=== PATIENT | female | born 1935 | race Caucasian/White ===

== ENCOUNTER 2017-07-21 10:04 | Inpatient (IN) | payer MEDICARE, OTHER, SELFPAY ==
[2017-07-06 14:56] VITALS: BP 143/67; PULSE 63; RESP 18; TEMP 36.9; O2SAT 98; BMI 30.2
--- NOTE | 2017-07-06 15:05 | EKG12_ITS ---
Test Reason : Blood Pressure : / mmHG Vent. Rate : 069 BPM Atrial Rate : 060 BPM P-R Int : 000 ms QRS Dur : 118 ms QT Int : 462 ms P-R-T Axes : 000 -38 096 degrees QTc Int : 495 ms AV sequential or dual chamber electronic pacemaker Confirmed by ISABEL MCQUEEN, GAEL ([id number]), book editor TERRI MENA ([id number]) on 07/08/2017 2:34:09 PM Referred By: Sukh Parr Confirmed By:GAEL HALL MD
[2017-07-06 16:31] LABS: Hematocrit 42.5 % (37-47); Hemoglobin 14.1 g/dl (12.0-15.0); Mean Corp Hgb Conc 33.2 g/gl (32-36); Mean Corpuscular Volume 99.5 fL (81-99); Mean Platelet Vol. 11.4 fl (6.2-12.0); Platelet Count 167 K/mm3 (150-450); RBC Distribution Width SD 43.1 fl (35.1-43.9); Red Blood Count 4.27 M/mm3 (4.2-5.4); White Blood Count 6.9 K/mm3 (4.4-11.0)
[2017-07-06 16:40] LABS: Scan Indicated on CBC? Y/N NO
[2017-07-06 17:05] LABS: Partial Thromboplast Time 30.1 Seconds (24.1-36.2); Prothrombin Time (Protime)PT. 13.1 SECONDS (11.7-14.9)
[2017-07-06 17:15] LABS: AST(SGOT) 28 U/L (15-37); Alanine Aminotransfer ALT/SGPT 20 U/L (13-56); Albumin, Serum 4.3 g/dL (3.2-5.0); Alkaline Phosphatase 81 U/L (45-117); Anion Gap 9 (5-15); BUN 18 mg/dL (7-18); BUN/Creat Ratio 19.2 RATIO (10-20); Bilirubin, Direct 0.06 mg/dL (0.00-0.30); Calcium,Total 9.4 mg/dL (8.5-10.1); Chloride 102 mmol/L (98-107); Creatinine, Serum 0.94 mg/dL (0.55-1.02); EST Glomerular Filtration Rate 61 mL/min (>60); Est Glom Filt Rate - Afr Amer 74 mL/min (>60); Estimated Creatinine Clearance 37.75 ml/min; Globulin 3.3 g/dL (2.2-4.2); Glucose 101 mg/dL (74-106); Potassium 4.6 mmol/L (3.5-5.1); Protein, Total 7.6 g/dL (6.4-8.2); Sodium Level 139 mmol/L (136-145)
--- NOTE | 2017-07-06 21:24 | PCM.HP.BLA ---
History and Physical DATE OF SERVICE: 07/21/2017 SCHEDULED PROCEDURE: Direct anterior left total hip arthroplasty HISTORY OF PRESENT ILLNESS: This is a 82-year-old female who is been having ongoing pain in the left hip since 2015. Pain can reach as high as an 8-9 out of 10. Pain is been aching. Pain is increased with going up and down stairs, walking any amount of distance and with cold weather. Pain is in the left hip and groin. Patient does report start up pain. Patient has difficult time with activities of daily living including bathing and showering as well as doing housework. Patient denies previous surgery on the left hip. She does use a walker for ambulatory assistance. Patient has the modifier sleeping and sleeps in a recliner due to her pain. After failing conservative measures and discussing all treatment options with Dr. Parr, the patient would like to proceed with a left total hip arthroplasty. Patient currently denies any chest pain, shortness of breath, fevers chills, or recent infections. Patient has obtained surgical clearance from her primary care physician Dr. Austin and cardiac clearance from Dr. Bella. Patient does have medical history pertinent for hypertension, history of previous blood clot and pulmonary embolism, dementia, anemia, previous heart bypass surgery and pacemaker placement, history of atrial fibrillation, ischemic cardiomyopathy. REVIEW OF SYSTEMS: ROS: Const: PT DENIES APPETITE AND WEIGHT CHANGES AT THIS TIME, AND denies anorexia, anxiety and fever,hard of hearing, and vision problems. ENMT: Reports hearing difficulty of the left ear. CV: Reports chest pain, irregular heartbeat, pacemaker and phlebitis, but denies heart murmur and peripheral vascular disease. Resp: Reports pneumonia, sleep apnea and SOB, but denies asthma, cough, tuberculosis and wheezing. GI: Reports heartburn, but denies constipation, diarrhea, nausea, bloody stools and vomiting, and difficulty swallowing. : Genital:. (F Genital Sx) Urinary: denies incontinence. Musculo: Reports trouble walking, but denies leg swelling and weakness and limp. Skin: Denies Raynaud's, history of shingles and tattoo. Neuro: Denies ambulatory dysfunction, dizziness and tremor. Psych: Reports insomnia and stress, but denies anxiety, depression and mental illness. Wilmer/Lymph: Reports anemia, bleeding/bruising tendency and past transfusion. Reviewed, no changes. PAST MEDICAL HISTORY: Advance Care Plan: Other Directive, P.O.A Effective Date: 12/10/2015 PMH: Medical Problems: Arthritis, Congestive Heart Failure (CHF), Coronary Artery Disease (CAD), High Blood Pressure Pacemaker - PACEMAKER WITH DIFIBULATOR Ulcers, History Of Phlebitis, Anemia, Dementiona Stroke - SEPTEMBER 30, 2010 Neuropathy Accidents: Fracture - (09/07/2013) BILAT FEMUR Surgical Hx: Knee Replacement - (2002) LT KNEE [facility] Appendectomy, Gallbladder, Hysterectomy, Tonsillectomy, Cyst Removal Of The Right Breast RT TKR - (10/05/2007) DR MONTESINOS AT [facility] Carpal Tunnel Release RT - (09/14/2008) DR MONTESINOS AT [facility] Pacemaker Replacement - (05/2012) Babak Lens Transplants, Carpal Tunnel Release LT Knee Replacement LT - (09/07/2013) W/FEMUR JUNI Knee Replacement RT - (09/07/2013) W/FEMUR JUNI Open Heart SX - (10/26/2015) @[facility] Anesthesia Complications: None Assistive Devices: Glasses, Hearing Aid, Dentures Reviewed, no changes. SOCIAL HISTORY: SH: Marital: .Occupation: Disabled.Work Status: Disabled.Hand Dominance: Right-handed. Personal Habits: Smoking: Patient is a former smoker.Cigarette Use: Never.Alcohol: Denies use.Drug Use: Denies Use.Enjoy Exercising: Never Exercises. Reviewed, no changes. VITALS: Ht: 59 Wt: 163lb Wt k.937 BMI: 32.9 BP: 134/74 Pulse: 72 Resp: 16 T: 98.1 T: 531.7C ALLERGIES: Tolectin - hives Percocet - vomiting Phenobarbitol - vomiting Tape Nitroglycerin - Patch Lodine - vomitting Donepezil Venlafaxine MEDICATIONS: Quinapril HCL 40mg 1 tab PO qpm, Carvedilol 25 mg 1 PO bid, Aspir-Low 81 mg 1 po qd, Tylenol Extra Strength 500 mg 2 PO prn, Gabapentin 100 mg 1 cap PO at noon and 2 caps PO qhs, Melatonin Maximum Strength 5 mg prn, Coenzyme Q-10 200 mg 1 cap PO daily, Magnesium Oxide 400 mg 1 tab PO qhs, Amlodipine Besylate 10 mg 1 tab PO daily, Furosemide 40 mg 1 tab PO daily, Tramadol HCL 50 mg 1-2 by mouth every 6 hours as needed pain, Atorvastatin Calcium 40 mg 1 by mouth every day, Nitrostat 0.4 mg prn chest pain, Esomeprazole Magnesium 40 mg 1 cap PO daily, Vitamin D3 62239 Unit 1 by mouth every day PRE-OP EXAM: General appearance:NORMAL Other: Eyes: Conjunctivae and lids: NORMAL Pupils: ERR Ears, Nose, Mouth, and Throat: NORMAL Other: Inspection of lips, teeth and gums: NORMAL Other: Neck: Examination of neck: no masses noted. Respiratory: Assessment of respiratory effort: NORMAL Other: Ausculation of lungs: clear to ausculation no wheeses, ronchi or rales. Cardiovascular: Ausculation of heart: regular rate and rhythem, positive systolic mummur, no gallops or rubs. Exam of carotid arteries: NORMAL Other: Gastrointestinal: Exam of abdomen: soft, nontender, nondistended bowel sounds present. Lymphatic: Palpation of nodes in neck: NORMAL Other: Palpation of nodes in Axillae: NORMAL Other: Neurological: see below Psychiatric: Orientation to time, place and person: NORMAL Other: Mood and affect: NORMAL Other: PHYSICAL EXAMINATION: Patient has antalgic gait and uses a walker. Patient has limited internal and external rotation due to pain. She has a 20? flexion hip contracture. Sensations intact light touch. IMAGING STUDIES: X-rays of the left hip were obtained at [facility] [place] on June 15, 2017 which reveals joint space narrowing, subchondral sclerosis, and osteophyte formation consistent with severe hypertrophic osteoarthritis. IMPRESSION: 1. Severe left hip osteoarthritis 2. Hypertension 3. Coronary artery disease 4. Ischemic cardiomyopathy 5. History of heart bypass and pacemaker placement 6. Dementia 7. Anemia 8. History of ulcers 9. Hypercholesterolemia 10. History of stroke 2010 11. Neuropathy 12. History of atrial fibrillation PLAN: Dr. Parr did discuss and review with the patient all treatment options including surgical versus nonsurgical. Patient wishes to proceed with above-stated procedure. Potential risks, benefits, and complications of this procedure were discussed in detail including but not limited to , infection, nerve and blood vessel damage, persistent pain, numbness, tingling, paresthesias, blood clot, pulmonary embolism, and requirement for further surgery. The patient expressed full understanding has no further questions for the doctor. Patient does agree to proceed with the above-stated procedure and has signed the surgery consent form. Surgical clearance has been obtained from primary care physician and support dba. ___ I have re-examined the patient. There are no clinical changes since date of exam. ___ See progress notes for changes. ___ Dictated on admission Date: Time: Signature:
--- NOTE | 2017-07-06 21:34 | HP.PCM_ITS ---
History and Physical DATE OF SERVICE: 07/21/2017 SCHEDULED PROCEDURE: Direct anterior left total hip arthroplasty HISTORY OF PRESENT ILLNESS: This is a 82-year-old female who is been having ongoing pain in the left hip since 2015. Pain can reach as high as an 8-9 out of 10. Pain is been aching. Pain is increased with going up and down stairs, walking any amount of distance and with cold weather. Pain is in the left hip and groin. Patient does report start up pain. Patient has difficult time with activities of daily living including bathing and showering as well as doing housework. Patient denies previous surgery on the left hip. She does use a walker for ambulatory assistance. Patient has the modifier sleeping and sleeps in a recliner due to her pain. After failing conservative measures and discussing all treatment options with Dr. Parr, the patient would like to proceed with a left total hip arthroplasty. Patient currently denies any chest pain, shortness of breath , fevers chills, or recent infections. Patient has obtained surgical clearance from her primary care physician Dr. Austin and cardiac clearance from Dr. Bella. Patient does have medical history pertinent for hypertension, history of previous blood clot and pulmonary embolism, dementia, anemia, previous heart bypass surgery and pacemaker placement, history of atrial fibrillation, ischemic cardiomyopathy. REVIEW OF SYSTEMS: ROS: Const: PT DENIES APPETITE AND WEIGHT CHANGES AT THIS TIME, AND denies anorexia, anxiety and fever,hard of hearing, and vision problems. ENMT: Reports hearing difficulty of the left ear. CV: Reports chest pain, irregular heartbeat, pacemaker and phlebitis, but denies heart murmur and peripheral vascular disease. Resp: Reports pneumonia, sleep apnea and SOB, but denies asthma, cough, tuberculosis and wheezing. GI: Reports heartburn, but denies constipation, diarrhea, nausea, bloody stools and vomiting, and difficulty swallowing. : Genital:. (F Genital Sx) Urinary: denies incontinence. Musculo: Reports trouble walking, but denies leg swelling and weakness and limp. Skin: Denies Raynaud's, history of shingles and tattoo. Neuro: Denies ambulatory dysfunction, dizziness and tremor. Psych: Reports insomnia and stress, but denies anxiety, depression and mental illness. Wilmer/Lymph: Reports anemia, bleeding/bruising tendency and past transfusion. Reviewed, no changes. PAST MEDICAL HISTORY: Advance Care Plan: Other Directive, P.O.A Effective Date: 12/10/2015 PMH: Medical Problems: Arthritis, Congestive Heart Failure (CHF), Coronary Artery Disease (CAD), High Blood Pressure Pacemaker - PACEMAKER WITH DIFIBULATOR Ulcers, History Of Phlebitis, Anemia, Dementiona Stroke - SEPTEMBER 30, 2010 Neuropathy Accidents: Fracture - (09/07/2013) BILAT FEMUR Surgical Hx: Knee Replacement - (2002) LT KNEE [facility] Appendectomy, Gallbladder, Hysterectomy, Tonsillectomy, Cyst Removal Of The Right Breast RT TKR - (10/05/2007) DR MONTESINOS AT [facility] Carpal Tunnel Release RT - (09/14/2008) DR MONTESINOS AT [facility] Pacemaker Replacement - (05/2012) Babak Lens Transplants, Carpal Tunnel Release LT Knee Replacement LT - (09/07/2013) W/FEMUR JUNI Knee Replacement RT - (09/07/2013) W/FEMUR JUNI Open Heart SX - (10/26/2015) @[facility] Anesthesia Complications: None Assistive Devices: Glasses, Hearing Aid, Dentures Reviewed, no changes. SOCIAL HISTORY: SH: Marital: .Occupation: Disabled.Work Status: Disabled.Hand Dominance: Right-handed. Personal Habits: Smoking: Patient is a former smoker.Cigarette Use: Never.Alcohol: Denies use.Drug Use: Denies Use.Enjoy Exercising: Never Exercises. Reviewed, no changes. VITALS: Ht: 59 Wt: 163lb Wt k.937 BMI: 32.9 BP: 134/74 Pulse: 72 Resp: 16 T: 98.1 T: 531.7C ALLERGIES: Tolectin - hives Percocet - vomiting Phenobarbitol - vomiting Tape Nitroglycerin - Patch Lodine - vomitting Donepezil Venlafaxine MEDICATIONS: Quinapril HCL 40mg 1 tab PO qpm, Carvedilol 25 mg 1 PO bid, Aspir-Low 81 mg 1 po qd, Tylenol Extra Strength 500 mg 2 PO prn, Gabapentin 100 mg 1 cap PO at noon and 2 caps PO qhs, Melatonin Maximum Strength 5 mg prn, Coenzyme Q-10 200 mg 1 cap PO daily, Magnesium Oxide 400 mg 1 tab PO qhs, Amlodipine Besylate 10 mg 1 tab PO daily, Furosemide 40 mg 1 tab PO daily, Tramadol HCL 50 mg 1-2 by mouth every 6 hours as needed pain, Atorvastatin Calcium 40 mg 1 by mouth every day, Nitrostat 0.4 mg prn chest pain, Esomeprazole Magnesium 40 mg 1 cap PO daily, Vitamin D3 86427 Unit 1 by mouth every day PRE-OP EXAM: General appearance:NORMAL Other: Eyes: Conjunctivae and lids: NORMAL Pupils: ERR Ears, Nose, Mouth, and Throat: NORMAL Other: Inspection of lips, teeth and gums: NORMAL Other: Neck: Examination of neck: no masses noted. Respiratory: Assessment of respiratory effort: NORMAL Other: Ausculation of lungs: clear to ausculation no wheeses, ronchi or rales. Cardiovascular: Ausculation of heart: regular rate and rhythem, positive systolic mummur, no gallops or rubs. Exam of carotid arteries: NORMAL Other: Gastrointestinal: Exam of abdomen: soft, nontender, nondistended bowel sounds present. Lymphatic: Palpation of nodes in neck: NORMAL Other: Palpation of nodes in Axillae: NORMAL Other: Neurological: see below Psychiatric: Orientation to time, place and person: NORMAL Other: Mood and affect: NORMAL Other: PHYSICAL EXAMINATION: Patient has antalgic gait and uses a walker. Patient has limited internal and external rotation due to pain. She has a 20? flexion hip contracture. Sensations intact light touch. IMAGING STUDIES: X-rays of the left hip were obtained at [facility] [place] on June 15, 2017 which reveals joint space narrowing, subchondral sclerosis, and osteophyte formation consistent with severe hypertrophic osteoarthritis. IMPRESSION: 1. Severe left hip osteoarthritis 2. Hypertension 3. Coronary artery disease 4. Ischemic cardiomyopathy 5. History of heart bypass and pacemaker placement 6. Dementia 7. Anemia 8. History of ulcers 9. Hypercholesterolemia 10. History of stroke 2010 11. Neuropathy 12. History of atrial fibrillation PLAN: Dr. Parr did discuss and review with the patient all treatment options including surgical versus nonsurgical. Patient wishes to proceed with above- stated procedure. Potential risks, benefits, and complications of this procedure were discussed in detail including but not limited to , infection , nerve and blood vessel damage, persistent pain, numbness, tingling, paresthesias, blood clot, pulmonary embolism, and requirement for further surgery. The patient expressed full understanding has no further questions for the doctor. Patient does agree to proceed with the above-stated procedure and has signed the surgery consent form. 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 ___ I have re-examined the patient. There are no clinical changes since date of exam. ___ See progress notes for changes. ___ Dictated on admission Date: Time: Signature:
--- NOTE | 2017-07-16 15:40 | CASEMGMT ---
RN CM called and spoke with patient regarding discharge needs after upcoming surgery. Patient states that he has a walker, cane, shower chair, BSC and denies need for further DME. Patient states she lives alone and Dr. Parr was recommending patient go to a SNF. Patient stated that she has been to [facility] previously and would like to go there again if needed. CATHERINE MEDINA will update SW regarding discharge plans. CATHERINE MEDINA will follow up with patient after surgery and will assist with discharge needs.
[2017-07-21] VITALS (16 sets, daily range): BP systolic 88–147; BP diastolic 36–85; PULSE 65–85; RESP 14–18; TEMP 36.4–37.4; O2SAT 94–100; BMI 30.2; BMI 32.1
--- NOTE | 2017-07-21 | HIP_PTH ---
PATIENT: KITTY MORELOS LOC: [id number] U#:[id number] AGE/SX: 82/F ROOM: [facility] RE07/21/[address]: Dr. Orestes Welch MD : [id number] BED: 1 DIS: 07/24/2017 SPEC #: [id number] RECD: 07/21/17 15:41 STATUS: DANYELLE REJosemanuel #: [id number] JOHN: 07/21/17 00:[address]: Sukh Parr DEPT: SURGICAL PATHOLOGY RECD BY: Nahun Parr ENTERED: 07/21/17 15:42 SP TYPE: TOTAL HIP OTHR DR: MD Dr. Bijan Bronson MD Tissues: Hip, NOS Procedures: Decalcification bone/plaque Surgery Specimen Level IV HEADER OPERATION: Total hip anterior approach PRE-OP DIAGNOSIS: Severe left hip osteoarthritis TISSUE SUBMITTED: Femoral head bone and tissue, left MICROSCOPIC DIAGNOSIS Bone and soft tissue of left hip, total hip resection: Severe degenerative joint disease. AM:miranda 07/24/17 MICROSCOPIC DESCRIPTION Slides are reviewed. GROSS DESCRIPTION Received is one container designated left femoral head, bone and tissue. The specimen consists of a ochoa femoral head with portion of femoral neck. The femoral head measures 4.5 x 5 x 4 cm and the portion of femoral neck measures 2 cm in length. The articular surface displays prominent osteophyte formation, eburnation and bone erosion. The soft tissue entirely consists of bone reamings and measures in aggregate 7 x 7 x 2 cm. Dental Service Chief sections are submitted in two cassettes after decalcification as follows: 1 ? bone reamings, 2 ? femoral head. / SJ:miranda 07/21/17 TC:5 CPT: 03474, 66818
[2017-07-21] MEDS: Acetaminophen 500 MG Tablet 1000 MG PO ×2 (10:53→23:25)
--- NOTE | 2017-07-21 13:10 | RAD_ITS ---
STUDY: X-RAY - PELVIS AND LEFT HIP REASON FOR EXAM: Female, 82 years old. Intraoperative assessment TECHNIQUE: One view of the pelvis and hip was obtained. COMPARISON: July 02, 2013 FINDINGS: The bowel gas pattern is unremarkable. The soft tissues are unremarkable. A limited view of the pelvis shows marked degenerative changes in the left hip joint. Hardware is present in the right hip joint. Fluoroscopy time 6.7 seconds. Cumulative dose 0.56 mGy. RAD/Hip 1 view with Pelvis IMPRESSION: A limited view of the pelvis was submitted from intraoperative evaluation during hip replacement. Electronically Signed: Zenobia Song MD at 15:54 EDT Tel Direct: [phone], Service support ,
[2017-07-21] MEDS: Cefazolin 2 GM in 0.9% Normal Saline 100 ML IV (13:20)
--- NOTE | 2017-07-21 14:58 | PCM.OPRPT ---
Report of Operation Date of Procedure: 07/21/17 Pre-Operative Diagnosis: Left hip primary osteoarthritis Post-Operative Diagnosis: Left hip primary osteoarthritis Surgery/Procedure Performed:: Left total hip replacement Description of Surgical Findings:: Stable hips. On radiographs of the pelvis lesser trochanters were at same level signifying hip anatomy was restored. Medial malleoli did show residual leg length deficit likely due to patient's previous distal femoral replacements bilaterally. director outpatient services: Akbar Williamson Type of Anesthesia:: General Anesthesiologist: Bijan Reed Special Medications: 2 g Ancef, 1 g TXA at incision, 1 g TXA closure, 10 mg Decadron, joint cocktail (5 mg Duramorph, 30 mL of 0.5% Ropivicaine, 1000 units of epinephrine, 30 mg of Toradol), 1.25 g vancomycin preoperatively for positive MRSA swab Specimen's removed: Bony cuts Estimated Blood Loss (mL): 50 Fluids Replaced: 1800 mL crystalloid Description of Procedure: Components used: 1. Gini fit more stem size 4B 2. [place] trident acetabular shell size 52 mm 3. [place] X3 polyethylene alpha code E 4. Gini Biolox delta 36mm, 0mm femoral head Brief history operative indications: 82 yo f who failed conservative measures for their hip osteoarthritis. X-rays were consistent with osteoarthritis including joint space narrowing, osteophyte formation and subchondral cysts. Total hip replacement was discussed with the patient with risks and benefits including but not limited to blood loss, DVTs, PEs, neurovascular damage, dislocation, general risks of anesthesia including loss of life. Patient demonstrated an understanding medical clearance is obtained the patient was consented for surgery. Patient had a history of bilateral distal femoral placement. Based on her cemented femoral stems needed to find a short stem that would accommodate her available anatomy. Elected to use my standard acetabular cup and liner with a Gini fit more stem. I did discuss the patient preoperatively off label use and the reasons why we would use this including her anatomy and long cemented femoral stems from her total knees. Patient demonstrated understanding and was comfortable moving forward. Procedure: On the date of procedure the patient's L hip was marked in the preoperative area. Patient was then taken back to the operating room where anesthesia assumed control of the C-spine and airway and administered anesthetic. Patient was transferred to the operating table and placed in the supine position. The hips were placed at the break of the bed and a sacral bump was placed. The L lower extremity was then prepped out in a sterile fashion using chlorhexidine while the surgeon scrubbed. The PA was vital in the positioning of the patient. Upon reentering the room the L lower extremity was draped in the standard orthopedic fashion and the incision was marked. A timeout was called and everyone agreed upon the side, the site, the procedure be performed, antibody given, and patient's identity. At this time incision was made through skin, subcutaneous tissue, and fat down to fascia. The fascia was then incised and the TFL was retracted laterally. A retractor was placed on the lateral border of the femoral neck. Attention was directed to the inferior portion of the approach and all crossing vessels were identified and appropriately coagulated. A retractor was then placed on the medial portion of the femoral neck. The anterior capsule was then cleared of all soft tissue and then H shaped capsulotomy was made. The retractors were then placed inside the capsule. The femoral neck was identified and a cleanup cut was made. At this time a power corkscrew was used to remove the femoral head. Attention was then turned toward the acetabulum where the soft tissues were appropriately retracted and the acetabulum was sequentially reamed to 51 mm. A 52 mm cup was then selected and impacted into place. Acetabular liner was impacted into place and locking mechanism was verified. The position of the acetabular cup was then verified under live fluoroscopy. Attention was then turned to the femur. Soft tissue releases on the medial and lateral femoral neck were appropriately done, the leg was externally rotated and lateralized. A Ashley retractor was placed medially and proximally to the greater trochanter this allowed appropriate visualization and exposure of the femoral canal. Rongeour was then used to remove excess lateral bone. A canal finder and entry broach were used to open the proximal canal. Once we verified we were down the femoral canal we subsequently broached up to a size 4B femur. The appropriate neck was placed in the previously selected head was trialed with a 0 mm neck. Traction was pulled and the hip was reduced with internal rotation. Once it was appropriately reduced and stability was checked. There was minimal shuck, equal leg lengths and appropriate stability with hyperextension and external rotation as well as with 90? flexion and internal rotation. Fluoroscopy was then also used to verify the position of the components and leg lengths using the contralateral side for comparison. The trial components were then dislocated the proximal femur was again exposed and the components were removed from the wound. The final components were verified and opened. The wound was copiously irrigated out with normal saline. The acetabulum was checked for any residual debris. The final components were placed and impacted. Traction and internal rotation were again used to reduce the hip. After adequate reduction the hip remained stable with appropriate leg lengths pelvic radiograph. The final components were once again checked with live fluoroscopy and were found to be satisfactory. The wound was then copiously irrigated with normal saline once more, and hemostasis was obtained. Closure was then done using #1 Vicryl runner to close the fascia. A 2-0 vicryl interuppted sutures were used to close the subcutaneous skin. A 3-0 Monocryl and Steri-Strips were used for final skin closure. A Silverlon dressing was placed. Patient was awakened by anesthesia and transferred to the [facility]. Patient was then transferred to the PACU for recovery. Postoperative plan: Patient will get 24 hours postop antibiotics. Patient will get in-house physical therapy and will be weight-bear as tolerated. Patient will follow up in office in 2 weeks for a wound check and x-rays. During the course of the procedure the physician cook's assistant played a vital role. His intimate knowledge of my steps in the procedure aided in safe and expedient completion of the procedure. The PA played a vital rolls in positioning particularly in obtaining the appropriate positioning of the sacral bump. The PA was also vital in the retraction of soft tissues during the exposure and especially the femoral work as this is a vital part of the procedure to prevent complications and fractures. The PA was also vital and protecting soft tissues during times of bony cuts and reaming. He also played a vital role in closure with my direct supervision. The PA was also important during reduction and dislocation of the joint and trials intraoperatively. Grafts/Implants Used: Aldo acetabular component, Gini femoral component - Complications none - Admit VTE Documentation VTE Present on Admission: No VTE Mechan Device Prophylaxis: SCD's, Thigh High PENNY Hose VTE Pharm Prophylaxis ordered?: Yes
--- NOTE | 2017-07-21 15:40 | RAD_ITS ---
STUDY: X-RAY - PELVIS AND LEFT HIP REASON FOR EXAM: Female, 82 years old. Postop. TECHNIQUE: Radiological exam, hip, unilateral, with pelvis when performed; 2 or 3 views. COMPARISON: Left hip, July 02, 2013. FINDINGS: There is a non-specific bowel gas pattern. Rectum is distended with air. Normal visualized soft tissue structures. There is generalized osteopenia Normal bilateral iliac wings, sacroiliac joints and visualized sacrum. Normal bilateral superior and inferior pubic rami. Normal pubic symphysis. Normal bilateral ischial tuberosities. There is a left total hip arthroplasty. The prosthetic components are intact and articulate normally with each other. There is no fracture or loosening from the underlying bone. An incidental finding is presence of metallic shadows within the lower femoral medullary cavity suggesting knee replacements. These were not noted on the previous study. RAD/Hip Min 2 Views (Portable) IMPRESSION: Status post left colon hip arthroplasty. Electronically Signed: Santiago Guthrie DO at 16:22 EDT Tel [phone], Service support ,
--- NOTE | 2017-07-21 16:27 | PCM.CONS.GEN ---
Problem List (1) Ischemic cardiomyopathy Status: Chronic (2) Paroxysmal atrial fibrillation Status: Chronic (3) Biventricular ICD (implantable cardioverter-defibrillator) in place Status: Chronic (4) Hyperthyroidism Status: Chronic (5) Atherosclerotic heart disease of [place] coronary artery without angina pectoris Status: Chronic Qualifiers: [place] vs. transplanted heart: [place] heart Qualified Code(s): I25.10 - Atherosclerotic heart disease of [place] coronary artery without angina pectoris Comment: CABG x1 RANDLE-LAD x/Aortic Valve Replacement (6) Nonrheumatic aortic valve stenosis Status: Chronic (7) HTN (hypertension) Status: Chronic (8) Hyperlipidemia Status: Chronic Qualifiers: Hyperlipidemia type: pure hypercholesterolemia Qualified Code(s): E78.00 - Pure hypercholesterolemia, unspecified; E78.00 - Pure hypercholesterolemia, unspecified; E78.00 - Pure hypercholesterolemia, unspecified; E78.0 - Pure hypercholesterolemia (9) Paroxysmal ventricular tachycardia Status: Chronic (10) 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 History of Present Illness: The patient is a 82 year old F with complicated past medical history underwent elective left total hip replacement today for left hip osteoarthritis and I am seeing this patient in medical consultation for postoperative management. At this time, patient in the PACU and she was sleepy. She was easily arousable. She is alert and oriented. She complained of left hip pain which is around 9 out of 10 in severity. She denied chest pain or shortness of breath. Denied abdominal pain, nausea vomiting. She denies fever or chills. She denies cough or sputum production. She had a history of aortic valve replacement with bioprosthetic valve for aortic stenosis. She has history of chronic CHF/ischemic cardiomyopathy status post biventricular ICD and seems to be in euvolemic status at this time. She has history of paroxysmal A. fib status post pacemaker last pacer check was back in April, that showed one episode of nonsustained V. tach. Last 2D echocardiogram was from July, and showed ejection fraction of 55%. At this time, her vital signs are stable, afebrile and pulse ox is 94% on room air. Preoperative routine blood work that was done on July 06, 2017 was unremarkable. At this time, she is on IV cefazolin for perioperative prophylaxis. Past Medical History Past Medical History (Chronic Problems): Chronic Problems (Last Updated 06/23/17 @ 17:11 by BETTIE Batista) Ischemic cardiomyopathy (Chronic) Paroxysmal atrial fibrillation (Chronic) 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) Hyperthyroidism (Chronic) Hypokalemia (Chronic) Atherosclerotic heart disease of [place] coronary artery without angina pectoris (Chronic) CABG x1 RANDLE-LAD x/Aortic Valve Replacement Left bundle-branch block (Chronic) Nonrheumatic aortic valve stenosis (Chronic) HTN (hypertension) (Chronic) Other chest pain (Chronic) Presence of aortocoronary bypass graft (Chronic) Dyspnea on exertion (Chronic) Fatigue (Chronic) Chronic pulmonary heart disease (Chronic) CVA (cerebral infarction) (Chronic) Hyperlipidemia (Chronic) Paroxysmal ventricular tachycardia (Chronic) HTN (hypertension) (Chronic) Hypothyroidism associated with surgical procedure (Chronic) had a subtotal thyroidectomy for goiter Hemorrhoids (Chronic) Restless leg syndrome (Chronic) TIA (transient ischemic attack) (Chronic) multiple Allergies adhesive Allergy (Verified 07/06/17 14:37) Unknown donepezil [Donepezil] Allergy (Verified 07/06/17 14:37) Unknown nitroglycerin Allergy (Verified 07/06/17 14:37) Unknown oxycodone HCl [From Percocet] Allergy (Verified 07/06/17 14:37) Unknown phenobarbital Allergy (Verified 07/06/17 14:37) Unknown tolmetin sodium [From Tolectin] Allergy (Verified 07/06/17 14:37) Unknown venlafaxine Allergy (Verified 07/06/17 14:37) Unknown nitropatch Allergy (Uncoded 07/06/17 14:37) unknown Home Medications: Ambulatory Orders Medication Instructions Recorded Aspirin [Aspirin, Baby] 81 mg PO DAILY@0800 04/09/13 Quinapril HCl [Accupril] 40 mg PO DAILY 07/01/13 Magnesium Oxide [Mag-Ox 400] 400 mg PO DAILY 09/17/15 Nitroglycerin [Nitrostat] 0.4 mg SUBLINGUAL Q5M PRN 09/20/15 acetaminophen 500 mg tablet 1,000 mg PO BID tab 05/05/17 coenzyme Q10 200 mg capsule 200 mg PO DAILY 05/05/17 gabapentin 100 mg capsule 200 mg PO BID 05/05/17 tramadol 50 mg tablet 1 - 2 tablet PO Q6H PRN tab 05/05/17 esomeprazole magnesium 40 mg 40 mg PO DAILY cap 05/07/17 capsule,delayed release melatonin 3 mg tablet 3 mg PO HS PRN 05/07/17 amlodipine 5 mg tablet 5 mg PO DAILY 06/23/17 atorvastatin 40 mg tablet 20 mg PO QHS tab 06/23/17 furosemide 40 mg tablet 40 mg PO DAILY 06/23/17 Carvedilol [Coreg (Beta Gene)] 25 mg PO BID 07/06/17 Cholecalciferol (Vitamin D3) 1,000 unit PO DAILY 07/06/17 [Vitamin D3] Surgical History: appendectomy, cholecystectomy, coronary bypass surgery, hysterectomy - She still has ovaries and fallopian tubes. The hysterectomy was done for dysfunctional uterine bleeding., pacemaker implantation, total hip arthroplasty, - - Bioprosthetic aortic valve replacement with CABG in October 2015 Psychiatric History: No pertinent psych hx CARAM[employer] History: dysfunctional uterine bld Smoking Status: Never smoker Alcohol: None Drugs: None - *Family History Maternal History Items: No pertinent history Paternal History Items: No pertinent history Review of Systems Constitutional: Denies: Anorexia, Chills, Fever, Weakness Eyes: Denies: Blurred vision, Double vision, Drainage, Redness HEENT: Denies: Difficulty Hearing, Ear Pain, Eye Pain, Nasal Congestion, Sore Throat Cardiovascular: Denies: Chest Pain, Chest Tightness, Edema, Heaviness, Palpitations, Syncope Respiratory: Denies: Cough, Pleuritic Pain, Shortness of Breath, Sputum production, Wheezing Gastrointestinal: Denies: Abdominal Pain, Constipation, Diarrhea, Nausea, Vomiting Genitourinary: Denies: Dysuria, Frequency, Hematuria Musculoskeletal: Reports: Joint Pain. Denies: Arm Pain, Back Pain, Foot Pain Skin: Denies: Dryness, Rash Neurological: Denies: Balance problems, Double vision, Change in Speech, Slurred speech, Headaches, Incoordination, Numbness Psychiatric: Denies: Anxiety, Depression Endocrine: Denies: Change in Body Habitus, Polydipsia - Physical Exam General: Alert, Oriented x3, Cooperative, No apparent distress HEENT: Atraumatic, PERRLA, EOMI Oral: Moist Mucosa, No Gingival or Mucosal Lesions/ Ulcerations Neck: Supple, No JVD, Negative Carotid Bruits, Trachea Midline, Thyroid Normal Size and Texture Lungs: Clear to auscultation, No rhonchi, No wheeze, No rales, Diminished Cardiovascular: Regular rate, Regular Rhythm, Normal S1, Normal S2, No murmurs, PMI Normal, Irregular Rate Abdomen: Bowel Sounds Present, Soft, Non Tender, Non-Distended, No Hepato-splenomegaly Extremities: No clubbing, No cyanosis, No edema Skin: No rashes, No breakdown Lymphatic: No Cervical, Supraclavicular, or Inguinal Adenopathy Neurological: Cranial nerves II-XII grossly intact, Neuro grossly intact Psych/Mental Status: Normal Affect, Appropriate Vital Signs Temp Pulse Resp BP Pulse Ox 97.6 F L 68 14 134/72 H 94 07/21/17 15:28 07/21/17 15:28 07/21/17 15:28 07/21/17 15:28 07/21/17 15:28 Oxygen Delivery Method Room Air Weight: 165 lb 5.547 oz Body Mass Index (BMI) 30.2 Finger Stick Blood Glucose 156 Clinical Impression(s) from Imaging Studies Hip/Pelvis X-Ray 07/21/17 13:10 IMPRESSION: A limited view of the pelvis was submitted from intraoperative evaluation during hip replacement. Electronically Signed: Zenobia Song MD at 15:54 EDT Tel Direct: [phone], Service support , Hip X-Ray 07/21/17 15:40 IMPRESSION: Status post left colon hip arthroplasty. Electronically Signed: Santiago Guthrie DO at 16:22 EDT Tel [phone], Service support , Assessment/Plan This is an 82 years old female patient underwent elective left total hip replacement today for left hip osteoarthritis and I am seeing this patient in consultation for postoperative medical management in context of history of multiple complicated medical problems. #1 status post left hip replacement: This was done for left hip osteoarthritis, postoperative day 0. At this time, her vital signs are stable. She is on IV morphine and OxyIR as needed for pain. She is receiving IV cefazolin for perioperative prophylaxis. Preoperative routine blood work reviewed and was unremarkable. Orthopedic surgery is managing. CBC and BMP for tomorrow ordered. #2 hypertension: Blood pressure stable, continue Norvasc and Coreg as well as lisinopril. #3 ischemic cardiomegaly/chronic systolic CHF: Status post biventricular ICD. At this time, she seemed to be in euvolemic status, critical stable. Most recent 2D echocardiogram was from July, with ejection fraction of 55%. Plan: Continue Coreg, lisinopril, aspirin and statins, continue Lasix, avoid large amounts of IV fluids. #4 paroxysmal A. fib, status post pacemaker. Rate stable, blood pressure stable. Continue Coreg for rate control. She is not on anticoagulation. #5 CAD status post CABG: Stable, no acute issues. Patient denied any chest pain. Continue aspirin, statins, beta blockers and ESTUARDO inhibitors. #6 history of stroke/TIA: No complaints, stable. Continue aspirin and statins. #7 status post aortic valve replacement with bioprosthetic valve: Clinically stable, no acute issues. #8 hyperlipidemia: Continue statins. #9 DVT prophylaxis: SCDs for now, plan to start her on Xarelto tomorrow. This note was generated with [employer] dictation software. It may contain incorrect words, spelling, and punctuation that were not noted in checking the note before signing. Code Visit Inpatient E&M: 32494 Init Hosp L2
--- NOTE | 2017-07-21 16:32 | CON.PCM_ITS ---
Problem List (1) Ischemic cardiomyopathy Status: Chronic (2) Paroxysmal atrial fibrillation Status: Chronic (3) Biventricular ICD (implantable cardioverter-defibrillator) in place Status: Chronic (4) Hyperthyroidism Status: Chronic (5) Atherosclerotic heart disease of [place] coronary artery without angina pectoris Status: Chronic Qualifiers: [place] vs. transplanted heart: [place] heart Qualified Code(s): I25.10 - Atherosclerotic heart disease of [place] coronary artery without angina pectoris Comment: CABG x1 RANDLE-LAD x/Aortic Valve Replacement (6) Nonrheumatic aortic valve stenosis Status: Chronic (7) HTN (hypertension) Status: Chronic (8) Hyperlipidemia Status: Chronic Qualifiers: Hyperlipidemia type: pure hypercholesterolemia Qualified Code(s): E78.00 - Pure hypercholesterolemia, unspecified; E78.00 - Pure hypercholesterolemia, unspecified; E78.00 - Pure hypercholesterolemia, unspecified; E78.0 - Pure hypercholesterolemia (9) Paroxysmal ventricular tachycardia Status: Chronic (10) 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 History of Present Illness: The patient is a 82 year old F with complicated past medical history underwent elective left total hip replacement today for left hip osteoarthritis and I am seeing this patient in medical consultation for postoperative management. At this time, patient in the PACU and she was sleepy. She was easily arousable. She is alert and oriented. She complained of left hip pain which is around 9 out of 10 in severity. She denied chest pain or shortness of breath. Denied abdominal pain, nausea vomiting. She denies fever or chills. She denies cough or sputum production. She had a history of aortic valve replacement with bioprosthetic valve for aortic stenosis. She has history of chronic CHF/ ischemic cardiomyopathy status post biventricular ICD and seems to be in euvolemic status at this time. She has history of paroxysmal A. fib status post pacemaker last pacer check was back in April, that showed one episode of nonsustained V. tach. Last 2D echocardiogram was from July, and showed ejection fraction of 55%. At this time, her vital signs are stable, afebrile and pulse ox is 94% on room air. Preoperative routine blood work that was done on July 06, 2017 was unremarkable. At this time, she is on IV cefazolin for perioperative prophylaxis. Past Medical History Past Medical History (Chronic Problems): Chronic Problems (Last Updated 06/23/17 @ 17:11 by BETTIE Batista) Ischemic cardiomyopathy (Chronic) Paroxysmal atrial fibrillation (Chronic) 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) Hyperthyroidism (Chronic) Hypokalemia (Chronic) Atherosclerotic heart disease of [place] coronary artery without angina pectoris (Chronic) CABG x1 RANDLE-LAD x/Aortic Valve Replacement Left bundle-branch block (Chronic) Nonrheumatic aortic valve stenosis (Chronic) HTN (hypertension) (Chronic) Other chest pain (Chronic) Presence of aortocoronary bypass graft (Chronic) Dyspnea on exertion (Chronic) Fatigue (Chronic) Chronic pulmonary heart disease (Chronic) CVA (cerebral infarction) (Chronic) Hyperlipidemia (Chronic) Paroxysmal ventricular tachycardia (Chronic) HTN (hypertension) (Chronic) Hypothyroidism associated with surgical procedure (Chronic) had a subtotal thyroidectomy for goiter Hemorrhoids (Chronic) Restless leg syndrome (Chronic) TIA (transient ischemic attack) (Chronic) multiple Allergies adhesive Allergy (Verified 07/06/17 14:37) Unknown donepezil [Donepezil] Allergy (Verified 07/06/17 14:37) Unknown nitroglycerin Allergy (Verified 07/06/17 14:37) Unknown oxycodone HCl [From Percocet] Allergy (Verified 07/06/17 14:37) Unknown phenobarbital Allergy (Verified 07/06/17 14:37) Unknown tolmetin sodium [From Tolectin] Allergy (Verified 07/06/17 14:37) Unknown venlafaxine Allergy (Verified 07/06/17 14:37) Unknown nitropatch Allergy (Uncoded 07/06/17 14:37) unknown Home Medications: Ambulatory Orders Medication Instructions Recorded Aspirin [Aspirin, Baby] 81 mg PO DAILY@0800 04/09/13 Quinapril HCl [Accupril] 40 mg PO DAILY 07/01/13 Magnesium Oxide [Mag-Ox 400] 400 mg PO DAILY 09/17/15 Nitroglycerin [Nitrostat] 0.4 mg SUBLINGUAL Q5M PRN 09/20/15 acetaminophen 500 mg tablet 1,000 mg PO BID tab 05/05/17 coenzyme Q10 200 mg capsule 200 mg PO DAILY 05/05/17 gabapentin 100 mg capsule 200 mg PO BID 05/05/17 tramadol 50 mg tablet 1 - 2 tablet PO Q6H PRN tab 05/05/17 esomeprazole magnesium 40 mg 40 mg PO DAILY cap 05/07/17 capsule,delayed release melatonin 3 mg tablet 3 mg PO HS PRN 05/07/17 amlodipine 5 mg tablet 5 mg PO DAILY 06/23/17 atorvastatin 40 mg tablet 20 mg PO QHS tab 06/23/17 furosemide 40 mg tablet 40 mg PO DAILY 06/23/17 Carvedilol [Coreg (Beta Gene)] 25 mg PO BID 07/06/17 Cholecalciferol (Vitamin D3) 1,000 unit PO DAILY 07/06/17 [Vitamin D3] Surgical History: appendectomy, cholecystectomy, coronary bypass surgery, hysterectomy - She still has ovaries and fallopian tubes. 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 bld Smoking Status: Never smoker Alcohol: None Drugs: None - *Family History Maternal History Items: No pertinent history Paternal History Items: No pertinent history Review of Systems Constitutional: Denies: Anorexia, Chills, Fever, Weakness Eyes: Denies: Blurred vision, Double vision, Drainage, Redness HEENT: Denies: Difficulty Hearing, Ear Pain, Eye Pain, Nasal Congestion, Sore Throat Cardiovascular: Denies: Chest Pain, Chest Tightness, Edema, Heaviness, Palpitations, Syncope Respiratory: Denies: Cough, Pleuritic Pain, Shortness of Breath, Sputum production, Wheezing Gastrointestinal: Denies: Abdominal Pain, Constipation, Diarrhea, Nausea, Vomiting Genitourinary: Denies: Dysuria, Frequency, Hematuria Musculoskeletal: Reports: Joint Pain. Denies: Arm Pain, Back Pain, Foot Pain Skin: Denies: Dryness, Rash Neurological: Denies: Balance problems, Double vision, Change in Speech, Slurred speech, Headaches, Incoordination, Numbness Psychiatric: Denies: Anxiety, Depression Endocrine: Denies: Change in Body Habitus, Polydipsia - Physical Exam General: Alert, Oriented x3, Cooperative, No apparent distress HEENT: Atraumatic, PERRLA, EOMI Oral: Moist Mucosa, No Gingival or Mucosal Lesions/ Ulcerations Neck: Supple, No JVD, Negative Carotid Bruits, Trachea Midline, Thyroid Normal Size and Texture Lungs: Clear to auscultation, No rhonchi, No wheeze, No rales, Diminished Cardiovascular: Regular rate, Regular Rhythm, Normal S1, Normal S2, No murmurs, PMI Normal, Irregular Rate Abdomen: Bowel Sounds Present, Soft, Non Tender, Non-Distended, No Hepato- splenomegaly Extremities: No clubbing, No cyanosis, No edema Skin: No rashes, No breakdown Lymphatic: No Cervical, Supraclavicular, or Inguinal Adenopathy Neurological: Cranial nerves II-XII grossly intact, Neuro grossly intact Psych/Mental Status: Normal Affect, Appropriate Vital Signs Temp Pulse Resp BP Pulse Ox 97.6 F L 68 14 134/72 H 94 07/21/17 15:28 07/21/17 15:28 07/21/17 15:28 07/21/17 15:28 07/21/17 15:28 Oxygen Delivery Method Room Air Weight: 165 lb 5.547 oz Body Mass Index (BMI) 30.2 Finger Stick Blood Glucose 156 Clinical Impression(s) from Imaging Studies Hip/Pelvis X-Ray 07/21/17 13:10 IMPRESSION: A limited view of the pelvis was submitted from intraoperative evaluation during hip replacement. Electronically Signed: Zenobia Song MD at 15:54 EDT Tel Direct: [phone], Service support , Hip X-Ray 07/21/17 15:40 IMPRESSION: Status post left colon hip arthroplasty. Electronically Signed: Santiago Guthrie DO at 16:22 EDT Tel [phone], Service support , Assessment/Plan This is an 82 years old female patient underwent elective left total hip replacement today for left hip osteoarthritis and I am seeing this patient in consultation for postoperative medical management in context of history of multiple complicated medical problems. #1 status post left hip replacement: This was done for left hip osteoarthritis, postoperative day 0. At this time, her vital signs are stable. She is on IV morphine and OxyIR as needed for pain. She is receiving IV cefazolin for perioperative prophylaxis. Preoperative routine blood work reviewed and was unremarkable. Orthopedic surgery is managing. CBC and BMP for tomorrow ordered. #2 hypertension: Blood pressure stable, continue Norvasc and Coreg as well as lisinopril. #3 ischemic cardiomegaly/chronic systolic CHF: Status post biventricular ICD. At this time, she seemed to be in euvolemic status, critical stable. Most recent 2D echocardiogram was from July, with ejection fraction of 55%. Plan: Continue Coreg, lisinopril, aspirin and statins, continue Lasix, avoid large amounts of IV fluids. #4 paroxysmal A. fib, status post pacemaker. Rate stable, blood pressure stable. Continue Coreg for rate control. She is not on anticoagulation. #5 CAD status post CABG: Stable, no acute issues. Patient denied any chest pain. Continue aspirin, statins, beta blockers and ESTUARDO inhibitors. #6 history of stroke/TIA: No complaints, stable. Continue aspirin and statins. #7 status post aortic valve replacement with bioprosthetic valve: Clinically stable, no acute issues. #8 hyperlipidemia: Continue statins. #9 DVT prophylaxis: SCDs for now, plan to start her on Xarelto tomorrow. This note was generated with [employer] dictation software. It may contain incorrect words, spelling, and punctuation that were not noted in checking the note before signing. Code Visit Inpatient E&M: 42673 Init Hosp L2
--- NOTE | 2017-07-21 16:37 | CASEMGMT ---
Social Work Received referral from RN ADAM that prior to surgery pt requesting SNF placement for rehab at [facility]. Phone call to Zulema at [place] and they do have beds available. SW will followup with pt and fax referral tomorrow after pt receives therapy. FREDA Pantoja
[2017-07-21] MEDS: Lactated Ringers 1,000 ML 125 ML IV (16:45)
[2017-07-21] MEDS: Lactated Ringers 1,000 ML 75 ML IV (18:27)
[2017-07-21] MEDS: Cefazolin 1 GM/50 ML BAG IV (23:23)
[2017-07-21] MEDS: Gabapentin 100 MG Capsule 200 MG PO (23:24)
[2017-07-21] MEDS: Carvedilol 25 MG Tablet PO (23:24)
[2017-07-21] MEDS: Atorvastatin Calcium 20 MG Tablet PO (23:24)
[2017-07-21] MEDS: Senna/Docusate Sodium 1 Tablet 2 TABLET PO (23:25)
[2017-07-22 02:59] VITALS: BP 111/51; PULSE 85; RESP 22; TEMP 37.2; O2SAT 98
[2017-07-22 06:05] LABS: Hematocrit 28.7 % (37-47); Hemoglobin 9.5 g/dl (12.0-15.0); Mean Corp Hgb Conc 33.1 g/gl (32-36); Mean Corpuscular Hgb 33.3 pg (27.0-32.0); Mean Corpuscular Volume 100.7 fL (81-99); Mean Platelet Vol. 11.4 fl (6.2-12.0); Platelet Count 96 K/mm3 (150-450); RBC Distribution Width CV 12.1 % (11.6-14.6); RBC Distribution Width SD 43.5 fl (35.1-43.9); Red Blood Count 2.85 M/mm3 (4.2-5.4); White Blood Count 5.8 K/mm3 (4.4-11.0)
[2017-07-22 06:11] LABS: Scan Indicated on CBC? Y/N NO
[2017-07-22 06:18] LABS: Anion Gap 8 (5-15); BUN 12 mg/dL (7-18); BUN/Creat Ratio 19.9 RATIO (10-20); Chloride 108 mmol/L (98-107); EST Glomerular Filtration Rate 102 mL/min (>60); Est Glom Filt Rate - Afr Amer 123 mL/min (>60); Estimated Creatinine Clearance 35.49 ml/min; Glucose 96 mg/dL (74-106); Potassium 3.1 mmol/L (3.5-5.1); Sodium Level 142 mmol/L (136-145)
[2017-07-22] MEDS: Rivaroxaban 10 MG Tablet PO (06:20)
[2017-07-22] MEDS: Cefazolin 1 GM/50 ML BAG IV (06:20)
[2017-07-22] MEDS: Acetaminophen 500 MG Tablet 1000 MG PO ×3 (06:20→21:16)
--- NOTE | 2017-07-22 07:05 | PN.ORTHO_ITS ---
Subjective: The patient was sitting in bed upon examination. Patient denies any chest pain , shortness of breath, nausea or vomiting, or calf pain. Pain is controlled on medications. No adverse overnight events. Patient does state she plans on going to custodial facility upon discharge at [facility]. - Physical Exam General: Alert, Oriented x3, Cooperative, No apparent distress Vital Signs Temp Pulse Resp BP Pulse Ox 99.0 F 85 22 H 111/51 L 98 07/22/17 02:59 07/22/17 02:59 07/22/17 02:59 07/22/17 02:59 07/22/17 02:59 Oxygen Flow Rate (L/min) 2 Oxygen Delivery Method Nasal Cannula Weight: 79.6 kg Body Mass Index (BMI) 32.1 Finger Stick Blood Glucose 156 Intake and Output for Last 24 Hours 07/20/17 07/21/17 07/22/17 23:59 23:59 23:59 Intake Total 2892 / 2892 689 / 689 Balance 2892 / 2892 689 / 689 Laboratory Tests Past 24 Hrs 07/22/17 07/22/17 05:12 05:12 WBC 5.8 RBC 2.85 L Hgb 9.5 L Hct 28.7 L MCV 100.7 H MCH 33.3 H MCHC 33.1 RDW 12.1 RDW Differential 43.5 Plt Count 96 L MPV 11.4 Sodium 142 Potassium 3.1 L Chloride 108 H Carbon Dioxide 26.0 Anion Gap 8 BUN 12 Creatinine 0.60 Estim Creat Clear Calc 35.49 Est GFR (MDRD) Af Amer 123 Est GFR (MDRD) Non-Af 102 BUN/Creatinine Ratio 19.9 Glucose 96 Calcium 8.0 L Assessment/Plan 1. S/P left total hip arthroplasty POD #1 2. Continue Pain Medications: Tylenol and OxyIR 3. DVT Prophylaxis: Xarelto 4. PT/OT: Weightbearing as tolerated 5. H & H: 9.5/28.7, asymptomatic 6. Encouraged Incentive Spirometry 7. Continue postoperative medical management per medicine 8. Disposition: Plan will be for discharge to custodial facility when medically stable. Case management on board helping with placement.
[2017-07-22] MEDS: 0.9% NaCl Peripheral Flush Adult/Peds IV (08:20)
[2017-07-22 09:00] VITALS: BP 101/50; PULSE 76; RESP 18; TEMP 37.5; O2SAT 95
[2017-07-22] MEDS: oxyCODONE 5 MG Tablet PO ×2 (09:06→14:16)
[2017-07-22] MEDS: Famotidine 20 MG Tablet PO (09:07)
[2017-07-22] MEDS: Pantoprazole Sodium 40 MG Tablet PO (09:07)
[2017-07-22] MEDS: Magnesium Oxide 400 MG Tablet PO (09:07)
[2017-07-22] MEDS: Aspirin 81 MG TAB.CHEW PO (09:07)
[2017-07-22] MEDS: Senna/Docusate Sodium 1 Tablet 2 TABLET PO ×2 (09:07→21:16)
--- NOTE | 2017-07-22 09:39 | PCM.PN.HOSP ---
Subjective: Patient is an 82-year-old lady who underwent elective left total hip replacement on 07/21/2017 on account of severe osteoarthritis involving the left hip. The hospitalist service was consulted to manage patient medical comorbidities including hypertension 07/22/2017: Patient seen blood pressure relatively low has scheduled antihypertensive medications subsequently held Objective: GENERAL: cooperative HEENT: Clear conjunctiva, NECK; supple, normal thyroid, CHEST: Diminished to auscultation bilaterally, HEART: Regular S1 S2, no audible murmurs ABDOMEN: soft, non-tender, normoactive bowel sounds, RECTAL: deferred EXTREMITIES: No edema, no clubbing, no cyanosis. 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 SKIN: No Rash Vitals/I&O's: Vital Signs Temp Pulse Resp BP Pulse Ox 99.0 F 85 22 H 111/51 L 98 07/22/17 02:59 07/22/17 02:59 07/22/17 02:59 07/22/17 02:59 07/22/17 02:59 Oxygen Flow Rate (L/min) 2 Oxygen Delivery Method Nasal Cannula Weight: 79.6 kg Body Mass Index (BMI) 32.1 Finger Stick Blood Glucose 156 Intake and Output for Last 24 Hours 07/20/17 07/21/17 07/22/17 23:59 23:59 23:59 Intake Total 2892 / 2892 689 / 689 Balance 2892 / 2892 689 / 689 Laboratory Results 07/22/17 05:12: WBC 5.8, RBC 2.85 L, Hgb 9.5 L, Hct 28.7 L, MCV 100.7 H, MCH 33.3 H, MCHC 33.1, RDW 12.1, RDW Differential 43.5, Plt Count 96 L, MPV 11.4 07/22/17 05:12: Sodium 142, Potassium 3.1 L, Chloride 108 H, Carbon Dioxide 26.0, Anion Gap 8, BUN 12, Creatinine 0.60, Estim Creat Clear Calc 35.49, Est GFR (MDRD) Af Amer 123, Est GFR (MDRD) Non-Af 102, BUN/Creatinine Ratio 19.9, Glucose 96, Calcium 8.0 L Current Medications Acetaminophen (Tylenol) 1,000 mg PO Q8 [facility] Last Admin: 07/22/17 06:20 Dose: 1,000 mg Amlodipine Besylate (Norvasc) 5 mg PO DAILY [facility] Last Admin: 07/22/17 09:23 Dose: Not Given Aspirin (Aspirin, Baby) 81 mg PO DAILY@0800 [facility] Last Admin: 07/22/17 09:07 Dose: 81 mg Atorvastatin Calcium (Lipitor) 20 mg PO QHS [facility] Last Admin: 07/21/17 23:24 Dose: 20 mg Carvedilol (Coreg) 25 mg PO BID [facility] Last Admin: 07/22/17 09:02 Dose: Not Given Cholecalciferol (Vitamin D) 1,000 unit PO DAILY [facility] Last Admin: 07/22/17 09:07 Dose: 1,000 unit Famotidine (Pepcid) 20 mg PO DAILY [facility] Last Admin: 07/22/17 09:07 Dose: 20 mg Furosemide (Lasix) 40 mg PO DAILY [facility] Last Admin: 07/22/17 09:22 Dose: Not Given Gabapentin (Neurontin) 200 mg PO QHS [facility] Last Admin: 07/21/17 23:24 Dose: 200 mg Gabapentin (Neurontin) 100 mg PO LUNCH [facility] Ketorolac Tromethamine (Toradol) 15 mg IV Q6H PRN PRN PRN Reason: MILD-MOD PAIN (1-5/10) Lisinopril (Zestril) 40 mg PO DAILY [facility] Last Admin: 07/22/17 09:23 Dose: Not Given Magnesium Oxide (Mag-Ox 400) 400 mg PO DAILY [facility] Last Admin: 07/22/17 09:07 Dose: 400 mg Melatonin (Melatonin) 3 mg PO QHS PRN PRN Reason: SLEEP Morphine Sulfate (Morphine) 2 - 4 mg IV Q2H PRN PRN PRN Reason: SEVERE PAIN (6-10/10) Morphine Sulfate (Morphine) 2 - 4 mg IV Q2H PRN PRN PRN Reason: SEVERE PAIN (6-10/10) Nitroglycerin (Nitrostat) 0.4 mg SUBLINGUAL Q5M PRN PRN Reason: Chest Pain Nutritional Formula (Lactose Free) (Ensure Enlive) 120 ml PO TIDCM [facility] Last Admin: 07/22/17 09:15 Dose: 120 ml Ondansetron HCl (Zofran) 4 mg IV Q8H PRN PRN PRN Reason: NAUSEA Oxycodone HCl (Oxyir) 5 - 10 mg PO Q4H PRN PRN PRN Reason: MOD-SEVERE PAIN (4-10/10) Last Admin: 07/22/17 09:06 Dose: 10 mg Pantoprazole Sodium (Protonix) 40 mg PO DAILY [facility] Last Admin: 07/22/17 09:07 Dose: 40 mg Promethazine HCl (Phenergan (Ll)) 12.5 mg IM Q6H PRN PRN; Protocol PRN Reason: NAUSEA/VOMITING Rivaroxaban (Xarelto) 10 mg PO DAILY@0600 [facility] Last Admin: 07/22/17 06:20 Dose: 10 mg Senna/Docusate Sodium (Senokot-S, Dilia-Colace) 2 tablet PO BID [facility] Last Admin: 07/22/17 09:07 Dose: 2 tablet Sodium Chloride () 5 - 30 ml IV UD PRN PRN Reason: SALINE FLUSH Last Admin: 07/22/17 08:20 Dose: 10 ml Assessment/Plan Patient is an 82-year-old lady who underwent elective left total hip replacement on 07/21/2017 on account of severe osteoarthritis involving the left hip. The hospitalist service was consulted to manage patient medical comorbidities including hypertension 1. Status post elective left total hip replacement on 07/21/2017 on account of severe osteoarthritis involving the left hip. The hospitalist service was consulted to manage patient medical comorbidities including hypertension and postoperative orders regarding pain management DVT prophylaxis and PT OT addressed by primary service 2. Hypertension patient blood pressure medications on hold on the morning of 07/22/2017 as a result of patient being relatively hypotensive 3. CAD with previous CABG 4. Ischemic cardiomyopathy status post biventricular ICD echo obtained in July 2016 demonstrated EF of 55%. Patient is on optimal medical treatment 5. Paroxysmal A. fib rate controlled 6. Conduction system disorder status post pacemaker placement 7. Status post aortic valve replacement with bioprosthetic valve 8. Dyslipidemia-patient is on statin therapy, continued at home dose 9. Secondary to acute blood loss anemia following surgery monitoring H&H with plans to transfuse if hemoglobin falls below 7 or patient becomes symptomatic 10. DVT Prophylaxis p.o. Xarelto Code Visit Inpatient E&M: [id number] [place] [id number]
--- NOTE | 2017-07-22 09:44 | PN_ITS ---
Subjective: Patient is an 82-year-old lady who underwent elective left total hip replacement on 07/21/2017 on account of severe osteoarthritis involving the left hip. The hospitalist service was consulted to manage patient medical comorbidities including hypertension 07/22/2017: Patient seen blood pressure relatively low has scheduled antihypertensive medications subsequently held Objective: GENERAL: cooperative HEENT: Clear conjunctiva, NECK; supple, normal thyroid, CHEST: Diminished to auscultation bilaterally, HEART: Regular S1 S2, no audible murmurs ABDOMEN: soft, non-tender, normoactive bowel sounds, RECTAL: deferred EXTREMITIES: No edema, no clubbing, no cyanosis. CARE MANAGER: Awake, no lateralizing signs. SKIN: No Rash Vitals/I&O's: Vital Signs Temp Pulse Resp BP Pulse Ox 99.0 F 85 22 H 111/51 L 98 07/22/17 02:59 07/22/17 02:59 07/22/17 02:59 07/22/17 02:59 07/22/17 02:59 Oxygen Flow Rate (L/min) 2 Oxygen Delivery Method Nasal Cannula Weight: 79.6 kg Body Mass Index (BMI) 32.1 Finger Stick Blood Glucose 156 Intake and Output for Last 24 Hours 07/20/17 07/21/17 07/22/17 23:59 23:59 23:59 Intake Total 2892 / 2892 689 / 689 Balance 2892 / 2892 689 / 689 Laboratory Results 07/22/17 05:12: WBC 5.8, RBC 2.85 L, Hgb 9.5 L, Hct 28.7 L, MCV 100.7 H, MCH 33.3 H, MCHC 33.1, RDW 12.1, RDW Differential 43.5, Plt Count 96 L, MPV 11.4 07/22/17 05:12: Sodium 142, Potassium 3.1 L, Chloride 108 H, Carbon Dioxide 26.0 , Anion Gap 8, BUN 12, Creatinine 0.60, Estim Creat Clear Calc 35.49, Est GFR ( MDRD) Af Amer 123, Est GFR (MDRD) Non-Af 102, BUN/Creatinine Ratio 19.9, Glucose 96, Calcium 8.0 L Current Medications Acetaminophen (Tylenol) 1,000 mg PO Q8 [facility] Last Admin: 07/22/17 06:20 Dose: 1,000 mg Amlodipine Besylate (Norvasc) 5 mg PO DAILY [facility] Last Admin: 07/22/17 09:23 Dose: Not Given Aspirin (Aspirin, Baby) 81 mg PO DAILY@0800 [facility] Last Admin: 07/22/17 09:07 Dose: 81 mg Atorvastatin Calcium (Lipitor) 20 mg PO QHS [facility] Last Admin: 07/21/17 23:24 Dose: 20 mg Carvedilol (Coreg) 25 mg PO BID [facility] Last Admin: 07/22/17 09:02 Dose: Not Given Cholecalciferol (Vitamin D) 1,000 unit PO DAILY [facility] Last Admin: 07/22/17 09:07 Dose: 1,000 unit Famotidine (Pepcid) 20 mg PO DAILY [facility] Last Admin: 07/22/17 09:07 Dose: 20 mg Furosemide (Lasix) 40 mg PO DAILY [facility] Last Admin: 07/22/17 09:22 Dose: Not Given Gabapentin (Neurontin) 200 mg PO QHS [facility] Last Admin: 07/21/17 23:24 Dose: 200 mg Gabapentin (Neurontin) 100 mg PO LUNCH [facility] Ketorolac Tromethamine (Toradol) 15 mg IV Q6H PRN PRN PRN Reason: MILD-MOD PAIN (1-5/10) Lisinopril (Zestril) 40 mg PO DAILY [facility] Last Admin: 07/22/17 09:23 Dose: Not Given Magnesium Oxide (Mag-Ox 400) 400 mg PO DAILY [facility] Last Admin: 07/22/17 09:07 Dose: 400 mg Melatonin (Melatonin) 3 mg PO QHS PRN PRN Reason: SLEEP Morphine Sulfate (Morphine) 2 - 4 mg IV Q2H PRN PRN PRN Reason: SEVERE PAIN (6-10/10) Morphine Sulfate (Morphine) 2 - 4 mg IV Q2H PRN PRN PRN Reason: SEVERE PAIN (6-10/10) Nitroglycerin (Nitrostat) 0.4 mg SUBLINGUAL Q5M PRN PRN Reason: Chest Pain Nutritional Formula (Lactose Free) (Ensure Enlive) 120 ml PO TIDCM [facility] Last Admin: 07/22/17 09:15 Dose: 120 ml Ondansetron HCl (Zofran) 4 mg IV Q8H PRN PRN PRN Reason: NAUSEA Oxycodone HCl (Oxyir) 5 - 10 mg PO Q4H PRN PRN PRN Reason: MOD-SEVERE PAIN (4-10/10) Last Admin: 07/22/17 09:06 Dose: 10 mg Pantoprazole Sodium (Protonix) 40 mg PO DAILY [facility] Last Admin: 07/22/17 09:07 Dose: 40 mg Promethazine HCl (Phenergan (Ll)) 12.5 mg IM Q6H PRN PRN; Protocol PRN Reason: NAUSEA/VOMITING Rivaroxaban (Xarelto) 10 mg PO DAILY@0600 [facility] Last Admin: 07/22/17 06:20 Dose: 10 mg Senna/Docusate Sodium (Senokot-S, Dilia-Colace) 2 tablet PO BID [facility] Last Admin: 07/22/17 09:07 Dose: 2 tablet Sodium Chloride () 5 - 30 ml IV UD PRN PRN Reason: SALINE FLUSH Last Admin: 07/22/17 08:20 Dose: 10 ml Assessment/Plan Patient is an 82-year-old lady who underwent elective left total hip replacement on 07/21/2017 on account of severe osteoarthritis involving the left hip. The hospitalist service was consulted to manage patient medical comorbidities including hypertension 1. Status post elective left total hip replacement on 07/21/2017 on account of severe osteoarthritis involving the left hip. The hospitalist service was consulted to manage patient medical comorbidities including hypertension and postoperative orders regarding pain management DVT prophylaxis and PT OT addressed by primary service 2. Hypertension patient blood pressure medications on hold on the morning of as a result of patient being relatively hypotensive 3. CAD with previous CABG 4. Ischemic cardiomyopathy status post biventricular ICD echo obtained in July 2016 demonstrated EF of 55%. Patient is on optimal medical treatment 5. Paroxysmal A. fib rate controlled 6. Conduction system disorder status post pacemaker placement 7. Status post aortic valve replacement with bioprosthetic valve 8. Dyslipidemia-patient is on statin therapy, continued at home dose 9. Secondary to acute blood loss anemia following surgery monitoring H&H with plans to transfuse if hemoglobin falls below 7 or patient becomes symptomatic 10. DVT Prophylaxis p.o. Xarelto Code Visit Inpatient E&M: [id number] [place] [id number]
--- NOTE | 2017-07-22 11:05 | CASEMGMT ---
Social Work Met with pt in room and introduced role of SW. Pt lives [place] and has been independent with ADLs and IADLs. Pt does not drive but does have three local daughters who are supportive and assist with transportation as needed. Pt has a walker, cane, shower chair and 3 in 1 commode. SW verified demographics and pcp. Pt also sees Dr. Bella and uses [facility]. Pt states she does have a living will and a health care POA which names her daughters Noemy and Teresa but documents are not on file. Pt does not feel she can return home upon d/c and would benefit from rehab at a SNF. Pt would prefer [facility] as she has been there twice before. Pt states she has also had home health services in the past but does not recall which agency was used. Referral faxed to Zulema at [facility]. Will await determination. FREDA Pantoja
[2017-07-22] MEDS: Gabapentin 100 MG Capsule PO (11:48)
[2017-07-22 14:15] VITALS: BP 110/70; PULSE 77; RESP 16; TEMP 37.6; O2SAT 97
--- NOTE | 2017-07-22 14:32 | CASEMGMT ---
Social Work Return call from Zulema at [facility] and they are able to accept pt on Thursday. SW met with pt and informed that she can go to [facility] upon d/c. Offered to call dgt and inform of d/c plan. Pt denied stating she will inform her dgt later today. SW informed pt that HCPOA and LW are not in EMR and requested pt ask family to bring documents into [facility] for scanning. Pt agreeable. Plan: [facility], Thursday FREDA Pantoja
--- NOTE | 2017-07-22 16:05 | CHAPLAIN ---
Type of Pastoral Visit _x__ Initial Visit ___ Follow-up Visit ___ On-call Visit ___ General Patient Visit ___ Spiritual Assessment ___ Family Conference ___ Bereavement ___ Rapid Response ___ Code Blue ___ Other (describe below) Pastoral Care Referral From _x__ Patient ___ Family ___ Nurse ___ Physician ___ Commercial Energy Rater ___ Photolithographic Stripper ___ Other (describe below) Sacrament/Intervention _x__ Active listening ___ Anointing ___ Amish ___ Bereavement ___ Communion ___ Yaneth exploration ___ ___ Life review _x__ Prayer ___ Reconciliation ___ Sacrament of Sick ___ Supportive presence ___ Wedding ___ Other (describe below) Pastoral Comments
[2017-07-22 20:15] VITALS: BP 113/78; PULSE 79; RESP 16; TEMP 37.6; O2SAT 95
[2017-07-22] MEDS: Gabapentin 100 MG Capsule 200 MG PO (21:16)
[2017-07-22] MEDS: Carvedilol 25 MG Tablet PO (21:16)
[2017-07-22] MEDS: Atorvastatin Calcium 20 MG Tablet PO (21:16)
[2017-07-23 02:45] VITALS: BP 123/42; PULSE 80; RESP 16; TEMP 37.4; O2SAT 94
[2017-07-23] MEDS: Acetaminophen 500 MG Tablet 1000 MG PO ×3 (05:27→20:40)
[2017-07-23] MEDS: Rivaroxaban 10 MG Tablet PO (05:27)
[2017-07-23 06:38] LABS: Hematocrit 28.7 % (37-47); Hemoglobin 9.5 g/dl (12.0-15.0); Mean Corp Hgb Conc 33.1 g/gl (32-36); Mean Corpuscular Hgb 33.3 pg (27.0-32.0); Mean Corpuscular Volume 100.7 fL (81-99); Mean Platelet Vol. 11.7 fl (6.2-12.0); Platelet Count 90 K/mm3 (150-450); RBC Distribution Width SD 43.1 fl (35.1-43.9); Red Blood Count 2.85 M/mm3 (4.2-5.4); White Blood Count 6.8 K/mm3 (4.4-11.0)
[2017-07-23 06:42] LABS: Scan Indicated on CBC? Y/N NO
[2017-07-23 09:19] VITALS: BP 117/65; PULSE 80; RESP 20; TEMP 36.8; O2SAT 94
[2017-07-23] MEDS: Aspirin 81 MG TAB.CHEW PO (09:21)
[2017-07-23] MEDS: Carvedilol 25 MG Tablet PO ×2 (09:22→20:40)
[2017-07-23] MEDS: Furosemide 40 MG Tablet PO (09:22)
[2017-07-23] MEDS: Magnesium Oxide 400 MG Tablet PO (09:22)
[2017-07-23] MEDS: Senna/Docusate Sodium 1 Tablet 2 TABLET PO ×2 (09:23→20:39)
[2017-07-23] MEDS: amLODIPine 5 MG Tablet PO (09:23)
[2017-07-23] MEDS: Pantoprazole Sodium 40 MG Tablet PO (09:23)
[2017-07-23] MEDS: Famotidine 20 MG Tablet PO (09:23)
[2017-07-23] MEDS: Gabapentin 100 MG Capsule PO (09:24)
[2017-07-23 09:35] VITALS: PULSE 84
--- NOTE | 2017-07-23 10:53 | PN_ITS ---
Subjective: Seen has tolerated physical therapy well. Pain is under control. Patient denies any shortness of breath no chest pain no nausea no vomiting. Had a relatively uneventful night. Objective: GENERAL: cooperative HEENT: Clear conjunctiva, NECK; supple, normal thyroid, CHEST: Diminished to auscultation bilaterally, HEART: Regular S1 S2, no audible murmurs ABDOMEN: soft, non-tender, normoactive bowel sounds, RECTAL: deferred EXTREMITIES: No edema, no clubbing, no cyanosis. DIGITAL DESIGN ENGINEER: Awake, no lateralizing signs. SKIN: No Rash Vitals/I&O's: Vital Signs Temp Pulse Resp BP Pulse Ox 98.2 F 84 20 H 117/65 94 07/23/17 09:19 07/23/17 09:35 07/23/17 09:19 07/23/17 09:19 07/23/17 09:19 Oxygen Flow Rate (L/min) 2 Oxygen Delivery Method Room Air Weight: 79.6 kg Body Mass Index (BMI) 32.1 Finger Stick Blood Glucose 156 Intake and Output for Last 24 Hours 07/21/17 07/22/17 07/23/17 23:59 23:59 23:59 Intake Total 2892 / 2892 1189 / 1189 400 / 400 Output Total 50 / 50 Balance 2892 / 2892 1139 / 1139 400 / 400 Laboratory Results 07/23/17 06:24: WBC 6.8, RBC 2.85 L, Hgb 9.5 L, Hct 28.7 L, MCV 100.7 H, MCH 33.3 H, MCHC 33.1, RDW 12.0, RDW Differential 43.1, Plt Count 90 L, MPV 11.7 Current Medications Acetaminophen (Tylenol) 1,000 mg PO Q8 [facility] Last Admin: 07/23/17 05:27 Dose: 1,000 mg Amlodipine Besylate (Norvasc) 5 mg PO DAILY [facility] Last Admin: 07/23/17 09:23 Dose: 5 mg Aspirin (Aspirin, Baby) 81 mg PO DAILY@0800 [facility] Last Admin: 07/23/17 09:21 Dose: 81 mg Atorvastatin Calcium (Lipitor) 20 mg PO QHS [facility] Last Admin: 07/22/17 21:16 Dose: 20 mg Carvedilol (Coreg) 25 mg PO BID [facility] Last Admin: 07/23/17 09:22 Dose: 25 mg Cholecalciferol (Vitamin D) 1,000 unit PO DAILY [facility] Last Admin: 07/23/17 09:23 Dose: 1,000 unit Famotidine (Pepcid) 20 mg PO DAILY [facility] Last Admin: 07/23/17 09:23 Dose: 20 mg Furosemide (Lasix) 40 mg PO DAILY [facility] Last Admin: 07/23/17 09:22 Dose: 40 mg Gabapentin (Neurontin) 200 mg PO QHS [facility] Last Admin: 07/22/17 21:16 Dose: 200 mg Gabapentin (Neurontin) 100 mg PO LUNCH [facility] Last Admin: 07/23/17 09:24 Dose: 100 mg Ketorolac Tromethamine (Toradol) 15 mg IV Q6H PRN PRN PRN Reason: MILD-MOD PAIN (1-5/10) Lisinopril (Zestril) 40 mg PO DAILY [facility] Last Admin: 07/23/17 09:24 Dose: Not Given Magnesium Oxide (Mag-Ox 400) 400 mg PO DAILY [facility] Last Admin: 07/23/17 09:22 Dose: 400 mg Melatonin (Melatonin) 3 mg PO QHS PRN PRN Reason: SLEEP Morphine Sulfate (Morphine) 2 - 4 mg IV Q2H PRN PRN PRN Reason: SEVERE PAIN (6-10/10) Morphine Sulfate (Morphine) 2 - 4 mg IV Q2H PRN PRN PRN Reason: SEVERE PAIN (6-10/10) Nitroglycerin (Nitrostat) 0.4 mg SUBLINGUAL Q5M PRN PRN Reason: Chest Pain Nutritional Formula (Lactose Free) (Ensure Enlive) 120 ml PO TIDCM [facility] Last Admin: 07/23/17 09:21 Dose: Not Given Ondansetron HCl (Zofran) 4 mg IV Q8H PRN PRN PRN Reason: NAUSEA Oxycodone HCl (Oxyir) 5 - 10 mg PO Q4H PRN PRN PRN Reason: MOD-SEVERE PAIN (4-10/10) Last Admin: 07/22/17 14:16 Dose: 10 mg Pantoprazole Sodium (Protonix) 40 mg PO DAILY [facility] Last Admin: 07/23/17 09:23 Dose: 40 mg Promethazine HCl (Phenergan (Ll)) 12.5 mg IM Q6H PRN PRN; Protocol PRN Reason: NAUSEA/VOMITING Rivaroxaban (Xarelto) 10 mg PO DAILY@0600 [facility] Last Admin: 07/23/17 05:27 Dose: 10 mg Senna/Docusate Sodium (Senokot-S, Dilia-Colace) 2 tablet PO BID [facility] Last Admin: 07/23/17 09:23 Dose: 2 tablet Sodium Chloride () 5 - 30 ml IV UD PRN PRN Reason: SALINE FLUSH Last Admin: 07/22/17 08:20 Dose: 10 ml Assessment/Plan Patient is an 82-year-old lady who underwent elective left total hip replacement on 07/21/2017 on account of severe osteoarthritis involving the left hip. The hospitalist service was consulted to manage patient medical comorbidities including hypertension 1. Status post elective left total hip replacement on 07/21/2017 on account of severe osteoarthritis involving the left hip. The hospitalist service was consulted to manage patient medical comorbidities including hypertension and postoperative orders regarding pain management DVT prophylaxis and PT OT addressed by primary service 2. Hypertension patient blood pressure medications on hold on the morning of as a result of patient being relatively hypotensive 3. CAD with previous CABG 4. Ischemic cardiomyopathy status post biventricular ICD echo obtained in July 2016 demonstrated EF of 55%. Patient is on optimal medical treatment 5. Paroxysmal A. fib rate controlled 6. Conduction system disorder status post pacemaker placement 7. Status post aortic valve replacement with bioprosthetic valve 8. Dyslipidemia-patient is on statin therapy, continued at home dose 9. Anemia secondary to acute blood loss anemia following surgery monitoring H& H with plans to transfuse if hemoglobin falls below 7 or patient becomes symptomatic 10. DVT Prophylaxis p.o. Xarelto Code Visit Inpatient E&M: 44207 Subs Hosp L2
--- NOTE | 2017-07-23 12:57 | PN.ORTHO_ITS ---
Subjective: The patient was sitting in bedside chair upon examination. Patient denies any chest pain, shortness of breath, dizziness, lightheadedness, nausea or vomiting , or calf pain. Pain is controlled on medications. No adverse overnight events. Overall patient is doing well. The plan is for patient to go to [facility] tomorrow. Objective: Vital signs stable and afebrile. Patient is able to plantarflex and dorsiflex actively. Sensation is intact to light touch to saphenous, sural, superficial and deep peroneal, and tibial distribution. Dressing is clean dry and intact. Negative Homans bilaterally, negative signs and symptoms of DVT. - Physical Exam General: Alert, Oriented x3, Cooperative, No apparent distress Vital Signs Temp Pulse Resp BP Pulse Ox 98.2 F 84 20 H 117/65 94 07/23/17 09:19 07/23/17 09:35 07/23/17 09:19 07/23/17 09:19 07/23/17 09:19 Oxygen Flow Rate (L/min) 2 Oxygen Delivery Method Room Air Weight: 79.6 kg Body Mass Index (BMI) 32.1 Finger Stick Blood Glucose 156 Intake and Output for Last 24 Hours 07/21/17//18 07/23/17 23:59 23:59 23:59 Intake Total 2892 / 2892 1189 / 1189 400 / 400 Output Total 50 / 50 Balance 2892 / 2892 1139 / 1139 400 / 400 Laboratory Tests Past 24 Hrs 07/23/17 06:24 WBC 6.8 RBC 2.85 L Hgb 9.5 L Hct 28.7 L MCV 100.7 H MCH 33.3 H MCHC 33.1 RDW 12.0 RDW Differential 43.1 Plt Count 90 L MPV 11.7 Assessment/Plan 1. S/P left total hip arthroplasty POD #2 2. Continue Pain Medications: Tylenol and OxyIR 3. DVT Prophylaxis: Xarelto 4. PT/OT: Weightbearing as tolerated 5. H & H: 8.5/28.7, asymptomatic 6. Encouraged Incentive Spirometry 7. Continue postoperative medical management per medicine 8. Disposition: Plan will be for discharge to senior care facility when medically stable. Case management on board helping with placement. Patient per insurance is able to go to [facility] tomorrow.
--- NOTE | 2017-07-23 12:58 | PCM.DC.THR ---
Discharge Diet: No Restrictions Discharge Activity: May Not Drive - while taking narcotic pain medications. May shower in (days): 1 - Okay to shower, turned dressing away from water Ice area for (Minutes): 20 Weight Bearing Status: Weight bearing as tolerated Additional Activity Instructions:: Wear elastic stockings for 2 weeks. DO NOT use alcohol with narcotic pain medication. DO NOT make important decisions while taking narcotic medication. If you have problems with taking your medication (rash, itching, nausea, etc.) call the office at once. Call your doctor if your incision/area has: Increased Pain/ Swelling, Increased Redness, Foul Smelling Discharge Call your doctor if you observe: Fever of 101 or Higher Remove Dressing in (days):: 2 - Okay to remove dressing on July 26, 2017 Additional Instructions: Follow [facility] postop instructions Patient has tolerated oxycodone in the hospital even though she lists allergy with Percocet. Allergies/Adverse Reactions: Allergies adhesive Allergy (Verified 07/06/17 14:37) Unknown donepezil [Donepezil] Allergy (Verified 07/06/17 14:37) Unknown nitroglycerin Allergy (Verified 07/06/17 14:37) Unknown oxycodone HCl [From Percocet] Allergy (Verified 07/06/17 14:37) Unknown phenobarbital Allergy (Verified 07/06/17 14:37) Unknown tolmetin sodium [From Tolectin] Allergy (Verified 07/06/17 14:37) Unknown venlafaxine Allergy (Verified 07/06/17 14:37) Unknown nitropatch Allergy (Uncoded 07/06/17 14:37) unknown Medications to take at Discharge Aspirin [Aspirin, Baby] 81 mg PO DAILY@0800 04/09/13 Quinapril HCl [Accupril] 40 mg PO DAILY 07/01/13 Magnesium Oxide [Mag-Ox 400] 400 mg PO DAILY 09/17/15 Nitroglycerin [Nitrostat] 0.4 mg SUBLINGUAL Q5M PRN 09/20/15 coenzyme Q10 200 mg capsule 200 mg PO DAILY 05/05/17 gabapentin 100 mg capsule 200 mg PO BID 05/05/17 esomeprazole magnesium 40 mg capsule,delayed release 40 mg PO DAILY cap 05/07/17 melatonin 3 mg tablet 3 mg PO HS PRN 05/07/17 amlodipine 5 mg tablet 5 mg PO DAILY 06/23/17 atorvastatin 40 mg tablet 20 mg PO QHS tab 06/23/17 furosemide 40 mg tablet 40 mg PO DAILY 06/23/17 Carvedilol [Coreg (Beta Gene)] 25 mg PO BID 07/06/17 Cholecalciferol (Vitamin D3) [Vitamin D3] 1,000 unit PO DAILY 07/06/17 Acetaminophen [Tylenol] 1,000 mg PO Q8 14 Days #90 tab 07/24/17 Oxycodone [Oxyir] 5 - 10 mg PO Q4H PRN PRN 7 Days #80 tab 07/24/17 Rivaroxaban [Xarelto] 10 mg PO DAILY@0600 #10 tab 07/24/17 Senna/Docusate Sodium [Senokot-S] 2 tab PO BID #20 tab 07/24/17 The following prescriptions were given: Oxycodone [Oxyir] 5 - 10 mg PO Q4H PRN PRN 7 Days #80 tab PRN Reason: Mod-Severe Pain (-02/17) Acetaminophen [Tylenol] 1,000 mg PO Q8 14 Days #90 tab Rivaroxaban [Xarelto] 10 mg PO DAILY@0600 #10 tab Senna/Docusate Sodium [Senokot-S] 2 tab PO BID #20 tab Primary Care Physician: Bijan Austin MD [Primary Care Provider] - Please Follow Up With: Akbar Williamson PA-C When: 08/03/17 @ 1:30 pm
[2017-07-23] MEDS: oxyCODONE 5 MG Tablet PO (13:48)
[2017-07-23 15:20] VITALS: BP 124/61; PULSE 86; RESP 18; TEMP 36.7; O2SAT 96
[2017-07-23] MEDS: Gabapentin 100 MG Capsule 200 MG PO (20:39)
[2017-07-23] MEDS: Atorvastatin Calcium 20 MG Tablet PO (20:40)
[2017-07-23 20:42] VITALS: BP 134/53; PULSE 77; RESP 18; TEMP 36.8; O2SAT 95
[2017-07-24 03:00] VITALS: BP 117/57; PULSE 73; RESP 16; TEMP 36.7; O2SAT 96
[2017-07-24] MEDS: Acetaminophen 500 MG Tablet 1000 MG PO (06:18)
[2017-07-24] MEDS: Rivaroxaban 10 MG Tablet PO (06:18)
--- NOTE | 2017-07-24 06:45 | PCM.PN.ORT ---
Subjective: Patient doing well, stable medically. Plan is for [facility]/TCU at the hospital here. Patient is done well with her therapy and progressed nicely. Hip pain is well controlled. No chest pain or shortness of breath. No calf pain reported. Objective: Postoperative left hip x-ray shows well-placed total hip replacement on the left. - Physical Exam General: Alert, Oriented x3, Cooperative Extremities: - - Left lower extremity: Dressing is clean dry and intact, ecchymosis around incision site sensations intact to light touch saphenous, sural, superficial peroneal, deep peroneal, and tibial distributions Motors intact EHL, DF, PF calves are soft and supple Vital Signs Temp Pulse Resp BP Pulse Ox 98.1 F 73 16 117/57 L 96 07/24/17 03:00 07/24/17 03:00 07/24/17 03:00 07/24/17 03:00 07/24/17 03:00 Oxygen Flow Rate (L/min) 2 Oxygen Delivery Method Room Air Weight: 175 lb 7.807 oz Body Mass Index (BMI) 32.1 Finger Stick Blood Glucose 156 Intake and Output for Last 24 Hours 07/22/17 07/23/17 07/24/17 23:59 23:59 23:59 Intake Total 1189 / 1189 400 / 400 Output Total 50 / 50 Balance 1139 / 1139 400 / 400 Assessment/Plan Postop day 3 left direct anterior total hip replacement 1. DVT prophylaxis: Xarelto for 2 weeks, followed by aspirin 2. Pain control: Left hip pain under control continue current regimen 3. Physical therapy: Weight-bear as tolerated activity as tolerated 4. Disposition: Discharge to transitional care unit here at the hospital today. [facility] Office:
--- NOTE | 2017-07-24 06:49 | PN.ORTHO_ITS ---
Subjective: Patient doing well, stable medically. Plan is for discharge to care home facility today/TCU at the hospital here. Patient is done well with her therapy and progressed nicely. Hip pain is well controlled. No chest pain or shortness of breath. No calf pain reported. Objective: Postoperative left hip x-ray shows well-placed total hip replacement on the left. - Physical Exam General: Alert, Oriented x3, Cooperative Extremities: - - Left lower extremity: Dressing is clean dry and intact, ecchymosis around incision site sensations intact to light touch saphenous, sural, superficial peroneal, deep peroneal, and tibial distributions Motors intact EHL, DF, PF calves are soft and supple Vital Signs Temp Pulse Resp BP Pulse Ox 98.1 F 73 16 117/57 L 96 07/24/17 03:00 07/24/17 03:00 07/24/17 03:00 07/24/17 03:00 07/24/17 03:00 Oxygen Flow Rate (L/min) 2 Oxygen Delivery Method Room Air Weight: 175 lb 7.807 oz Body Mass Index (BMI) 32.1 Finger Stick Blood Glucose 156 Intake and Output for Last 24 Hours 07/22/17 07/23/17 07/24/17 23:59 23:59 23:59 Intake Total 1189 / 1189 400 / 400 Output Total 50 / 50 Balance 1139 / 1139 400 / 400 Assessment/Plan Postop day 3 left direct anterior total hip replacement 1. DVT prophylaxis: Xarelto for 2 weeks, followed by aspirin 2. Pain control: Left hip pain under control continue current regimen 3. Physical therapy: Weight-bear as tolerated activity as tolerated 4. Disposition: Discharge to transitional care unit here at the hospital today. [facility] Office:
[2017-07-24 07:46] VITALS: BP 93/67; PULSE 67; RESP 18; TEMP 37.3; O2SAT 99
[2017-07-24 08:45] LABS: Hematocrit 28.9 % (37-47); Hemoglobin 9.5 g/dl (12.0-15.0); Mean Corp Hgb Conc 32.9 g/gl (32-36); Mean Corpuscular Hgb 33.1 pg (27.0-32.0); Mean Corpuscular Volume 100.7 fL (81-99); Mean Platelet Vol. 12.3 fl (6.2-12.0); Platelet Count 88 K/mm3 (150-450); RBC Distribution Width CV 11.9 % (11.6-14.6); RBC Distribution Width SD 42.6 fl (35.1-43.9); Red Blood Count 2.87 M/mm3 (4.2-5.4); White Blood Count 6.7 K/mm3 (4.4-11.0)
[2017-07-24 08:46] LABS: Scan Indicated on CBC? Y/N NO
[2017-07-24] MEDS: Carvedilol 25 MG Tablet PO (09:16)
[2017-07-24] MEDS: Lisinopril 40 MG Tablet PO (09:16)
[2017-07-24] MEDS: Furosemide 40 MG Tablet PO (09:16)
[2017-07-24] MEDS: Famotidine 20 MG Tablet PO (09:16)
[2017-07-24] MEDS: amLODIPine 5 MG Tablet PO (09:16)
[2017-07-24] MEDS: Pantoprazole Sodium 40 MG Tablet PO (09:16)
[2017-07-24] MEDS: Senna/Docusate Sodium 1 Tablet 2 TABLET PO (09:17)
[2017-07-24] MEDS: Magnesium Oxide 400 MG Tablet PO (09:17)
[2017-07-24 09:18] VITALS: BP 125/93; PULSE 75; RESP 20; TEMP 36.8; O2SAT 100
[2017-07-24] MEDS: Aspirin 81 MG TAB.CHEW PO (09:18)
--- NOTE | 2017-07-24 09:37 | PCM.PN.HOSP ---
Subjective: Patient seen plan is for patient to be transferred to [facility] for skilled therapy Objective: GENERAL: cooperative HEENT: Clear conjunctiva, NECK; supple, normal thyroid, CHEST: Diminished to auscultation bilaterally, HEART: Regular S1 S2, no audible murmurs ABDOMEN: soft, non-tender, normoactive bowel sounds, RECTAL: deferred EXTREMITIES: No edema, no clubbing, no cyanosis. WANIGAN CLERK: Awake, no lateralizing signs. SKIN: No Rash Vitals/I&O's: Vital Signs Temp Pulse Resp BP Pulse Ox 98.3 F 75 20 H 125/93 H 100 07/24/17 09:18 07/24/17 09:18 07/24/17 09:18 07/24/17 09:18 07/24/17 09:18 Oxygen Flow Rate (L/min) 2 Oxygen Delivery Method Room Air Weight: 79.6 kg Body Mass Index (BMI) 32.1 Finger Stick Blood Glucose 156 Intake and Output for Last 24 Hours 07/22/17 07/23/17 07/24/17 23:59 23:59 23:59 Intake Total 1189 / 1189 400 / 400 Output Total 50 / 50 Balance 1139 / 1139 400 / 400 Laboratory Results 07/24/17 08:10: WBC 6.7, RBC 2.87 L, Hgb 9.5 L, Hct 28.9 L, MCV 100.7 H, MCH 33.1 H, MCHC 32.9, RDW 11.9, RDW Differential 42.6, Plt Count 88 L, MPV 12.3 H Current Medications Acetaminophen (Tylenol) 1,000 mg PO Q8 [facility] Last Admin: 07/24/17 06:18 Dose: 1,000 mg Amlodipine Besylate (Norvasc) 5 mg PO DAILY [facility] Last Admin: 07/24/17 09:16 Dose: 5 mg Aspirin (Aspirin, Baby) 81 mg PO DAILY@0800 [facility] Last Admin: 07/24/17 09:18 Dose: 81 mg Atorvastatin Calcium (Lipitor) 20 mg PO QHS [facility] Last Admin: 07/23/17 20:40 Dose: 20 mg Carvedilol (Coreg) 25 mg PO BID [facility] Last Admin: 07/24/17 09:16 Dose: 25 mg Cholecalciferol (Vitamin D) 1,000 unit PO DAILY [facility] Last Admin: 07/24/17 09:17 Dose: 1,000 unit Famotidine (Pepcid) 20 mg PO DAILY [facility] Last Admin: 07/24/17 09:16 Dose: 20 mg Furosemide (Lasix) 40 mg PO DAILY [facility] Last Admin: 07/24/17 09:16 Dose: 40 mg Gabapentin (Neurontin) 200 mg PO QHS [facility] Last Admin: 07/23/17 20:39 Dose: 200 mg Gabapentin (Neurontin) 100 mg PO LUNCH [facility] Last Admin: 07/23/17 09:24 Dose: 100 mg Ketorolac Tromethamine (Toradol) 15 mg IV Q6H PRN PRN PRN Reason: MILD-MOD PAIN (1-5/10) Lisinopril (Zestril) 40 mg PO DAILY [facility] Last Admin: 07/24/17 09:16 Dose: 40 mg Magnesium Oxide (Mag-Ox 400) 400 mg PO DAILY [facility] Last Admin: 07/24/17 09:17 Dose: 400 mg Melatonin (Melatonin) 3 mg PO QHS PRN PRN Reason: SLEEP Morphine Sulfate (Morphine) 2 - 4 mg IV Q2H PRN PRN PRN Reason: SEVERE PAIN (6-10/10) Morphine Sulfate (Morphine) 2 - 4 mg IV Q2H PRN PRN PRN Reason: SEVERE PAIN (6-10/10) Nitroglycerin (Nitrostat) 0.4 mg SUBLINGUAL Q5M PRN PRN Reason: Chest Pain Nutritional Formula (Lactose Free) (Ensure Enlive) 120 ml PO TIDCM [facility] Last Admin: 07/24/17 09:17 Dose: 120 ml Ondansetron HCl (Zofran) 4 mg IV Q8H PRN PRN PRN Reason: NAUSEA Oxycodone HCl (Oxyir) 5 - 10 mg PO Q4H PRN PRN PRN Reason: MOD-SEVERE PAIN (4-10/10) Last Admin: 07/23/17 13:48 Dose: 5 mg Pantoprazole Sodium (Protonix) 40 mg PO DAILY [facility] Last Admin: 07/24/17 09:16 Dose: 40 mg Promethazine HCl (Phenergan (Ll)) 12.5 mg IM Q6H PRN PRN; Protocol PRN Reason: NAUSEA/VOMITING Rivaroxaban (Xarelto) 10 mg PO DAILY@0600 [facility] Last Admin: 07/24/17 06:18 Dose: 10 mg Senna/Docusate Sodium (Senokot-S, Dilia-Colace) 2 tablet PO BID [facility] Last Admin: 07/24/17 09:17 Dose: 2 tablet Sodium Chloride () 5 - 30 ml IV UD PRN PRN Reason: SALINE FLUSH Last Admin: 07/22/17 08:20 Dose: 10 ml Assessment/Plan Patient is an 82-year-old lady who underwent elective left total hip replacement on 07/21/2017 on account of severe osteoarthritis involving the left hip. The hospitalist service was consulted to manage patient medical comorbidities including hypertension 1. Status post elective left total hip replacement on 07/21/2017 on account of severe osteoarthritis involving the left hip. The hospitalist service was consulted to manage patient medical comorbidities including hypertension and postoperative orders regarding pain management DVT prophylaxis and PT OT addressed by primary service 2. Hypertension patient blood pressure medications on hold on the morning of 07/22/2017 as a result of patient being relatively hypotensive 3. CAD with previous CABG 4. Ischemic cardiomyopathy status post biventricular ICD echo obtained in July 2016 demonstrated EF of 55%. Patient is on optimal medical treatment 5. Paroxysmal A. fib rate controlled 6. Conduction system disorder status post pacemaker placement 7. Status post aortic valve replacement with bioprosthetic valve 8. Dyslipidemia-patient is on statin therapy, continued at home dose 9. Anemia secondary to acute blood loss anemia following surgery monitoring H&H with plans to transfuse if hemoglobin falls below 7 or patient becomes symptomatic 10. DVT Prophylaxis p.o. Xarelto Code Visit Inpatient E&M: 79264 Init Hosp L3
--- NOTE | 2017-07-24 09:40 | PN_ITS ---
Subjective: Patient seen plan is for patient to be transferred to [facility] for skilled therapy Objective: GENERAL: cooperative HEENT: Clear conjunctiva, NECK; supple, normal thyroid, CHEST: Diminished to auscultation bilaterally, HEART: Regular S1 S2, no audible murmurs ABDOMEN: soft, non-tender, normoactive bowel sounds, RECTAL: deferred EXTREMITIES: No edema, no clubbing, no cyanosis. PEDIATRIC NURSE PRACTITIONER: Awake, no lateralizing signs. SKIN: No Rash Vitals/I&O's: Vital Signs Temp Pulse Resp BP Pulse Ox 98.3 F 75 20 H 125/93 H 100 07/24/17 09:18 07/24/17 09:18 07/24/17 09:18 07/24/17 09:18 07/24/17 09:18 Oxygen Flow Rate (L/min) 2 Oxygen Delivery Method Room Air Weight: 79.6 kg Body Mass Index (BMI) 32.1 Finger Stick Blood Glucose 156 Intake and Output for Last 24 Hours 07/22/17 07/23/17 07/24/17 23:59 23:59 23:59 Intake Total 1189 / 1189 400 / 400 Output Total 50 / 50 Balance 1139 / 1139 400 / 400 Laboratory Results 07/24/17 08:10: WBC 6.7, RBC 2.87 L, Hgb 9.5 L, Hct 28.9 L, MCV 100.7 H, MCH 33.1 H, MCHC 32.9, RDW 11.9, RDW Differential 42.6, Plt Count 88 L, MPV 12.3 H Current Medications Acetaminophen (Tylenol) 1,000 mg PO Q8 [facility] Last Admin: 07/24/17 06:18 Dose: 1,000 mg Amlodipine Besylate (Norvasc) 5 mg PO DAILY [facility] Last Admin: 07/24/17 09:16 Dose: 5 mg Aspirin (Aspirin, Baby) 81 mg PO DAILY@0800 [facility] Last Admin: 07/24/17 09:18 Dose: 81 mg Atorvastatin Calcium (Lipitor) 20 mg PO QHS [facility] Last Admin: 07/23/17 20:40 Dose: 20 mg Carvedilol (Coreg) 25 mg PO BID [facility] Last Admin: 07/24/17 09:16 Dose: 25 mg Cholecalciferol (Vitamin D) 1,000 unit PO DAILY [facility] Last Admin: 07/24/17 09:17 Dose: 1,000 unit Famotidine (Pepcid) 20 mg PO DAILY [facility] Last Admin: 07/24/17 09:16 Dose: 20 mg Furosemide (Lasix) 40 mg PO DAILY [facility] Last Admin: 07/24/17 09:16 Dose: 40 mg Gabapentin (Neurontin) 200 mg PO QHS [facility] Last Admin: 07/23/17 20:39 Dose: 200 mg Gabapentin (Neurontin) 100 mg PO LUNCH [facility] Last Admin: 07/23/17 09:24 Dose: 100 mg Ketorolac Tromethamine (Toradol) 15 mg IV Q6H PRN PRN PRN Reason: MILD-MOD PAIN (1-5/10) Lisinopril (Zestril) 40 mg PO DAILY [facility] Last Admin: 07/24/17 09:16 Dose: 40 mg Magnesium Oxide (Mag-Ox 400) 400 mg PO DAILY [facility] Last Admin: 07/24/17 09:17 Dose: 400 mg Melatonin (Melatonin) 3 mg PO QHS PRN PRN Reason: SLEEP Morphine Sulfate (Morphine) 2 - 4 mg IV Q2H PRN PRN PRN Reason: SEVERE PAIN (6-10/10) Morphine Sulfate (Morphine) 2 - 4 mg IV Q2H PRN PRN PRN Reason: SEVERE PAIN (6-10/10) Nitroglycerin (Nitrostat) 0.4 mg SUBLINGUAL Q5M PRN PRN Reason: Chest Pain Nutritional Formula (Lactose Free) (Ensure Enlive) 120 ml PO TIDCM [facility] Last Admin: 07/24/17 09:17 Dose: 120 ml Ondansetron HCl (Zofran) 4 mg IV Q8H PRN PRN PRN Reason: NAUSEA Oxycodone HCl (Oxyir) 5 - 10 mg PO Q4H PRN PRN PRN Reason: MOD-SEVERE PAIN (4-10/10) Last Admin: 07/23/17 13:48 Dose: 5 mg Pantoprazole Sodium (Protonix) 40 mg PO DAILY [facility] Last Admin: 07/24/17 09:16 Dose: 40 mg Promethazine HCl (Phenergan (Ll)) 12.5 mg IM Q6H PRN PRN; Protocol PRN Reason: NAUSEA/VOMITING Rivaroxaban (Xarelto) 10 mg PO DAILY@0600 [facility] Last Admin: 07/24/17 06:18 Dose: 10 mg Senna/Docusate Sodium (Senokot-S, Dilia-Colace) 2 tablet PO BID [facility] Last Admin: 07/24/17 09:17 Dose: 2 tablet Sodium Chloride () 5 - 30 ml IV UD PRN PRN Reason: SALINE FLUSH Last Admin: 07/22/17 08:20 Dose: 10 ml Assessment/Plan Patient is an 82-year-old lady who underwent elective left total hip replacement on 07/21/2017 on account of severe osteoarthritis involving the left hip. The hospitalist service was consulted to manage patient medical comorbidities including hypertension 1. Status post elective left total hip replacement on 07/21/2017 on account of severe osteoarthritis involving the left hip. The hospitalist service was consulted to manage patient medical comorbidities including hypertension and postoperative orders regarding pain management DVT prophylaxis and PT OT addressed by primary service 2. Hypertension patient blood pressure medications on hold on the morning of as a result of patient being relatively hypotensive 3. CAD with previous CABG 4. Ischemic cardiomyopathy status post biventricular ICD echo obtained in July 2016 demonstrated EF of 55%. Patient is on optimal medical treatment 5. Paroxysmal A. fib rate controlled 6. Conduction system disorder status post pacemaker placement 7. Status post aortic valve replacement with bioprosthetic valve 8. Dyslipidemia-patient is on statin therapy, continued at home dose 9. Anemia secondary to acute blood loss anemia following surgery monitoring H& H with plans to transfuse if hemoglobin falls below 7 or patient becomes symptomatic 10. DVT Prophylaxis p.o. Xarelto Code Visit Inpatient E&M: 21127 Init Hosp L3
--- NOTE | 2017-07-24 09:41 | CASEMGMT ---
Patient is ready for d/c to [facility]. Faxed orders to [facility]. Faxed schedule II med to [facility]. SW completed [facility]valescent [facility] . [facility] crew patient at 11am via [employer]. SW spoke with patient and let her know she is ready for d/c today and she will be picked up at 11am. She is aware of the cost for the ambulette. She said she would notify her family. SW also notified Susannah at [facility] and patient's RN. Plan: d/c to [facility] under skilled level of care on a convalescent stay. [facility] transported via [email or web address]. Indy BOTELLO MSW
[2017-07-24 11:24] VITALS: BP 113/43; PULSE 79; RESP 18; O2SAT 100
--- NOTE | 2017-07-27 07:59 | PCM.DC.SUM ---
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) Hyperthyroidism (Chronic) Hypokalemia (Chronic) Atherosclerotic heart disease of [place] coronary artery without angina pectoris (Chronic) CABG x1 RANDLE-LAD x/Aortic Valve Replacement Left bundle-branch block (Chronic) Nonrheumatic aortic valve stenosis (Chronic) HTN (hypertension) (Chronic) Other chest pain (Chronic) Presence of aortocoronary bypass graft (Chronic) Dyspnea on exertion (Chronic) Fatigue (Chronic) Chronic pulmonary heart disease (Chronic) CVA (cerebral infarction) (Chronic) Hyperlipidemia (Chronic) Paroxysmal ventricular tachycardia (Chronic) HTN (hypertension) (Chronic) Hypothyroidism associated with surgical procedure (Chronic) had a subtotal thyroidectomy for goiter Hemorrhoids (Chronic) Restless leg syndrome (Chronic) TIA (transient ischemic attack) (Chronic) multiple Hospital Course and Treatment Summary of Care Provided: Patient is a 82-year-old female who has had ongoing left hip osteoarthritis. After failing conservative measures, the patient opted to proceed with a left total hip arthroplasty. The patient underwent the above-stated procedure on July 21, 2017. Patient did receive perioperative antibiotics. Intraoperatively was uneventful. For details please see dictated operative note. The patient was placed in thigh-high teds, bilateral SCDs, remained stable in recovery. Patient was admitted to the 3rd floor at [facility]. The patient's pain was managed with the use of IV and p.o. pain medications. Medicine was consulted due to patient's comorbidities for medical management. Patient participated in physical therapy. Patient was discharged on postoperative day #3 to [facility] long term facility. Patient was given medications stated below. Patient will follow up with [facility] per postop instructions for reassessment. Discharge Diet: No Restrictions Discharge Activity: May Not Drive - while taking narcotic pain medications. May shower in (days): 1 - Okay to shower, turned dressing away from water Ice area for (Minutes): 20 Weight Bearing Status: Weight bearing as tolerated Additional Activity Instructions:: Wear elastic stockings for 2 weeks. DO NOT use alcohol with narcotic pain medication. DO NOT make important decisions while taking narcotic medication. If you have problems with taking your medication (rash, itching, nausea, etc.) call the office at once. Call your doctor if your incision/area has: Increased Pain/ Swelling, Increased Redness, Foul Smelling Discharge Call your doctor if you observe: Fever of 101 or Higher Remove Dressing in (days):: 2 - Okay to remove dressing on July 26, 2017 Home Medications: Medications to take at Discharge Aspirin [Aspirin, Baby] 81 mg PO DAILY@0800 04/09/13 Quinapril HCl [Accupril] 40 mg PO DAILY 07/01/13 Magnesium Oxide [Mag-Ox 400] 400 mg PO DAILY 09/17/15 Nitroglycerin [Nitrostat] 0.4 mg SUBLINGUAL Q5M PRN 09/20/15 coenzyme Q10 200 mg capsule 200 mg PO DAILY 05/05/17 gabapentin 100 mg capsule 200 mg PO BID 05/05/17 esomeprazole magnesium 40 mg capsule,delayed release 40 mg PO DAILY cap 05/07/17 melatonin 3 mg tablet 3 mg PO HS PRN 05/07/17 amlodipine 5 mg tablet 5 mg PO DAILY 06/23/17 atorvastatin 40 mg tablet 20 mg PO QHS tab 06/23/17 furosemide 40 mg tablet 40 mg PO DAILY 06/23/17 Carvedilol [Coreg (Beta Gene)] 25 mg PO BID 07/06/17 Cholecalciferol (Vitamin D3) [Vitamin D3] 1,000 unit PO DAILY 07/06/17 Acetaminophen [Tylenol] 1,000 mg PO Q8 14 Days #90 tab 07/24/17 Oxycodone [Oxyir] 5 - 10 mg PO Q4H PRN PRN 7 Days #80 tab 07/24/17 Rivaroxaban [Xarelto] 10 mg PO DAILY@0600 #10 tab 07/24/17 Senna/Docusate Sodium [Senokot-S] 2 tab PO BID #20 tab 07/24/17 Following Prescrptions Were Given to Patient: Oxycodone [Oxyir] 5 - 10 mg PO Q4H PRN PRN 7 Days #80 tab PRN Reason: Mod-Severe Pain (4-10/10) Acetaminophen [Tylenol] 1,000 mg PO Q8 14 Days #90 tab Rivaroxaban [Xarelto] 10 mg PO DAILY@0600 #10 tab Senna/Docusate Sodium [Senokot-S] 2 tab PO BID #20 tab Primary Care Physician: Bijan Austin MD [Primary Care Provider] - Please Follow Up With: Akbar Williamson PA-C When: 08/03/17 @ 1:30 pm Additional Instructions: Follow [facility] postop instructions Patient has tolerated oxycodone in the hospital even though she lists allergy with Percocet. Medical Necessity - Tobacco Use Smoking Status: Never smoker Meaningful Use Info Meaningful Use Diagnoses (Choose all that apply): None applicable
--- NOTE | 2017-07-27 08:02 | DS.PCM_ITS ---
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) Hyperthyroidism (Chronic) Hypokalemia (Chronic) Atherosclerotic heart disease of [place] coronary artery without angina pectoris (Chronic) CABG x1 RANDLE-LAD x/Aortic Valve Replacement Left bundle-branch block (Chronic) Nonrheumatic aortic valve stenosis (Chronic) HTN (hypertension) (Chronic) Other chest pain (Chronic) Presence of aortocoronary bypass graft (Chronic) Dyspnea on exertion (Chronic) Fatigue (Chronic) Chronic pulmonary heart disease (Chronic) CVA (cerebral infarction) (Chronic) Hyperlipidemia (Chronic) Paroxysmal ventricular tachycardia (Chronic) HTN (hypertension) (Chronic) Hypothyroidism associated with surgical procedure (Chronic) had a subtotal thyroidectomy for goiter Hemorrhoids (Chronic) Restless leg syndrome (Chronic) TIA (transient ischemic attack) (Chronic) multiple Hospital Course and Treatment Summary of Care Provided: Patient is a 82-year-old female who has had ongoing left hip osteoarthritis. After failing conservative measures, the patient opted to proceed with a left total hip arthroplasty. The patient underwent the above-stated procedure on July 21, 2017. Patient did receive perioperative antibiotics. Intraoperatively was uneventful. For details please see dictated operative note. The patient was placed in thigh-high teds, bilateral SCDs, remained stable in recovery. Patient was admitted to the 3rd floor at [facility]. The patient's pain was managed with the use of IV and p.o. pain medications. Medicine was consulted due to patient's comorbidities for medical management. Patient participated in physical therapy. Patient was discharged on postoperative day #3 to [facility] detention facility. Patient was given medications stated below. Patient will follow up with [facility] per postop instructions for reassessment. Discharge Diet: No Restrictions Discharge Activity: May Not Drive - while taking narcotic pain medications. May shower in (days): 1 - Okay to shower, turned dressing away from water Ice area for (Minutes): 20 Weight Bearing Status: Weight bearing as tolerated Additional Activity Instructions:: Wear elastic stockings for 2 weeks. DO NOT use alcohol with narcotic pain medication. DO NOT make important decisions while taking narcotic medication. If you have problems with taking your medication (rash, itching, nausea, etc.) call the office at once. Call your doctor if your incision/area has: Increased Pain/ Swelling, Increased Redness, Foul Smelling Discharge Call your doctor if you observe: Fever of 101 or Higher Remove Dressing in (days):: 2 - Okay to remove dressing on July 26, 2017 Home Medications: Medications to take at Discharge Aspirin [Aspirin, Baby] 81 mg PO DAILY@0800 04/09/13 Quinapril HCl [Accupril] 40 mg PO DAILY 07/01/13 Magnesium Oxide [Mag-Ox 400] 400 mg PO DAILY 09/17/15 Nitroglycerin [Nitrostat] 0.4 mg SUBLINGUAL Q5M PRN 09/20/15 coenzyme Q10 200 mg capsule 200 mg PO DAILY 05/05/17 gabapentin 100 mg capsule 200 mg PO BID 05/05/17 esomeprazole magnesium 40 mg capsule,delayed release 40 mg PO DAILY cap melatonin 3 mg tablet 3 mg PO HS PRN 05/07/17 amlodipine 5 mg tablet 5 mg PO DAILY 06/23/17 atorvastatin 40 mg tablet 20 mg PO QHS tab 06/23/17 furosemide 40 mg tablet 40 mg PO DAILY 06/23/17 Carvedilol [Coreg (Beta Gene)] 25 mg PO BID 07/06/17 Cholecalciferol (Vitamin D3) [Vitamin D3] 1,000 unit PO DAILY 07/06/17 Acetaminophen [Tylenol] 1,000 mg PO Q8 14 Days #90 tab 07/24/17 Oxycodone [Oxyir] 5 - 10 mg PO Q4H PRN PRN 7 Days #80 tab 07/24/17 Rivaroxaban [Xarelto] 10 mg PO DAILY@0600 #10 tab 07/24/17 Senna/Docusate Sodium [Senokot-S] 2 tab PO BID #20 tab 07/24/17 Following Prescrptions Were Given to Patient: Oxycodone [Oxyir] 5 - 10 mg PO Q4H PRN PRN 7 Days #80 tab PRN Reason: Mod-Severe Pain (4-10/10) Acetaminophen [Tylenol] 1,000 mg PO Q8 14 Days #90 tab Rivaroxaban [Xarelto] 10 mg PO DAILY@0600 #10 tab Senna/Docusate Sodium [Senokot-S] 2 tab PO BID #20 tab Primary Care Physician: Bijan Austin MD [Primary Care Provider] - Please Follow Up With: Akbar Williamson PA-C When: 08/03/17 @ 1:30 pm Additional Instructions: Follow [facility] postop instructions Patient has tolerated oxycodone in the hospital even though she lists allergy with Percocet. Medical Necessity - Tobacco Use Smoking Status: Never smoker Meaningful Use Info Meaningful Use Diagnoses (Choose all that apply): None applicable
== END 2017-07-24 11:23 | disposition skilled nursing facility (03) | DRG 470 ==
LOC: ACINP 10:09 → MS3 11:46
PROVIDERS: Admitting Provider Specialist; Family Provider Family Medicine; PCP Family Medicine; Visit Provider Internal Medicine
PROC: 0SRB04A Replacement of Left Hip Joint with Ceramic on Polyethylene Synthetic Substitute, Uncemented, Open Approach (ICD-10-PCS; CPT 27284; principal; 2017-07-21 12:20)
DX: M16.12 Unilateral primary osteoarthritis, left hip (principal); I50.22 Chronic systolic (congestive) heart failure; I11.0 Hypertensive heart disease with heart failure; I48.0 Paroxysmal atrial fibrillation; D62 Acute posthemorrhagic anemia; E78.5 Hyperlipidemia, unspecified; G25.81 Restless legs syndrome; E89.0 Postprocedural hypothyroidism; I25.5 Ischemic cardiomyopathy; Z95.1 Presence of aortocoronary bypass graft; Z95.3 Presence of xenogenic heart valve; Z95.810 Presence of automatic (implantable) cardiac defibrillator; Z86.73 Personal history of transient ischemic attack (TIA), and cerebral infarction without residual deficits
CPT/HCPCS: 36415; 73501; 73502; 76000; 80048; 80076; 85027; 85610; 85730; 87077; 87081; 88305; 88311; 97110; 97116; 97162; 97166; 97530; 97535; 97802; 99251; J3010; J7050; J7120; A4216; G0463; J2405

== ENCOUNTER 2017-09-16 12:23 | Inpatient (IN) | payer MEDICARE, OTHER, SELFPAY ==
[2017-09-16] VITALS (9 sets, daily range): BP systolic 120–153; BP diastolic 49–93; PULSE 59–65; RESP 16–18; TEMP 36.4–37.3; O2SAT 91–99; BMI 30.7
[2017-09-16 13:15] LABS: Absolute Lymphocyte Count 1.14 X10^3/ul (0.83-4.51); Absolute Neutrophil Count 5.4 X10^3/uL (2.0-7.7); Basophil# 0.02 X10^3/uL; Basophil% 0.3 % (0-1); Eosinophil# 0.21 X10^3/uL; Eosinophils% 2.8 % (0-5); Hematocrit 37.6 % (37-47); Hemoglobin 11.9 g/dl (12.0-15.0); Lymphocyte # 1.14 X10^3/ul (4.0); Lymphocyte % 15.2 % (19-41); Mean Corp Hgb Conc 31.6 g/gl (32-36); Mean Corpuscular Hgb 31.3 pg (27.0-32.0); Mean Corpuscular Volume 98.9 fL (81-99); Mean Platelet Vol. 10.5 fl (6.2-12.0); Monocyte# 0.66 X10^3/uL; Monocyte% 8.8 % (0-10); Neutrophil # 5.44 X10^3/uL (2.7-7.7); Neutrophil % 72.8 % (47-70); Platelet Count 166 K/mm3 (150-450); RBC Distribution Width CV 13.5 % (11.6-14.6); RBC Distribution Width SD 47.7 fl (35.1-43.9); White Blood Count 7.5 K/mm3 (4.4-11.0)
[2017-09-16 13:16] LABS: POSITIVE COUNT NO; POSITIVE DIFFERENTIAL NO; POSITIVE MORPHOLOGY NO
[2017-09-16 13:27] LABS: Erythrocyte Sedimentation Rate 26 mm/hr (0-30)
[2017-09-16 13:50] LABS: Anion Gap 7 (5-15); BUN 14 mg/dL (7-18); BUN/Creat Ratio 16.2 RATIO (10-20); Calcium,Total 9.1 mg/dL (8.5-10.1); Chloride 106 mmol/L (98-107); Creatinine, Serum 0.86 mg/dL (0.55-1.02); EST Glomerular Filtration Rate 67 mL/min (>60); Est Glom Filt Rate - Afr Amer 81 mL/min (>60); Estimated Creatinine Clearance 41.26 ml/min; Glucose 88 mg/dL (74-106); Sodium Level 140 mmol/L (136-145)
--- NOTE | 2017-09-16 13:57 | EKG12_ITS ---
Test Reason : PREOP Blood Pressure : / mmHG Vent. Rate : 060 BPM Atrial Rate : 060 BPM P-R Int : 136 ms QRS Dur : 114 ms QT Int : 464 ms P-R-T Axes : 000 -58 115 degrees QTc Int : 464 ms AV sequential or dual chamber electronic pacemaker When compared with ECG of 06-JUL-2017 15:11, Vent. rate has decreased BY 9 BPM Confirmed by ISABEL MCQUEEN, GAEL ([id number]), sewer pipe cleaner TERRI MENA ([id number]) on 09/18/2017 2:20:31 PM Referred By: HONEY Confirmed By:GAEL HALL MD
[2017-09-16] MEDS: Celecoxib 200 MG Capsule 400 MG PO (14:43)
[2017-09-16] MEDS: Acetaminophen 500 MG Tablet 1000 MG PO ×2 (14:43→23:41)
[2017-09-16] MEDS: oxyCODONE HCl Cr 10 MG Tablet PO (15:02)
--- NOTE | 2017-09-16 17:51 | RAD_ITS ---
STUDY: X-RAY - PELVIS AND LEFT HIP REASON FOR EXAM: Female, 82 years old. Post operative exam TECHNIQUE: Radiological exam, hip, unilateral, with pelvis when performed; 2 or 3 views. COMPARISON: 09/20/2017 FINDINGS: The patient is status post left hip arthroplasty. The hardware is intact and alignment is satisfactory. There is no acute fracture or dislocation. There are moderate degenerative changes in the right hip. RAD/Hip Min 2 Views (Portable) IMPRESSION: Status post left hip arthroplasty with intact hardware in satisfactory alignment. Electronically Signed: Sukh Arceo, at 21:34 EDT Tel , Service support ,
[2017-09-16] MEDS: Cefazolin 2 GM in 0.9% Normal Saline 100 ML IV (19:07)
--- NOTE | 2017-09-16 19:35 | OP.PCM_ITS ---
Report of Operation Date of Procedure: 09/16/17 Pre-Operative Diagnosis: Draining wound left total hip Post-Operative Diagnosis: Draining wound left total hip, superficial infection Surgery/Procedure Performed:: Irrigation debridement left total hip replacement with acetabular liner and femoral head revision Description of Surgical Findings:: Stable hip with equal leg lengths. Superficial wound was explored there was noted to be an area of suspicious fluid just underneath the skin. Fascia was intact nothing could be appreciated tracking deep to the fascia. No suspicious fluid or tissue was noted in the deep wound or hip joint. auto damage appraiser: Akbar Williamson Type of Anesthesia:: General Anesthesiologist: Choco De La Paz Special Medications: 2 g Ancef, 15 mg/kg of vancomycin after cultures were obtained. 1 g of vancomycin was placed in the wound at completion of case prior to closure. Specimen's removed: 3 separate specimens were removed from the deep wound, 1 specimen was sent to microbiology from the superficial wound Estimated Blood Loss (mL): 150 Fluids Replaced: 1000 ml crystalloid Description of Procedure: Patient is 8 weeks status post left total hip replacement. She had a good follow-up at 6 weeks postop. She states that yesterday she started to see redness around her incision proximally and today it started to drain. There are 2 areas. My PA evaluate her in the office and based on her physical examination and acuity from surgery we elected to bring her back to surgery for irrigation debridement of the wound including the deep joint. Risks and benefits of the procedure were discussed with the patient including but not limited to blood loss, DVTs, PEs, neurovascular damage, infection and general risk of anesthesia. Patient demonstrated understanding wishes to proceed. Procedure: On the date of the procedure patient's left hip was marked in the preoperative area. Patient was taken back to the operating room where there transferred to the table in supine position. Anesthesia assumed control the C- spine airway and remained controlled throughout the remainder the procedure. Anesthesia administered anesthetic and all bony prominences identified well- padded. At this time patient was placed in the break of the bed with a bump underneath her sacrum. Previous incision was marked out in the left lower extremity was prepped in a sterile fashion. Surgeons then scrubbed and upon reentering room the left leg was draped in a standard orthopedic fashion. Incision was taken down to the previous incision approximately the sinus tracts were excised removing skin and the sinus tract. Distracted superficial area which was explored and debrided. After this was debrided we dissected the rest the way down to the fascia. The fascia was intact and there was nothing apparently tracking deep. At this time we felt we likely had a superficial infection prior to incising the fascia the superficial wound was adequately debrided and irrigated out with 1-1/2 L of normal saline. This was under low-pressure lavage. After the superficial wound was appropriately cleared out gloves were changed and instruments were obtained. At this time the fascia was incised and the ATFL was retracted laterally. We then made our capsulotomy did a complete synovectomy. Synovium around the joint was sent. At this time the hip could be dislocated and the head was dissociated from the trunnion. Previous had was a 36+0. Removing this we then exposed the acetabulum. Excessive tissue and synovium were debrided from around the edge of the acetabulum and liner was identified. Wire was then removed using an osteotome. Once this was removed to specimens from behind the acetabular liner from the membrane were sent for culture. Wound was then copiously out normal saline using 1.5 L of normal saline under low-pressure lavage. We then irrigated with a regular pulse lavage for another liter. At this time the wound appeared clean. No point during the deep dissection and wound did we note suspicious tissue. At this time It was opened Trident alpha code E. This was impacted into place into the acetabulum. The femoral trunnion was again exposed and the femoral head with the appropriate liner was impacted into place and trunnion was tested. All implants appeared stable. At this time the hip was again reduced and remained stable with equal leg lengths. Wound was then once again copiously irrigated out with normal saline. 1 g of vancomycin powder was placed throughout the deep wound. Fascia was closed using #1 Vicryl skin was closed using 2-0 Vicryl and final skin closure was done with 3-0 nylon. Sterile dressing was placed and patient was awakened by anesthesia and transferred to the PACU for recovery in stable condition. Postoperative plan for this patient infectious disease has been consulted. I placed the patient on vancomycin and Ancef until tomorrow we will follow cultures. Definitive antibiotic plan will be discussed with infectious disease ending culture results. During the course of the procedure the physician facility assistant played a vital role. His intimate knowledge of my steps in the procedure aided in safe and expedient completion of the procedure. The PA played a vital rolls in positioning particularly in obtaining the appropriate positioning of the sacral bump. The PA was also vital in the retraction of soft tissues during the exposure and especially the femoral work as this is a vital part of the procedure to prevent complications and fractures. The PA was also vital and protecting soft tissues during times of bony cuts and reaming. He also played a vital role in closure with my direct supervision. The PA was also important during reduction and dislocation of the joint and trials intraoperatively. Grafts/Implants Used: Gini Biolox head and 12/14 taper with sleeve, trident liner E - Complications none - Admit VTE Documentation VTE Present on Admission: No VTE Mechan Device Prophylaxis: SCD's, Thigh High PENNY Hose VTE Pharm Prophylaxis ordered?: Yes
[2017-09-16] MEDS: Ketorolac 15 MG/ML Vial IV (21:23)
[2017-09-16] MEDS: Scopolamine 1mg/72hr Patch 1 PATCH TD (23:39)
[2017-09-16] MEDS: Senna/Docusate Sodium 1 Tablet 2 TABLET PO (23:40)
--- NOTE | 2017-09-17 00:35 | PCM.CONS.GEN ---
Problem List (1) Ischemic cardiomyopathy Status: Chronic (2) Paroxysmal atrial fibrillation Status: Chronic (3) Biventricular ICD (implantable cardioverter-defibrillator) in place Status: Chronic (4) Hyperthyroidism Status: Chronic (5) Atherosclerotic heart disease of [place] coronary artery without angina pectoris Status: Chronic Qualifiers: [place] vs. transplanted heart: [place] heart Qualified Code(s): I25.10 - Atherosclerotic heart disease of [place] coronary artery without angina pectoris Comment: CABG x1 RANDLE-LAD x/Aortic Valve Replacement (6) Left bundle-branch block Status: Chronic (7) Nonrheumatic aortic valve stenosis Status: Chronic (8) Presence of aortocoronary bypass graft Status: Chronic (9) CVA (cerebral infarction) Status: Chronic Qualifiers: Cerebral infarction mechanism: unspecified mechanism Qualified Code(s): I63.9 - Cerebral infarction, unspecified (10) Hyperlipidemia Status: Chronic Qualifiers: Hyperlipidemia type: pure hypercholesterolemia Qualified Code(s): E78.00 - Pure hypercholesterolemia, unspecified; E78.00 - Pure hypercholesterolemia, unspecified; E78.00 - Pure hypercholesterolemia, unspecified; E78.0 - Pure hypercholesterolemia (11) Paroxysmal ventricular tachycardia Status: Chronic (12) HTN (hypertension) Status: Chronic Qualifiers: Hypertension type: essential hypertension Qualified Code(s): I10 - Essential (primary) hypertension; I10 - Essential (primary) hypertension; I10 - Essential (primary) hypertension (13) Restless leg syndrome Status: Chronic (14) TIA (transient ischemic attack) Status: Chronic Qualifiers: Transient cerebral ischemia type: unspecified Qualified Code(s): G45.9 - Transient cerebral ischemic attack, unspecified Comment: multiple (15) History of aortic valve replacement with bioprosthetic valve Status: Chronic Reason for Consult Date of Consultation: 09/17/17 Reason for Consultation: Medical consultation History of Present Illness: The patient is a 82 y/o F w/ PMHx: CAD s/p CABG, Valvular Heart Disease s/p AVR, Chronic Systolic CHF/Ischemic Cardiomyopathy s/p AICD, HTN, HLD, Hyperthyroidism s/p subtotal thyroidectomy for goiter, Hx CVA/TIA, Dementia Unclear Type without behavioral disturbance history, PAF recent 07/21/17 L THR who now re-presents to the [facility] on 09/16/17 secondary to prior L THR w/ erythema and incisional drainage for planned irrigation debridement left total hip replacement with acetabular liner and femoral head revision per Dr. Parr. Operative wound Cx were obtained and pending following OR. Patient denies any acute complaints and notes that pain is controlled post-operatively. Past Medical History Past Medical History (Chronic Problems): Chronic Problems (Last Updated 06/23/17 @ 17:11 by Too Cote ANIMAL CARE PROVIDER-C) Ischemic cardiomyopathy (Chronic) Paroxysmal atrial fibrillation (Chronic) 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) Hyperthyroidism (Chronic) Hypokalemia (Chronic) Atherosclerotic heart disease of [place] coronary artery without angina pectoris (Chronic) CABG x1 RANDLE-LAD x/Aortic Valve Replacement Left bundle-branch block (Chronic) Nonrheumatic aortic valve stenosis (Chronic) HTN (hypertension) (Chronic) Other chest pain (Chronic) Presence of aortocoronary bypass graft (Chronic) Dyspnea on exertion (Chronic) Fatigue (Chronic) Chronic pulmonary heart disease (Chronic) CVA (cerebral infarction) (Chronic) Hyperlipidemia (Chronic) Paroxysmal ventricular tachycardia (Chronic) HTN (hypertension) (Chronic) Hypothyroidism associated with surgical procedure (Chronic) had a subtotal thyroidectomy for goiter Hemorrhoids (Chronic) Restless leg syndrome (Chronic) TIA (transient ischemic attack) (Chronic) multiple History of aortic valve replacement with bioprosthetic valve (Chronic) Allergies adhesive Allergy (Verified 07/06/17 14:37) Unknown donepezil [Donepezil] Allergy (Verified 07/06/17 14:37) Unknown nitroglycerin Allergy (Verified 07/06/17 14:37) Unknown oxycodone HCl [From Percocet] Allergy (Verified 07/06/17 14:37) Unknown phenobarbital Allergy (Verified 07/06/17 14:37) Unknown tolmetin sodium [From Tolectin] Allergy (Verified 07/06/17 14:37) Unknown venlafaxine Allergy (Verified 07/06/17 14:37) Unknown nitropatch Allergy (Uncoded 07/06/17 14:37) unknown Home Medications: Ambulatory Orders Medication Instructions Recorded Aspirin [Aspirin, Baby] 81 mg PO DAILY@0800 04/09/13 Quinapril HCl [Accupril] 40 mg PO DAILY 07/01/13 Magnesium Oxide [Mag-Ox 400] 400 mg PO DAILY 09/17/15 Nitroglycerin [Nitrostat] 0.4 mg SUBLINGUAL Q5M PRN 09/20/15 coenzyme Q10 200 mg capsule 200 mg PO DAILY 05/05/17 gabapentin 100 mg capsule 200 mg PO BID 05/05/17 esomeprazole magnesium 40 mg 40 mg PO DAILY cap 05/07/17 capsule,delayed release melatonin 3 mg tablet 3 mg PO HS PRN 05/07/17 amlodipine 5 mg tablet 5 mg PO DAILY 06/23/17 atorvastatin 40 mg tablet 20 mg PO QHS tab 06/23/17 furosemide 40 mg tablet 40 mg PO DAILY 06/23/17 Carvedilol [Coreg (Beta Gene)] 25 mg PO BID 07/06/17 Cholecalciferol (Vitamin D3) 1,000 unit PO DAILY 07/06/17 [Vitamin D3] Oxycodone [Oxyir] 5 - 10 mg PO Q4H PRN PRN 7 Days 07/24/17 #80 tab Rivaroxaban [Xarelto] 10 mg PO DAILY@0600 #10 tab 07/24/17 Senna/Docusate Sodium [Senokot-S] 2 tab PO BID #20 tab 07/24/17 Acetaminophen [Tylenol] 1,000 mg PO Q8 09/16/17 traMADol [Ultram (G)] 50 mg PO Q6H PRN PRN 09/16/17 Surgical History: appendectomy, cholecystectomy, coronary bypass surgery, hysterectomy - She still has ovaries and fallopian tubes. 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 Denies: Chills, Fever, Weight Change HEENT: Denies: Head Aches, Sinus Congestion, Sinus Drainage Cardiovascular: Denies: Chest Pain, Palpitations Respiratory: Denies: Cough, Shortness of breath at rest, Sputum production Gastrointestinal: Denies: Abdominal Pain, Nausea, Vomiting Genitourinary: Denies: Dysuria Musculoskeletal: Reports: Joint stiffness, Joint swelling, Joint Tenderness. Denies: Joint Pain Skin: Reports: Skin Changes. Denies: Rash, Wounds Neurological: Denies: Numbness, Tingling, Focal weakness Psychiatric: Denies: Anxiety, Depression, Homicidal Ideations, Suicidal Ideations Hematologic/ Lymphatic: Denies: Easy Bruising, Easy Bleeding Subjective: Seated upright in the bed, NAD, notes no current pain. Objective: Physical Examination: General: awake, alert, oriented to self, place, recent events, and cooperative, seated upright in bed in no apparent distress. Skin: normal color, turgor, no icterus, cyanosis except L hip dressing in place, no marked drainage. HEENT: AT/NC, EOMI, PERRLA, MMM, no carotid bruits or JVD noted. Lungs: CTA bilaterally, moderate effort, mild decrease BL bases, no rales, ronchi or wheezing. Heart: Regular rate and rhythm; no gallop, rub audible. Abdomen: soft, obese, NTTP, ND, normal BS, no HSM. Extremities: no cyanosis, clubbing, s/p I+D L hip s/p prior L THR. Neurological: patient awake, alert, oriented as noted; cognitive function baseline intact, dementia baseline; pupils equally reactive to light and accomodation; cranial nerves II-XII grossly normal, moving all 4 extremities but limited LLE given recent intervention, strength accordingly moderately to severely globally decreased. Psychiatric: affect appears normal, no acute evidence of depressive or anxiety feelings. - Physical Exam Vital Signs Temp Pulse Resp BP Pulse Ox 98.3 F 59 L 16 125/93 H 99 09/16/17 22:26 09/16/17 22:26 09/16/17 22:26 09/16/17 22:26 09/16/17 22:26 Oxygen Flow Rate (L/min) 1.5 Oxygen Delivery Method Nasal Cannula Weight: 167 lb 15.876 oz Body Mass Index (BMI) 30.7 Finger Stick Blood Glucose 156 Intake and Output for Last 24 Hours 09/15/17 09/16/17 09/17/17 23:59 23:59 23:59 Intake Total 2028 Balance 2028 Laboratory Tests Past 24 Hrs 09/16/17 09/16/17 09/16/17 13:00 13:00 13:00 WBC 7.5 RBC 3.80 L Hgb 11.9 L Hct 37.6 MCV 98.9 MCH 31.3 MCHC 31.6 L RDW 13.5 RDW Differential 47.7 H Plt Count 166 MPV 10.5 Immature Gran % (Auto) 0.100 Neut % (Auto) 72.8 H Lymph % (Auto) 15.2 L [place] % (Auto) 8.8 Eos % (Auto) 2.8 Baso % (Auto) 0.3 Absolute Neuts (auto) 5.4 Absolute Lymphs (auto) 1.14 Total Counted Not Reportable ESR 26 Sodium 140 Potassium 4.0 Chloride 106 Carbon Dioxide 27.0 Anion Gap 7 BUN 14 Creatinine 0.86 Estim Creat Clear Calc 41.26 Est GFR (MDRD) Af Amer 81 Est GFR (MDRD) Non-Af 67 BUN/Creatinine Ratio 16.2 Glucose 88 Calcium 9.1 C-React Prot Ext Range 13.70 H Assessment/Plan The patient is a 82 y/o F w/ PMHx: CAD s/p CABG, Valvular Heart Disease s/p AVR, Chronic Systolic CHF/Ischemic Cardiomyopathy s/p AICD, HTN, HLD, Hyperthyroidism s/p subtotal thyroidectomy for goiter, Hx CVA/TIA, Dementia Unclear Type without behavioral disturbance history, PAF recent 07/21/17 L THR who now re-presents to the [facility] on 09/16/17 secondary to prior L THR w/ erythema and incisional drainage for planned irrigation debridement left total hip replacement with acetabular liner and femoral head revision per Dr. Parr. (1) Infected Incision L THR: Noted fluid beneath incision, wound cx obtained in OR, pending. Admitted to [facility] per Dr. Parr, maintained on IV vanc and ancef pending ID evaluation, pain regimen, bowel regimen, therapies and DVT Prophylaxis per Orthopedic surgery discretion. CRP 13.70, ESR 26. CBC without marked WBC elevation. (2) CAD: s/p CABG, maintain on asa, statin, BB. (3) Valvular Heart Disease: s/p AVR, bioprosthetic. (4) Chronic Systolic CHF/Ischemic Cardiomyopathy: s/p AICD/pacemaker, maintain on asa, statin, BB, lasix, ACEI. (5) Hypertension: Continue home regimen including Norvasc, Lasix, Coreg, quinapril, PRN hydralazine. (6) Hyperlipidemia: Continue home statin regimen. (7) Hyperthyroidism: s/p subtotal thyroidectomy for goiter. (8) Hx CVA/TIA: Maintain on asa, statin, BP regimen. (9) Dementia Unclear Type without behavioral disturbance history: Pleasant, frequent orientation, fall precautions. (10) PAF: s/p pacemaker, maintain on coreg, not anticoagulated. (11) DVT Prophylaxis: SCDs, ASA 325 mg BID per Orthopedic surgery; however, was on xarelto prophylaxis prior (only 10 mg daily). Code Visit Office Visits / Consults: [id number] IP Consult L5
--- NOTE | 2017-09-17 00:50 | CON.PCM_ITS ---
Problem List (1) Ischemic cardiomyopathy Status: Chronic (2) Paroxysmal atrial fibrillation Status: Chronic (3) Biventricular ICD (implantable cardioverter-defibrillator) in place Status: Chronic (4) Hyperthyroidism Status: Chronic (5) Atherosclerotic heart disease of [place] coronary artery without angina pectoris Status: Chronic Qualifiers: [place] vs. transplanted heart: [place] heart Qualified Code(s): I25.10 - Atherosclerotic heart disease of [place] coronary artery without angina pectoris Comment: CABG x1 RANDLE-LAD x/Aortic Valve Replacement (6) Left bundle-branch block Status: Chronic (7) Nonrheumatic aortic valve stenosis Status: Chronic (8) Presence of aortocoronary bypass graft Status: Chronic (9) CVA (cerebral infarction) Status: Chronic Qualifiers: Cerebral infarction mechanism: unspecified mechanism Qualified Code(s): I63.9 - Cerebral infarction, unspecified (10) Hyperlipidemia Status: Chronic Qualifiers: Hyperlipidemia type: pure hypercholesterolemia Qualified Code(s): E78.00 - Pure hypercholesterolemia, unspecified; E78.00 - Pure hypercholesterolemia, unspecified; E78.00 - Pure hypercholesterolemia, unspecified; E78.0 - Pure hypercholesterolemia (11) Paroxysmal ventricular tachycardia Status: Chronic (12) HTN (hypertension) Status: Chronic Qualifiers: Hypertension type: essential hypertension Qualified Code(s): I10 - Essential (primary) hypertension; I10 - Essential (primary) hypertension; I10 - Essential (primary) hypertension (13) Restless leg syndrome Status: Chronic (14) TIA (transient ischemic attack) Status: Chronic Qualifiers: Transient cerebral ischemia type: unspecified Qualified Code(s): G45.9 - Transient cerebral ischemic attack, unspecified Comment: multiple (15) History of aortic valve replacement with bioprosthetic valve Status: Chronic Reason for Consult Date of Consultation: 09/17/17 Reason for Consultation: Medical consultation History of Present Illness: The patient is a 82 y/o F w/ PMHx: CAD s/p CABG, Valvular Heart Disease s/p AVR , Chronic Systolic CHF/Ischemic Cardiomyopathy s/p AICD, HTN, HLD, Hyperthyroidism s/p subtotal thyroidectomy for goiter, Hx CVA/TIA, Dementia Unclear Type without behavioral disturbance history, PAF recent 07/21/17 L THR who now re-presents to the [facility] on 09/16/17 secondary to prior L THR w/ erythema and incisional drainage for planned irrigation debridement left total hip replacement with acetabular liner and femoral head revision per Dr. Parr. Operative wound Cx were obtained and pending following OR. Patient denies any acute complaints and notes that pain is controlled post-operatively. Past Medical History Past Medical History (Chronic Problems): Chronic Problems (Last Updated 06/23/17 @ 17:11 by Too Cote 3RD PRESSMAN-C) Ischemic cardiomyopathy (Chronic) Paroxysmal atrial fibrillation (Chronic) 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) Hyperthyroidism (Chronic) Hypokalemia (Chronic) Atherosclerotic heart disease of [place] coronary artery without angina pectoris (Chronic) CABG x1 RANDLE-LAD x/Aortic Valve Replacement Left bundle-branch block (Chronic) Nonrheumatic aortic valve stenosis (Chronic) HTN (hypertension) (Chronic) Other chest pain (Chronic) Presence of aortocoronary bypass graft (Chronic) Dyspnea on exertion (Chronic) Fatigue (Chronic) Chronic pulmonary heart disease (Chronic) CVA (cerebral infarction) (Chronic) Hyperlipidemia (Chronic) Paroxysmal ventricular tachycardia (Chronic) HTN (hypertension) (Chronic) Hypothyroidism associated with surgical procedure (Chronic) had a subtotal thyroidectomy for goiter Hemorrhoids (Chronic) Restless leg syndrome (Chronic) TIA (transient ischemic attack) (Chronic) multiple History of aortic valve replacement with bioprosthetic valve (Chronic) Allergies adhesive Allergy (Verified 07/06/17 14:37) Unknown donepezil [Donepezil] Allergy (Verified 07/06/17 14:37) Unknown nitroglycerin Allergy (Verified 07/06/17 14:37) Unknown oxycodone HCl [From Percocet] Allergy (Verified 07/06/17 14:37) Unknown phenobarbital Allergy (Verified 07/06/17 14:37) Unknown tolmetin sodium [From Tolectin] Allergy (Verified 07/06/17 14:37) Unknown venlafaxine Allergy (Verified 07/06/17 14:37) Unknown nitropatch Allergy (Uncoded 07/06/17 14:37) unknown Home Medications: Ambulatory Orders Medication Instructions Recorded Aspirin [Aspirin, Baby] 81 mg PO DAILY@0800 04/09/13 Quinapril HCl [Accupril] 40 mg PO DAILY 07/01/13 Magnesium Oxide [Mag-Ox 400] 400 mg PO DAILY 09/17/15 Nitroglycerin [Nitrostat] 0.4 mg SUBLINGUAL Q5M PRN 09/20/15 coenzyme Q10 200 mg capsule 200 mg PO DAILY 05/05/17 gabapentin 100 mg capsule 200 mg PO BID 05/05/17 esomeprazole magnesium 40 mg 40 mg PO DAILY cap 05/07/17 capsule,delayed release melatonin 3 mg tablet 3 mg PO HS PRN 05/07/17 amlodipine 5 mg tablet 5 mg PO DAILY 06/23/17 atorvastatin 40 mg tablet 20 mg PO QHS tab 06/23/17 furosemide 40 mg tablet 40 mg PO DAILY 06/23/17 Carvedilol [Coreg (Beta Gene)] 25 mg PO BID 07/06/17 Cholecalciferol (Vitamin D3) 1,000 unit PO DAILY 07/06/17 [Vitamin D3] Oxycodone [Oxyir] 5 - 10 mg PO Q4H PRN PRN 7 Days 07/24/17 #80 tab Rivaroxaban [Xarelto] 10 mg PO DAILY@0600 #10 tab 07/24/17 Senna/Docusate Sodium [Senokot-S] 2 tab PO BID #20 tab 07/24/17 Acetaminophen [Tylenol] 1,000 mg PO Q8 09/16/17 traMADol [Ultram (G)] 50 mg PO Q6H PRN PRN 09/16/17 Surgical History: appendectomy, cholecystectomy, coronary bypass surgery, hysterectomy - She still has ovaries and fallopian tubes. 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 Denies: Chills, Fever, Weight Change HEENT: Denies: Head Aches, Sinus Congestion, Sinus Drainage Cardiovascular: Denies: Chest Pain, Palpitations Respiratory: Denies: Cough, Shortness of breath at rest, Sputum production Gastrointestinal: Denies: Abdominal Pain, Nausea, Vomiting Genitourinary: Denies: Dysuria Musculoskeletal: Reports: Joint stiffness, Joint swelling, Joint Tenderness. Denies: Joint Pain Skin: Reports: Skin Changes. Denies: Rash, Wounds Neurological: Denies: Numbness, Tingling, Focal weakness Psychiatric: Denies: Anxiety, Depression, Homicidal Ideations, Suicidal Ideations Hematologic/ Lymphatic: Denies: Easy Bruising, Easy Bleeding Subjective: Seated upright in the bed, NAD, notes no current pain. Objective: Physical Examination: General: awake, alert, oriented to self, place, recent events, and cooperative, seated upright in bed in no apparent distress. Skin: normal color, turgor, no icterus, cyanosis except L hip dressing in place , no marked drainage. HEENT: AT/NC, EOMI, PERRLA, MMM, no carotid bruits or JVD noted. Lungs: CTA bilaterally, moderate effort, mild decrease BL bases, no rales, ronchi or wheezing. Heart: Regular rate and rhythm; no gallop, rub audible. Abdomen: soft, obese, NTTP, ND, normal BS, no HSM. Extremities: no cyanosis, clubbing, s/p I+D L hip s/p prior L THR. Neurological: patient awake, alert, oriented as noted; cognitive function baseline intact, dementia baseline; pupils equally reactive to light and accomodation; cranial nerves II-XII grossly normal, moving all 4 extremities but limited LLE given recent intervention, strength accordingly moderately to severely globally decreased. Psychiatric: affect appears normal, no acute evidence of depressive or anxiety feelings. - Physical Exam Vital Signs Temp Pulse Resp BP Pulse Ox 98.3 F 59 L 16 125/93 H 99 09/16/17 22:26 09/16/17 22:26 09/16/17 22:26 09/16/17 22:26 09/16/17 22:26 Oxygen Flow Rate (L/min) 1.5 Oxygen Delivery Method Nasal Cannula Weight: 167 lb 15.876 oz Body Mass Index (BMI) 30.7 Finger Stick Blood Glucose 156 Intake and Output for Last 24 Hours 09/15/17 09/16/17 09/17/17 23:59 23:59 23:59 Intake Total 2028 Balance 2028 Laboratory Tests Past 24 Hrs 09/16/17 09/16/17 09/16/17 13:00 13:00 13:00 WBC 7.5 RBC 3.80 L Hgb 11.9 L Hct 37.6 MCV 98.9 MCH 31.3 MCHC 31.6 L RDW 13.5 RDW Differential 47.7 H Plt Count 166 MPV 10.5 Immature Gran % (Auto) 0.100 Neut % (Auto) 72.8 H Lymph % (Auto) 15.2 L [place] % (Auto) 8.8 Eos % (Auto) 2.8 Baso % (Auto) 0.3 Absolute Neuts (auto) 5.4 Absolute Lymphs (auto) 1.14 Total Counted Not Reportable ESR 26 Sodium 140 Potassium 4.0 Chloride 106 Carbon Dioxide 27.0 Anion Gap 7 BUN 14 Creatinine 0.86 Estim Creat Clear Calc 41.26 Est GFR (MDRD) Af Amer 81 Est GFR (MDRD) Non-Af 67 BUN/Creatinine Ratio 16.2 Glucose 88 Calcium 9.1 C-React Prot Ext Range 13.70 H Assessment/Plan The patient is a 82 y/o F w/ PMHx: CAD s/p CABG, Valvular Heart Disease s/p AVR , Chronic Systolic CHF/Ischemic Cardiomyopathy s/p AICD, HTN, HLD, Hyperthyroidism s/p subtotal thyroidectomy for goiter, Hx CVA/TIA, Dementia Unclear Type without behavioral disturbance history, PAF recent 07/21/17 L THR who now re-presents to the [facility] on 09/16/17 secondary to prior L THR w/ erythema and incisional drainage for planned irrigation debridement left total hip replacement with acetabular liner and femoral head revision per Dr. Parr. (1) Infected Incision L THR: Noted fluid beneath incision, wound cx obtained in OR, pending. Admitted to [facility] per Dr. Parr, maintained on IV vanc and ancef pending ID evaluation, pain regimen, bowel regimen, therapies and DVT Prophylaxis per Orthopedic surgery discretion. CRP 13.70, ESR 26. CBC without marked WBC elevation. (2) CAD: s/p CABG, maintain on asa, statin, BB. (3) Valvular Heart Disease: s/p AVR, bioprosthetic. (4) Chronic Systolic CHF/Ischemic Cardiomyopathy: s/p AICD/pacemaker, maintain on asa, statin, BB, lasix, ACEI. (5) Hypertension: Continue home regimen including Norvasc, Lasix, Coreg, quinapril, PRN hydralazine. (6) Hyperlipidemia: Continue home statin regimen. (7) Hyperthyroidism: s/p subtotal thyroidectomy for goiter. (8) Hx CVA/TIA: Maintain on asa, statin, BP regimen. (9) Dementia Unclear Type without behavioral disturbance history: Pleasant, frequent orientation, fall precautions. (10) PAF: s/p pacemaker, maintain on coreg, not anticoagulated. (11) DVT Prophylaxis: SCDs, ASA 325 mg BID per Orthopedic surgery; however, was on xarelto prophylaxis prior (only 10 mg daily). Code Visit Office Visits / Consults: [phone] IP Consult L5
[2017-09-17 01:01] VITALS: BMI 30.7
[2017-09-17 01:05] VITALS: BP 104/70; PULSE 61; RESP 16; TEMP 36.9; O2SAT 96
[2017-09-17 02:47] VITALS: BP 142/88; PULSE 60; RESP 16; TEMP 36.8; O2SAT 95
[2017-09-17 02:49] VITALS: BMI 30.7
[2017-09-17] MEDS: Cefazolin 1 GM/50 ML BAG IV ×3 (03:04→19:59)
[2017-09-17] MEDS: Lactated Ringers 1,000 ML 125 ML IV ×2 (03:08→14:18)
[2017-09-17 05:00] VITALS: O2SAT 97
--- NOTE | 2017-09-17 05:38 | PCM.RX.CS ---
Consult Pharmacy has been consulted to manage selected antiobiotic: Vancomycin Type of Consult: New start Suspected Infection: Skin/Soft tissue Labs: Sodium 140 mmol/L (136-145) 09/16/17 13:00 Potassium 4.0 mmol/L (3.5-5.1) 09/16/17 13:00 Chloride 106 mmol/L (98-107) 09/16/17 13:00 Carbon Dioxide 27.0 mmol/L (21.0-32.0) 09/16/17 13:00 Anion Gap 7 (5-15) 09/16/17 13:00 BUN 14 mg/dL (7-18) 09/16/17 13:00 Creatinine 0.86 mg/dL (0.55-1.02) 09/16/17 13:00 Est GFR (MDRD) Af Amer 81 mL/min (>60) 09/16/17 13:00 Est GFR (MDRD) Non-Af 67 mL/min (>60) 09/16/17 13:00 BUN/Creatinine Ratio 16.2 RATIO (10-20) 09/16/17 13:00 Glucose 88 mg/dL (74-106) 09/16/17 13:00 Goal Trough: 15-20 mcg/mL Pharmacy Plan for Drug Dosing: Pharmacy Service will continue to monitor and adjust dosing as required. Medications Vancomycin HCl 750 mg/ Sodium (Chloride) 265 mls @ 265 mls/hr IV Q12H WENDY Discontinued Medications Vancomycin HCl 1,250 mg/ (Dextrose) 275 mls @ 250 mls/hr IV RX TO DOSE ONE Stop: 09/16/17 20:20 Last Admin: 09/16/17 19:49 Dose: 250 mls/hr Follow-Up Labs: Trough Vancomycin Labs to be done on [date and time ordered]: 09/18 @0800
[2017-09-17] MEDS: Acetaminophen 500 MG Tablet 1000 MG PO ×3 (05:47→21:21)
[2017-09-17 06:10] LABS: Hematocrit 30.1 % (37-47); Hemoglobin 9.4 g/dl (12.0-15.0); Mean Corp Hgb Conc 31.2 g/gl (32-36); Mean Corpuscular Hgb 31.2 pg (27.0-32.0); Mean Platelet Vol. 10.8 fl (6.2-12.0); Platelet Count 122 K/mm3 (150-450); RBC Distribution Width SD 46.3 fl (35.1-43.9); Red Blood Count 3.01 M/mm3 (4.2-5.4); White Blood Count 6.6 K/mm3 (4.4-11.0)
[2017-09-17 06:11] LABS: Scan Indicated on CBC? Y/N NO
[2017-09-17 06:32] LABS: Anion Gap 6 (5-15); BUN 15 mg/dL (7-18); BUN/Creat Ratio 18.6 RATIO (10-20); Calcium,Total 8.3 mg/dL (8.5-10.1); Chloride 107 mmol/L (98-107); Creatinine, Serum 0.81 mg/dL (0.55-1.02); EST Glomerular Filtration Rate 73 mL/min (>60); Est Glom Filt Rate - Afr Amer 88 mL/min (>60); Estimated Creatinine Clearance 43.81 ml/min; Glucose 94 mg/dL (74-106); Sodium Level 141 mmol/L (136-145)
[2017-09-17] MEDS: Aspirin 325 MG Tablet PO ×2 (08:03→16:44)
--- NOTE | 2017-09-17 08:51 | PCM.PROGNOTE ---
Patient Problems: Active and Suspected Problems (Last Updated 06/23/17 @ 16:16 by Susannah Brooks) Surgical site infection (Acute) Subjective: Hospitalist follow-up Day #2 vancomycin and Ancef Patient is an 82-year-old female with a past medical history of coronary artery disease (status post CABG), valvular heart disease (status post aVR), chronic systolic congestive heart failure/ischemic cardiomyopathy, history of AICD, hypertension, hyperlipidemia, hyperthyroidism (status post subtotal thyroidectomy for goiter), history of CVA/TIAs, dementia with behavioral disturbance, atrial fibrillation, left total hip replacement on 07/21/2017, presented to [facility] on 09/16/2017 for erythema and drainage from the proximal end of the incision. ESR was 26 and the CRP was 13.7. The white blood cell count was 7.5 with 73% neutrophils. She was admitted to the hospital by Dr. Parr. The hospitalist service was consulted for multiple medical comorbidities/management. I discussed the case with the orthopedic PA who tells me that the wound tracked into the subcutaneous tissue and there was a suspicious fluid collection but, the fascia was intact with no evidence of tracking into the deep fascia or into the hip joint. It was irrigated. Multiple cultures were taken and results are pending. T-max 99.2 at admission and currently afebrile. Vital signs are stable. She is 95% saturated on a 1.5 L nasal cannula. Lab today shows a white blood cell count of 6.6 with hemoglobin of 9.4, down from 11.9 at admission and platelet count of 122,000. Electrolytes, BUN and creatinine are within normal limits. - Physical Exam General: Alert, Cooperative, No apparent distress, Well developed, Well nourished HEENT: Atraumatic, PERRLA, EOMI Oral: Moist Mucosa, No Gingival or Mucosal Lesions/ Ulcerations Neck: Supple, No JVD Lungs: Clear to auscultation, No rhonchi, No wheeze, No rales Cardiovascular: Regular rate, Regular Rhythm, Normal S1, Normal S2, No rub noted, No Gallop Abdomen: Bowel Sounds Present, Soft, Non Tender, Non-Distended Extremities: No clubbing, No cyanosis, Edema - of the left upper thigh Skin: - - she has intertrigo beneath the dressing in the left groin Musculoskeletal: Arthritic Changes Neurological: Cranial nerves II-XII grossly intact, Neuro grossly intact Psych/Mental Status: Normal Affect, Appropriate Vital Signs Temp Pulse Resp BP Pulse Ox 98.2 F 60 16 142/88 H 97 09/17/17 02:47 09/17/17 02:47 09/17/17 02:47 09/17/17 02:47 09/17/17 05:00 Oxygen Flow Rate (L/min) 2 Oxygen Delivery Method Nasal Cannula Weight: 167 lb 15.876 oz Body Mass Index (BMI) 30.7 Finger Stick Blood Glucose 156 Intake and Output for Last 24 Hours 09/15/17 09/16/17 09/17/17 23:59 23:59 23:59 Intake Total 2028 956 / 956 Output Total 200 / 200 Balance 2028 756 / 756 Laboratory Tests Past 24 Hrs 09/16/17 09/16/17 09/16/17 13:00 13:00 13:00 WBC 7.5 RBC 3.80 L Hgb 11.9 L Hct 37.6 MCV 98.9 MCH 31.3 MCHC 31.6 L RDW 13.5 RDW Differential 47.7 H Plt Count 166 MPV 10.5 Immature Gran % (Auto) 0.100 Neut % (Auto) 72.8 H Lymph % (Auto) 15.2 L [place] % (Auto) 8.8 Eos % (Auto) 2.8 Baso % (Auto) 0.3 Absolute Neuts (auto) 5.4 Absolute Lymphs (auto) 1.14 Total Counted Not Reportable ESR 26 Sodium 140 Potassium 4.0 Chloride 106 Carbon Dioxide 27.0 Anion Gap 7 BUN 14 Creatinine 0.86 Estim Creat Clear Calc 41.26 Est GFR (MDRD) Af Amer 81 Est GFR (MDRD) Non-Af 67 BUN/Creatinine Ratio 16.2 Glucose 88 Calcium 9.1 C-React Prot Ext Range 13.70 H 09/17/17 09/17/17 05:45 05:45 WBC 6.6 RBC 3.01 L Hgb 9.4 L Hct 30.1 L MCV 100.0 H MCH 31.2 MCHC 31.2 L RDW 13.0 RDW Differential 46.3 H Plt Count 122 L MPV 10.8 Immature Gran % (Auto) Neut % (Auto) Lymph % (Auto) [place] % (Auto) Eos % (Auto) Baso % (Auto) Absolute Neuts (auto) Absolute Lymphs (auto) Total Counted ESR Sodium 141 Potassium 4.0 Chloride 107 Carbon Dioxide 28.0 Anion Gap 6 BUN 15 Creatinine 0.81 Estim Creat Clear Calc 43.81 Est GFR (MDRD) Af Amer 88 Est GFR (MDRD) Non-Af 73 BUN/Creatinine Ratio 18.6 Glucose 94 Calcium 8.3 L C-React Prot Ext Range Medical Necessity - Tobacco Use Smoking Status: Never smoker Tobacco Use: Non-smoker Assessment/Plan Active and Suspected Problems (Last Updated 06/23/17 @ 16:16 by Susannah Brooks) Surgical site infection (Acute) Vancomycin and Ancef day #1 Impressions 1. superficial left groin after recent L total hip - S/P irrigation with new acetabular liner and femoral head revision 2. CAD 3. hx of CABG 4. - S/P bioprosthetic AVR 5. Ischemic cardiomyopathy with chronic systolic congestive heart failure 6. History of AICD/pacemaker 7. Hypertension 8. Hyperlipidemia 9. Hyperthyroidism history-status post subtotal thyroidectomy. TSH and T4 were normal in April 2017. Continue Ancef and vancomycin Appreciate Dr. Mcpherson's input Await the results of cultures done at the time of surgery Start fluconazole for intertrigo, 100 mg daily ?3 days....... this may have led to the superficial breakdown of skin and subsequent superficial fluid collection/infection Continue her regular medications Check lab in the a.m. Code Visit Procedures: [id number] Prolonged Physician INPT
--- NOTE | 2017-09-17 09:01 | PN_ITS ---
Patient Problems: Active and Suspected Problems (Last Updated 06/23/17 @ 16:16 by Susannah Brooks) Surgical site infection (Acute) Subjective: Hospitalist follow-up Day #2 vancomycin and Ancef Patient is an 82-year-old female with a past medical history of coronary artery disease (status post CABG), valvular heart disease (status post aVR), chronic systolic congestive heart failure/ischemic cardiomyopathy, history of AICD, hypertension, hyperlipidemia, hyperthyroidism (status post subtotal thyroidectomy for goiter), history of CVA/TIAs, dementia with behavioral disturbance, atrial fibrillation, left total hip replacement on 07/21/2017, presented to [facility] on 09/16/2017 for erythema and drainage from the proximal end of the incision. ESR was 26 and the CRP was 13.7. The white blood cell count was 7.5 with 73% neutrophils. She was admitted to the hospital by Dr. Parr. The hospitalist service was consulted for multiple medical comorbidities/management. I discussed the case with the orthopedic PA who tells me that the wound tracked into the subcutaneous tissue and there was a suspicious fluid collection but, the fascia was intact with no evidence of tracking into the deep fascia or into the hip joint. It was irrigated. Multiple cultures were taken and results are pending. T-max 99.2 at admission and currently afebrile. Vital signs are stable. She is 95% saturated on a 1.5 L nasal cannula. Lab today shows a white blood cell count of 6.6 with hemoglobin of 9.4, down from 11.9 at admission and platelet count of 122,000. Electrolytes, BUN and creatinine are within normal limits. - Physical Exam General: Alert, Cooperative, No apparent distress, Well developed, Well nourished HEENT: Atraumatic, PERRLA, EOMI Oral: Moist Mucosa, No Gingival or Mucosal Lesions/ Ulcerations Neck: Supple, No JVD Lungs: Clear to auscultation, No rhonchi, No wheeze, No rales Cardiovascular: Regular rate, Regular Rhythm, Normal S1, Normal S2, No rub noted , No Gallop Abdomen: Bowel Sounds Present, Soft, Non Tender, Non-Distended Extremities: No clubbing, No cyanosis, Edema - of the left upper thigh Skin: - - she has intertrigo beneath the dressing in the left groin Musculoskeletal: Arthritic Changes Neurological: Cranial nerves II-XII grossly intact, Neuro grossly intact Psych/Mental Status: Normal Affect, Appropriate Vital Signs Temp Pulse Resp BP Pulse Ox 98.2 F 60 16 142/88 H 97 09/17/17 02:47 09/17/17 02:47 09/17/17 02:47 09/17/17 02:47 09/17/17 05:00 Oxygen Flow Rate (L/min) 2 Oxygen Delivery Method Nasal Cannula Weight: 167 lb 15.876 oz Body Mass Index (BMI) 30.7 Finger Stick Blood Glucose 156 Intake and Output for Last 24 Hours 09/15/17 09/16/17 09/17/17 23:59 23:59 23:59 Intake Total 2028 956 / 956 Output Total 200 / 200 Balance 2028 756 / 756 Laboratory Tests Past 24 Hrs 09/16/17 09/16/17 09/16/17 13:00 13:00 13:00 WBC 7.5 RBC 3.80 L Hgb 11.9 L Hct 37.6 MCV 98.9 MCH 31.3 MCHC 31.6 L RDW 13.5 RDW Differential 47.7 H Plt Count 166 MPV 10.5 Immature Gran % (Auto) 0.100 Neut % (Auto) 72.8 H Lymph % (Auto) 15.2 L [place] % (Auto) 8.8 Eos % (Auto) 2.8 Baso % (Auto) 0.3 Absolute Neuts (auto) 5.4 Absolute Lymphs (auto) 1.14 Total Counted Not Reportable ESR 26 Sodium 140 Potassium 4.0 Chloride 106 Carbon Dioxide 27.0 Anion Gap 7 BUN 14 Creatinine 0.86 Estim Creat Clear Calc 41.26 Est GFR (MDRD) Af Amer 81 Est GFR (MDRD) Non-Af 67 BUN/Creatinine Ratio 16.2 Glucose 88 Calcium 9.1 C-React Prot Ext Range 13.70 H 09/17/17 09/17/17 05:45 05:45 WBC 6.6 RBC 3.01 L Hgb 9.4 L Hct 30.1 L MCV 100.0 H MCH 31.2 MCHC 31.2 L RDW 13.0 RDW Differential 46.3 H Plt Count 122 L MPV 10.8 Immature Gran % (Auto) Neut % (Auto) Lymph % (Auto) [place] % (Auto) Eos % (Auto) Baso % (Auto) Absolute Neuts (auto) Absolute Lymphs (auto) Total Counted ESR Sodium 141 Potassium 4.0 Chloride 107 Carbon Dioxide 28.0 Anion Gap 6 BUN 15 Creatinine 0.81 Estim Creat Clear Calc 43.81 Est GFR (MDRD) Af Amer 88 Est GFR (MDRD) Non-Af 73 BUN/Creatinine Ratio 18.6 Glucose 94 Calcium 8.3 L C-React Prot Ext Range Medical Necessity - Tobacco Use Smoking Status: Never smoker Tobacco Use: Non-smoker Assessment/Plan Active and Suspected Problems (Last Updated 06/23/17 @ 16:16 by Susannah Brooks) Surgical site infection (Acute) Vancomycin and Ancef day #1 Impressions 1. superficial left groin after recent L total hip - S/P irrigation with new acetabular liner and femoral head revision 2. CAD 3. hx of CABG 4. - S/P bioprosthetic AVR 5. Ischemic cardiomyopathy with chronic systolic congestive heart failure 6. History of AICD/pacemaker 7. Hypertension 8. Hyperlipidemia 9. Hyperthyroidism history-status post subtotal thyroidectomy. TSH and T4 were normal in April 2017. Continue Ancef and vancomycin Appreciate Dr. Mcpherson's input Await the results of cultures done at the time of surgery Start fluconazole for intertrigo, 100 mg daily ?3 days....... this may have led to the superficial breakdown of skin and subsequent superficial fluid collection /infection Continue her regular medications Check lab in the a.m. Code Visit Procedures: [id number] Prolonged Physician INPT
--- NOTE | 2017-09-17 09:07 | PN.ORTHO_ITS ---
Subjective: The patient was sitting in bed upon examination. Patient denies any chest pain , shortness of breath, dizziness, lightheadedness, nausea or vomiting, or calf pain. Pain is controlled on medications. No adverse overnight events. Overall patient is doing well today. She does not complain of significant pain in the left hip. Cultures were obtained intraoperatively and are currently pending. Consult for infectious disease was placed for management of antibiotics. Objective: Vital signs stable and afebrile. Patient is able to plantarflex and dorsiflex actively. Sensation is intact to light touch to saphenous, sural, superficial and deep peroneal, and tibial distribution. Dressing is clean dry and intact. Negative Homans bilaterally, negative signs and symptoms of DVT. - Physical Exam General: Alert, Oriented x3, Cooperative, No apparent distress Vital Signs Temp Pulse Resp BP Pulse Ox 98.2 F 60 16 142/88 H 97 09/17/17 02:47 09/17/17 02:47 09/17/17 02:47 09/17/17 02:47 09/17/17 05:00 Oxygen Flow Rate (L/min) 2 Oxygen Delivery Method Nasal Cannula Weight: 76.2 kg Body Mass Index (BMI) 30.7 Finger Stick Blood Glucose 156 Intake and Output for Last 24 Hours 09/15/17 09/16/17 09/17/17 23:59 23:59 23:59 Intake Total 2028 956 / 956 Output Total 200 / 200 Balance 2028 756 / 756 Laboratory Tests Past 24 Hrs 09/16/17 09/16/17 09/16/17 13:00 13:00 13:00 WBC 7.5 RBC 3.80 L Hgb 11.9 L Hct 37.6 MCV 98.9 MCH 31.3 MCHC 31.6 L RDW 13.5 RDW Differential 47.7 H Plt Count 166 MPV 10.5 Immature Gran % (Auto) 0.100 Neut % (Auto) 72.8 H Lymph % (Auto) 15.2 L [place] % (Auto) 8.8 Eos % (Auto) 2.8 Baso % (Auto) 0.3 Absolute Neuts (auto) 5.4 Absolute Lymphs (auto) 1.14 Total Counted Not Reportable ESR 26 Sodium 140 Potassium 4.0 Chloride 106 Carbon Dioxide 27.0 Anion Gap 7 BUN 14 Creatinine 0.86 Estim Creat Clear Calc 41.26 Est GFR (MDRD) Af Amer 81 Est GFR (MDRD) Non-Af 67 BUN/Creatinine Ratio 16.2 Glucose 88 Calcium 9.1 C-React Prot Ext Range 13.70 H 09/17/17 09/17/17 05:45 05:45 WBC 6.6 RBC 3.01 L Hgb 9.4 L Hct 30.1 L MCV 100.0 H MCH 31.2 MCHC 31.2 L RDW 13.0 RDW Differential 46.3 H Plt Count 122 L MPV 10.8 Immature Gran % (Auto) Neut % (Auto) Lymph % (Auto) [place] % (Auto) Eos % (Auto) Baso % (Auto) Absolute Neuts (auto) Absolute Lymphs (auto) Total Counted ESR Sodium 141 Potassium 4.0 Chloride 107 Carbon Dioxide 28.0 Anion Gap 6 BUN 15 Creatinine 0.81 Estim Creat Clear Calc 43.81 Est GFR (MDRD) Af Amer 88 Est GFR (MDRD) Non-Af 73 BUN/Creatinine Ratio 18.6 Glucose 94 Calcium 8.3 L C-React Prot Ext Range Medical Necessity - Tobacco Use Smoking Status: Never smoker Tobacco Use: Non-smoker Assessment/Plan 1. S/P irrigation debridement left total hip replacement with acetabular liner and femoral head revision POD #1 2. Continue Pain Medications: Tylenol and tramadol 3. DVT Prophylaxis: Aspirin 325 mg twice daily 4. PT/OT: Weightbearing as tolerated 5. H & H: 9.4/30.1, asymptomatic 6. Encouraged Incentive Spirometry 7. Consult for infectious disease: Definitive antibiotic plan will be determined following cultures, appreciate infectious disease input 8. Continue postoperative medical management per medicine: She with significant medical history consisting of hypertension, coronary artery disease , ischemic cardiomyopathy, history of heart bypass and pacemaker, dementia, anemia, history of stroke, history of atrial fibrillation, and neuropathy. 9. Disposition: Plan will be to follow cultures and get definitive antibiotic regimen with input of infectious disease.
--- NOTE | 2017-09-17 10:28 | PCM.HP.ID ---
Problem List (1) Surgical site infection Status: Acute Reason for Consult: skin infection Consulted by: Dr. Parr History of Present Illness: The patient is a 82 year old F with L hip replacement 07/21/17. Had no pain post-op and incision healed well until developed a blood blister over the site a few days ago. No known trauma. It popped and she had some redness and swelling. No fever or chills. No recent abx prior to admission. Taken to OR by Dr. Parr 09/16, and only superficial involvement seen. Cxs sent, abx started, and poly exchange done. This AM feeling ok, no n/v/d. Full ROS performed and neg except as noted above. - Medical History Past Medical History (Chronic Problems): Chronic Problems (Last Updated 06/23/17 @ 17:11 by Too Cote [employer]GER-C) Ischemic cardiomyopathy (Chronic) Paroxysmal atrial fibrillation (Chronic) 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) Hyperthyroidism (Chronic) Hypokalemia (Chronic) Atherosclerotic heart disease of [place] coronary artery without angina pectoris (Chronic) CABG x1 RANDLE-LAD x/Aortic Valve Replacement Left bundle-branch block (Chronic) Nonrheumatic aortic valve stenosis (Chronic) HTN (hypertension) (Chronic) Other chest pain (Chronic) Presence of aortocoronary bypass graft (Chronic) Dyspnea on exertion (Chronic) Fatigue (Chronic) Chronic pulmonary heart disease (Chronic) CVA (cerebral infarction) (Chronic) Hyperlipidemia (Chronic) Paroxysmal ventricular tachycardia (Chronic) HTN (hypertension) (Chronic) Hypothyroidism associated with surgical procedure (Chronic) had a subtotal thyroidectomy for goiter Hemorrhoids (Chronic) Restless leg syndrome (Chronic) TIA (transient ischemic attack) (Chronic) multiple History of aortic valve replacement with bioprosthetic valve (Chronic) Allergies/Adverse Reactions: Allergies adhesive Allergy (Verified 07/06/17 14:37) Unknown donepezil [Donepezil] Allergy (Verified 07/06/17 14:37) Unknown nitroglycerin Allergy (Verified 07/06/17 14:37) Unknown oxycodone HCl [From Percocet] Allergy (Verified 07/06/17 14:37) Unknown phenobarbital Allergy (Verified 07/06/17 14:37) Unknown tolmetin sodium [From Tolectin] Allergy (Verified 07/06/17 14:37) Unknown venlafaxine Allergy (Verified 07/06/17 14:37) Unknown nitropatch Allergy (Uncoded 07/06/17 14:37) unknown Home Medications: Ambulatory Orders Medication Instructions Recorded Aspirin [Aspirin, Baby] 81 mg PO DAILY@0800 04/09/13 Quinapril HCl [Accupril] 40 mg PO DAILY 07/01/13 Magnesium Oxide [Mag-Ox 400] 400 mg PO DAILY 09/17/15 Nitroglycerin [Nitrostat] 0.4 mg SUBLINGUAL Q5M PRN 09/20/15 coenzyme Q10 200 mg capsule 200 mg PO DAILY 05/05/17 gabapentin 100 mg capsule 200 mg PO BID 05/05/17 esomeprazole magnesium 40 mg 40 mg PO DAILY cap 05/07/17 capsule,delayed release melatonin 3 mg tablet 3 mg PO HS PRN 05/07/17 amlodipine 5 mg tablet 5 mg PO DAILY 06/23/17 atorvastatin 40 mg tablet 20 mg PO QHS tab 06/23/17 furosemide 40 mg tablet 40 mg PO DAILY 06/23/17 Carvedilol [Coreg (Beta Gene)] 25 mg PO BID 07/06/17 Cholecalciferol (Vitamin D3) 1,000 unit PO DAILY 07/06/17 [Vitamin D3] Oxycodone [Oxyir] 5 - 10 mg PO Q4H PRN PRN 7 Days 07/24/17 #80 tab Rivaroxaban [Xarelto] 10 mg PO DAILY@0600 #10 tab 07/24/17 Senna/Docusate Sodium [Senokot-S] 2 tab PO BID #20 tab 07/24/17 Acetaminophen [Tylenol] 1,000 mg PO Q8 09/16/17 traMADol [Ultram (G)] 50 mg PO Q6H PRN PRN 09/16/17 - Social History SMOKING STATUS:: Former smoker Vital Signs Temp Pulse Resp BP Pulse Ox 98.2 F 60 16 142/88 H 97 09/17/17 02:47 09/17/17 02:47 09/17/17 02:47 09/17/17 02:47 09/17/17 05:00 Oxygen Flow Rate (L/min) 2 Oxygen Delivery Method Nasal Cannula Weight: 76.2 kg Body Mass Index (BMI) 30.7 Finger Stick Blood Glucose 156 Laboratory Tests Past 24 Hrs 09/16/17 09/16/17 09/16/17 13:00 13:00 13:00 WBC 7.5 RBC 3.80 L Hgb 11.9 L Hct 37.6 MCV 98.9 MCH 31.3 MCHC 31.6 L RDW 13.5 RDW Differential 47.7 H Plt Count 166 MPV 10.5 Immature Gran % (Auto) 0.100 Neut % (Auto) 72.8 H Lymph % (Auto) 15.2 L [place] % (Auto) 8.8 Eos % (Auto) 2.8 Baso % (Auto) 0.3 Absolute Neuts (auto) 5.4 Absolute Lymphs (auto) 1.14 Total Counted Not Reportable ESR 26 Sodium 140 Potassium 4.0 Chloride 106 Carbon Dioxide 27.0 Anion Gap 7 BUN 14 Creatinine 0.86 Estim Creat Clear Calc 41.26 Est GFR (MDRD) Af Amer 81 Est GFR (MDRD) Non-Af 67 BUN/Creatinine Ratio 16.2 Glucose 88 Calcium 9.1 C-React Prot Ext Range 13.70 H 09/17/17 09/17/17 05:45 05:45 WBC 6.6 RBC 3.01 L Hgb 9.4 L Hct 30.1 L MCV 100.0 H MCH 31.2 MCHC 31.2 L RDW 13.0 RDW Differential 46.3 H Plt Count 122 L MPV 10.8 Immature Gran % (Auto) Neut % (Auto) Lymph % (Auto) [place] % (Auto) Eos % (Auto) Baso % (Auto) Absolute Neuts (auto) Absolute Lymphs (auto) Total Counted ESR Sodium 141 Potassium 4.0 Chloride 107 Carbon Dioxide 28.0 Anion Gap 6 BUN 15 Creatinine 0.81 Estim Creat Clear Calc 43.81 Est GFR (MDRD) Af Amer 88 Est GFR (MDRD) Non-Af 73 BUN/Creatinine Ratio 18.6 Glucose 94 Calcium 8.3 L C-React Prot Ext Range - Other Studies Radiology: [] reviewed Other Studies: [] Route of nutrition/ use of supplements: [] Nutritional Intake: [] IV Site: [] Yang Catheter: [] - Physical Exam General: Alert, Oriented x3, Cooperative HEENT: Atraumatic, PERRLA, EOMI Neck: Supple, No Nodes Lungs: Clear to auscultation, Normal air movement Cardiovascular: Regular rate, Regular Rhythm Abdomen: Soft, Non Tender, Non-Distended Skin: Incision - L hip bandaged IV Site: Peripheral, without redness Neurological: Cranial nerves II-XII grossly intact - Assessment/Plan Antibiotics: [] Assessment/Plan: [] Superficial surgical site infection s/p L total hip replacement 07/21/17 - now s/p debridement 09/[address] Parr. No deeper involvement seen, cxs pending. Cont vanc, cefazolin. Plan will be for short course of po abx at discharge as long as cxs are ok. Thank you, will follow, d/w Dr. Parr.
--- NOTE | 2017-09-17 10:33 | CON.PCM_ITS ---
Problem List (1) Surgical site infection Status: Acute Reason for Consult: skin infection Consulted by: Dr. Parr History of Present Illness: The patient is a 82 year old F with L hip replacement 07/21/17. Had no pain post -op and incision healed well until developed a blood blister over the site a few days ago. No known trauma. It popped and she had some redness and swelling. No fever or chills. No recent abx prior to admission. Taken to OR by Dr. Parr 09/16, and only superficial involvement seen. Cxs sent, abx started , and poly exchange done. This AM feeling ok, no n/v/d. Full ROS performed and neg except as noted above. 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) CABG x1 RANDLE-LAD x/Aortic Valve Replacement Left bundle-branch block (Chronic) Nonrheumatic aortic valve stenosis (Chronic) HTN (hypertension) (Chronic) Other chest pain (Chronic) Presence of aortocoronary bypass graft (Chronic) Dyspnea on exertion (Chronic) Fatigue (Chronic) Chronic pulmonary heart disease (Chronic) CVA (cerebral infarction) (Chronic) Hyperlipidemia (Chronic) Paroxysmal ventricular tachycardia (Chronic) HTN (hypertension) (Chronic) Hypothyroidism associated with surgical procedure (Chronic) had a subtotal thyroidectomy for goiter Hemorrhoids (Chronic) Restless leg syndrome (Chronic) TIA (transient ischemic attack) (Chronic) multiple History of aortic valve replacement with bioprosthetic valve (Chronic) Allergies/Adverse Reactions: Allergies adhesive Allergy (Verified 07/06/17 14:37) Unknown donepezil [Donepezil] Allergy (Verified 07/06/17 14:37) Unknown nitroglycerin Allergy (Verified 07/06/17 14:37) Unknown oxycodone HCl [From Percocet] Allergy (Verified 07/06/17 14:37) Unknown phenobarbital Allergy (Verified 07/06/17 14:37) Unknown tolmetin sodium [From Tolectin] Allergy (Verified 07/06/17 14:37) Unknown venlafaxine Allergy (Verified 07/06/17 14:37) Unknown nitropatch Allergy (Uncoded 07/06/17 14:37) unknown Home Medications: Ambulatory Orders Medication Instructions Recorded Aspirin [Aspirin, Baby] 81 mg PO DAILY@0800 04/09/13 Quinapril HCl [Accupril] 40 mg PO DAILY 07/01/13 Magnesium Oxide [Mag-Ox 400] 400 mg PO DAILY 09/17/15 Nitroglycerin [Nitrostat] 0.4 mg SUBLINGUAL Q5M PRN 09/20/15 coenzyme Q10 200 mg capsule 200 mg PO DAILY 05/05/17 gabapentin 100 mg capsule 200 mg PO BID 05/05/17 esomeprazole magnesium 40 mg 40 mg PO DAILY cap 05/07/17 capsule,delayed release melatonin 3 mg tablet 3 mg PO HS PRN 05/07/17 amlodipine 5 mg tablet 5 mg PO DAILY 06/23/17 atorvastatin 40 mg tablet 20 mg PO QHS tab 06/23/17 furosemide 40 mg tablet 40 mg PO DAILY 06/23/17 Carvedilol [Coreg (Beta Gene)] 25 mg PO BID 07/06/17 Cholecalciferol (Vitamin D3) 1,000 unit PO DAILY 07/06/17 [Vitamin D3] Oxycodone [Oxyir] 5 - 10 mg PO Q4H PRN PRN 7 Days 07/24/17 #80 tab Rivaroxaban [Xarelto] 10 mg PO DAILY@0600 #10 tab 07/24/17 Senna/Docusate Sodium [Senokot-S] 2 tab PO BID #20 tab 07/24/17 Acetaminophen [Tylenol] 1,000 mg PO Q8 09/16/17 traMADol [Ultram (G)] 50 mg PO Q6H PRN PRN 09/16/17 - Social History SMOKING STATUS:: Former smoker Vital Signs Temp Pulse Resp BP Pulse Ox 98.2 F 60 16 142/88 H 97 09/17/17 02:47 09/17/17 02:47 09/17/17 02:47 09/17/17 02:47 09/17/17 05:00 Oxygen Flow Rate (L/min) 2 Oxygen Delivery Method Nasal Cannula Weight: 76.2 kg Body Mass Index (BMI) 30.7 Finger Stick Blood Glucose 156 Laboratory Tests Past 24 Hrs 09/16/17 09/16/17 09/16/17 13:00 13:00 13:00 WBC 7.5 RBC 3.80 L Hgb 11.9 L Hct 37.6 MCV 98.9 MCH 31.3 MCHC 31.6 L RDW 13.5 RDW Differential 47.7 H Plt Count 166 MPV 10.5 Immature Gran % (Auto) 0.100 Neut % (Auto) 72.8 H Lymph % (Auto) 15.2 L Mcintosh % (Auto) 8.8 Eos % (Auto) 2.8 Baso % (Auto) 0.3 Absolute Neuts (auto) 5.4 Absolute Lymphs (auto) 1.14 Total Counted Not Reportable ESR 26 Sodium 140 Potassium 4.0 Chloride 106 Carbon Dioxide 27.0 Anion Gap 7 BUN 14 Creatinine 0.86 Estim Creat Clear Calc 41.26 Est GFR (MDRD) Af Amer 81 Est GFR (MDRD) Non-Af 67 BUN/Creatinine Ratio 16.2 Glucose 88 Calcium 9.1 C-React Prot Ext Range 13.70 H 09/17/17 09/17/17 05:45 05:45 WBC 6.6 RBC 3.01 L Hgb 9.4 L Hct 30.1 L MCV 100.0 H MCH 31.2 MCHC 31.2 L RDW 13.0 RDW Differential 46.3 H Plt Count 122 L MPV 10.8 Immature Gran % (Auto) Neut % (Auto) Lymph % (Auto) Mcintosh % (Auto) Eos % (Auto) Baso % (Auto) Absolute Neuts (auto) Absolute Lymphs (auto) Total Counted ESR Sodium 141 Potassium 4.0 Chloride 107 Carbon Dioxide 28.0 Anion Gap 6 BUN 15 Creatinine 0.81 Estim Creat Clear Calc 43.81 Est GFR (MDRD) Af Amer 88 Est GFR (MDRD) Non-Af 73 BUN/Creatinine Ratio 18.6 Glucose 94 Calcium 8.3 L C-React Prot Ext Range - Other Studies Radiology: [] reviewed Other Studies: [] Route of nutrition/ use of supplements: [] Nutritional Intake: [] IV Site: [] Yang Catheter: [] - Physical Exam General: Alert, Oriented x3, Cooperative HEENT: Atraumatic, PERRLA, EOMI Neck: Supple, No Nodes Lungs: Clear to auscultation, Normal air movement Cardiovascular: Regular rate, Regular Rhythm Abdomen: Soft, Non Tender, Non-Distended Skin: Incision - L hip bandaged IV Site: Peripheral, without redness Neurological: Cranial nerves II-XII grossly intact - Assessment/Plan Antibiotics: [] Assessment/Plan: [] Superficial surgical site infection s/p L total hip replacement 07/21/17 - now s/ p debridement 09/[address] Parr. No deeper involvement seen, cxs pending. Cont vanc, cefazolin. Plan will be for short course of po abx at discharge as long as cxs are ok. Thank you, will follow, d/w Dr. Parr.
[2017-09-17 10:44] VITALS: BP 132/55; PULSE 60; RESP 16; TEMP 36.9; O2SAT 97
[2017-09-17] MEDS: Famotidine 20 MG Tablet PO ×2 (10:52→21:22)
[2017-09-17] MEDS: Senna/Docusate Sodium 1 Tablet 2 TABLET PO ×2 (10:52→21:22)
[2017-09-17] MEDS: Furosemide 40 MG Tablet PO (10:54)
[2017-09-17] MEDS: Carvedilol 25 MG Tablet PO ×2 (10:54→21:22)
[2017-09-17] MEDS: Magnesium Oxide 400 MG Tablet PO (10:54)
[2017-09-17] MEDS: amLODIPine 5 MG Tablet PO (10:55)
[2017-09-17] MEDS: Gabapentin 100 MG Capsule PO (10:55)
[2017-09-17] MEDS: Lisinopril 40 MG Tablet PO (10:59)
[2017-09-17] MEDS: Fluconazole 100 MG Tablet PO (14:16)
--- NOTE | 2017-09-17 14:23 | NURSING ---
wound photo: left hip
[2017-09-17 16:40] VITALS: BP 118/48; PULSE 59; RESP 16; TEMP 36.9; O2SAT 98
[2017-09-17] MEDS: traMADol 50 MG Tablet PO (16:44)
--- NOTE | 2017-09-17 17:20 | CHAPLAIN ---
Type of Pastoral Visit _x__ Initial Visit ___ Follow-up Visit ___ On-call Visit ___ General Patient Visit ___ Spiritual Assessment ___ Family Conference ___ Bereavement ___ Rapid Response ___ Code Blue ___ Other (describe below) Pastoral Care Referral From _x__ Patient ___ Family ___ Nurse ___ Physician ___ Drying Machine Receiver ___ Barrel Repairer ___ Other (describe below) Sacrament/Intervention _x__ Active listening ___ Anointing ___ Moravian ___ Bereavement ___ Communion _x__ Yaneth exploration ___ _x__ Life review _x__ Prayer ___ Reconciliation ___ Sacrament of Sick _x__ Supportive presence ___ Wedding ___ Other (describe below) Pastoral Comments
--- NOTE | 2017-09-17 17:30 | CASEMGMT ---
Social Work Note SW in to see pt to complete initial assessment and to determine discharge needs. SW introduced self and role at [facility]. Akbar CONWAY informed this worker that pt went to [facility] in the past and that pt will most likely need placement at discharge. SW informed Ray that pt will need to be here till Thursday to meet the three midnight stay requirement. Ray states understanding. SW informed pt that the doctor's are thinking she may need placement at discharge. Pt was receptive to this and is agreeable to placement. Pt states that she would like to go back to [facility]. SW informed pt that this worker will make the referral and that pt will require three midnight stays for her Medicare to pay for placement. Pt states understanding. Pt denied additional needs or concerns at this time. TRACIE faxed referral to Zulema at [facility]. Zulema called this worker and can accept pt. TRACIE informed Zulema that pt will be able to discharge Thursday as her three midnight stays will be completed. Zulema states understanding. TRACIE will continue to provide updated clinicals to Zulema at [facility] when available. TRACIE will continue to follow to assist with discharge planning. Plan: Discharge to [facility] Thursday Nissa Lara SHORTHAND TEACHER, CONTACT CENTER SPECIALIST
[2017-09-17 20:00] VITALS: BP 142/61; PULSE 66; RESP 16; TEMP 37.2; O2SAT 100
[2017-09-17] MEDS: Atorvastatin Calcium 20 MG Tablet PO (21:22)
[2017-09-17] MEDS: Gabapentin 100 MG Capsule 200 MG PO (21:22)
[2017-09-18 02:00] VITALS: BP 119/53; PULSE 63; RESP 18; TEMP 37; O2SAT 95
[2017-09-18] MEDS: Cefazolin 1 GM/50 ML BAG IV ×3 (03:48→18:22)
[2017-09-18] MEDS: Acetaminophen 500 MG Tablet 1000 MG PO ×3 (06:33→21:28)
--- NOTE | 2017-09-18 07:15 | PCM.PN.ORT ---
Patient Problems: Active and Suspected Problems (Last Updated 06/23/17 @ 16:16 by Susannah Brooks) Surgical site infection (Acute) Subjective: Patient resting in bed upon examination. Patient denies any chest pain, shortness of breath, dizziness, lightheadedness, or N/V. No adverse events over night. Patient did have wound vac placed yesterday due to drainage. Plan is for discharge tomorrow to [facility]. Objective: Vital signs stable and afebrile. Patient is able to plantarflex and dorsiflex actively. Sensation is intact to light touch to saphenous, sural, superficial and deep peroneal, and tibial distribution. Wound VAC in place, minimal output in canister Negative Homans bilaterally, negative signs and symptoms of DVT. - Physical Exam Vital Signs Temp Pulse Resp BP Pulse Ox 98.6 F 63 18 119/53 L 95 09/18/17 02:00 09/18/17 02:00 09/18/17 02:00 09/18/17 02:00 09/18/17 02:00 Oxygen Flow Rate (L/min) 2 Oxygen Delivery Method Room Air Weight: 76.2 kg Body Mass Index (BMI) 30.7 Finger Stick Blood Glucose 156 Intake and Output for Last 24 Hours 09/16/17 09/17/17 09/18/17 23:59 23:59 23:59 Intake Total 2028 3680 / 3680 1076 / 1076 Output Total 700 / 700 700 / 700 Balance 2028 2980 / 2980 376 / 376 Microbiology Past 72 Hours 09/16/17 13:45 Nasal Screen MRSA/MSSA (BETTY) - Final Swab (Method) 09/16/17 20:01 Gram Stain - Final Tissue - Other 09/16/17 20:01 Gram Stain - Final Tissue - Other 09/16/17 20:01 Gram Stain - Final Tissue - Other 09/16/17 20:01 Gram Stain - Final Tissue - Other Medical Necessity - Tobacco Use Smoking Status: Never smoker Tobacco Use: Non-smoker Assessment/Plan Active and Suspected Problems (Last Updated 06/23/17 @ 16:16 by Susannah Brooks) Surgical site infection (Acute) 1. S/P irrigation debridement left total hip replacement with acetabular liner and femoral head revision POD #2 2. Continue Pain Medications: Tylenol and tramadol 3. DVT Prophylaxis: Aspirin 325 mg twice daily 4. PT/OT: Weightbearing as tolerated 5. H & H: Labs not drawn this morning, yesterday 9.4/30.1, currently asymptomatic 6. Encouraged Incentive Spirometry 7. Consult for infectious disease: Definitive antibiotic plan will be determined following cultures, appreciate infectious disease input. Patient currently on vancomycin and cefazolin. Plan will be for p.o. antibiotic upon discharge depending upon cultures. 8. Continue postoperative medical management per medicine: She with significant medical history consisting of hypertension, coronary artery disease, ischemic cardiomyopathy, history of heart bypass and pacemaker, dementia, anemia, history of stroke, history of atrial fibrillation, and neuropathy. 9. Disposition: Plan will be for discharge to snf facility tomorrow. We will continue with wound VAC with changes on Thursday/Thursday/Thursday.
--- NOTE | 2017-09-18 07:19 | PN.ORTHO_ITS ---
Patient Problems: Active and Suspected Problems (Last Updated 06/23/17 @ 16:16 by Susannah Brooks) Surgical site infection (Acute) Subjective: Patient resting in bed upon examination. Patient denies any chest pain, shortness of breath, dizziness, lightheadedness, or N/V. No adverse events over night. Patient did have wound vac placed yesterday due to drainage. Plan is for discharge tomorrow to [facility]. Objective: Vital signs stable and afebrile. Patient is able to plantarflex and dorsiflex actively. Sensation is intact to light touch to saphenous, sural, superficial and deep peroneal, and tibial distribution. Wound VAC in place, minimal output in canister Negative Homans bilaterally, negative signs and symptoms of DVT. - Physical Exam Vital Signs Temp Pulse Resp BP Pulse Ox 98.6 F 63 18 119/53 L 95 09/18/17 02:00 09/18/17 02:00 09/18/17 02:00 09/18/17 02:00 09/18/17 02:00 Oxygen Flow Rate (L/min) 2 Oxygen Delivery Method Room Air Weight: 76.2 kg Body Mass Index (BMI) 30.7 Finger Stick Blood Glucose 156 Intake and Output for Last 24 Hours 09/16/17 09/17/17 09/18/17 23:59 23:59 23:59 Intake Total 2028 3680 / 3680 1076 / 1076 Output Total 700 / 700 700 / 700 Balance 2028 2980 / 2980 376 / 376 Microbiology Past 72 Hours 09/16/17 13:45 Nasal Screen MRSA/MSSA (BETTY) - Final Swab (Method) 09/16/17 20:01 Gram Stain - Final Tissue - Other 09/16/17 20:01 Gram Stain - Final Tissue - Other 09/16/17 20:01 Gram Stain - Final Tissue - Other 09/16/17 20:01 Gram Stain - Final Tissue - Other Medical Necessity - Tobacco Use Smoking Status: Never smoker Tobacco Use: Non-smoker Assessment/Plan Active and Suspected Problems (Last Updated 06/23/17 @ 16:16 by Susannah Brooks) Surgical site infection (Acute) 1. S/P irrigation debridement left total hip replacement with acetabular liner and femoral head revision POD #2 2. Continue Pain Medications: Tylenol and tramadol 3. DVT Prophylaxis: Aspirin 325 mg twice daily 4. PT/OT: Weightbearing as tolerated 5. H & H: Labs not drawn this morning, yesterday 9.4/30.1, currently asymptomatic 6. Encouraged Incentive Spirometry 7. Consult for infectious disease: Definitive antibiotic plan will be determined following cultures, appreciate infectious disease input. Patient currently on vancomycin and cefazolin. Plan will be for p.o. antibiotic upon discharge depending upon cultures. 8. Continue postoperative medical management per medicine: She with significant medical history consisting of hypertension, coronary artery disease , ischemic cardiomyopathy, history of heart bypass and pacemaker, dementia, anemia, history of stroke, history of atrial fibrillation, and neuropathy. 9. Disposition: Plan will be for discharge to shelter facility tomorrow. We will continue with wound VAC with changes on Thursday/Thursday/ Thursday.
[2017-09-18 07:26] LABS: Hematocrit 29.7 % (37-47); Hemoglobin 9.5 g/dl (12.0-15.0); Mean Platelet Vol. 10.7 fl (6.2-12.0); Platelet Count 98 K/mm3 (150-450); RBC Distribution Width CV 13.1 % (11.6-14.6); Red Blood Count 2.97 M/mm3 (4.2-5.4); White Blood Count 4.8 K/mm3 (4.4-11.0)
[2017-09-18 07:28] LABS: Scan Indicated on CBC? Y/N NO
[2017-09-18 08:13] LABS: Vancomycin, Trough Level 16.7 ug/mL (5.0-15.0)
--- NOTE | 2017-09-18 08:22 | PHA.PHARE_ITS ---
Consult Pharmacy has been consulted to manage selected antiobiotic: Vancomycin Type of Consult: Follow-up Suspected Infection: Other Prior Doses of Antibiotics Received/Current Regimen: Medications Vancomycin HCl 750 mg/ Sodium (Chloride) 265 mls @ 265 mls/hr IV Q12H WENDY Last Admin: 09/17/17 20:25 Dose: 265 mls/hr Labs: Sodium 141 mmol/L (136-145) 09/17/17 05:45 Potassium 4.0 mmol/L (3.5-5.1) 09/17/17 05:45 Chloride 107 mmol/L (98-107) 09/17/17 05:45 Carbon Dioxide 28.0 mmol/L (21.0-32.0) 09/17/17 05:45 Anion Gap 6 (5-15) 09/17/17 05:45 BUN 15 mg/dL (7-18) 09/17/17 05:45 Creatinine 0.81 mg/dL (0.55-1.02) 09/17/17 05:45 Est GFR (MDRD) Af Amer 88 mL/min (>60) 09/17/17 05:45 Est GFR (MDRD) Non-Af 73 mL/min (>60) 09/17/17 05:45 BUN/Creatinine Ratio 18.6 RATIO (10-20) 09/17/17 05:45 Glucose 94 mg/dL (74-106) 09/17/17 05:45 Vancomycin Trough 16.7 ug/mL (5.0-15.0) H 09/18/17 07:10 Microbiology: Microbiology 09/16/17 13:45 Swab (Method) Nasal Screen MRSA/MSSA (BETTY) - Final 09/16/17 20:01 Tissue - Other Gram Stain - Final 09/16/17 20:01 Tissue - Other Gram Stain - Final 09/16/17 20:01 Tissue - Other Gram Stain - Final 09/16/17 20:01 Tissue - Other Gram Stain - Final Weight used for dosin kg Estimated Creatinine Clearance: 43 mL/min Goal Trough: 15-20 mcg/mL Pharmacy Plan for Drug Dosing: Vancomycin trough within goal range. Continue as ordered. Considering patient's age, recommend to re-check if still active in 48 hours when closer to steady- state. Pharmacy Service will continue to monitor and adjust dosing as required. Follow-Up Labs: Trough Vancomycin - 09/20/17 @ 0800
--- NOTE | 2017-09-18 09:23 | NURSING ---
wound VAC dressing in place to the left hip incision. there is a small amount of serosanguineous drainage noted in the canister. Pt denies needs at this time.
[2017-09-18] MEDS: traMADol 50 MG Tablet PO (09:25)
[2017-09-18] MEDS: Fluconazole 100 MG Tablet PO (09:26)
[2017-09-18] MEDS: Carvedilol 25 MG Tablet PO ×2 (09:26→21:28)
[2017-09-18] MEDS: Aspirin 325 MG Tablet PO ×2 (09:26→18:21)
[2017-09-18] MEDS: Furosemide 40 MG Tablet PO (09:26)
[2017-09-18] MEDS: Famotidine 20 MG Tablet PO ×2 (09:27→21:30)
[2017-09-18] MEDS: Senna/Docusate Sodium 1 Tablet 2 TABLET PO ×2 (09:27→21:28)
[2017-09-18] MEDS: Magnesium Oxide 400 MG Tablet PO (09:27)
[2017-09-18] MEDS: amLODIPine 5 MG Tablet PO (09:27)
[2017-09-18] MEDS: Lisinopril 40 MG Tablet PO (09:28)
[2017-09-18 09:51] VITALS: BP 155/41; PULSE 65; RESP 16; TEMP 36.9; O2SAT 95
--- NOTE | 2017-09-18 11:28 | CASEMGMT ---
Addendum entered by Nissa Lara 09/18/17 12:38: [facility]escent 7000 completed in [facility] Original Note: Social Work Note SW updated pt that [facility] can accept and that pt can discharge tomorrow to [facility] if medically cleared. Pt states understanding. SW asked pt if she would like this worker to call family for her to update them. Pt states that her daughter Teresa will be coming in today and that she will update her. SW informed pt that transportation can be set up for her tomorrow and the hospital can updated Teresa with transportation time tomorrow. Pt states understanding. Pt denied additional needs or concerns at this time. Green sheet on chart. Plan: Discharge to [facility] tomorrow Nissa Lara CHILD CARE PROVIDER, SHINGLE TRIMMER
[2017-09-18] MEDS: Gabapentin 100 MG Capsule PO (12:03)
--- NOTE | 2017-09-18 12:21 | PN_ITS ---
Patient Problems: Active and Suspected Problems (Last Updated 06/23/17 @ 16:16 by Susannah Brooks) Surgical site infection (Acute) Subjective: Patient is an 82-year-old female with a past medical history of coronary artery disease (status post CABG), valvular heart disease (status post aVR), chronic systolic congestive heart failure/ischemic cardiomyopathy, history of AICD, hypertension, hyperlipidemia, hyperthyroidism (status post subtotal thyroidectomy for goiter), history of CVA/TIAs, dementia with behavioral disturbance, atrial fibrillation, left total hip replacement on 07/21/2017, presented to [facility] on 09/16/2017 for erythema and drainage from the proximal end of the incision. ESR was 26 and the CRP was 13.7. The white blood cell count was 7.5 with 73% neutrophils. She was admitted to the hospital by Dr. Parr. The hospitalist service was consulted for multiple medical comorbidities/management. She went to surgery irrigation of the anus track and also the joint. The infection was superficial and did not track into the fascia or deep spaces. It did not track into the joint. She had an acetabular liner and femoral head revision. She has been seen by Dr. Mcpherson and is currently on Ancef and vancomycin. Nasal screen negative for MRSA/MSSA. All cultures taken at the time of surgery currently have no growth. There were no white blood cells and no organisms on any of the gram stains. Is been afebrile since admission. She was started on fluconazole for intertrigo of the left groin on 09/17/2017. Could not be applied due to the presence of the dressing. Vital signs are stable and she is 95-100% saturated on room air. She has no complaints today She did well with PT today per the therapist. denies pain at the present time. No nausea Objective: - Physical Exam General: Alert, Cooperative, No apparent distress, Well developed, Well nourished HEENT: Atraumatic, PERRLA, EOMI Oral: Moist Mucosa, No Gingival or Mucosal Lesions/ Ulcerations Neck: Supple, No JVD Lungs: Clear to auscultation, No rhonchi, No wheeze, No rales Cardiovascular: Regular rate, Regular Rhythm, Normal S1, Normal S2, No rub noted , No Gallop Abdomen: Bowel Sounds Present, Soft, Non Tender, Non-Distended Extremities: No clubbing, No cyanosis, Edema - of the left upper thigh Skin: - - she has intertrigo beneath the dressing in the left groin Musculoskeletal: Arthritic Changes Neurological: Cranial nerves II-XII grossly intact, Neuro grossly intact Psych/Mental Status: Normal Affect, Appropriate - Physical Exam Vital Signs Temp Pulse Resp BP Pulse Ox 98.5 F 65 16 155/41 H 95 09/18/17 09:51 09/18/17 09:51 09/18/17 09:51 09/18/17 09:51 09/18/17 09:51 Oxygen Flow Rate (L/min) 2 Oxygen Delivery Method Room Air Weight: 167 lb 15.876 oz Body Mass Index (BMI) 30.7 Finger Stick Blood Glucose 156 Intake and Output for Last 24 Hours 09/16/17 09/17/17 09/18/17 23:59 23:59 23:59 Intake Total 2028 3680 / 3680 1306 / 1306 Output Total 700 / 700 1250 / 1250 Balance 2028 2980 / 2980 56 / 56 Microbiology Past 72 Hours 09/16/17 20:01 Gram Stain - Final Tissue - Other Wound Culture - Preliminary No growth-Final to follow 09/16/17 20:01 Gram Stain - Final Tissue - Other Wound Culture - Preliminary No growth-Final to follow 09/16/17 20:01 Gram Stain - Final Tissue - Other Wound Culture - Preliminary No growth-Final to follow 09/16/17 20:01 Gram Stain - Final Tissue - Other Wound Culture - Preliminary No growth-Final to follow 09/16/17 13:45 Nasal Screen MRSA/MSSA (BETTY) - Final Swab (Method) Laboratory Tests Past 24 Hrs 09/18/17 09/18/17 07:10 07:10 WBC 4.8 RBC 2.97 L Hgb 9.5 L Hct 29.7 L MCV 100.0 H MCH 32.0 MCHC 32.0 RDW 13.1 RDW Differential 47.0 H Plt Count 98 L MPV 10.7 Vancomycin Trough 16.7 H Medical Necessity - Tobacco Use Smoking Status: Never smoker Tobacco Use: Non-smoker Assessment/Plan Active and Suspected Problems (Last Updated 06/23/17 @ 16:16 by Susannah Brooks) Surgical site infection (Acute) Vancomycin and Ancef day #1 Impressions 1. superficial left groin after recent L total hip - S/P irrigation with new acetabular liner and femoral head revision 2. CAD 3. hx of CABG 4. - S/P bioprosthetic AVR 5. Ischemic cardiomyopathy with chronic systolic congestive heart failure 6. History of AICD/pacemaker 7. Hypertension 8. Hyperlipidemia 9. Hyperthyroidism history-status post subtotal thyroidectomy. TSH and T4 were normal in April 2017. Continue Ancef and vancomycin Discussed with Dr. Mcpherson. Patient will be chewable for discharge to [facility] tomorrow. She will need to go on 2 weeks of doxycycline and Keflex. finall wound Culture report is still pending. Code Visit Inpatient E&M: 71985 Subs Hosp L2
[2017-09-18] MEDS: Glucerna Shake 120 ML LIQUID PO (13:36)
[2017-09-18 14:00] VITALS: BP 111/56; PULSE 59; RESP 16; TEMP 36.9; O2SAT 100
--- NOTE | 2017-09-18 14:19 | CASEMGMT ---
Social Work Note TRACIE placed a call to pt's daughter Teresa to update her that pt is expected to discharge tomorrow to [facility]. SW informed Teresa that transportation will be set up for pt tomorrow and someone will let her know the time of transportation. Teresa states understanding and thanked this worker for calling. Plan: [facility] tomorrow Nissa Lara FERRY PILOT, RAND MAKER
--- NOTE | 2017-09-18 15:29 | PN.ID_ITS ---
Patient Problems: Active and Suspected Problems (Last Updated 06/23/17 @ 16:16 by Susannah Brooks) Surgical site infection (Acute) Subjective: Feeling well, no fever, no n/v/d. - Physical Exam General: Alert, Cooperative Lungs: Clear to auscultation, Normal air movement Cardiovascular: Regular rate, Regular Rhythm Abdomen: Soft, Non Tender, Non-Distended Skin: Ulcer/ Wound - L hip wound vac in place with no surrounding redness Vital Signs Temp Pulse Resp BP Pulse Ox 98.5 F 65 16 155/41 H 95 09/18/17 09:51 09/18/17 09:51 09/18/17 09:51 09/18/17 09:51 09/18/17 09:51 Oxygen Flow Rate (L/min) 2 Oxygen Delivery Method Room Air Weight: 76.2 kg Body Mass Index (BMI) 30.7 Finger Stick Blood Glucose 156 Intake and Output for Last 24 Hours 09/16/17 09/17/17 09/18/17 23:59 23:59 23:59 Intake Total 2028 3680 / 3680 1306 / 1306 Output Total 700 / 700 1250 / 1250 Balance 2028 2980 / 2980 56 / 56 Microbiology Past 72 Hours 09/16/17 20:01 Gram Stain - Final Tissue - Other Wound Culture - Preliminary No growth-Final to follow 09/16/17 20:01 Gram Stain - Final Tissue - Other Wound Culture - Preliminary No growth-Final to follow 09/16/17 20:01 Gram Stain - Final Tissue - Other Wound Culture - Preliminary No growth-Final to follow 09/16/17 20:01 Gram Stain - Final Tissue - Other Wound Culture - Preliminary No growth-Final to follow 09/16/17 13:45 Nasal Screen MRSA/MSSA (BETTY) - Final Swab (Method) Laboratory Tests Past 24 Hrs 09/18/17 09/18/17 07:10 07:10 WBC 4.8 RBC 2.97 L Hgb 9.5 L Hct 29.7 L MCV 100.0 H MCH 32.0 MCHC 32.0 RDW 13.1 RDW Differential 47.0 H Plt Count 98 L MPV 10.7 Vancomycin Trough 16.7 H Medical Necessity - Tobacco Use Smoking Status: Never smoker Tobacco Use: Non-smoker Route of nutrition/ use of supplements: [] Nutritional Intake: [] IV Site: [] Yang Catheter: [] - Assessment/Plan Antibiotics: [] Assessment/Plan: [] Superficial surgical site infection s/p L total hip replacement 07/21/17 - now s/ p debridement 09/[address] Parr. No deeper involvement seen, cxs neg so far. Cont vanc, cefazolin. Plan will be for 10 days of doxy 100mg bid and keflex 500mg tid at discharge. will follow, d/w hospitalist
[2017-09-18 19:57] VITALS: BP 95/72; PULSE 61; RESP 18; TEMP 37.1; O2SAT 100
[2017-09-18] MEDS: Atorvastatin Calcium 20 MG Tablet PO (21:28)
[2017-09-18] MEDS: Gabapentin 100 MG Capsule 200 MG PO (21:29)
[2017-09-19 02:13] VITALS: BP 123/41; PULSE 59; RESP 18; TEMP 36.7; O2SAT 97
[2017-09-19] MEDS: Cefazolin 1 GM/50 ML BAG IV ×2 (02:18→11:29)
[2017-09-19] MEDS: Acetaminophen 500 MG Tablet 1000 MG PO ×2 (06:01→13:11)
[2017-09-19 07:19] LABS: Hematocrit 29.3 % (37-47); Hemoglobin 9.2 g/dl (12.0-15.0); Mean Corp Hgb Conc 31.4 g/gl (32-36); Mean Corpuscular Volume 98.7 fL (81-99); Platelet Count 111 K/mm3 (150-450); RBC Distribution Width CV 13.6 % (11.6-14.6); RBC Distribution Width SD 49.2 fl (35.1-43.9); Red Blood Count 2.97 M/mm3 (4.2-5.4); White Blood Count 4.4 K/mm3 (4.4-11.0)
[2017-09-19 07:34] LABS: Scan Indicated on CBC? Y/N NO
--- NOTE | 2017-09-19 07:36 | PCM.PN.ORT ---
Patient Problems: Active and Suspected Problems (Last Updated 06/23/17 @ 16:16 by Susannah Brooks) Surgical site infection (Acute) Subjective: The patient was resting in bed upon examination. Patient denies any chest pain, shortness of breath, dizziness, lightheadedness, nausea or vomiting, or calf pain. Pain is controlled on medications. No adverse overnight events. Plan is for discharge to correction facility today. Patient will be going to [facility]. Wound VAC has been placed and the surrounding skin has continued to improve since surgery. No new drainage. Objective: Vital signs stable and afebrile. Patient is able to plantarflex and dorsiflex actively. Sensation is intact to light touch to saphenous, sural, superficial and deep peroneal, and tibial distribution. Wound VAC in place, minimal output in canister, this is been stable since yesterday. No new drainage in tubing. Surrounding skin continues to improve with resolving erythema that was present prior to surgery. Negative Homans bilaterally, negative signs and symptoms of DVT. - Physical Exam General: Alert, Oriented x3, Cooperative, No apparent distress Vital Signs Temp Pulse Resp BP Pulse Ox 98.0 F 59 L 18 123/41 H 97 09/19/17 02:13 09/19/17 02:13 09/19/17 02:13 09/19/17 02:13 09/19/17 02:13 Oxygen Flow Rate (L/min) 2 Oxygen Delivery Method Room Air Weight: 76.2 kg Body Mass Index (BMI) 30.7 Finger Stick Blood Glucose 156 Intake and Output for Last 24 Hours 09/17/17 09/18/17 09/19/17 23:59 23:59 23:59 Intake Total 3680 / 3680 1306 / 1306 128 / 128 Output Total 700 / 700 1250 / 1250 Balance 2980 / 2980 56 / 56 128 / 128 Microbiology Past 72 Hours 09/16/17 20:01 Gram Stain - Final Tissue - Other Wound Culture - Preliminary No growth-Final to follow 09/16/17 20:01 Gram Stain - Final Tissue - Other Wound Culture - Preliminary No growth-Final to follow 09/16/17 20:01 Gram Stain - Final Tissue - Other Wound Culture - Preliminary No growth-Final to follow 09/16/17 20:01 Gram Stain - Final Tissue - Other Wound Culture - Preliminary No growth-Final to follow 09/16/17 13:45 Nasal Screen MRSA/MSSA (BETTY) - Final Swab (Method) Laboratory Tests Past 24 Hrs 09/18/17 09/19/17 07:10 07:00 WBC 4.4 RBC 2.97 L Hgb 9.2 L Hct 29.3 L MCV 98.7 MCH 31.0 MCHC 31.4 L RDW 13.6 RDW Differential 49.2 H Plt Count 111 L MPV 11.0 Vancomycin Trough 16.7 H Medical Necessity - Tobacco Use Smoking Status: Never smoker Tobacco Use: Non-smoker Assessment/Plan Active and Suspected Problems (Last Updated 06/23/17 @ 16:16 by Susannah Brooks) Surgical site infection (Acute) 1. S/P irrigation debridement left total hip replacement with acetabular liner and femoral head revision POD #3 2. Continue Pain Medications: Tylenol and tramadol 3. DVT Prophylaxis: Aspirin 325 mg twice daily 4. PT/OT: Weightbearing as tolerated 5. H & H: Currently 9.2/29.3, asymptomatic 6. Encouraged Incentive Spirometry 7. Consult for infectious disease: Continue vancomycin and cefazolin while in hospital. Infectious disease recommends oral antibiotic consisting of doxycycline 100 mg twice daily and Keflex 500 mg 3 times daily at discharge for 10 days. 8. Continue postoperative medical management per medicine: She is with significant medical history consisting of hypertension, coronary artery disease, ischemic cardiomyopathy, history of heart bypass and pacemaker, dementia, anemia, history of stroke, history of atrial fibrillation, and neuropathy. 9. Disposition: Plan is for discharge today to correction facility. We will continue with wound VAC with changes on Thursday/Thursday/Thursday and will be okay to discontinue wound VAC if incision is dry and no drainage between dressing changes. Patient will follow-up for 2 week postoperative visit. Prescriptions are attached to chart.
--- NOTE | 2017-09-19 07:41 | PN.ORTHO_ITS ---
Patient Problems: Active and Suspected Problems (Last Updated 06/23/17 @ 16:16 by Susannah Brooks) Surgical site infection (Acute) Subjective: The patient was resting in bed upon examination. Patient denies any chest pain , shortness of breath, dizziness, lightheadedness, nausea or vomiting, or calf pain. Pain is controlled on medications. No adverse overnight events. Plan is for [facility] to jail facility [facility]. Patient will be going to [facility]. Wound VAC has been placed and the surrounding skin has continued to improve since surgery. No new drainage. Objective: Vital signs stable and afebrile. Patient is able to plantarflex and dorsiflex actively. Sensation is intact to light touch to saphenous, sural, superficial and deep peroneal, and tibial distribution. Wound VAC in place, minimal output in canister, this is been stable since yesterday. No new drainage in tubing. Surrounding skin continues to improve with resolving erythema that was present prior to surgery. Negative Homans bilaterally, negative signs and symptoms of DVT. - Physical Exam General: Alert, Oriented x3, Cooperative, No apparent distress Vital Signs Temp Pulse Resp BP Pulse Ox 98.0 F 59 L 18 123/41 H 97 09/19/17 02:13 09/19/17 02:13 09/19/17 02:13 09/19/17 02:13 09/19/17 02:13 Oxygen Flow Rate (L/min) 2 Oxygen Delivery Method Room Air Weight: 76.2 kg Body Mass Index (BMI) 30.7 Finger Stick Blood Glucose 156 Intake and Output for Last 24 Hours 09/17/17 09/18/17 09/19/17 23:59 23:59 23:59 Intake Total 3680 / 3680 1306 / 1306 128 / 128 Output Total 700 / 700 1250 / 1250 Balance 2980 / 2980 56 / 56 128 / 128 Microbiology Past 72 Hours 09/16/17 20:01 Gram Stain - Final Tissue - Other Wound Culture - Preliminary No growth-Final to follow 09/16/17 20:01 Gram Stain - Final Tissue - Other Wound Culture - Preliminary No growth-Final to follow 09/16/17 20:01 Gram Stain - Final Tissue - Other Wound Culture - Preliminary No growth-Final to follow 09/16/17 20:01 Gram Stain - Final Tissue - Other Wound Culture - Preliminary No growth-Final to follow 09/16/17 13:45 Nasal Screen MRSA/MSSA (BETTY) - Final Swab (Method) Laboratory Tests Past 24 Hrs 09/18/17 09/19/17 07:10 07:00 WBC 4.4 RBC 2.97 L Hgb 9.2 L Hct 29.3 L MCV 98.7 MCH 31.0 MCHC 31.4 L RDW 13.6 RDW Differential 49.2 H Plt Count 111 L MPV 11.0 Vancomycin Trough 16.7 H Medical Necessity - Tobacco Use Smoking Status: Never smoker Tobacco Use: Non-smoker Assessment/Plan Active and Suspected Problems (Last Updated 06/23/17 @ 16:16 by Susannah Brooks) Surgical site infection (Acute) 1. S/P irrigation debridement left total hip replacement with acetabular liner and femoral head revision POD #3 2. Continue Pain Medications: Tylenol and tramadol 3. DVT Prophylaxis: Aspirin 325 mg twice daily 4. PT/OT: Weightbearing as tolerated 5. H & H: Currently 9.2/29.3, asymptomatic 6. Encouraged Incentive Spirometry 7. Consult for infectious disease: Continue vancomycin and cefazolin while in hospital. Infectious disease recommends oral antibiotic consisting of doxycycline 100 mg twice daily and Keflex 500 mg 3 times daily at discharge for 10 days. 8. Continue postoperative medical management per medicine: She is with significant medical history consisting of hypertension, coronary artery disease , ischemic cardiomyopathy, history of heart bypass and pacemaker, dementia, anemia, history of stroke, history of atrial fibrillation, and neuropathy. 9. Disposition: Plan is for [facility] to [facility] facility. We will continue with wound VAC with changes on Thursday/Thursday/Thursday and will be okay to discontinue wound VAC if incision is dry and no drainage between dressing changes. Patient will follow-up for 2 week postoperative visit. Prescriptions are attached to chart.
--- NOTE | 2017-09-19 08:12 | PCM.DC.THR ---
Discharge Diet: No Restrictions Discharge Activity: May Not Drive - while taking narcotic pain medications. Ice area for (Minutes): 20 - Every 1-2 hours while awake Weight Bearing Status: Weight bearing as tolerated Elevate: Operative Extremity Additional Activity Instructions:: Wear elastic stockings for 2 weeks. DO NOT use alcohol with narcotic pain medication. DO NOT make important decisions while taking narcotic medication. If you have problems with taking your medication (rash, itching, nausea, etc.) call the office at once. Call your doctor if your incision/area has: Increased Pain/ Swelling, Increased Redness, Foul Smelling Discharge Call your doctor if you observe: Fever of 101 or Higher Additional Instructions: Wound VAC: Change dressing on Thursday/Thursday/Thursday. Okay to discontinue wound VAC if incision is dry and no drainage between dressing changes next week. Follow [facility] postop instructions Allergies/Adverse Reactions: Allergies adhesive Allergy (Verified 07/06/17 14:37) Unknown donepezil [Donepezil] Allergy (Verified 07/06/17 14:37) Unknown nitroglycerin Allergy (Verified 07/06/17 14:37) Unknown oxycodone HCl [From Percocet] Allergy (Verified 07/06/17 14:37) Unknown phenobarbital Allergy (Verified 07/06/17 14:37) Unknown tolmetin sodium [From Tolectin] Allergy (Verified 07/06/17 14:37) Unknown venlafaxine Allergy (Verified 07/06/17 14:37) Unknown nitropatch Allergy (Uncoded 07/06/17 14:37) unknown Medications to take at Discharge Quinapril HCl [Accupril] 40 mg PO DAILY 07/01/13 Magnesium Oxide [Mag-Ox 400] 400 mg PO DAILY 09/17/15 Nitroglycerin [Nitrostat] 0.4 mg SUBLINGUAL Q5M PRN 09/20/15 coenzyme Q10 200 mg capsule 200 mg PO DAILY 05/05/17 gabapentin 100 mg capsule 200 mg PO BID 05/05/17 esomeprazole magnesium 40 mg capsule,delayed release 40 mg PO DAILY cap 05/07/17 melatonin 3 mg tablet 3 mg PO HS PRN 05/07/17 amlodipine 5 mg tablet 5 mg PO DAILY 06/23/17 atorvastatin 40 mg tablet 20 mg PO QHS tab 06/23/17 furosemide 40 mg tablet 40 mg PO DAILY 06/23/17 Carvedilol [Coreg (Beta Gene)] 25 mg PO BID 07/06/17 Cholecalciferol (Vitamin D3) [Vitamin D3] 1,000 unit PO DAILY 07/06/17 Acetaminophen [Tylenol] 1,000 mg PO Q8 14 Days tablet 09/19/17 Aspirin 325 mg PO BIDCM 30 Days tablet 09/19/17 Cephalexin [Keflex] 500 mg PO TID #30 cap 09/19/17 Doxycycline Monohydrate 100 mg PO BID #20 tab 09/19/17 Famotidine [Pepcid] 20 mg PO BID #30 tab 09/19/17 Fluconazole [Diflucan] 100 mg PO DAILY #7 tab 09/19/17 Lisinopril [Zestril] 40 mg PO DAILY tablet 09/19/17 Senna/Docusate Sodium [Senokot-S] 2 tab PO BID #20 tab 09/19/17 traMADol [Ultram] 50 - 100 mg PO Q6H PRN PRN 7 Days #56 tab 09/19/17 The following prescriptions were given: traMADol [Ultram] 50 - 100 mg PO Q6H PRN PRN 7 Days #56 tab PRN Reason: Pain Fluconazole [Diflucan] 100 mg PO DAILY #7 tab Doxycycline Monohydrate 100 mg PO BID #20 tab Famotidine [Pepcid] 20 mg PO BID #30 tab Senna/Docusate Sodium [Senokot-S] 2 tab PO BID #20 tab Cephalexin [Keflex] 500 mg PO TID #30 cap Primary Care Physician: Bijan Austin MD [Primary Care Provider] - Please Follow Up With: Akbar Williamson PA-C When: 09/30/17 @ 10:30 am
--- NOTE | 2017-09-19 08:15 | PCM.DC.SUM ---
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) Hyperthyroidism (Chronic) Hypokalemia (Chronic) Atherosclerotic heart disease of [place] coronary artery without angina pectoris (Chronic) CABG x1 RANDLE-LAD x/Aortic Valve Replacement Left bundle-branch block (Chronic) Nonrheumatic aortic valve stenosis (Chronic) HTN (hypertension) (Chronic) Other chest pain (Chronic) Presence of aortocoronary bypass graft (Chronic) Dyspnea on exertion (Chronic) Fatigue (Chronic) Chronic pulmonary heart disease (Chronic) CVA (cerebral infarction) (Chronic) Hyperlipidemia (Chronic) Paroxysmal ventricular tachycardia (Chronic) HTN (hypertension) (Chronic) Hypothyroidism associated with surgical procedure (Chronic) had a subtotal thyroidectomy for goiter Hemorrhoids (Chronic) Restless leg syndrome (Chronic) TIA (transient ischemic attack) (Chronic) multiple History of aortic valve replacement with bioprosthetic valve (Chronic) Hospital Course and Treatment Consultations 09/17/17 13:27 Consult: Onc/Wound/pin drafter operator Routine Comment: Wound Vac Right Hip: continuous setting 75 mmHg Reason for Consult:: Drainage at incision post-operatively Comments:: Dressing changes Thu/Thu/Thu Summary of Care Provided: Patient is a 82-year-old female who presented to [facility] with redness and drainage from previous incision. Patient underwent a previous left total hip replacement on July 21, [address] Parr. Patient was doing well postoperatively until September 14, 2017 when her incision became red followed by drainage and opening and incision. After discussion the patient opted to proceed with an irrigation debridement left total hip replacement with acetabular liner and femoral head revision. The patient underwent the above-stated procedure on September 16, 2017. Patient did receive intraoperative antibiotics. Intraoperatively was uneventful. For details please see dictated operative note. The patient was placed in thigh-high teds, bilateral SCDs, remained stable in recovery. Patient was admitted to the 3rd floor at [facility]. The patient's pain was managed with the use of IV and p.o. pain medications. Patient participated in physical therapy. Wound VAC needed to be placed on postoperative day #1 due to draining incision. Patient has done well with the wound VAC with no further drainage and erythema improving. Medicine was consulted for postoperative medical management due to comorbidities. Infectious disease was consulted for management of antibiotics. Patient was discharged on postoperative day #3 to long term facility: [facility]. Patient was given medications stated below. Patient will continue with the wound VAC with dressing changes on Thursday/Thursday/Thursday. Okay to discontinue the wound VAC when the incision is dry with no drainage in between dressing changes at the nursing facility. Patient will follow up with [facility] per postop instructions for reassessment. Discharge Diet: No Restrictions Discharge Activity: May Not Drive - while taking narcotic pain medications. Ice area for (Minutes): 20 - Every 1-2 hours while awake Weight Bearing Status: Weight bearing as tolerated Keep extremity elevated above heart level: Operative Extremity Additional Activity Instructions:: Wear elastic stockings for 2 weeks. DO NOT use alcohol with narcotic pain medication. DO NOT make important decisions while taking narcotic medication. If you have problems with taking your medication (rash, itching, nausea, etc.) call the office at once. Call your doctor if your incision/area has: Increased Pain/ Swelling, Increased Redness, Foul Smelling Discharge Call your doctor if you observe: Fever of 101 or Higher Home Medications: Medications to take at Discharge Quinapril HCl [Accupril] 40 mg PO DAILY 07/01/13 Magnesium Oxide [Mag-Ox 400] 400 mg PO DAILY 09/17/15 Nitroglycerin [Nitrostat] 0.4 mg SUBLINGUAL Q5M PRN 09/20/15 coenzyme Q10 200 mg capsule 200 mg PO DAILY 05/05/17 gabapentin 100 mg capsule 200 mg PO BID 05/05/17 esomeprazole magnesium 40 mg capsule,delayed release 40 mg PO DAILY cap 05/07/17 melatonin 3 mg tablet 3 mg PO HS PRN 05/07/17 amlodipine 5 mg tablet 5 mg PO DAILY 06/23/17 atorvastatin 40 mg tablet 20 mg PO QHS tab 06/23/17 furosemide 40 mg tablet 40 mg PO DAILY 06/23/17 Carvedilol [Coreg (Beta Gene)] 25 mg PO BID 07/06/17 Cholecalciferol (Vitamin D3) [Vitamin D3] 1,000 unit PO DAILY 07/06/17 Acetaminophen [Tylenol] 1,000 mg PO Q8 14 Days tablet 09/19/17 Aspirin 325 mg PO BIDCM 30 Days tablet 09/19/17 Cephalexin [Keflex] 500 mg PO TID #30 cap 09/19/17 Doxycycline Monohydrate 100 mg PO BID #20 tab 09/19/17 Famotidine [Pepcid] 20 mg PO BID #30 tab 09/19/17 Fluconazole [Diflucan] 100 mg PO DAILY #7 tab 09/19/17 Lisinopril [Zestril] 40 mg PO DAILY tablet 09/19/17 Senna/Docusate Sodium [Senokot-S] 2 tab PO BID #20 tab 09/19/17 traMADol [Ultram] 50 - 100 mg PO Q6H PRN PRN 7 Days #56 tab 09/19/17 Following Prescrptions Were Given to Patient: traMADol [Ultram] 50 - 100 mg PO Q6H PRN PRN 7 Days #56 tab PRN Reason: Pain Fluconazole [Diflucan] 100 mg PO DAILY #7 tab Doxycycline Monohydrate 100 mg PO BID #20 tab Famotidine [Pepcid] 20 mg PO BID #30 tab Senna/Docusate Sodium [Senokot-S] 2 tab PO BID #20 tab Cephalexin [Keflex] 500 mg PO TID #30 cap Primary Care Physician: Bijan Austin MD [Primary Care Provider] - Please Follow Up With: Akbar Williamson PA-C When: 09/30/17 @ 10:30 am Additional Instructions: Wound VAC: Change dressing on Thursday/Thursday/Thursday. Okay to discontinue wound VAC if incision is dry and no drainage between dressing changes next week. Follow [facility] postop instructions Medical Necessity - Tobacco Use Smoking Status: Never smoker Tobacco Use: Non-smoker Meaningful Use Info Meaningful Use Diagnoses (Choose all that apply): None applicable
[2017-09-19 08:19] VITALS: BP 110/82; PULSE 74; RESP 18; TEMP 36.8; O2SAT 98
--- NOTE | 2017-09-19 08:23 | DS.PCM_ITS ---
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) Hyperthyroidism (Chronic) Hypokalemia (Chronic) Atherosclerotic heart disease of [place] coronary artery without angina pectoris (Chronic) CABG x1 RANDLE-LAD x/Aortic Valve Replacement Left bundle-branch block (Chronic) Nonrheumatic aortic valve stenosis (Chronic) HTN (hypertension) (Chronic) Other chest pain (Chronic) Presence of aortocoronary bypass graft (Chronic) Dyspnea on exertion (Chronic) Fatigue (Chronic) Chronic pulmonary heart disease (Chronic) CVA (cerebral infarction) (Chronic) Hyperlipidemia (Chronic) Paroxysmal ventricular tachycardia (Chronic) HTN (hypertension) (Chronic) Hypothyroidism associated with surgical procedure (Chronic) had a subtotal thyroidectomy for goiter Hemorrhoids (Chronic) Restless leg syndrome (Chronic) TIA (transient ischemic attack) (Chronic) multiple History of aortic valve replacement with bioprosthetic valve (Chronic) Hospital Course and Treatment Consultations 09/17/17 13:27 Consult: Onc/Wound/print production associate Routine Comment: Wound Vac Right Hip: continuous setting 75 mmHg Reason for Consult:: Drainage at incision post-operatively Comments:: Dressing changes Thu/Thu/Thu Summary of Care Provided: Patient is a 82-year-old female who presented to [facility] office with redness and drainage from previous incision. Patient underwent a previous left total hip replacement on July 21, [address] Parr. Patient was doing well postoperatively until September 14, 2017 when her incision became red followed by drainage and opening and incision. After discussion the patient opted to proceed with an irrigation debridement left total hip replacement with acetabular liner and femoral head revision. The patient underwent the above- stated procedure on September 16, 2017. Patient did receive intraoperative antibiotics. Intraoperatively was uneventful. For details please see dictated operative note. The patient was placed in thigh-high teds, bilateral SCDs, remained stable in recovery. Patient was admitted to the 3rd floor at [facility]. The patient's pain was managed with the use of IV and p.o. pain medications. Patient participated in physical therapy. Wound VAC needed to be placed on postoperative day #1 due to draining incision. Patient has done well with the wound VAC with no further drainage and erythema improving. Medicine was consulted for postoperative medical management due to comorbidities. Infectious disease was consulted for management of antibiotics. Patient was discharged on postoperative day #3 to custodial facility: [facility]. Patient was given medications stated below. Patient will continue with the wound VAC with dressing changes on Thursday/Thursday/Thursday. Okay to discontinue the wound VAC when the incision is dry with no drainage in between dressing changes at the nursing facility. Patient will follow up with [facility] per postop instructions for reassessment. Discharge Diet: No Restrictions Discharge Activity: May Not Drive - while taking narcotic pain medications. Ice area for (Minutes): 20 - Every 1-2 hours while awake Weight Bearing Status: Weight bearing as tolerated Keep extremity elevated above heart level: Operative Extremity Additional Activity Instructions:: Wear elastic stockings for 2 weeks. DO NOT use alcohol with narcotic pain medication. DO NOT make important decisions while taking narcotic medication. If you have problems with taking your medication (rash, itching, nausea, etc.) call the office at once. Call your doctor if your incision/area has: Increased Pain/ Swelling, Increased Redness, Foul Smelling Discharge Call your doctor if you observe: Fever of 101 or Higher Home Medications: Medications to take at Discharge Quinapril HCl [Accupril] 40 mg PO DAILY 07/01/13 Magnesium Oxide [Mag-Ox 400] 400 mg PO DAILY 09/17/15 Nitroglycerin [Nitrostat] 0.4 mg SUBLINGUAL Q5M PRN 09/20/15 coenzyme Q10 200 mg capsule 200 mg PO DAILY 05/05/17 gabapentin 100 mg capsule 200 mg PO BID 05/05/17 esomeprazole magnesium 40 mg capsule,delayed release 40 mg PO DAILY cap melatonin 3 mg tablet 3 mg PO HS PRN 05/07/17 amlodipine 5 mg tablet 5 mg PO DAILY 06/23/17 atorvastatin 40 mg tablet 20 mg PO QHS tab 06/23/17 furosemide 40 mg tablet 40 mg PO DAILY 06/23/17 Carvedilol [Coreg (Beta Gene)] 25 mg PO BID 07/06/17 Cholecalciferol (Vitamin D3) [Vitamin D3] 1,000 unit PO DAILY 07/06/17 Acetaminophen [Tylenol] 1,000 mg PO Q8 14 Days tablet 09/19/17 Aspirin 325 mg PO BIDCM 30 Days tablet 09/19/17 Cephalexin [Keflex] 500 mg PO TID #30 cap 09/19/17 Doxycycline Monohydrate 100 mg PO BID #20 tab 09/19/17 Famotidine [Pepcid] 20 mg PO BID #30 tab 09/19/17 Fluconazole [Diflucan] 100 mg PO DAILY #7 tab 09/19/17 Lisinopril [Zestril] 40 mg PO DAILY tablet 09/19/17 Senna/Docusate Sodium [Senokot-S] 2 tab PO BID #20 tab 09/19/17 traMADol [Ultram] 50 - 100 mg PO Q6H PRN PRN 7 Days #56 tab 09/19/17 Following Prescrptions Were Given to Patient: traMADol [Ultram] 50 - 100 mg PO Q6H PRN PRN 7 Days #56 tab PRN Reason: Pain Fluconazole [Diflucan] 100 mg PO DAILY #7 tab Doxycycline Monohydrate 100 mg PO BID #20 tab Famotidine [Pepcid] 20 mg PO BID #30 tab Senna/Docusate Sodium [Senokot-S] 2 tab PO BID #20 tab Cephalexin [Keflex] 500 mg PO TID #30 cap Primary Care Physician: Bijan Austin MD [Primary Care Provider] - Please Follow Up With: Akbar Williamson PA-C When: 09/30/17 @ 10:30 am Additional Instructions: Wound VAC: Change dressing on Thursday/Thursday/Thursday. Okay to discontinue wound VAC if incision is dry and no drainage between dressing changes next week. Follow [facility] postop instructions Medical Necessity - Tobacco Use Smoking Status: Never smoker Tobacco Use: Non-smoker Meaningful Use Info Meaningful Use Diagnoses (Choose all that apply): None applicable
[2017-09-19] MEDS: Magnesium Oxide 400 MG Tablet PO (08:25)
[2017-09-19] MEDS: Carvedilol 25 MG Tablet PO (08:25)
[2017-09-19] MEDS: Lisinopril 40 MG Tablet PO (08:25)
[2017-09-19] MEDS: Aspirin 325 MG Tablet PO (08:25)
[2017-09-19] MEDS: Fluconazole 100 MG Tablet PO (08:25)
[2017-09-19] MEDS: Senna/Docusate Sodium 1 Tablet 2 TABLET PO (08:25)
[2017-09-19] MEDS: amLODIPine 5 MG Tablet PO (08:26)
[2017-09-19] MEDS: Famotidine 20 MG Tablet PO (08:26)
[2017-09-19] MEDS: Furosemide 40 MG Tablet PO (08:26)
--- NOTE | 2017-09-19 08:59 | PCM.PROGNOTE ---
Patient Problems: Active and Suspected Problems (Last Updated 06/23/17 @ 16:16 by Susannah Brooks) Surgical site infection (Acute) Subjective: Chief complaint: Follow-up after consultation for postoperative medical management. Patient seen and examined. No acute events overnight. She denies any complaints patient has been ambulating and she has no left hip pain. Denied chest pain or shortness of breath. Her vital signs are stable. - Physical Exam General: Alert, Oriented x3, Cooperative, No apparent distress HEENT: Atraumatic, PERRLA, EOMI Oral: Moist Mucosa, No Gingival or Mucosal Lesions/ Ulcerations Neck: Supple, No JVD, Negative Carotid Bruits, Trachea Midline, Thyroid Normal Size and Texture Lungs: Clear to auscultation, No rhonchi, No wheeze, No rales, Diminished Cardiovascular: Regular rate, Regular Rhythm, Normal S1, Normal S2, PMI Normal Abdomen: Bowel Sounds Present, Soft, Non Tender, Non-Distended, No Hepato-splenomegaly Extremities: No clubbing, No cyanosis, No edema Skin: No rashes, No breakdown Lymphatic: No Cervical, Supraclavicular, or Inguinal Adenopathy Neurological: Cranial nerves II-XII grossly intact, Neuro grossly intact Psych/Mental Status: Normal Affect, Appropriate, Alert and oriented to time, place, person, mood and affect Vital Signs Temp Pulse Resp BP Pulse Ox 98.3 F 74 18 110/82 H 98 09/19/17 08:19 09/19/17 08:19 09/19/17 08:19 09/19/17 08:19 09/19/17 08:19 Oxygen Flow Rate (L/min) 2 Oxygen Delivery Method Room Air Weight: 167 lb 15.876 oz Body Mass Index (BMI) 30.7 Finger Stick Blood Glucose 156 Intake and Output for Last 24 Hours 09/17/17 09/18/17 09/19/17 23:59 23:59 23:59 Intake Total 3680 / 3680 1306 / 1306 128 / 128 Output Total 700 / 700 1250 / 1250 Balance 2980 / 2980 56 / 56 128 / 128 Microbiology Past 72 Hours 09/16/17 20:01 Gram Stain - Final Tissue - Other Wound Culture - Preliminary No growth-Final to follow 09/16/17 20:01 Gram Stain - Final Tissue - Other Wound Culture - Preliminary No growth-Final to follow 09/16/17 20:01 Gram Stain - Final Tissue - Other Wound Culture - Preliminary No growth-Final to follow 09/16/17 20:01 Gram Stain - Final Tissue - Other Wound Culture - Preliminary No growth-Final to follow 09/16/17 13:45 Nasal Screen MRSA/MSSA (BETTY) - Final Swab (Method) Laboratory Tests Past 24 Hrs 09/19/17 07:00 WBC 4.4 RBC 2.97 L Hgb 9.2 L Hct 29.3 L MCV 98.7 MCH 31.0 MCHC 31.4 L RDW 13.6 RDW Differential 49.2 H Plt Count 111 L MPV 11.0 Medical Necessity - Tobacco Use Smoking Status: Never smoker Tobacco Use: Non-smoker Assessment/Plan Active and Suspected Problems (Last Updated 06/23/17 @ 16:16 by Susannah Brooks) Surgical site infection (Acute) This is an 82 years old female patient admitted for superficial surgical site infection of the left hip after she underwent 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 #1 superficial surgical site infection of the left hip: Status post irrigation debridement of the left total hip replacement with acetabular liner and femoral head revision, postoperative day 3. Her vital signs are stable. Left hip pain is well controlled, has been ambulating without any pain. Routine blood work reviewed, remarkable for chronic anemia with stable hemoglobin. Orthopedic surgery is managing. From medical standpoint, patient can be discharged to long term facility on the same medication that she has been taking before without any changes. #2 CAD status post CABG: Stable, continue aspirin, statins, Coreg and lisinopril. #3 status post aortic valve replacement with bioprosthetic valve: Stable, no acute issues. #4 chronic systolic CHF/ischemic cardiomyopathy: Compensated, stable. Continue Coreg, lisinopril, aspirin and statins. #5 hypertension: Blood pressure stable, continue Coreg and lisinopril. #6 hyperlipidemia: Continue statins. #7 history of paroxysmal A. fib: She is in sinus rhythm, heart rate stable. Continue Coreg. #8 chronic anemia: Hemoglobin and hematocrit are stable, no indication for transfusion. #9 DVT prophylaxis: She is on full dose of aspirin twice daily. This note was generated with [employer] software. It may contain incorrect words, spelling, and punctuation that were not noted in checking the note before signing. Code Visit Inpatient E&M: 05316 Subs Hosp L2
--- NOTE | 2017-09-19 09:08 | PN_ITS ---
Patient Problems: Active and Suspected Problems (Last Updated 06/23/17 @ 16:16 by Susannah Brooks) Surgical site infection (Acute) Subjective: Chief complaint: Follow-up after consultation for postoperative medical management. Patient seen and examined. No acute events overnight. She denies any complaints patient has been ambulating and she has no left hip pain. Denied chest pain or shortness of breath. Her vital signs are stable. - Physical Exam General: Alert, Oriented x3, Cooperative, No apparent distress HEENT: Atraumatic, PERRLA, EOMI Oral: Moist Mucosa, No Gingival or Mucosal Lesions/ Ulcerations Neck: Supple, No JVD, Negative Carotid Bruits, Trachea Midline, Thyroid Normal Size and Texture Lungs: Clear to auscultation, No rhonchi, No wheeze, No rales, Diminished Cardiovascular: Regular rate, Regular Rhythm, Normal S1, Normal S2, PMI Normal Abdomen: Bowel Sounds Present, Soft, Non Tender, Non-Distended, No Hepato- splenomegaly Extremities: No clubbing, No cyanosis, No edema Skin: No rashes, No breakdown Lymphatic: No Cervical, Supraclavicular, or Inguinal Adenopathy Neurological: Cranial nerves II-XII grossly intact, Neuro grossly intact Psych/Mental Status: Normal Affect, Appropriate, Alert and oriented to time, place, person, mood and affect Vital Signs Temp Pulse Resp BP Pulse Ox 98.3 F 74 18 110/82 H 98 09/19/17 08:19 09/19/17 08:19 09/19/17 08:19 09/19/17 08:19 09/19/17 08:19 Oxygen Flow Rate (L/min) 2 Oxygen Delivery Method Room Air Weight: 167 lb 15.876 oz Body Mass Index (BMI) 30.7 Finger Stick Blood Glucose 156 Intake and Output for Last 24 Hours 09/17/17 09/18/17 09/19/17 23:59 23:59 23:59 Intake Total 3680 / 3680 1306 / 1306 128 / 128 Output Total 700 / 700 1250 / 1250 Balance 2980 / 2980 56 / 56 128 / 128 Microbiology Past 72 Hours 09/16/17 20:01 Gram Stain - Final Tissue - Other Wound Culture - Preliminary No growth-Final to follow 09/16/17 20:01 Gram Stain - Final Tissue - Other Wound Culture - Preliminary No growth-Final to follow 09/16/17 20:01 Gram Stain - Final Tissue - Other Wound Culture - Preliminary No growth-Final to follow 09/16/17 20:01 Gram Stain - Final Tissue - Other Wound Culture - Preliminary No growth-Final to follow 09/16/17 13:45 Nasal Screen MRSA/MSSA (BETTY) - Final Swab (Method) Laboratory Tests Past 24 Hrs 09/19/17 07:00 WBC 4.4 RBC 2.97 L Hgb 9.2 L Hct 29.3 L MCV 98.7 MCH 31.0 MCHC 31.4 L RDW 13.6 RDW Differential 49.2 H Plt Count 111 L MPV 11.0 Medical Necessity - Tobacco Use Smoking Status: Never smoker Tobacco Use: Non-smoker Assessment/Plan Active and Suspected Problems (Last Updated 06/23/17 @ 16:16 by Susannah Brooks) Surgical site infection (Acute) This is an 82 years old female patient admitted for superficial surgical site infection of the left hip after she underwent 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 #1 superficial surgical site infection of the left hip: Status post irrigation debridement of the left total hip replacement with acetabular liner and femoral head revision, postoperative day 3. Her vital signs are stable. Left hip pain is well controlled, has been ambulating without any pain. Routine blood work reviewed, remarkable for chronic anemia with stable hemoglobin. Orthopedic surgery is managing. From medical standpoint, patient can be discharged to shelter facility on the same medication that she has been taking before without any changes. #2 CAD status post CABG: Stable, continue aspirin, statins, Coreg and lisinopril. #3 status post aortic valve replacement with bioprosthetic valve: Stable, no acute issues. #4 chronic systolic CHF/ischemic cardiomyopathy: Compensated, stable. Continue Coreg, lisinopril, aspirin and statins. #5 hypertension: Blood pressure stable, continue Coreg and lisinopril. #6 hyperlipidemia: Continue statins. #7 history of paroxysmal A. fib: She is in sinus rhythm, heart rate stable. Continue Coreg. #8 chronic anemia: Hemoglobin and hematocrit are stable, no indication for transfusion. #9 DVT prophylaxis: She is on full dose of aspirin twice daily. This note was generated with [employer] software. It may contain incorrect words, spelling, and punctuation that were not noted in checking the note before signing. Code Visit Inpatient E&M: 90246 Subs Hosp L2
[2017-09-19] MEDS: Gabapentin 100 MG Capsule PO (11:29)
[2017-09-19 13:12] VITALS: BP 111/77; PULSE 66; RESP 18; TEMP 36.8; O2SAT 99
--- NOTE | 2017-09-19 13:27 | NURSING ---
Report given to Kayla at [facility] at this time.
== END 2017-09-19 14:00 | disposition skilled nursing facility (03) | DRG 857 ==
LOC: ACINP 12:28 → MS3 17:30
PROVIDERS: Admitting Provider Specialist; Family Provider Family Medicine; PCP Family Medicine; Visit Provider Hospitalist
PROC: 0SRS0JA Replacement of Left Hip Joint, Femoral Surface with Synthetic Substitute, Uncemented, Open Approach (ICD-10-PCS; principal; 2017-09-16 16:35)
DX: T81.4XXA Infection following a procedure, initial encounter (principal); I50.22 Chronic systolic (congestive) heart failure; I25.5 Ischemic cardiomyopathy; I48.0 Paroxysmal atrial fibrillation; I25.10 Atherosclerotic heart disease of native coronary artery without angina pectoris; Z95.1 Presence of aortocoronary bypass graft; G25.81 Restless legs syndrome; Z95.3 Presence of xenogenic heart valve; Z86.73 Personal history of transient ischemic attack (TIA), and cerebral infarction without residual deficits; E89.0 Postprocedural hypothyroidism; I11.0 Hypertensive heart disease with heart failure; E78.5 Hyperlipidemia, unspecified; I27.9 Pulmonary heart disease, unspecified; Z95.810 Presence of automatic (implantable) cardiac defibrillator; Z96.642 Presence of left artificial hip joint
CPT/HCPCS: 36415; 73502; 80048; 80202; 85025; 85027; 85652; 86140; 87015; 87070; 87075; 87076; 87081; 87102; 87116; 87205; 87206; 93005; 97110; 97116; 97162; 97165; 97530; 97535; 99251; C1776; J7050; J7120; A4216; G0463

== ENCOUNTER 2017-09-30 21:41 | Inpatient (IN) | payer MEDICARE, OTHER, SELFPAY ==
[2017-09-30] VITALS (8 sets, daily range): BP systolic 158–197; BP diastolic 54–88; PULSE 74–150; RESP 12–42; TEMP 38.5; O2SAT 91–98; BMI 32.3
--- NOTE | 2017-09-30 22:03 | EKG12_ITS ---
Test Reason : SHORTNESS OF BREATH Blood Pressure : / mmHG Vent. Rate : 087 BPM Atrial Rate : 087 BPM P-R Int : 000 ms QRS Dur : 126 ms QT Int : 416 ms P-R-T Axes : 077 -60 115 degrees QTc Int : 500 ms Ventricular-paced rhythm Biventricular pacemaker detected Abnormal ECG Confirmed by MAGGY MCQUEEN, JEN ([id number]), assignment editor TERRI MENA ([id number]) on 10/02/2017 10:57:11 AM Referred By: JOCELYNN Confirmed By:JEN WINTER MD
--- NOTE | 2017-09-30 22:05 | RAD_ITS ---
STUDY: X-RAY CHEST REASON FOR EXAM: Female, 82 years old. Short of breath TECHNIQUE: AP portable COMPARISON: May 16 2016 FINDINGS: There are multiple bilateral nodules or nodular-type infiltrates more severe on the right. There appears to be a tiny left pleural effusion. Noted on the left with electrodes in satisfactory position. Heart is enlarged.. Normal mediastinum and kathy. Normal visualized pulmonary arteries. Tortuous aortic arch and descending thoracic aorta. Postop changes status post median sternotomy and CABG. Dorsal spine demonstrates spondylosis Normal visualized ribs, clavicles, and shoulders. There is no demonstrated abnormality of the visualized soft tissue structures of the upper abdomen. RAD/Chest 1 View (Portable) IMPRESSION: Multiple bilateral perihilar nodules or nodular-type infiltrates more severe on the right. This probably represents pulmonary edema however cannot exclude inflammatory disease or neoplasm. Clinical correlation recommended Electronically Signed: Zac Chandler MD at 22:48 EDT , Service support ,
[2017-09-30] MEDS: Ipratropium/Albuterol Sulfate 3 ML AMPUL.NEB INHALATION (22:43)
[2017-09-30 23:06] LABS: Absolute Lymphocyte Count 0.59 X10^3/ul (0.83-4.51); Absolute Neutrophil Count 12.5 X10^3/uL (2.0-7.7); Basophil# 0.04 X10^3/uL; Basophil% 0.3 % (0-1); Eosinophil# 0.07 X10^3/uL; Eosinophils% 0.5 % (0-5); Hematocrit 29.7 % (37-47); Hemoglobin 9.4 g/dl (12.0-15.0); Lymphocyte # 0.59 X10^3/ul (4.0); Lymphocyte % 4.2 % (19-41); Mean Corp Hgb Conc 31.6 g/gl (32-36); Mean Corpuscular Hgb 30.6 pg (27.0-32.0); Mean Corpuscular Volume 96.7 fL (81-99); Mean Platelet Vol. 10.4 fl (6.2-12.0); Monocyte# 0.87 X10^3/uL; Monocyte% 6.2 % (0-10); Neutrophil # 12.45 X10^3/uL (2.7-7.7); Neutrophil % 88.6 % (47-70); Platelet Count 286 K/mm3 (150-450); RBC Distribution Width CV 13.5 % (11.6-14.6); RBC Distribution Width SD 45.9 fl (35.1-43.9); Red Blood Count 3.07 M/mm3 (4.2-5.4); White Blood Count 14.1 K/mm3 (4.4-11.0)
[2017-09-30 23:10] LABS: Differential Indicated SCAN CRITERIA MET; POSITIVE COUNT NO; POSITIVE DIFFERENTIAL YES; POSITIVE MORPHOLOGY NO
[2017-09-30] MEDS: MethylPREDNISolone 125 MG/2 ML Vial IV (23:11)
[2017-09-30] MEDS: 0.9% Normal Saline 1,000 ML 150 ML IV (23:11)
[2017-09-30] MEDS: Acetaminophen 500 MG Tablet 1000 MG PO (23:11)
[2017-09-30 23:15] LABS: Anion Gap 7 (5-15); BUN 10 mg/dL (7-18); BUN/Creat Ratio 17.7 RATIO (10-20); Calcium,Total 8.7 mg/dL (8.5-10.1); Chloride 105 mmol/L (98-107); Creatinine, Serum 0.56 mg/dL (0.55-1.02); EST Glomerular Filtration Rate 109 mL/min (>60); Est Glom Filt Rate - Afr Amer 132 mL/min (>60); Estimated Creatinine Clearance 37.12 ml/min; Glucose 155 mg/dL (74-106); Potassium 2.8 mmol/L (3.5-5.1); Sodium Level 140 mmol/L (136-145)
[2017-09-30 23:16] LABS: Allen Test POS; Base Excess 1 mmol/L (-2 to +2); Bicarbonate 24.1 mmol/L (22-26); Blood Gas Specimen Type ART; EPAP 5; FI02 70; IPAP 10; PO2 113 mmHG (75-100); RR 12; SITE R Radial; SO2 99 % (95-99); Time Given 2302; Total Carbon Dioxide 25 mmol/L; pCO2 31.8 mmHg (35-45); pH 7.49 (7.35-7.45)
[2017-09-30 23:28] LABS: Anisocytosis RARE; Lactic Acid 1.2 mmol/L (0.4-2.0); Macrocytosis RARE; Platelet Estimate ADEQUATE (ADEQ)
--- NOTE | 2017-09-30 23:45 | ED.DCSUM_ITS ---
- ER Visit Summary Date of Service: 09/30/17 Chief Complaint: Shortness of breath History of Present Illness: The patient is a [address] Bijan Austin, Dr. Bella, and Dr. Parr. She reports that she has shortness of breath began 5 days ago. It is severe. States that she has a cough that is nonproductive. She has had a fever to 103? and chills. She also reports she has had diarrhea twice a day for the past 2 weeks. She denies any blood in her stools. Patient reports that she had a left total hip replacement in July and that it got infected. She had a revision of this 2 weeks ago. Physical Examination: Vitals: 1.3, 197/88, 89, 36, 91% on a nonrebreather. She is hypoxic. General: Well-nourished and well-developed. Head: Normocephalic atraumatic. Neck: Supple, no lymphadenopathy. No JVD. Nontender. Cardiovascular: Regular rate and rhythm. 2 out of 6 systolic murmur. Respiratory: Moderate respiratory distress. She is wheezing and has decreased air movement. There are diffuse rhonchi on the right.. Abdominal: Soft, nontender, nondistended, normal bowel sounds. No guarding, rebound, or peritoneal signs. Back: Nontender. Extremities: Nontender, 1+ pitting edema over lower extremities bilaterally. Incision over the left greater trochanter is clean, dry, and intact. There is no surrounding erythema, induration, or drainage. Skin: Normal color, no rash. Neurologic: Alert and oriented ?3. Cranial nerves II through XII are intact. Normal strength and sensation. Psych: Normal affect. Test Results: EKG is ventricular paced at 87. Chest x-ray shows the white lung to have infiltrates in the right upper, middle, and lower lobes. CBC is marked for white count of 14.1 with 89 segmented neutrophils and 4 lymphocytes. H&H 9.4 and 29.7. Chem-7 with potassium 2.8 glucose 155. Lactic acid is 1.2. ABG shows a pH 7.488 with a PCO2 of 31.8 and PO2 of 113. Emergency Department Course and Treatment: Patient was given albuterol Atrovent aerosols. She was placed on BiPAP and looks much improved. She is given Zosyn and vancomycin IV. She was given Solu-Medrol IV. She was given Tylenol and K- Dur p.o. Treatment Plan: Patient was discussed with Dr. Carnes and with Dr. Mcfadden. She will be admitted to the ICU for further evaluation and treatment. I did discuss with her the possibility of intubation. At this time she would like to be full code. Disposition: Admitted in improved, but critical condition. Impression: 1. Respiratory failure on BiPAP. 2. Pneumonia, healthcare acquired. 3. 14 day status post left hip revision and irrigation. 4. Critical care time 30 minutes. This note was generated with [employer] dictation software. It may contain incorrect words, spelling, and punctuation that were not noted in review of the chart prior to signing ED Disposition - Plan for ED Patient: Chief Complaint: Shortness of Breath Referrals: Bijan Austin MD [Primary Care Provider] -
--- NOTE | 2017-09-30 23:55 | PCM.HP.STD ---
Problem List (1) Surgical site infection Status: Resolved (2) Ischemic cardiomyopathy Status: Chronic (3) Paroxysmal atrial fibrillation Status: Chronic (4) Biventricular ICD (implantable cardioverter-defibrillator) in place Status: Chronic (5) Hyperthyroidism Status: Chronic (6) Hypokalemia Status: Chronic (7) Atherosclerotic heart disease of [place] coronary artery without angina pectoris Status: Chronic Qualifiers: [place] vs. transplanted heart: [place] heart Qualified Code(s): I25.10 - Atherosclerotic heart disease of [place] coronary artery without angina pectoris Comment: CABG x1 RANDLE-LAD x/Aortic Valve Replacement (8) Left bundle-branch block Status: Chronic (9) Nonrheumatic aortic valve stenosis Status: Chronic (10) HTN (hypertension) Status: Chronic Qualifiers: Hypertension type: essential hypertension Qualified Code(s): I10 - Essential (primary) hypertension (11) Other chest pain Status: Chronic (12) Presence of aortocoronary bypass graft Status: Chronic (13) Dyspnea on exertion Status: Chronic (14) Fatigue Status: Chronic (15) Chronic pulmonary heart disease Status: Chronic (16) CVA (cerebral infarction) Status: Chronic Qualifiers: Cerebral infarction mechanism: unspecified mechanism Qualified Code(s): I63.9 - Cerebral infarction, unspecified (17) Hyperlipidemia Status: Chronic Qualifiers: Hyperlipidemia type: pure hypercholesterolemia Qualified Code(s): E78.00 - Pure hypercholesterolemia, unspecified; E78.00 - Pure hypercholesterolemia, unspecified; E78.00 - Pure hypercholesterolemia, unspecified; E78.0 - Pure hypercholesterolemia (18) Paroxysmal ventricular tachycardia Status: Chronic (19) HTN (hypertension) Status: Chronic Qualifiers: Hypertension type: essential hypertension Qualified Code(s): I10 - Essential (primary) hypertension (20) Neck swelling Status: Acute Comment: left supraclavicular fossa and left neck (21) 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 Comment: had a subtotal thyroidectomy for goiter (22) Hemorrhoids Status: Chronic (23) Restless leg syndrome Status: Chronic (24) TIA (transient ischemic attack) Status: Chronic Qualifiers: Transient cerebral ischemia type: unspecified Qualified Code(s): G45.9 - Transient cerebral ischemic attack, unspecified Comment: multiple (25) History of aortic valve replacement with bioprosthetic valve Status: Chronic (26) multilobar HCAP Status: Acute (27) Acute respiratory failure with hypoxia Status: Acute History of Present Illness Date of Admission: 09/30/17 Chief Complaint: Shortness of breath since Thursday The patient is a 82 year old F with multiple comorbidities as listed above including chronic systolic heart failure with ischemic cardiomyopathy, coronary artery status post CABG, status post aortic bioprosthetic valve replacement and recurrent left hip surgery with recent surgical site infection was sent to ER from [facility] where she was discharged 09/19/2017 for management left total hip superficial wound infection with irrigation and debridement of left total hip replacement with acetabular liner and femoral head revision on 09/16/2017 For progressive worsening of shortness of breath since Thursday. Patient is also coughing with brownish sputum. Patient was noted to have fever and chills. Chest x-ray done in correction on 09/28 shows left lower lobe infiltrate and right perihilar infiltrate with a small left pleural effusion. The patient was started on antibiotic in a correction; name of antibiotic unclear. I as per the EMS vital, temperature 103.4?F, respiratory rate 40/min, pulse ox 88% on 5 L of oxygen and was put on nonrebreather mask. End-tidal CO2 on capnography 33. Patient was put on BiPAP in ED and chest x-ray shows multilobar multifocal nodular infiltrate. Patient has leukocytosis with left shift and severe hypokalemia. ABG shows 7.49/30 1/113 on BiPAP 10/5 at 70% FiO2, RR 12/min [] Past Medical History Past Medical History (Chronic Problems): Chronic Problems (Last Updated 06/23/17 @ 17:11 by Too Cote FIELD CONTROL INSPECTOR-C) Ischemic cardiomyopathy (Chronic) Paroxysmal atrial fibrillation (Chronic) 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) Hyperthyroidism (Chronic) Hypokalemia (Chronic) Atherosclerotic heart disease of [place] coronary artery without angina pectoris (Chronic) CABG x1 RANDLE-LAD x/Aortic Valve Replacement Left bundle-branch block (Chronic) Nonrheumatic aortic valve stenosis (Chronic) HTN (hypertension) (Chronic) Other chest pain (Chronic) Presence of aortocoronary bypass graft (Chronic) Dyspnea on exertion (Chronic) Fatigue (Chronic) Chronic pulmonary heart disease (Chronic) CVA (cerebral infarction) (Chronic) Hyperlipidemia (Chronic) Paroxysmal ventricular tachycardia (Chronic) HTN (hypertension) (Chronic) Hypothyroidism associated with surgical procedure (Chronic) had a subtotal thyroidectomy for goiter Hemorrhoids (Chronic) Restless leg syndrome (Chronic) TIA (transient ischemic attack) (Chronic) multiple History of aortic valve replacement with bioprosthetic valve (Chronic) Allergies adhesive Allergy (Verified 09/30/17 21:57) Unknown etodolac Allergy (Verified 09/30/17 21:57) Unknown magnesium Allergy (Verified 09/30/17 21:57) Unknown melatonin Allergy (Verified 09/30/17 21:57) Unknown nitroglycerin Allergy (Verified 09/30/17 21:57) Unknown oxycodone HCl [From Percocet] Allergy (Verified 09/30/17 21:57) Unknown phenobarbital Allergy (Verified 09/30/17 21:57) Unknown tolmetin sodium [From Tolectin] Allergy (Verified 09/30/17 21:57) Unknown venlafaxine Allergy (Verified 09/30/17 21:57) Unknown coenzyme Q10 Allergy (Uncoded 09/30/17 21:57) Unknown nitropatch Allergy (Uncoded 09/30/17 21:57) unknown Home Medications: Ambulatory Orders Medication Instructions Recorded Magnesium Oxide [Mag-Ox 400] 400 mg PO DAILY 09/17/15 Nitroglycerin [Nitrostat] 0.4 mg SUBLINGUAL Q5M PRN 09/20/15 coenzyme Q10 200 mg capsule 200 mg PO DAILY 05/05/17 gabapentin 100 mg capsule 200 mg PO BID 05/05/17 melatonin 3 mg tablet 3 mg PO HS PRN 05/07/17 amlodipine 5 mg tablet 5 mg PO DAILY 06/23/17 atorvastatin 40 mg tablet 20 mg PO QHS tab 06/23/17 furosemide 40 mg tablet 40 mg PO DAILY 06/23/17 Carvedilol [Coreg (Beta Gene)] 25 mg PO BID 07/06/17 Cholecalciferol (Vitamin D3) 1,000 unit PO DAILY 07/06/17 [Vitamin D3] Acetaminophen [Tylenol] 1,000 mg PO Q8 14 Days tablet 09/19/17 Aspirin 325 mg PO BIDCM 30 Days tablet 09/19/17 Lisinopril [Zestril] 40 mg PO DAILY tablet 09/19/17 Senna/Docusate Sodium [Senokot-S] 2 tab PO BID #20 tab 09/19/17 traMADol [Ultram] 50 - 100 mg PO Q6H PRN PRN 7 Days 09/19/17 #56 tab Albuterol Aerosols [Ventolin 2.5 mg INHALATION Q4H PRN PRN 09/30/17 Aerosols] Antifungal 1 % TOPICAL BID 09/30/17 Ceftriaxone [Rocephin] 2 gm IV Q24 09/30/17 Diphenhydramine HCl [Diphenhist] 25 mg PO Q4H PRN PRN 09/30/17 Famotidine [Pepcid] 20 mg PO BID 09/30/17 Metronidazole [Flagyl] 500 mg PO Q8 09/30/17 Omeprazole [Prilosec] 20 mg PO DAILY 09/30/17 Potassium Chloride [K-Dur] 20 meq PO DAILY 09/30/17 Surgical History: appendectomy, cholecystectomy, coronary bypass surgery, hysterectomy - She still has ovaries and fallopian tubes. The hysterectomy was done for dysfunctional uterine bleeding., pacemaker implantation, total hip arthroplasty, - - Bioprosthetic aortic valve replacement with CABG in October 2015 Psychiatric History: No pertinent psych hx [employer] History: dysfunctional uterine bld Smoking Status: Never smoker - *Family History Maternal History Items: Heart Disease, Hypertension Paternal History Items: High Cholesterol, Heart Disease Review of Systems Constitutional: Reports: Anorexia, Chills, Fever, Weakness HEENT: Reports: Difficulty Hearing Cardiovascular: Denies: Chest Pain, Palpitations Respiratory: Reports: Cough, Shortness of Breath, Shortness of breath at rest, Shortness of breath upon exertion, Sputum production. Denies: Hemoptysis Gastrointestinal: Denies: Abdominal Pain, Nausea, Vomiting Genitourinary: Denies: Dysuria Musculoskeletal: Reports: Joint Pain, Joint stiffness. Denies: Joint Tenderness Skin: Denies: Rash, Wounds Neurological: Denies: Numbness, Tingling, Focal weakness Psychiatric: Denies: Anxiety, Depression, Homicidal Ideations, Suicidal Ideations Hematologic/ Lymphatic: Denies: Easy Bruising, Easy Bleeding Unable to obtain accurate/complete ROS d/t: Because patient is short of breath and on BiPAP VTE Information - Inpt Only VTE Present on Admission: No VTE Mechan Device Prophylaxis: SCD's VTE Pharm Prophylaxis ordered?: Yes Patient Problems: Active and Suspected Problems (Last Updated 06/23/17 @ 17:11 by Too H Roof, FIELD CONTROL INSPECTOR-C) multilobar HCAP (Acute) Acute respiratory failure with hypoxia (Acute) - Physical Exam General: Oriented x3, Cooperative, Lethargic HEENT: Atraumatic, PERRLA, EOMI, Normocephalic Oral: - - On BiPAP Neck: Supple, No JVD, Negative Carotid Bruits Lungs: Diminished, Rales, Short of Breath Cardiovascular: Regular rate, Regular Rhythm, Normal S1, Normal S2, No murmurs Abdomen: Bowel Sounds Present, Soft, Non Tender, Non-Distended Extremities: Capillary Refill Less than 3 Seconds, Edema Skin: Ulcer/ Wound - Surgical suture present over left hip of previous surgery Musculoskeletal: Arthritic Changes, Muscle Wasting Neurological: Cranial nerves II-XII grossly intact Psych/Mental Status: Normal Affect, Appropriate Vital Signs Temp Pulse Resp BP Pulse Ox 101.3 F H 81 33 H 177/68 H 96 09/30/17 21:42 09/30/17 23:20 09/30/17 23:20 09/30/17 23:09 09/30/17 23:20 Oxygen Flow Rate (L/min) 5 Oxygen Delivery Method Bi-pap Weight: 182 lb 12.211 oz Body Mass Index (BMI) 32.3 Finger Stick Blood Glucose 156 Laboratory Tests Past 24 Hrs 09/30/17 09/30/17 09/30/17 22:40 22:40 22:40 WBC 14.1 H RBC 3.07 L Hgb 9.4 L Hct 29.7 L MCV 96.7 MCH 30.6 MCHC 31.6 L RDW 13.5 RDW Differential 45.9 H Plt Count 286 MPV 10.4 Immature Gran % (Auto) 0.200 Neut % (Auto) 88.6 H Lymph % (Auto) 4.2 L Titus % (Auto) 6.2 Eos % (Auto) 0.5 Baso % (Auto) 0.3 Absolute Neuts (auto) 12.5 H Absolute Lymphs (auto) 0.59 L Total Counted Not Reportable Differential Comment SEE COMMENT Platelet Estimate ADEQUATE Anisocytosis RARE Macrocytosis RARE Specimen Type Sample Site pH Bicarbonate Actual POC Total CO2 Base Excess O2 Saturation O2 % ABG pCO2 ABG pO2 David Test Respiration Rate O2 Delivery Device EPAP IPAP Blood Gas Notified Whom Blood Gas Notified Time Sodium 140 Potassium 2.8 L Chloride 105 Carbon Dioxide 28.0 Anion Gap 7 BUN 10 Creatinine 0.56 Estim Creat Clear Calc 37.12 Est GFR (MDRD) Af Amer 132 Est GFR (MDRD) Non-Af 109 BUN/Creatinine Ratio 17.7 Glucose 155 H Lactic Acid 1.2 Calcium 8.7 09/30/17 23:08 WBC RBC Hgb Hct MCV MCH MCHC RDW RDW Differential Plt Count MPV Immature Gran % (Auto) Neut % (Auto) Lymph % (Auto) Titus % (Auto) Eos % (Auto) Baso % (Auto) Absolute Neuts (auto) Absolute Lymphs (auto) Total Counted Differential Comment Platelet Estimate Anisocytosis Macrocytosis Specimen Type ART Sample Site R Radial pH 7.49 H Bicarbonate Actual 24.1 POC Total CO2 25 Base Excess 1 O2 Saturation 99 O2 % 70 ABG pCO2 31.8 L ABG pO2 113 H David Test POS Respiration Rate 12 O2 Delivery Device Bi / C PAP EPAP 5 IPAP 10 Blood Gas Notified Whom ED MD Blood Gas Notified Time 2302 Sodium Potassium Chloride Carbon Dioxide Anion Gap BUN Creatinine Estim Creat Clear Calc Est GFR (MDRD) Af Amer Est GFR (MDRD) Non-Af BUN/Creatinine Ratio Glucose Lactic Acid Calcium Assessment/Plan Active and Suspected Problems (Last Updated 06/23/17 @ 17:11 by Too Cote, FIELD CONTROL INSPECTOR-C) multilobar HCAP (Acute) Acute respiratory failure with hypoxia (Acute) The patient is a 82 year old F with multiple comorbidities as listed above including chronic systolic heart failure with ischemic cardiomyopathy, coronary artery status post CABG, status post aortic bioprosthetic valve replacement and recurrent left hip surgery with recent surgical site infection was sent to ER from [facility] where she was discharged 09/19/2017 for management left total hip superficial wound infection with irrigation and debridement of left total hip replacement with acetabular liner and femoral head revision on 09/16/2017 For progressive worsening of shortness of breath since Thursday. Patient is also coughing with brownish sputum. Patient was noted to have fever and chills. Chest x-ray done in correction on 09/28 shows left lower lobe infiltrate and right perihilar infiltrate with a small left pleural effusion. The patient was started on antibiotic in a correction; name of antibiotic unclear. I as per the EMS vital, temperature 103.4?F, respiratory rate 40/min, pulse ox 88% on 5 L of oxygen and was put on nonrebreather mask. End-tidal CO2 on capnography 33. Patient was put on BiPAP in ED and chest x-ray shows multilobar multifocal nodular infiltrate. Patient has leukocytosis with left shift and severe hypokalemia. ABG shows 7.49/31/113 on BiPAP 10/5 at 70% FiO2, RR 12/min 1. Acute hypoxic respiratory failure with respiratory alkalosis: Patient is being admitted in ICU on BiPAP. Intensive cardiopulmonary monitoring. Discussed with the patient's daughter and she agreed for intubation if needed. Monitor intake and output. 2. Multilobar, multifocal nodular healthcare acid pneumonia: Patient does not have history of smoking, COPD or interstitial lung disease. Chest x-ray shows multiple bilateral perihilar nodular infiltrates worse on the right side. [employer] consult. Started on broad-spectrum IV antibiotic vancomycin and Zosyn. Speech/swallow evaluation. MRSA nasal screen. Pneumonia workup with urinary antigens, blood cultures ?2 and UA ordered. 3. Cardiac conditions: Coronary artery disease status post CABG, bioprosthetic aortic valve replacement, chronic systolic heart failure with ischemic cardiomyopathy, hypertension, paroxysmal A. fib: Currently, denies chest pain. Twelve-lead EKG showed ventricular paced rhythm at 87 bpm. 4 left total hip surgical wound recent infection status post irrigation and debridement of left total hip replacement with acetabular liner and femoral head revision on 09/16/2017: Patient was supposed to see Dr. Parr tomorrow for sutures removal. Consult Dr. Parr. 5. Other chronic medical comorbidities include anemia of chronic disease, hypertension, dyslipidemia, diffuse degenerative joint disease with recurrent surgery on the left hip: Home medication reconciliation done. Laboratory Results 09/30/17 22:40: WBC 14.1 H, RBC 3.07 L, Hgb 9.4 L, Hct 29.7 L, MCV 96.7, MCH 30.6, MCHC 31.6 L, RDW 13.5, RDW Differential 45.9 H, Plt Count 286, MPV 10.4, Immature Gran % (Auto) 0.200, Neut % (Auto) 88.6 H, Lymph % (Auto) 4.2 L, Titus % (Auto) 6.2, Eos % (Auto) 0.5, Baso % (Auto) 0.3, Absolute Neuts (auto) 12.5 H, Absolute Lymphs (auto) 0.59 L, Total Counted Not Reportable, Differential Comment SEE COMMENT, Platelet Estimate ADEQUATE, Anisocytosis RARE, Macrocytosis RARE 09/30/17 22:40: Sodium 140, Potassium 2.8 L, Chloride 105, Carbon Dioxide 28.0, Anion Gap 7, BUN 10, Creatinine 0.56, Estim Creat Clear Calc 37.12, Est GFR (MDRD) Af Amer 132, Est GFR (MDRD) Non-Af 109, BUN/Creatinine Ratio 17.7, Glucose 155 H, Calcium 8.7 09/30/17 22:40: Lactic Acid 1.2 09/30/17 23:08: Specimen Type ART, Sample Site R Radial, pH 7.49 H, Bicarbonate Actual 24.1, POC Total CO2 25, Base Excess 1, O2 Saturation 99, O2 % 70, ABG pCO2 31.8 L, ABG pO2 113 H, David Test POS, Respiration Rate 12, O2 Delivery Device Bi / C PAP, EPAP 5, IPAP 10, Blood Gas Notified Whom ED MD, Blood Gas Notified Time 2302 Clinical Impression(s) from Imaging Studies Chest X-Ray 09/30/17 22:05 IMPRESSION: Multiple bilateral perihilar nodules or nodular-type infiltrates more severe on the right. This probably represents pulmonary edema however cannot exclude inflammatory disease or neoplasm. Clinical correlation recommended El= Code Visit Inpatient E&M: 47365 Init Hosp L3
[2017-10-01] VITALS (43 sets, daily range): BP systolic 108–158; BP diastolic 35–100; PULSE 60–770; RESP 12–40; TEMP 36.3–38.7; O2SAT 90–100; BMI 30.7
[2017-10-01] MEDS: Ipratropium/Albuterol Sulfate 3 ML AMPUL.NEB INHALATION ×2 (01:20→06:42)
[2017-10-01] MEDS: 0.9% Normal Saline 1,000 ML 100 ML IV (01:48)
[2017-10-01] MEDS: 0.9% NaCl IVPB Med Flush (250 mL) 15 ML IV (02:14)
--- NOTE | 2017-10-01 02:15 | PCM.RX.CS ---
Consult Pharmacy has been consulted to manage selected antiobiotic: Vancomycin Type of Consult: New start Suspected Infection: Pneumonia Prior Doses of Antibiotics Received/Current Regimen: Medications Piperacillin Sod/Tazobactam Sod (Zosyn) 3.375 gm in 50 mls @ 12.5 mls/hr IV Q8 [facility] Labs: Sodium 140 mmol/L (136-145) 09/30/17 22:40 Potassium 2.8 mmol/L (3.5-5.1) L 09/30/17 22:40 Chloride 105 mmol/L (98-107) 09/30/17 22:40 Carbon Dioxide 28.0 mmol/L (21.0-32.0) 09/30/17 22:40 Anion Gap 7 (5-15) 09/30/17 22:40 BUN 10 mg/dL (7-18) 09/30/17 22:40 Creatinine 0.56 mg/dL (0.55-1.02) 09/30/17 22:40 Est GFR (MDRD) Af Amer 132 mL/min (>60) 09/30/17 22:40 Est GFR (MDRD) Non-Af 109 mL/min (>60) 09/30/17 22:40 BUN/Creatinine Ratio 17.7 RATIO (10-20) 09/30/17 22:40 Glucose 155 mg/dL (74-106) H 09/30/17 22:40 Weight used for dosin.6 kg Estimated Creatinine Clearance: 37.12 Goal Trough: 15-20 mcg/mL Pharmacy Plan for Drug Dosing: Pharmacy Service will continue to monitor and adjust dosing as required. Medications Vancomycin HCl (Vancomycin) 1,000 mg in 200 mls @ 200 mls/hr IV Q24H [facility] Follow-Up Labs: Trough Vancomycin Labs to be done on [date and time ordered]: 10/02 @ 2300
--- NOTE | 2017-10-01 02:18 | PHA.PHARE_ITS ---
Consult Pharmacy has been consulted to manage selected antiobiotic: Vancomycin Type of Consult: New start Suspected Infection: Pneumonia Prior Doses of Antibiotics Received/Current Regimen: Medications Piperacillin Sod/Tazobactam Sod (Zosyn) 3.375 gm in 50 mls @ 12.5 mls/hr IV Q8 [facility] Labs: Sodium 140 mmol/L (136-145) 09/30/17 22:40 Potassium 2.8 mmol/L (3.5-5.1) L 09/30/17 22:40 Chloride 105 mmol/L (98-107) 09/30/17 22:40 Carbon Dioxide 28.0 mmol/L (21.0-32.0) 09/30/17 22:40 Anion Gap 7 (5-15) 09/30/17 22:40 BUN 10 mg/dL (7-18) 09/30/17 22:40 Creatinine 0.56 mg/dL (0.55-1.02) 09/30/17 22:40 Est GFR (MDRD) Af Amer 132 mL/min (>60) 09/30/17 22:40 Est GFR (MDRD) Non-Af 109 mL/min (>60) 09/30/17 22:40 BUN/Creatinine Ratio 17.7 RATIO (10-20) 09/30/17 22:40 Glucose 155 mg/dL (74-106) H 09/30/17 22:40 Weight used for dosin.6 kg Estimated Creatinine Clearance: 37.12 Goal Trough: 15-20 mcg/mL Pharmacy Plan for Drug Dosing: Pharmacy Service will continue to monitor and adjust dosing as required. Medications Vancomycin HCl (Vancomycin) 1,000 mg in 200 mls @ 200 mls/hr IV Q24H [facility] Follow-Up Labs: Trough Vancomycin Labs to be done on [date and time ordered]: 10/02 @ 2300
[2017-10-01] MEDS: Enoxaparin 40 MG/0.4 ML Syringe SC (03:15)
[2017-10-01] MEDS: Acetaminophen 325 MG Tablet 650 MG PO (03:15)
[2017-10-01 03:36] LABS: M R Staph aureus DNA By PCR Negative (Negative); Probe Check PASS; Specimen Processing Control PASS
[2017-10-01] MEDS: Piperacil/Tazobactam 3.375 GM/50 ML ML IV ×3 (05:27→21:18)
[2017-10-01] MEDS: 0.9% NaCl Peripheral Flush Adult/Peds IV ×3 (05:30→21:17)
[2017-10-01 05:44] LABS: Hematocrit 27.3 % (37-47); Hemoglobin 8.7 g/dl (12.0-15.0); Mean Corp Hgb Conc 31.9 g/gl (32-36); Mean Corpuscular Hgb 30.9 pg (27.0-32.0); Mean Corpuscular Volume 96.8 fL (81-99); Mean Platelet Vol. 10.6 fl (6.2-12.0); Platelet Count 215 K/mm3 (150-450); RBC Distribution Width CV 13.5 % (11.6-14.6); RBC Distribution Width SD 45.2 fl (35.1-43.9); Red Blood Count 2.82 M/mm3 (4.2-5.4)
[2017-10-01 05:45] LABS: Scan Indicated on CBC? Y/N NO
[2017-10-01 06:02] LABS: Anion Gap 9 (5-15); BUN 12 mg/dL (7-18); BUN/Creat Ratio 23.4 RATIO (10-20); Calcium,Total 8.4 mg/dL (8.5-10.1); Chloride 108 mmol/L (98-107); Creatinine, Serum 0.51 mg/dL (0.55-1.02); EST Glomerular Filtration Rate 123 mL/min (>60); Est Glom Filt Rate - Afr Amer 148 mL/min (>60); Estimated Creatinine Clearance 37.12 ml/min; Glucose 172 mg/dL (74-106); Potassium 3.9 mmol/L (3.5-5.1); Sodium Level 142 mmol/L (136-145)
--- NOTE | 2017-10-01 07:00 | PCM.CON.CC ---
Reason for Consult Date of Consultation: 10/01/17 Reason for Consultation: Acute respiratory failure History of Present Illness: The patient is an 82-year-old female, with a history as outlined below, who presented to the emergency department on September 30 with complaints of dyspnea, cough and fever. The patient was just recently admitted to the hospital September 16- with a surgical site infection at the site of her previous left total hip replacement, which occurred on July 21, [address] Parr. On September 16, the patient underwent irrigation/debridement of the left total hip replacement with acetabular liner and femoral head revision. The patient was evaluated by infectious diseases, who recommended a 10 day course of doxycycline and Keflex at discharge. The patient reports the presence of chills since her initial surgery. She denies utilizing supplemental oxygen at her baseline. Prior surface echocardiogram dated July 2016 revealed normal LV size and function with an ejection fraction of 55%. There is evidence of a mildly dilated RV with normal systolic function. Pulmonary artery systolic pressure was estimated to be 48 mmHg. The patient does have a history of coronary artery disease for which she is status post bypass surgery in October 2015, aortic valve disease with aortic valve replacement and is status post biventricular ICD implantation. The patient follows with Dr. Bella on an outpatient basis. On presentation to the emergency department, the patient was noted to be febrile with a temperature of 101.3?F. She was hypertensive with a documented blood pressure of 197/88. She was noted to be tachypneic and hypoxic, initially requiring a nonrebreather. Laboratory evaluation revealed elevated white blood cell count of 14,000. Chemistry profile was notable for a potassium of 2.8. Serum lactate was within normal limits at 1.2. MRSA screen was negative. Plain film chest x-ray revealed nodular airspace opacities most pronounced throughout the right hemithorax. Due to the patient's respiratory status, she did require the eventual initiation of BiPAP therapy. She was started on broad-spectrum antibiotics and subsequently transferred to the medical intensive care unit for ongoing management. Past Medical History Past Medical History (Chronic Problems): Chronic Problems (Last Updated 06/23/17 @ 17:11 by Too Cote NP-C) Ischemic cardiomyopathy (Chronic) Paroxysmal atrial fibrillation (Chronic) 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) Hyperthyroidism (Chronic) Hypokalemia (Chronic) Atherosclerotic heart disease of [place] coronary artery without angina pectoris (Chronic) CABG x1 RANDLE-LAD x/Aortic Valve Replacement Left bundle-branch block (Chronic) Nonrheumatic aortic valve stenosis (Chronic) HTN (hypertension) (Chronic) Other chest pain (Chronic) Presence of aortocoronary bypass graft (Chronic) Dyspnea on exertion (Chronic) Fatigue (Chronic) Chronic pulmonary heart disease (Chronic) CVA (cerebral infarction) (Chronic) Hyperlipidemia (Chronic) Paroxysmal ventricular tachycardia (Chronic) HTN (hypertension) (Chronic) Hypothyroidism associated with surgical procedure (Chronic) had a subtotal thyroidectomy for goiter Hemorrhoids (Chronic) Restless leg syndrome (Chronic) TIA (transient ischemic attack) (Chronic) multiple History of aortic valve replacement with bioprosthetic valve (Chronic) Allergies adhesive Allergy (Verified 09/30/17 21:57) Unknown etodolac Allergy (Verified 09/30/17 21:57) Unknown magnesium Allergy (Verified 09/30/17 21:57) Unknown melatonin Allergy (Verified 09/30/17 21:57) Unknown nitroglycerin Allergy (Verified 09/30/17 21:57) Unknown oxycodone HCl [From Percocet] Allergy (Verified 09/30/17 21:57) Unknown phenobarbital Allergy (Verified 09/30/17 21:57) Unknown tolmetin sodium [From Tolectin] Allergy (Verified 09/30/17 21:57) Unknown venlafaxine Allergy (Verified 09/30/17 21:57) Unknown coenzyme Q10 Allergy (Uncoded 09/30/17 21:57) Unknown nitropatch Allergy (Uncoded 09/30/17 21:57) unknown Home Medications: Ambulatory Orders Medication Instructions Recorded Magnesium Oxide [Mag-Ox 400] 400 mg PO DAILY 09/17/15 Nitroglycerin [Nitrostat] 0.4 mg SUBLINGUAL Q5M PRN 09/20/15 coenzyme Q10 200 mg capsule 200 mg PO DAILY 05/05/17 gabapentin 100 mg capsule 200 mg PO BID 05/05/17 melatonin 3 mg tablet 3 mg PO HS PRN 05/07/17 amlodipine 5 mg tablet 5 mg PO DAILY 06/23/17 atorvastatin 40 mg tablet 20 mg PO QHS tab 06/23/17 furosemide 40 mg tablet 40 mg PO DAILY 06/23/17 Carvedilol [Coreg (Beta Gene)] 25 mg PO BID 07/06/17 Cholecalciferol (Vitamin D3) 1,000 unit PO DAILY 07/06/17 [Vitamin D3] Acetaminophen [Tylenol] 1,000 mg PO Q8 14 Days tablet 09/19/17 Aspirin 325 mg PO BIDCM 30 Days tablet 09/19/17 Lisinopril [Zestril] 40 mg PO DAILY tablet 09/19/17 Senna/Docusate Sodium [Senokot-S] 2 tab PO BID #20 tab 09/19/17 traMADol [Ultram] 50 - 100 mg PO Q6H PRN PRN 7 Days 09/19/17 #56 tab Albuterol Aerosols [Ventolin 2.5 mg INHALATION Q4H PRN PRN 09/30/17 Aerosols] Antifungal 1 % TOPICAL BID 09/30/17 Ceftriaxone [Rocephin] 2 gm IV Q24 09/30/17 Diphenhydramine HCl [Diphenhist] 25 mg PO Q4H PRN PRN 09/30/17 Famotidine [Pepcid] 20 mg PO BID 09/30/17 Metronidazole [Flagyl] 500 mg PO Q8 09/30/17 Omeprazole [Prilosec] 20 mg PO DAILY 09/30/17 Potassium Chloride [K-Dur] 20 meq PO DAILY 09/30/17 Surgical History: appendectomy, cholecystectomy, coronary bypass surgery, hysterectomy - She still has ovaries and fallopian tubes. 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 Denies: Sputum production Gastrointestinal: Denies: Abdominal Pain, Nausea, Vomiting Genitourinary: Denies: Dysuria Musculoskeletal: Denies: Joint Pain, Joint Tenderness Skin: Denies: Rash, Wounds Neurological: Denies: Numbness, Tingling, Focal weakness Psychiatric: Denies: Anxiety, Depression, Homicidal Ideations, Suicidal Ideations Hematologic/ Lymphatic: Denies: Easy Bruising, Easy Bleeding Patient Problems: Active and Suspected Problems (Last Updated 06/23/17 @ 17:11 by BETTIE Batista) multilobar HCAP (Acute) Acute respiratory failure with hypoxia (Acute) Objective: The patient's most recent lab work, culture data and imaging studies have all been personally reviewed. Blood cultures are currently pending. Sputum culture, urine culture along with strep and urine Legionella antigens have all been ordered and are currently pending collection. - Physical Exam General: Alert, Cooperative, No apparent distress, - - Hard of hearing HEENT: Atraumatic, PERRLA, Normocephalic Oral: No Gingival or Mucosal Lesions/ Ulcerations Neck: Supple, No Nodes, Trachea Midline Lungs: Diminished, - - Rales present, right greater than left Cardiovascular: Regular rate, Regular Rhythm, Normal S1, Normal S2, Murmur, No rub noted, No Gallop Abdomen: Bowel Sounds Present, Soft, Non Tender Extremities: No clubbing, No cyanosis, Edema Skin: - - Previous surgical site intact Musculoskeletal: No Muscle Wasting Lymphatic: No Cervical, Supraclavicular, or Inguinal Adenopathy Neurological: Neuro grossly intact Psych/Mental Status: Normal Affect, Appropriate Vital Signs Temp Pulse Resp BP Pulse Ox 98.2 F 77 24 H 127/55 H 97 10/01/17 06:00 10/01/17 06:39 10/01/17 06:39 10/01/17 06:00 10/01/17 06:39 Oxygen Flow Rate (L/min) 3 Oxygen Delivery Method Bi-pap Weight: 173 lb 4.533 oz Body Mass Index (BMI) 30.7 Intake and Output for Last 24 Hours 09/29/17 09/30/17 10/01/17 23:59 23:59 23:59 Intake Total 1445 / 1445 Output Total 0 / 0 Balance 1445 / 1445 Laboratory Tests Past 24 Hrs 10/01/17 10/01/17 10/01/17 01:20 05:25 05:25 WBC 9.0 RBC 2.82 L Hgb 8.7 L Hct 27.3 L MCV 96.8 MCH 30.9 MCHC 31.9 L RDW 13.5 RDW Differential 45.2 H Plt Count 215 MPV 10.6 Sodium 142 Potassium 3.9 Chloride 108 H Carbon Dioxide 25.0 Anion Gap 9 BUN 12 Creatinine 0.51 L Estim Creat Clear Calc 37.12 Est GFR (MDRD) Af Amer 148 Est GFR (MDRD) Non-Af 123 BUN/Creatinine Ratio 23.4 H Glucose 172 H Calcium 8.4 L MRSA (PCR) Negative Clinical Impression(s) from Imaging Studies Chest X-Ray 09/30/17 22:05 IMPRESSION: Multiple bilateral perihilar nodules or nodular-type infiltrates more severe on the right. This probably represents pulmonary edema however cannot exclude inflammatory disease or neoplasm. Clinical correlation recommended Electronically Signed: Zac Chandler MD at 22:48 EDT , Service support , Assessment/Plan Active and Suspected Problems (Last Updated 06/23/17 @ 17:11 by Too Cote, POWER STATION OPERATOR-C) multilobar HCAP (Acute) Acute respiratory failure with hypoxia (Acute) RECOMMENDATIONS: 1. Obtain and send sputum for culture. Check strep and urine Legionella antigens. 2. Continue broad-spectrum antibiotics, pending finalized infectious workup. 3. Check BNP and troponin levels. 4. Wean patient from BiPAP. Continue supplemental oxygen to maintain saturations at or above 90%. 5. Continue home cardiac medications 6. Discontinue aerosols 7. Okay to advance diet 8. Encourage incentive spirometer use and mobilize patient as tolerated. IMPRESSIONS: 1. Acute hypoxemic respiratory failure, likely secondary to healthcare associated pneumonia The patient presented with dyspnea and required the initiation of BiPAP support. She has responded favorably from a clinical perspective to the use of BiPAP and broad-spectrum antibiotics in treatment for multifocal pneumonia. Given the patient's recent hospitalizations and residence at a [facility] facility, she will be maintained on broad-spectrum antibiotics in treatment for HCAP. Will check sputum culture along with strep and urine Legionella antigens. We will additionally check respiratory viral panel. The patient will be weaned from continuous BiPAP support and transition to supplemental oxygen via nasal cannula. Oxygen saturation should be maintained at or above 90%. Encourage incentive spirometer use and mobilize patient as tolerated. 2. 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 This appears to have resolved at this time. 3. Personal history of coronary artery disease status post CABG/aortic valve disease status post replacement/ICD in situ Continue home cardiac medications per outpatient regimen. 4. Advanced age/neuropathy/hypertension/hyperlipidemia/GERD Complicates care, management, recovery and prognosis. The patient is a documented DNR [facility] on file. Recommend physical therapy evaluation today. This note was generated with [employer] dictation software. It may contain incorrect words, spelling, and punctuation that were not noted in checking the note before signing. Code Visit Inpatient E&M: 39165 Init Hosp L3
--- NOTE | 2017-10-01 07:10 | RAD_ITS ---
STUDY: X-RAY CHEST REASON FOR EXAM: Female, 82 years old. Shortness of breath. Acute renal failure. TECHNIQUE: Single AP portable view of the chest. COMPARISON: Comparison is made with prior study dated September 30, 2017 at 10:12 PM. FINDINGS: EKG markings are seen. Since prior study, there has been progressive airspace disease in the right hemithorax. Increasing airspace disease in the left upper lobe and left lung base. Blunting of both costophrenic angles. Sternal cerclage wires and vascular clips are present from a prior sternotomy and coronary artery bypass graft procedure (CABG). A left-sided ICD is seen. Normal mediastinum and kathy. Normal visualized pulmonary arteries. Normal visualized aortic arch and descending thoracic aorta. Normal visualized thoracic spine. Normal visualized ribs, clavicles, and shoulders. There is no demonstrated abnormality of the visualized soft tissue structures of the upper abdomen. RAD/Chest 1 View (Portable) IMPRESSION: Progressive bilateral airspace disease worse in the right hemithorax. Electronically Signed: Reggie Castillo MD at 9:37 EDT Tel [phone], Service support ,
--- NOTE | 2017-10-01 07:11 | CON.PCM_ITS ---
Reason for Consult Date of Consultation: 10/01/17 Reason for Consultation: Acute respiratory failure History of Present Illness: The patient is an 82-year-old female, with a history as outlined below, who presented to the emergency department on September 30 with complaints of dyspnea, cough and fever. The patient was just recently admitted to the hospital September 16- with a surgical site infection at the site of her previous left total hip replacement, which occurred on July 21, [address] Parr. On September 16, the patient underwent irrigation/debridement of the left total hip replacement with acetabular liner and femoral head revision. The patient was evaluated by infectious diseases, who recommended a 10 day course of doxycycline and Keflex at discharge. The patient reports the presence of chills since her initial surgery. She denies utilizing supplemental oxygen at her baseline. Prior surface echocardiogram dated July 2016 revealed normal LV size and function with an ejection fraction of 55%. There is evidence of a mildly dilated RV with normal systolic function. Pulmonary artery systolic pressure was estimated to be 48 mmHg. The patient does have a history of coronary artery disease for which she is status post bypass surgery in October 2015, aortic valve disease with aortic valve replacement and is status post biventricular ICD implantation. The patient follows with Dr. Bella on an outpatient basis. On presentation to the emergency department, the patient was noted to be febrile with a temperature of 101.3?F. She was hypertensive with a documented blood pressure of 197/88. She was noted to be tachypneic and hypoxic, initially requiring a nonrebreather. Laboratory evaluation revealed elevated white blood cell count of 14,000. Chemistry profile was notable for a potassium of 2.8. Serum lactate was within normal limits at 1.2. MRSA screen was negative. Plain film chest x-ray revealed nodular airspace opacities most pronounced throughout the right hemithorax. Due to the patient's respiratory status, she did require the eventual initiation of BiPAP therapy. She was started on broad-spectrum antibiotics and subsequently transferred to the medical intensive care unit for ongoing management. Past Medical History Past Medical History (Chronic Problems): Chronic Problems (Last Updated 06/23/17 @ 17:11 by Too Cote NP-C) Ischemic cardiomyopathy (Chronic) Paroxysmal atrial fibrillation (Chronic) 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) Hyperthyroidism (Chronic) Hypokalemia (Chronic) Atherosclerotic heart disease of [place] coronary artery without angina pectoris (Chronic) CABG x1 RANDLE-LAD x/Aortic Valve Replacement Left bundle-branch block (Chronic) Nonrheumatic aortic valve stenosis (Chronic) HTN (hypertension) (Chronic) Other chest pain (Chronic) Presence of aortocoronary bypass graft (Chronic) Dyspnea on exertion (Chronic) Fatigue (Chronic) Chronic pulmonary heart disease (Chronic) CVA (cerebral infarction) (Chronic) Hyperlipidemia (Chronic) Paroxysmal ventricular tachycardia (Chronic) HTN (hypertension) (Chronic) Hypothyroidism associated with surgical procedure (Chronic) had a subtotal thyroidectomy for goiter Hemorrhoids (Chronic) Restless leg syndrome (Chronic) TIA (transient ischemic attack) (Chronic) multiple History of aortic valve replacement with bioprosthetic valve (Chronic) Allergies adhesive Allergy (Verified 09/30/17 21:57) Unknown etodolac Allergy (Verified 09/30/17 21:57) Unknown magnesium Allergy (Verified 09/30/17 21:57) Unknown melatonin Allergy (Verified 09/30/17 21:57) Unknown nitroglycerin Allergy (Verified 09/30/17 21:57) Unknown oxycodone HCl [From Percocet] Allergy (Verified 09/30/17 21:57) Unknown phenobarbital Allergy (Verified 09/30/17 21:57) Unknown tolmetin sodium [From Tolectin] Allergy (Verified 09/30/17 21:57) Unknown venlafaxine Allergy (Verified 09/30/17 21:57) Unknown coenzyme Q10 Allergy (Uncoded 09/30/17 21:57) Unknown nitropatch Allergy (Uncoded 09/30/17 21:57) unknown Home Medications: Ambulatory Orders Medication Instructions Recorded Magnesium Oxide [Mag-Ox 400] 400 mg PO DAILY 09/17/15 Nitroglycerin [Nitrostat] 0.4 mg SUBLINGUAL Q5M PRN 09/20/15 coenzyme Q10 200 mg capsule 200 mg PO DAILY 05/05/17 gabapentin 100 mg capsule 200 mg PO BID 05/05/17 melatonin 3 mg tablet 3 mg PO HS PRN 05/07/17 amlodipine 5 mg tablet 5 mg PO DAILY 06/23/17 atorvastatin 40 mg tablet 20 mg PO QHS tab 06/23/17 furosemide 40 mg tablet 40 mg PO DAILY 06/23/17 Carvedilol [Coreg (Beta Gene)] 25 mg PO BID 07/06/17 Cholecalciferol (Vitamin D3) 1,000 unit PO DAILY 07/06/17 [Vitamin D3] Acetaminophen [Tylenol] 1,000 mg PO Q8 14 Days tablet 09/19/17 Aspirin 325 mg PO BIDCM 30 Days tablet 09/19/17 Lisinopril [Zestril] 40 mg PO DAILY tablet 09/19/17 Senna/Docusate Sodium [Senokot-S] 2 tab PO BID #20 tab 09/19/17 traMADol [Ultram] 50 - 100 mg PO Q6H PRN PRN 7 Days 09/19/17 #56 tab Albuterol Aerosols [Ventolin 2.5 mg INHALATION Q4H PRN PRN 09/30/17 Aerosols] Antifungal 1 % TOPICAL BID 09/30/17 Ceftriaxone [Rocephin] 2 gm IV Q24 09/30/17 Diphenhydramine HCl [Diphenhist] 25 mg PO Q4H PRN PRN 09/30/17 Famotidine [Pepcid] 20 mg PO BID 09/30/17 Metronidazole [Flagyl] 500 mg PO Q8 09/30/17 Omeprazole [Prilosec] 20 mg PO DAILY 09/30/17 Potassium Chloride [K-Dur] 20 meq PO DAILY 09/30/17 Surgical History: appendectomy, cholecystectomy, coronary bypass surgery, hysterectomy - She still has ovaries and fallopian tubes. 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 Denies: Sputum production Gastrointestinal: Denies: Abdominal Pain, Nausea, Vomiting Genitourinary: Denies: Dysuria Musculoskeletal: Denies: Joint Pain, Joint Tenderness Skin: Denies: Rash, Wounds Neurological: Denies: Numbness, Tingling, Focal weakness Psychiatric: Denies: Anxiety, Depression, Homicidal Ideations, Suicidal Ideations Hematologic/ Lymphatic: Denies: Easy Bruising, Easy Bleeding Patient Problems: Active and Suspected Problems (Last Updated 06/23/17 @ 17:11 by DAJUAN Batista) multilobar HCAP (Acute) Acute respiratory failure with hypoxia (Acute) Objective: The patient's most recent lab work, culture data and imaging studies have all been personally reviewed. Blood cultures are currently pending. Sputum culture , urine culture along with strep and urine Legionella antigens have all been ordered and are currently pending collection. - Physical Exam General: Alert, Cooperative, No apparent distress, - - Hard of hearing HEENT: Atraumatic, PERRLA, Normocephalic Oral: No Gingival or Mucosal Lesions/ Ulcerations Neck: Supple, No Nodes, Trachea Midline Lungs: Diminished, - - Rales present, right greater than left Cardiovascular: Regular rate, Regular Rhythm, Normal S1, Normal S2, Murmur, No rub noted, No Gallop Abdomen: Bowel Sounds Present, Soft, Non Tender Extremities: No clubbing, No cyanosis, Edema Skin: - - Previous surgical site intact Musculoskeletal: No Muscle Wasting Lymphatic: No Cervical, Supraclavicular, or Inguinal Adenopathy Neurological: Neuro grossly intact Psych/Mental Status: Normal Affect, Appropriate Vital Signs Temp Pulse Resp BP Pulse Ox 98.2 F 77 24 H 127/55 H 97 10/01/17 06:00 10/01/17 06:39 10/01/17 06:39 10/01/17 06:00 10/01/17 06:39 Oxygen Flow Rate (L/min) 3 Oxygen Delivery Method Bi-pap Weight: 173 lb 4.533 oz Body Mass Index (BMI) 30.7 Intake and Output for Last 24 Hours 09/29/17 09/30/17 10/01/17 23:59 23:59 23:59 Intake Total 1445 / 1445 Output Total 0 / 0 Balance 1445 / 1445 Laboratory Tests Past 24 Hrs 10/01/17 10/01/17 10/01/17 01:20 05:25 05:25 WBC 9.0 RBC 2.82 L Hgb 8.7 L Hct 27.3 L MCV 96.8 MCH 30.9 MCHC 31.9 L RDW 13.5 RDW Differential 45.2 H Plt Count 215 MPV 10.6 Sodium 142 Potassium 3.9 Chloride 108 H Carbon Dioxide 25.0 Anion Gap 9 BUN 12 Creatinine 0.51 L Estim Creat Clear Calc 37.12 Est GFR (MDRD) Af Amer 148 Est GFR (MDRD) Non-Af 123 BUN/Creatinine Ratio 23.4 H Glucose 172 H Calcium 8.4 L MRSA (PCR) Negative Clinical Impression(s) from Imaging Studies Chest X-Ray 09/30/17 22:05 IMPRESSION: Multiple bilateral perihilar nodules or nodular-type infiltrates more severe on the right. This probably represents pulmonary edema however cannot exclude inflammatory disease or neoplasm. Clinical correlation recommended Electronically Signed: Zac Chandler MD at 22:48 EDT , Service support , Assessment/Plan Active and Suspected Problems (Last Updated 06/23/17 @ 17:11 by Too Cote, FUNDRAISING OFFICER- C) multilobar HCAP (Acute) Acute respiratory failure with hypoxia (Acute) RECOMMENDATIONS: 1. Obtain and send sputum for culture. Check strep and urine Legionella antigens. 2. Continue broad-spectrum antibiotics, pending finalized infectious workup. 3. Check BNP and troponin levels. 4. Wean patient from BiPAP. Continue supplemental oxygen to maintain saturations at or above 90%. 5. Continue home cardiac medications 6. Discontinue aerosols 7. Okay to advance diet 8. Encourage incentive spirometer use and mobilize patient as tolerated. IMPRESSIONS: 1. Acute hypoxemic respiratory failure, likely secondary to healthcare associated pneumonia The patient presented with dyspnea and required the initiation of BiPAP support. She has responded favorably from a clinical perspective to the use of BiPAP and broad-spectrum antibiotics in treatment for multifocal pneumonia. Given the patient's recent hospitalizations and residence at a [facility] facility, she will be maintained on broad-spectrum antibiotics in treatment for HCAP. Will check sputum culture along with strep and urine Legionella antigens. We will additionally check respiratory viral panel. The patient will be weaned from continuous BiPAP support and transition to supplemental oxygen via nasal cannula. Oxygen saturation should be maintained at or above 90 %. Encourage incentive spirometer use and mobilize patient as tolerated. 2. 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 This appears to have resolved at this time. 3. Personal history of coronary artery disease status post CABG/aortic valve disease status post replacement/ICD in situ Continue home cardiac medications per outpatient regimen. 4. Advanced age/neuropathy/hypertension/hyperlipidemia/GERD Complicates care, management, recovery and prognosis. The patient is a documented DNR [facility] on file. Recommend physical therapy evaluation today. This note was generated with [employer] dictation software. It may contain incorrect words, spelling, and punctuation that were not noted in checking the note before signing. Code Visit Inpatient E&M: 24421 Init Hosp L3
[2017-10-01 07:29] LABS: Color, Urine Yellow (Yellow); Glucose, Dipstick Normal (Normal); Ketone-Dipstick 15 mg/dl (Negative); Leukocyte Esterase-Dipstick 25 /ul (Negative); Nitrite-Dipstick Negative (Negative); Occult Blood-Urine 10 /ul (Negative); Protein-Dipstick 100 mg/dl (Negative); Urine Bilirubin Dipstick Negative (Negative); Urine Clarity Sl. Cloudy (Clear); Urine Urobilinogen Normal (Normal)
--- NOTE | 2017-10-01 08:38 | CASEMGMT ---
CATHERINE CM Readmission Note: 09/16/17-09/19/17- Tx for I/D LTHR w/acetabular liner and femoral head revision on 09/16/17. IV antibiotics, wound vac, dc'd to [facility] on 09/19/17. 09/30/17- Readmit for HCAP. CXR shows mult yeny perhilar nodular infiltrates R>L. Bipap initally, now on NC. IV antibiotics. Surgical incision w/sutures intact, min serous drainage. PT/OT ordered. DC PLAN: anticipate return to [facility] on discharge. Wandy PONCE RN ACM
[2017-10-01] MEDS: Lisinopril 40 MG Tablet PO (09:28)
[2017-10-01] MEDS: Carvedilol 25 MG Tablet PO ×2 (09:28→21:17)
[2017-10-01] MEDS: Famotidine 20 MG Tablet PO ×2 (09:28→21:17)
[2017-10-01] MEDS: Magnesium Oxide 400 MG Tablet PO (09:29)
[2017-10-01] MEDS: Furosemide 40 MG Tablet PO (09:29)
[2017-10-01] MEDS: CHLORHEXIDINE GLUC 2% CLOTH 1 EACH TOWELETTE TOPICAL (09:29)
[2017-10-01] MEDS: amLODIPine 5 MG Tablet PO (09:29)
[2017-10-01] MEDS: guaiFENesin 1,200 MG Tablet 1200 MG PO ×2 (09:30→21:17)
--- NOTE | 2017-10-01 09:36 | CASEMGMT ---
RN CM Note/Interdisciplinary rounds: intro role of CM to patient's 3 daughters. Pt is from [facility], they are unsure if pt plans to return there or may wish to go to another facility. Daughters will be speaking with pt today. CM will continue to follow and assist with dc planning. Wandy CRAFTN RN ACM
[2017-10-01 10:06] LABS: BNP,B-Type NATRIURETIC PEPTIDE 404.4 pg/mL (0-100)
--- NOTE | 2017-10-01 12:38 | CASEMGMT ---
As per CM, pt and family may want to go to a different facility at discharge rather than [facility]. SW met w/pt, daughters Noemy(who is POA) and Teresa. Pt and family explained that they are concerned about the care at [facility], explained they were told by physician pt had a touch of pneumonia; when pt got here they were told the pneumonia is worse than that. They also spoke about pt's wound vac coming off during therapy at [facility], they bandaged the wound and continued therapy. SW asked pt about making a facility change. Pt states that she is going to let her daughters make the decision in regard to returning to [facility], as they have her best interests in mind, and she can't really make medical decisions right now. Daughters are thinking about other options, asked about TCU, we also spoke about other facilities in [place]. They state pt has used 24 of her skilled days so far at [facility]. SW explained will call TCU and bring them a list of facilities in [place]. SW called TCU, message left for [facility]. SW brought the daughters a list of SNF's in [place], let them know SW left a message for TCU. SW let daughters know we can talk tomorrow about other options, and SW can make referral wherever they would like. SW also encouraged the daughters to go visit the facilities. Daughters state understanding. SW will follow up tomorrow w/family and make referral to a different facility if this is what they choose to do. SHARLENE Perez, INSTRUCTOR WARPER
--- NOTE | 2017-10-01 19:10 | PN_ITS ---
Patient Problems: Active and Suspected Problems (Last Updated 06/23/17 @ 17:11 by Too Cote NP- C) multilobar HCAP (Acute) Acute respiratory failure with hypoxia (Acute) Subjective: Patient was seen and examined today in the ICU, she is currently on nasal cannula O2 eating supper. Patient was admitted yesterday for bilateral healthcare acquired pneumonia with sepsis as well as acute hypoxic respiratory failure. She was also noted to be hypokalemic and anemic. She has many medical comorbidities which include severe aortic stenosis, coronary artery disease, cerebral vascular disease, hypertension, paroxysmal ventricular tachycardia, history of ischemic cardiomyopathy with normal ejection fraction on last echocardiogram 09/2017, paroxysmal atrial fibrillation, and recent Bacteroides fragilis infection of the left hip. Currently patient is receiving Zosyn for antibiotic coverage. - Physical Exam General: Alert, Oriented x3, Cooperative, No apparent distress, Well developed HEENT: Atraumatic, PERRLA, Normocephalic Oral: Moist Mucosa Neck: Supple, No JVD, Trachea Midline, Thyroid Normal Size and Texture Lungs: No rhonchi, Diminished, Rales - Inspiratory rales over both lung tol[place]ino Cardiovascular: Regular rate - Paced rhythm, PMI Normal, No rub noted, No Gallop Abdomen: Bowel Sounds Present, Soft, Non Tender, Non-Distended, No hernias noted Extremities: No clubbing, No cyanosis, No edema, Capillary Refill Less than 3 Seconds Skin: No rashes, No breakdown Neurological: Cranial nerves II-XII grossly intact, Neuro grossly intact, Sensory exam intact to light touch and pain Psych/Mental Status: Normal Affect, Appropriate Vital Signs Temp Pulse Resp BP Pulse Ox 98.7 F 72 34 H 135/75 H 90 10/01/17 16:00 10/01/17 18:00 10/01/17 18:00 10/01/17 18:00 10/01/17 18:00 Oxygen Flow Rate (L/min) 5 Oxygen Delivery Method Nasal Cannula Weight: 78.6 kg Body Mass Index (BMI) 30.7 Intake and Output for Last 24 Hours 09/29/17 09/30/17 10/01/17 23:59 23:59 23:59 Intake Total 1936 / 1936 Output Total 400 / 400 Balance 1536 / 1536 Microbiology Past 72 Hours 10/01/17 07:59 Respiratory Panel (PCR) - Final Mucosa - Nasopharyngeal 10/01/17 08:40 C. difficile DNA Amplification - Final Stool 10/01/17 07:00 Streptococcus pneumoniae Antigen (M - Final Urine Catheter - Yang Laboratory Tests Past 24 Hrs 10/01/17 10/01/17 10/01/17 01:20 05:25 05:25 WBC 9.0 RBC 2.82 L Hgb 8.7 L Hct 27.3 L MCV 96.8 MCH 30.9 MCHC 31.9 L RDW 13.5 RDW Differential 45.2 H Plt Count 215 MPV 10.6 Sodium 142 Potassium 3.9 Chloride 108 H Carbon Dioxide 25.0 Anion Gap 9 BUN 12 Creatinine 0.51 L Estim Creat Clear Calc 37.12 Est GFR (MDRD) Af Amer 148 Est GFR (MDRD) Non-Af 123 BUN/Creatinine Ratio 23.4 H Glucose 172 H Calcium 8.4 L Troponin I B-Natriuretic Peptide Urine Color Urine Clarity Urine pH Ur Specific [place] Urine Protein Urine Glucose (UA) Urine Ketones Urine Occult Blood Urine Nitrite Urine Bilirubin Urine Urobilinogen Ur Leukocyte Esterase MRSA (PCR) Negative 10/01/17 10/01/17 10/01/17 05:25 05:25 07:00 WBC RBC Hgb Hct MCV MCH MCHC RDW RDW Differential Plt Count MPV Sodium Potassium Chloride Carbon Dioxide Anion Gap BUN Creatinine Estim Creat Clear Calc Est GFR (MDRD) Af Amer Est GFR (MDRD) Non-Af BUN/Creatinine Ratio Glucose Calcium Troponin I 0.216 H B-Natriuretic Peptide 404.4 H Urine Color Yellow Urine Clarity Sl. Cloudy Urine pH 5.0 Ur Specific [place] 1.020 Urine Protein 100 H Urine Glucose (UA) Normal Urine Ketones 15 H Urine Occult Blood 10 H Urine Nitrite Negative Urine Bilirubin Negative Urine Urobilinogen Normal Ur Leukocyte Esterase 25 H MRSA (PCR) Medical Necessity - Tobacco Use Smoking Status: Never smoker Assessment/Plan Active and Suspected Problems (Last Updated 06/23/17 @ 17:11 by Too Cote NP- C) multilobar HCAP (Acute) Acute respiratory failure with hypoxia (Acute) #1 acute sepsis secondary to acute bilateral healthcare acquired pneumonia- suspect gram-negative bacterial-patient will continue on Zosyn day #2 per pulmonary medicine, labs will be monitored #2 acute hypoxic respiratory failure secondary to #1-pulmonary medicine is participating in her care #3 bilateral healthcare acquired pneumonia-suspect gram-negative bacterial, continue Zosyn day #2 #4 Severe aortic stenosis #5 hypokalemia-resolved at this time #6 hypertension #7 coronary artery disease #8 anemia of chronic disease #9 hyperlipidemia #10 history of ischemic cardiomyopathy-EF now normal as of September 2017 #11 generalized debility secondary to multiple medical problems-PT and OT are seeing patient Code Visit Inpatient E&M: 52389 Subs Hosp L2
[2017-10-01] MEDS: Atorvastatin Calcium 20 MG Tablet PO (21:17)
[2017-10-01 21:38] LABS: Anion Gap 7 (5-15); BUN 18 mg/dL (7-18); BUN/Creat Ratio 29.5 RATIO (10-20); Calcium,Total 8.8 mg/dL (8.5-10.1); Chloride 109 mmol/L (98-107); Creatinine, Serum 0.61 mg/dL (0.55-1.02); EST Glomerular Filtration Rate 100 mL/min (>60); Est Glom Filt Rate - Afr Amer 121 mL/min (>60); Estimated Creatinine Clearance 37.12 ml/min; Glucose 187 mg/dL (74-106); Magnesium 1.9 mg/dL (1.6-2.6); Potassium 3.7 mmol/L (3.5-5.1); Sodium Level 142 mmol/L (136-145)
[2017-10-02] VITALS (28 sets, daily range): BP systolic 137–157; BP diastolic 47–89; PULSE 63–152; RESP 12–48; TEMP 36.9–38.1; O2SAT 83–95
--- NOTE | 2017-10-02 03:10 | RAD_ITS ---
STUDY: X-RAY CHEST REASON FOR EXAM: Female, 82 years old. Shortness of breath. TECHNIQUE: Single AP portable view of the chest. COMPARISON: 10/01/2017. FINDINGS: There again is a dual-chamber left pacemaker in stable position. Size of bilateral infiltrates markedly worse on the right side are again seen unchanged since the prior examination. There is a lucency in the left upper chest likely representing aerated lung however the exam is of suboptimal quality and there are artifacts. Pneumothorax is doubtful but difficult to exclude. There may be small bilateral pleural effusions. Sternal cerclage wires and vascular clips are present from a prior sternotomy and coronary artery bypass graft procedure (CABG). The cardiac silhouette is mildly enlarged. Normal mediastinum and kathy. Normal visualized pulmonary arteries. 3 The bony structures are unchanged. There appears to be large hiatal hernia. RAD/Chest 1 View (Portable) IMPRESSION: No significant change since previous examination. Extensive bilateral infiltrates markedly worse on the right side. Lucency in the left upper chest as described above. Follow-up examination is recommended. Electronically Signed: Art Joseph MD at 3:48 EDT Tel , Service support ,
[2017-10-02 04:24] LABS: Absolute Lymphocyte Count 0.44 X10^3/ul (0.83-4.51); Absolute Neutrophil Count 11.1 X10^3/uL (2.0-7.7); Basophil# 0.01 X10^3/uL; Basophil% 0.1 % (0-1); Hematocrit 28.2 % (37-47); Hemoglobin 9.1 g/dl (12.0-15.0); Lymphocyte # 0.44 X10^3/ul (4.0); Lymphocyte % 3.7 % (19-41); Mean Corp Hgb Conc 32.3 g/gl (32-36); Mean Corpuscular Hgb 31.1 pg (27.0-32.0); Mean Corpuscular Volume 96.2 fL (81-99); Mean Platelet Vol. 10.7 fl (6.2-12.0); Monocyte# 0.42 X10^3/uL; Monocyte% 3.5 % (0-10); Neutrophil # 11.05 X10^3/uL (2.7-7.7); Neutrophil % 92.5 % (47-70); Platelet Count 240 K/mm3 (150-450); RBC Distribution Width CV 13.7 % (11.6-14.6); RBC Distribution Width SD 45.2 fl (35.1-43.9); Red Blood Count 2.93 M/mm3 (4.2-5.4); White Blood Count 11.9 K/mm3 (4.4-11.0)
[2017-10-02 04:26] LABS: Differential Indicated SCAN CRITERIA MET; POSITIVE COUNT NO; POSITIVE DIFFERENTIAL YES; POSITIVE MORPHOLOGY NO
[2017-10-02 04:29] LABS: Anion Gap 7 (5-15); BUN 19 mg/dL (7-18); BUN/Creat Ratio 36.2 RATIO (10-20); Calcium,Total 8.8 mg/dL (8.5-10.1); Chloride 110 mmol/L (98-107); Creatinine, Serum 0.52 mg/dL (0.55-1.02); EST Glomerular Filtration Rate 119 mL/min (>60); Est Glom Filt Rate - Afr Amer 144 mL/min (>60); Estimated Creatinine Clearance 37.12 ml/min; Glucose 169 mg/dL (74-106); Potassium 3.8 mmol/L (3.5-5.1); Sodium Level 144 mmol/L (136-145)
[2017-10-02] MEDS: Piperacil/Tazobactam 3.375 GM/50 ML ML IV ×3 (05:29→21:58)
--- NOTE | 2017-10-02 06:46 | PCM.PN.INT ---
Subjective: The patient was seen and examined at the bedside this morning. Events from the last 24 hours have been reviewed. The patient currently has a low-grade fever, but remains hemodynamically stable. She has a 5 L/min supplemental oxygen requirement. The patient is currently overall net +1.6 L for the admission. Objective: The patient's most recent lab work, culture data and imaging studies have all been personally reviewed. C. difficile was negative. Respiratory viral panel was negative. Strep and urine Legionella antigens were both negative. Blood and urine cultures are pending. Surface echocardiogram dated July 2016 revealed normal LV size and function with an ejection fraction of 55%. Pulmonary artery systolic pressure was estimated to be 48 mmHg. General: Alert, Cooperative, No apparent distress HEENT: Atraumatic, PERRLA, Normocephalic Oral: No Gingival or Mucosal Lesions/ Ulcerations Neck: Supple, No Nodes, Trachea Midline Lungs: No rhonchi, No wheeze, Diminished, Rales Cardiovascular: Regular rate, Regular Rhythm, Normal S1, Normal S2, No murmurs Abdomen: Bowel Sounds Present, Soft, Non Tender Extremities: No clubbing, No cyanosis, Edema Skin: - - No significant change from previous. Musculoskeletal: No Muscle Wasting Lymphatic: No Cervical, Supraclavicular, or Inguinal Adenopathy Neurological: Neuro grossly intact Psych/Mental Status: Normal Affect, Appropriate Vital Signs Temp Pulse Resp BP Pulse Ox 99.2 F H 66 30 H 149/60 H 93 10/02/17 06:00 10/02/17 06:00 10/02/17 06:00 10/02/17 06:00 10/02/17 06:00 Oxygen Flow Rate (L/min) 6 Oxygen Delivery Method Nasal Cannula Weight: 175 lb 7.807 oz Body Mass Index (BMI) 30.7 Intake and Output for Last 24 Hours 09/30/17 10/01/17 10/02/17 23:59 23:59 23:59 Intake Total 1936 / 1936 388.7 / 388.7 Output Total 400 / 400 250 / 250 Balance 1536 / 1536 138.7 / 138.7 Labs (Last 48 Hours) 10/01/17 10/01/17 10/01/17 01:20 05:25 05:25 WBC 9.0 RBC 2.82 L Hgb 8.7 L Hct 27.3 L MCV 96.8 MCH 30.9 MCHC 31.9 L RDW 13.5 RDW Differential 45.2 H Plt Count 215 MPV 10.6 Immature Gran % (Auto) Neut % (Auto) Lymph % (Auto) [place] % (Auto) Eos % (Auto) Baso % (Auto) Absolute Neuts (auto) Absolute Lymphs (auto) Total Counted Sodium 142 Potassium 3.9 Chloride 108 H Carbon Dioxide 25.0 Anion Gap 9 BUN 12 Creatinine 0.51 L Estim Creat Clear Calc 37.12 Est GFR (MDRD) Af Amer 148 Est GFR (MDRD) Non-Af 123 BUN/Creatinine Ratio 23.4 H Glucose 172 H Calcium 8.4 L Magnesium Troponin I B-Natriuretic Peptide Urine Color Urine Clarity Urine pH Ur Specific [place] Urine Protein Urine Glucose (UA) Urine Ketones Urine Occult Blood Urine Nitrite Urine Bilirubin Urine Urobilinogen Ur Leukocyte Esterase MRSA (PCR) Negative 10/01/17 10/01/17 10/01/17 05:25 05:25 07:00 WBC RBC Hgb Hct MCV MCH MCHC RDW RDW Differential Plt Count MPV Immature Gran % (Auto) Neut % (Auto) Lymph % (Auto) [place] % (Auto) Eos % (Auto) Baso % (Auto) Absolute Neuts (auto) Absolute Lymphs (auto) Total Counted Sodium Potassium Chloride Carbon Dioxide Anion Gap BUN Creatinine Estim Creat Clear Calc Est GFR (MDRD) Af Amer Est GFR (MDRD) Non-Af BUN/Creatinine Ratio Glucose Calcium Magnesium Troponin I 0.216 H B-Natriuretic Peptide 404.4 H Urine Color Yellow Urine Clarity Sl. Cloudy Urine pH 5.0 Ur Specific [place] 1.020 Urine Protein 100 H Urine Glucose (UA) Normal Urine Ketones 15 H Urine Occult Blood 10 H Urine Nitrite Negative Urine Bilirubin Negative Urine Urobilinogen Normal Ur Leukocyte Esterase 25 H MRSA (PCR) 10/01/17 10/02/17 10/02/17 21:15 04:10 04:10 WBC 11.9 H RBC 2.93 L Hgb 9.1 L Hct 28.2 L MCV 96.2 MCH 31.1 MCHC 32.3 RDW 13.7 RDW Differential 45.2 H Plt Count 240 MPV 10.7 Immature Gran % (Auto) 0.200 Neut % (Auto) 92.5 H Lymph % (Auto) 3.7 L [place] % (Auto) 3.5 Eos % (Auto) 0.0 Baso % (Auto) 0.1 Absolute Neuts (auto) 11.1 H Absolute Lymphs (auto) 0.44 L Total Counted Not Reportable Sodium 142 144 Potassium 3.7 3.8 Chloride 109 H 110 H Carbon Dioxide 26.0 27.0 Anion Gap 7 7 BUN 18 19 H Creatinine 0.61 0.52 L Estim Creat Clear Calc 37.12 37.12 Est GFR (MDRD) Af Amer 121 144 Est GFR (MDRD) Non-Af 100 119 BUN/Creatinine Ratio 29.5 H 36.2 H Glucose 187 H 169 H Calcium 8.8 8.8 Magnesium 1.9 Troponin I B-Natriuretic Peptide Urine Color Urine Clarity Urine pH Ur Specific [place] Urine Protein Urine Glucose (UA) Urine Ketones Urine Occult Blood Urine Nitrite Urine Bilirubin Urine Urobilinogen Ur Leukocyte Esterase MRSA (PCR) Microbiology 10/01/17 07:59 Mucosa - Nasopharyngeal Respiratory Panel (PCR) - Final 10/01/17 08:40 Stool C. difficile DNA Amplification - Final 10/01/17 07:00 Urine Catheter - Yang Streptococcus pneumoniae Antigen (M - Final Clinical Impression(s) from Imaging Studies Chest X-Ray 09/30/17 22:05 IMPRESSION: Multiple bilateral perihilar nodules or nodular-type infiltrates more severe on the right. This probably represents pulmonary edema however cannot exclude inflammatory disease or neoplasm. Clinical correlation recommended Electronically Signed: Zac Chandler MD at 22:48 EDT , Service support , Chest X-Ray 10/01/17 07:10 IMPRESSION: Progressive bilateral airspace disease worse in the right hemithorax. Electronically Signed: Reggie Castillo MD at 9:37 EDT Tel [phone], Service support , Chest X-Ray 10/02/17 03:10 IMPRESSION: No significant change since previous examination. Extensive bilateral infiltrates markedly worse on the right side. Lucency in the left upper chest as described above. Follow-up examination is recommended. Electronically Signed: Art Joseph MD at 3:48 EDT Tel , Service support , Medical Necessity - Tobacco Use Smoking Status: Never smoker Assessment/Plan Active and Suspected Problems (Last Updated 06/23/17 @ 17:11 by Too Cote BLEACH BOILER PULLER-C) multilobar HCAP (Acute) Acute respiratory failure with hypoxia (Acute) RECOMMENDATIONS: 1. Continue broad-spectrum antibiotics, pending finalized infectious workup. 2. Administer IV Lasix 40 mg twice daily 3. Recheck troponin level 4. Wean patient from BiPAP. Continue supplemental oxygen to maintain saturations at or above 90%. 5. Continue home cardiac medications 6. Encourage incentive spirometer use and mobilize patient as tolerated. IMPRESSIONS: 1. Acute hypoxemic respiratory failure, likely secondary to healthcare associated pneumonia The patient presented with dyspnea and required the initiation of BiPAP support. She has responded favorably from a clinical perspective to the use of BiPAP and broad-spectrum antibiotics in treatment for multifocal pneumonia. Given the patient's recent hospitalizations and residence at a senior care facility, she will be maintained on broad-spectrum antibiotics in treatment for HCAP. The patient will be weaned from continuous BiPAP support and transition to supplemental oxygen via nasal cannula. Oxygen saturation should be maintained at or above 90%. Encourage incentive spirometer use and mobilize patient as tolerated. The patient's p.o. Lasix regimen will be transitioned to IV Lasix 40 mg twice daily, with plans to reevaluate fluid status on a daily basis. 2. 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 This appears to have resolved at this time. 3. Personal history of coronary artery disease status post CABG/aortic valve disease status post replacement/ICD in situ Continue home cardiac medications per outpatient regimen. 4. Advanced age/neuropathy/hypertension/hyperlipidemia/GERD Complicates care, management, recovery and prognosis. The patient is a documented DNR CCA on file. Physical therapy to continue to work with patient. This note was generated with Dat[employer] software. It may contain incorrect words, spelling, and punctuation that were not noted in checking the note before signing. Code Visit Inpatient E&M: 14562 [facility] Hosp L3
--- NOTE | 2017-10-02 06:50 | PN_ITS ---
Subjective: The patient was seen and examined at the bedside this morning. Events from the last 24 hours have been reviewed. The patient currently has a low-grade fever, but remains hemodynamically stable. She has a 5 L/min supplemental oxygen requirement. The patient is currently overall net +1.6 L for the admission. Objective: The patient's most recent lab work, culture data and imaging studies have all been personally reviewed. C. difficile was negative. Respiratory viral panel was negative. Strep and urine Legionella antigens were both negative. Blood and urine cultures are pending. Surface echocardiogram dated July 2016 revealed normal LV size and function with an ejection fraction of 55%. Pulmonary artery systolic pressure was estimated to be 48 mmHg. General: Alert, Cooperative, No apparent distress HEENT: Atraumatic, PERRLA, Normocephalic Oral: No Gingival or Mucosal Lesions/ Ulcerations Neck: Supple, No Nodes, Trachea Midline Lungs: No rhonchi, No wheeze, Diminished, Rales Cardiovascular: Regular rate, Regular Rhythm, Normal S1, Normal S2, No murmurs Abdomen: Bowel Sounds Present, Soft, Non Tender Extremities: No clubbing, No cyanosis, Edema Skin: - - No significant change from previous. Musculoskeletal: No Muscle Wasting Lymphatic: No Cervical, Supraclavicular, or Inguinal Adenopathy Neurological: Neuro grossly intact Psych/Mental Status: Normal Affect, Appropriate Vital Signs Temp Pulse Resp BP Pulse Ox 99.2 F H 66 30 H 149/60 H 93 10/02/17 06:00 10/02/17 06:00 10/02/17 06:00 10/02/17 06:00 10/02/17 06:00 Oxygen Flow Rate (L/min) 6 Oxygen Delivery Method Nasal Cannula Weight: 175 lb 7.807 oz Body Mass Index (BMI) 30.7 Intake and Output for Last 24 Hours 09/30/17 10/01/17 10/02/17 23:59 23:59 23:59 Intake Total 1936 / 1936 388.7 / 388.7 Output Total 400 / 400 250 / 250 Balance 1536 / 1536 138.7 / 138.7 Labs (Last 48 Hours) 10/01/17 10/01/17 10/01/17 01:20 05:25 05:25 WBC 9.0 RBC 2.82 L Hgb 8.7 L Hct 27.3 L MCV 96.8 MCH 30.9 MCHC 31.9 L RDW 13.5 RDW Differential 45.2 H Plt Count 215 MPV 10.6 Immature Gran % (Auto) Neut % (Auto) Lymph % (Auto) [place] % (Auto) Eos % (Auto) Baso % (Auto) Absolute Neuts (auto) Absolute Lymphs (auto) Total Counted Sodium 142 Potassium 3.9 Chloride 108 H Carbon Dioxide 25.0 Anion Gap 9 BUN 12 Creatinine 0.51 L Estim Creat Clear Calc 37.12 Est GFR (MDRD) Af Amer 148 Est GFR (MDRD) Non-Af 123 BUN/Creatinine Ratio 23.4 H Glucose 172 H Calcium 8.4 L Magnesium Troponin I B-Natriuretic Peptide Urine Color Urine Clarity Urine pH Ur Specific [place] Urine Protein Urine Glucose (UA) Urine Ketones Urine Occult Blood Urine Nitrite Urine Bilirubin Urine Urobilinogen Ur Leukocyte Esterase MRSA (PCR) Negative 10/01/17 10/01/17 10/01/17 05:25 05:25 07:00 WBC RBC Hgb Hct MCV MCH MCHC RDW RDW Differential Plt Count MPV Immature Gran % (Auto) Neut % (Auto) Lymph % (Auto) [place] % (Auto) Eos % (Auto) Baso % (Auto) Absolute Neuts (auto) Absolute Lymphs (auto) Total Counted Sodium Potassium Chloride Carbon Dioxide Anion Gap BUN Creatinine Estim Creat Clear Calc Est GFR (MDRD) Af Amer Est GFR (MDRD) Non-Af BUN/Creatinine Ratio Glucose Calcium Magnesium Troponin I 0.216 H B-Natriuretic Peptide 404.4 H Urine Color Yellow Urine Clarity Sl. Cloudy Urine pH 5.0 Ur Specific [place] 1.020 Urine Protein 100 H Urine Glucose (UA) Normal Urine Ketones 15 H Urine Occult Blood 10 H Urine Nitrite Negative Urine Bilirubin Negative Urine Urobilinogen Normal Ur Leukocyte Esterase 25 H MRSA (PCR) 10/01/17 10/02/17 10/02/17 21:15 04:10 04:10 WBC 11.9 H RBC 2.93 L Hgb 9.1 L Hct 28.2 L MCV 96.2 MCH 31.1 MCHC 32.3 RDW 13.7 RDW Differential 45.2 H Plt Count 240 MPV 10.7 Immature Gran % (Auto) 0.200 Neut % (Auto) 92.5 H Lymph % (Auto) 3.7 L [place] % (Auto) 3.5 Eos % (Auto) 0.0 Baso % (Auto) 0.1 Absolute Neuts (auto) 11.1 H Absolute Lymphs (auto) 0.44 L Total Counted Not Reportable Sodium 142 144 Potassium 3.7 3.8 Chloride 109 H 110 H Carbon Dioxide 26.0 27.0 Anion Gap 7 7 BUN 18 19 H Creatinine 0.61 0.52 L Estim Creat Clear Calc 37.12 37.12 Est GFR (MDRD) Af Amer 121 144 Est GFR (MDRD) Non-Af 100 119 BUN/Creatinine Ratio 29.5 H 36.2 H Glucose 187 H 169 H Calcium 8.8 8.8 Magnesium 1.9 Troponin I B-Natriuretic Peptide Urine Color Urine Clarity Urine pH Ur Specific [place] Urine Protein Urine Glucose (UA) Urine Ketones Urine Occult Blood Urine Nitrite Urine Bilirubin Urine Urobilinogen Ur Leukocyte Esterase MRSA (PCR) Microbiology 10/01/17 07:59 Mucosa - Nasopharyngeal Respiratory Panel (PCR) - Final 10/01/17 08:40 Stool C. difficile DNA Amplification - Final 10/01/17 07:00 Urine Catheter - Yang Streptococcus pneumoniae Antigen (M - Final Clinical Impression(s) from Imaging Studies Chest X-Ray 09/30/17 22:05 IMPRESSION: Multiple bilateral perihilar nodules or nodular-type infiltrates more severe on the right. This probably represents pulmonary edema however cannot exclude inflammatory disease or neoplasm. Clinical correlation recommended Electronically Signed: Zac Chandler MD at 22:48 EDT , Service support , Chest X-Ray 10/01/17 07:10 IMPRESSION: Progressive bilateral airspace disease worse in the right hemithorax. Electronically Signed: Reggie Castillo MD at 9:37 EDT Tel [phone], Service support , Chest X-Ray 10/02/17 03:10 IMPRESSION: No significant change since previous examination. Extensive bilateral infiltrates markedly worse on the right side. Lucency in the left upper chest as described above. Follow-up examination is recommended. Electronically Signed: Art Joseph MD at 3:48 EDT Tel , Service support , Medical Necessity - Tobacco Use Smoking Status: Never smoker Assessment/Plan Active and Suspected Problems (Last Updated 06/23/17 @ 17:11 by Too Cote MAPLE SUGAR MAKER- C) multilobar HCAP (Acute) Acute respiratory failure with hypoxia (Acute) RECOMMENDATIONS: 1. Continue broad-spectrum antibiotics, pending finalized infectious workup. 2. Administer IV Lasix 40 mg twice daily 3. Recheck troponin level 4. Wean patient from BiPAP. Continue supplemental oxygen to maintain saturations at or above 90%. 5. Continue home cardiac medications 6. Encourage incentive spirometer use and mobilize patient as tolerated. IMPRESSIONS: 1. Acute hypoxemic respiratory failure, likely secondary to healthcare associated pneumonia The patient presented with dyspnea and required the initiation of BiPAP support. She has responded favorably from a clinical perspective to the use of BiPAP and broad-spectrum antibiotics in treatment for multifocal pneumonia. Given the patient's recent hospitalizations and residence at a residential facility, she will be maintained on broad-spectrum antibiotics in treatment for HCAP. The patient will be weaned from continuous BiPAP support and transition to supplemental oxygen via nasal cannula. Oxygen saturation should be maintained at or above 90%. Encourage incentive spirometer use and mobilize patient as tolerated. The patient's p.o. Lasix regimen will be transitioned to IV Lasix 40 mg twice daily, with plans to reevaluate fluid status on a daily basis. 2. 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 This appears to have resolved at this time. 3. Personal history of coronary artery disease status post CABG/aortic valve disease status post replacement/ICD in situ Continue home cardiac medications per outpatient regimen. 4. Advanced age/neuropathy/hypertension/hyperlipidemia/GERD Complicates care, management, recovery and prognosis. The patient is a documented DNR CCA on file. Physical therapy to continue to work with patient. This note was generated with Postachioation software. It may contain incorrect words, spelling, and punctuation that were not noted in checking the note before signing. Code Visit Inpatient E&M: 69235 [facility] Hosp L3
[2017-10-02] MEDS: Furosemide 40 MG/4 ML Vial IV ×2 (07:49→17:07)
[2017-10-02] MEDS: 0.9% NaCl Peripheral Flush Adult/Peds IV ×4 (07:50→22:02)
[2017-10-02] MEDS: Aspirin 325 MG Tablet PO (07:50)
--- NOTE | 2017-10-02 07:50 | PCM.PN.ORT ---
Patient Problems: Active and Suspected Problems (Last Updated 06/23/17 @ 17:11 by Too Cote PAINT MIXER HAND-C) multilobar HCAP (Acute) Acute respiratory failure with hypoxia (Acute) Subjective: The patient was sitting in bed upon examination. Patient is currently in the ICU due to pneumonia. Patient started having problems over the weekend. She was admitted. Patient previously underwent an irrigation and debridement left hip with acetabular liner and femoral head revision. This was performed on September 16, 2017. Patient states she has no pain in the hip and is doing very well with regards to her hip. Objective: Temperature = 99.2?F, respirations 29, currently on 6 L of nasal oxygen. Patient is able to plantarflex and dorsiflex actively. Sensation is intact to light touch to saphenous, sural, superficial and deep peroneal, and tibial distribution. Incision is healing well without erythema, active drainage, wound dehiscence, or signs of infection. Sutures are in place. Sutures were removed today and Mepilex silver dressing was placed. Negative Homans bilaterally, negative signs and symptoms of DVT. - Physical Exam General: Alert, Oriented x3, Cooperative, No apparent distress Vital Signs Temp Pulse Resp BP Pulse Ox 99.2 F H 75 29 H 148/64 H 90 10/02/17 06:00 10/02/17 07:00 10/02/17 07:00 10/02/17 07:00 10/02/17 07:00 Oxygen Flow Rate (L/min) 6 Oxygen Delivery Method Nasal Cannula Weight: 79.6 kg Body Mass Index (BMI) 30.7 Intake and Output for Last 24 Hours 09/30/17 10/01/17 10/02/17 23:59 23:59 23:59 Intake Total 1936 / 1936 388.7 / 388.7 Output Total 400 / 400 250 / 250 Balance 1536 / 1536 138.7 / 138.7 Microbiology Past 72 Hours 10/01/17 07:59 Respiratory Panel (PCR) - Final Mucosa - Nasopharyngeal 10/01/17 08:40 C. difficile DNA Amplification - Final Stool 10/01/17 07:00 Streptococcus pneumoniae Antigen (M - Final Urine Catheter - Yang Laboratory Tests Past 24 Hrs 10/01/17 10/01/17 10/01/17 05:25 05:25 21:15 WBC RBC Hgb Hct MCV MCH MCHC RDW RDW Differential Plt Count MPV Immature Gran % (Auto) Neut % (Auto) Lymph % (Auto) [place] % (Auto) Eos % (Auto) Baso % (Auto) Absolute Neuts (auto) Absolute Lymphs (auto) Total Counted Sodium 142 Potassium 3.7 Chloride 109 H Carbon Dioxide 26.0 Anion Gap 7 BUN 18 Creatinine 0.61 Estim Creat Clear Calc 37.12 Est GFR (MDRD) Af Amer 121 Est GFR (MDRD) Non-Af 100 BUN/Creatinine Ratio 29.5 H Glucose 187 H Calcium 8.8 Magnesium 1.9 Troponin I 0.216 H B-Natriuretic Peptide 404.4 H 10/02/17 10/02/17 04:10 04:10 WBC 11.9 H RBC 2.93 L Hgb 9.1 L Hct 28.2 L MCV 96.2 MCH 31.1 MCHC 32.3 RDW 13.7 RDW Differential 45.2 H Plt Count 240 MPV 10.7 Immature Gran % (Auto) 0.200 Neut % (Auto) 92.5 H Lymph % (Auto) 3.7 L [place] % (Auto) 3.5 Eos % (Auto) 0.0 Baso % (Auto) 0.1 Absolute Neuts (auto) 11.1 H Absolute Lymphs (auto) 0.44 L Total Counted Not Reportable Sodium 144 Potassium 3.8 Chloride 110 H Carbon Dioxide 27.0 Anion Gap 7 BUN 19 H Creatinine 0.52 L Estim Creat Clear Calc 37.12 Est GFR (MDRD) Af Amer 144 Est GFR (MDRD) Non-Af 119 BUN/Creatinine Ratio 36.2 H Glucose 169 H Calcium 8.8 Magnesium Troponin I B-Natriuretic Peptide Medical Necessity - Tobacco Use Smoking Status: Never smoker Assessment/Plan Active and Suspected Problems (Last Updated 06/23/17 @ 17:11 by Too Cote NP-C) multilobar HCAP (Acute) Acute respiratory failure with hypoxia (Acute) 1. S/P irrigation debridement left total hip replacement with acetabular liner and femoral head revision on September 16, 2017, currently 2 weeks postoperatively. Patient was admitted to the hospital due to pneumonia and is currently in the intensive care unit being treated with antibiotics. 2. Continue Pain Medications: Tylenol 3. DVT Prophylaxis: Patient currently on aspirin 325 mg twice daily for DVT prophylaxis. We will switch her to 81 mg aspirin twice daily for an additional 2 weeks then patient may go back to her normal 81 mg aspirin daily. 4. PT/OT: Weightbearing as tolerated 5. H & H: 9.1/28.2 6. Encouraged Incentive Spirometry 7. Continue medical management per medicine and hard rock miner: Currently being treated for pneumonia 8. Incision is healing well without signs of infection. Today the sutures were removed and a Mepilex silver dressing was placed over the incision. Continue to monitor this area for any erythema or drainage. 9. Disposition: Plan will be to switch to 81 mg aspirin twice daily for an additional 2 weeks. We will keep the Mepilex silver dressing over the incision while in the hospital. Once patient is discharged from the hospital she will need scheduled follow-up with orthopedics. If there are any complications or concerns please contact Dr. Sukh Parr.
--- NOTE | 2017-10-02 07:51 | NURSING ---
Dangelo from [facility] here to remove sutures from left hip. mepilex silver dressing applied
--- NOTE | 2017-10-02 09:41 | CASEMGMT ---
Addendum entered by Crystal Casas 10/02/17 10:55: SW spoke w/daughters Teresa and Noemy in room, they would like pt to go to TCU, and pt is in agreement. SW confirmed they will have a bed available for pt. 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 SW did explain to pt and daughters also that the length of stay in TCU is usually 30 days or less, so if pt needed to be in a facility longer than this, the SW in TCU will work w/pt and family on placement from TCU. Pt and daughters state understanding. Daughters then asked what to do about [facility]. SW explained will call [facility] and let them know pt is not returning. Daughters plan to bean picker machine operator pt's belongings, and they say they will talk to [facility] when they go to bean picker machine operator the belongings about what happened while pt was there. SW called W, let Zulema know pt will not be returning, daughters will be there to bean picker machine operator pt's belongings and will follow up w/[facility] in regard to why. Green sheet placed on chart in anticipation of discharge on the weekend. SHARLENE Perez, PORT STEWARD Original Note: Addendum entered by Crystal Casas 10/02/17 09:55: SW spoke w/Keely in TCU, they can take pt. SW called daughter Noemy who is POA, message left to call this SW back to let SW know what they would like to do when pt is discharged. SW will continue to follow. SHARLENE Perez, PORT STEWARD Original Note: SW spoke w/pt this morning, she states she does not know if her daughters have made a decision in regard to where pt should go at discharge. She states her daughters will be in this morning, SW explained will check in with them when they come in. SW called Keely in TCU, message left inquiring if TCU will be a possibility for pt. SW will continue to follow. SHARLENE Perez, PORT STEWARD
[2017-10-02] MEDS: Carvedilol 25 MG Tablet PO ×2 (10:58→21:42)
[2017-10-02] MEDS: Famotidine 20 MG Tablet PO ×2 (10:58→21:42)
[2017-10-02] MEDS: amLODIPine 5 MG Tablet PO (10:58)
[2017-10-02] MEDS: Magnesium Oxide 400 MG Tablet PO (10:58)
[2017-10-02] MEDS: Lisinopril 40 MG Tablet PO (10:58)
[2017-10-02] MEDS: guaiFENesin 1,200 MG Tablet 1200 MG PO ×2 (10:59→21:42)
[2017-10-02] MEDS: 0.9% NaCl IVPB Med Flush (250 mL) 15 ML IV (13:53)
--- NOTE | 2017-10-02 16:05 | PCM.PROGNOTE ---
Patient Problems: Active and Suspected Problems (Last Updated 06/23/17 @ 17:11 by Too Cote MACHINE OPERATOR PICKER-C) multilobar HCAP (Acute) Acute respiratory failure with hypoxia (Acute) Subjective: Patient was seen and examined today, pulmonary medicine feels she is stable for transfer to the floor. Patient is currently on nasal cannula O2 - Physical Exam General: Alert, Oriented x3, Cooperative, No apparent distress, Well developed, Well nourished HEENT: Atraumatic, PERRLA, EOMI, Normocephalic Oral: Moist Mucosa Neck: Supple, No JVD, No Nuchal Rigidity, Trachea Midline, Thyroid Normal Size and Texture Lungs: Normal air movement, Rales - Inspiratory rales are noted over the patient's lower lung tolentino bilaterally Cardiovascular: PMI Normal, Irregular Rate - Patient has PACs and paced rhythm, Murmur - 2/6 systolic murmur is noted at the apex, No rub noted Abdomen: Bowel Sounds Present, Soft, Non Tender, Non-Distended, No hernias noted Extremities: No clubbing, No cyanosis, Capillary Refill Less than 3 Seconds Skin: No rashes, No breakdown Neurological: Cranial nerves II-XII grossly intact, Neuro grossly intact, Sensory exam intact to light touch and pain Psych/Mental Status: Normal Affect, Appropriate, Alert and oriented to time, place, person, mood and affect Vital Signs Temp Pulse Resp BP Pulse Ox 99.1 F 94 18 142/50 H 93 10/02/17 13:00 10/02/17 15:00 10/02/17 13:00 10/02/17 13:00 10/02/17 13:00 Oxygen Flow Rate (L/min) 5 Oxygen Delivery Method Nasal Cannula Weight: 79.6 kg Body Mass Index (BMI) 30.7 Intake and Output for Last 24 Hours 09/30/17 10/01/17 10/02/17 23:59 23:59 23:59 Intake Total 1936 / 1936 573.7 / 573.7 Output Total 400 / 400 1150 / 1150 Balance 1536 / 1536 -576.3 / -576.3 Microbiology Past 72 Hours 10/02/17 07:40 Gram Stain - Final Sputum, Expectorated/Coughed 10/01/17 07:00 Urine Culture - Preliminary Urine Catheter - Yang Culture exhibits no growth. 10/01/17 07:59 Respiratory Panel (PCR) - Final Mucosa - Nasopharyngeal 10/01/17 08:40 C. difficile DNA Amplification - Final Stool 10/01/17 07:00 Streptococcus pneumoniae Antigen (M - Final Urine Catheter - Yang Laboratory Tests Past 24 Hrs 10/01/17 10/02/17 10/02/17 21:15 04:10 04:10 WBC 11.9 H RBC 2.93 L Hgb 9.1 L Hct 28.2 L MCV 96.2 MCH 31.1 MCHC 32.3 RDW 13.7 RDW Differential 45.2 H Plt Count 240 MPV 10.7 Immature Gran % (Auto) 0.200 Neut % (Auto) 92.5 H Lymph % (Auto) 3.7 L [place] % (Auto) 3.5 Eos % (Auto) 0.0 Baso % (Auto) 0.1 Absolute Neuts (auto) 11.1 H Absolute Lymphs (auto) 0.44 L Total Counted Not Reportable Sodium 142 144 Potassium 3.7 3.8 Chloride 109 H 110 H Carbon Dioxide 26.0 27.0 Anion Gap 7 7 BUN 18 19 H Creatinine 0.61 0.52 L Estim Creat Clear Calc 37.12 37.12 Est GFR (MDRD) Af Amer 121 144 Est GFR (MDRD) Non-Af 100 119 BUN/Creatinine Ratio 29.5 H 36.2 H Glucose 187 H 169 H Calcium 8.8 8.8 Magnesium 1.9 Troponin I 10/02/17 04:10 WBC RBC Hgb Hct MCV MCH MCHC RDW RDW Differential Plt Count MPV Immature Gran % (Auto) Neut % (Auto) Lymph % (Auto) [place] % (Auto) Eos % (Auto) Baso % (Auto) Absolute Neuts (auto) Absolute Lymphs (auto) Total Counted Sodium Potassium Chloride Carbon Dioxide Anion Gap BUN Creatinine Estim Creat Clear Calc Est GFR (MDRD) Af Amer Est GFR (MDRD) Non-Af BUN/Creatinine Ratio Glucose Calcium Magnesium Troponin I 0.073 H Medical Necessity - Tobacco Use Smoking Status: Never smoker Assessment/Plan Active and Suspected Problems (Last Updated 06/23/17 @ 17:11 by Too Cote, MACHINE OPERATOR PICKER-C) multilobar HCAP (Acute) Acute respiratory failure with hypoxia (Acute) #1 acute sepsis secondary to acute bilateral healthcare acquired pneumonia-suspect gram-negative bacterial-patient will continue on Zosyn day #3 per pulmonary medicine, labs will be monitored #2 acute hypoxic respiratory failure secondary to #1-pulmonary medicine is participating in her care #3 bilateral healthcare acquired pneumonia-suspect gram-negative bacterial, continue Zosyn day #3 #4 Severe aortic stenosis #5 hypokalemia-resolved at this time #6 hypertension #7 coronary artery disease #8 anemia of chronic disease #9 hyperlipidemia #10 history of ischemic cardiomyopathy-EF now normal as of September 2017 #11 generalized debility secondary to multiple medical problems-PT and OT are seeing patient #12 elevation of troponin-I do not believe this is significant #13 elevation of blood sugars-patient's diet will be changed on 1800-calorie ADA diet, patient does not have a history of diabetes Code Visit Inpatient E&M: 83935 Subs Hosp L2
--- NOTE | 2017-10-02 16:10 | PN_ITS ---
Patient Problems: Active and Suspected Problems (Last Updated 06/23/17 @ 17:11 by Too Cote DIGITAL COMPOSER- C) multilobar HCAP (Acute) Acute respiratory failure with hypoxia (Acute) Subjective: Patient was seen and examined today, pulmonary medicine feels she is stable for transfer to the floor. Patient is currently on nasal cannula O2 - Physical Exam General: Alert, Oriented x3, Cooperative, No apparent distress, Well developed, Well nourished HEENT: Atraumatic, PERRLA, EOMI, Normocephalic Oral: Moist Mucosa Neck: Supple, No JVD, No Nuchal Rigidity, Trachea Midline, Thyroid Normal Size and Texture Lungs: Normal air movement, Rales - Inspiratory rales are noted over the patient 's lower lung tolentino bilaterally Cardiovascular: PMI Normal, Irregular Rate - Patient has PACs and paced rhythm, Murmur - 2/6 systolic murmur is noted at the apex, No rub noted Abdomen: Bowel Sounds Present, Soft, Non Tender, Non-Distended, No hernias noted Extremities: No clubbing, No cyanosis, Capillary Refill Less than 3 Seconds Skin: No rashes, No breakdown Neurological: Cranial nerves II-XII grossly intact, Neuro grossly intact, Sensory exam intact to light touch and pain Psych/Mental Status: Normal Affect, Appropriate, Alert and oriented to time, place, person, mood and affect Vital Signs Temp Pulse Resp BP Pulse Ox 99.1 F 94 18 142/50 H 93 10/02/17 13:00 10/02/17 15:00 10/02/17 13:00 10/02/17 13:00 10/02/17 13:00 Oxygen Flow Rate (L/min) 5 Oxygen Delivery Method Nasal Cannula Weight: 79.6 kg Body Mass Index (BMI) 30.7 Intake and Output for Last 24 Hours 09/30/17 10/01/17 10/02/17 23:59 23:59 23:59 Intake Total 1936 / 1936 573.7 / 573.7 Output Total 400 / 400 1150 / 1150 Balance 1536 / 1536 -576.3 / -576.3 Microbiology Past 72 Hours 10/02/17 07:40 Gram Stain - Final Sputum, Expectorated/Coughed 10/01/17 07:00 Urine Culture - Preliminary Urine Catheter - Yang Culture exhibits no growth. 10/01/17 07:59 Respiratory Panel (PCR) - Final Mucosa - Nasopharyngeal 10/01/17 08:40 C. difficile DNA Amplification - Final Stool 10/01/17 07:00 Streptococcus pneumoniae Antigen (M - Final Urine Catheter - Yang Laboratory Tests Past 24 Hrs 10/01/17 10/02/17 10/02/17 21:15 04:10 04:10 WBC 11.9 H RBC 2.93 L Hgb 9.1 L Hct 28.2 L MCV 96.2 MCH 31.1 MCHC 32.3 RDW 13.7 RDW Differential 45.2 H Plt Count 240 MPV 10.7 Immature Gran % (Auto) 0.200 Neut % (Auto) 92.5 H Lymph % (Auto) 3.7 L [place] % (Auto) 3.5 Eos % (Auto) 0.0 Baso % (Auto) 0.1 Absolute Neuts (auto) 11.1 H Absolute Lymphs (auto) 0.44 L Total Counted Not Reportable Sodium 142 144 Potassium 3.7 3.8 Chloride 109 H 110 H Carbon Dioxide 26.0 27.0 Anion Gap 7 7 BUN 18 19 H Creatinine 0.61 0.52 L Estim Creat Clear Calc 37.12 37.12 Est GFR (MDRD) Af Amer 121 144 Est GFR (MDRD) Non-Af 100 119 BUN/Creatinine Ratio 29.5 H 36.2 H Glucose 187 H 169 H Calcium 8.8 8.8 Magnesium 1.9 Troponin I 10/02/17 04:10 WBC RBC Hgb Hct MCV MCH MCHC RDW RDW Differential Plt Count MPV Immature Gran % (Auto) Neut % (Auto) Lymph % (Auto) [place] % (Auto) Eos % (Auto) Baso % (Auto) Absolute Neuts (auto) Absolute Lymphs (auto) Total Counted Sodium Potassium Chloride Carbon Dioxide Anion Gap BUN Creatinine Estim Creat Clear Calc Est GFR (MDRD) Af Amer Est GFR (MDRD) Non-Af BUN/Creatinine Ratio Glucose Calcium Magnesium Troponin I 0.073 H Medical Necessity - Tobacco Use Smoking Status: Never smoker Assessment/Plan Active and Suspected Problems (Last Updated 06/23/17 @ 17:11 by Too Cote, DIGITAL COMPOSER- C) multilobar HCAP (Acute) Acute respiratory failure with hypoxia (Acute) #1 acute sepsis secondary to acute bilateral healthcare acquired pneumonia- suspect gram-negative bacterial-patient will continue on Zosyn day #3 per pulmonary medicine, labs will be monitored #2 acute hypoxic respiratory failure secondary to #1-pulmonary medicine is participating in her care #3 bilateral healthcare acquired pneumonia-suspect gram-negative bacterial, continue Zosyn day #3 #4 Severe aortic stenosis #5 hypokalemia-resolved at this time #6 hypertension #7 coronary artery disease #8 anemia of chronic disease #9 hyperlipidemia #10 history of ischemic cardiomyopathy-EF now normal as of September 2017 #11 generalized debility secondary to multiple medical problems-PT and OT are seeing patient #12 elevation of troponin-I do not believe this is significant #13 elevation of blood sugars-patient's diet will be changed on 1800-calorie ADA diet, patient does not have a history of diabetes Code Visit Inpatient E&M: 14654 Subs Hosp L2
[2017-10-02] MEDS: Aspirin E.C. 81 MG Tablet PO (17:08)
[2017-10-02] MEDS: Albuterol 2.5 MG/3 ML VIAL.NEB. INHALATION (20:26)
[2017-10-02] MEDS: Atorvastatin Calcium 20 MG Tablet PO (21:42)
[2017-10-02] MEDS: Senna/Docusate Sodium 1 Tablet 2 TABLET PO (21:43)
[2017-10-02] MEDS: Acetaminophen 325 MG Tablet 650 MG PO (21:46)
[2017-10-03] VITALS (41 sets, daily range): BP systolic 106–156; BP diastolic 52–94; PULSE 78–149; RESP 12–90; TEMP 37–39; O2SAT 90–100
[2017-10-03 00:56] LABS: Allen Test POS; Base Excess 9 mmol/L (-2 to +2); Bicarbonate 30.5 mmol/L (22-26); Blood Gas Specimen Type ART; EPAP 8; FI02 55; IPAP 12; PO2 95 mmHG (75-100); RR 12; SITE R Radial; SO2 99 % (95-99); Time Given 35; Total Carbon Dioxide 31 mmol/L; pCO2 31.2 mmHg (35-45)
[2017-10-03] MEDS: Ondansetron 4 MG/2 ML Vial IV (01:08)
[2017-10-03] MEDS: 0.9% NaCl Peripheral Flush Adult/Peds IV ×3 (01:11→05:22)
[2017-10-03] MEDS: Piperacil/Tazobactam 3.375 GM/50 ML ML IV ×3 (05:20→21:48)
--- NOTE | 2017-10-03 08:11 | PCM.PROGNOTE ---
Patient Problems: Active and Suspected Problems (Last Updated 06/23/17 @ 17:11 by Too Cote NP-C) multilobar HCAP (Acute) Acute respiratory failure with hypoxia (Acute) Subjective: The patient was seen and examined at the bedside this morning. Events from the last 24 hours have been reviewed. The patient is currently afebrile, hemodynamically stable and maintaining appropriate oxygen saturations on 5-6 L/min via nasal cannula. The patient appears to have been started on a Cardizem drip overnight after her heart rates went into the 140s and 150s. Her respiratory status decompensated as a consequence of this. Objective: The patient's most recent lab work, culture data and imaging studies have all been personally reviewed. C. difficile was negative. Respiratory viral panel was negative. Strep and urine Legionella antigens were both negative. Blood and urine cultures are pending. Surface echocardiogram dated July 2016 revealed normal LV size and function with an ejection fraction of 55%. Pulmonary artery systolic pressure was estimated to be 48 mmHg. - Physical Exam General: Alert, Cooperative HEENT: Atraumatic, PERRLA, Normocephalic Oral: No Gingival or Mucosal Lesions/ Ulcerations Neck: Supple, No Nodes, Trachea Midline Lungs: No rhonchi, No wheeze, Diminished, Rales, Tachypneic Cardiovascular: Regular rate, Regular Rhythm, Normal S1, Normal S2, No murmurs Abdomen: Bowel Sounds Present, Soft, Non Tender Extremities: No clubbing, No cyanosis, Edema Skin: - - No significant change from previous. Musculoskeletal: No Muscle Wasting Lymphatic: No Cervical, Supraclavicular, or Inguinal Adenopathy Neurological: Neuro grossly intact Psych/Mental Status: Normal Affect, Appropriate Vital Signs Temp Pulse Resp BP Pulse Ox 99.4 F H 85 24 H 131/62 H 94 10/03/17 07:00 10/03/17 07:00 10/03/17 07:00 10/03/17 07:00 10/03/17 07:00 Oxygen Flow Rate (L/min) 6 Oxygen Delivery Method Nasal Cannula Weight: 168 lb 3.403 oz Body Mass Index (BMI) 30.7 Intake and Output for Last 24 Hours 10/01/17 10/02/17 10/03/17 23:59 23:59 23:59 Intake Total 1935 / 1935 982.5 / 982.5 90.4 / 90.4 Output Total 400 / 400 3800 / 3800 175 / 175 Balance 1536 / 1536 -2817.5 / -2817.5 -84.6 / -84.6 Microbiology Past 72 Hours 10/02/17 07:40 Gram Stain - Final Sputum, Expectorated/Coughed 10/01/17 07:00 Urine Culture - Preliminary Urine Catheter - Yang Culture exhibits no growth. 10/01/17 07:59 Respiratory Panel (PCR) - Final Mucosa - Nasopharyngeal 10/01/17 08:40 C. difficile DNA Amplification - Final Stool 10/01/17 07:00 Streptococcus pneumoniae Antigen (M - Final Urine Catheter - Yang Laboratory Tests Past 24 Hrs 10/02/17 10/03/17 04:10 00:49 Specimen Type ART Sample Site R Radial pH 7.60 H* Bicarbonate Actual 30.5 H POC Total CO2 31 Base Excess 9 H O2 Saturation 99 O2 % 55 ABG pCO2 31.2 L ABG pO2 95 David Test POS Respiration Rate 12 O2 Delivery Device Bi / C PAP EPAP 8 IPAP 12 Blood Gas Notified Whom HOSP Blood Gas Notified Time 35 Troponin I 0.073 H Clinical Impression(s) from Imaging Studies Chest X-Ray 09/30/17 22:05 IMPRESSION: Multiple bilateral perihilar nodules or nodular-type infiltrates more severe on the right. This probably represents pulmonary edema however cannot exclude inflammatory disease or neoplasm. Clinical correlation recommended Electronically Signed: Zac Chandler MD at 22:48 EDT , Service support , Chest X-Ray 10/01/17 07:10 IMPRESSION: Progressive bilateral airspace disease worse in the right hemithorax. Electronically Signed: Reggie Castillo MD at 9:37 EDT Tel [phone], Service support , Chest X-Ray 10/02/17 03:10 IMPRESSION: No significant change since previous examination. Extensive bilateral infiltrates markedly worse on the right side. Lucency in the left upper chest as described above. Follow-up examination is recommended. Electronically Signed: Art Joseph MD at 3:48 EDT Tel , Service support , Medical Necessity - Tobacco Use Smoking Status: Never smoker Assessment/Plan Active and Suspected Problems (Last Updated 06/23/17 @ 17:11 by Too Cote INDOOR LANDSCAPER/GARDENER-C) multilobar HCAP (Acute) Acute respiratory failure with hypoxia (Acute) RECOMMENDATIONS: 1. Continue broad-spectrum antibiotics, pending finalized infectious workup. 2. Recheck chemistry profile today, prior to administration of Lasix 3. Utilize BiPAP therapy if needed 4. Continue supplemental oxygen to maintain saturations at or above 90%. 5. Continue home cardiac medications 6. Encourage incentive spirometer use and mobilize patient as tolerated. 7. Obtain repeat plain film chest x-ray. IMPRESSIONS: 1. Acute hypoxemic respiratory failure, likely secondary to healthcare associated pneumonia The patient presented with dyspnea and required the initiation of BiPAP support. She has responded favorably from a clinical perspective to the use of BiPAP and broad-spectrum antibiotics in treatment for multifocal pneumonia. Given the patient's recent hospitalizations and residence at a senior care facility, she will be maintained on broad-spectrum antibiotics in treatment for HCAP. Oxygen saturation should be maintained at or above 90%. Encourage incentive spirometer use and mobilize patient as tolerated. Holding on any additional diuresis, until the patient's BMP has been checked. We will also obtain repeat plain film chest x-ray this morning. 2. 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 This appears to have resolved at this time. 3. Personal history of coronary artery disease status post CABG/aortic valve disease status post replacement/ICD in situ Continue home cardiac medications per outpatient regimen. 4. Advanced age/neuropathy/hypertension/hyperlipidemia/GERD Complicates care, management, recovery and prognosis. The patient is a documented DNR CCA on file. Physical therapy to continue to work with patient. This note was generated with [employer] dictation software. It may contain incorrect words, spelling, and punctuation that were not noted in checking the note before signing. Code Visit Inpatient E&M: 52630 Subs Hosp L2
--- NOTE | 2017-10-03 08:14 | RAD_ITS ---
STUDY: X-RAY CHEST REASON FOR EXAM: Female, 82 years old. Shortness of breath. TECHNIQUE: Single AP portable view of the chest. COMPARISON: 10/02/2017. FINDINGS: The left pacemaker is in stable position. Again are extensive bilateral infiltrates worse on the right side with sparing of the left lung apex essentially unchanged since the prior examination. There may be small right pleural effusion. Sternal cerclage wires and vascular clips are present from a prior sternotomy and coronary artery bypass graft procedure (CABG). Normal mediastinum and kathy. Normal visualized pulmonary arteries. There is atherosclerotic calcification of the aortic arch with tortuosity. The thoracic spine is obscured. Normal visualized ribs, clavicles, and shoulders. There is no demonstrated abnormality of the visualized soft tissue structures of the upper abdomen. RAD/Chest 1 View (Portable) IMPRESSION: Bilateral infiltrates essentially unchanged since prior examination. Electronically Signed: Art Joseph MD at 9:23 EDT Tel , Service support ,
--- NOTE | 2017-10-03 08:21 | PN_ITS ---
Patient Problems: Active and Suspected Problems (Last Updated 06/23/17 @ 17:11 by Too Cote NP- C) multilobar HCAP (Acute) Acute respiratory failure with hypoxia (Acute) Subjective: The patient was seen and examined at the bedside this morning. Events from the last 24 hours have been reviewed. The patient is currently afebrile, hemodynamically stable and maintaining appropriate oxygen saturations on 5-6 L/ min via nasal cannula. The patient appears to have been started on a Cardizem drip overnight after her heart rates went into the 140s and 150s. Her respiratory status decompensated as a consequence of this. Objective: The patient's most recent lab work, culture data and imaging studies have all been personally reviewed. C. difficile was negative. Respiratory viral panel was negative. Strep and urine Legionella antigens were both negative. Blood and urine cultures are pending. Surface echocardiogram dated July 2016 revealed normal LV size and function with an ejection fraction of 55%. Pulmonary artery systolic pressure was estimated to be 48 mmHg. - Physical Exam General: Alert, Cooperative HEENT: Atraumatic, PERRLA, Normocephalic Oral: No Gingival or Mucosal Lesions/ Ulcerations Neck: Supple, No Nodes, Trachea Midline Lungs: No rhonchi, No wheeze, Diminished, Rales, Tachypneic Cardiovascular: Regular rate, Regular Rhythm, Normal S1, Normal S2, No murmurs Abdomen: Bowel Sounds Present, Soft, Non Tender Extremities: No clubbing, No cyanosis, Edema Skin: - - No significant change from previous. Musculoskeletal: No Muscle Wasting Lymphatic: No Cervical, Supraclavicular, or Inguinal Adenopathy Neurological: Neuro grossly intact Psych/Mental Status: Normal Affect, Appropriate Vital Signs Temp Pulse Resp BP Pulse Ox 99.4 F H 85 24 H 131/62 H 94 10/03/17 07:00 10/03/17 07:00 10/03/17 07:00 10/03/17 07:00 10/03/17 07:00 Oxygen Flow Rate (L/min) 6 Oxygen Delivery Method Nasal Cannula Weight: 168 lb 3.403 oz Body Mass Index (BMI) 30.7 Intake and Output for Last 24 Hours 10/01/17 10/02/17 10/03/17 23:59 23:59 23:59 Intake Total 1935 / 1935 982.5 / 982.5 90.4 / 90.4 Output Total 400 / 400 3800 / 3800 175 / 175 Balance 1536 / 1536 -2817.5 / -2817.5 -84.6 / -84.6 Microbiology Past 72 Hours 10/02/17 07:40 Gram Stain - Final Sputum, Expectorated/Coughed 10/01/17 07:00 Urine Culture - Preliminary Urine Catheter - Yang Culture exhibits no growth. 10/01/17 07:59 Respiratory Panel (PCR) - Final Mucosa - Nasopharyngeal 10/01/17 08:40 C. difficile DNA Amplification - Final Stool 10/01/17 07:00 Streptococcus pneumoniae Antigen (M - Final Urine Catheter - Yang Laboratory Tests Past 24 Hrs 10/02/17 10/03/17 04:10 00:49 Specimen Type ART Sample Site R Radial pH 7.60 H* Bicarbonate Actual 30.5 H POC Total CO2 31 Base Excess 9 H O2 Saturation 99 O2 % 55 ABG pCO2 31.2 L ABG pO2 95 David Test POS Respiration Rate 12 O2 Delivery Device Bi / C PAP EPAP 8 IPAP 12 Blood Gas Notified Whom HOSP Blood Gas Notified Time 35 Troponin I 0.073 H Clinical Impression(s) from Imaging Studies Chest X-Ray 09/30/17 22:05 IMPRESSION: Multiple bilateral perihilar nodules or nodular-type infiltrates more severe on the right. This probably represents pulmonary edema however cannot exclude inflammatory disease or neoplasm. Clinical correlation recommended Electronically Signed: Zac Chandler MD at 22:48 EDT , Service support , Chest X-Ray 10/01/17 07:10 IMPRESSION: Progressive bilateral airspace disease worse in the right hemithorax. Electronically Signed: Reggie Castillo MD at 9:37 EDT Tel [phone], Service support , Chest X-Ray 10/02/17 03:10 IMPRESSION: No significant change since previous examination. Extensive bilateral infiltrates markedly worse on the right side. Lucency in the left upper chest as described above. Follow-up examination is recommended. Electronically Signed: Art Joseph MD at 3:48 EDT Tel , Service support , Medical Necessity - Tobacco Use Smoking Status: Never smoker Assessment/Plan Active and Suspected Problems (Last Updated 06/23/17 @ 17:11 by Too Cote AUTOMOBILE SALES CONSULTANT- C) multilobar HCAP (Acute) Acute respiratory failure with hypoxia (Acute) RECOMMENDATIONS: 1. Continue broad-spectrum antibiotics, pending finalized infectious workup. 2. Recheck chemistry profile today, prior to administration of Lasix 3. Utilize BiPAP therapy if needed 4. Continue supplemental oxygen to maintain saturations at or above 90%. 5. Continue home cardiac medications 6. Encourage incentive spirometer use and mobilize patient as tolerated. 7. Obtain repeat plain film chest x-ray. IMPRESSIONS: 1. Acute hypoxemic respiratory failure, likely secondary to healthcare associated pneumonia The patient presented with dyspnea and required the initiation of BiPAP support. She has responded favorably from a clinical perspective to the use of BiPAP and broad-spectrum antibiotics in treatment for multifocal pneumonia. Given the patient's recent hospitalizations and residence at a shelter facility, she will be maintained on broad-spectrum antibiotics in treatment for HCAP. Oxygen saturation should be maintained at or above 90%. Encourage incentive spirometer use and mobilize patient as tolerated. Holding on any additional diuresis, until the patient's BMP has been checked. We will also obtain repeat plain film chest x-ray this morning. 2. 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 This appears to have resolved at this time. 3. Personal history of coronary artery disease status post CABG/aortic valve disease status post replacement/ICD in situ Continue home cardiac medications per outpatient regimen. 4. Advanced age/neuropathy/hypertension/hyperlipidemia/GERD Complicates care, management, recovery and prognosis. The patient is a documented DNR CCA on file. Physical therapy to continue to work with patient. This note was generated with [employer] dictation software. It may contain incorrect words, spelling, and punctuation that were not noted in checking the note before signing. Code Visit Inpatient E&M: 32851 Subs Hosp L2
[2017-10-03] MEDS: Menthol/Lanolin/Calamine/Znox 113 GM Tube 1 APPLIC TOPICAL ×2 (09:04→21:47)
[2017-10-03] MEDS: Aspirin E.C. 81 MG Tablet PO (09:04)
[2017-10-03] MEDS: Carvedilol 25 MG Tablet PO (09:05)
[2017-10-03] MEDS: amLODIPine 5 MG Tablet PO (09:06)
[2017-10-03] MEDS: Magnesium Oxide 400 MG Tablet PO (09:06)
[2017-10-03] MEDS: guaiFENesin 1,200 MG Tablet 1200 MG PO (09:06)
[2017-10-03] MEDS: Famotidine 20 MG Tablet PO (09:06)
[2017-10-03] MEDS: Lisinopril 40 MG Tablet PO (09:07)
[2017-10-03 09:14] LABS: Anion Gap 8 (5-15); BUN 19 mg/dL (7-18); BUN/Creat Ratio 29.7 RATIO (10-20); Calcium,Total 8.7 mg/dL (8.5-10.1); Chloride 104 mmol/L (98-107); Creatinine, Serum 0.64 mg/dL (0.55-1.02); EST Glomerular Filtration Rate 95 mL/min (>60); Est Glom Filt Rate - Afr Amer 115 mL/min (>60); Estimated Creatinine Clearance 37.12 ml/min; Glucose 132 mg/dL (74-106); Magnesium 2.3 mg/dL (1.6-2.6); Potassium 3.3 mmol/L (3.5-5.1); Sodium Level 143 mmol/L (136-145)
--- NOTE | 2017-10-03 11:51 | PCM.PN.HOSP ---
Patient Problems: Active and Suspected Problems (Last Updated 06/23/17 @ 17:11 by Too Cote NP-C) multilobar HCAP (Acute) Acute respiratory failure with hypoxia (Acute) CHF (congestive heart failure) (Acute) Subjective: Seen and examined today. Was on 6 L of oxygen at time of review. She had no complaints. She has a cough which she states is dry. He says shortness of breath is getting much better. She denies any fever or chills, any chest pain, any abdominal pain, any diarrhea vomiting. Review of systems otherwise negative. Vitals/I&O's: Vital Signs Temp Pulse Resp BP Pulse Ox 99.5 F H 81 42 H 134/81 H 93 10/03/17 11:00 10/03/17 11:00 10/03/17 11:00 10/03/17 11:00 10/03/17 11:00 Oxygen Flow Rate (L/min) 15 Oxygen Delivery Method Non-Rebreather Weight: 168 lb 3.403 oz Body Mass Index (BMI) 30.7 Intake and Output for Last 24 Hours 10/01/17 10/02/17 10/03/17 23:59 23:59 23:59 Intake Total 1936 / 1936 982.5 / 982.5 90.4 / 90.4 Output Total 400 / 400 3800 / 3800 175 / 175 Balance 1536 / 1536 -2817.5 / -2817.5 -84.6 / -84.6 General: Alert, Oriented x3, Cooperative, No apparent distress HEENT: Atraumatic, PERRLA, EOMI, Normocephalic Oral: Moist Mucosa Neck: Supple, No JVD, Negative Carotid Bruits Lungs: - - Has significant wheezing in all lung tolentino with coarse crackles heard in left lower lung field. Cardiovascular: Regular rate, Regular Rhythm, Normal S1, Normal S2, No murmurs Abdomen: Bowel Sounds Present, Soft, Non Tender, Non-Distended, No Hepato-splenomegaly Extremities: No edema, Capillary Refill Less than 3 Seconds Skin: No rashes, No breakdown Musculoskeletal: No Tenderness to Palpation of Joints or Extremities Lymphatic: No Cervical, Supraclavicular, or Inguinal Adenopathy Neurological: Cranial nerves II-XII grossly intact Psych/Mental Status: Normal Affect, Alert and oriented to time, place, person, mood and affect Microbiology Past 72 Hours 10/02/17 07:40 Sputum, Expectorated/Coughed Gram Stain - Final 10/02/17 07:40 Sputum, Expectorated/Coughed Respiratory Culture - Preliminary Coag Negative Staph 10/01/17 00:06 Blood Culture (Wb) #2 - Left Hand Blood Culture - Preliminary No growth in 48 hours. 10/01/17 07:00 Urine Catheter - Yang Urine Culture - Final Culture exhibits no growth. 10/01/17 07:59 Mucosa - Nasopharyngeal Respiratory Panel (PCR) - Final 10/01/17 08:40 Stool C. difficile DNA Amplification - Final 10/01/17 07:00 Urine Catheter - Yang Streptococcus pneumoniae Antigen (M - Final Laboratory Results 10/03/17 00:49: Specimen Type ART, Sample Site R Radial, pH 7.60 H*, Bicarbonate Actual 30.5 H, POC Total CO2 31, Base Excess 9 H, O2 Saturation 99, O2 % 55, ABG pCO2 31.2 L, ABG pO2 95, David Test POS, Respiration Rate 12, O2 Delivery Device Bi / C PAP, EPAP 8, IPAP 12, Blood Gas Notified Whom HOSP , Blood Gas Notified Time 35 10/03/17 08:38: Sodium 143, Potassium 3.3 L, Chloride 104, Carbon Dioxide 31.0, Anion Gap 8, BUN 19 H, Creatinine 0.64, Estim Creat Clear Calc 37.12, Est GFR (MDRD) Af Amer 115, Est GFR (MDRD) Non-Af 95, BUN/Creatinine Ratio 29.7 H, Glucose 132 H, Calcium 8.7, Magnesium 2.3 Current Medications Acetaminophen (Tylenol) 650 mg PO Q4H PRN PRN PRN Reason: FEVER Last Admin: 10/02/17 21:46 Dose: 650 mg Albuterol Sulfate (Ventolin Aerosols) 2.5 mg INHALATION Q2H PRN PRN PRN Reason: SHORTNESS OF BREATH Last Admin: 10/02/17 20:26 Dose: 2.5 mg Amlodipine Besylate (Norvasc) 5 mg PO DAILY [facility] Last Admin: 10/03/17 09:06 Dose: 5 mg Aspirin (Ecotrin) 81 mg PO BIDCM [facility] Last Admin: 10/03/17 09:04 Dose: 81 mg Atorvastatin Calcium (Lipitor) 20 mg PO QHS [facility] Last Admin: 10/02/17 21:42 Dose: 20 mg Calamine/Phenol (Calmoseptine Ointment) 1 applic TOPICAL BID [facility] PRN Reason: Protocol Last Admin: 10/03/17 09:04 Dose: 1 applicatio Carvedilol (Coreg) 25 mg PO BID [facility] Last Admin: 10/03/17 09:05 Dose: 25 mg Chlorhexidine Gluconate () 1 each TOPICAL DAILY [facility] Last Admin: 10/03/17 09:05 Dose: Not Given Famotidine (Pepcid) 20 mg PO BID [facility] Last Admin: 10/03/17 09:06 Dose: 20 mg Guaifenesin (Mucinex) 1,200 mg PO BID [facility] Last Admin: 10/03/17 09:06 Dose: 1,200 mg Piperacillin Sod/Tazobactam Sod (Zosyn) 3.375 gm in 50 mls @ 12.5 mls/hr IV Q8 [facility] Last Admin: 10/03/17 05:20 Dose: 12.5 mls/hr Sodium Chloride () 250 mls @ 15 mls/hr IV .[id number] PRN PRN Reason: SALINE FLUSH Last Admin: 10/02/17 13:53 Dose: 15 mls/hr Diltiazem HCl 125 mg/ Dextrose 125 mls @ 5 mls/hr CONT INF .Q25H [facility] PRN Reason: 5 MG/HR Last Admin: 10/03/17 09:09 Dose: 5 mls/hr Labetalol HCl (Trandate) 10 mg IV Q4H PRN PRN PRN Reason: HR > 120 Last Admin: 10/02/17 23:06 Dose: 10 mg Lisinopril (Zestril) 40 mg PO DAILY [facility] Last Admin: 10/03/17 09:07 Dose: 40 mg Magnesium Oxide (Mag-Ox 400) 400 mg PO DAILY [facility] Last Admin: 10/03/17 09:06 Dose: 400 mg Nitroglycerin (Nitrostat) 0.4 mg SUBLINGUAL Q5M PRN PRN Reason: Chest Pain Nutritional Formula (Lactose Free) (Ensure Enlive) 120 ml PO 4X/DAY [facility] Last Admin: 10/03/17 09:06 Dose: Not Given Ondansetron HCl (Zofran) 4 mg IV Q8H PRN PRN PRN Reason: NAUSEA Last Admin: 10/03/17 01:08 Dose: 4 mg Senna/Docusate Sodium (Senokot-S, Dilia-Colace) 2 tablet PO BID [facility] Last Admin: 10/03/17 09:01 Dose: Not Given Sodium Chloride () 5 - 30 ml IV UD PRN PRN Reason: SALINE FLUSH Last Admin: 10/03/17 05:22 Dose: 5 ml Tramadol HCl (Ultram) 50 mg PO Q6H PRN PRN PRN Reason: PAIN Medical Necessity - Tobacco Use Smoking Status: Never smoker Assessment/Plan Active and Suspected Problems (Last Updated 06/23/17 @ 17:11 by Too Cote NP-C) multilobar HCAP (Acute) Acute respiratory failure with hypoxia (Acute) CHF (congestive heart failure) (Acute) 1. Health associated pneumonia resolving. Feels better. on 6 liters of oxygen by nasal cannula. Had low-grade fevers overnight begin at 100.6 Fahrenheit. Temperature at time of review today was around 99.2 Fahrenheit. Patient has remained tachypneic with respiratory rate around 27. She is saturating around 80s on 6 L of oxygen via nasal cannula. Patient put on rebreather mask. White cell count has trended up to around 11.9 today. On IV Zosyn. Today is day 4. We will continue. 2. Acute hypoxic hypercapnic respiratory failure due to pneumonia Remains tachypneic. Was on 6 L of oxygen via nasal cannula at time of review today with saturation down in the 80s. Saturation increased to the 90s-1 switch to nonrebreather facemask. Patient is however still breathing in the 30s. ABGs: pH of 7.6, with PCO2 of 31.2. This indicated respiratory alkalosis. Bicarb was also around 30.5, so this is actually indicative of a mixed picture with concomitant metabolic alkalosis as well. This may have been due to patient being on BiPAP, which could have caused the respiratory alkalosis; contraction alkalosis and post hypercapnic alkalosis could have caused the metabolic alkalosis. X-ray today showed bilateral infiltrates unchanged since prior examination repeat ABGs today shwoed pH of 7.53, pO2-51, pCO2-36.6, pulmonology on board. on breathing treatments. 3. Afib with RVR: was put on cardizem drip overnight. Currently rate controlled. Cardiology on board. Will await rec's . Echo 2017- EF of 55%. CHADVASC score is at least 5. Patient not being anticoagulated. To start anticoagulation today; started on lovenox 80mg q12 sq. 4. CHF will get 2D echo in light of acute Afib with RVR. received a dose of lasix 40mg once overnight. will continue with IV lasix 40mg daily CXR today showed ilateral pleural effusions. 5. history of paroxysmal vtach s/p ICD placement. has remained stable. on coreg. 6. Severe aortic stenosis s/p bioprosthetic aortic valve replacement. Stable 7. Hypokalemia: K is 3.4 today. Will replace and monitor. Mg is WNL. 8. Hypertension: on amlodipine nad coreg as well as lisinopril 9. 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 on aspirin. 10. DVT prophylaxis: PCDs; patient has not been on heparin since admission. Will start anticoagulation. 11. GI prophylaxis: famotidine Code Visit Inpatient E&M: 18897 [facility] Hosp L3
--- NOTE | 2017-10-03 12:05 | PN_ITS ---
Patient Problems: Active and Suspected Problems (Last Updated 06/23/17 @ 17:11 by Too Cote NP- C) multilobar HCAP (Acute) Acute respiratory failure with hypoxia (Acute) CHF (congestive heart failure) (Acute) Subjective: Seen and examined today. Was on 6 L of oxygen at time of review. She had no complaints. She has a cough which she states is dry. He says shortness of breath is getting much better. She denies any fever or chills, any chest pain, any abdominal pain, any diarrhea vomiting. Review of systems otherwise negative. Vitals/I&O's: Vital Signs Temp Pulse Resp BP Pulse Ox 99.5 F H 81 42 H 134/81 H 93 10/03/17 11:00 10/03/17 11:00 10/03/17 11:00 10/03/17 11:00 10/03/17 11:00 Oxygen Flow Rate (L/min) 15 Oxygen Delivery Method Non-Rebreather Weight: 168 lb 3.403 oz Body Mass Index (BMI) 30.7 Intake and Output for Last 24 Hours 10/01/17 10/02/17 10/03/17 23:59 23:59 23:59 Intake Total 1936 / 1936 982.5 / 982.5 90.4 / 90.4 Output Total 400 / 400 3800 / 3800 175 / 175 Balance 1536 / 1536 -2817.5 / -2817.5 -84.6 / -84.6 General: Alert, Oriented x3, Cooperative, No apparent distress HEENT: Atraumatic, PERRLA, EOMI, Normocephalic Oral: Moist Mucosa Neck: Supple, No JVD, Negative Carotid Bruits Lungs: - - Has significant wheezing in all lung to[place] with coarse crackles heard in left lower lung field. Cardiovascular: Regular rate, Regular Rhythm, Normal S1, Normal S2, No murmurs Abdomen: Bowel Sounds Present, Soft, Non Tender, Non-Distended, No Hepato- splenomegaly Extremities: No edema, Capillary Refill Less than 3 Seconds Skin: No rashes, No breakdown Musculoskeletal: No Tenderness to Palpation of Joints or Extremities Lymphatic: No Cervical, Supraclavicular, or Inguinal Adenopathy Neurological: Cranial nerves II-XII grossly intact Psych/Mental Status: Normal Affect, Alert and oriented to time, place, person, mood and affect Microbiology Past 72 Hours 10/02/17 07:40 Sputum, Expectorated/Coughed Gram Stain - Final 10/02/17 07:40 Sputum, Expectorated/Coughed Respiratory Culture - Preliminary Coag Negative Staph 10/01/17 00:06 Blood Culture (Wb) #2 - Left Hand Blood Culture - Preliminary No growth in 48 hours. 10/01/17 07:00 Urine Catheter - Yang Urine Culture - Final Culture exhibits no growth. 10/01/17 07:59 Mucosa - Nasopharyngeal Respiratory Panel (PCR) - Final 10/01/17 08:40 Stool C. difficile DNA Amplification - Final 10/01/17 07:00 Urine Catheter - Yang Streptococcus pneumoniae Antigen (M - Final Laboratory Results 10/03/17 00:49: Specimen Type ART, Sample Site R Radial, pH 7.60 H*, Bicarbonate Actual 30.5 H, POC Total CO2 31, Base Excess 9 H, O2 Saturation 99, O2 % 55, ABG pCO2 31.2 L, ABG pO2 95, David Test POS, Respiration Rate 12, O2 Delivery Device Bi / C PAP, EPAP 8, IPAP 12, Blood Gas Notified Whom HOSP , Blood Gas Notified Time 35 10/03/17 08:38: Sodium 143, Potassium 3.3 L, Chloride 104, Carbon Dioxide 31.0, Anion Gap 8, BUN 19 H, Creatinine 0.64, Estim Creat Clear Calc 37.12, Est GFR ( MDRD) Af Amer 115, Est GFR (MDRD) Non-Af 95, BUN/Creatinine Ratio 29.7 H, Glucose 132 H, Calcium 8.7, Magnesium 2.3 Current Medications Acetaminophen (Tylenol) 650 mg PO Q4H PRN PRN PRN Reason: FEVER Last Admin: 10/02/17 21:46 Dose: 650 mg Albuterol Sulfate (Ventolin Aerosols) 2.5 mg INHALATION Q2H PRN PRN PRN Reason: SHORTNESS OF BREATH Last Admin: 10/02/17 20:26 Dose: 2.5 mg Amlodipine Besylate (Norvasc) 5 mg PO DAILY [facility] Last Admin: 10/03/17 09:06 Dose: 5 mg Aspirin (Ecotrin) 81 mg PO BIDCM [facility] Last Admin: 10/03/17 09:04 Dose: 81 mg Atorvastatin Calcium (Lipitor) 20 mg PO QHS [facility] Last Admin: 10/02/17 21:42 Dose: 20 mg Calamine/Phenol (Calmoseptine Ointment) 1 applic TOPICAL BID [facility] PRN Reason: Protocol Last Admin: 10/03/17 09:04 Dose: 1 applicatio Carvedilol (Coreg) 25 mg PO BID [facility] Last Admin: 10/03/17 09:05 Dose: 25 mg Chlorhexidine Gluconate () 1 each TOPICAL DAILY [facility] Last Admin: 10/03/17 09:05 Dose: Not Given Famotidine (Pepcid) 20 mg PO BID [facility] Last Admin: 10/03/17 09:06 Dose: 20 mg Guaifenesin (Mucinex) 1,200 mg PO BID [facility] Last Admin: 10/03/17 09:06 Dose: 1,200 mg Piperacillin Sod/Tazobactam Sod (Zosyn) 3.375 gm in 50 mls @ 12.5 mls/hr IV Q8 [facility] Last Admin: 10/03/17 05:20 Dose: 12.5 mls/hr Sodium Chloride () 250 mls @ 15 mls/hr IV .[id number] PRN PRN Reason: SALINE FLUSH Last Admin: 10/02/17 13:53 Dose: 15 mls/hr Diltiazem HCl 125 mg/ Dextrose 125 mls @ 5 mls/hr CONT INF .Q25H [facility] PRN Reason: 5 MG/HR Last Admin: 10/03/17 09:09 Dose: 5 mls/hr Labetalol HCl (Trandate) 10 mg IV Q4H PRN PRN PRN Reason: HR > 120 Last Admin: 10/02/17 23:06 Dose: 10 mg Lisinopril (Zestril) 40 mg PO DAILY [facility] Last Admin: 10/03/17 09:07 Dose: 40 mg Magnesium Oxide (Mag-Ox 400) 400 mg PO DAILY [facility] Last Admin: 10/03/17 09:06 Dose: 400 mg Nitroglycerin (Nitrostat) 0.4 mg SUBLINGUAL Q5M PRN PRN Reason: Chest Pain Nutritional Formula (Lactose Free) (Ensure Enlive) 120 ml PO 4X/DAY [facility] Last Admin: 10/03/17 09:06 Dose: Not Given Ondansetron HCl (Zofran) 4 mg IV Q8H PRN PRN PRN Reason: NAUSEA Last Admin: 10/03/17 01:08 Dose: 4 mg Senna/Docusate Sodium (Senokot-S, Dilia-Colace) 2 tablet PO BID [facility] Last Admin: 10/03/17 09:01 Dose: Not Given Sodium Chloride () 5 - 30 ml IV UD PRN PRN Reason: SALINE FLUSH Last Admin: 10/03/17 05:22 Dose: 5 ml Tramadol HCl (Ultram) 50 mg PO Q6H PRN PRN PRN Reason: PAIN Medical Necessity - Tobacco Use Smoking Status: Never smoker Assessment/Plan Active and Suspected Problems (Last Updated 06/23/17 @ 17:11 by Too Cote NP- C) multilobar HCAP (Acute) Acute respiratory failure with hypoxia (Acute) CHF (congestive heart failure) (Acute) 1. Health associated pneumonia * resolving. Feels better. * on 6 liters of oxygen by nasal cannula. * Had low-grade fevers overnight begin at 100.6 Fahrenheit. Temperature at time of review today was around 99.2 Fahrenheit. * Patient has remained tachypneic with respiratory rate around 27. She is saturating around 80s on 6 L of oxygen via nasal cannula. Patient put on rebreather mask. * White cell count has trended up to around 11.9 today. * On IV Zosyn. Today is day 4. We will continue. * 2. Acute hypoxic hypercapnic respiratory failure due to pneumonia * Remains tachypneic. Was on 6 L of oxygen via nasal cannula at time of review today with saturation down in the 80s. Saturation increased to the 90s-1 switch to nonrebreather facemask. Patient is however still breathing in the 30s. * ABGs: pH of 7.6, with PCO2 of 31.2. This indicated respiratory alkalosis. Bicarb was also around 30.5, so this is actually indicative of a mixed picture with concomitant metabolic alkalosis as well. This may have been due to patient being on BiPAP, which could have caused the respiratory alkalosis; contraction alkalosis and post hypercapnic alkalosis could have caused the metabolic alkalosis. * X-ray today showed bilateral infiltrates unchanged since prior examination * repeat ABGs today shwoed pH of 7.53, pO2-51, pCO2-36.6, * pulmonology on board. * on breathing treatments. * 3. Afib with RVR: * was put on cardizem drip overnight. Currently rate controlled. * Cardiology on board. Will await rec's . Echo 2017- EF of 55%. CHADVASC score is at least 5. Patient not being anticoagulated. To start anticoagulation today ; started on lovenox 80mg q12 sq. 4. CHF * will get 2D echo in light of acute Afib with RVR. * received a dose of lasix 40mg once overnight. will continue with IV lasix 40mg daily * CXR today showed ilateral pleural effusions. 5. history of paroxysmal vtach * s/p ICD placement. has remained stable. * on coreg. 6. Severe aortic stenosis s/p bioprosthetic aortic valve replacement. Stable 7. Hypokalemia: K is 3.4 today. Will replace and monitor. Mg is WNL. 8. Hypertension: on amlodipine nad coreg as well as lisinopril 9. 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 on aspirin. 10. DVT prophylaxis: PCDs; patient has not been on heparin since admission. Will start anticoagulation. 11. GI prophylaxis: famotidine Code Visit Inpatient E&M: [id number] [facility] Hosp L3
[2017-10-03 12:36] LABS: Allen Test POS; Base Excess 7 mmol/L (-2 to +2); Bicarbonate 30.2 mmol/L (22-26); Blood Gas Specimen Type ART; EPAP 5; FI02 40; IPAP 10; PO2 51 mmHG (75-100); RR 12; SITE L Radial; SO2 89 % (95-99); Time Given 1229; Total Carbon Dioxide 31 mmol/L; pCO2 36.6 mmHg (35-45); pH 7.53 (7.35-7.45)
--- NOTE | 2017-10-03 13:51 | NURSING ---
report called to Nahun ALEXANDER in ICU
--- NOTE | 2017-10-03 14:31 | PCM.CONS.C ---
Problem List (1) Paroxysmal atrial fibrillation Status: Chronic (2) Paroxysmal ventricular tachycardia Status: Chronic (3) CHF (congestive heart failure) Status: Acute Qualifiers: Heart failure type: unspecified Heart failure chronicity: acute on chronic Qualified Code(s): I50.9 - Heart failure, unspecified (4) Cardiomyopathy Status: Chronic Qualifiers: Cardiomyopathy type: unspecified Qualified Code(s): I42.9 - Cardiomyopathy, unspecified (5) Atherosclerotic heart disease of [place] coronary artery without angina pectoris Status: Chronic Qualifiers: [place] vs. transplanted heart: [place] heart Qualified Code(s): I25.10 - Atherosclerotic heart disease of [place] coronary artery without angina pectoris Comment: CABG x1 RANDLE-LAD x/Aortic Valve Replacement (6) History of aortic valve replacement with bioprosthetic valve Status: Chronic (7) Biventricular ICD (implantable cardioverter-defibrillator) in place Status: Chronic (8) HTN (hypertension) Status: Chronic Qualifiers: Hypertension type: essential hypertension Qualified Code(s): I10 - Essential (primary) hypertension (9) Hyperlipidemia Status: Chronic Qualifiers: Hyperlipidemia type: pure hypercholesterolemia Qualified Code(s): E78.00 - Pure hypercholesterolemia, unspecified; E78.00 - Pure hypercholesterolemia, unspecified; E78.00 - Pure hypercholesterolemia, unspecified; E78.0 - Pure hypercholesterolemia (10) multilobar HCAP Status: Acute Reason for Consult Date of Consultation: 10/03/17 History of Present Illness: The patient is a 82 year old white female who is referred for evaluation of atrial fibrillation superimposed upon a history of paroxysmal ventricular tachycardia, on chronic CHF, non-CAD related cardiomyopathy, CAD status post CABG with RANDLE to the LAD, status post aortic valve replacement-bioprosthetic (21 mm Magna Ease pericardial valve), ICD, hypertension, hyperlipidemia, superimposed upon underlying pneumonia. The patient states that she has had progressive shortness of breath and dyspnea. She did not necessarily complain of ongoing chest discomfort nor has she had any overt observations palpitations or rapid rates. She does not believe her defibrillator discharge. She does not recall any near-syncope or syncope. She was brought to the hospital for further evaluation. She has been diagnosed with concerns of an underlying pneumonia. She has initiated medical management. However, she was subsequently noted to develop atrial fibrillation. She was evaluated by internal medicine and placed on IV diltiazem. She had laboratory studies performed. She did have a troponin I level that was considered indeterminate. Her ECG suggested a ventricular paced rhythm with underlying atrial fibrillation. A chest x-ray was performed. She appeared to have bilateral infiltrates and increased pulmonary vascularity with the right being greater than the left. [] Past Medical History Allergies/Adverse Reactions: Allergies adhesive Allergy (Verified 09/30/17 21:57) Unknown etodolac Allergy (Verified 09/30/17 21:57) Unknown magnesium Allergy (Verified 09/30/17 21:57) Unknown melatonin Allergy (Verified 09/30/17 21:57) Unknown nitroglycerin Allergy (Verified 09/30/17 21:57) Unknown oxycodone HCl [From Percocet] Allergy (Verified 09/30/17 21:57) Unknown phenobarbital Allergy (Verified 09/30/17 21:57) Unknown tolmetin sodium [From Tolectin] Allergy (Verified 09/30/17 21:57) Unknown venlafaxine Allergy (Verified 09/30/17 21:57) Unknown coenzyme Q10 Allergy (Uncoded 09/30/17 21:57) Unknown nitropatch Allergy (Uncoded 09/30/17 21:57) unknown Home Medications: Ambulatory Orders Medication Instructions Recorded Magnesium Oxide [Mag-Ox 400] 400 mg PO DAILY 09/17/15 Nitroglycerin [Nitrostat] 0.4 mg SUBLINGUAL Q5M PRN 09/20/15 coenzyme Q10 200 mg capsule 200 mg PO DAILY 05/05/17 gabapentin 100 mg capsule 200 mg PO BID 05/05/17 melatonin 3 mg tablet 3 mg PO HS PRN 05/07/17 amlodipine 5 mg tablet 5 mg PO DAILY 06/23/17 atorvastatin 40 mg tablet 20 mg PO QHS tab 06/23/17 furosemide 40 mg tablet 40 mg PO DAILY 06/23/17 Carvedilol [Coreg (Beta Gene)] 25 mg PO BID 07/06/17 Cholecalciferol (Vitamin D3) 1,000 unit PO DAILY 07/06/17 [Vitamin D3] Acetaminophen [Tylenol] 1,000 mg PO Q8 14 Days tablet 09/19/17 Aspirin 325 mg PO BIDCM 30 Days tablet 09/19/17 Lisinopril [Zestril] 40 mg PO DAILY tablet 09/19/17 Senna/Docusate Sodium [Senokot-S] 2 tab PO BID #20 tab 09/19/17 traMADol [Ultram] 50 - 100 mg PO Q6H PRN PRN 7 Days 09/19/17 #56 tab Albuterol Aerosols [Ventolin 2.5 mg INHALATION Q4H PRN PRN 09/30/17 Aerosols] Antifungal 1 % TOPICAL BID 09/30/17 Ceftriaxone [Rocephin] 2 gm IV Q24 09/30/17 Diphenhydramine HCl [Diphenhist] 25 mg PO Q4H PRN PRN 09/30/17 Famotidine [Pepcid] 20 mg PO BID 09/30/17 Metronidazole [Flagyl] 500 mg PO Q8 09/30/17 Omeprazole [Prilosec] 20 mg PO DAILY 09/30/17 Potassium Chloride [K-Dur] 20 meq PO DAILY 09/30/17 Past Medical History (Chronic Problems): Chronic Problems (Last Updated 06/23/17 @ 17:11 by Too Cote NP-C) Cardiomyopathy (Chronic) Ischemic cardiomyopathy (Chronic) Paroxysmal atrial fibrillation (Chronic) 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) Hyperthyroidism (Chronic) Hypokalemia (Chronic) Atherosclerotic heart disease of [place] coronary artery without angina pectoris (Chronic) CABG x1 RANDLE-LAD x/Aortic Valve Replacement Left bundle-branch block (Chronic) Nonrheumatic aortic valve stenosis (Chronic) HTN (hypertension) (Chronic) Other chest pain (Chronic) Presence of aortocoronary bypass graft (Chronic) Dyspnea on exertion (Chronic) Fatigue (Chronic) Chronic pulmonary heart disease (Chronic) CVA (cerebral infarction) (Chronic) Hyperlipidemia (Chronic) Paroxysmal ventricular tachycardia (Chronic) HTN (hypertension) (Chronic) Hypothyroidism associated with surgical procedure (Chronic) had a subtotal thyroidectomy for goiter Hemorrhoids (Chronic) Restless leg syndrome (Chronic) TIA (transient ischemic attack) (Chronic) multiple History of aortic valve replacement with bioprosthetic valve (Chronic) Surgical History: appendectomy, cholecystectomy, coronary bypass surgery, hysterectomy - She still has ovaries and fallopian tubes. 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 History: dysfunctional uterine bld - *Family History Maternal Family History: Family History (Last Reviewed 06/23/17 @ 15:49 by Susannah Brooks) Father Myocardial infarction, Onset Age: 45 Hypertension Heart disease Mother Myocardial infarction, Onset Age: 64 CAD (coronary artery disease) Hypertension Brother Myocardial infarction, Onset Age: 59 Heart disease CAD (coronary artery disease) CVA (cerebral vascular accident) Hypertension Sister CAD (coronary artery disease) Hypertension Daughter Diabetes HLD (hyperlipidemia) Son Hypertension HLD (hyperlipidemia) CAD (coronary artery disease) History Items: Heart Disease, Hypertension Paternal Family History: Family History (Last Reviewed 06/23/17 @ 15:49 by Susannah Brooks) Father Myocardial infarction, Onset Age: 45 Hypertension Heart disease Mother Myocardial infarction, Onset Age: 64 CAD (coronary artery disease) Hypertension Brother Myocardial infarction, Onset Age: 59 Heart disease CAD (coronary artery disease) CVA (cerebral vascular accident) Hypertension Sister CAD (coronary artery disease) Hypertension Daughter Diabetes HLD (hyperlipidemia) Son Hypertension HLD (hyperlipidemia) CAD (coronary artery disease) History Items: High Cholesterol, Heart Disease Smoking Status: Never smoker Alcohol: None Drugs: None Review of Systems - Review of Systems General: Denies: Fever, Night Sweats, Fatigue Cardiovascular: Reports: Shortness of Breath, Shortness of Breath at Rest. Denies: Chest Discomfort, Orthopnea, PND, Peripheral Edema, Palpitations, Lightheadedness, Dizziness, Near Syncope, Syncope Respiratory: Reports: Shortness of Breath. Denies: Cough, Sputum Production, Hemoptysis Gastrointestinal: Denies: Hematemesis, Hematochezia, Melena Genitourinary: Denies: Dysuria, Hematuria Skin: Denies: Rash Subjectve: This is an 82-year-old white female who appears to be resting reasonably comfortably at this time with her oxygen mask in place. Objective: Vital Signs Temp Pulse Resp BP Pulse Ox 99.5 F H 122 H 36 H 144/78 H 98 10/03/17 11:00 10/03/17 13:46 10/03/17 13:46 10/03/17 13:00 10/03/17 13:46 Oxygen Flow Rate (L/min) 15 Oxygen Delivery Method Bi-pap Weight: 168 lb 3.403 oz Body Mass Index (BMI) 30.7 Intake and Output for Last 24 Hours 10/01/17 10/02/17 10/03/17 23:59 23:59 23:59 Intake Total 1936 / 1936 982.5 / 982.5 361.4 / 361.4 Output Total 400 / 400 3800 / 3800 325 / 325 Balance 1536 / 1536 -2817.5 / -2817.5 36.4 / 36.4 General: Awake, Alert, Oriented x 3, Cooperative HEENT: Atraumatic, Normocephalic, PERRL, EOMI, Sclera Non Icteric Oral: Moist Mucosa Neck: Supple, Good ROM, Positive JVD Lungs: Rhonchi Cardiovascular: Irregular Rhythm, Normal S1, Normal S2 Murmur Murmur: Grade 2/6, Mid Systolic, LLSB, LVOT, Sternal Notch Abdomen: Bowel Sounds Present, Soft, Non Tender Extremities: No edema 10/03/17 00:49: pH 7.60 H*, Bicarbonate Actual 30.5 H, POC Total CO2 31, Base Excess 9 H, O2 Saturation 99, ABG pCO2 31.2 L, ABG pO2 95, David Test POS 10/03/17 08:38: Sodium 143, Potassium 3.3 L, Chloride 104, Carbon Dioxide 31.0, Anion Gap 8, BUN 19 H, Creatinine 0.64, Est GFR (MDRD) Af Amer 115, Est GFR (MDRD) Non-Af 95, BUN/Creatinine Ratio 29.7 H, Glucose 132 H, Calcium 8.7, Magnesium 2.3 10/03/17 12:31: pH 7.53 H, Bicarbonate Actual 30.2 H, POC Total CO2 31, Base Excess 7 H, O2 Saturation 89 L, ABG pCO2 36.6, ABG pO2 51 L, David Test POS Rhythm: Underlying rhythm compatible with atrial fibrillation with electronic ventricular paced rhythm EKG: As noted above ECHO: 08/04/2016: Left ventricle: LVEF 55%; moderate left atrial enlargement; mild MR; mild TR; bioprosthetic aortic valve; ICD/pacemaker leads in the right atrium and right ventricle with the right ventricle appearing mildly dilated Cardiac Cath: 09/24/2015: Left main normal; LAD with mild disease; LCx with no high-grade disease; intermediate ramus with no high-grade disease; RCA with no high-grade disease; aortic valve considered severely stenotic with an aortic valve area of 0.36 cm? CT Surgery: 10/26/2015: [facility]; [place], [place]; CABG with RANDLE to the LAD; aortic valve replacement with a 21 mm Magna Ease pericardial valve CXR: As noted above Assessment/Plan 1. Atrial fibrillation The patient appears to have developed atrial fibrillation. This may be secondary to her underlying pulmonary disease process superimposed upon her underlying chronic cardiovascular disease process. At the present time she is on rate control therapy. This includes her oral beta-gene therapy and IV diltiazem therapy. She may need additional agents in attempt to bring her rate and rhythm under better control such as IV amiodarone. She should be considered for anticoagulant therapy with Lovenox or IV heparin and depending upon her clinical course consideration for long-term oral anticoagulant therapy if the risk benefit ratio is in her favor. Dending upon her clinical course she may need eventual attempt at regaining sinus rhythm with synchronized biphasic DC cardioversion. 2. Paroxysmal ventricular tachycardia She reportedly has a history of paroxysmal ventricular tachycardia. She will continue to be monitored. She will continue medical management with her beta-gene therapy. Additional antiarrhythmic therapy can be used as deemed appropriate. She does have an ICD in place. 3. CHF She does appear to have signs and symptoms compatible with underlying CHF. This may be brought out by her underlying pulmonary disease process superimposed upon her cardiovascular disease process. She will need to continue medical management. This will include diuretic therapy with electrolyte supplementation. 4. Cardiomyopathy The does have an underlying cardiomyopathy. There are concerns whether this is CAD related, valvular related, or another form of a cardiomyopathy. At the present time she will continue medical management. This will include agents such as nitrates as needed, beta-blockers, diuretics, afterload reducing agents, etc. All LV size wall motion systolic function can be reassessed with a transthoracic echocardiogram as needed. 5. CAD status post RANDLE to the LAD At the time of her surgery she received a RANDLE to the LAD. She does have an indeterminate troponin. It is unclear as or whether this is a primary acute coronary syndrome event versus more likely being related to a type II event from supply demand mismatch secondary to her underlying acute pulmonary disease process superimposed upon her chronic cardiovascular disease process. At the moment would be reasonable to continue her medical management. She can be reassessed as deemed appropriate. 6. Status post aortic valve replacement-bioprosthetic The patient is status post the aforementioned surgery. She will continue to have her aortic valve monitored by history, exam, and echocardiogram. She will continue AHA antibiotic prophylaxis. 7. ICD The patient does have an underlying ICD in place. It is a biventricular device. It is a [employer]-D model # N164 serial #[id number] implanted on 05/20/2012. 8. Hypertension The patient will continue have her blood pressures monitored. She will be reassessed as needed. 9. Hyperlipidemia The patient will continue lipid-lowering therapy as deemed appropriate. 10. Pneumonia The patient will continue evaluation care per internal medicine and pulmonology. Comment: The above was discussed and reviewed with the [facility] hospitalist staff. This note was generated with [employer] dictation software. It may contain incorrect words, spelling, and punctuation that were not noted in checking the note before signing.
--- NOTE | 2017-10-03 14:41 | CON.PCM_ITS ---
Problem List (1) Paroxysmal atrial fibrillation Status: Chronic (2) Paroxysmal ventricular tachycardia Status: Chronic (3) CHF (congestive heart failure) Status: Acute Qualifiers: Heart failure type: unspecified Heart failure chronicity: acute on chronic Qualified Code(s): I50.9 - Heart failure, unspecified (4) Cardiomyopathy Status: Chronic Qualifiers: Cardiomyopathy type: unspecified Qualified Code(s): I42.9 - Cardiomyopathy , unspecified (5) Atherosclerotic heart disease of [place] coronary artery without angina pectoris Status: Chronic Qualifiers: [place] vs. transplanted heart: [place] heart Qualified Code(s): I25.10 - Atherosclerotic heart disease of [place] coronary artery without angina pectoris Comment: CABG x1 RANDLE-LAD x/Aortic Valve Replacement (6) History of aortic valve replacement with bioprosthetic valve Status: Chronic (7) Biventricular ICD (implantable cardioverter-defibrillator) in place Status: Chronic (8) HTN (hypertension) Status: Chronic Qualifiers: Hypertension type: essential hypertension Qualified Code(s): I10 - Essential (primary) hypertension (9) Hyperlipidemia Status: Chronic Qualifiers: Hyperlipidemia type: pure hypercholesterolemia Qualified Code(s): E78.00 - Pure hypercholesterolemia, unspecified; E78.00 - Pure hypercholesterolemia, unspecified; E78.00 - Pure hypercholesterolemia, unspecified; E78.0 - Pure hypercholesterolemia (10) multilobar HCAP Status: Acute Reason for Consult Date of Consultation: 10/03/17 History of Present Illness: The patient is a 82 year old white female who is referred for evaluation of atrial fibrillation superimposed upon a history of paroxysmal ventricular tachycardia, on chronic CHF, non-CAD related cardiomyopathy, CAD status post CABG with RANDLE to the LAD, status post aortic valve replacement-bioprosthetic ( 21 mm Magna Ease pericardial valve), ICD, hypertension, hyperlipidemia, superimposed upon underlying pneumonia. The patient states that she has had progressive shortness of breath and dyspnea. She did not necessarily complain of ongoing chest discomfort nor has she had any overt observations palpitations or rapid rates. She does not believe her defibrillator discharge. She does not recall any near-syncope or syncope. She was brought to the hospital for further evaluation. She has been diagnosed with concerns of an underlying pneumonia. She has initiated medical management. However, she was subsequently noted to develop atrial fibrillation. She was evaluated by internal medicine and placed on IV diltiazem. She had laboratory studies performed. She did have a troponin I level that was considered indeterminate. Her ECG suggested a ventricular paced rhythm with underlying atrial fibrillation. A chest x-ray was performed. She appeared to have bilateral infiltrates and increased pulmonary vascularity with the right being greater than the left. [] Past Medical History Allergies/Adverse Reactions: Allergies adhesive Allergy (Verified 09/30/17 21:57) Unknown etodolac Allergy (Verified 09/30/17 21:57) Unknown magnesium Allergy (Verified 09/30/17 21:57) Unknown melatonin Allergy (Verified 09/30/17 21:57) Unknown nitroglycerin Allergy (Verified 09/30/17 21:57) Unknown oxycodone HCl [From Percocet] Allergy (Verified 09/30/17 21:57) Unknown phenobarbital Allergy (Verified 09/30/17 21:57) Unknown tolmetin sodium [From Tolectin] Allergy (Verified 09/30/17 21:57) Unknown venlafaxine Allergy (Verified 09/30/17 21:57) Unknown coenzyme Q10 Allergy (Uncoded 09/30/17 21:57) Unknown nitropatch Allergy (Uncoded 09/30/17 21:57) unknown Home Medications: Ambulatory Orders Medication Instructions Recorded Magnesium Oxide [Mag-Ox 400] 400 mg PO DAILY 09/17/15 Nitroglycerin [Nitrostat] 0.4 mg SUBLINGUAL Q5M PRN 09/20/15 coenzyme Q10 200 mg capsule 200 mg PO DAILY 05/05/17 gabapentin 100 mg capsule 200 mg PO BID 05/05/17 melatonin 3 mg tablet 3 mg PO HS PRN 05/07/17 amlodipine 5 mg tablet 5 mg PO DAILY 06/23/17 atorvastatin 40 mg tablet 20 mg PO QHS tab 06/23/17 furosemide 40 mg tablet 40 mg PO DAILY 06/23/17 Carvedilol [Coreg (Beta Gene)] 25 mg PO BID 07/06/17 Cholecalciferol (Vitamin D3) 1,000 unit PO DAILY 07/06/17 [Vitamin D3] Acetaminophen [Tylenol] 1,000 mg PO Q8 14 Days tablet 09/19/17 Aspirin 325 mg PO BIDCM 30 Days tablet 09/19/17 Lisinopril [Zestril] 40 mg PO DAILY tablet 09/19/17 Senna/Docusate Sodium [Senokot-S] 2 tab PO BID #20 tab 09/19/17 traMADol [Ultram] 50 - 100 mg PO Q6H PRN PRN 7 Days 09/19/17 #56 tab Albuterol Aerosols [Ventolin 2.5 mg INHALATION Q4H PRN PRN 09/30/17 Aerosols] Antifungal 1 % TOPICAL BID 09/30/17 Ceftriaxone [Rocephin] 2 gm IV Q24 09/30/17 Diphenhydramine HCl [Diphenhist] 25 mg PO Q4H PRN PRN 09/30/17 Famotidine [Pepcid] 20 mg PO BID 09/30/17 Metronidazole [Flagyl] 500 mg PO Q8 09/30/17 Omeprazole [Prilosec] 20 mg PO DAILY 09/30/17 Potassium Chloride [K-Dur] 20 meq PO DAILY 09/30/17 Past Medical History (Chronic Problems): Chronic Problems (Last Updated 06/23/17 @ 17:11 by oTo Cote NP-C) Cardiomyopathy (Chronic) Ischemic cardiomyopathy (Chronic) Paroxysmal atrial fibrillation (Chronic) 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) Hyperthyroidism (Chronic) Hypokalemia (Chronic) Atherosclerotic heart disease of [place] coronary artery without angina pectoris (Chronic) CABG x1 RANDLE-LAD x/Aortic Valve Replacement Left bundle-branch block (Chronic) Nonrheumatic aortic valve stenosis (Chronic) HTN (hypertension) (Chronic) Other chest pain (Chronic) Presence of aortocoronary bypass graft (Chronic) Dyspnea on exertion (Chronic) Fatigue (Chronic) Chronic pulmonary heart disease (Chronic) CVA (cerebral infarction) (Chronic) Hyperlipidemia (Chronic) Paroxysmal ventricular tachycardia (Chronic) HTN (hypertension) (Chronic) Hypothyroidism associated with surgical procedure (Chronic) had a subtotal thyroidectomy for goiter Hemorrhoids (Chronic) Restless leg syndrome (Chronic) TIA (transient ischemic attack) (Chronic) multiple History of aortic valve replacement with bioprosthetic valve (Chronic) Surgical History: appendectomy, cholecystectomy, coronary bypass surgery, hysterectomy - She still has ovaries and fallopian tubes. The hysterectomy was done for dysfunctional uterine bleeding., pacemaker implantation, total hip arthroplasty, - - Bioprosthetic aortic valve replacement with CABG in October 2015 Psychiatric History: No pertinent psych hx [employer] History: dysfunctional uterine bld - *Family History Maternal Family History: Family History (Last Reviewed 06/23/17 @ 15:49 by Susannah Brooks) Father Myocardial infarction, Onset Age: 45 Hypertension Heart disease Mother Myocardial infarction, Onset Age: 64 CAD (coronary artery disease) Hypertension Brother Myocardial infarction, Onset Age: 59 Heart disease CAD (coronary artery disease) CVA (cerebral vascular accident) Hypertension Sister CAD (coronary artery disease) Hypertension Daughter Diabetes HLD (hyperlipidemia) Son Hypertension HLD (hyperlipidemia) CAD (coronary artery disease) History Items: Heart Disease, Hypertension Paternal Family History: Family History (Last Reviewed 06/23/17 @ 15:49 by Susannah Brooks) Father Myocardial infarction, Onset Age: 45 Hypertension Heart disease Mother Myocardial infarction, Onset Age: 64 CAD (coronary artery disease) Hypertension Brother Myocardial infarction, Onset Age: 59 Heart disease CAD (coronary artery disease) CVA (cerebral vascular accident) Hypertension Sister CAD (coronary artery disease) Hypertension Daughter Diabetes HLD (hyperlipidemia) Son Hypertension HLD (hyperlipidemia) CAD (coronary artery disease) History Items: High Cholesterol, Heart Disease Smoking Status: Never smoker Alcohol: None Drugs: None Review of Systems - Review of Systems General: Denies: Fever, Night Sweats, Fatigue Cardiovascular: Reports: Shortness of Breath, Shortness of Breath at Rest. Denies: Chest Discomfort, Orthopnea, PND, Peripheral Edema, Palpitations, Lightheadedness, Dizziness, Near Syncope, Syncope Respiratory: Reports: Shortness of Breath. Denies: Cough, Sputum Production, Hemoptysis Gastrointestinal: Denies: Hematemesis, Hematochezia, Melena Genitourinary: Denies: Dysuria, Hematuria Skin: Denies: Rash Subjectve: This is an 82-year-old white female who appears to be resting reasonably comfortably at this time with her oxygen mask in place. Objective: Vital Signs Temp Pulse Resp BP Pulse Ox 99.5 F H 122 H 36 H 144/78 H 98 10/03/17 11:00 10/03/17 13:46 10/03/17 13:46 10/03/17 13:00 10/03/17 13:46 Oxygen Flow Rate (L/min) 15 Oxygen Delivery Method Bi-pap Weight: 168 lb 3.403 oz Body Mass Index (BMI) 30.7 Intake and Output for Last 24 Hours 10/01/17 10/02/17 10/03/17 23:59 23:59 23:59 Intake Total 1936 / 1936 982.5 / 982.5 361.4 / 361.4 Output Total 400 / 400 3800 / 3800 325 / 325 Balance 1536 / 1536 -2817.5 / -2817.5 36.4 / 36.4 General: Awake, Alert, Oriented x 3, Cooperative HEENT: Atraumatic, Normocephalic, PERRL, EOMI, Sclera Non Icteric Oral: Moist Mucosa Neck: Supple, Good ROM, Positive JVD Lungs: Rhonchi Cardiovascular: Irregular Rhythm, Normal S1, Normal S2 Murmur Murmur: Grade 2/6, Mid Systolic, LLSB, LVOT, Sternal Notch Abdomen: Bowel Sounds Present, Soft, Non Tender Extremities: No edema 10/03/17 00:49: pH 7.60 H*, Bicarbonate Actual 30.5 H, POC Total CO2 31, Base Excess 9 H, O2 Saturation 99, ABG pCO2 31.2 L, ABG pO2 95, David Test POS 10/03/17 08:38: Sodium 143, Potassium 3.3 L, Chloride 104, Carbon Dioxide 31.0, Anion Gap 8, BUN 19 H, Creatinine 0.64, Est GFR (MDRD) Af Amer 115, Est GFR ( MDRD) Non-Af 95, BUN/Creatinine Ratio 29.7 H, Glucose 132 H, Calcium 8.7, Magnesium 2.3 10/03/17 12:31: pH 7.53 H, Bicarbonate Actual 30.2 H, POC Total CO2 31, Base Excess 7 H, O2 Saturation 89 L, ABG pCO2 36.6, ABG pO2 51 L, David Test POS Rhythm: Underlying rhythm compatible with atrial fibrillation with electronic ventricular paced rhythm EKG: As noted above ECHO: 08/04/2016: Left ventricle: LVEF 55%; moderate left atrial enlargement; mild MR; mild TR; bioprosthetic aortic valve; ICD/pacemaker leads in the right atrium and right ventricle with the right ventricle appearing mildly dilated Cardiac Cath: 09/24/2015: Left main normal; LAD with mild disease; LCx with no high-grade disease; intermediate ramus with no high-grade disease; RCA with no high-grade disease; aortic valve considered severely stenotic with an aortic valve area of 0.36 cm? CT Surgery: 10/26/2015: [facility]; [place], [place]; CABG with RANDLE to the LAD; aortic valve replacement with a 21 mm Magna Ease pericardial valve CXR: As noted above Assessment/Plan 1. Atrial fibrillation The patient appears to have developed atrial fibrillation. This may be secondary to her underlying pulmonary disease process superimposed upon her underlying chronic cardiovascular disease process. At the present time she is on rate control therapy. This includes her oral beta -gene therapy and IV diltiazem therapy. She may need additional agents in attempt to bring her rate and rhythm under better control such as IV amiodarone. She should be considered for anticoagulant therapy with Lovenox or IV heparin and depending upon her clinical course consideration for long-term oral anticoagulant therapy if the risk benefit ratio is in her favor. Dending upon her clinical course she may need eventual attempt at regaining sinus rhythm with synchronized biphasic DC cardioversion. 2. Paroxysmal ventricular tachycardia She reportedly has a history of paroxysmal ventricular tachycardia. She will continue to be monitored. She will continue medical management with her beta- gene therapy. Additional antiarrhythmic therapy can be used as deemed appropriate. She does have an ICD in place. 3. CHF She does appear to have signs and symptoms compatible with underlying CHF. This may be brought out by her underlying pulmonary disease process superimposed upon her cardiovascular disease process. She will need to continue medical management. This will include diuretic therapy with electrolyte supplementation. 4. Cardiomyopathy The does have an underlying cardiomyopathy. There are concerns whether this is CAD related, valvular related, or another form of a cardiomyopathy. At the present time she will continue medical management. This will include agents such as nitrates as needed, beta-blockers, diuretics, afterload reducing agents, etc. All LV size wall motion systolic function can be reassessed with a transthoracic echocardiogram as needed. 5. CAD status post RANDLE to the LAD At the time of her surgery she received a RANDLE to the LAD. She does have an indeterminate troponin. It is unclear as or whether this is a primary acute coronary syndrome event versus more likely being related to a type II event from supply demand mismatch secondary to her underlying acute pulmonary disease process superimposed upon her chronic cardiovascular disease process. At the moment would be reasonable to continue her medical management. She can be reassessed as deemed appropriate. 6. Status post aortic valve replacement-bioprosthetic The patient is status post the aforementioned surgery. She will continue to have her aortic valve monitored by history, exam, and echocardiogram. She will continue AHA antibiotic prophylaxis. 7. ICD The patient does have an underlying ICD in place. It is a biventricular device. It is a [employer] GOV[employer]MENT [employer]ATIONS MANAGER-D model # N164 serial #[id number] implanted on 05/20/2012. 8. Hypertension The patient will continue have her blood pressures monitored. She will be reassessed as needed. 9. Hyperlipidemia The patient will continue lipid-lowering therapy as deemed appropriate. 10. Pneumonia The patient will continue evaluation care per internal medicine and pulmonology. Comment: The above was discussed and reviewed with the [facility] hospitalist staff. This note was generated with 3[employer] dictation software. It may contain incorrect words, spelling, and punctuation that were not noted in checking the note before signing.
[2017-10-03] MEDS: Acetaminophen 650 MG Suppository RECTAL ×2 (15:35→23:41)
[2017-10-03] MEDS: Furosemide 40 MG/4 ML Vial IV (16:14)
[2017-10-03 16:43] LABS: Absolute Lymphocyte Count 0.81 X10^3/ul (0.83-4.51); Absolute Neutrophil Count 11.4 X10^3/uL (2.0-7.7); Basophil# 0.01 X10^3/uL; Basophil% 0.1 % (0-1); Eosinophil# 0.13 X10^3/uL; Hematocrit 31.3 % (37-47); Hemoglobin 9.9 g/dl (12.0-15.0); Lymphocyte # 0.81 X10^3/ul (4.0); Lymphocyte % 6.2 % (19-41); Mean Corp Hgb Conc 31.6 g/gl (32-36); Mean Corpuscular Hgb 29.7 pg (27.0-32.0); Mean Platelet Vol. 10.4 fl (6.2-12.0); Monocyte# 0.64 X10^3/uL; Monocyte% 4.9 % (0-10); Neutrophil # 11.42 X10^3/uL (2.7-7.7); Neutrophil % 87.6 % (47-70); Platelet Count 301 K/mm3 (150-450); RBC Distribution Width CV 14.4 % (11.6-14.6); RBC Distribution Width SD 49.6 fl (35.1-43.9); Red Blood Count 3.33 M/mm3 (4.2-5.4)
[2017-10-03 16:44] LABS: POSITIVE COUNT NO; POSITIVE DIFFERENTIAL NO; POSITIVE MORPHOLOGY NO
[2017-10-03 17:07] LABS: Magnesium 2.3 mg/dL (1.6-2.6)
[2017-10-03] MEDS: Enoxaparin 80 MG/0.8 ML Syringe SC (17:47)
--- NOTE | 2017-10-03 19:31 | NURSING ---
CODE STATUS: Pt agreed to intubation up to 2 weeks if necessary. Pt refused a trach. Conversation witnessed by Cindy Sim
[2017-10-04] VITALS (36 sets, daily range): BP systolic 95–149; BP diastolic 54–97; PULSE 34–102; RESP 12–32; TEMP 36.5–38.4; O2SAT 88–99
[2017-10-04] MEDS: Enoxaparin 80 MG/0.8 ML Syringe SC ×2 (05:11→18:13)
[2017-10-04] MEDS: Piperacil/Tazobactam 3.375 GM/50 ML ML IV ×3 (05:12→21:17)
[2017-10-04] MEDS: CHLORHEXIDINE GLUC 2% CLOTH 1 EACH TOWELETTE TOPICAL (05:29)
[2017-10-04 05:40] LABS: Anion Gap 8 (5-15); BUN 19 mg/dL (7-18); BUN/Creat Ratio 30.5 RATIO (10-20); Calcium,Total 8.8 mg/dL (8.5-10.1); Chloride 103 mmol/L (98-107); Creatinine, Serum 0.62 mg/dL (0.55-1.02); EST Glomerular Filtration Rate 98 mL/min (>60); Est Glom Filt Rate - Afr Amer 118 mL/min (>60); Estimated Creatinine Clearance 37.12 ml/min; Glucose 125 mg/dL (74-106); Potassium 3.4 mmol/L (3.5-5.1); Sodium Level 143 mmol/L (136-145)
[2017-10-04] MEDS: 0.9% NaCl IVPB Med Flush (250 mL) 15 ML IV (06:37)
--- NOTE | 2017-10-04 06:39 | PCM.PN.INT ---
Subjective: The patient was seen and examined at the bedside this morning. Events from the last 24 hours have been reviewed. The patient is currently afebrile, hemodynamically stable and maintaining appropriate oxygen saturations on BiPAP with an FiO2 requirement of 40%. As noted previously, the patient developed A. fib with RVR 2 nights ago and subsequently went on to develop worsening respiratory distress yesterday morning. She was placed on a Cardizem drip for rate control. Cardiology was consulted. The patient was then transferred back to the intensive care unit for the initiation of BiPAP therapy. No overnight issues were identified. Repeat plain film chest x-ray obtained yesterday revealed continued evidence of bilateral airspace disease, largely unchanged from previous. Potassium is low this morning at 3.4. The patient has been continued on IV Lasix 40 mg twice daily. She is currently overall net -1.8 L for the admission. She reports improvement in her shortness of breath since being restarted on BiPAP. Objective: The patient's most recent lab work, culture data and imaging studies have all been personally reviewed. C. difficile was negative. Respiratory viral panel was negative. Strep and urine Legionella antigens were both negative. Blood and urine cultures are pending. Surface echocardiogram dated July 2016 revealed normal LV size and function with an ejection fraction of 55%. Pulmonary artery systolic pressure was estimated to be 48 mmHg. General: Alert, Cooperative, No apparent distress, - - Currently tolerating BiPAP without issue HEENT: Atraumatic, PERRLA, Normocephalic Oral: Dry Mucosa Neck: Supple, No Nodes, Trachea Midline Lungs: Diminished, Rales, Rhonchi Cardiovascular: Normal S1, Normal S2, Irregular Rate, Murmur, No rub noted, No Gallop Abdomen: Bowel Sounds Present, Soft, Non Tender, Non-Distended Extremities: No clubbing, No cyanosis, No edema Skin: - - No significant change from previous. Musculoskeletal: No Muscle Wasting Lymphatic: No Cervical, Supraclavicular, or Inguinal Adenopathy Neurological: Neuro grossly intact Psych/Mental Status: Normal Affect, Appropriate Vital Signs Temp Pulse Resp BP Pulse Ox 97.8 F 97 22 H 119/71 94 10/04/17 06:00 10/04/17 06:00 10/04/17 06:00 10/04/17 06:00 05/27/18 06:00 Oxygen Flow Rate (L/min) 15 Oxygen Delivery Method Bi-pap Weight: 163 lb 9.328 oz Body Mass Index (BMI) 30.7 Intake and Output for Last 24 Hours 10/02/17 10/03/17 10/04/17 23:59 23:59 23:59 Intake Total 982.5 / 982.5 1133.4 / 1133.4 162 / 162 Output Total 3800 / 3800 1625 / 1625 200 / 200 Balance -2817.5 / -2817.5 -491.6 / -491.6 -38 / -38 Labs (Last 48 Hours) 10/02/17 10/03/17 10/03/17 04:10 00:49 08:38 WBC RBC Hgb Hct MCV MCH MCHC RDW RDW Differential Plt Count MPV Immature Gran % (Auto) Neut % (Auto) Lymph % (Auto) Taylor % (Auto) Eos % (Auto) Baso % (Auto) Absolute Neuts (auto) Absolute Lymphs (auto) Total Counted Specimen Type ART Sample Site R Radial pH 7.60 H* Bicarbonate Actual 30.5 H POC Total CO2 31 Base Excess 9 H O2 Saturation 99 O2 % 55 ABG pCO2 31.2 L ABG pO2 95 David Test POS Respiration Rate 12 O2 Delivery Device Bi / C PAP EPAP 8 IPAP 12 Blood Gas Notified Whom HOSP Blood Gas Notified Time 35 Sodium 143 Potassium 3.3 L Chloride 104 Carbon Dioxide 31.0 Anion Gap 8 BUN 19 H Creatinine 0.64 Estim Creat Clear Calc 37.12 Est GFR (MDRD) Af Amer 115 Est GFR (MDRD) Non-Af 95 BUN/Creatinine Ratio 29.7 H Glucose 132 H Calcium 8.7 Magnesium 2.3 Troponin I 0.073 H 10/03/17 10/03/17 10/03/17 12:31 16:35 16:35 WBC 13.0 H RBC 3.33 L Hgb 9.9 L Hct 31.3 L MCV 94.0 MCH 29.7 MCHC 31.6 L RDW 14.4 RDW Differential 49.6 H Plt Count 301 MPV 10.4 Immature Gran % (Auto) 0.200 Neut % (Auto) 87.6 H Lymph % (Auto) 6.2 L Taylor % (Auto) 4.9 Eos % (Auto) 1.0 Baso % (Auto) 0.1 Absolute Neuts (auto) 11.4 H Absolute Lymphs (auto) 0.81 L Total Counted Not Reportable Specimen Type ART Sample Site L Radial pH 7.53 H Bicarbonate Actual 30.2 H POC Total CO2 31 Base Excess 7 H O2 Saturation 89 L O2 % 40 ABG pCO2 36.6 ABG pO2 51 L David Test POS Respiration Rate 12 O2 Delivery Device Bi / C PAP EPAP 5 IPAP 10 Blood Gas Notified Whom [facility] Blood Gas Notified Time 1229 Sodium Potassium Chloride Carbon Dioxide Anion Gap BUN Creatinine Estim Creat Clear Calc Est GFR (MDRD) Af Amer Est GFR (MDRD) Non-Af BUN/Creatinine Ratio Glucose Calcium Magnesium 2.3 Troponin I 10/04/17 05:10 WBC RBC Hgb Hct MCV MCH MCHC RDW RDW Differential Plt Count MPV Immature Gran % (Auto) Neut % (Auto) Lymph % (Auto) Taylor % (Auto) Eos % (Auto) Baso % (Auto) Absolute Neuts (auto) Absolute Lymphs (auto) Total Counted Specimen Type Sample Site pH Bicarbonate Actual POC Total CO2 Base Excess O2 Saturation O2 % ABG pCO2 ABG pO2 David Test Respiration Rate O2 Delivery Device EPAP IPAP Blood Gas Notified Whom Blood Gas Notified Time Sodium 143 Potassium 3.4 L Chloride 103 Carbon Dioxide 32.0 Anion Gap 8 BUN 19 H Creatinine 0.62 Estim Creat Clear Calc 37.12 Est GFR (MDRD) Af Amer 118 Est GFR (MDRD) Non-Af 98 BUN/Creatinine Ratio 30.5 H Glucose 125 H Calcium 8.8 Magnesium Troponin I Microbiology 10/02/17 07:40 Sputum, Expectorated/Coughed Gram Stain - Final 10/02/17 07:40 Sputum, Expectorated/Coughed Respiratory Culture - Preliminary Coag Negative Staph 10/01/17 00:06 Blood Culture (Wb) #2 - Left Hand Blood Culture - Preliminary No growth in 48 hours. 10/01/17 07:00 Urine Catheter - Yang Urine Culture - Final Culture exhibits no growth. Clinical Impression(s) from Imaging Studies Chest X-Ray 09/30/17 22:05 IMPRESSION: Multiple bilateral perihilar nodules or nodular-type infiltrates more severe on the right. This probably represents pulmonary edema however cannot exclude inflammatory disease or neoplasm. Clinical correlation recommended Electronically Signed: Zac Chandler MD at 22:48 EDT , Service support , Chest X-Ray 10/01/17 07:10 IMPRESSION: Progressive bilateral airspace disease worse in the right hemithorax. Electronically Signed: Reggie Castillo MD at 9:37 EDT Tel [phone], Service support , Chest X-Ray 10/02/17 03:10 IMPRESSION: No significant change since previous examination. Extensive bilateral infiltrates markedly worse on the right side. Lucency in the left upper chest as described above. Follow-up examination is recommended. Electronically Signed: Art Joseph MD at 3:48 EDT Tel , Service support , Chest X-Ray 10/03/17 08:14 IMPRESSION: Bilateral infiltrates essentially unchanged since prior examination. Electronically Signed: Art Joseph MD at 9:23 EDT Tel , Service support , Medical Necessity - Tobacco Use Smoking Status: Never smoker Assessment/Plan Active and Suspected Problems (Last Updated 06/23/17 @ 17:11 by Too Cote, RIB CHOPPER-C) multilobar HCAP (Acute) Acute respiratory failure with hypoxia (Acute) CHF (congestive heart failure) (Acute) RECOMMENDATIONS: 1. Continue antibiotics. 2. Continue intermittent BiPAP and wean as tolerated. Goal to maintain oxygen saturations at or above 90%. 3. Continue gentle diuresis with IV Lasix. 4. Rate/rhythm control per cardiology recommendations 5. Potassium repletion ordered 6. Encourage incentive spirometer use and mobilize patient as tolerated. IMPRESSIONS: 1. Acute hypoxemic respiratory failure, likely secondary to healthcare associated pneumonia The patient presented with dyspnea and required the initiation of BiPAP support. She has responded favorably from a clinical perspective to the use of BiPAP and broad-spectrum antibiotics in treatment for multifocal pneumonia. Given the patient's recent hospitalizations and [facility], she will be maintained on broad-spectrum antibiotics in treatment for HCAP. The patient's recent respiratory decompensation was likely the consequence of her atrial fibrillation with RVR. She is currently under adequate rate control with use of Cardizem. She responded again favorably to the use of BiPAP. She will be weaned as tolerated. Oxygen saturation should be maintained at or above 90%. Encourage incentive spirometer use and mobilize patient as tolerated. Continue gentle diuresis with IV Lasix as ordered. 2. Atrial fibrillation with RVR/Personal history of coronary artery disease status post CABG/aortic valve disease status post replacement/ICD in situ Continue rate/rhythm control therapy per cardiology recommendations. 3. Hypokalemia Electrolyte repletion is underway. Recheck levels in the morning. 4. 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 This appears to have resolved at this time. 5. Advanced age/neuropathy/hypertension/hyperlipidemia/GERD Complicates care, management, recovery and prognosis. The patient is a documented DNR CCA on file. Physical therapy to continue to work with patient. This note was generated with [employer] dictation software. It may contain incorrect words, spelling, and punctuation that were not noted in checking the note before signing. Code Visit Inpatient E&M: 02004 [facility] L3
--- NOTE | 2017-10-04 06:43 | PN_ITS ---
Subjective: The patient was seen and examined at the bedside this morning. Events from the last 24 hours have been reviewed. The patient is currently afebrile, hemodynamically stable and maintaining appropriate oxygen saturations on BiPAP with an FiO2 requirement of 40%. As noted previously, the patient developed A. fib with RVR 2 nights ago and subsequently went on to develop worsening respiratory distress yesterday morning. She was placed on a Cardizem drip for rate control. Cardiology was consulted. The patient was then transferred back to the intensive care unit for the initiation of BiPAP therapy. No overnight issues were identified. Repeat plain film chest x-ray obtained yesterday revealed continued evidence of bilateral airspace disease, largely unchanged from previous. Potassium is low this morning at 3.4. The patient has been continued on IV Lasix 40 mg twice daily. She is currently overall net -1.8 L for the admission. She reports improvement in her shortness of breath since being restarted on BiPAP. Objective: The patient's most recent lab work, culture data and imaging studies have all been personally reviewed. C. difficile was negative. Respiratory viral panel was negative. Strep and urine Legionella antigens were both negative. Blood and urine cultures are pending. Surface echocardiogram dated July 2016 revealed normal LV size and function with an ejection fraction of 55%. Pulmonary artery systolic pressure was estimated to be 48 mmHg. General: Alert, Cooperative, No apparent distress, - - Currently tolerating BiPAP without issue HEENT: Atraumatic, PERRLA, Normocephalic Oral: Dry Mucosa Neck: Supple, No Nodes, Trachea Midline Lungs: Diminished, Rales, Rhonchi Cardiovascular: Normal S1, Normal S2, Irregular Rate, Murmur, No rub noted, No Gallop Abdomen: Bowel Sounds Present, Soft, Non Tender, Non-Distended Extremities: No clubbing, No cyanosis, No edema Skin: - - No significant change from previous. Musculoskeletal: No Muscle Wasting Lymphatic: No Cervical, Supraclavicular, or Inguinal Adenopathy Neurological: Neuro grossly intact Psych/Mental Status: Normal Affect, Appropriate Vital Signs Temp Pulse Resp BP Pulse Ox 97.8 F 97 22 H 119/71 94 10/04/17 06:00 10/04/17 06:00 10/04/17 06:00 10/04/17 06:00 05/27/18 06:00 Oxygen Flow Rate (L/min) 15 Oxygen Delivery Method Bi-pap Weight: 163 lb 9.328 oz Body Mass Index (BMI) 30.7 Intake and Output for Last 24 Hours 10/02/17 10/03/17 10/04/17 23:59 23:59 23:59 Intake Total 982.5 / 982.5 1133.4 / 1133.4 162 / 162 Output Total 3800 / 3800 1625 / 1625 200 / 200 Balance -2817.5 / -2817.5 -491.6 / -491.6 -38 / -38 Labs (Last 48 Hours) 10/02/17 10/03/17 10/03/17 04:10 00:49 08:38 WBC RBC Hgb Hct MCV MCH MCHC RDW RDW Differential Plt Count MPV Immature Gran % (Auto) Neut % (Auto) Lymph % (Auto) [place] % (Auto) Eos % (Auto) Baso % (Auto) Absolute Neuts (auto) Absolute Lymphs (auto) Total Counted Specimen Type ART Sample Site R Radial pH 7.60 H* Bicarbonate Actual 30.5 H POC Total CO2 31 Base Excess 9 H O2 Saturation 99 O2 % 55 ABG pCO2 31.2 L ABG pO2 95 David Test POS Respiration Rate 12 O2 Delivery Device Bi / C PAP EPAP 8 IPAP 12 Blood Gas Notified Whom HOSP Blood Gas Notified Time 35 Sodium 143 Potassium 3.3 L Chloride 104 Carbon Dioxide 31.0 Anion Gap 8 BUN 19 H Creatinine 0.64 Estim Creat Clear Calc 37.12 Est GFR (MDRD) Af Amer 115 Est GFR (MDRD) Non-Af 95 BUN/Creatinine Ratio 29.7 H Glucose 132 H Calcium 8.7 Magnesium 2.3 Troponin I 0.073 H 10/03/17 10/03/17 10/03/17 12:31 16:35 16:35 WBC 13.0 H RBC 3.33 L Hgb 9.9 L Hct 31.3 L MCV 94.0 MCH 29.7 MCHC 31.6 L RDW 14.4 RDW Differential 49.6 H Plt Count 301 MPV 10.4 Immature Gran % (Auto) 0.200 Neut % (Auto) 87.6 H Lymph % (Auto) 6.2 L [place] % (Auto) 4.9 Eos % (Auto) 1.0 Baso % (Auto) 0.1 Absolute Neuts (auto) 11.4 H Absolute Lymphs (auto) 0.81 L Total Counted Not Reportable Specimen Type ART Sample Site L Radial pH 7.53 H Bicarbonate Actual 30.2 H POC Total CO2 31 Base Excess 7 H O2 Saturation 89 L O2 % 40 ABG pCO2 36.6 ABG pO2 51 L David Test POS Respiration Rate 12 O2 Delivery Device Bi / C PAP EPAP 5 IPAP 10 Blood Gas Notified Whom [facility] Blood Gas Notified Time 1229 Sodium Potassium Chloride Carbon Dioxide Anion Gap BUN Creatinine Estim Creat Clear Calc Est GFR (MDRD) Af Amer Est GFR (MDRD) Non-Af BUN/Creatinine Ratio Glucose Calcium Magnesium 2.3 Troponin I 10/04/17 05:10 WBC RBC Hgb Hct MCV MCH MCHC RDW RDW Differential Plt Count MPV Immature Gran % (Auto) Neut % (Auto) Lymph % (Auto) [place] % (Auto) Eos % (Auto) Baso % (Auto) Absolute Neuts (auto) Absolute Lymphs (auto) Total Counted Specimen Type Sample Site pH Bicarbonate Actual POC Total CO2 Base Excess O2 Saturation O2 % ABG pCO2 ABG pO2 David Test Respiration Rate O2 Delivery Device EPAP IPAP Blood Gas Notified Whom Blood Gas Notified Time Sodium 143 Potassium 3.4 L Chloride 103 Carbon Dioxide 32.0 Anion Gap 8 BUN 19 H Creatinine 0.62 Estim Creat Clear Calc 37.12 Est GFR (MDRD) Af Amer 118 Est GFR (MDRD) Non-Af 98 BUN/Creatinine Ratio 30.5 H Glucose 125 H Calcium 8.8 Magnesium Troponin I Microbiology 10/02/17 07:40 Sputum, Expectorated/Coughed Gram Stain - Final 10/02/17 07:40 Sputum, Expectorated/Coughed Respiratory Culture - Preliminary Coag Negative Staph 10/01/17 00:06 Blood Culture (Wb) #2 - Left Hand Blood Culture - Preliminary No growth in 48 hours. 10/01/17 07:00 Urine Catheter - Yang Urine Culture - Final Culture exhibits no growth. Clinical Impression(s) from Imaging Studies Chest X-Ray 09/30/17 22:05 IMPRESSION: Multiple bilateral perihilar nodules or nodular-type infiltrates more severe on the right. This probably represents pulmonary edema however cannot exclude inflammatory disease or neoplasm. Clinical correlation recommended Electronically Signed: Zac Chandler MD at 22:48 EDT , Service support , Chest X-Ray 10/01/17 07:10 IMPRESSION: Progressive bilateral airspace disease worse in the right hemithorax. Electronically Signed: Reggie Castillo MD at 9:37 EDT Tel [phone], Service support , Chest X-Ray 10/02/17 03:10 IMPRESSION: No significant change since previous examination. Extensive bilateral infiltrates markedly worse on the right side. Lucency in the left upper chest as described above. Follow-up examination is recommended. Electronically Signed: Art Joseph MD at 3:48 EDT Tel , Service support , Chest X-Ray 10/03/17 08:14 IMPRESSION: Bilateral infiltrates essentially unchanged since prior examination. Electronically Signed: Art Joseph MD at 9:23 EDT Tel , Service support , Medical Necessity - Tobacco Use Smoking Status: Never smoker Assessment/Plan Active and Suspected Problems (Last Updated 06/23/17 @ 17:11 by oTo Cote, ACCOUNT MANAGER EDUCATION- C) multilobar HCAP (Acute) Acute respiratory failure with hypoxia (Acute) CHF (congestive heart failure) (Acute) RECOMMENDATIONS: 1. Continue antibiotics. 2. Continue intermittent BiPAP and wean as tolerated. Goal to maintain oxygen saturations at or above 90%. 3. Continue gentle diuresis with IV Lasix. 4. Rate/rhythm control per cardiology recommendations 5. Potassium repletion ordered 6. Encourage incentive spirometer use and mobilize patient as tolerated. IMPRESSIONS: 1. Acute hypoxemic respiratory failure, likely secondary to healthcare associated pneumonia The patient presented with dyspnea and required the initiation of BiPAP support. She has responded favorably from a clinical perspective to the use of BiPAP and broad-spectrum antibiotics in treatment for multifocal pneumonia. Given the patient's recent hospitalizations and residence at a care home facility, she will be maintained on broad-spectrum antibiotics in treatment for HCAP. The patient's recent respiratory decompensation was likely the consequence of her atrial fibrillation with RVR. She is currently under adequate rate control with use of Cardizem. She responded again favorably to the use of BiPAP. She will be weaned as tolerated. Oxygen saturation should be maintained at or above 90%. Encourage incentive spirometer use and mobilize patient as tolerated. Continue gentle diuresis with IV Lasix as ordered. 2. Atrial fibrillation with RVR/Personal history of coronary artery disease status post CABG/aortic valve disease status post replacement/ICD in situ Continue rate/rhythm control therapy per cardiology recommendations. 3. Hypokalemia Electrolyte repletion is underway. Recheck levels in the morning. 4. 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 This appears to have resolved at this time. 5. Advanced age/neuropathy/hypertension/hyperlipidemia/GERD Complicates care, management, recovery and prognosis. The patient is a documented DNR CCA on file. Physical therapy to continue to work with patient. This note was generated with [employer] dictation software. It may contain incorrect words, spelling, and punctuation that were not noted in checking the note before signing. Code Visit Inpatient E&M: 27077 [facility] Hosp L3
[2017-10-04] MEDS: Aspirin E.C. 81 MG Tablet PO (07:39)
[2017-10-04] MEDS: Furosemide 40 MG/4 ML Vial IV ×2 (07:40→18:33)
[2017-10-04] MEDS: amLODIPine 5 MG Tablet PO (07:43)
[2017-10-04] MEDS: Famotidine 20 MG Tablet PO ×2 (07:43→21:17)
[2017-10-04] MEDS: Lisinopril 40 MG Tablet PO (07:44)
[2017-10-04] MEDS: Magnesium Oxide 400 MG Tablet PO (07:44)
[2017-10-04] MEDS: guaiFENesin 1,200 MG Tablet 1200 MG PO ×2 (07:45→21:17)
[2017-10-04] MEDS: Carvedilol 25 MG Tablet PO ×2 (07:45→21:16)
[2017-10-04] MEDS: Menthol/Lanolin/Calamine/Znox 113 GM Tube 1 APPLIC TOPICAL ×2 (07:54→21:17)
--- NOTE | 2017-10-04 08:58 | PCM.PN.HOSP ---
Patient Problems: Active and Suspected Problems (Last Updated 06/23/17 @ 17:11 by Too Cote NP-C) multilobar HCAP (Acute) Acute respiratory failure with hypoxia (Acute) CHF (congestive heart failure) (Acute) Subjective: Patient is an 82 year-old female with an extensive past medical history including history of paroxysmal A. fib, hypothyroidism, ischemic cardiomyopathy status post ICD in place, hypertension, history of aortic valve replacement with bioprosthetic valve due to aortic stenosis. She was admitted on 09/30/2017 with a complaint of cough and fever. She had associated chills. Chest x-ray showed nodular airspace opacities most pronounced in the right hemithorax. She has been managed for acute respiratory failure likely due to pneumonia. She was initially started on vancomycin and Zosyn, vancomycin was weaned off of the MRSA screen was negative. She was transferred out of the ICU after she was weaned down to 3 L of oxygen after being on BiPAP for a while. Seen and examined this morning. She was transferred back to ICU yesterday after she became more hypoxic and tachypneic. Repeat ABGs done yesterday showed no significant change from previously and only showed persistent respiratory alkalosis. Patient was put back on BiPAP and transferred to ICU for closer monitoring. FiO2 was weaned down was in ICU and she is down to 40%. She is currently on Ventimask and is saturating around 92%. She admitted to cough and chills as well as fever overnight. She says she is not short of breath that she was prior to coming back up to ICU. Review of systems otherwise negative. She remains on Cardizem drip. Vitals/I&O's: Vital Signs Temp Pulse Resp BP Pulse Ox 97.8 F 88 20 H 106/74 91 10/04/17 06:00 10/04/17 08:00 10/04/17 08:00 10/04/17 08:00 10/04/17 08:00 Oxygen Flow Rate (L/min) 8 Oxygen Delivery Method Venturi Mask Weight: 163 lb 9.328 oz Body Mass Index (BMI) 30.7 Intake and Output for Last 24 Hours 10/02/17 10/03/17 10/04/17 23:59 23:59 23:59 Intake Total 982.5 / 982.5 1133.4 / 1133.4 162 / 162 Output Total 3800 / 3800 1625 / 1625 200 / 200 Balance -2817.5 / -2817.5 -491.6 / -491.6 -38 / -38 General: Alert, Oriented x3, Cooperative, No apparent distress HEENT: Atraumatic, PERRLA, EOMI, Normocephalic Oral: Moist Mucosa Neck: Supple, No JVD, Negative Carotid Bruits Lungs: - - Still has some coarse crackles bibasally. Has adequate breathsounds bilaterally. Cardiovascular: Regular rate, Normal S1, Normal S2, No murmurs, Irregular Rate Abdomen: Bowel Sounds Present, Soft, Non Tender, Non-Distended, No Hepato-splenomegaly Extremities: No clubbing, No cyanosis, No edema, Capillary Refill Less than 3 Seconds Skin: No rashes, No breakdown Musculoskeletal: No Tenderness to Palpation of Joints or Extremities Lymphatic: No Cervical, Supraclavicular, or Inguinal Adenopathy Neurological: Neuro grossly intact Psych/Mental Status: Normal Affect, Appropriate, Alert and oriented to time, place, person, mood and affect Microbiology Past 72 Hours 10/02/17 07:40 Sputum, Expectorated/Coughed Gram Stain - Final 10/02/17 07:40 Sputum, Expectorated/Coughed Respiratory Culture - Final Coag Negative Staph 10/01/17 00:06 Blood Culture (Wb) #2 - Left Hand Blood Culture - Preliminary No growth in 48 hours. 10/01/17 07:00 Urine Catheter - Yang Urine Culture - Final Culture exhibits no growth. 10/01/17 07:59 Mucosa - Nasopharyngeal Respiratory Panel (PCR) - Final 10/01/17 08:40 Stool C. difficile DNA Amplification - Final 10/01/17 07:00 Urine Catheter - Yang Streptococcus pneumoniae Antigen (M - Final Laboratory Results 10/03/17 08:38: Sodium 143, Potassium 3.3 L, Chloride 104, Carbon Dioxide 31.0, Anion Gap 8, BUN 19 H, Creatinine 0.64, Estim Creat Clear Calc 37.12, Est GFR (MDRD) Af Amer 115, Est GFR (MDRD) Non-Af 95, BUN/Creatinine Ratio 29.7 H, Glucose 132 H, Calcium 8.7, Magnesium 2.3 10/03/17 12:31: Specimen Type ART, Sample Site L Radial, pH 7.53 H, Bicarbonate Actual 30.2 H, POC Total CO2 31, Base Excess 7 H, O2 Saturation 89 L, O2 % 40, ABG pCO2 36.6, ABG pO2 51 L, David Test POS, Respiration Rate 12, O2 Delivery Device Bi / C PAP, EPAP 5, IPAP 10, Blood Gas Notified Whom ZHAO MCQUEEN, Blood Gas Notified Time 1229 10/03/17 16:35: WBC 13.0 H, RBC 3.33 L, Hgb 9.9 L, Hct 31.3 L, MCV 94.0, MCH 29.7, MCHC 31.6 L, RDW 14.4, RDW Differential 49.6 H, Plt Count 301, MPV 10.4, Immature Gran % (Auto) 0.200, Neut % (Auto) 87.6 H, Lymph % (Auto) 6.2 L, [place] % (Auto) 4.9, Eos % (Auto) 1.0, Baso % (Auto) 0.1, Absolute Neuts (auto) 11.4 H, Absolute Lymphs (auto) 0.81 L, Total Counted Not Reportable 10/03/17 16:35: Magnesium 2.3 10/04/17 05:10: Sodium 143, Potassium 3.4 L, Chloride 103, Carbon Dioxide 32.0, Anion Gap 8, BUN 19 H, Creatinine 0.62, Estim Creat Clear Calc 37.12, Est GFR (MDRD) Af Amer 118, Est GFR (MDRD) Non-Af 98, BUN/Creatinine Ratio 30.5 H, Glucose 125 H, Calcium 8.8 Current Medications Acetaminophen (Tylenol) 650 mg PO Q4H PRN PRN PRN Reason: FEVER Last Admin: 10/02/17 21:46 Dose: 650 mg Acetaminophen (Tylenol) 650 mg RECTAL Q6H PRN PRN PRN Reason: temp>101 / Pain Last Admin: 10/03/17 23:41 Dose: 650 mg Albuterol Sulfate (Ventolin Aerosols) 2.5 mg INHALATION Q2H PRN PRN PRN Reason: SHORTNESS OF BREATH Last Admin: 10/02/17 20:26 Dose: 2.5 mg Amlodipine Besylate (Norvasc) 5 mg PO DAILY WENDY Last Admin: 10/04/17 07:43 Dose: 5 mg Aspirin (Ecotrin) 81 mg PO DAILY [facility] Last Admin: 10/04/17 08:23 Dose: Not Given Atorvastatin Calcium (Lipitor) 20 mg PO QHS [facility] Last Admin: 10/03/17 21:02 Dose: Not Given Calamine/Phenol (Calmoseptine Ointment) 1 applic TOPICAL BID [facility] PRN Reason: Protocol Last Admin: 10/04/17 07:54 Dose: 1 applicatio Carvedilol (Coreg) 25 mg PO BID [facility] Last Admin: 10/04/17 07:45 Dose: 25 mg Chlorhexidine Gluconate () 1 each TOPICAL DAILY [facility] Last Admin: 10/04/17 05:29 Dose: 1 each Enoxaparin Sodium (Lovenox) 80 mg 1 mg/kg (80 mg) SC Q12@0600,1800 [facility] Last Admin: 10/04/17 05:11 Dose: 80 mg Famotidine (Pepcid) 20 mg PO BID [facility] Last Admin: 10/04/17 07:43 Dose: 20 mg Furosemide (Lasix) 40 mg IV BID@1000,1800 [facility] Last Admin: 10/04/17 07:40 Dose: 40 mg Guaifenesin (Mucinex) 1,200 mg PO BID [facility] Last Admin: 10/04/17 07:45 Dose: 1,200 mg Piperacillin Sod/Tazobactam Sod (Zosyn) 3.375 gm in 50 mls @ 12.5 mls/hr IV Q8 [facility] Last Admin: 10/04/17 05:12 Dose: 12.5 mls/hr Sodium Chloride () 250 mls @ 15 mls/hr IV .[id number] PRN PRN Reason: SALINE FLUSH Last Admin: 10/04/17 06:37 Dose: 15 mls/hr Diltiazem HCl 125 mg/ Dextrose 125 mls @ 5 mls/hr CONT INF .Q25H [facility] PRN Reason: 5 MG/HR Last Admin: 10/04/17 08:28 Dose: 5 mls/hr Potassium Chloride (Kcl 10meq/100ml) 10 meq in 100 mls @ 100 mls/hr IV BOLUS Q1H [facility] Stop: 10/04/17 10:29 Last Admin: 10/04/17 08:48 Dose: 100 mls/hr Labetalol HCl (Trandate) 10 mg IV Q4H PRN PRN PRN Reason: HR > 120 Last Admin: 10/02/17 23:06 Dose: 10 mg Lisinopril (Zestril) 40 mg PO DAILY [facility] Last Admin: 10/04/17 07:44 Dose: 40 mg Magnesium Oxide (Mag-Ox 400) 400 mg PO DAILY [facility] Last Admin: 10/04/17 07:44 Dose: 400 mg Nitroglycerin (Nitrostat) 0.4 mg SUBLINGUAL Q5M PRN PRN Reason: Chest Pain Nutritional Formula (Lactose Free) (Ensure Enlive) 120 ml PO 4X/DAY [facility] Last Admin: 10/03/17 21:01 Dose: Not Given Ondansetron HCl (Zofran) 4 mg IV Q8H PRN PRN PRN Reason: NAUSEA Last Admin: 10/03/17 01:08 Dose: 4 mg Senna/Docusate Sodium (Senokot-S, Dilia-Colace) 2 tablet PO BID [facility] Last Admin: 10/04/17 07:43 Dose: Not Given Sodium Chloride () 5 - 30 ml IV UD PRN PRN Reason: SALINE FLUSH Last Admin: 10/03/17 05:22 Dose: 5 ml Tramadol HCl (Ultram) 50 mg PO Q6H PRN PRN PRN Reason: PAIN Medical Necessity - Tobacco Use Smoking Status: Never smoker Assessment/Plan Active and Suspected Problems (Last Updated 06/23/17 @ 17:11 by Too Cote BUSINESS SEGMENT MANAGER-C) multilobar HCAP (Acute) Acute respiratory failure with hypoxia (Acute) CHF (congestive heart failure) (Acute) 82-year-old female with extensive past history admitted with a complaint of shortness of breath, cough and fever. Sputum grew coagulase negative staph but MRSA screen was negative. Patient be managed for healthcare associated pneumonia and acute respiratory failure due to pneumonia. She developed A. fib with RVR and was started on Cardizem drip. She has been on IV Zosyn. 1. Health associated pneumonia resolving. Still on IV zosyn-day 5 white cell count was ~ 13 yesterday; pending today. still remains tachycardic. Transferred to ICU overnight because of worsening hypoxia blood cultures showed no grown. Urine for strep antigen is negative. Sputum cultured coagulase negative staphy. discussed with pulmonary; to maintain on IV zosyn for now. 2. Acute hypoxic hypercapnic respiratory failure due to pneumonia and possible flash pulmonary edema from Afib Patient became even more tachypneic and hypoxic yesterday and was transferred back to ICU after being put on BiPAP Initially on 80% oxygen with BiPAP. FiO2 now down to 40%. Patient seen this morning and she was on Ventimask with 50% oxygen. ABGs done yesterday showed respiratory alkalosis with hypoxia. On breathing treatments with albuterol and Atrovent. Pulmoon board. Discussed with pulmonary; to maintain patient in ICU for now. It is likely the patient going into A. fib with RVR to apparent worsening hypoxia. Xray yesterday showed bilateral pulmonary infiltrates which were unchanged from previous. Hopefully with control of A. fib with RVR, hypoxia will improve. 3. Afib with RVR: Remains on Cardizem drip. Rate is much better controlled. Patient is however mildly hypotensive with systolic in the 80s. On Lovenox subcut 80 mg every 12hrs for anticoagulation. Discuss with cardiology about switching to oral anticoagulation as patient is rate controlled was put on cardizem drip overnight. Currently rate controlled. 4. CHF will get 2D echo in light of acute Afib with RVR. on IV lasix 40mg bid in negative balance by ~ 491mls over last 24 hours. 5. history of paroxysmal vtach s/p ICD placement. has remained stable. on coreg. 6. Severe aortic stenosis s/p bioprosthetic aortic valve replacement. Stable 7. Hypokalemia: K is 3.4 today. Will replace and monitor. Mg is WNL. 8. Hypertension: on amlodipine, coreg and lisinopril 9. 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 on aspirin. 10. DVT prophylaxis: lovenox for therapeutic anticoagulation for Afib 11. GI prophylaxis: famotidine This note was generated with [employer] dictation software. It may contain incorrect words, spelling, and punctuation that were not noted in checking the note before signing. Code Visit Inpatient E&M: 11376 [facility] Hosp L3
--- NOTE | 2017-10-04 09:11 | PN_ITS ---
Patient Problems: Active and Suspected Problems (Last Updated 06/23/17 @ 17:11 by Too Cote NP- C) multilobar HCAP (Acute) Acute respiratory failure with hypoxia (Acute) CHF (congestive heart failure) (Acute) Subjective: Patient is an 82 year-old female with an extensive past medical history including history of paroxysmal A. fib, hypothyroidism, ischemic cardiomyopathy status post ICD in place, hypertension, history of aortic valve replacement with bioprosthetic valve due to aortic stenosis. She was admitted on 09/30/2017 with a complaint of cough and fever. She had associated chills. Chest x-ray showed nodular airspace opacities most pronounced in the right hemithorax. She has been managed for acute respiratory failure likely due to pneumonia. She was initially started on vancomycin and Zosyn, vancomycin was weaned off of the MRSA screen was negative. She was transferred out of the ICU after she was weaned down to 3 L of oxygen after being on BiPAP for a while. Seen and examined this morning. She was transferred back to ICU yesterday after she became more hypoxic and tachypneic. Repeat ABGs done yesterday showed no significant change from previously and only showed persistent respiratory alkalosis. Patient was put back on BiPAP and transferred to ICU for closer monitoring. FiO2 was weaned down was in ICU and she is down to 40%. She is currently on Ventimask and is saturating around 92%. She admitted to cough and chills as well as fever overnight. She says she is not short of breath that she was prior to coming back up to ICU. Review of systems otherwise negative. She remains on Cardizem drip. Vitals/I&O's: Vital Signs Temp Pulse Resp BP Pulse Ox 97.8 F 88 20 H 106/74 91 10/04/17 06:00 10/04/17 08:00 10/04/17 08:00 10/04/17 08:00 10/04/17 08:00 Oxygen Flow Rate (L/min) 8 Oxygen Delivery Method Venturi Mask Weight: 163 lb 9.328 oz Body Mass Index (BMI) 30.7 Intake and Output for Last 24 Hours 10/02/17 10/03/17 10/04/17 23:59 23:59 23:59 Intake Total 982.5 / 982.5 1133.4 / 1133.4 162 / 162 Output Total 3800 / 3800 1625 / 1625 200 / 200 Balance -2817.5 / -2817.5 -491.6 / -491.6 -38 / -38 General: Alert, Oriented x3, Cooperative, No apparent distress HEENT: Atraumatic, PERRLA, EOMI, Normocephalic Oral: Moist Mucosa Neck: Supple, No JVD, Negative Carotid Bruits Lungs: - - Still has some coarse crackles bibasally. Has adequate breathsounds bilaterally. Cardiovascular: Regular rate, Normal S1, Normal S2, No murmurs, Irregular Rate Abdomen: Bowel Sounds Present, Soft, Non Tender, Non-Distended, No Hepato- splenomegaly Extremities: No clubbing, No cyanosis, No edema, Capillary Refill Less than 3 Seconds Skin: No rashes, No breakdown Musculoskeletal: No Tenderness to Palpation of Joints or Extremities Lymphatic: No Cervical, Supraclavicular, or Inguinal Adenopathy Neurological: Neuro grossly intact Psych/Mental Status: Normal Affect, Appropriate, Alert and oriented to time, place, person, mood and affect Microbiology Past 72 Hours 10/02/17 07:40 Sputum, Expectorated/Coughed Gram Stain - Final 10/02/17 07:40 Sputum, Expectorated/Coughed Respiratory Culture - Final Coag Negative Staph 10/01/17 00:06 Blood Culture (Wb) #2 - Left Hand Blood Culture - Preliminary No growth in 48 hours. 10/01/17 07:00 Urine Catheter - Yang Urine Culture - Final Culture exhibits no growth. 10/01/17 07:59 Mucosa - Nasopharyngeal Respiratory Panel (PCR) - Final 10/01/17 08:40 Stool C. difficile DNA Amplification - Final 10/01/17 07:00 Urine Catheter - Yang Streptococcus pneumoniae Antigen (M - Final Laboratory Results 10/03/17 08:38: Sodium 143, Potassium 3.3 L, Chloride 104, Carbon Dioxide 31.0, Anion Gap 8, BUN 19 H, Creatinine 0.64, Estim Creat Clear Calc 37.12, Est GFR ( MDRD) Af Amer 115, Est GFR (MDRD) Non-Af 95, BUN/Creatinine Ratio 29.7 H, Glucose 132 H, Calcium 8.7, Magnesium 2.3 10/03/17 12:31: Specimen Type ART, Sample Site L Radial, pH 7.53 H, Bicarbonate Actual 30.2 H, POC Total CO2 31, Base Excess 7 H, O2 Saturation 89 L, O2 % 40, ABG pCO2 36.6, ABG pO2 51 L, David Test POS, Respiration Rate 12, O2 Delivery Device Bi / C PAP, EPAP 5, IPAP 10, Blood Gas Notified Whom ZHAO MCQUEEN, Blood Gas Notified Time 1229 10/03/17 16:35: WBC 13.0 H, RBC 3.33 L, Hgb 9.9 L, Hct 31.3 L, MCV 94.0, MCH 29.7, MCHC 31.6 L, RDW 14.4, RDW Differential 49.6 H, Plt Count 301, MPV 10.4, Immature Gran % (Auto) 0.200, Neut % (Auto) 87.6 H, Lymph % (Auto) 6.2 L, [place] % (Auto) 4.9, Eos % (Auto) 1.0, Baso % (Auto) 0.1, Absolute Neuts (auto) 11.4 H , Absolute Lymphs (auto) 0.81 L, Total Counted Not Reportable 10/03/17 16:35: Magnesium 2.3 10/04/17 05:10: Sodium 143, Potassium 3.4 L, Chloride 103, Carbon Dioxide 32.0, Anion Gap 8, BUN 19 H, Creatinine 0.62, Estim Creat Clear Calc 37.12, Est GFR ( MDRD) Af Amer 118, Est GFR (MDRD) Non-Af 98, BUN/Creatinine Ratio 30.5 H, Glucose 125 H, Calcium 8.8 Current Medications Acetaminophen (Tylenol) 650 mg PO Q4H PRN PRN PRN Reason: FEVER Last Admin: 10/02/17 21:46 Dose: 650 mg Acetaminophen (Tylenol) 650 mg RECTAL Q6H PRN PRN PRN Reason: temp>101 / Pain Last Admin: 10/03/17 23:41 Dose: 650 mg Albuterol Sulfate (Ventolin Aerosols) 2.5 mg INHALATION Q2H PRN PRN PRN Reason: SHORTNESS OF BREATH Last Admin: 10/02/17 20:26 Dose: 2.5 mg Amlodipine Besylate (Norvasc) 5 mg PO DAILY [facility] Last Admin: 10/04/17 07:43 Dose: 5 mg Aspirin (Ecotrin) 81 mg PO DAILY [facility] Last Admin: 10/04/17 08:23 Dose: Not Given Atorvastatin Calcium (Lipitor) 20 mg PO QHS [facility] Last Admin: 10/03/17 21:02 Dose: Not Given Calamine/Phenol (Calmoseptine Ointment) 1 applic TOPICAL BID [facility] PRN Reason: Protocol Last Admin: 10/04/17 07:54 Dose: 1 applicatio Carvedilol (Coreg) 25 mg PO BID [facility] Last Admin: 10/04/17 07:45 Dose: 25 mg Chlorhexidine Gluconate () 1 each TOPICAL DAILY [facility] Last Admin: 10/04/17 05:29 Dose: 1 each Enoxaparin Sodium (Lovenox) 80 mg 1 mg/kg (80 mg) SC Q12@0600,1800 [facility] Last Admin: 10/04/17 05:11 Dose: 80 mg Famotidine (Pepcid) 20 mg PO BID [facility] Last Admin: 10/04/17 07:43 Dose: 20 mg Furosemide (Lasix) 40 mg IV BID@1000,1800 [facility] Last Admin: 10/04/17 07:40 Dose: 40 mg Guaifenesin (Mucinex) 1,200 mg PO BID [facility] Last Admin: 10/04/17 07:45 Dose: 1,200 mg Piperacillin Sod/Tazobactam Sod (Zosyn) 3.375 gm in 50 mls @ 12.5 mls/hr IV Q8 [facility] Last Admin: 10/04/17 05:12 Dose: 12.5 mls/hr Sodium Chloride () 250 mls @ 15 mls/hr IV .[id number] PRN PRN Reason: SALINE FLUSH Last Admin: 10/04/17 06:37 Dose: 15 mls/hr Diltiazem HCl 125 mg/ Dextrose 125 mls @ 5 mls/hr CONT INF .Q25H [facility] PRN Reason: 5 MG/HR Last Admin: 10/04/17 08:28 Dose: 5 mls/hr Potassium Chloride (Kcl 10meq/100ml) 10 meq in 100 mls @ 100 mls/hr IV BOLUS Q1H [facility] Stop: 10/04/17 10:29 Last Admin: 10/04/17 08:48 Dose: 100 mls/hr Labetalol HCl (Trandate) 10 mg IV Q4H PRN PRN PRN Reason: HR > 120 Last Admin: 10/02/17 23:06 Dose: 10 mg Lisinopril (Zestril) 40 mg PO DAILY [facility] Last Admin: 10/04/17 07:44 Dose: 40 mg Magnesium Oxide (Mag-Ox 400) 400 mg PO DAILY [facility] Last Admin: 10/04/17 07:44 Dose: 400 mg Nitroglycerin (Nitrostat) 0.4 mg SUBLINGUAL Q5M PRN PRN Reason: Chest Pain Nutritional Formula (Lactose Free) (Ensure Enlive) 120 ml PO 4X/DAY [facility] Last Admin: 10/03/17 21:01 Dose: Not Given Ondansetron HCl (Zofran) 4 mg IV Q8H PRN PRN PRN Reason: NAUSEA Last Admin: 10/03/17 01:08 Dose: 4 mg Senna/Docusate Sodium (Senokot-S, Dilia-Colace) 2 tablet PO BID [facility] Last Admin: 10/04/17 07:43 Dose: Not Given Sodium Chloride () 5 - 30 ml IV UD PRN PRN Reason: SALINE FLUSH Last Admin: 10/03/17 05:22 Dose: 5 ml Tramadol HCl (Ultram) 50 mg PO Q6H PRN PRN PRN Reason: PAIN Medical Necessity - Tobacco Use Smoking Status: Never smoker Assessment/Plan Active and Suspected Problems (Last Updated 06/23/17 @ 17:11 by Too Cote CENTER MEDICAL DIRECTOR- C) multilobar HCAP (Acute) Acute respiratory failure with hypoxia (Acute) CHF (congestive heart failure) (Acute) 82-year-old female with extensive past history admitted with a complaint of shortness of breath, cough and fever. Sputum grew coagulase negative staph but MRSA screen was negative. Patient be managed for healthcare associated pneumonia and acute respiratory failure due to pneumonia. She developed A. fib with RVR and was started on Cardizem drip. She has been on IV Zosyn. 1. Health associated pneumonia * resolving. Still on IV zosyn-day 5 * white cell count was ~ 13 yesterday; pending today. * still remains tachycardic. Transferred to ICU overnight because of worsening hypoxia * blood cultures showed no grown. Urine for strep antigen is negative. * Sputum cultured coagulase negative staphy. * discussed with pulmonary; to maintain on IV zosyn for now. * * 2. Acute hypoxic hypercapnic respiratory failure due to pneumonia and possible flash pulmonary edema from Afib * Patient became even more tachypneic and hypoxic yesterday and was transferred back to ICU after being put on BiPAP * Initially on 80% oxygen with BiPAP. FiO2 now down to 40%. Patient seen this morning and she was on Ventimask with 50% oxygen. * ABGs done yesterday showed respiratory alkalosis with hypoxia. * On breathing treatments with albuterol and Atrovent. * Pulmoon board. Discussed with pulmonary; to maintain patient in ICU for now. It is likely the patient going into A. fib with RVR to apparent worsening hypoxia. * Xray yesterday showed bilateral pulmonary infiltrates which were unchanged from previous. * Hopefully with control of A. fib with RVR, hypoxia will improve. * * 3. Afib with RVR: * Remains on Cardizem drip. Rate is much better controlled. Patient is however mildly hypotensive with systolic in the 80s. * On Lovenox subcut 80 mg every 12hrs for anticoagulation. * Discuss with cardiology about switching to oral anticoagulation as patient is rate controlled * was put on cardizem drip overnight. Currently rate controlled. * 4. CHF * will get 2D echo in light of acute Afib with RVR. * on IV lasix 40mg bid * in negative balance by ~ 491mls over last 24 hours. * 5. history of paroxysmal vtach * s/p ICD placement. has remained stable. * on coreg. 6. Severe aortic stenosis s/p bioprosthetic aortic valve replacement. Stable 7. Hypokalemia: K is 3.4 today. Will replace and monitor. Mg is WNL. 8. Hypertension: on amlodipine, coreg and lisinopril 9. 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 on aspirin. 10. DVT prophylaxis: lovenox for therapeutic anticoagulation for Afib 11. GI prophylaxis: famotidine This note was generated with [employer] dictation software. It may contain incorrect words, spelling, and punctuation that were not noted in checking the note before signing. Code Visit Inpatient E&M: 53811 [facility] Hosp L3
--- NOTE | 2017-10-04 10:22 | CM.UR ---
Participated in interdisciplinary rounds this am. Family present at bedside. Patient was weaned from bipap to 50% kade-mask. Family are pleased with her improvement. respite worker already met with patient and family. Patient is currently at [facility] but may want to go to different facility at discharge. BRITTANY Coe already gave list of facilities in area. Case management will continue to follow for discharge planning. Eden Prabhakar RN, CCM.
[2017-10-04 10:36] LABS: Basophil# 0.01 X10^3/uL; Basophil% 0.1 % (0-1); Eosinophil# 0.68 X10^3/uL; Eosinophils% 4.8 % (0-5); Hematocrit 30.4 % (37-47); Hemoglobin 9.6 g/dl (12.0-15.0); Lymphocyte % 6.3 % (19-41); Mean Corp Hgb Conc 31.6 g/gl (32-36); Mean Corpuscular Hgb 29.9 pg (27.0-32.0); Mean Corpuscular Volume 94.7 fL (81-99); Mean Platelet Vol. 10.5 fl (6.2-12.0); Monocyte% 4.2 % (0-10); Neutrophil # 11.97 X10^3/uL (2.7-7.7); Neutrophil % 84.4 % (47-70); POSITIVE COUNT NO; POSITIVE DIFFERENTIAL NO; POSITIVE MORPHOLOGY NO; Platelet Count 312 K/mm3 (150-450); RBC Distribution Width CV 14.2 % (11.6-14.6); RBC Distribution Width SD 49.4 fl (35.1-43.9); Red Blood Count 3.21 M/mm3 (4.2-5.4); White Blood Count 14.2 K/mm3 (4.4-11.0)
--- NOTE | 2017-10-04 11:37 | PCM.PN.CARD ---
Subjectve: The patient is in the ICU secondary to her respiratory issues. She is currently on BiPAP with brakes. She denies any obvious chest discomfort at this time or sensation of palpitations. Objective: Vital Signs Temp Pulse Resp BP Pulse Ox 100.0 F H 71 28 H 99/75 92 10/04/17 11:00 10/04/17 11:09 10/04/17 11:09 10/04/17 11:00 10/04/17 11:09 Oxygen Flow Rate (L/min) 8 Oxygen Delivery Method Bi-pap Weight: 163 lb 9.328 oz Body Mass Index (BMI) 30.7 Intake and Output for Last 24 Hours 10/02/17 10/03/17 10/04/17 23:59 23:59 23:59 Intake Total 982.5 / 982.5 1133.4 / 1133.4 162 / 162 Output Total 3800 / 3800 1625 / 1625 200 / 200 Balance -2817.5 / -2817.5 -491.6 / -491.6 -38 / -38 General: Awake, Cooperative, Ill Appearing Lungs: Rhonchi Cardiovascular: Regular Rhythm, Normal S1, Normal S2 Murmur Murmur: Grade 2/6, Mid Systolic, LLSB, LVOT, Sternal Notch Abdomen: Bowel Sounds Present, Soft, Non Tender Extremities: No edema 10/03/17 12:31: pH 7.53 H, Bicarbonate Actual 30.2 H, POC Total CO2 31, Base Excess 7 H, O2 Saturation 89 L, ABG pCO2 36.6, ABG pO2 51 L, David Test POS 10/03/17 16:35: WBC 13.0 H, RBC 3.33 L, Hgb 9.9 L, Hct 31.3 L, MCV 94.0, MCH 29.7, MCHC 31.6 L, RDW 14.4, RDW Differential 49.6 H, Plt Count 301, MPV 10.4, Immature Gran % (Auto) 0.200, Neut % (Auto) 87.6 H, Lymph % (Auto) 6.2 L, [place] % (Auto) 4.9, Eos % (Auto) 1.0, Baso % (Auto) 0.1, Absolute Neuts (auto) 11.4 H, Total Counted Not Reportable 10/03/17 16:35: Magnesium 2.3 10/04/17 05:10: Sodium 143, Potassium 3.4 L, Chloride 103, Carbon Dioxide 32.0, Anion Gap 8, BUN 19 H, Creatinine 0.62, Est GFR (MDRD) Af Amer 118, Est GFR (MDRD) Non-Af 98, BUN/Creatinine Ratio 30.5 H, Glucose 125 H, Calcium 8.8 10/04/17 10:30: WBC 14.2 H, RBC 3.21 L, Hgb 9.6 L, Hct 30.4 L, MCV 94.7, MCH 29.9, MCHC 31.6 L, RDW 14.2, RDW Differential 49.4 H, Plt Count 312, MPV 10.5, Immature Gran % (Auto) 0.200, Neut % (Auto) 84.4 H, Lymph % (Auto) 6.3 L, [place] % (Auto) 4.2, Eos % (Auto) 4.8, Baso % (Auto) 0.1, Absolute Neuts (auto) 12.0 H, Total Counted Not Reportable Rhythm: An electronic ventricular paced rhythm appearing regular at this time Medical Necessity - Tobacco Use Smoking Status: Never smoker Assessment/Plan 1. Atrial fibrillation The patient appears to have developed atrial fibrillation. This may be secondary to her underlying pulmonary disease process superimposed upon her underlying chronic cardiovascular disease process. At the present time she is on rate control therapy. This includes her oral beta-hal therapy and IV diltiazem therapy. She may need additional agents in attempt to bring her rate and rhythm under better control such as IV amiodarone. He has been placed on anticoagulant therapy with Lovenox. Consideration want to be given as to whether she is a candidate for long-term systemic oral anticoagulant therapy. As an time it appears she has had improvement in her underlying ventricular rate and has had episodes of a regular electronic ventricular paced rhythm. An attempt will be made to wean her IV diltiazem down and off. 2. Paroxysmal ventricular tachycardia She reportedly has a history of paroxysmal ventricular tachycardia. She will continue to be monitored. She will continue medical management with her beta-hal therapy. Additional antiarrhythmic therapy can be used as deemed appropriate. She does have an ICD in place. 3. CHF She does appear to have signs and symptoms compatible with underlying CHF. This may be brought out by her underlying pulmonary disease process superimposed upon her cardiovascular disease process. She will need to continue medical management. This will include diuretic therapy with electrolyte supplementation. 4. Cardiomyopathy The does have an underlying cardiomyopathy. There are concerns whether this is CAD related, valvular related, or another form of a cardiomyopathy. At the present time she will continue medical management. This will include agents such as nitrates as needed, beta-blockers, diuretics, afterload reducing agents, etc. 5. CAD status post RANDLE to the LAD At the time of her surgery she received a RANDLE to the LAD. She does have an indeterminate troponin. It is unclear as or whether this is a primary acute coronary syndrome event versus more likely being related to a type II event from supply demand mismatch secondary to her underlying acute pulmonary disease process superimposed upon her chronic cardiovascular disease process. At the moment would be reasonable to continue her medical management. She can be reassessed as deemed appropriate. 6. Status post aortic valve replacement-bioprosthetic The patient is status post the aforementioned surgery. She will continue to have her aortic valve monitored by history, exam, and echocardiogram. She will continue AHA antibiotic prophylaxis. 7. ICD The patient does have an underlying ICD in place. It is a biventricular device. It is a [employer] Incepta RUNNER OUT-D model # N164 serial #[id number] implanted on 05/20/2012. 8. Hypertension The patient will continue have her blood pressures monitored. She will be reassessed as needed. 9. Hyperlipidemia The patient will continue lipid-lowering therapy as deemed appropriate. 10. Pneumonia The patient will continue evaluation care per internal medicine and pulmonology. Comment: The above was discussed and reviewed with patient. This note was generated with [employer] dictation software. It may contain incorrect words, spelling, and punctuation that were not noted in checking the note before signing.
--- NOTE | 2017-10-04 11:40 | PN.CARD_ITS ---
Subjectve: The patient is in the ICU secondary to her respiratory issues. She is currently on BiPAP with brakes. She denies any obvious chest discomfort at this time or sensation of palpitations. Objective: Vital Signs Temp Pulse Resp BP Pulse Ox 100.0 F H 71 28 H 99/75 92 10/04/17 11:00 10/04/17 11:09 10/04/17 11:09 10/04/17 11:00 10/04/17 11:09 Oxygen Flow Rate (L/min) 8 Oxygen Delivery Method Bi-pap Weight: 163 lb 9.328 oz Body Mass Index (BMI) 30.7 Intake and Output for Last 24 Hours 10/02/17 10/03/17 10/04/17 23:59 23:59 23:59 Intake Total 982.5 / 982.5 1133.4 / 1133.4 162 / 162 Output Total 3800 / 3800 1625 / 1625 200 / 200 Balance -2817.5 / -2817.5 -491.6 / -491.6 -38 / -38 General: Awake, Cooperative, Ill Appearing Lungs: Rhonchi Cardiovascular: Regular Rhythm, Normal S1, Normal S2 Murmur Murmur: Grade 2/6, Mid Systolic, LLSB, LVOT, Sternal Notch Abdomen: Bowel Sounds Present, Soft, Non Tender Extremities: No edema 10/03/17 12:31: pH 7.53 H, Bicarbonate Actual 30.2 H, POC Total CO2 31, Base Excess 7 H, O2 Saturation 89 L, ABG pCO2 36.6, ABG pO2 51 L, David Test POS 10/03/17 16:35: WBC 13.0 H, RBC 3.33 L, Hgb 9.9 L, Hct 31.3 L, MCV 94.0, MCH 29.7, MCHC 31.6 L, RDW 14.4, RDW Differential 49.6 H, Plt Count 301, MPV 10.4, Immature Gran % (Auto) 0.200, Neut % (Auto) 87.6 H, Lymph % (Auto) 6.2 L, [place] % (Auto) 4.9, Eos % (Auto) 1.0, Baso % (Auto) 0.1, Absolute Neuts (auto) 11.4 H , Total Counted Not Reportable 10/03/17 16:35: Magnesium 2.3 10/04/17 05:10: Sodium 143, Potassium 3.4 L, Chloride 103, Carbon Dioxide 32.0, Anion Gap 8, BUN 19 H, Creatinine 0.62, Est GFR (MDRD) Af Amer 118, Est GFR ( MDRD) Non-Af 98, BUN/Creatinine Ratio 30.5 H, Glucose 125 H, Calcium 8.8 10/04/17 10:30: WBC 14.2 H, RBC 3.21 L, Hgb 9.6 L, Hct 30.4 L, MCV 94.7, MCH 29.9, MCHC 31.6 L, RDW 14.2, RDW Differential 49.4 H, Plt Count 312, MPV 10.5, Immature Gran % (Auto) 0.200, Neut % (Auto) 84.4 H, Lymph % (Auto) 6.3 L, [place] % (Auto) 4.2, Eos % (Auto) 4.8, Baso % (Auto) 0.1, Absolute Neuts (auto) 12.0 H , Total Counted Not Reportable Rhythm: An electronic ventricular paced rhythm appearing regular at this time Medical Necessity - Tobacco Use Smoking Status: Never smoker Assessment/Plan 1. Atrial fibrillation The patient appears to have developed atrial fibrillation. This may be secondary to her underlying pulmonary disease process superimposed upon her underlying chronic cardiovascular disease process. At the present time she is on rate control therapy. This includes her oral beta -hal therapy and IV diltiazem therapy. She may need additional agents in attempt to bring her rate and rhythm under better control such as IV amiodarone. He has been placed on anticoagulant therapy with Lovenox. Consideration want to be given as to whether she is a candidate for long-term systemic oral anticoagulant therapy. As an time it appears she has had improvement in her underlying ventricular rate and has had episodes of a regular electronic ventricular paced rhythm. An attempt will be made to wean her IV diltiazem down and off. 2. Paroxysmal ventricular tachycardia She reportedly has a history of paroxysmal ventricular tachycardia. She will continue to be monitored. She will continue medical management with her beta- hal therapy. Additional antiarrhythmic therapy can be used as deemed appropriate. She does have an ICD in place. 3. CHF She does appear to have signs and symptoms compatible with underlying CHF. This may be brought out by her underlying pulmonary disease process superimposed upon her cardiovascular disease process. She will need to continue medical management. This will include diuretic therapy with electrolyte supplementation. 4. Cardiomyopathy The does have an underlying cardiomyopathy. There are concerns whether this is CAD related, valvular related, or another form of a cardiomyopathy. At the present time she will continue medical management. This will include agents such as nitrates as needed, beta-blockers, diuretics, afterload reducing agents, etc. 5. CAD status post RANDLE to the LAD At the time of her surgery she received a RANDLE to the LAD. She does have an indeterminate troponin. It is unclear as or whether this is a primary acute coronary syndrome event versus more likely being related to a type II event from supply demand mismatch secondary to her underlying acute pulmonary disease process superimposed upon her chronic cardiovascular disease process. At the moment would be reasonable to continue her medical management. She can be reassessed as deemed appropriate. 6. Status post aortic valve replacement-bioprosthetic The patient is status post the aforementioned surgery. She will continue to have her aortic valve monitored by history, exam, and echocardiogram. She will continue AHA antibiotic prophylaxis. 7. ICD The patient does have an underlying ICD in place. It is a biventricular device. It is a [employer] Incepta CLINICAL PHARMACY MANAGER-D model # N164 serial #[id number] implanted on 05/20/2012. 8. Hypertension The patient will continue have her blood pressures monitored. She will be reassessed as needed. 9. Hyperlipidemia The patient will continue lipid-lowering therapy as deemed appropriate. 10. Pneumonia The patient will continue evaluation care per internal medicine and pulmonology. Comment: The above was discussed and reviewed with patient. This note was generated with [employer] dictation software. It may contain incorrect words, spelling, and punctuation that were not noted in checking the note before signing.
[2017-10-04] MEDS: Acetaminophen 650 MG Suppository RECTAL (19:46)
[2017-10-04] MEDS: 0.9% NaCl Peripheral Flush Adult/Peds IV ×2 (20:05→21:17)
[2017-10-04] MEDS: Atorvastatin Calcium 20 MG Tablet PO (21:16)
--- NOTE | 2017-10-04 21:33 | NURSING ---
Pt. placed on 50% venti mask to give night time meds. Pt. tolerating well. Sats maintaining mid 90's. Pt. denies SOB. Will leave on venti mask for a break as long as pt. can tolerate.
--- NOTE | 2017-10-04 22:54 | NURSING ---
Pt. states that she is tired and wanting to go to sleep and requesting to be placed back on bipap.
[2017-10-05] VITALS (28 sets, daily range): BP systolic 101–150; BP diastolic 47–99; PULSE 73–105; RESP 12–32; TEMP 37.1–38.3; O2SAT 90–100
[2017-10-05] MEDS: CHLORHEXIDINE GLUC 2% CLOTH 1 EACH TOWELETTE TOPICAL (05:13)
[2017-10-05] MEDS: Piperacil/Tazobactam 3.375 GM/50 ML ML IV ×3 (05:13→21:39)
[2017-10-05] MEDS: Enoxaparin 80 MG/0.8 ML Syringe SC ×2 (05:13→17:36)
[2017-10-05 05:33] LABS: Absolute Lymphocyte Count 0.99 X10^3/ul (0.83-4.51); Absolute Neutrophil Count 10.2 X10^3/uL (2.0-7.7); Basophil# 0.01 X10^3/uL; Basophil% 0.1 % (0-1); Eosinophil# 0.73 X10^3/uL; Eosinophils% 5.7 % (0-5); Hematocrit 31.8 % (37-47); Lymphocyte # 0.99 X10^3/ul (4.0); Lymphocyte % 7.7 % (19-41); Mean Corp Hgb Conc 31.4 g/gl (32-36); Mean Corpuscular Hgb 30.2 pg (27.0-32.0); Mean Corpuscular Volume 96.1 fL (81-99); Mean Platelet Vol. 10.5 fl (6.2-12.0); Monocyte# 0.94 X10^3/uL; Monocyte% 7.3 % (0-10); POSITIVE COUNT NO; POSITIVE DIFFERENTIAL NO; POSITIVE MORPHOLOGY NO; Platelet Count 285 K/mm3 (150-450); RBC Distribution Width SD 47.2 fl (35.1-43.9); Red Blood Count 3.31 M/mm3 (4.2-5.4); White Blood Count 12.9 K/mm3 (4.4-11.0)
[2017-10-05 06:02] LABS: Anion Gap 9 (5-15); BUN 20 mg/dL (7-18); BUN/Creat Ratio 35.2 RATIO (10-20); Calcium,Total 8.9 mg/dL (8.5-10.1); Chloride 102 mmol/L (98-107); Creatinine, Serum 0.57 mg/dL (0.55-1.02); EST Glomerular Filtration Rate 109 mL/min (>60); Est Glom Filt Rate - Afr Amer 132 mL/min (>60); Estimated Creatinine Clearance 37.12 ml/min; Glucose 105 mg/dL (74-106); Potassium 3.3 mmol/L (3.5-5.1); Sodium Level 142 mmol/L (136-145)
--- NOTE | 2017-10-05 06:37 | PCM.PN.INT ---
Subjective: Patient did okay overnight. Patient was on BiPAP therapy for all but 1-1/2 hours overnight. Patient was taken off of Cardizem overnight. Patient continues to spike fever and staff noted mucoid diarrhea, so his C. difficile has been sent. Patient is denying any abdominal pain and no chest pain has been reported. Objective: Chest x-ray shows no specific changes. General: Alert, Oriented x3, Cooperative, No apparent distress HEENT: Atraumatic, PERRLA, EOMI, Normocephalic, - - Slight scleral injection without icterus Oral: Moist Mucosa, No Gingival or Mucosal Lesions/ Ulcerations Neck: Supple, No JVD, No Nodes, Trachea Midline Lungs: No rhonchi, No rales, Diminished, Wheezes, - - Symmetric expansion. No dullness to percussion. Cardiovascular: Normal S1, Normal S2, No murmurs, Irregular Rate, No rub noted, No Gallop Abdomen: Bowel Sounds Present, Soft, Non Tender, Non-Distended Extremities: No clubbing, No cyanosis, No edema, Capillary Refill Less than 3 Seconds Skin: No rashes, No breakdown Musculoskeletal: No Tenderness to Palpation of Joints or Extremities Lymphatic: No Cervical, Supraclavicular, or Inguinal Adenopathy Neurological: Cranial nerves II-XII grossly intact, Neuro grossly intact, Motor Exam 5/5 strength throughout Psych/Mental Status: Normal Affect, Appropriate Vital Signs Temp Pulse Resp BP Pulse Ox 37.1 C 84 27 H 142/74 H 99 10/05/17 06:00 10/05/17 06:00 10/05/17 06:00 10/05/17 06:00 10/05/17 06:00 Oxygen Flow Rate (L/min) 8 Oxygen Delivery Method Bi-pap Weight: 72.9 kg Body Mass Index (BMI) 30.7 Intake and Output for Last 24 Hours 10/03/17 10/04/17 10/05/17 23:59 23:59 23:59 Intake Total 1133.4 / 1133.4 1064 / 1064 66 / 66 Output Total 1625 / 1625 1525 / 1525 125 / 125 Balance -491.6 / -491.6 -461 / -461 -59 / -59 Labs (Last 48 Hours) 10/03/17 10/03/17 10/03/17 08:38 12:31 16:35 WBC 13.0 H RBC 3.33 L Hgb 9.9 L Hct 31.3 L MCV 94.0 MCH 29.7 MCHC 31.6 L RDW 14.4 RDW Differential 49.6 H Plt Count 301 MPV 10.4 Immature Gran % (Auto) 0.200 Neut % (Auto) 87.6 H Lymph % (Auto) 6.2 L [place] % (Auto) 4.9 Eos % (Auto) 1.0 Baso % (Auto) 0.1 Absolute Neuts (auto) 11.4 H Absolute Lymphs (auto) 0.81 L Total Counted Not Reportable Specimen Type ART Sample Site L Radial pH 7.53 H Bicarbonate Actual 30.2 H POC Total CO2 31 Base Excess 7 H O2 Saturation 89 L O2 % 40 ABG pCO2 36.6 ABG pO2 51 L David Test POS Respiration Rate 12 O2 Delivery Device Bi / C PAP EPAP 5 IPAP 10 Blood Gas Notified Whom HOSP Blood Gas Notified Time 1229 Sodium 143 Potassium 3.3 L Chloride 104 Carbon Dioxide 31.0 Anion Gap 8 BUN 19 H Creatinine 0.64 Estim Creat Clear Calc 37.12 Est GFR (MDRD) Af Amer 115 Est GFR (MDRD) Non-Af 95 BUN/Creatinine Ratio 29.7 H Glucose 132 H Calcium 8.7 Magnesium 2.3 10/03/17 10/04/17 10/04/17 16:35 05:10 10:30 WBC 14.2 H RBC 3.21 L Hgb 9.6 L Hct 30.4 L MCV 94.7 MCH 29.9 MCHC 31.6 L RDW 14.2 RDW Differential 49.4 H Plt Count 312 MPV 10.5 Immature Gran % (Auto) 0.200 Neut % (Auto) 84.4 H Lymph % (Auto) 6.3 L [place] % (Auto) 4.2 Eos % (Auto) 4.8 Baso % (Auto) 0.1 Absolute Neuts (auto) 12.0 H Absolute Lymphs (auto) 0.90 Total Counted Not Reportable Specimen Type Sample Site pH Bicarbonate Actual POC Total CO2 Base Excess O2 Saturation O2 % ABG pCO2 ABG pO2 David Test Respiration Rate O2 Delivery Device EPAP IPAP Blood Gas Notified Whom Blood Gas Notified Time Sodium 143 Potassium 3.4 L Chloride 103 Carbon Dioxide 32.0 Anion Gap 8 BUN 19 H Creatinine 0.62 Estim Creat Clear Calc 37.12 Est GFR (MDRD) Af Amer 118 Est GFR (MDRD) Non-Af 98 BUN/Creatinine Ratio 30.5 H Glucose 125 H Calcium 8.8 Magnesium 2.3 10/05/17 10/05/17 05:10 05:10 WBC 12.9 H RBC 3.31 L Hgb 10.0 L Hct 31.8 L MCV 96.1 MCH 30.2 MCHC 31.4 L RDW 14.0 RDW Differential 47.2 H Plt Count 285 MPV 10.5 Immature Gran % (Auto) 0.200 Neut % (Auto) 79.0 H Lymph % (Auto) 7.7 L [place] % (Auto) 7.3 Eos % (Auto) 5.7 H Baso % (Auto) 0.1 Absolute Neuts (auto) 10.2 H Absolute Lymphs (auto) 0.99 Total Counted Not Reportable Specimen Type Sample Site pH Bicarbonate Actual POC Total CO2 Base Excess O2 Saturation O2 % ABG pCO2 ABG pO2 David Test Respiration Rate O2 Delivery Device EPAP IPAP Blood Gas Notified Whom Blood Gas Notified Time Sodium 142 Potassium 3.3 L Chloride 102 Carbon Dioxide 31.0 Anion Gap 9 BUN 20 H Creatinine 0.57 Estim Creat Clear Calc 37.12 Est GFR (MDRD) Af Amer 132 Est GFR (MDRD) Non-Af 109 BUN/Creatinine Ratio 35.2 H Glucose 105 Calcium 8.9 Magnesium Microbiology 10/02/17 07:40 Sputum, Expectorated/Coughed Gram Stain - Final 10/02/17 07:40 Sputum, Expectorated/Coughed Respiratory Culture - Final Coag Negative Staph 10/01/17 00:06 Blood Culture (Wb) #2 - Left Hand Blood Culture - Preliminary No growth in 48 hours. 10/01/17 07:00 Urine Catheter - Yang Urine Culture - Final Culture exhibits no growth. Medical Necessity - Tobacco Use Smoking Status: Never smoker Assessment/Plan Active and Suspected Problems (Last Updated 06/23/17 @ 17:11 by Too Cote, MANAGER MOBILE-C) multilobar HCAP (Acute) Acute respiratory failure with hypoxia (Acute) CHF (congestive heart failure) (Acute) RECOMMENDATIONS: 1. Continue antibiotics. 2. Continue intermittent BiPAP, with breaks as tolerated. Goal to maintain oxygen saturations at or above 90%. 3. Continue gentle diuresis with IV Lasix. 4. Rate/rhythm control per cardiology recommendations 5. Potassium repletion ordered 6. Encourage incentive spirometer use and mobilize patient as tolerated. IMPRESSIONS: 1. Acute hypoxemic respiratory failure, likely secondary to healthcare associated pneumonia Overall, patient appears to be improving compared to previous. Patient continues to have high fevers and BiPAP requirement, but otherwise heart rate is much better controlled compared to previous. Patient is having some diarrhea, but has been on antibiotics. C. difficile is currently pending. Will attempt BiPAP breaks through the day today. 2. Atrial fibrillation with RVR/Personal history of coronary artery disease status post CABG/aortic valve disease status post replacement/ICD in situ Continue rate/rhythm control therapy per cardiology recommendations. Patient is not anticoagulated at this time. She did receive Lasix IV twice yesterday, but overall fluid balance is neutral. 3. Hypokalemia Electrolyte repletion is underway. Recheck levels in the morning. 4. 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 This appears to have resolved at this time. 5. Advanced age/neuropathy/hypertension/hyperlipidemia/GERD Complicates care, management, recovery and prognosis. The patient is a documented DNR CCA on file. Physical therapy to continue to work with patient. This note was generated with [employer] dictation software. It may contain incorrect words, spelling, and punctuation that were not noted in checking the note before signing. Code Visit Inpatient E&M: 63066 [facility] L3
--- NOTE | 2017-10-05 07:14 | CPS ---
Pt on 8L high flow nasal cannula
[2017-10-05] MEDS: Aspirin E.C. 81 MG Tablet PO (10:03)
[2017-10-05] MEDS: Carvedilol 25 MG Tablet PO ×2 (10:03→21:39)
[2017-10-05] MEDS: Furosemide 40 MG/4 ML Vial IV ×2 (10:04→17:36)
[2017-10-05] MEDS: amLODIPine 5 MG Tablet PO (10:04)
[2017-10-05] MEDS: guaiFENesin 1,200 MG Tablet 1200 MG PO ×2 (10:04→21:39)
[2017-10-05] MEDS: Magnesium Oxide 400 MG Tablet PO (10:04)
[2017-10-05] MEDS: Famotidine 20 MG Tablet PO ×2 (10:05→21:39)
[2017-10-05] MEDS: Lisinopril 40 MG Tablet PO (10:05)
--- NOTE | 2017-10-05 10:27 | PCM.PN.HOSP ---
Patient Problems: Active and Suspected Problems (Last Updated 06/23/17 @ 17:11 by Too Cote SUPERVISORY CIVIL ENGINEER-C) multilobar HCAP (Acute) Acute respiratory failure with hypoxia (Acute) CHF (congestive heart failure) (Acute) Subjective: Breathing better. Transition from BiPAP over to high flow oxygen. Vitals/I&O's: Vital Signs Temp Pulse Resp BP Pulse Ox 37.4 C H 87 30 H 141/73 H 96 10/05/17 08:00 10/05/17 08:00 10/05/17 08:00 10/05/17 08:00 10/05/17 08:00 Oxygen Flow Rate (L/min) 10 Oxygen Delivery Method Nasal Cannula Weight: 72.9 kg Body Mass Index (BMI) 30.7 Intake and Output for Last 24 Hours 10/03/17 10/04/17 10/05/17 23:59 23:59 23:59 Intake Total 1133.4 / 1133.4 1064 / 1064 66 / 66 Output Total 1625 / 1625 1525 / 1525 125 / 125 Balance -491.6 / -491.6 -461 / -461 -59 / -59 General: Alert, Cooperative, No apparent distress, - - No respiratory distress. No conversational dyspnea. HEENT: Atraumatic, Normocephalic Neck: No JVD, No Nodes, Thyroid Normal Size and Texture Lungs: Diminished, - - Bilateral fine crackles Cardiovascular: Regular rate, Regular Rhythm, Normal S1, Normal S2 Abdomen: Bowel Sounds Present, Soft, Non Tender, Non-Distended, No Hepato-splenomegaly Extremities: No edema, No Calf Tenderness Skin: No rashes, No breakdown Musculoskeletal: No Tenderness to Palpation of Joints or Extremities, No Muscle Wasting Neurological: Neuro grossly intact, Sensory exam intact to light touch and pain Psych/Mental Status: Normal Affect, Appropriate Microbiology Past 72 Hours 10/05/17 05:30 Stool C. difficile DNA Amplification - Final 10/02/17 07:40 Sputum, Expectorated/Coughed Gram Stain - Final 10/02/17 07:40 Sputum, Expectorated/Coughed Respiratory Culture - Final Coag Negative Staph 10/01/17 00:06 Blood Culture (Wb) #2 - Left Hand Blood Culture - Preliminary No growth in 48 hours. 10/01/17 07:00 Urine Catheter - Yang Urine Culture - Final Culture exhibits no growth. Laboratory Results 10/04/17 10:30: WBC 14.2 H, RBC 3.21 L, Hgb 9.6 L, Hct 30.4 L, MCV 94.7, MCH 29.9, MCHC 31.6 L, RDW 14.2, RDW Differential 49.4 H, Plt Count 312, MPV 10.5, Immature Gran % (Auto) 0.200, Neut % (Auto) 84.4 H, Lymph % (Auto) 6.3 L, Kerr % (Auto) 4.2, Eos % (Auto) 4.8, Baso % (Auto) 0.1, Absolute Neuts (auto) 12.0 H, Absolute Lymphs (auto) 0.90, Total Counted Not Reportable 10/05/17 05:10: WBC 12.9 H, RBC 3.31 L, Hgb 10.0 L, Hct 31.8 L, MCV 96.1, MCH 30.2, MCHC 31.4 L, RDW 14.0, RDW Differential 47.2 H, Plt Count 285, MPV 10.5, Immature Gran % (Auto) 0.200, Neut % (Auto) 79.0 H, Lymph % (Auto) 7.7 L, [place] % (Auto) 7.3, Eos % (Auto) 5.7 H, Baso % (Auto) 0.1, Absolute Neuts (auto) 10.2 H, Absolute Lymphs (auto) 0.99, Total Counted Not Reportable 10/05/17 05:10: Sodium 142, Potassium 3.3 L, Chloride 102, Carbon Dioxide 31.0, Anion Gap 9, BUN 20 H, Creatinine 0.57, Estim Creat Clear Calc 37.12, Est GFR (MDRD) Af Amer 132, Est GFR (MDRD) Non-Af 109, BUN/Creatinine Ratio 35.2 H, Glucose 105, Calcium 8.9 Current Medications Acetaminophen (Tylenol) 650 mg PO Q4H PRN PRN PRN Reason: FEVER Last Admin: 10/02/17 21:46 Dose: 650 mg Acetaminophen (Tylenol) 650 mg RECTAL Q6H PRN PRN PRN Reason: temp>101 / Pain Last Admin: 10/04/17 19:46 Dose: 650 mg Albuterol Sulfate (Ventolin Aerosols) 2.5 mg INHALATION Q2H PRN PRN PRN Reason: SHORTNESS OF BREATH Last Admin: 10/02/17 20:26 Dose: 2.5 mg Amlodipine Besylate (Norvasc) 5 mg PO DAILY [facility] Last Admin: 10/05/17 10:04 Dose: 5 mg Aspirin (Ecotrin) 81 mg PO DAILY [facility] Last Admin: 10/05/17 10:03 Dose: 81 mg Atorvastatin Calcium (Lipitor) 20 mg PO QHS [facility] Last Admin: 10/04/17 21:16 Dose: 20 mg Calamine/Phenol (Calmoseptine Ointment) 1 applic TOPICAL BID [facility] PRN Reason: Protocol Last Admin: 10/04/17 21:17 Dose: 1 applicatio Carvedilol (Coreg) 25 mg PO BID [facility] Last Admin: 10/05/17 10:03 Dose: 25 mg Chlorhexidine Gluconate () 1 each TOPICAL DAILY [facility] Last Admin: 10/05/17 05:13 Dose: 1 each Enoxaparin Sodium (Lovenox) 80 mg 1 mg/kg (80 mg) SC Q12@0600,1800 [facility] Last Admin: 10/05/17 05:13 Dose: 80 mg Famotidine (Pepcid) 20 mg PO BID [facility] Last Admin: 10/05/17 10:05 Dose: 20 mg Furosemide (Lasix) 40 mg IV BID@1000,1800 [facility] Last Admin: 10/05/17 10:04 Dose: 40 mg Guaifenesin (Mucinex) 1,200 mg PO BID [facility] Last Admin: 10/05/17 10:04 Dose: 1,200 mg Piperacillin Sod/Tazobactam Sod (Zosyn) 3.375 gm in 50 mls @ 12.5 mls/hr IV Q8 [facility] Last Admin: 10/05/17 05:13 Dose: 12.5 mls/hr Potassium Chloride (Kcl 10meq/100ml) 10 meq in 100 mls @ 100 mls/hr IV BOLUS Q1H [facility] Stop: 10/05/17 14:14 Last Admin: 10/05/17 10:01 Dose: 100 mls/hr Labetalol HCl (Trandate) 10 mg IV Q4H PRN PRN PRN Reason: HR > 120 Last Admin: 10/02/17 23:06 Dose: 10 mg Lisinopril (Zestril) 40 mg PO DAILY [facility] Last Admin: 10/05/17 10:05 Dose: 40 mg Magnesium Oxide (Mag-Ox 400) 400 mg PO DAILY [facility] Last Admin: 10/05/17 10:04 Dose: 400 mg Nitroglycerin (Nitrostat) 0.4 mg SUBLINGUAL Q5M PRN PRN Reason: Chest Pain Nutritional Formula (Lactose Free) (Ensure Enlive) 120 ml PO 4X/DAY [facility] Last Admin: 10/05/17 10:06 Dose: 120 ml Ondansetron HCl (Zofran) 4 mg IV Q8H PRN PRN PRN Reason: NAUSEA Last Admin: 10/03/17 01:08 Dose: 4 mg Senna/Docusate Sodium (Senokot-S, Dilia-Colace) 2 tablet PO BID [facility] Last Admin: 10/05/17 10:05 Dose: Not Given Sodium Chloride () 5 - 30 ml IV UD PRN PRN Reason: SALINE FLUSH Last Admin: 10/04/17 21:17 Dose: 10 ml Tramadol HCl (Ultram) 50 mg PO Q6H PRN PRN PRN Reason: PAIN Medical Necessity - Tobacco Use Smoking Status: Never smoker Assessment/Plan Active and Suspected Problems (Last Updated 06/23/17 @ 17:11 by Too Cote, SUPERVISORY CIVIL ENGINEER-C) multilobar HCAP (Acute) Acute respiratory failure with hypoxia (Acute) CHF (congestive heart failure) (Acute) 1. Acute hypoxic respiratory failure Multifactorial, due to CHF, pneumonia plus minus acute lung injury Improved today and patient is tolerating being off of BiPAP, at least for now. Appreciate input by critical care medicine 2. Suspected gram-negative pneumonia/healthcare acquired pneumonia Sputum culture growing out coag negative staph, which I feel is probably contaminant. Continue with pulmonary toilet Continue with Zosyn 3. Heart failure with preserved ejection fraction Ejection fraction of 70% from left heart catheterization from September 24, 2015 On IV Lasix Continue with lisinopril and carvedilol 4. Atrial fibrillation with RVR Currently rate controlled Off of diltiazem drip. Continue with carvedilol for now. Early on weight-based Lovenox for anticoagulation at this time. 5. Non-STEMI Troponins were as high as 0.216 Suspect demand ischemia and given the patient's respiratory failure, pneumonia and heart failure. Troponin on was down to 0.073. Medical management for now. 6. DVT prophylaxis with anticoagulation. Code Visit Inpatient E&M: 18734 [facility] L3
--- NOTE | 2017-10-05 10:36 | PN_ITS ---
Patient Problems: Active and Suspected Problems (Last Updated 06/23/17 @ 17:11 by Too Cote DRAFTER [employer]ANDSCAPE- C) multilobar HCAP (Acute) Acute respiratory failure with hypoxia (Acute) CHF (congestive heart failure) (Acute) Subjective: Breathing better. Transition from BiPAP over to high flow oxygen. Vitals/I&O's: Vital Signs Temp Pulse Resp BP Pulse Ox 37.4 C H 87 30 H 141/73 H 96 10/05/17 08:00 10/05/17 08:00 10/05/17 08:00 10/05/17 08:00 10/05/17 08:00 Oxygen Flow Rate (L/min) 10 Oxygen Delivery Method Nasal Cannula Weight: 72.9 kg Body Mass Index (BMI) 30.7 Intake and Output for Last 24 Hours 10/03/17 10/04/17 10/05/17 23:59 23:59 23:59 Intake Total 1133.4 / 1133.4 1064 / 1064 66 / 66 Output Total 1625 / 1625 1525 / 1525 125 / 125 Balance -491.6 / -491.6 -461 / -461 -59 / -59 General: Alert, Cooperative, No apparent distress, - - No respiratory distress. No conversational dyspnea. HEENT: Atraumatic, Normocephalic Neck: No JVD, No Nodes, Thyroid Normal Size and Texture Lungs: Diminished, - - Bilateral fine crackles Cardiovascular: Regular rate, Regular Rhythm, Normal S1, Normal S2 Abdomen: Bowel Sounds Present, Soft, Non Tender, Non-Distended, No Hepato- splenomegaly Extremities: No edema, No Calf Tenderness Skin: No rashes, No breakdown Musculoskeletal: No Tenderness to Palpation of Joints or Extremities, No Muscle Wasting Neurological: Neuro grossly intact, Sensory exam intact to light touch and pain Psych/Mental Status: Normal Affect, Appropriate Microbiology Past 72 Hours 10/05/17 05:30 Stool C. difficile DNA Amplification - Final 10/02/17 07:40 Sputum, Expectorated/Coughed Gram Stain - Final 10/02/17 07:40 Sputum, Expectorated/Coughed Respiratory Culture - Final Coag Negative Staph 10/01/17 00:06 Blood Culture (Wb) #2 - Left Hand Blood Culture - Preliminary No growth in 48 hours. 10/01/17 07:00 Urine Catheter - Yang Urine Culture - Final Culture exhibits no growth. Laboratory Results 10/04/17 10:30: WBC 14.2 H, RBC 3.21 L, Hgb 9.6 L, Hct 30.4 L, MCV 94.7, MCH 29.9, MCHC 31.6 L, RDW 14.2, RDW Differential 49.4 H, Plt Count 312, MPV 10.5, Immature Gran % (Auto) 0.200, Neut % (Auto) 84.4 H, Lymph % (Auto) 6.3 L, [place] % (Auto) 4.2, Eos % (Auto) 4.8, Baso % (Auto) 0.1, Absolute Neuts (auto) 12.0 H , Absolute Lymphs (auto) 0.90, Total Counted Not Reportable 10/05/17 05:10: WBC 12.9 H, RBC 3.31 L, Hgb 10.0 L, Hct 31.8 L, MCV 96.1, MCH 30.2, MCHC 31.4 L, RDW 14.0, RDW Differential 47.2 H, Plt Count 285, MPV 10.5, Immature Gran % (Auto) 0.200, Neut % (Auto) 79.0 H, Lymph % (Auto) 7.7 L, [place] % (Auto) 7.3, Eos % (Auto) 5.7 H, Baso % (Auto) 0.1, Absolute Neuts (auto) 10.2 H, Absolute Lymphs (auto) 0.99, Total Counted Not Reportable 10/05/17 05:10: Sodium 142, Potassium 3.3 L, Chloride 102, Carbon Dioxide 31.0, Anion Gap 9, BUN 20 H, Creatinine 0.57, Estim Creat Clear Calc 37.12, Est GFR ( MDRD) Af Amer 132, Est GFR (MDRD) Non-Af 109, BUN/Creatinine Ratio 35.2 H, Glucose 105, Calcium 8.9 Current Medications Acetaminophen (Tylenol) 650 mg PO Q4H PRN PRN PRN Reason: FEVER Last Admin: 10/02/17 21:46 Dose: 650 mg Acetaminophen (Tylenol) 650 mg RECTAL Q6H PRN PRN PRN Reason: temp>101 / Pain Last Admin: 10/04/17 19:46 Dose: 650 mg Albuterol Sulfate (Ventolin Aerosols) 2.5 mg INHALATION Q2H PRN PRN PRN Reason: SHORTNESS OF BREATH Last Admin: 10/02/17 20:26 Dose: 2.5 mg Amlodipine Besylate (Norvasc) 5 mg PO DAILY [facility] Last Admin: 10/05/17 10:04 Dose: 5 mg Aspirin (Ecotrin) 81 mg PO DAILY [facility] Last Admin: 10/05/17 10:03 Dose: 81 mg Atorvastatin Calcium (Lipitor) 20 mg PO QHS [facility] Last Admin: 10/04/17 21:16 Dose: 20 mg Calamine/Phenol (Calmoseptine Ointment) 1 applic TOPICAL BID [facility] PRN Reason: Protocol Last Admin: 10/04/17 21:17 Dose: 1 applicatio Carvedilol (Coreg) 25 mg PO BID [facility] Last Admin: 10/05/17 10:03 Dose: 25 mg Chlorhexidine Gluconate () 1 each TOPICAL DAILY [facility] Last Admin: 10/05/17 05:13 Dose: 1 each Enoxaparin Sodium (Lovenox) 80 mg 1 mg/kg (80 mg) SC Q12@0600,1800 [facility] Last Admin: 10/05/17 05:13 Dose: 80 mg Famotidine (Pepcid) 20 mg PO BID [facility] Last Admin: 10/05/17 10:05 Dose: 20 mg Furosemide (Lasix) 40 mg IV BID@1000,1800 [facility] Last Admin: 10/05/17 10:04 Dose: 40 mg Guaifenesin (Mucinex) 1,200 mg PO BID [facility] Last Admin: 10/05/17 10:04 Dose: 1,200 mg Piperacillin Sod/Tazobactam Sod (Zosyn) 3.375 gm in 50 mls @ 12.5 mls/hr IV Q8 [facility] Last Admin: 10/05/17 05:13 Dose: 12.5 mls/hr Potassium Chloride (Kcl 10meq/100ml) 10 meq in 100 mls @ 100 mls/hr IV BOLUS Q1H [facility] Stop: 10/05/17 14:14 Last Admin: 10/05/17 10:01 Dose: 100 mls/hr Labetalol HCl (Trandate) 10 mg IV Q4H PRN PRN PRN Reason: HR > 120 Last Admin: 10/02/17 23:06 Dose: 10 mg Lisinopril (Zestril) 40 mg PO DAILY [facility] Last Admin: 10/05/17 10:05 Dose: 40 mg Magnesium Oxide (Mag-Ox 400) 400 mg PO DAILY [facility] Last Admin: 10/05/17 10:04 Dose: 400 mg Nitroglycerin (Nitrostat) 0.4 mg SUBLINGUAL Q5M PRN PRN Reason: Chest Pain Nutritional Formula (Lactose Free) (Ensure Enlive) 120 ml PO 4X/DAY [facility] Last Admin: 10/05/17 10:06 Dose: 120 ml Ondansetron HCl (Zofran) 4 mg IV Q8H PRN PRN PRN Reason: NAUSEA Last Admin: 10/03/17 01:08 Dose: 4 mg Senna/Docusate Sodium (Senokot-S, Dilia-Colace) 2 tablet PO BID [facility] Last Admin: 10/05/17 10:05 Dose: Not Given Sodium Chloride () 5 - 30 ml IV UD PRN PRN Reason: SALINE FLUSH Last Admin: 10/04/17 21:17 Dose: 10 ml Tramadol HCl (Ultram) 50 mg PO Q6H PRN PRN PRN Reason: PAIN Medical Necessity - Tobacco Use Smoking Status: Never smoker Assessment/Plan Active and Suspected Problems (Last Updated 06/23/17 @ 17:11 by Too Cote, DRAFTER [employer]SC[employer]- C) multilobar HCAP (Acute) Acute respiratory failure with hypoxia (Acute) CHF (congestive heart failure) (Acute) 1. Acute hypoxic respiratory failure * Multifactorial, due to CHF, pneumonia plus minus acute lung injury * Improved today and patient is tolerating being off of BiPAP, at least for now. * Appreciate input by critical care medicine 2. Suspected gram-negative pneumonia/healthcare acquired pneumonia * Sputum culture growing out coag negative staph, which I feel is probably contaminant. * Continue with pulmonary toilet * Continue with Zosyn 3. Heart failure with preserved ejection fraction * Ejection fraction of 70% from left heart catheterization from September 24, 2015 * On IV Lasix * Continue with lisinopril and carvedilol 4. Atrial fibrillation with RVR * Currently rate controlled * Off of diltiazem drip. * Continue with carvedilol for now. * Early on weight-based Lovenox for anticoagulation at this time. 5. Non-STEMI * Troponins were as high as 0.216 * Suspect demand ischemia and given the patient's respiratory failure, pneumonia and heart failure. * Troponin on was down to 0.073. * Medical management for now. 6. DVT prophylaxis with anticoagulation. Code Visit Inpatient E&M: 70452 Subs Hosp L3
[2017-10-05] MEDS: Menthol/Lanolin/Calamine/Znox 113 GM Tube 1 APPLIC TOPICAL ×2 (11:14→21:36)
--- NOTE | 2017-10-05 13:37 | PCM.PN.CARD ---
Subjectve: The patient is currently without her BiPAP/CPAP device. She is on nasal cannula. She appears to be resting comfortably. She denies any obvious palpitations or chest discomfort. She is chronically short of breath. Objective: Vital Signs Temp Pulse Resp BP Pulse Ox 100.6 F H 95 27 H 142/87 H 95 10/05/17 11:00 10/05/17 11:00 10/05/17 11:00 10/05/17 11:00 10/05/17 11:00 Oxygen Flow Rate (L/min) 8 Oxygen Delivery Method Nasal Cannula Weight: 160 lb 11.472 oz Body Mass Index (BMI) 30.7 Intake and Output for Last 24 Hours 10/03/17 10/04/17 10/05/17 23:59 23:59 23:59 Intake Total 1133.4 / 1133.4 1064 / 1064 66 / 66 Output Total 1625 / 1625 1525 / 1525 125 / 125 Balance -491.6 / -491.6 -461 / -461 -59 / -59 General: Awake, Alert, Oriented x 3, Cooperative, No Acute Distress, Ill Appearing Neck: No JVD Lungs: Rhonchi Cardiovascular: Irregular Rhythm, Normal S1, Normal S2 Murmur Murmur: Grade 2/6, Mid Systolic, LLSB, LVOT, Sternal Notch Abdomen: Bowel Sounds Present, Soft, Non Tender Extremities: No edema 10/05/17 05:10: WBC 12.9 H, RBC 3.31 L, Hgb 10.0 L, Hct 31.8 L, MCV 96.1, MCH 30.2, MCHC 31.4 L, RDW 14.0, RDW Differential 47.2 H, Plt Count 285, MPV 10.5, Immature Gran % (Auto) 0.200, Neut % (Auto) 79.0 H, Lymph % (Auto) 7.7 L, [place] % (Auto) 7.3, Eos % (Auto) 5.7 H, Baso % (Auto) 0.1, Absolute Neuts (auto) 10.2 H, Total Counted Not Reportable 10/05/17 05:10: Sodium 142, Potassium 3.3 L, Chloride 102, Carbon Dioxide 31.0, Anion Gap 9, BUN 20 H, Creatinine 0.57, Est GFR (MDRD) Af Amer 132, Est GFR (MDRD) Non-Af 109, BUN/Creatinine Ratio 35.2 H, Glucose 105, Calcium 8.9 Rhythm: Electronic ventricular paced rhythm; underlying rhythm appearing compatible with atrial fibrillation Medical Necessity - Tobacco Use Smoking Status: Never smoker Assessment/Plan 1. Atrial fibrillation The patient appears to have developed atrial fibrillation. This may be secondary to her underlying pulmonary disease process superimposed upon her underlying chronic cardiovascular disease process. At the present time she is on rate control therapy. Has been successfully weaned from her IV diltiazem. She continues on oral beta-hal therapy. She has not been placed on antiarrhythmic therapy. He has been placed on anticoagulant therapy with Lovenox. She does not require any obvious invasive procedures and if there is no obvious contraindication then she can be transitioned to oral systemic anticoagulant therapy. 2. Paroxysmal ventricular tachycardia She reportedly has a history of paroxysmal ventricular tachycardia. She will continue to be monitored. She will continue medical management with her beta-hal therapy. Additional antiarrhythmic therapy can be used as deemed appropriate. She does have an ICD in place. 3. CHF She does appear to have signs and symptoms compatible with underlying CHF. This may be brought out by her underlying pulmonary disease process superimposed upon her cardiovascular disease process. Overall she appears to improve with her diuresis. Her weight has decreased. She will need to continue medical management. This will include diuretic therapy with electrolyte supplementation. 4. Cardiomyopathy The does have an underlying cardiomyopathy. There are concerns whether this is CAD related, valvular related, or another form of a cardiomyopathy. At the present time she will continue medical management. This will include agents such as nitrates as needed, beta-blockers, diuretics, afterload reducing agents, etc. 5. CAD status post RANDLE to the LAD At the time of her surgery she received a RANDLE to the LAD. She does have an indeterminate troponin. It is unclear as or whether this is a primary acute coronary syndrome event versus more likely being related to a type II event from supply demand mismatch secondary to her underlying acute pulmonary disease process superimposed upon her chronic cardiovascular disease process. At the moment would be reasonable to continue her medical management. She can be reassessed as deemed appropriate. 6. Status post aortic valve replacement-bioprosthetic The patient is status post the aforementioned surgery. She will continue to have her aortic valve monitored by history, exam, and echocardiogram. She will continue [facility] antibiotic prophylaxis. 7. ICD The patient does have an underlying ICD in place. It is a biventricular device. It is a [employer] PERSONNEL QUALITY ASSURANCE AUDITOR-D model # N164 serial #[id number] implanted on 05/20/2012. 8. Hypertension The patient will continue have her blood pressures monitored. She will be reassessed as needed. 9. Hyperlipidemia The patient will continue lipid-lowering therapy as deemed appropriate. 10. Pneumonia The patient will continue evaluation care per internal medicine and pulmonology. Comment: The above was discussed and reviewed with patient. This note was generated with [employer] dictation software. It may contain incorrect words, spelling, and punctuation that were not noted in checking the note before signing.
--- NOTE | 2017-10-05 13:40 | PN.CARD_ITS ---
Subjectve: The patient is currently without her BiPAP/CPAP device. She is on nasal cannula. She appears to be resting comfortably. She denies any obvious palpitations or chest discomfort. She is chronically short of breath. Objective: Vital Signs Temp Pulse Resp BP Pulse Ox 100.6 F H 95 27 H 142/87 H 95 10/05/17 11:00 10/05/17 11:00 10/05/17 11:00 10/05/17 11:00 10/05/17 11:00 Oxygen Flow Rate (L/min) 8 Oxygen Delivery Method Nasal Cannula Weight: 160 lb 11.472 oz Body Mass Index (BMI) 30.7 Intake and Output for Last 24 Hours 10/03/17 10/04/17 10/05/17 23:59 23:59 23:59 Intake Total 1133.4 / 1133.4 1064 / 1064 66 / 66 Output Total 1625 / 1625 1525 / 1525 125 / 125 Balance -491.6 / -491.6 -461 / -461 -59 / -59 General: Awake, Alert, Oriented x 3, Cooperative, No Acute Distress, Ill Appearing Neck: No JVD Lungs: Rhonchi Cardiovascular: Irregular Rhythm, Normal S1, Normal S2 Murmur Murmur: Grade 2/6, Mid Systolic, LLSB, LVOT, Sternal Notch Abdomen: Bowel Sounds Present, Soft, Non Tender Extremities: No edema 10/05/17 05:10: WBC 12.9 H, RBC 3.31 L, Hgb 10.0 L, Hct 31.8 L, MCV 96.1, MCH 30.2, MCHC 31.4 L, RDW 14.0, RDW Differential 47.2 H, Plt Count 285, MPV 10.5, Immature Gran % (Auto) 0.200, Neut % (Auto) 79.0 H, Lymph % (Auto) 7.7 L, [place] % (Auto) 7.3, Eos % (Auto) 5.7 H, Baso % (Auto) 0.1, Absolute Neuts (auto) 10.2 H, Total Counted Not Reportable 10/05/17 05:10: Sodium 142, Potassium 3.3 L, Chloride 102, Carbon Dioxide 31.0, Anion Gap 9, BUN 20 H, Creatinine 0.57, Est GFR (MDRD) Af Amer 132, Est GFR ( MDRD) Non-Af 109, BUN/Creatinine Ratio 35.2 H, Glucose 105, Calcium 8.9 Rhythm: Electronic ventricular paced rhythm; underlying rhythm appearing compatible with atrial fibrillation Medical Necessity - Tobacco Use Smoking Status: Never smoker Assessment/Plan 1. Atrial fibrillation The patient appears to have developed atrial fibrillation. This may be secondary to her underlying pulmonary disease process superimposed upon her underlying chronic cardiovascular disease process. At the present time she is on rate control therapy. Has been successfully weaned from her IV diltiazem. She continues on oral beta-hal therapy. She has not been placed on antiarrhythmic therapy. He has been placed on anticoagulant therapy with Lovenox. She does not require any obvious invasive procedures and if there is no obvious contraindication then she can be transitioned to oral systemic anticoagulant therapy. 2. Paroxysmal ventricular tachycardia She reportedly has a history of paroxysmal ventricular tachycardia. She will continue to be monitored. She will continue medical management with her beta- hal therapy. Additional antiarrhythmic therapy can be used as deemed appropriate. She does have an ICD in place. 3. CHF She does appear to have signs and symptoms compatible with underlying CHF. This may be brought out by her underlying pulmonary disease process superimposed upon her cardiovascular disease process. Overall she appears to improve with her diuresis. Her weight has decreased. She will need to continue medical management. This will include diuretic therapy with electrolyte supplementation. 4. Cardiomyopathy The does have an underlying cardiomyopathy. There are concerns whether this is CAD related, valvular related, or another form of a cardiomyopathy. At the present time she will continue medical management. This will include agents such as nitrates as needed, beta-blockers, diuretics, afterload reducing agents, etc. 5. CAD status post RANDLE to the LAD At the time of her surgery she received a RANDLE to the LAD. She does have an indeterminate troponin. It is unclear as or whether this is a primary acute coronary syndrome event versus more likely being related to a type II event from supply demand mismatch secondary to her underlying acute pulmonary disease process superimposed upon her chronic cardiovascular disease process. At the moment would be reasonable to continue her medical management. She can be reassessed as deemed appropriate. 6. Status post aortic valve replacement-bioprosthetic The patient is status post the aforementioned surgery. She will continue to have her aortic valve monitored by history, exam, and echocardiogram. She will continue [facility] antibiotic prophylaxis. 7. ICD The patient does have an underlying ICD in place. It is a biventricular device. It is a [employer] CONE MACHINE OPERATOR-D model # N164 serial #[id number] implanted on 05/20/2012. 8. Hypertension The patient will continue have her blood pressures monitored. She will be reassessed as needed. 9. Hyperlipidemia The patient will continue lipid-lowering therapy as deemed appropriate. 10. Pneumonia The patient will continue evaluation care per internal medicine and pulmonology. Comment: The above was discussed and reviewed with patient. This note was generated with [employer] dictation software. It may contain incorrect words, spelling, and punctuation that were not noted in checking the note before signing.
[2017-10-05] MEDS: Acetaminophen 325 MG Tablet 650 MG PO (14:27)
[2017-10-05] MEDS: 0.9% NaCl Peripheral Flush Adult/Peds IV (17:37)
[2017-10-05] MEDS: traMADol 50 MG Tablet PO (19:19)
--- NOTE | 2017-10-05 20:38 | NURSING ---
Dressing to left hip saturated with serous drainage. Dr. Garcia Ortho on called updated. Ok to change dressing. Incision well approximated, no redness or inflammation noted. Area cleaned with CHG soap and sterile saline. New mepilex AG applied.
[2017-10-05] MEDS: Atorvastatin Calcium 20 MG Tablet PO (21:39)
[2017-10-06] VITALS (33 sets, daily range): BP systolic 91–168; BP diastolic 54–98; PULSE 74–97; RESP 12–34; TEMP 37.1–38.5; O2SAT 88–99
[2017-10-06 05:35] LABS: Hematocrit 31.2 % (37-47); Hemoglobin 9.7 g/dl (12.0-15.0); Mean Corp Hgb Conc 31.1 g/gl (32-36); Mean Corpuscular Hgb 29.3 pg (27.0-32.0); Mean Corpuscular Volume 94.3 fL (81-99); Mean Platelet Vol. 10.4 fl (6.2-12.0); Platelet Count 360 K/mm3 (150-450); RBC Distribution Width CV 14.2 % (11.6-14.6); RBC Distribution Width SD 48.8 fl (35.1-43.9); Red Blood Count 3.31 M/mm3 (4.2-5.4); White Blood Count 14.5 K/mm3 (4.4-11.0)
[2017-10-06] MEDS: CHLORHEXIDINE GLUC 2% CLOTH 1 EACH TOWELETTE TOPICAL (05:42)
[2017-10-06 05:43] LABS: Anion Gap 10 (5-15); BUN 24 mg/dL (7-18); BUN/Creat Ratio 37.9 RATIO (10-20); Calcium,Total 8.7 mg/dL (8.5-10.1); Chloride 100 mmol/L (98-107); Creatinine, Serum 0.63 mg/dL (0.55-1.02); EST Glomerular Filtration Rate 96 mL/min (>60); Est Glom Filt Rate - Afr Amer 116 mL/min (>60); Estimated Creatinine Clearance 37.12 ml/min; Glucose 119 mg/dL (74-106); Magnesium 2.6 mg/dL (1.6-2.6); Potassium 4.1 mmol/L (3.5-5.1); Sodium Level 139 mmol/L (136-145)
[2017-10-06] MEDS: Piperacil/Tazobactam 3.375 GM/50 ML ML IV ×3 (05:43→21:27)
[2017-10-06] MEDS: Menthol/Lanolin/Calamine/Znox 113 GM Tube 1 APPLIC TOPICAL ×2 (05:43→21:28)
[2017-10-06] MEDS: Enoxaparin 80 MG/0.8 ML Syringe SC ×2 (05:43→17:54)
[2017-10-06 06:13] LABS: Scan Indicated on CBC? Y/N NO
--- NOTE | 2017-10-06 06:21 | RAD_ITS ---
STUDY: X-RAY CHEST REASON FOR EXAM: Female, 82 years old. Shortness of breath. TECHNIQUE: Single AP portable view of the chest. COMPARISON: Comparison is made with prior study dated October 03, 2017. FINDINGS: EKG electrodes are seen. Once again, there is evidence of bilateral infiltrates worse in the right hemithorax. Since prior study, there has been a mild degree of improvement. Further follow-up is recommended. Stable blunting of the right costophrenic angle. Sternal cerclage wires are present from a prior sternotomy. A left-sided ICD is seen. Normal mediastinum and kathy. Normal visualized pulmonary arteries. There is atherosclerotic calcification of the aortic arch with tortuosity. There are diffuse degenerative changes of the visualized thoracic spine. Normal visualized ribs, clavicles, and shoulders. There is no demonstrated abnormality of the visualized soft tissue structures of the upper abdomen. RAD/Chest 1 View (Portable) IMPRESSION: Persistent bilateral infiltrates worse on the right side. There has been mild improvement as compared to prior study. Further follow-up is recommended. Electronically Signed: Reggie Castillo MD at 8:18 EDT Tel [phone], Service support ,
--- NOTE | 2017-10-06 06:27 | PN_ITS ---
Subjective: Patient did okay overnight. Nursing is reporting patient with marginal saturations on 6 L/min overnight. Patient has tolerated BiPAP well. Patient does report continued diarrhea. No chest pain is reported at this time. General: Alert, Cooperative, No apparent distress, - - Extremely hard of hearing. Good BiPAP synchrony noted. HEENT: Atraumatic, PERRLA, EOMI, Normocephalic, - - No scleral icterus or injection noted. Oral: Moist Mucosa, No Gingival or Mucosal Lesions/ Ulcerations Neck: Supple, No JVD, No Nodes, Trachea Midline Lungs: No rhonchi, No rales, Diminished, Wheezes - Sporadic Cardiovascular: Normal S1, Normal S2, No murmurs, Irregular Rate, No rub noted, No Gallop Abdomen: Soft, Non Tender, Non-Distended, Hyperactive Bowel Sounds Extremities: No clubbing, No cyanosis, No edema, Capillary Refill Less than 3 Seconds Skin: - - Vaginal and perineal irritation noted Musculoskeletal: No Tenderness to Palpation of Joints or Extremities, No Muscle Wasting Lymphatic: No Cervical, Supraclavicular, or Inguinal Adenopathy Neurological: Cranial nerves II-XII grossly intact, Neuro grossly intact, Motor Exam 5/5 strength throughout Psych/Mental Status: Normal Affect, Appropriate Vital Signs Temp Pulse Resp BP Pulse Ox 38.0 C H 87 30 H 128/76 H 97 10/06/17 06:00 10/06/17 06:00 10/06/17 06:00 10/06/17 06:00 10/06/17 06:00 Oxygen Flow Rate (L/min) 6 Oxygen Delivery Method Bi-pap Weight: 72.5 kg Body Mass Index (BMI) 30.7 Intake and Output for Last 24 Hours 10/04/17 10/05/17 10/06/17 23:59 23:59 23:59 Intake Total 1064 / 1064 1531 / 1531 486.4 / 486.4 Output Total 1525 / 1525 1025 / 1025 500 / 500 Balance -461 / -461 506 / 506 -13.6 / -13.6 Labs (Last 48 Hours) 10/04/17 10/05/17 10/05/17 10:30 05:10 05:10 WBC 14.2 H 12.9 H RBC 3.21 L 3.31 L Hgb 9.6 L 10.0 L Hct 30.4 L 31.8 L MCV 94.7 96.1 MCH 29.9 30.2 MCHC 31.6 L 31.4 L RDW 14.2 14.0 RDW Differential 49.4 H 47.2 H Plt Count 312 285 MPV 10.5 10.5 Immature Gran % (Auto) 0.200 0.200 Neut % (Auto) 84.4 H 79.0 H Lymph % (Auto) 6.3 L 7.7 L [place] % (Auto) 4.2 7.3 Eos % (Auto) 4.8 5.7 H Baso % (Auto) 0.1 0.1 Absolute Neuts (auto) 12.0 H 10.2 H Absolute Lymphs (auto) 0.90 0.99 Total Counted Not Reportable Not Reportable Sodium 142 Potassium 3.3 L Chloride 102 Carbon Dioxide 31.0 Anion Gap 9 BUN 20 H Creatinine 0.57 Estim Creat Clear Calc 37.12 Est GFR (MDRD) Af Amer 132 Est GFR (MDRD) Non-Af 109 BUN/Creatinine Ratio 35.2 H Glucose 105 Calcium 8.9 Magnesium 10/06/17 10/06/17 05:00 05:00 WBC 14.5 H RBC 3.31 L Hgb 9.7 L Hct 31.2 L MCV 94.3 MCH 29.3 MCHC 31.1 L RDW 14.2 RDW Differential 48.8 H Plt Count 360 MPV 10.4 Immature Gran % (Auto) Neut % (Auto) Lymph % (Auto) [place] % (Auto) Eos % (Auto) Baso % (Auto) Absolute Neuts (auto) Absolute Lymphs (auto) Total Counted Sodium 139 Potassium 4.1 Chloride 100 Carbon Dioxide 29.0 Anion Gap 10 BUN 24 H Creatinine 0.63 Estim Creat Clear Calc 37.12 Est GFR (MDRD) Af Amer 116 Est GFR (MDRD) Non-Af 96 BUN/Creatinine Ratio 37.9 H Glucose 119 H Calcium 8.7 Magnesium 2.6 Microbiology 10/05/17 05:30 Stool C. difficile DNA Amplification - Final 10/02/17 07:40 Sputum, Expectorated/Coughed Gram Stain - Final 10/02/17 07:40 Sputum, Expectorated/Coughed Respiratory Culture - Final Coag Negative Staph Medical Necessity - Tobacco Use Smoking Status: Never smoker Assessment/Plan Active and Suspected Problems (Last Updated 06/23/17 @ 17:11 by Too Cote, BOWSTRING MAKER- C) multilobar HCAP (Acute) Acute respiratory failure with hypoxia (Acute) CHF (congestive heart failure) (Acute) RECOMMENDATIONS: 1. Continue antibiotics for now 2. Continue intermittent BiPAP, with breaks as tolerated. Goal to maintain oxygen saturations at or above 90%. 3. Continue gentle diuresis with IV Lasix. 4. Rate/rhythm control per cardiology recommendations 5. Encourage incentive spirometer use and mobilize patient as tolerated. IMPRESSIONS: 1. Acute hypoxemic respiratory failure, likely secondary to healthcare associated pneumonia Patient is still having fevers despite IV antibiotics. Diarrhea has continued, but C. difficile was negative yesterday. Will repeat chest x-ray given patient's continued high oxygen requirements. Continue with aggressive pulmonary toileting. Wean oxygen as tolerated. Await cardiology recommendations, but patient may benefit from some increased diuretic therapy. 2. Atrial fibrillation with RVR/Personal history of coronary artery disease status post CABG/aortic valve disease status post replacement/ICD in situ Continue rate/rhythm control therapy per cardiology recommendations. Patient is not anticoagulated at this time. She did receive Lasix IV twice yesterday, but overall fluid balance is neutral. 3. Hypokalemia Repleted. Recheck levels in the morning. 4. 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 This appears to have resolved at this time. 5. Advanced age/neuropathy/hypertension/hyperlipidemia/GERD Complicates care, management, recovery and prognosis. The patient is a documented DNR CCA on file. Physical therapy to continue to work with patient. This note was generated with [employer] dictation software. It may contain incorrect words, spelling, and punctuation that were not noted in checking the note before signing. Code Visit Inpatient E&M: 18365 Subs Hosp L3
--- NOTE | 2017-10-06 09:40 | CASEMGMT ---
SW spoke w/Bharti in TCU, confirmed they still have a bed for pt when ready. SW will continue to follow for discharge to TCU when ready. SHARLENE Perez, MAT CLEANING MACHINE OPERATOR
[2017-10-06] MEDS: Aspirin E.C. 81 MG Tablet PO (09:55)
[2017-10-06] MEDS: Lisinopril 40 MG Tablet PO (09:55)
[2017-10-06] MEDS: Famotidine 20 MG Tablet PO ×2 (09:55→21:27)
[2017-10-06] MEDS: Magnesium Oxide 400 MG Tablet PO (09:55)
[2017-10-06] MEDS: guaiFENesin 1,200 MG Tablet 1200 MG PO ×2 (09:55→21:27)
[2017-10-06] MEDS: amLODIPine 5 MG Tablet PO (09:56)
[2017-10-06] MEDS: Carvedilol 25 MG Tablet PO ×2 (09:56→21:28)
[2017-10-06] MEDS: Furosemide 40 MG/4 ML Vial IV ×2 (09:57→17:54)
--- NOTE | 2017-10-06 13:36 | PCM.PN.HOSP ---
Patient Problems: Active and Suspected Problems (Last Updated 06/23/17 @ 17:11 by Too Cote HAY RAKE OPERATOR-C) multilobar HCAP (Acute) Acute respiratory failure with hypoxia (Acute) CHF (congestive heart failure) (Acute) Subjective: weaned down to nasal cannula. no shortness of breath. no chest pain. Vitals/I&O's: Vital Signs Temp Pulse Resp BP Pulse Ox 37.8 C H 84 30 H 105/76 89 10/06/17 13:00 10/06/17 13:00 10/06/17 13:00 10/06/17 13:00 10/06/17 13:00 Oxygen Flow Rate (L/min) 30 Oxygen Delivery Method Bi-pap Weight: 72.5 kg Body Mass Index (BMI) 30.7 Intake and Output for Last 24 Hours 10/04/17 10/05/17 10/06/17 23:59 23:59 23:59 Intake Total 1064 / 1064 1531 / 1531 726.4 / 726.4 Output Total 1525 / 1525 1025 / 1025 650 / 650 Balance -461 / -461 506 / 506 76.4 / 76.4 General: Alert, Cooperative, No apparent distress HEENT: Atraumatic, Normocephalic Neck: No Nodes, Thyroid Normal Size and Texture Lungs: Diminished, - - bilateral crackles. Cardiovascular: Regular rate, Regular Rhythm, Normal S1, Normal S2 Abdomen: Bowel Sounds Present, Soft, Non Tender, Non-Distended, No Hepato-splenomegaly Extremities: No edema, No Calf Tenderness Skin: No rashes, No breakdown Musculoskeletal: No Tenderness to Palpation of Joints or Extremities, No Muscle Wasting Psych/Mental Status: Normal Affect, Appropriate Microbiology Past 72 Hours 10/01/17 00:06 Blood Culture (Wb) #2 - Left Hand Blood Culture - Final No growth in 5 days. 10/05/17 05:30 Stool C. difficile DNA Amplification - Final 10/02/17 07:40 Sputum, Expectorated/Coughed Gram Stain - Final 10/02/17 07:40 Sputum, Expectorated/Coughed Respiratory Culture - Final Coag Negative Staph Laboratory Results 10/06/17 05:00: WBC 14.5 H, RBC 3.31 L, Hgb 9.7 L, Hct 31.2 L, MCV 94.3, MCH 29.3, MCHC 31.1 L, RDW 14.2, RDW Differential 48.8 H, Plt Count 360, MPV 10.4 10/06/17 05:00: Sodium 139, Potassium 4.1, Chloride 100, Carbon Dioxide 29.0, Anion Gap 10, BUN 24 H, Creatinine 0.63, Estim Creat Clear Calc 37.12, Est GFR (MDRD) Af Amer 116, Est GFR (MDRD) Non-Af 96, BUN/Creatinine Ratio 37.9 H, Glucose 119 H, Calcium 8.7, Magnesium 2.6 Current Medications Acetaminophen (Tylenol) 650 mg PO Q4H PRN PRN PRN Reason: FEVER Last Admin: 10/05/17 14:27 Dose: 650 mg Acetaminophen (Tylenol) 650 mg RECTAL Q6H PRN PRN PRN Reason: temp>101 / Pain Last Admin: 10/04/17 19:46 Dose: 650 mg Albuterol Sulfate (Ventolin Aerosols) 2.5 mg INHALATION Q2H PRN PRN PRN Reason: SHORTNESS OF BREATH Last Admin: 10/02/17 20:26 Dose: 2.5 mg Amlodipine Besylate (Norvasc) 5 mg PO DAILY [facility] Last Admin: 10/06/17 09:56 Dose: 5 mg Aspirin (Ecotrin) 81 mg PO DAILY [facility] Last Admin: 10/06/17 09:55 Dose: 81 mg Atorvastatin Calcium (Lipitor) 20 mg PO QHS [facility] Last Admin: 10/05/17 21:39 Dose: 20 mg Calamine/Phenol (Calmoseptine Ointment) 1 applic TOPICAL BID [facility] PRN Reason: Protocol Last Admin: 10/06/17 05:43 Dose: 1 applicatio Carvedilol (Coreg) 25 mg PO BID [facility] Last Admin: 10/06/17 09:56 Dose: 25 mg Chlorhexidine Gluconate () 1 each TOPICAL DAILY [facility] Last Admin: 10/06/17 05:42 Dose: 1 each Enoxaparin Sodium (Lovenox) 80 mg 1 mg/kg (80 mg) SC Q12@0600,1800 [facility] Last Admin: 10/06/17 05:43 Dose: 80 mg Famotidine (Pepcid) 20 mg PO BID [facility] Last Admin: 10/06/17 09:55 Dose: 20 mg Furosemide (Lasix) 40 mg IV BID@1000,1800 [facility] Last Admin: 10/06/17 09:57 Dose: 40 mg Guaifenesin (Mucinex) 1,200 mg PO BID [facility] Last Admin: 10/06/17 09:55 Dose: 1,200 mg Piperacillin Sod/Tazobactam Sod (Zosyn) 3.375 gm in 50 mls @ 12.5 mls/hr IV Q8 [facility] Last Admin: 10/06/17 13:10 Dose: 12.5 mls/hr Labetalol HCl (Trandate) 10 mg IV Q4H PRN PRN PRN Reason: HR > 120 Last Admin: 10/02/17 23:06 Dose: 10 mg Lisinopril (Zestril) 40 mg PO DAILY [facility] Last Admin: 10/06/17 09:55 Dose: 40 mg Magnesium Oxide (Mag-Ox 400) 400 mg PO DAILY [facility] Last Admin: 10/06/17 09:55 Dose: 400 mg Nitroglycerin (Nitrostat) 0.4 mg SUBLINGUAL Q5M PRN PRN Reason: Chest Pain Nutritional Formula (Lactose Free) (Ensure Enlive) 120 ml PO 4X/DAY [facility] Last Admin: 10/06/17 13:10 Dose: Not Given Ondansetron HCl (Zofran) 4 mg IV Q8H PRN PRN PRN Reason: NAUSEA Last Admin: 10/03/17 01:08 Dose: 4 mg Senna/Docusate Sodium (Senokot-S, Dilia-Colace) 2 tablet PO BID [facility] Last Admin: 10/06/17 09:57 Dose: Not Given Sodium Chloride () 5 - 30 ml IV UD PRN PRN Reason: SALINE FLUSH Last Admin: 10/05/17 17:37 Dose: 10 ml Tramadol HCl (Ultram) 50 mg PO Q6H PRN PRN PRN Reason: PAIN Last Admin: 10/05/17 19:19 Dose: 50 mg Medical Necessity - Tobacco Use Smoking Status: Never smoker Assessment/Plan Active and Suspected Problems (Last Updated 06/23/17 @ 17:11 by Too Cote HAY RAKE OPERATOR-C) multilobar HCAP (Acute) Acute respiratory failure with hypoxia (Acute) CHF (congestive heart failure) (Acute) 1. Acute hypoxic respiratory failure Multifactorial, due to CHF, pneumonia plus minus acute lung injury Improved today and patient is tolerating being off of BiPAP, at least for now. Appreciate input by critical care medicine CXR improving tolerating nasal cannula at this time. 2. Suspected gram-negative pneumonia/healthcare acquired pneumonia Sputum culture growing out coag negative staph, which I feel is probably contaminant. Continue with pulmonary toilet Continue with Zosyn still with temps up to 38c (Cdiff negative) 3. Heart failure with preserved ejection fraction Ejection fraction of 70% from left heart catheterization from September 24, 2015 On IV Lasix Continue with lisinopril and carvedilol 4. Atrial fibrillation with RVR Currently rate controlled Off of diltiazem drip. Continue with carvedilol for now. Early on weight-based Lovenox for anticoagulation at this time. check echo, if no significant valvular abnormality, start OC (NOACs > coumadin) 5. Non-STEMI Troponins were as high as 0.216 Suspect demand ischemia and given the patient's respiratory failure, pneumonia and heart failure. Troponin on was down to 0.073. Medical management for now. On ASA, coreg, lisinopril, statin 6. DVT prophylaxis with anticoagulation. Code Visit Inpatient E&M: 48013 Subs Hosp L2
--- NOTE | 2017-10-06 13:41 | ECHOD_ITS ---
Reason For Study: Afib, Aflutter Procedure This was a 2D Doppler, Color Flow transthoracic echocardiogram. The study was technically difficult. Exam performed portable in ICU/CCU. Left Ventricle Normal LV size. Left ventricular systolic function is normal. The estimated ejection fraction is 55 %. No regional wall motion abnormalities noted. Right Ventricle Mildly dilated right ventricle. ICD or pacer leads identified within the right ventricle. Mild global right ventricular systolic dysfunction. Atria The left atrium is moderately enlarged. The right atrium is mildly enlarged. No doppler evidence for ASD. Mitral Valve There is mild mitral annular calcification. Mild diffuse mitral valve thickening. Mild (1+) mitral valve insufficiency. Tricuspid Valve Normal tricuspid valve. Moderate (2+) tricuspid valve insufficiency. Right ventricular systolic pressure estimated to be 66 mmHg. Aortic Valve Stable appearing bioprosthetic aortic valve apparatus. Pulmonic Valve The pulmonic valve is not well visualized. Mild (1+) pulmonic valve insufficiency. Great Vessels Normal sized aortic root. Pericardium/Pleural No pericardial effusion. MMode/2D Measurements & Calculations LVIDd: 3.4 cm IVSd: 1.2 cm LVOT diam: 1.6 cm LVIDs: 2.5 cm LVPWd: 1.3 cm LVOT area: 2.1 cm2 FS: 27.3 % Ao root diam: 2.2 cm LAV(MOD-bp): 72.0 ml LA A4 area: 22.5 cm2 LA dimension: 4.9 cm LAV(MOD-bp) Indexed: 41.1 ml/m2 LAV(MOD-sp2): 72.4 ml LAV(MOD-sp4): 62.1 ml RA A4 area: 17.1 cm2 Doppler Measurements & Calculations MV E max kai: 134.4 cm/sec Lat Peak E' Kai: 6.5 cm/sec Med Peak E' Kai: 6.4 cm/sec MV A max kai: 30.8 cm/sec E/E' lat: 20.6 E/E' med: 21.0 MV E/A: 4.4 Ao V2 max: 225.0 cm/sec LV V1 max: 117.6 cm/sec SV(LVOT): 38.3 ml Ao max P.7 mmHg LV V1 max P.5 mmHg Ao V2 mean: 147.7 cm/sec LV V1 mean P.5 mmHg Ao mean P.1 mmHg LV V1 mean: 73.9 cm/sec Ao V2 VTI: 36.4 cm LV V1 VTI: 18.2 cm EDGARDO(I,D): 1.1 cm2 EDGARDO(V,D): 1.1 cm2 PA V2 max: 120.2 cm/sec PI end-d kai: 134.3 cm/sec TR max kai: 379.9 cm/sec TR max P.7 mmHg Interpretation Summary The study was technically difficult. Left ventricular systolic function is normal. The estimated ejection fraction is 55 %. Mildly dilated right ventricle. Mild global right ventricular systolic dysfunction. The left atrium is moderately enlarged. The right atrium is mildly enlarged. There is mild mitral annular calcification. Mild diffuse mitral valve thickening. Mild (1+) mitral valve insufficiency. Moderate (2+) tricuspid valve insufficiency. Stable appearing bioprosthetic aortic valve apparatus. Mild (1+) pulmonic valve insufficiency. Right ventricular systolic pressure estimated to be 66 mmHg. Transmitral diastolic flow velocities suggest diastolic dysfunction (pseudonormal pattern). Ordering Physician: Bijan Agustin Referring Physician: Bijan Austin Performed By: Kaur Cote, HERBERT, RVT
--- NOTE | 2017-10-06 13:43 | PN_ITS ---
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 no shortness of breath. no chest pain. Vitals/I&O's: Vital Signs Temp Pulse Resp BP Pulse Ox 37.8 C H 84 30 H 105/76 89 10/06/17 13:00 10/06/17 13:00 10/06/17 13:00 10/06/17 13:00 10/06/17 13:00 Oxygen Flow Rate (L/min) 30 Oxygen Delivery Method Bi-pap Weight: 72.5 kg Body Mass Index (BMI) 30.7 Intake and Output for Last 24 Hours 10/04/17 10/05/17 10/06/17 23:59 23:59 23:59 Intake Total 1064 / 1064 1531 / 1531 726.4 / 726.4 Output Total 1525 / 1525 1025 / 1025 650 / 650 Balance -461 / -461 506 / 506 76.4 / 76.4 General: Alert, Cooperative, No apparent distress HEENT: Atraumatic, Normocephalic Neck: No Nodes, Thyroid Normal Size and Texture Lungs: Diminished, - - bilateral crackles. Cardiovascular: Regular rate, Regular Rhythm, Normal S1, Normal S2 Abdomen: Bowel Sounds Present, Soft, Non Tender, Non-Distended, No Hepato- splenomegaly Extremities: No edema, No Calf Tenderness Skin: No rashes, No breakdown Musculoskeletal: No Tenderness to Palpation of Joints or Extremities, No Muscle Wasting Psych/Mental Status: Normal Affect, Appropriate Microbiology Past 72 Hours 10/01/17 00:06 Blood Culture (Wb) #2 - Left Hand Blood Culture - Final No growth in 5 days. 10/05/17 05:30 Stool C. difficile DNA Amplification - Final 10/02/17 07:40 Sputum, Expectorated/Coughed Gram Stain - Final 10/02/17 07:40 Sputum, Expectorated/Coughed Respiratory Culture - Final Coag Negative Staph Laboratory Results 10/06/17 05:00: WBC 14.5 H, RBC 3.31 L, Hgb 9.7 L, Hct 31.2 L, MCV 94.3, MCH 29.3, MCHC 31.1 L, RDW 14.2, RDW Differential 48.8 H, Plt Count 360, MPV 10.4 10/06/17 05:00: Sodium 139, Potassium 4.1, Chloride 100, Carbon Dioxide 29.0, Anion Gap 10, BUN 24 H, Creatinine 0.63, Estim Creat Clear Calc 37.12, Est GFR ( MDRD) Af Amer 116, Est GFR (MDRD) Non-Af 96, BUN/Creatinine Ratio 37.9 H, Glucose 119 H, Calcium 8.7, Magnesium 2.6 Current Medications Acetaminophen (Tylenol) 650 mg PO Q4H PRN PRN PRN Reason: FEVER Last Admin: 10/05/17 14:27 Dose: 650 mg Acetaminophen (Tylenol) 650 mg RECTAL Q6H PRN PRN PRN Reason: temp>101 / Pain Last Admin: 10/04/17 19:46 Dose: 650 mg Albuterol Sulfate (Ventolin Aerosols) 2.5 mg INHALATION Q2H PRN PRN PRN Reason: SHORTNESS OF BREATH Last Admin: 10/02/17 20:26 Dose: 2.5 mg Amlodipine Besylate (Norvasc) 5 mg PO DAILY [facility] Last Admin: 10/06/17 09:56 Dose: 5 mg Aspirin (Ecotrin) 81 mg PO DAILY [facility] Last Admin: 10/06/17 09:55 Dose: 81 mg Atorvastatin Calcium (Lipitor) 20 mg PO QHS [facility] Last Admin: 10/05/17 21:39 Dose: 20 mg Calamine/Phenol (Calmoseptine Ointment) 1 applic TOPICAL BID [facility] PRN Reason: Protocol Last Admin: 10/06/17 05:43 Dose: 1 applicatio Carvedilol (Coreg) 25 mg PO BID [facility] Last Admin: 10/06/17 09:56 Dose: 25 mg Chlorhexidine Gluconate () 1 each TOPICAL DAILY [facility] Last Admin: 10/06/17 05:42 Dose: 1 each Enoxaparin Sodium (Lovenox) 80 mg 1 mg/kg (80 mg) SC Q12@0600,1800 [facility] Last Admin: 10/06/17 05:43 Dose: 80 mg Famotidine (Pepcid) 20 mg PO BID [facility] Last Admin: 10/06/17 09:55 Dose: 20 mg Furosemide (Lasix) 40 mg IV BID@1000,1800 [facility] Last Admin: 10/06/17 09:57 Dose: 40 mg Guaifenesin (Mucinex) 1,200 mg PO BID [facility] Last Admin: 10/06/17 09:55 Dose: 1,200 mg Piperacillin Sod/Tazobactam Sod (Zosyn) 3.375 gm in 50 mls @ 12.5 mls/hr IV Q8 [facility] Last Admin: 10/06/17 13:10 Dose: 12.5 mls/hr Labetalol HCl (Trandate) 10 mg IV Q4H PRN PRN PRN Reason: HR > 120 Last Admin: 10/02/17 23:06 Dose: 10 mg Lisinopril (Zestril) 40 mg PO DAILY [facility] Last Admin: 10/06/17 09:55 Dose: 40 mg Magnesium Oxide (Mag-Ox 400) 400 mg PO DAILY [facility] Last Admin: 10/06/17 09:55 Dose: 400 mg Nitroglycerin (Nitrostat) 0.4 mg SUBLINGUAL Q5M PRN PRN Reason: Chest Pain Nutritional Formula (Lactose Free) (Ensure Enlive) 120 ml PO 4X/DAY [facility] Last Admin: 10/06/17 13:10 Dose: Not Given Ondansetron HCl (Zofran) 4 mg IV Q8H PRN PRN PRN Reason: NAUSEA Last Admin: 10/03/17 01:08 Dose: 4 mg Senna/Docusate Sodium (Senokot-S, Dilia-Colace) 2 tablet PO BID [facility] Last Admin: 10/06/17 09:57 Dose: Not Given Sodium Chloride () 5 - 30 ml IV UD PRN PRN Reason: SALINE FLUSH Last Admin: 10/05/17 17:37 Dose: 10 ml Tramadol HCl (Ultram) 50 mg PO Q6H PRN PRN PRN Reason: PAIN Last Admin: 10/05/17 19:19 Dose: 50 mg Medical Necessity - Tobacco Use Smoking Status: Never smoker Assessment/Plan Active and Suspected Problems (Last Updated 06/23/17 @ 17:11 by Too Cote VENDING MACHINE 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 Acute hypoxic respiratory failure * Multifactorial, due to CHF, pneumonia plus minus acute lung injury * Improved today and patient is tolerating being off of BiPAP, at least for now. * Appreciate input by critical care medicine * CXR improving * tolerating nasal cannula at this time. 2. Suspected gram-negative pneumonia/healthcare acquired pneumonia * Sputum culture growing out coag negative staph, which I feel is probably contaminant. * Continue with pulmonary toilet * Continue with Zosyn * still with temps up to 38c (Cdiff negative) 3. Heart failure with preserved ejection fraction * Ejection fraction of 70% from left heart catheterization from September 24, 2015 * On IV Lasix * Continue with lisinopril and carvedilol 4. Atrial fibrillation with RVR * Currently rate controlled * Off of diltiazem drip. * Continue with carvedilol for now. * Early on weight-based Lovenox for anticoagulation at this time. * check echo, if no significant valvular abnormality, start OC (NOACs > coumadin ) 5. Non-STEMI * Troponins were as high as 0.216 * Suspect demand ischemia and given the patient's respiratory failure, pneumonia and heart failure. * Troponin on was down to 0.073. * Medical management for now. * On ASA, coreg, lisinopril, statin 6. DVT prophylaxis with anticoagulation. Code Visit Inpatient E&M: 95246 Subs Hosp L2
--- NOTE | 2017-10-06 16:21 | PCM.PN.CARD ---
Subjectve: The patient remains in the ICU. She appears to be resting comfortably at this time. She has sensed occasional palpitations. She continues to have shortness of breath and dyspnea as well as wheezing and rhonchorous sounds. Objective: Vital Signs Temp Pulse Resp BP Pulse Ox 99.9 F H 94 30 H 146/69 H 92 10/06/17 14:00 10/06/17 16:00 10/06/17 16:00 10/06/17 16:00 10/06/17 16:00 Oxygen Flow Rate (L/min) 3 Oxygen Delivery Method Nasal Cannula Weight: 159 lb 13.362 oz Body Mass Index (BMI) 30.7 Intake and Output for Last 24 Hours 10/04/17 10/05/17 10/06/17 23:59 23:59 23:59 Intake Total 1064 / 1064 1531 / 1531 726.4 / 726.4 Output Total 1525 / 1525 1025 / 1025 650 / 650 Balance -461 / -461 506 / 506 76.4 / 76.4 General: Awake, Cooperative, No Acute Distress, Ill Appearing Lungs: Rhonchi, Inspiratory Wheezes - Babak, Expiratory Wheezes-Babak Cardiovascular: Regular Rhythm, Premature Ectopic Beats, Normal S1, Normal S2 Abdomen: Bowel Sounds Present, Soft, Non Tender Extremities: No edema 10/06/17 05:00: WBC 14.5 H, RBC 3.31 L, Hgb 9.7 L, Hct 31.2 L, MCV 94.3, MCH 29.3, MCHC 31.1 L, RDW 14.2, RDW Differential 48.8 H, Plt Count 360, MPV 10.4 10/06/17 05:00: Sodium 139, Potassium 4.1, Chloride 100, Carbon Dioxide 29.0, Anion Gap 10, BUN 24 H, Creatinine 0.63, Est GFR (MDRD) Af Amer 116, Est GFR (MDRD) Non-Af 96, BUN/Creatinine Ratio 37.9 H, Glucose 119 H, Calcium 8.7, Magnesium 2.6 Rhythm: Electronic ventricular paced rhythm with occasional premature ectopic complex Medical Necessity - Tobacco Use Smoking Status: Never smoker Assessment/Plan 1. Atrial fibrillation The patient appears to have developed atrial fibrillation. This may be secondary to her underlying pulmonary disease process superimposed upon her underlying chronic cardiovascular disease process. At the present time she is on rate control therapy. She remains without IV diltiazem at this time. She continues on oral beta-hal therapy. She has not been placed on antiarrhythmic therapy. He has been placed on anticoagulant therapy with Lovenox. If she does not require any other invasive evaluation or care then she could be transitioned to an oral systemic anticoagulant. 2. Paroxysmal ventricular tachycardia She reportedly has a history of paroxysmal ventricular tachycardia. She will continue to be monitored. She will continue medical management with her beta-hal therapy. Additional antiarrhythmic therapy can be used as deemed appropriate. She does have an ICD in place. 3. CHF She does appear to have signs and symptoms compatible with underlying CHF. This may be brought out by her underlying pulmonary disease process superimposed upon her cardiovascular disease process. Overall she appears to improve with her diuresis. Her weight has decreased. She will need to continue medical management. This will include diuretic therapy with electrolyte supplementation. 4. Cardiomyopathy The does have an underlying cardiomyopathy. There are concerns whether this is CAD related, valvular related, or another form of a cardiomyopathy. At the present time she will continue medical management. This will include agents such as nitrates as needed, beta-blockers, diuretics, afterload reducing agents, etc. 5. CAD status post RANDLE to the LAD At the time of her surgery she received a RANDLE to the LAD. She does have an indeterminate troponin. It is unclear as or whether this is a primary acute coronary syndrome event versus more likely being related to a type II event from supply demand mismatch secondary to her underlying acute pulmonary disease process superimposed upon her chronic cardiovascular disease process. At the moment would be reasonable to continue her medical management. She can be reassessed as deemed appropriate. 6. Status post aortic valve replacement-bioprosthetic The patient is status post the aforementioned surgery. She will continue to have her aortic valve monitored by history, exam, and echocardiogram. She will continue AHA antibiotic prophylaxis. 7. ICD The patient does have an underlying ICD in place. It is a biventricular device. It is a [employer]-D model # N164 serial #[id number] implanted on 05/20/2012. 8. Hypertension The patient will continue have her blood pressures monitored. She will be reassessed as needed. 9. Hyperlipidemia The patient will continue lipid-lowering therapy as deemed appropriate. 10. Pneumonia The patient will continue evaluation care per internal medicine and pulmonology. Comment: The above was discussed and reviewed with patient. This note was generated with [employer] software. It may contain incorrect words, spelling, and punctuation that were not noted in checking the note before signing.
[2017-10-06] MEDS: 0.9% NaCl Peripheral Flush Adult/Peds IV (17:54)
[2017-10-06] MEDS: Acetaminophen 325 MG Tablet 650 MG PO (18:52)
[2017-10-06] MEDS: traMADol 50 MG Tablet PO (19:25)
[2017-10-06] MEDS: Atorvastatin Calcium 20 MG Tablet PO (21:27)
[2017-10-07] VITALS (30 sets, daily range): BP systolic 96–125; BP diastolic 48–76; PULSE 72–101; RESP 12–33; TEMP 36.8–38.4; O2SAT 90–100
[2017-10-07 04:47] LABS: Anion Gap 8 (5-15); BUN 23 mg/dL (7-18); BUN/Creat Ratio 38.3 RATIO (10-20); Calcium,Total 8.7 mg/dL (8.5-10.1); Chloride 100 mmol/L (98-107); EST Glomerular Filtration Rate 102 mL/min (>60); Est Glom Filt Rate - Afr Amer 124 mL/min (>60); Estimated Creatinine Clearance 37.12 ml/min; Glucose 91 mg/dL (74-106); Potassium 3.8 mmol/L (3.5-5.1); Sodium Level 141 mmol/L (136-145)
[2017-10-07 05:12] LABS: Absolute Lymphocyte Count 1.32 X10^3/ul (0.83-4.51); Absolute Neutrophil Count 7.1 X10^3/uL (2.0-7.7); Basophil# 0.02 X10^3/uL; Basophil% 0.2 % (0-1); Eosinophil# 1.14 X10^3/uL; Eosinophils% 10.6 % (0-5); Hematocrit 31.7 % (37-47); Hemoglobin 9.8 g/dl (12.0-15.0); Lymphocyte # 1.32 X10^3/ul (4.0); Lymphocyte % 12.3 % (19-41); Mean Corp Hgb Conc 30.9 g/gl (32-36); Mean Corpuscular Hgb 29.3 pg (27.0-32.0); Mean Corpuscular Volume 94.6 fL (81-99); Mean Platelet Vol. 10.3 fl (6.2-12.0); Monocyte# 1.14 X10^3/uL; Monocyte% 10.6 % (0-10); Neutrophil # 7.07 X10^3/uL (2.7-7.7); Platelet Count 349 K/mm3 (150-450); RBC Distribution Width CV 14.3 % (11.6-14.6); RBC Distribution Width SD 49.3 fl (35.1-43.9); Red Blood Count 3.35 M/mm3 (4.2-5.4); White Blood Count 10.7 K/mm3 (4.4-11.0)
[2017-10-07 05:13] LABS: POSITIVE COUNT NO; POSITIVE DIFFERENTIAL NO; POSITIVE MORPHOLOGY NO
[2017-10-07] MEDS: Enoxaparin 80 MG/0.8 ML Syringe SC ×2 (05:46→18:41)
[2017-10-07] MEDS: Piperacil/Tazobactam 3.375 GM/50 ML ML IV ×3 (05:46→21:41)
--- NOTE | 2017-10-07 06:23 | VDLE_ITS ---
Reason For Study: SHORTNESS OF BREATH RIGHT LEFT GSV is normal. GSV is normal. CFV is compressible, spontaneous, phasic, CFV is compressible, spontaneous, phasic, competent and demonstrates normal competent, and demonstrates normal augmentation. augmentation. FV is compressible, spontaneous, phasic, FV is compressible, spontaneous, phasic, competent and demonstrates normal competent and demonstrates normal augmentation. augmentation. POP V is compressible, spontaneous, phasic, POP V is compressible, spontaneous, phasic, competent and demonstrates normal competent and demonstrates normal augmentation. augmentation. T/P Trunk is compressible. T/P Trunk is compressible. PTV is compressible. PTV is compressible. RT PerV is compressible. LT PerV is compressible. Procedure Exam performed portable in ICU/CCU. A preliminary report was called and/or faxed to ICU nurse. Interpretation Summary Deep veins of the lower extremities are bilaterally patent and compressible segmentally. There is no evidence of deep vein thrombosis on either side. Valvular competence appears intact within the proximal deep venous systems bilaterally. The greater saphenous veins appear bilaterally patent and compressible segmentally. Ordering Physician: Ramírez Reynolds Referring Physician: Sukh Parr Performed By: Wilma Ferguson RVT
--- NOTE | 2017-10-07 06:23 | PCM.PN.INT ---
Subjective: Patient did okay overnight. Patient continues to require increased FiO2 and was on 4 L most of the evening. Nursing reports the patient became acutely hypoxic in the middle of the evening and did require BiPAP rescue. Patient's diarrhea has improved, but patient is still spiking fevers overnight. Patient denies any pain at this time. Patient feels comfortable on BiPAP therapy. General: Alert, Oriented x3, Cooperative, No apparent distress, - - Hard of hearing. HEENT: Atraumatic, PERRLA, EOMI, Normocephalic, - - No scleral icterus or injection noted. Oral: No Gingival or Mucosal Lesions/ Ulcerations, Dry Mucosa Neck: Supple, No JVD, No Nodes, Trachea Midline Lungs: No rhonchi, No wheeze, No rales, Diminished, - - Symmetric expansion. No dullness to percussion. Cardiovascular: Normal S1, Normal S2, No murmurs, Irregular Rate, No rub noted, No Gallop Abdomen: Bowel Sounds Present, Soft, Non Tender, Non-Distended Extremities: No clubbing, No cyanosis, Capillary Refill Less than 3 Seconds, Edema - 1+ lower extremities Skin: No rashes, No breakdown Musculoskeletal: No Tenderness to Palpation of Joints or Extremities Lymphatic: No Cervical, Supraclavicular, or Inguinal Adenopathy Neurological: Cranial nerves II-XII grossly intact, Neuro grossly intact, Motor Exam 5/5 strength throughout Psych/Mental Status: Normal Affect, Appropriate Vital Signs Temp Pulse Resp BP Pulse Ox 37.7 C H 84 23 H 113/62 96 10/07/17 06:00 10/07/17 06:00 10/07/17 06:00 10/07/17 06:00 10/07/17 06:00 Oxygen Flow Rate (L/min) 4 Oxygen Delivery Method Bi-pap Weight: 72.9 kg Body Mass Index (BMI) 30.7 Intake and Output for Last 24 Hours 10/05/17 10/06/17 10/07/17 23:59 23:59 23:59 Intake Total 1531 / 1531 1407.5 / 1407.5 Output Total 1025 / 1025 1500 / 1500 Balance 506 / 506 -92.5 / -92.5 Labs (Last 48 Hours) 10/06/17 10/06/17 10/07/17 05:00 05:00 04:30 WBC 14.5 H 10.7 RBC 3.31 L 3.35 L Hgb 9.7 L 9.8 L Hct 31.2 L 31.7 L MCV 94.3 94.6 MCH 29.3 29.3 MCHC 31.1 L 30.9 L RDW 14.2 14.3 RDW Differential 48.8 H 49.3 H Plt Count 360 349 MPV 10.4 10.3 Immature Gran % (Auto) 0.300 Neut % (Auto) 66.0 Lymph % (Auto) 12.3 L [place] % (Auto) 10.6 H Eos % (Auto) 10.6 H Baso % (Auto) 0.2 Absolute Neuts (auto) 7.1 Absolute Lymphs (auto) 1.32 Total Counted Not Reportable Sodium 139 Potassium 4.1 Chloride 100 Carbon Dioxide 29.0 Anion Gap 10 BUN 24 H Creatinine 0.63 Estim Creat Clear Calc 37.12 Est GFR (MDRD) Af Amer 116 Est GFR (MDRD) Non-Af 96 BUN/Creatinine Ratio 37.9 H Glucose 119 H Calcium 8.7 Magnesium 2.6 10/07/17 04:30 WBC RBC Hgb Hct MCV MCH MCHC RDW RDW Differential Plt Count MPV Immature Gran % (Auto) Neut % (Auto) Lymph % (Auto) [place] % (Auto) Eos % (Auto) Baso % (Auto) Absolute Neuts (auto) Absolute Lymphs (auto) Total Counted Sodium 141 Potassium 3.8 Chloride 100 Carbon Dioxide 33.0 H Anion Gap 8 BUN 23 H Creatinine 0.60 Estim Creat Clear Calc 37.12 Est GFR (MDRD) Af Amer 124 Est GFR (MDRD) Non-Af 102 BUN/Creatinine Ratio 38.3 H Glucose 91 Calcium 8.7 Magnesium Microbiology 10/01/17 00:06 Blood Culture (Wb) #2 - Left Hand Blood Culture - Final No growth in 5 days. 10/05/17 05:30 Stool C. difficile DNA Amplification - Final Clinical Impression(s) from Imaging Studies Chest X-Ray 10/06/17 06:21 IMPRESSION: Persistent bilateral infiltrates worse on the right side. There has been mild improvement as compared to prior study. Further follow-up is recommended. Electronically Signed: Reggie Castillo MD at 8:18 EDT Tel [phone], Service support , Medical Necessity - Tobacco Use Smoking Status: Never smoker Assessment/Plan Active and Suspected Problems (Last Updated 06/23/17 @ 17:11 by Too Cote NP-C) multilobar HCAP (Acute) Acute respiratory failure with hypoxia (Acute) CHF (congestive heart failure) (Acute) RECOMMENDATIONS: 1. Complete a seven-day course of IV antibiotics 2. Continue intermittent BiPAP, with breaks as tolerated. Goal to maintain oxygen saturations at or above 90%. 3. Transition to p.o. Lasix 4. Rate/rhythm control per cardiology recommendations 5. Encourage incentive spirometer use and mobilize patient as tolerated 6. Obtain lower extremity Dopplers IMPRESSIONS: 1. Acute hypoxemic respiratory failure, likely secondary to healthcare associated pneumonia Patient is still having fevers despite IV antibiotics. Diarrhea and chest x-ray has improved. Patient is still having increased FiO2 requirements. Continue with aggressive pulmonary toileting. Wean oxygen as tolerated. Will decrease patient's diuretic therapy to p.o. Will obtain lower extremity Dopplers to evaluate for DVT given acute decompensation with fever and culture negative. May require ID consult for FUO. 2. Atrial fibrillation with RVR/Personal history of coronary artery disease status post CABG/aortic valve disease status post replacement/ICD in situ Continue rate/rhythm control therapy per cardiology recommendations. Patient is not anticoagulated at this time. She did receive Lasix IV twice yesterday, but overall fluid balance is neutral. 3. Hypokalemia Repleted previously. Recheck levels in the morning. 4. 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 This appears to have resolved at this time. 5. Advanced age/neuropathy/hypertension/hyperlipidemia/GERD Complicates care, management, recovery and prognosis. The patient is a documented DNR CCA on file. Physical therapy to continue to work with patient. This note was generated with [employer] software. It may contain incorrect words, spelling, and punctuation that were not noted in checking the note before signing. Code Visit Inpatient E&M: 59988 Subs Hosp L3
[2017-10-07] MEDS: guaiFENesin 1,200 MG Tablet 1200 MG PO ×2 (08:54→21:41)
[2017-10-07] MEDS: Carvedilol 25 MG Tablet PO ×2 (08:54→21:40)
[2017-10-07] MEDS: Magnesium Oxide 400 MG Tablet PO (08:54)
[2017-10-07] MEDS: Aspirin E.C. 81 MG Tablet PO (08:54)
[2017-10-07] MEDS: Lisinopril 40 MG Tablet PO (08:55)
[2017-10-07] MEDS: amLODIPine 5 MG Tablet PO (08:55)
[2017-10-07] MEDS: Famotidine 20 MG Tablet PO ×2 (08:55→21:40)
[2017-10-07] MEDS: Furosemide 40 MG Tablet PO ×2 (08:57→18:39)
[2017-10-07] MEDS: Menthol/Lanolin/Calamine/Znox 113 GM Tube 1 APPLIC TOPICAL ×2 (08:59→21:40)
--- NOTE | 2017-10-07 09:29 | CASEMGMT ---
SW participated in ICU rounds, pt will stay in ICU today. Plan continues to be for pt to go to TCU when ready, Keely Daniels in ICU notified. TRACIE will continue to follow. SHARLENE Perez, GAMING INVESTIGATOR
--- NOTE | 2017-10-07 15:05 | PCM.PN.HOSP ---
Patient Problems: Active and Suspected Problems (Last Updated 06/23/17 @ 17:11 by Too Cote NP-C) multilobar HCAP (Acute) Acute respiratory failure with hypoxia (Acute) CHF (congestive heart failure) (Acute) Subjective: Name hypoxic overnight dropping into the mid 70s. Required BiPAP again. Continues to have fevers. Patient states that she feels overall better. Vitals/I&O's: Vital Signs Temp Pulse Resp BP Pulse Ox 37.9 C H 78 26 H 97/59 L 97 10/07/17 12:00 10/07/17 12:00 10/07/17 12:00 10/07/17 12:00 10/07/17 12:00 Oxygen Flow Rate (L/min) 4 Oxygen Delivery Method Nasal Cannula Weight: 72.9 kg Body Mass Index (BMI) 30.7 Intake and Output for Last 24 Hours 10/05/17 10/06/17 10/07/17 23:59 23:59 23:59 Intake Total 1531 / 1531 1407.5 / 1407.5 696.1 / 696.1 Output Total 1025 / 1025 1500 / 1500 350 / 350 Balance 506 / 506 -92.5 / -92.5 346.1 / 346.1 General: Alert, Cooperative, No apparent distress HEENT: Atraumatic, Normocephalic Neck: No Nodes, Thyroid Normal Size and Texture Lungs: No rhonchi, No wheeze, Diminished Cardiovascular: Regular rate, Regular Rhythm, Normal S1, Normal S2, - - 2 out of 6 systolic ejection murmur Abdomen: Bowel Sounds Present, Soft, Non Tender, Non-Distended, No Hepato-splenomegaly Extremities: No edema, No Calf Tenderness Skin: No rashes, No breakdown Psych/Mental Status: Normal Affect, Appropriate Microbiology Past 72 Hours 10/01/17 00:06 Blood Culture (Wb) #2 - Left Hand Blood Culture - Final No growth in 5 days. 10/05/17 05:30 Stool C. difficile DNA Amplification - Final Laboratory Results 10/07/17 04:30: WBC 10.7, RBC 3.35 L, Hgb 9.8 L, Hct 31.7 L, MCV 94.6, MCH 29.3, MCHC 30.9 L, RDW 14.3, RDW Differential 49.3 H, Plt Count 349, MPV 10.3, Immature Gran % (Auto) 0.300, Neut % (Auto) 66.0, Lymph % (Auto) 12.3 L, Winn % (Auto) 10.6 H, Eos % (Auto) 10.6 H, Baso % (Auto) 0.2, Absolute Neuts (auto) 7.1, Absolute Lymphs (auto) 1.32, Total Counted Not Reportable 10/07/17 04:30: Sodium 141, Potassium 3.8, Chloride 100, Carbon Dioxide 33.0 H, Anion Gap 8, BUN 23 H, Creatinine 0.60, Estim Creat Clear Calc 37.12, Est GFR (MDRD) Af Amer 124, Est GFR (MDRD) Non-Af 102, BUN/Creatinine Ratio 38.3 H, Glucose 91, Calcium 8.7 Current Medications Acetaminophen (Tylenol) 650 mg PO Q4H PRN PRN PRN Reason: FEVER Last Admin: 10/06/17 18:52 Dose: 650 mg Acetaminophen (Tylenol) 650 mg RECTAL Q6H PRN PRN PRN Reason: temp>101 / Pain Last Admin: 10/04/17 19:46 Dose: 650 mg Albuterol Sulfate (Ventolin Aerosols) 2.5 mg INHALATION Q2H PRN PRN PRN Reason: SHORTNESS OF BREATH Last Admin: 10/02/17 20:26 Dose: 2.5 mg Amlodipine Besylate (Norvasc) 5 mg PO DAILY [facility] Last Admin: 10/07/17 08:55 Dose: 5 mg Aspirin (Ecotrin) 81 mg PO DAILY [facility] Last Admin: 10/07/17 08:54 Dose: 81 mg Atorvastatin Calcium (Lipitor) 20 mg PO QHS [facility] Last Admin: 10/06/17 21:27 Dose: 20 mg Calamine/Phenol (Calmoseptine Ointment) 1 applic TOPICAL BID [facility] PRN Reason: Protocol Last Admin: 10/07/17 08:59 Dose: 1 applicatio Carvedilol (Coreg) 25 mg PO BID [facility] Last Admin: 10/07/17 08:54 Dose: 25 mg Chlorhexidine Gluconate () 1 each TOPICAL DAILY [facility] Last Admin: 10/07/17 12:07 Dose: Not Given Enoxaparin Sodium (Lovenox) 80 mg 1 mg/kg (80 mg) SC Q12@0600,1800 [facility] Last Admin: 10/07/17 05:46 Dose: 80 mg Famotidine (Pepcid) 20 mg PO BID [facility] Last Admin: 10/07/17 08:55 Dose: 20 mg Furosemide (Lasix) 40 mg PO BID@1000,1800 [facility] Last Admin: 10/07/17 08:57 Dose: 40 mg Guaifenesin (Mucinex) 1,200 mg PO BID [facility] Last Admin: 10/07/17 08:54 Dose: 1,200 mg Piperacillin Sod/Tazobactam Sod (Zosyn) 3.375 gm in 50 mls @ 12.5 mls/hr IV Q8 [facility] Last Admin: 10/07/17 14:22 Dose: 12.5 mls/hr Labetalol HCl (Trandate) 10 mg IV Q4H PRN PRN PRN Reason: HR > 120 Last Admin: 10/02/17 23:06 Dose: 10 mg Lisinopril (Zestril) 40 mg PO DAILY [facility] Last Admin: 10/07/17 08:55 Dose: 40 mg Magnesium Oxide (Mag-Ox 400) 400 mg PO DAILY [facility] Last Admin: 10/07/17 08:54 Dose: 400 mg Nitroglycerin (Nitrostat) 0.4 mg SUBLINGUAL Q5M PRN PRN Reason: Chest Pain Nutritional Formula (Lactose Free) (Ensure Enlive) 120 ml PO 4X/DAY [facility] Last Admin: 10/07/17 14:22 Dose: 120 ml Ondansetron HCl (Zofran) 4 mg IV Q8H PRN PRN PRN Reason: NAUSEA Last Admin: 10/03/17 01:08 Dose: 4 mg Senna/Docusate Sodium (Senokot-S, Dilia-Colace) 2 tablet PO BID [facility] Last Admin: 10/07/17 08:55 Dose: Not Given Sodium Chloride () 5 - 30 ml IV UD PRN PRN Reason: SALINE FLUSH Last Admin: 10/06/17 17:54 Dose: 10 ml Tramadol HCl (Ultram) 50 mg PO Q6H PRN PRN PRN Reason: PAIN Last Admin: 10/06/17 19:25 Dose: 50 mg Medical Necessity - Tobacco Use Smoking Status: Never smoker Assessment/Plan All Active Problems (Last Updated 06/23/17 @ 17:11 by Too Cote NP-C) Surgical site infection (Resolved) multilobar HCAP (Acute) Acute respiratory failure with hypoxia (Acute) CHF (congestive heart failure) (Acute) Neck swelling (Acute) Accelerated hypertension (Resolved) Chest pain (Resolved) DVT of lower extremity (deep venous thrombosis) (Resolved) Nephrolithiasis (Resolved) 1. Acute hypoxic respiratory failure Multifactorial, due to CHF, pneumonia plus minus acute lung injury Improved today and patient is tolerating being off of BiPAP, at least for now. Though patient did decline overnight. Appreciate input by critical care medicine CXR improving tolerating nasal cannula at this time. Consider CT imaging particular with the patient's ongoing fevers. 2. Suspected gram-negative pneumonia/healthcare acquired pneumonia Sputum culture growing out coag negative staph, which I feel is probably contaminant. Continue with pulmonary toilet Continue with Zosyn still with temps up to 38.1c (Cdiff negative) Recheck blood cultures, urinalysis and urine culture. Duplex negative the lower extremities. 3. Heart failure with preserved ejection fraction Ejection fraction of 70% from left heart catheterization from September 24, 2015 Lasix transitioned over to oral. Continue with lisinopril and carvedilol 4. Atrial fibrillation with RVR Currently rate controlled On carvedilol. Continue with carvedilol for now. Early on weight-based Lovenox for anticoagulation at this time. check echo, if no significant valvular abnormality, start OC (NOACs > coumadin) 5. Non-STEMI Troponins were as high as 0.216 Suspect demand ischemia and given the patient's respiratory failure, pneumonia and heart failure. Troponin on was down to 0.073. Medical management for now. On ASA, coreg, lisinopril, statin 6. DVT prophylaxis with anticoagulation. Code Visit Inpatient E&M: 51269 Subs Hosp L2
--- NOTE | 2017-10-07 15:09 | PN_ITS ---
Patient Problems: Active and Suspected Problems (Last Updated 06/23/17 @ 17:11 by Too Cote NP- C) multilobar HCAP (Acute) Acute respiratory failure with hypoxia (Acute) CHF (congestive heart failure) (Acute) Subjective: Name hypoxic overnight dropping into the mid 70s. Required BiPAP again. Continues to have fevers. Patient states that she feels overall better. Vitals/I&O's: Vital Signs Temp Pulse Resp BP Pulse Ox 37.9 C H 78 26 H 97/59 L 97 10/07/17 12:00 10/07/17 12:00 10/07/17 12:00 10/07/17 12:00 10/07/17 12:00 Oxygen Flow Rate (L/min) 4 Oxygen Delivery Method Nasal Cannula Weight: 72.9 kg Body Mass Index (BMI) 30.7 Intake and Output for Last 24 Hours 10/05/17 10/06/17 10/07/17 23:59 23:59 23:59 Intake Total 1531 / 1531 1407.5 / 1407.5 696.1 / 696.1 Output Total 1025 / 1025 1500 / 1500 350 / 350 Balance 506 / 506 -92.5 / -92.5 346.1 / 346.1 General: Alert, Cooperative, No apparent distress HEENT: Atraumatic, Normocephalic Neck: No Nodes, Thyroid Normal Size and Texture Lungs: No rhonchi, No wheeze, Diminished Cardiovascular: Regular rate, Regular Rhythm, Normal S1, Normal S2, - - 2 out of 6 systolic ejection murmur Abdomen: Bowel Sounds Present, Soft, Non Tender, Non-Distended, No Hepato- splenomegaly Extremities: No edema, No Calf Tenderness Skin: No rashes, No breakdown Psych/Mental Status: Normal Affect, Appropriate Microbiology Past 72 Hours 10/01/17 00:06 Blood Culture (Wb) #2 - Left Hand Blood Culture - Final No growth in 5 days. 10/05/17 05:30 Stool C. difficile DNA Amplification - Final Laboratory Results 10/07/17 04:30: WBC 10.7, RBC 3.35 L, Hgb 9.8 L, Hct 31.7 L, MCV 94.6, MCH 29.3 , MCHC 30.9 L, RDW 14.3, RDW Differential 49.3 H, Plt Count 349, MPV 10.3, Immature Gran % (Auto) 0.300, Neut % (Auto) 66.0, Lymph % (Auto) 12.3 L, Stevens % (Auto) 10.6 H, Eos % (Auto) 10.6 H, Baso % (Auto) 0.2, Absolute Neuts (auto) 7.1 , Absolute Lymphs (auto) 1.32, Total Counted Not Reportable 10/07/17 04:30: Sodium 141, Potassium 3.8, Chloride 100, Carbon Dioxide 33.0 H, Anion Gap 8, BUN 23 H, Creatinine 0.60, Estim Creat Clear Calc 37.12, Est GFR ( MDRD) Af Amer 124, Est GFR (MDRD) Non-Af 102, BUN/Creatinine Ratio 38.3 H, Glucose 91, Calcium 8.7 Current Medications Acetaminophen (Tylenol) 650 mg PO Q4H PRN PRN PRN Reason: FEVER Last Admin: 10/06/17 18:52 Dose: 650 mg Acetaminophen (Tylenol) 650 mg RECTAL Q6H PRN PRN PRN Reason: temp>101 / Pain Last Admin: 10/04/17 19:46 Dose: 650 mg Albuterol Sulfate (Ventolin Aerosols) 2.5 mg INHALATION Q2H PRN PRN PRN Reason: SHORTNESS OF BREATH Last Admin: 10/02/17 20:26 Dose: 2.5 mg Amlodipine Besylate (Norvasc) 5 mg PO DAILY [facility] Last Admin: 10/07/17 08:55 Dose: 5 mg Aspirin (Ecotrin) 81 mg PO DAILY [facility] Last Admin: 10/07/17 08:54 Dose: 81 mg Atorvastatin Calcium (Lipitor) 20 mg PO QHS [facility] Last Admin: 10/06/17 21:27 Dose: 20 mg Calamine/Phenol (Calmoseptine Ointment) 1 applic TOPICAL BID [facility] PRN Reason: Protocol Last Admin: 10/07/17 08:59 Dose: 1 applicatio Carvedilol (Coreg) 25 mg PO BID [facility] Last Admin: 10/07/17 08:54 Dose: 25 mg Chlorhexidine Gluconate () 1 each TOPICAL DAILY [facility] Last Admin: 10/07/17 12:07 Dose: Not Given Enoxaparin Sodium (Lovenox) 80 mg 1 mg/kg (80 mg) SC Q12@0600,1800 [facility] Last Admin: 10/07/17 05:46 Dose: 80 mg Famotidine (Pepcid) 20 mg PO BID [facility] Last Admin: 10/07/17 08:55 Dose: 20 mg Furosemide (Lasix) 40 mg PO BID@1000,1800 [facility] Last Admin: 10/07/17 08:57 Dose: 40 mg Guaifenesin (Mucinex) 1,200 mg PO BID [facility] Last Admin: 10/07/17 08:54 Dose: 1,200 mg Piperacillin Sod/Tazobactam Sod (Zosyn) 3.375 gm in 50 mls @ 12.5 mls/hr IV Q8 [facility] Last Admin: 10/07/17 14:22 Dose: 12.5 mls/hr Labetalol HCl (Trandate) 10 mg IV Q4H PRN PRN PRN Reason: HR > 120 Last Admin: 10/02/17 23:06 Dose: 10 mg Lisinopril (Zestril) 40 mg PO DAILY [facility] Last Admin: 10/07/17 08:55 Dose: 40 mg Magnesium Oxide (Mag-Ox 400) 400 mg PO DAILY [facility] Last Admin: 10/07/17 08:54 Dose: 400 mg Nitroglycerin (Nitrostat) 0.4 mg SUBLINGUAL Q5M PRN PRN Reason: Chest Pain Nutritional Formula (Lactose Free) (Ensure Enlive) 120 ml PO 4X/DAY [facility] Last Admin: 10/07/17 14:22 Dose: 120 ml Ondansetron HCl (Zofran) 4 mg IV Q8H PRN PRN PRN Reason: NAUSEA Last Admin: 10/03/17 01:08 Dose: 4 mg Senna/Docusate Sodium (Senokot-S, Dilia-Colace) 2 tablet PO BID [facility] Last Admin: 10/07/17 08:55 Dose: Not Given Sodium Chloride () 5 - 30 ml IV UD PRN PRN Reason: SALINE FLUSH Last Admin: 10/06/17 17:54 Dose: 10 ml Tramadol HCl (Ultram) 50 mg PO Q6H PRN PRN PRN Reason: PAIN Last Admin: 10/06/17 19:25 Dose: 50 mg Medical Necessity - Tobacco Use Smoking Status: Never smoker Assessment/Plan All Active Problems (Last Updated 06/23/17 @ 17:11 by Too Cote NP-C) Surgical site infection (Resolved) multilobar HCAP (Acute) Acute respiratory failure with hypoxia (Acute) CHF (congestive heart failure) (Acute) Neck swelling (Acute) Accelerated hypertension (Resolved) Chest pain (Resolved) DVT of lower extremity (deep venous thrombosis) (Resolved) Nephrolithiasis (Resolved) 1. Acute hypoxic respiratory failure * Multifactorial, due to CHF, pneumonia plus minus acute lung injury * Improved today and patient is tolerating being off of BiPAP, at least for now. Though patient did decline overnight. * Appreciate input by critical care medicine * CXR improving * tolerating nasal cannula at this time. * Consider CT imaging particular with the patient's ongoing fevers. 2. Suspected gram-negative pneumonia/healthcare acquired pneumonia * Sputum culture growing out coag negative staph, which I feel is probably contaminant. * Continue with pulmonary toilet * Continue with Zosyn * still with temps up to 38.1c (Cdiff negative) * Recheck blood cultures, urinalysis and urine culture. * Duplex negative the lower extremities. 3. Heart failure with preserved ejection fraction * Ejection fraction of 70% from left heart catheterization from September 24, 2015 * Lasix transitioned over to oral. * Continue with lisinopril and carvedilol 4. Atrial fibrillation with RVR * Currently rate controlled * On carvedilol. * Continue with carvedilol for now. * Early on weight-based Lovenox for anticoagulation at this time. * check echo, if no significant valvular abnormality, start OC (NOACs > coumadin ) 5. Non-STEMI * Troponins were as high as 0.216 * Suspect demand ischemia and given the patient's respiratory failure, pneumonia and heart failure. * Troponin on was down to 0.073. * Medical management for now. * On ASA, coreg, lisinopril, statin 6. DVT prophylaxis with anticoagulation. Code Visit Inpatient E&M: 85264 Subs Hosp L2
[2017-10-07 15:29] LABS: Bacteria 0 SEEN /hpf (None Seen); Mucous, Urine 0 SEEN /hpf (<or=2+)
[2017-10-07 15:42] LABS: Color, Urine Yellow (Yellow); Glucose, Dipstick Normal (Normal); Ketone-Dipstick Negative (Negative); Leukocyte Esterase-Dipstick 25 /ul (Negative); Nitrite-Dipstick Negative (Negative); Occult Blood-Urine 50 /ul (Negative); Protein-Dipstick 30 mg/dl (Negative); Urine Bilirubin Dipstick Negative (Negative); Urine Clarity Clear (Clear); Urine Urobilinogen Normal (Normal); Urine pH 6.5 (5.0 - 8.0)
[2017-10-07 16:01] LABS: Red Blood Cells-Urine 0-5 SEEN /hpf (0-5); Squamous Epithelial Cells - UA 0-5 SEEN /hpf (5-10); White Blood Cells 0-5 SEEN /hpf (0-5)
[2017-10-07] MEDS: traMADol 50 MG Tablet PO (18:38)
--- NOTE | 2017-10-07 19:29 | PCM.PN.CARD ---
Subjectve: The patient remains in the ICU. She has demonstrated recurrent febrile episodes. She continues to have issues with her shortness of breath and dyspnea. Objective: Vital Signs Temp Pulse Resp BP Pulse Ox 101.0 F H 101 H 31 H 110/57 L 92 10/07/17 19:00 10/07/17 19:00 10/07/17 19:00 10/07/17 19:00 10/07/17 19:00 Oxygen Flow Rate (L/min) 4 Oxygen Delivery Method Nasal Cannula Weight: 160 lb 11.472 oz Body Mass Index (BMI) 30.7 Intake and Output for Last 24 Hours 10/05/17 10/06/17 10/07/17 23:59 23:59 23:59 Intake Total 1531 / 1531 1407.5 / 1407.5 988.1 / 988.1 Output Total 1025 / 1025 1500 / 1500 500 / 500 Balance 506 / 506 -92.5 / -92.5 488.1 / 488.1 General: Awake, Cooperative, Ill Appearing Lungs: Rhonchi - Scattered Cardiovascular: Regular Rhythm, Premature Ectopic Beats, Normal S1, Normal S2 Murmur Murmur: Grade 2/6, Mid Systolic, LLSB, LVOT, Sternal Notch Abdomen: Bowel Sounds Present, Soft, Non Tender Extremities: No edema 10/07/17 04:30: WBC 10.7, RBC 3.35 L, Hgb 9.8 L, Hct 31.7 L, MCV 94.6, MCH 29.3, MCHC 30.9 L, RDW 14.3, RDW Differential 49.3 H, Plt Count 349, MPV 10.3, Immature Gran % (Auto) 0.300, Neut % (Auto) 66.0, Lymph % (Auto) 12.3 L, [place] % (Auto) 10.6 H, Eos % (Auto) 10.6 H, Baso % (Auto) 0.2, Absolute Neuts (auto) 7.1, Total Counted Not Reportable 10/07/17 04:30: Sodium 141, Potassium 3.8, Chloride 100, Carbon Dioxide 33.0 H, Anion Gap 8, BUN 23 H, Creatinine 0.60, Est GFR (MDRD) Af Amer 124, Est GFR (MDRD) Non-Af 102, BUN/Creatinine Ratio 38.3 H, Glucose 91, Calcium 8.7 10/07/17 15:20: Urine Color Yellow, Urine Clarity Clear, Urine pH 6.5, Ur Specific Hominy 1.010, Urine Protein 30 H, Urine Glucose (UA) Normal, Urine Ketones Negative, Urine Occult Blood 50 H, Urine Nitrite Negative, Urine Bilirubin Negative, Urine Urobilinogen Normal, Ur Leukocyte Esterase 25 H, Urine RBC 0-5 SEEN, Urine WBC 0-5 SEEN Rhythm: Electronic ventricular paced rhythm Medical Necessity - Tobacco Use Smoking Status: Never smoker Assessment/Plan 1. Atrial fibrillation At the present time she is on rate control therapy. She continues on oral beta-hal therapy. She has not been placed on antiarrhythmic therapy. He has been placed on anticoagulant therapy with Lovenox. If she does not require any other invasive evaluation or care then she could be transitioned to an oral systemic anticoagulant. 2. Paroxysmal ventricular tachycardia She reportedly has a history of paroxysmal ventricular tachycardia. She will continue to be monitored. She will continue medical management with her beta-hal therapy. Additional antiarrhythmic therapy can be used as deemed appropriate. She does have an ICD in place. 3. CHF She does appear to have signs and symptoms compatible with underlying CHF. This may be brought out by her underlying pulmonary disease process superimposed upon her cardiovascular disease process. Overall she appears to improve with her diuresis. Her IV diuretics have been changed to oral diuretics. Her diuresis and weight will need to be followed. 4. Cardiomyopathy The does have an underlying cardiomyopathy. There are concerns whether this is CAD related, valvular related, or another form of a cardiomyopathy. At the present time she will continue medical management. This will include agents such as nitrates as needed, beta-blockers, diuretics, afterload reducing agents, etc. 5. CAD status post RANDLE to the LAD At the time of her surgery she received a RANDLE to the LAD. She does have an indeterminate troponin. It is unclear as or whether this is a primary acute coronary syndrome event versus more likely being related to a type II event from supply demand mismatch secondary to her underlying acute pulmonary disease process superimposed upon her chronic cardiovascular disease process. At the moment would be reasonable to continue her medical management. She can be reassessed as deemed appropriate. 6. Status post aortic valve replacement-bioprosthetic The patient is status post the aforementioned surgery. He has undergone further evaluation with a transthoracic echocardiogram. Her aortic valve apparatus was stable. (Please see official/complete report) 7. ICD The patient does have an underlying ICD in place. It is a biventricular device. It is a [email or web address]-D model # N164 serial #[id number] implanted on 05/20/2012. 8. Hypertension The patient will continue have her blood pressures monitored. She will be reassessed as needed. 9. Hyperlipidemia The patient will continue lipid-lowering therapy as deemed appropriate. 10. Pneumonia The patient continues with fevers. She continues under evaluation by internal medicine and pulmonology. She has had recurrent blood cultures with results pending. He is on IV antibiotics. This note was generated with [employer] dictation software. It may contain incorrect words, spelling, and punctuation that were not noted in checking the note before signing.
[2017-10-07] MEDS: Acetaminophen 325 MG Tablet 650 MG PO (19:33)
--- NOTE | 2017-10-07 19:34 | PN.CARD_ITS ---
Subjectve: The patient remains in the ICU. She has demonstrated recurrent febrile episodes. She continues to have issues with her shortness of breath and dyspnea. Objective: Vital Signs Temp Pulse Resp BP Pulse Ox 101.0 F H 101 H 31 H 110/57 L 92 10/07/17 19:00 10/07/17 19:00 10/07/17 19:00 10/07/17 19:00 10/07/17 19:00 Oxygen Flow Rate (L/min) 4 Oxygen Delivery Method Nasal Cannula Weight: 160 lb 11.472 oz Body Mass Index (BMI) 30.7 Intake and Output for Last 24 Hours 10/05/17 10/06/17 10/07/17 23:59 23:59 23:59 Intake Total 1531 / 1531 1407.5 / 1407.5 988.1 / 988.1 Output Total 1025 / 1025 1500 / 1500 500 / 500 Balance 506 / 506 -92.5 / -92.5 488.1 / 488.1 General: Awake, Cooperative, Ill Appearing Lungs: Rhonchi - Scattered Cardiovascular: Regular Rhythm, Premature Ectopic Beats, Normal S1, Normal S2 Murmur Murmur: Grade 2/6, Mid Systolic, LLSB, LVOT, Sternal Notch Abdomen: Bowel Sounds Present, Soft, Non Tender Extremities: No edema 10/07/17 04:30: WBC 10.7, RBC 3.35 L, Hgb 9.8 L, Hct 31.7 L, MCV 94.6, MCH 29.3 , MCHC 30.9 L, RDW 14.3, RDW Differential 49.3 H, Plt Count 349, MPV 10.3, Immature Gran % (Auto) 0.300, Neut % (Auto) 66.0, Lymph % (Auto) 12.3 L, [place] % (Auto) 10.6 H, Eos % (Auto) 10.6 H, Baso % (Auto) 0.2, Absolute Neuts (auto) 7.1 , Total Counted Not Reportable 10/07/17 04:30: Sodium 141, Potassium 3.8, Chloride 100, Carbon Dioxide 33.0 H, Anion Gap 8, BUN 23 H, Creatinine 0.60, Est GFR (MDRD) Af Amer 124, Est GFR ( MDRD) Non-Af 102, BUN/Creatinine Ratio 38.3 H, Glucose 91, Calcium 8.7 10/07/17 15:20: Urine Color Yellow, Urine Clarity Clear, Urine pH 6.5, Ur Specific [place] 1.010, Urine Protein 30 H, Urine Glucose (UA) Normal, Urine Ketones Negative, Urine Occult Blood 50 H, Urine Nitrite Negative, Urine Bilirubin Negative, Urine Urobilinogen Normal, Ur Leukocyte Esterase 25 H, Urine RBC 0-5 SEEN, Urine WBC 0-5 SEEN Rhythm: Electronic ventricular paced rhythm Medical Necessity - Tobacco Use Smoking Status: Never smoker Assessment/Plan 1. Atrial fibrillation At the present time she is on rate control therapy. She continues on oral beta- hal therapy. She has not been placed on antiarrhythmic therapy. He has been placed on anticoagulant therapy with Lovenox. If she does not require any other invasive evaluation or care then she could be transitioned to an oral systemic anticoagulant. 2. Paroxysmal ventricular tachycardia She reportedly has a history of paroxysmal ventricular tachycardia. She will continue to be monitored. She will continue medical management with her beta- hal therapy. Additional antiarrhythmic therapy can be used as deemed appropriate. She does have an ICD in place. 3. CHF She does appear to have signs and symptoms compatible with underlying CHF. This may be brought out by her underlying pulmonary disease process superimposed upon her cardiovascular disease process. Overall she appears to improve with her diuresis. Her IV diuretics have been changed to oral diuretics. Her diuresis and weight will need to be followed. 4. Cardiomyopathy The does have an underlying cardiomyopathy. There are concerns whether this is CAD related, valvular related, or another form of a cardiomyopathy. At the present time she will continue medical management. This will include agents such as nitrates as needed, beta-blockers, diuretics, afterload reducing agents, etc. 5. CAD status post RANDLE to the LAD At the time of her surgery she received a RANDLE to the LAD. She does have an indeterminate troponin. It is unclear as or whether this is a primary acute coronary syndrome event versus more likely being related to a type II event from supply demand mismatch secondary to her underlying acute pulmonary disease process superimposed upon her chronic cardiovascular disease process. At the moment would be reasonable to continue her medical management. She can be reassessed as deemed appropriate. 6. Status post aortic valve replacement-bioprosthetic The patient is status post the aforementioned surgery. He has undergone further evaluation with a transthoracic echocardiogram. Her aortic valve apparatus was stable. (Please see official/complete report) 7. ICD The patient does have an underlying ICD in place. It is a biventricular device. It is a [employer] GENERATOR REBUILDER-D model # N164 serial #[id number] implanted on 05/20/2012. 8. Hypertension The patient will continue have her blood pressures monitored. She will be reassessed as needed. 9. Hyperlipidemia The patient will continue lipid-lowering therapy as deemed appropriate. 10. Pneumonia The patient continues with fevers. She continues under evaluation by internal medicine and pulmonology. She has had recurrent blood cultures with results pending. He is on IV antibiotics. This note was generated with [employer] dictation software. It may contain incorrect words, spelling, and punctuation that were not noted in checking the note before signing.
[2017-10-07] MEDS: Senna/Docusate Sodium 1 Tablet 2 TABLET PO (21:41)
[2017-10-07] MEDS: Atorvastatin Calcium 20 MG Tablet PO (21:41)
[2017-10-08] VITALS (22 sets, daily range): BP systolic 97–140; BP diastolic 52–91; PULSE 73–96; RESP 12–31; TEMP 36.5–37.7; O2SAT 87–100
[2017-10-08 04:27] LABS: Absolute Neutrophil Count 5.5 X10^3/uL (2.0-7.7); Basophil# 0.03 X10^3/uL; Basophil% 0.3 % (0-1); Eosinophil# 1.34 X10^3/uL; Eosinophils% 14.1 % (0-5); Hematocrit 30.7 % (37-47); Hemoglobin 9.6 g/dl (12.0-15.0); Lymphocyte % 17.9 % (19-41); Mean Corp Hgb Conc 31.3 g/gl (32-36); Mean Corpuscular Hgb 30.2 pg (27.0-32.0); Mean Corpuscular Volume 96.5 fL (81-99); Mean Platelet Vol. 10.5 fl (6.2-12.0); Monocyte# 0.95 X10^3/uL; Neutrophil # 5.45 X10^3/uL (2.7-7.7); Neutrophil % 57.4 % (47-70); Platelet Count 342 K/mm3 (150-450); RBC Distribution Width CV 13.8 % (11.6-14.6); RBC Distribution Width SD 46.9 fl (35.1-43.9); Red Blood Count 3.18 M/mm3 (4.2-5.4); White Blood Count 9.5 K/mm3 (4.4-11.0)
[2017-10-08 04:29] LABS: POSITIVE COUNT NO; POSITIVE DIFFERENTIAL NO; POSITIVE MORPHOLOGY NO
[2017-10-08] MEDS: CHLORHEXIDINE GLUC 2% CLOTH 1 EACH TOWELETTE TOPICAL (04:37)
[2017-10-08 04:39] LABS: Anion Gap 9 (5-15); BUN 19 mg/dL (7-18); BUN/Creat Ratio 30.5 RATIO (10-20); Calcium,Total 8.3 mg/dL (8.5-10.1); Chloride 103 mmol/L (98-107); Creatinine, Serum 0.62 mg/dL (0.55-1.02); EST Glomerular Filtration Rate 98 mL/min (>60); Est Glom Filt Rate - Afr Amer 118 mL/min (>60); Estimated Creatinine Clearance 37.12 ml/min; Glucose 96 mg/dL (74-106); Potassium 3.9 mmol/L (3.5-5.1); Sodium Level 140 mmol/L (136-145)
[2017-10-08] MEDS: Enoxaparin 80 MG/0.8 ML Syringe SC ×2 (05:15→18:46)
[2017-10-08] MEDS: Piperacil/Tazobactam 3.375 GM/50 ML ML IV ×3 (05:16→21:36)
--- NOTE | 2017-10-08 06:35 | PN_ITS ---
Subjective: Patient did well overnight. No acute issues were reported. Patient did comply with BiPAP therapy and has remained on 4 L nasal cannula oxygen without difficulty. Patient reports subjective improvement compared to previous. Patient did have one bowel movement that was larger overnight. Patient did spike a fever yesterday afternoon/evening, but this did not persist overnight. General: Alert, Oriented x3, Cooperative, No apparent distress, - - Hard of hearing. HEENT: Atraumatic, PERRLA, EOMI, Normocephalic, - - No scleral icterus or injection noted. Oral: Moist Mucosa, No Gingival or Mucosal Lesions/ Ulcerations Neck: Supple, No JVD, No Nodes, Trachea Midline Lungs: No rhonchi, No wheeze, No rales, Diminished, - - Symmetric expansion. No dullness to percussion. Cardiovascular: Normal S1, Normal S2, No murmurs, Irregular Rate, No rub noted, No Gallop Abdomen: Bowel Sounds Present, Soft, Non Tender, Non-Distended Extremities: No clubbing, No cyanosis, No edema, Capillary Refill Less than 3 Seconds Skin: No rashes, No breakdown Musculoskeletal: No Tenderness to Palpation of Joints or Extremities Lymphatic: No Cervical, Supraclavicular, or Inguinal Adenopathy Neurological: Cranial nerves II-XII grossly intact, Neuro grossly intact, Motor Exam 5/5 strength throughout Psych/Mental Status: Normal Affect, Appropriate Vital Signs Temp Pulse Resp BP Pulse Ox 36.7 C 81 29 H 112/58 L 95 10/08/17 06:00 10/08/17 06:00 10/08/17 06:00 10/08/17 06:00 10/08/17 06:00 Oxygen Flow Rate (L/min) 4 Oxygen Delivery Method Nasal Cannula Weight: 71.6 kg Body Mass Index (BMI) 30.7 Intake and Output for Last 24 Hours 10/06/17 10/07/17 10/08/17 23:59 23:59 23:59 Intake Total 1407.5 / 1407.5 1231.1 / 1231.1 135 / 135 Output Total 1500 / 1500 700 / 700 225 / 225 Balance -92.5 / -92.5 531.1 / 531.1 -90 / -90 Labs (Last 48 Hours) 10/07/17 10/07/17 10/07/17 04:30 04:30 15:20 WBC 10.7 RBC 3.35 L Hgb 9.8 L Hct 31.7 L MCV 94.6 MCH 29.3 MCHC 30.9 L RDW 14.3 RDW Differential 49.3 H Plt Count 349 MPV 10.3 Immature Gran % (Auto) 0.300 Neut % (Auto) 66.0 Lymph % (Auto) 12.3 L [place] % (Auto) 10.6 H Eos % (Auto) 10.6 H Baso % (Auto) 0.2 Absolute Neuts (auto) 7.1 Absolute Lymphs (auto) 1.32 Total Counted Not Reportable Sodium 141 Potassium 3.8 Chloride 100 Carbon Dioxide 33.0 H Anion Gap 8 BUN 23 H Creatinine 0.60 Estim Creat Clear Calc 37.12 Est GFR (MDRD) Af Amer 124 Est GFR (MDRD) Non-Af 102 BUN/Creatinine Ratio 38.3 H Glucose 91 Calcium 8.7 Urine Color Yellow Urine Clarity Clear Urine pH 6.5 Ur Specific [place] 1.010 Urine Protein 30 H Urine Glucose (UA) Normal Urine Ketones Negative Urine Occult Blood 50 H Urine Nitrite Negative Urine Bilirubin Negative Urine Urobilinogen Normal Ur Leukocyte Esterase 25 H Urine RBC 0-5 SEEN Urine WBC 0-5 SEEN Ur Squamous Epith Cells 0-5 SEEN Urine Bacteria 0 SEEN Urine Mucus 0 SEEN 10/08/17 10/08/17 04:15 04:15 WBC 9.5 RBC 3.18 L Hgb 9.6 L Hct 30.7 L MCV 96.5 MCH 30.2 MCHC 31.3 L RDW 13.8 RDW Differential 46.9 H Plt Count 342 MPV 10.5 Immature Gran % (Auto) 0.300 Neut % (Auto) 57.4 Lymph % (Auto) 17.9 L [place] % (Auto) 10.0 Eos % (Auto) 14.1 H Baso % (Auto) 0.3 Absolute Neuts (auto) 5.5 Absolute Lymphs (auto) 1.70 Total Counted Not Reportable Sodium 140 Potassium 3.9 Chloride 103 Carbon Dioxide 28.0 Anion Gap 9 BUN 19 H Creatinine 0.62 Estim Creat Clear Calc 37.12 Est GFR (MDRD) Af Amer 118 Est GFR (MDRD) Non-Af 98 BUN/Creatinine Ratio 30.5 H Glucose 96 Calcium 8.3 L Urine Color Urine Clarity Urine pH Ur Specific [place] Urine Protein Urine Glucose (UA) Urine Ketones Urine Occult Blood Urine Nitrite Urine Bilirubin Urine Urobilinogen Ur Leukocyte Esterase Urine RBC Urine WBC Ur Squamous Epith Cells Urine Bacteria Urine Mucus Microbiology 10/01/17 00:06 Blood Culture (Wb) #2 - Left Hand Blood Culture - Final No growth in 5 days. Medical Necessity - Tobacco Use Smoking Status: Never smoker Assessment/Plan All Active Problems (Last Updated 06/23/17 @ 17:11 by Too Cote NP-C) Surgical site infection (Resolved) multilobar HCAP (Acute) Acute respiratory failure with hypoxia (Acute) CHF (congestive heart failure) (Acute) Neck swelling (Acute) Accelerated hypertension (Resolved) Chest pain (Resolved) DVT of lower extremity (deep venous thrombosis) (Resolved) Nephrolithiasis (Resolved) RECOMMENDATIONS: 1. Consider infectious disease consult for fever of unknown origin 2. Continue intermittent BiPAP, with breaks as tolerated. Goal to maintain oxygen saturations at or above 90%. 3. Continue Lasix at current dosing 4. Rate/rhythm control per cardiology recommendations 5. Encourage incentive spirometer use and mobilize patient as tolerated 6. Likely okay to leave the intensive care unit IMPRESSIONS: 1. Acute hypoxemic respiratory failure, likely secondary to healthcare associated pneumonia Patient is still having fevers despite IV antibiotics. Diarrhea and chest x-ray has improved. Patient's oxygenation requirements are improving slowly. Continue with aggressive pulmonary toileting. Wean oxygen as tolerating. Likely okay to continue with current diuretic regimen. Patient has continued to spike fevers, but has remained hemodynamically stable. Likely okay to leave the intensive care unit from my perspective. Would consider obtaining an infectious disease consult for fever of unknown origin. 2. Atrial fibrillation with RVR/Personal history of coronary artery disease status post CABG/aortic valve disease status post replacement/ICD in situ Continue rate/rhythm control therapy per cardiology recommendations. Patient is not anticoagulated at this time. Patient transition to p.o. Lasix yesterday. Slight increase in I's and O's. Will need to watch closely. Body weight is actually down. 3. Hypokalemia Repleted previously. Recheck levels in the morning. 4. 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 This appears to have resolved at this time. 5. Advanced age/neuropathy/hypertension/hyperlipidemia/GERD Complicates care, management, recovery and prognosis. The patient is a documented DNR CCA on file. Physical therapy to continue to work with patient. This note was generated with [employer] software. It may contain incorrect words, spelling, and punctuation that were not noted in checking the note before signing. Code Visit Inpatient E&M: 11901 Subs Hosp L3
--- NOTE | 2017-10-08 08:22 | PCM.PN.HOSP ---
Patient Problems: Active and Suspected Problems (Last Updated 06/23/17 @ 17:11 by Too Cote LEARNING AND DEVELOPMENT MANAGER-C) multilobar HCAP (Acute) Acute respiratory failure with hypoxia (Acute) CHF (congestive heart failure) (Acute) Subjective: breathing better. tolerated being off BiPAP during the day yesterday and so far today. Vitals/I&O's: Vital Signs Temp Pulse Resp BP Pulse Ox 36.7 C 81 29 H 112/58 L 95 10/08/17 06:00 10/08/17 06:00 10/08/17 06:00 10/08/17 06:00 10/08/17 06:00 Oxygen Flow Rate (L/min) 4 Oxygen Delivery Method Nasal Cannula Weight: 71.6 kg Body Mass Index (BMI) 30.7 Intake and Output for Last 24 Hours 10/06/17 10/07/17 10/08/17 23:59 23:59 23:59 Intake Total 1407.5 / 1407.5 1231.1 / 1231.1 135 / 135 Output Total 1500 / 1500 700 / 700 225 / 225 Balance -92.5 / -92.5 531.1 / 531.1 -90 / -90 General: Alert, Cooperative, No apparent distress HEENT: Atraumatic, Normocephalic Neck: No Nodes, Thyroid Normal Size and Texture Lungs: Diminished, - - bi lateral crackles. Cardiovascular: Regular rate, Regular Rhythm, Normal S1, Normal S2, No murmurs Abdomen: Bowel Sounds Present, Soft, Non Tender, Non-Distended, No Hepato-splenomegaly, Passing Flatus Extremities: No edema, No Calf Tenderness Skin: No rashes, No breakdown Musculoskeletal: No Tenderness to Palpation of Joints or Extremities, No Muscle Wasting Psych/Mental Status: Normal Affect, Appropriate Microbiology Past 72 Hours 10/01/17 00:06 Blood Culture (Wb) #2 - Left Hand Blood Culture - Final No growth in 5 days. 10/05/17 05:30 Stool C. difficile DNA Amplification - Final Laboratory Results 10/07/17 15:20: Urine Color Yellow, Urine Clarity Clear, Urine pH 6.5, Ur Specific [place] 1.010, Urine Protein 30 H, Urine Glucose (UA) Normal, Urine Ketones Negative, Urine Occult Blood 50 H, Urine Nitrite Negative, Urine Bilirubin Negative, Urine Urobilinogen Normal, Ur Leukocyte Esterase 25 H, Urine RBC 0-5 SEEN, Urine WBC 0-5 SEEN, Ur Squamous Epith Cells 0-5 SEEN, Urine Bacteria 0 SEEN, Urine Mucus 0 SEEN 10/08/17 04:15: WBC 9.5, RBC 3.18 L, Hgb 9.6 L, Hct 30.7 L, MCV 96.5, MCH 30.2, MCHC 31.3 L, RDW 13.8, RDW Differential 46.9 H, Plt Count 342, MPV 10.5, Immature Gran % (Auto) 0.300, Neut % (Auto) 57.4, Lymph % (Auto) 17.9 L, [place] % (Auto) 10.0, Eos % (Auto) 14.1 H, Baso % (Auto) 0.3, Absolute Neuts (auto) 5.5, Absolute Lymphs (auto) 1.70, Total Counted Not Reportable 10/08/17 04:15: Sodium 140, Potassium 3.9, Chloride 103, Carbon Dioxide 28.0, Anion Gap 9, BUN 19 H, Creatinine 0.62, Estim Creat Clear Calc 37.12, Est GFR (MDRD) Af Amer 118, Est GFR (MDRD) Non-Af 98, BUN/Creatinine Ratio 30.5 H, Glucose 96, Calcium 8.3 L Current Medications Acetaminophen (Tylenol) 650 mg PO Q4H PRN PRN PRN Reason: FEVER Last Admin: 10/07/17 19:33 Dose: 650 mg Acetaminophen (Tylenol) 650 mg RECTAL Q6H PRN PRN PRN Reason: temp>101 / Pain Last Admin: 10/04/17 19:46 Dose: 650 mg Albuterol Sulfate (Ventolin Aerosols) 2.5 mg INHALATION Q2H PRN PRN PRN Reason: SHORTNESS OF BREATH Last Admin: 10/02/17 20:26 Dose: 2.5 mg Amlodipine Besylate (Norvasc) 5 mg PO DAILY [facility] Last Admin: 10/07/17 08:55 Dose: 5 mg Aspirin (Ecotrin) 81 mg PO DAILY [facility] Last Admin: 10/07/17 08:54 Dose: 81 mg Atorvastatin Calcium (Lipitor) 20 mg PO QHS [facility] Last Admin: 10/07/17 21:41 Dose: 20 mg Calamine/Phenol (Calmoseptine Ointment) 1 applic TOPICAL BID [facility] PRN Reason: Protocol Last Admin: 10/07/17 21:40 Dose: 1 applicatio Carvedilol (Coreg) 25 mg PO BID [facility] Last Admin: 10/07/17 21:40 Dose: 25 mg Chlorhexidine Gluconate () 1 each TOPICAL DAILY [facility] Last Admin: 10/08/17 04:37 Dose: 1 each Enoxaparin Sodium (Lovenox) 80 mg 1 mg/kg (80 mg) SC Q12@0600,1800 [facility] Last Admin: 10/08/17 05:15 Dose: 80 mg Famotidine (Pepcid) 20 mg PO BID [facility] Last Admin: 10/07/17 21:40 Dose: 20 mg Furosemide (Lasix) 40 mg PO BID@1000,1800 [facility] Last Admin: 10/07/17 18:39 Dose: 40 mg Guaifenesin (Mucinex) 1,200 mg PO BID [facility] Last Admin: 10/07/17 21:41 Dose: 1,200 mg Piperacillin Sod/Tazobactam Sod (Zosyn) 3.375 gm in 50 mls @ 12.5 mls/hr IV Q8 [facility] Last Admin: 10/08/17 05:16 Dose: 12.5 mls/hr Labetalol HCl (Trandate) 10 mg IV Q4H PRN PRN PRN Reason: HR > 120 Last Admin: 10/02/17 23:06 Dose: 10 mg Lisinopril (Zestril) 40 mg PO DAILY [facility] Last Admin: 10/07/17 08:55 Dose: 40 mg Magnesium Oxide (Mag-Ox 400) 400 mg PO DAILY [facility] Last Admin: 10/07/17 08:54 Dose: 400 mg Nitroglycerin (Nitrostat) 0.4 mg SUBLINGUAL Q5M PRN PRN Reason: Chest Pain Nutritional Formula (Lactose Free) (Ensure Enlive) 120 ml PO 4X/DAY [facility] Last Admin: 10/07/17 22:04 Dose: Not Given Ondansetron HCl (Zofran) 4 mg IV Q8H PRN PRN PRN Reason: NAUSEA Last Admin: 10/03/17 01:08 Dose: 4 mg Senna/Docusate Sodium (Senokot-S, Dilia-Colace) 2 tablet PO BID PRN PRN PRN Reason: Constipation Sodium Chloride () 5 - 30 ml IV UD PRN PRN Reason: SALINE FLUSH Last Admin: 10/06/17 17:54 Dose: 10 ml Tramadol HCl (Ultram) 50 mg PO Q6H PRN PRN PRN Reason: PAIN Last Admin: 10/07/17 18:38 Dose: 50 mg Medical Necessity - Tobacco Use Smoking Status: Never smoker Assessment/Plan All Active Problems (Last Updated 06/23/17 @ 17:11 by Too Cote, LEARNING AND DEVELOPMENT MANAGER-C) Surgical site infection (Resolved) multilobar HCAP (Acute) Acute respiratory failure with hypoxia (Acute) CHF (congestive heart failure) (Acute) Neck swelling (Acute) Accelerated hypertension (Resolved) Chest pain (Resolved) DVT of lower extremity (deep venous thrombosis) (Resolved) Nephrolithiasis (Resolved) 1. Acute hypoxic respiratory failure Multifactorial, due to CHF, pneumonia plus minus acute lung injury Improved today and patient is tolerating being off of BiPAP, at least for now. Appreciate input by critical care medicine CXR improving tolerating nasal cannula at this time. 2. Suspected gram-negative pneumonia/healthcare acquired pneumonia Sputum culture growing out coag negative staph, which I feel is probably contaminant. Continue with pulmonary toilet Continue with Zosyn still with temps up to 38.1c (Cdiff negative) Recheck blood cultures, urinalysis and urine culture. Duplex negative the lower extremities. With ongoing fevers will check CT chest and abdomen. 3. Heart failure with preserved ejection fraction Ejection fraction of 70% from left heart catheterization from September 24, 2015 Lasix transitioned over to oral. Continue with lisinopril and carvedilol 4. Atrial fibrillation with RVR Currently rate controlled On carvedilol. Continue with carvedilol for now. Early on weight-based Lovenox for anticoagulation at this time. given bioprsthetic AV, start coumadin 5. Non-STEMI Troponins were as high as 0.216 Suspect demand ischemia and given the patient's respiratory failure, pneumonia and heart failure. Troponin on was down to 0.073. Medical management for now. On ASA, coreg, lisinopril, statin 6. DVT prophylaxis with anticoagulation. Will deescalate Code Visit Inpatient E&M: 99816 Subs Hosp L2
--- NOTE | 2017-10-08 08:32 | PN_ITS ---
Patient Problems: Active and Suspected Problems (Last Updated 06/23/17 @ 17:11 by Too Cote PAYROLL ANALYST- C) multilobar HCAP (Acute) Acute respiratory failure with hypoxia (Acute) CHF (congestive heart failure) (Acute) Subjective: breathing better. tolerated being off BiPAP during the day yesterday and so far today. Vitals/I&O's: Vital Signs Temp Pulse Resp BP Pulse Ox 36.7 C 81 29 H 112/58 L 95 10/08/17 06:00 10/08/17 06:00 10/08/17 06:00 10/08/17 06:00 10/08/17 06:00 Oxygen Flow Rate (L/min) 4 Oxygen Delivery Method Nasal Cannula Weight: 71.6 kg Body Mass Index (BMI) 30.7 Intake and Output for Last 24 Hours 10/06/17 10/07/17 10/08/17 23:59 23:59 23:59 Intake Total 1407.5 / 1407.5 1231.1 / 1231.1 135 / 135 Output Total 1500 / 1500 700 / 700 225 / 225 Balance -92.5 / -92.5 531.1 / 531.1 -90 / -90 General: Alert, Cooperative, No apparent distress HEENT: Atraumatic, Normocephalic Neck: No Nodes, Thyroid Normal Size and Texture Lungs: Diminished, - - bi lateral crackles. Cardiovascular: Regular rate, Regular Rhythm, Normal S1, Normal S2, No murmurs Abdomen: Bowel Sounds Present, Soft, Non Tender, Non-Distended, No Hepato- splenomegaly, Passing Flatus Extremities: No edema, No Calf Tenderness Skin: No rashes, No breakdown Musculoskeletal: No Tenderness to Palpation of Joints or Extremities, No Muscle Wasting Psych/Mental Status: Normal Affect, Appropriate Microbiology Past 72 Hours 10/01/17 00:06 Blood Culture (Wb) #2 - Left Hand Blood Culture - Final No growth in 5 days. 10/05/17 05:30 Stool C. difficile DNA Amplification - Final Laboratory Results 10/07/17 15:20: Urine Color Yellow, Urine Clarity Clear, Urine pH 6.5, Ur Specific [place] 1.010, Urine Protein 30 H, Urine Glucose (UA) Normal, Urine Ketones Negative, Urine Occult Blood 50 H, Urine Nitrite Negative, Urine Bilirubin Negative, Urine Urobilinogen Normal, Ur Leukocyte Esterase 25 H, Urine RBC 0-5 SEEN, Urine WBC 0-5 SEEN, Ur Squamous Epith Cells 0-5 SEEN, Urine Bacteria 0 SEEN, Urine Mucus 0 SEEN 10/08/17 04:15: WBC 9.5, RBC 3.18 L, Hgb 9.6 L, Hct 30.7 L, MCV 96.5, MCH 30.2, MCHC 31.3 L, RDW 13.8, RDW Differential 46.9 H, Plt Count 342, MPV 10.5, Immature Gran % (Auto) 0.300, Neut % (Auto) 57.4, Lymph % (Auto) 17.9 L, [place] % (Auto) 10.0, Eos % (Auto) 14.1 H, Baso % (Auto) 0.3, Absolute Neuts (auto) 5.5, Absolute Lymphs (auto) 1.70, Total Counted Not Reportable 10/08/17 04:15: Sodium 140, Potassium 3.9, Chloride 103, Carbon Dioxide 28.0, Anion Gap 9, BUN 19 H, Creatinine 0.62, Estim Creat Clear Calc 37.12, Est GFR ( MDRD) Af Amer 118, Est GFR (MDRD) Non-Af 98, BUN/Creatinine Ratio 30.5 H, Glucose 96, Calcium 8.3 L Current Medications Acetaminophen (Tylenol) 650 mg PO Q4H PRN PRN PRN Reason: FEVER Last Admin: 10/07/17 19:33 Dose: 650 mg Acetaminophen (Tylenol) 650 mg RECTAL Q6H PRN PRN PRN Reason: temp>101 / Pain Last Admin: 10/04/17 19:46 Dose: 650 mg Albuterol Sulfate (Ventolin Aerosols) 2.5 mg INHALATION Q2H PRN PRN PRN Reason: SHORTNESS OF BREATH Last Admin: 10/02/17 20:26 Dose: 2.5 mg Amlodipine Besylate (Norvasc) 5 mg PO DAILY [facility] Last Admin: 10/07/17 08:55 Dose: 5 mg Aspirin (Ecotrin) 81 mg PO DAILY [facility] Last Admin: 10/07/17 08:54 Dose: 81 mg Atorvastatin Calcium (Lipitor) 20 mg PO QHS [facility] Last Admin: 10/07/17 21:41 Dose: 20 mg Calamine/Phenol (Calmoseptine Ointment) 1 applic TOPICAL BID [facility] PRN Reason: Protocol Last Admin: 10/07/17 21:40 Dose: 1 applicatio Carvedilol (Coreg) 25 mg PO BID [facility] Last Admin: 10/07/17 21:40 Dose: 25 mg Chlorhexidine Gluconate () 1 each TOPICAL DAILY [facility] Last Admin: 10/08/17 04:37 Dose: 1 each Enoxaparin Sodium (Lovenox) 80 mg 1 mg/kg (80 mg) SC Q12@0600,1800 [facility] Last Admin: 10/08/17 05:15 Dose: 80 mg Famotidine (Pepcid) 20 mg PO BID [facility] Last Admin: 10/07/17 21:40 Dose: 20 mg Furosemide (Lasix) 40 mg PO BID@1000,1800 [facility] Last Admin: 10/07/17 18:39 Dose: 40 mg Guaifenesin (Mucinex) 1,200 mg PO BID [facility] Last Admin: 10/07/17 21:41 Dose: 1,200 mg Piperacillin Sod/Tazobactam Sod (Zosyn) 3.375 gm in 50 mls @ 12.5 mls/hr IV Q8 [facility] Last Admin: 10/08/17 05:16 Dose: 12.5 mls/hr Labetalol HCl (Trandate) 10 mg IV Q4H PRN PRN PRN Reason: HR > 120 Last Admin: 10/02/17 23:06 Dose: 10 mg Lisinopril (Zestril) 40 mg PO DAILY [facility] Last Admin: 10/07/17 08:55 Dose: 40 mg Magnesium Oxide (Mag-Ox 400) 400 mg PO DAILY [facility] Last Admin: 10/07/17 08:54 Dose: 400 mg Nitroglycerin (Nitrostat) 0.4 mg SUBLINGUAL Q5M PRN PRN Reason: Chest Pain Nutritional Formula (Lactose Free) (Ensure Enlive) 120 ml PO 4X/DAY [facility] Last Admin: 10/07/17 22:04 Dose: Not Given Ondansetron HCl (Zofran) 4 mg IV Q8H PRN PRN PRN Reason: NAUSEA Last Admin: 10/03/17 01:08 Dose: 4 mg Senna/Docusate Sodium (Senokot-S, Dilia-Colace) 2 tablet PO BID PRN PRN PRN Reason: Constipation Sodium Chloride () 5 - 30 ml IV UD PRN PRN Reason: SALINE FLUSH Last Admin: 10/06/17 17:54 Dose: 10 ml Tramadol HCl (Ultram) 50 mg PO Q6H PRN PRN PRN Reason: PAIN Last Admin: 10/07/17 18:38 Dose: 50 mg Medical Necessity - Tobacco Use Smoking Status: Never smoker Assessment/Plan All Active Problems (Last Updated 06/23/17 @ 17:11 by Too Cote, PAYROLL ANALYST-C) Surgical site infection (Resolved) multilobar HCAP (Acute) Acute respiratory failure with hypoxia (Acute) CHF (congestive heart failure) (Acute) Neck swelling (Acute) Accelerated hypertension (Resolved) Chest pain (Resolved) DVT of lower extremity (deep venous thrombosis) (Resolved) Nephrolithiasis (Resolved) 1. Acute hypoxic respiratory failure * Multifactorial, due to CHF, pneumonia plus minus acute lung injury * Improved today and patient is tolerating being off of BiPAP, at least for now. * Appreciate input by critical care medicine * CXR improving * tolerating nasal cannula at this time. 2. Suspected gram-negative pneumonia/healthcare acquired pneumonia * Sputum culture growing out coag negative staph, which I feel is probably contaminant. * Continue with pulmonary toilet * Continue with Zosyn * still with temps up to 38.1c (Cdiff negative) * Recheck blood cultures, urinalysis and urine culture. * Duplex negative the lower extremities. * With ongoing fevers will check CT chest and abdomen. 3. Heart failure with preserved ejection fraction * Ejection fraction of 70% from left heart catheterization from September 24, 2015 * Lasix transitioned over to oral. * Continue with lisinopril and carvedilol 4. Atrial fibrillation with RVR * Currently rate controlled * On carvedilol. * Continue with carvedilol for now. * Early on weight-based Lovenox for anticoagulation at this time. * given bioprsthetic AV, start coumadin 5. Non-STEMI * Troponins were as high as 0.216 * Suspect demand ischemia and given the patient's respiratory failure, pneumonia and heart failure. * Troponin on was down to 0.073. * Medical management for now. * On ASA, coreg, lisinopril, statin 6. DVT prophylaxis with anticoagulation. Will deescalate Code Visit Inpatient E&M: 82206 Subs Hosp L2
--- NOTE | 2017-10-08 09:09 | CASEMGMT ---
SW spoke w/physician, it is not anticipated pt will be ready for TCU yet tomorrow. Pt does have an order in to move to PCU today. SW let Keely in TCU know, TRACIE will continue to follow. SHARLENE Perez, [employer]
--- NOTE | 2017-10-08 09:18 | CT_ITS ---
STUDY: CT ABDOMEN AND PELVIS WITH CONTRAST REASON FOR EXAM: Female, 82 years old. Fevers of unknown origin. Recent left hip replacement with surgical site infection. History of cholecystectomy, appendectomy, hysterectomy. Ovaries remain. RADIATION DOSAGE (If Supplied By Facility): CTDIvol = ( 11.4+19.9+20 ) mGy, DLP = ( 1770.23 ) mGycm TECHNIQUE: Transaxial images were obtained from the dome of the diaphragm to the symphysis pubis with oral contrast. 100ml ml of Isovue 300 contrast was administered. Sagittal and coronal images were reconstructed. Individualized dose optimization techniques were used for this CT. COMPARISON: CT chest 05/16/2016. CT pelvis 05/14/2013. FINDINGS: Body wall soft tissues: Slender seroma within the left hip incision. This measures approximately 4.7 cm craniocaudal, 3.4 cm transverse, but only 8 mm in thickness. There is no apparent left hip effusion. There is slender fluid within the musculature just anterior to the greater trochanter. Osseous structures: Left hip arthroplasty. Multilevel lumbar spondylosis. Scoliosis. L4-L5 grade 1 spondylolisthesis with facet hypertrophy and foraminal narrowing. Mild to moderate SI joint degenerative changes bilaterally greater on the right. Inferior chest: There are extensive moderately dense infiltrates at the lung bases bilaterally, consistent with pneumonia. Large sliding hiatal hernia containing the majority of the stomach. Cardiomegaly, aortic valve prosthetic, mitral annuloplasty, pacer wires. No pericardial effusion. Hepatobiliary: Gallbladder absent. Unremarkable liver, biliary tree, common duct. Pancreas: Moderately severe pancreatic atrophy. No ductal dilatation. No focal lesion. Spleen: Normal. Adrenal glands: Normal. Urogenital: Normal kidneys. Symmetric diaphragms. Normal collecting systems, ureters. Urinary bladder decompressed by Yang catheter. Uterus absent. No adnexal mass or cyst. significance is uncertain. Pelvic floor and sidewalls and retroperitoneum: There is nearly confluent induration in the presacral fat, lying between the sacrum and the posterior aspect of the rectum. This presacral soft tissue induration was not present on the prior study of 2013. There is no pelvic floor, sidewall or retroperitoneal lymphadenopathy. Vasculature: Moderate aortoiliac atherosclerotic calcifications. Stomach: As noted above, the majority of the stomach lies within the mediastinum, large sliding hilum hernia. No acute process. Small bowel and mesentery: No acute process. Large bowel: The appendix is surgically absent. Orally administered contrast has traversed the entirety of the small and large bowel. There is mild asymmetric thickening of the wall of the rectosigmoid junction, centered on axial series 3 image 94, coronal series 604 image 68, and sagittal series 605 image 93. Deshpande images are saved to the PACS archive. Clinical significance uncertain. This could represent mild inflammation or neoplasia. Free fluid or free air: None. CT/Abdomen/Pelvis WITH Contrast IMPRESSION: 1. Slender fluid collection associated with the left hip incision, probably representing seroma. Abscess cannot be entirely excluded. 2. Diffuse induration in the presacral fat of the pelvis, of uncertain significance. 3. Small focus of asymmetric thickening of the wall of the rectosigmoid, of uncertain significance. Consider follow-up colonoscopy. 4. Bilateral lower lobe pneumonia. Minimal left effusion. 5. Large sliding hiatal hernia containing the majority of the stomach. Electronically Signed: Gelacio Munoz, at 13:02 EDT Tel , Service support ,
--- NOTE | 2017-10-08 09:18 | CT_ITS ---
STUDY: CT CHEST WITH CONTRAST REASON FOR EXAM: Female, 82 years old. Fevers of unknown origin. Recent left hip replacement. Recent surgical site infection. RADIATION DOSAGE (If Supplied By Facility): (Chest, abdomen and pelvis), CTDIvol = ( 11.4+19.9+20.3 ) mGy, DLP = ( 1770.23 ) mGycm TECHNIQUE: Transaxial imaging was performed following intravenous administration of 100ml ml of Isovue 300 contrast material. 2-D MPR coronal and sagittal. Individualized dose optimization techniques were used for this CT. COMPARISON: CT abdomen and pelvis obtained simultaneously. X-ray chest 08/06/2017. FINDINGS: Supraclavicular: Small low-density thyroid nodules. Bilateral. Body wall soft tissues: No acute process. Osseous structures: No acute process. Median sternotomy. Mild kyphoscoliosis. Mild thoracic spondylosis. Mediastinum: Large sliding hiatal hernia containing the majority of the gastric fundus. Multiple mildly enlarged lymph nodes are present subcarinal, pretracheal, AP window, prevascular chains. The largest measures approximately 1.3 cm short axis. A component of acute reactive lymphadenopathy is suspected in the setting of pneumonia. Cardiovascular: Moderate cardiomegaly, no pericardial effusion, prominent three-vessel coronary calcifications, aortic valve prosthetic, mitral annuloplasty, pacer wires. No effusion. Aorta: Nonaneurysmal. Mild arch atherosclerosis. Pulmonary arteries: Nondilated with no large central pulmonary embolus. Lungs: There are extensive partially confluent infiltrates involving the right mid to lower lungs primarily, minimal at the apices, in a pattern consistent with infectious pneumonia. Minimal left effusion. CT/Chest WITH Contrast IMPRESSION: Bilateral multilobar pneumonia. Chronic cardiac disease. Large sliding hiatal hernia. Small thyroid nodules. Electronically Signed: Gelacio Munoz, at 13:07 EDT Tel , Service support ,
[2017-10-08] MEDS: traMADol 50 MG Tablet PO ×2 (09:34→21:39)
[2017-10-08] MEDS: Furosemide 40 MG Tablet PO ×2 (09:35→18:45)
[2017-10-08] MEDS: Carvedilol 25 MG Tablet PO ×2 (09:35→21:37)
[2017-10-08] MEDS: Aspirin E.C. 81 MG Tablet PO (09:35)
[2017-10-08] MEDS: Magnesium Oxide 400 MG Tablet PO (09:36)
[2017-10-08] MEDS: Lisinopril 40 MG Tablet PO (09:36)
[2017-10-08] MEDS: Famotidine 20 MG Tablet PO ×2 (09:36→21:37)
[2017-10-08] MEDS: guaiFENesin 1,200 MG Tablet 1200 MG PO ×2 (09:36→21:37)
[2017-10-08] MEDS: amLODIPine 5 MG Tablet PO (09:36)
[2017-10-08] MEDS: Menthol/Lanolin/Calamine/Znox 113 GM Tube 1 APPLIC TOPICAL ×2 (09:40→21:37)
[2017-10-08] MEDS: Ondansetron 4 MG/2 ML Vial IV (10:52)
[2017-10-08 11:24] LABS: International Normalized Ratio 1.2; Prothrombin Time (Protime)PT. 15.2 SECONDS (11.7-14.9)
[2017-10-08] MEDS: Acetaminophen 325 MG Tablet 650 MG PO (12:33)
--- NOTE | 2017-10-08 20:04 | PCM.PN.CARD ---
Subjectve: The patient remains in the ICU. She continues with concerns of her underlying chronic shortness of breath and dyspnea. She continues with noninvasive evaluation with CT scans. She has no acute complaints at this time. Objective: Vital Signs Temp Pulse Resp BP Pulse Ox 99.3 F H 83 19 H 103/62 87 10/08/17 14:00 10/08/17 19:00 10/08/17 14:00 10/08/17 14:00 10/08/17 15:57 Oxygen Flow Rate (L/min) 5 Oxygen Delivery Method Nasal Cannula Weight: 157 lb 13.616 oz Body Mass Index (BMI) 30.7 Intake and Output for Last 24 Hours 10/06/17 10/07/17 10/08/17 23:59 23:59 23:59 Intake Total 1407.5 / 1407.5 1231.1 / 1231.1 677 / 677 Output Total 1500 / 1500 700 / 700 725 / 725 Balance -92.5 / -92.5 531.1 / 531.1 -48 / -48 General: Awake, Cooperative, No Acute Distress, Ill Appearing Lungs: Diminished [place] Bases Cardiovascular: Regular Rhythm, Normal S1, Normal S2 Abdomen: Bowel Sounds Present, Soft Extremities: No edema 10/08/17 04:15: WBC 9.5, RBC 3.18 L, Hgb 9.6 L, Hct 30.7 L, MCV 96.5, MCH 30.2, MCHC 31.3 L, RDW 13.8, RDW Differential 46.9 H, Plt Count 342, MPV 10.5, Immature Gran % (Auto) 0.300, Neut % (Auto) 57.4, Lymph % (Auto) 17.9 L, [place] % (Auto) 10.0, Eos % (Auto) 14.1 H, Baso % (Auto) 0.3, Absolute Neuts (auto) 5.5, Total Counted Not Reportable 10/08/17 04:15: Sodium 140, Potassium 3.9, Chloride 103, Carbon Dioxide 28.0, Anion Gap 9, BUN 19 H, Creatinine 0.62, Est GFR (MDRD) Af Amer 118, Est GFR (MDRD) Non-Af 98, BUN/Creatinine Ratio 30.5 H, Glucose 96, Calcium 8.3 L 10/08/17 11:00: PT 15.2 H, INR 1.2 Rhythm: Electronic ventricular paced rhythm Medical Necessity - Tobacco Use Smoking Status: Never smoker Assessment/Plan 1. Atrial fibrillation At the present time she is on rate control therapy. She continues on oral beta-hal therapy. She has not been placed on antiarrhythmic therapy. He has been placed on anticoagulant therapy with Lovenox. He is being started on oral anticoagulant therapy with warfarin/Coumadin. Her INRs will need to be followed as they may fluctuate somewhat based upon her other medications, etc. 2. Paroxysmal ventricular tachycardia She reportedly has a history of paroxysmal ventricular tachycardia. She will continue to be monitored. She will continue medical management with her beta-hal therapy. Additional antiarrhythmic therapy can be used as deemed appropriate. She does have an ICD in place. 3. CHF She does appear to have signs and symptoms compatible with underlying CHF. This may be brought out by her underlying pulmonary disease process superimposed upon her cardiovascular disease process. Overall she appears to improve with her diuresis. Her IV diuretics have been changed to oral diuretics. If she begins to retain fluid she may need to be placed back on IV diuretics. 4. Cardiomyopathy The does have an underlying cardiomyopathy. There are concerns whether this is CAD related, valvular related, or another form of a cardiomyopathy. At the present time she will continue medical management. This will include agents such as nitrates as needed, beta-blockers, diuretics, afterload reducing agents, etc. 5. CAD status post RANDLE to the LAD At the time of her surgery she received a RANDLE to the LAD. She does have an indeterminate troponin. It is unclear as or whether this is a primary acute coronary syndrome event versus more likely being related to a type II event from supply demand mismatch secondary to her underlying acute pulmonary disease process superimposed upon her chronic cardiovascular disease process. At the moment would be reasonable to continue her medical management. She can be reassessed as deemed appropriate. 6. Status post aortic valve replacement-bioprosthetic The patient is status post the aforementioned surgery. She has undergone further evaluation with a transthoracic echocardiogram. Her aortic valve apparatus was stable. (Please see official/complete report) 7. ICD The patient does have an underlying ICD in place. It is a biventricular device. It is a [employer] DENTAL CERAMIST HELPER-D model # N164 serial #[id number] implanted on 05/20/2012. 8. Hypertension The patient will continue have her blood pressures monitored. She will be reassessed as needed. 9. Hyperlipidemia The patient will continue lipid-lowering therapy as deemed appropriate. 10. Pneumonia She did have a CT scan of the chest. Per the radiology report appears there are still concerns of pneumonia. She will continue evaluation care per internal medicine and pulmonology. Overall, from a cardiovascular standpoint, she is continuing conservative medical management at this time for her multiple cardiovascular conditions. There are no immediate plans for additional cardiovascular diagnostic studies, especially invasive, at this time. This note was generated with [employer] dictation software. It may contain incorrect words, spelling, and punctuation that were not noted in checking the note before signing.
--- NOTE | 2017-10-08 20:09 | PN.CARD_ITS ---
Subjectve: The patient remains in the ICU. She continues with concerns of her underlying chronic shortness of breath and dyspnea. She continues with noninvasive evaluation with CT scans. She has no acute complaints at this time. Objective: Vital Signs Temp Pulse Resp BP Pulse Ox 99.3 F H 83 19 H 103/62 87 10/08/17 14:00 10/08/17 19:00 10/08/17 14:00 10/08/17 14:00 10/08/17 15:57 Oxygen Flow Rate (L/min) 5 Oxygen Delivery Method Nasal Cannula Weight: 157 lb 13.616 oz Body Mass Index (BMI) 30.7 Intake and Output for Last 24 Hours 10/06/17 10/07/17 10/08/17 23:59 23:59 23:59 Intake Total 1407.5 / 1407.5 1231.1 / 1231.1 677 / 677 Output Total 1500 / 1500 700 / 700 725 / 725 Balance -92.5 / -92.5 531.1 / 531.1 -48 / -48 General: Awake, Cooperative, No Acute Distress, Ill Appearing Lungs: Diminished [place] Bases Cardiovascular: Regular Rhythm, Normal S1, Normal S2 Abdomen: Bowel Sounds Present, Soft Extremities: No edema 10/08/17 04:15: WBC 9.5, RBC 3.18 L, Hgb 9.6 L, Hct 30.7 L, MCV 96.5, MCH 30.2, MCHC 31.3 L, RDW 13.8, RDW Differential 46.9 H, Plt Count 342, MPV 10.5, Immature Gran % (Auto) 0.300, Neut % (Auto) 57.4, Lymph % (Auto) 17.9 L, [place] % (Auto) 10.0, Eos % (Auto) 14.1 H, Baso % (Auto) 0.3, Absolute Neuts (auto) 5.5, Total Counted Not Reportable 10/08/17 04:15: Sodium 140, Potassium 3.9, Chloride 103, Carbon Dioxide 28.0, Anion Gap 9, BUN 19 H, Creatinine 0.62, Est GFR (MDRD) Af Amer 118, Est GFR ( MDRD) Non-Af 98, BUN/Creatinine Ratio 30.5 H, Glucose 96, Calcium 8.3 L 10/08/17 11:00: PT 15.2 H, INR 1.2 Rhythm: Electronic ventricular paced rhythm Medical Necessity - Tobacco Use Smoking Status: Never smoker Assessment/Plan 1. Atrial fibrillation At the present time she is on rate control therapy. She continues on oral beta- hal therapy. She has not been placed on antiarrhythmic therapy. He has been placed on anticoagulant therapy with Lovenox. He is being started on oral anticoagulant therapy with warfarin/Coumadin. Her INRs will need to be followed as they may fluctuate somewhat based upon her other medications, etc. 2. Paroxysmal ventricular tachycardia She reportedly has a history of paroxysmal ventricular tachycardia. She will continue to be monitored. She will continue medical management with her beta- hal therapy. Additional antiarrhythmic therapy can be used as deemed appropriate. She does have an ICD in place. 3. CHF She does appear to have signs and symptoms compatible with underlying CHF. This may be brought out by her underlying pulmonary disease process superimposed upon her cardiovascular disease process. Overall she appears to improve with her diuresis. Her IV diuretics have been changed to oral diuretics. If she begins to retain fluid she may need to be placed back on IV diuretics. 4. Cardiomyopathy The does have an underlying cardiomyopathy. There are concerns whether this is CAD related, valvular related, or another form of a cardiomyopathy. At the present time she will continue medical management. This will include agents such as nitrates as needed, beta-blockers, diuretics, afterload reducing agents, etc. 5. CAD status post RANDLE to the LAD At the time of her surgery she received a RANDLE to the LAD. She does have an indeterminate troponin. It is unclear as or whether this is a primary acute coronary syndrome event versus more likely being related to a type II event from supply demand mismatch secondary to her underlying acute pulmonary disease process superimposed upon her chronic cardiovascular disease process. At the moment would be reasonable to continue her medical management. She can be reassessed as deemed appropriate. 6. Status post aortic valve replacement-bioprosthetic The patient is status post the aforementioned surgery. She has undergone further evaluation with a transthoracic echocardiogram. Her aortic valve apparatus was stable. (Please see official/complete report) 7. ICD The patient does have an underlying ICD in place. It is a biventricular device. It is a [employer] PARKING METER INSTALLER-D model # N164 serial #[id number] implanted on 05/20/2012. 8. Hypertension The patient will continue have her blood pressures monitored. She will be reassessed as needed. 9. Hyperlipidemia The patient will continue lipid-lowering therapy as deemed appropriate. 10. Pneumonia She did have a CT scan of the chest. Per the radiology report appears there are still concerns of pneumonia. She will continue evaluation care per internal medicine and pulmonology. Overall, from a cardiovascular standpoint, she is continuing conservative medical management at this time for her multiple cardiovascular conditions. There are no immediate plans for additional cardiovascular diagnostic studies, especially invasive, at this time. This note was generated with [employer] dictation software. It may contain incorrect words, spelling, and punctuation that were not noted in checking the note before signing.
[2017-10-08] MEDS: Atorvastatin Calcium 20 MG Tablet PO (21:37)
--- NOTE | 2017-10-08 22:29 | CPS ---
decreased FiO2 to 45%
[2017-10-09] VITALS (16 sets, daily range): BP systolic 91–116; BP diastolic 54–76; PULSE 75–88; RESP 12–31; TEMP 36.3–37.8; O2SAT 92–100
[2017-10-09] MEDS: Acetaminophen 325 MG Tablet 650 MG PO ×2 (02:56→15:11)
[2017-10-09] MEDS: CHLORHEXIDINE GLUC 2% CLOTH 1 EACH TOWELETTE TOPICAL (03:22)
--- NOTE | 2017-10-09 03:43 | CPS ---
decreased FIO2 to 35%
[2017-10-09] MEDS: 0.9% NaCl Peripheral Flush Adult/Peds IV (05:27)
[2017-10-09] MEDS: Piperacil/Tazobactam 3.375 GM/50 ML ML IV ×3 (05:27→22:38)
[2017-10-09] MEDS: Enoxaparin 80 MG/0.8 ML Syringe SC ×2 (05:27→18:27)
[2017-10-09 05:51] LABS: Absolute Lymphocyte Count 1.21 X10^3/ul (0.83-4.51); Absolute Neutrophil Count 5.4 X10^3/uL (2.0-7.7); Basophil# 0.02 X10^3/uL; Basophil% 0.2 % (0-1); Eosinophils% 10.8 % (0-5); Hemoglobin 8.7 g/dl (12.0-15.0); Lymphocyte # 1.21 X10^3/ul (4.0); Lymphocyte % 14.5 % (19-41); Mean Corp Hgb Conc 31.1 g/gl (32-36); Mean Corpuscular Volume 93.3 fL (81-99); Mean Platelet Vol. 10.2 fl (6.2-12.0); Monocyte# 0.79 X10^3/uL; Monocyte% 9.5 % (0-10); Neutrophil # 5.38 X10^3/uL (2.7-7.7); Neutrophil % 64.8 % (47-70); Platelet Count 323 K/mm3 (150-450); RBC Distribution Width CV 14.1 % (11.6-14.6); RBC Distribution Width SD 47.9 fl (35.1-43.9); White Blood Count 8.3 K/mm3 (4.4-11.0)
[2017-10-09 05:52] LABS: Anion Gap 7 (5-15); BUN 14 mg/dL (7-18); BUN/Creat Ratio 22.6 RATIO (10-20); Calcium,Total 8.4 mg/dL (8.5-10.1); Chloride 99 mmol/L (98-107); Creatinine, Serum 0.62 mg/dL (0.55-1.02); EST Glomerular Filtration Rate 98 mL/min (>60); Est Glom Filt Rate - Afr Amer 119 mL/min (>60); Estimated Creatinine Clearance 37.12 ml/min; Glucose 87 mg/dL (74-106); POSITIVE COUNT NO; POSITIVE DIFFERENTIAL NO; POSITIVE MORPHOLOGY NO; Potassium 3.7 mmol/L (3.5-5.1); Sodium Level 138 mmol/L (136-145)
[2017-10-09 06:10] LABS: International Normalized Ratio 1.2; Prothrombin Time (Protime)PT. 15.1 SECONDS (11.7-14.9)
--- NOTE | 2017-10-09 06:47 | PCM.PN.INT ---
Subjective: Patient did well overnight. No acute issues were reported. Patient did not have any fevers overnight and oxygen has been steadily decreased to his lows 2 L/min this morning. Patient does not report any dyspnea, chest pain, nausea or vomiting. General: Alert, Oriented x3, Cooperative, No apparent distress, - - Speaking in full sentences. Hard of hearing. HEENT: Atraumatic, PERRLA, EOMI, Normocephalic, - - No scleral icterus or injection Oral: Moist Mucosa, No Gingival or Mucosal Lesions/ Ulcerations Neck: Supple, No JVD, No Nodes, Trachea Midline Lungs: No rhonchi, No wheeze, No rales, Diminished, - - Symmetric expansion. No dullness to percussion. Cardiovascular: Normal S1, Normal S2, No murmurs, Irregular Rate, No rub noted, No Gallop Abdomen: Bowel Sounds Present, Soft, Non Tender, Non-Distended Extremities: No clubbing, No cyanosis, No edema, Capillary Refill Less than 3 Seconds Skin: No rashes, No breakdown Musculoskeletal: No Tenderness to Palpation of Joints or Extremities Lymphatic: No Cervical, Supraclavicular, or Inguinal Adenopathy Neurological: Cranial nerves II-XII grossly intact, Neuro grossly intact, Motor Exam 5/5 strength throughout Psych/Mental Status: Alert and oriented to time, place, person, mood and affect Vital Signs Temp Pulse Resp BP Pulse Ox 36.6 C 75 23 H 91/56 L 100 10/09/17 04:59 10/09/17 04:59 10/09/17 04:59 10/09/17 04:59 10/09/17 04:59 Oxygen Flow Rate (L/min) 4 Oxygen Delivery Method Nasal Cannula Weight: 71.5 kg Body Mass Index (BMI) 30.7 Intake and Output for Last 24 Hours 10/07/17 10/08/17 10/09/17 23:59 23:59 23:59 Intake Total 1231.1 / 1231.1 855 / 855 186 / 186 Output Total 700 / 700 1325 / 1325 150 / 150 Balance 531.1 / 531.1 -470 / -470 36 / 36 Labs (Last 48 Hours) 10/07/17 10/08/17 10/08/17 15:20 04:15 04:15 WBC 9.5 RBC 3.18 L Hgb 9.6 L Hct 30.7 L MCV 96.5 MCH 30.2 MCHC 31.3 L RDW 13.8 RDW Differential 46.9 H Plt Count 342 MPV 10.5 Immature Gran % (Auto) 0.300 Neut % (Auto) 57.4 Lymph % (Auto) 17.9 L [place] % (Auto) 10.0 Eos % (Auto) 14.1 H Baso % (Auto) 0.3 Absolute Neuts (auto) 5.5 Absolute Lymphs (auto) 1.70 Total Counted Not Reportable PT INR Sodium 140 Potassium 3.9 Chloride 103 Carbon Dioxide 28.0 Anion Gap 9 BUN 19 H Creatinine 0.62 Estim Creat Clear Calc 37.12 Est GFR (MDRD) Af Amer 118 Est GFR (MDRD) Non-Af 98 BUN/Creatinine Ratio 30.5 H Glucose 96 Calcium 8.3 L Urine Color Yellow Urine Clarity Clear Urine pH 6.5 Ur Specific [place] 1.010 Urine Protein 30 H Urine Glucose (UA) Normal Urine Ketones Negative Urine Occult Blood 50 H Urine Nitrite Negative Urine Bilirubin Negative Urine Urobilinogen Normal Ur Leukocyte Esterase 25 H Urine RBC 0-5 SEEN Urine WBC 0-5 SEEN Ur Squamous Epith Cells 0-5 SEEN Urine Bacteria 0 SEEN Urine Mucus 0 SEEN 10/08/17 10/09/17 10/09/17 11:00 05:20 05:20 WBC 8.3 RBC 3.00 L Hgb 8.7 L Hct 28.0 L MCV 93.3 MCH 29.0 MCHC 31.1 L RDW 14.1 RDW Differential 47.9 H Plt Count 323 MPV 10.2 Immature Gran % (Auto) 0.200 Neut % (Auto) 64.8 Lymph % (Auto) 14.5 L [place] % (Auto) 9.5 Eos % (Auto) 10.8 H Baso % (Auto) 0.2 Absolute Neuts (auto) 5.4 Absolute Lymphs (auto) 1.21 Total Counted Not Reportable PT 15.2 H 15.1 H INR 1.2 1.2 Sodium Potassium Chloride Carbon Dioxide Anion Gap BUN Creatinine Estim Creat Clear Calc Est GFR (MDRD) Af Amer Est GFR (MDRD) Non-Af BUN/Creatinine Ratio Glucose Calcium Urine Color Urine Clarity Urine pH Ur Specific [place] Urine Protein Urine Glucose (UA) Urine Ketones Urine Occult Blood Urine Nitrite Urine Bilirubin Urine Urobilinogen Ur Leukocyte Esterase Urine RBC Urine WBC Ur Squamous Epith Cells Urine Bacteria Urine Mucus 10/09/17 05:20 WBC RBC Hgb Hct MCV MCH MCHC RDW RDW Differential Plt Count MPV Immature Gran % (Auto) Neut % (Auto) Lymph % (Auto) [place] % (Auto) Eos % (Auto) Baso % (Auto) Absolute Neuts (auto) Absolute Lymphs (auto) Total Counted PT INR Sodium 138 Potassium 3.7 Chloride 99 Carbon Dioxide 32.0 Anion Gap 7 BUN 14 Creatinine 0.62 Estim Creat Clear Calc 37.12 Est GFR (MDRD) Af Amer 119 Est GFR (MDRD) Non-Af 98 BUN/Creatinine Ratio 22.6 H Glucose 87 Calcium 8.4 L Urine Color Urine Clarity Urine pH Ur Specific [place] Urine Protein Urine Glucose (UA) Urine Ketones Urine Occult Blood Urine Nitrite Urine Bilirubin Urine Urobilinogen Ur Leukocyte Esterase Urine RBC Urine WBC Ur Squamous Epith Cells Urine Bacteria Urine Mucus Clinical Impression(s) from Imaging Studies Abdomen/Pelvis CT 10/08/17 09:18 IMPRESSION: 1. Slender fluid collection associated with the left hip incision, probably representing seroma. Abscess cannot be entirely excluded. 2. Diffuse induration in the presacral fat of the pelvis, of uncertain significance. 3. Small focus of asymmetric thickening of the wall of the rectosigmoid, of uncertain significance. Consider follow-up colonoscopy. 4. Bilateral lower lobe pneumonia. Minimal left effusion. 5. Large sliding hiatal hernia containing the majority of the stomach. Electronically Signed: Gelacio Munoz, at 13:02 EDT Tel , Service support , Chest CT 10/08/17 09:18 IMPRESSION: Bilateral multilobar pneumonia. Chronic cardiac disease. Large sliding hiatal hernia. Small thyroid nodules. Electronically Signed: Gelacio Munoz, at 13:07 EDT Tel , Service support , Medical Necessity - Tobacco Use Smoking Status: Never smoker Assessment/Plan All Active Problems (Last Updated 06/23/17 @ 17:11 by Too H Roof, NUCLEAR AUXILIARY OPERATOR-C) Surgical site infection (Resolved) multilobar HCAP (Acute) Acute respiratory failure with hypoxia (Acute) CHF (congestive heart failure) (Acute) Neck swelling (Acute) Accelerated hypertension (Resolved) Chest pain (Resolved) DVT of lower extremity (deep venous thrombosis) (Resolved) Nephrolithiasis (Resolved) RECOMMENDATIONS: 1. Consider infectious disease consult for fever of unknown origin 2. Continue intermittent BiPAP, with breaks as tolerated. Goal to maintain oxygen saturations at or above 90%. 3. Continue Lasix at current dosing 4. Rate/rhythm control per cardiology recommendations 5. Encourage incentive spirometer use and mobilize patient as tolerated 6. Walking oximetry prior to discharge IMPRESSIONS: 1. Acute hypoxemic respiratory failure, likely secondary to healthcare associated pneumonia Patient is much improved from a respiratory standpoint. Bianchi CT yesterday did show a large sliding hiatal hernia, but no other obvious sources of fever. Patient did not have any fever overnight. Consideration for an infectious disease consult for fever of unknown origin and guidance on further antibiotics would be recommended. Patient should have a walking oximetry prior to discharge. Rate has been well controlled. 2. Atrial fibrillation with RVR/Personal history of coronary artery disease status post CABG/aortic valve disease status post replacement/ICD in situ Continue rate/rhythm control therapy per cardiology recommendations. Patient is not anticoagulated at this time. Patient transition to p.o. Lasix yesterday. Slight increase in I's and O's. Will need to watch closely. Body weight is actually down. 3. Hypokalemia Repleted previously. Recheck levels in the morning. 4. 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 This appears to have resolved at this time. 5. Advanced age/neuropathy/hypertension/hyperlipidemia/GERD Complicates care, management, recovery and prognosis. The patient is a documented DNR CCA on file. Physical therapy to continue to work with patient. This note was generated with [employer] dictation software. It may contain incorrect words, spelling, and punctuation that were not noted in checking the note before signing. Code Visit Inpatient E&M: 81030 Subs Hosp L2
--- NOTE | 2017-10-09 06:57 | PN_ITS ---
Subjective: Patient did well overnight. No acute issues were reported. Patient did not have any fevers overnight and oxygen has been steadily decreased to his lows 2 L /min this morning. Patient does not report any dyspnea, chest pain, nausea or vomiting. General: Alert, Oriented x3, Cooperative, No apparent distress, - - Speaking in full sentences. Hard of hearing. HEENT: Atraumatic, PERRLA, EOMI, Normocephalic, - - No scleral icterus or injection Oral: Moist Mucosa, No Gingival or Mucosal Lesions/ Ulcerations Neck: Supple, No JVD, No Nodes, Trachea Midline Lungs: No rhonchi, No wheeze, No rales, Diminished, - - Symmetric expansion. No dullness to percussion. Cardiovascular: Normal S1, Normal S2, No murmurs, Irregular Rate, No rub noted, No Gallop Abdomen: Bowel Sounds Present, Soft, Non Tender, Non-Distended Extremities: No clubbing, No cyanosis, No edema, Capillary Refill Less than 3 Seconds Skin: No rashes, No breakdown Musculoskeletal: No Tenderness to Palpation of Joints or Extremities Lymphatic: No Cervical, Supraclavicular, or Inguinal Adenopathy Neurological: Cranial nerves II-XII grossly intact, Neuro grossly intact, Motor Exam 5/5 strength throughout Psych/Mental Status: Alert and oriented to time, place, person, mood and affect Vital Signs Temp Pulse Resp BP Pulse Ox 36.6 C 75 23 H 91/56 L 100 10/09/17 04:59 10/09/17 04:59 10/09/17 04:59 10/09/17 04:59 10/09/17 04:59 Oxygen Flow Rate (L/min) 4 Oxygen Delivery Method Nasal Cannula Weight: 71.5 kg Body Mass Index (BMI) 30.7 Intake and Output for Last 24 Hours 10/07/17 10/08/17 10/09/17 23:59 23:59 23:59 Intake Total 1231.1 / 1231.1 855 / 855 186 / 186 Output Total 700 / 700 1325 / 1325 150 / 150 Balance 531.1 / 531.1 -470 / -470 36 / 36 Labs (Last 48 Hours) 10/07/17 10/08/17 10/08/17 15:20 04:15 04:15 WBC 9.5 RBC 3.18 L Hgb 9.6 L Hct 30.7 L MCV 96.5 MCH 30.2 MCHC 31.3 L RDW 13.8 RDW Differential 46.9 H Plt Count 342 MPV 10.5 Immature Gran % (Auto) 0.300 Neut % (Auto) 57.4 Lymph % (Auto) 17.9 L [place] % (Auto) 10.0 Eos % (Auto) 14.1 H Baso % (Auto) 0.3 Absolute Neuts (auto) 5.5 Absolute Lymphs (auto) 1.70 Total Counted Not Reportable PT INR Sodium 140 Potassium 3.9 Chloride 103 Carbon Dioxide 28.0 Anion Gap 9 BUN 19 H Creatinine 0.62 Estim Creat Clear Calc 37.12 Est GFR (MDRD) Af Amer 118 Est GFR (MDRD) Non-Af 98 BUN/Creatinine Ratio 30.5 H Glucose 96 Calcium 8.3 L Urine Color Yellow Urine Clarity Clear Urine pH 6.5 Ur Specific [place] 1.010 Urine Protein 30 H Urine Glucose (UA) Normal Urine Ketones Negative Urine Occult Blood 50 H Urine Nitrite Negative Urine Bilirubin Negative Urine Urobilinogen Normal Ur Leukocyte Esterase 25 H Urine RBC 0-5 SEEN Urine WBC 0-5 SEEN Ur Squamous Epith Cells 0-5 SEEN Urine Bacteria 0 SEEN Urine Mucus 0 SEEN 10/08/17 10/09/17 10/09/17 11:00 05:20 05:20 WBC 8.3 RBC 3.00 L Hgb 8.7 L Hct 28.0 L MCV 93.3 MCH 29.0 MCHC 31.1 L RDW 14.1 RDW Differential 47.9 H Plt Count 323 MPV 10.2 Immature Gran % (Auto) 0.200 Neut % (Auto) 64.8 Lymph % (Auto) 14.5 L [place] % (Auto) 9.5 Eos % (Auto) 10.8 H Baso % (Auto) 0.2 Absolute Neuts (auto) 5.4 Absolute Lymphs (auto) 1.21 Total Counted Not Reportable PT 15.2 H 15.1 H INR 1.2 1.2 Sodium Potassium Chloride Carbon Dioxide Anion Gap BUN Creatinine Estim Creat Clear Calc Est GFR (MDRD) Af Amer Est GFR (MDRD) Non-Af BUN/Creatinine Ratio Glucose Calcium Urine Color Urine Clarity Urine pH Ur Specific [place] Urine Protein Urine Glucose (UA) Urine Ketones Urine Occult Blood Urine Nitrite Urine Bilirubin Urine Urobilinogen Ur Leukocyte Esterase Urine RBC Urine WBC Ur Squamous Epith Cells Urine Bacteria Urine Mucus 10/09/17 05:20 WBC RBC Hgb Hct MCV MCH MCHC RDW RDW Differential Plt Count MPV Immature Gran % (Auto) Neut % (Auto) Lymph % (Auto) [place] % (Auto) Eos % (Auto) Baso % (Auto) Absolute Neuts (auto) Absolute Lymphs (auto) Total Counted PT INR Sodium 138 Potassium 3.7 Chloride 99 Carbon Dioxide 32.0 Anion Gap 7 BUN 14 Creatinine 0.62 Estim Creat Clear Calc 37.12 Est GFR (MDRD) Af Amer 119 Est GFR (MDRD) Non-Af 98 BUN/Creatinine Ratio 22.6 H Glucose 87 Calcium 8.4 L Urine Color Urine Clarity Urine pH Ur Specific [place] Urine Protein Urine Glucose (UA) Urine Ketones Urine Occult Blood Urine Nitrite Urine Bilirubin Urine Urobilinogen Ur Leukocyte Esterase Urine RBC Urine WBC Ur Squamous Epith Cells Urine Bacteria Urine Mucus Clinical Impression(s) from Imaging Studies Abdomen/Pelvis CT 10/08/17 09:18 IMPRESSION: 1. Slender fluid collection associated with the left hip incision, probably representing seroma. Abscess cannot be entirely excluded. 2. Diffuse induration in the presacral fat of the pelvis, of uncertain significance. 3. Small focus of asymmetric thickening of the wall of the rectosigmoid, of uncertain significance. Consider follow-up colonoscopy. 4. Bilateral lower lobe pneumonia. Minimal left effusion. 5. Large sliding hiatal hernia containing the majority of the stomach. Electronically Signed: Gelacio Munoz, at 13:02 EDT Tel , Service support , Chest CT 10/08/17 09:18 IMPRESSION: Bilateral multilobar pneumonia. Chronic cardiac disease. Large sliding hiatal hernia. Small thyroid nodules. Electronically Signed: Gelacio Munoz, at 13:07 EDT Tel , Service support , Medical Necessity - Tobacco Use Smoking Status: Never smoker Assessment/Plan All Active Problems (Last Updated 06/23/17 @ 17:11 by Too H Roof, ENROLLMENT CONSULTANT-C) Surgical site infection (Resolved) multilobar HCAP (Acute) Acute respiratory failure with hypoxia (Acute) CHF (congestive heart failure) (Acute) Neck swelling (Acute) Accelerated hypertension (Resolved) Chest pain (Resolved) DVT of lower extremity (deep venous thrombosis) (Resolved) Nephrolithiasis (Resolved) RECOMMENDATIONS: 1. Consider infectious disease consult for fever of unknown origin 2. Continue intermittent BiPAP, with breaks as tolerated. Goal to maintain oxygen saturations at or above 90%. 3. Continue Lasix at current dosing 4. Rate/rhythm control per cardiology recommendations 5. Encourage incentive spirometer use and mobilize patient as tolerated 6. Walking oximetry prior to discharge IMPRESSIONS: 1. Acute hypoxemic respiratory failure, likely secondary to healthcare associated pneumonia Patient is much improved from a respiratory standpoint. Bianchi CT yesterday did show a large sliding hiatal hernia, but no other obvious sources of fever. Patient did not have any fever overnight. Consideration for an infectious disease consult for fever of unknown origin and guidance on further antibiotics would be recommended. Patient should have a walking oximetry prior to discharge. Rate has been well controlled. 2. Atrial fibrillation with RVR/Personal history of coronary artery disease status post CABG/aortic valve disease status post replacement/ICD in situ Continue rate/rhythm control therapy per cardiology recommendations. Patient is not anticoagulated at this time. Patient transition to p.o. Lasix yesterday. Slight increase in I's and O's. Will need to watch closely. Body weight is actually down. 3. Hypokalemia Repleted previously. Recheck levels in the morning. 4. 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 This appears to have resolved at this time. 5. Advanced age/neuropathy/hypertension/hyperlipidemia/GERD Complicates care, management, recovery and prognosis. The patient is a documented DNR CCA on file. Physical therapy to continue to work with patient. This note was generated with [employer] dictation software. It may contain incorrect words, spelling, and punctuation that were not noted in checking the note before signing. Code Visit Inpatient E&M: 97514 Subs Hosp L2
[2017-10-09] MEDS: Aspirin E.C. 81 MG Tablet PO (09:33)
[2017-10-09] MEDS: Furosemide 40 MG Tablet PO ×2 (09:33→18:26)
[2017-10-09] MEDS: Magnesium Oxide 400 MG Tablet PO (09:33)
[2017-10-09] MEDS: Lisinopril 40 MG Tablet PO (09:33)
[2017-10-09] MEDS: Carvedilol 25 MG Tablet PO ×2 (09:34→22:40)
[2017-10-09] MEDS: Famotidine 20 MG Tablet PO ×2 (09:34→22:39)
[2017-10-09] MEDS: guaiFENesin 1,200 MG Tablet 1200 MG PO ×2 (09:34→22:40)
[2017-10-09] MEDS: amLODIPine 5 MG Tablet PO (09:34)
[2017-10-09] MEDS: Menthol/Lanolin/Calamine/Znox 113 GM Tube 1 APPLIC TOPICAL ×2 (09:35→22:39)
--- NOTE | 2017-10-09 10:09 | PCM.PN.CARD ---
Subjectve: Patient doing well, no acute distress. Telemetry atrial fibrillation with paced ventricular rhythm. Objective: Vital Signs Temp Pulse Resp BP Pulse Ox 97.3 F L 85 20 H 116/56 L 100 10/09/17 07:25 10/09/17 08:00 10/09/17 07:25 10/09/17 07:25 10/09/17 07:26 Oxygen Flow Rate (L/min) 2 Oxygen Delivery Method Nasal Cannula Weight: 157 lb 10.088 oz Body Mass Index (BMI) 30.7 Intake and Output for Last 24 Hours 10/07/17 10/08/17 10/09/17 23:59 23:59 23:59 Intake Total 1231.1 / 1231.1 855 / 855 186 / 186 Output Total 700 / 700 1325 / 1325 150 / 150 Balance 531.1 / 531.1 -470 / -470 36 / 36 General: Awake, Alert, Oriented x 3 HEENT: PERRL, EOMI, Sclera Non Icteric Neck: Supple, Good ROM, No Lymph Node Enlargement Lungs: Clear to auscultation Cardiovascular: Irregular Rhythm, Normal S1, Normal S2, No Murmurs, No Rubs, No Gallops Vascular: No Carotid Bruits, Normal Femoral Pulses, Normal Radial Pulses, Normal Dorsalis Pedal Pulse, Normal Posterior Tibial Pulses Abdomen: Bowel Sounds Present, Soft, Non Tender, No HSM, No Organomegaly Extremities: No Cyanosis, No Clubbing, No edema Neurological: No Focal Motor or Sensory Deficit 10/08/17 11:00: PT 15.2 H, INR 1.2 10/09/17 05:20: WBC 8.3, RBC 3.00 L, Hgb 8.7 L, Hct 28.0 L, MCV 93.3, MCH 29.0, MCHC 31.1 L, RDW 14.1, RDW Differential 47.9 H, Plt Count 323, MPV 10.2, Immature Gran % (Auto) 0.200, Neut % (Auto) 64.8, Lymph % (Auto) 14.5 L, [place] % (Auto) 9.5, Eos % (Auto) 10.8 H, Baso % (Auto) 0.2, Absolute Neuts (auto) 5.4, Total Counted Not Reportable 10/09/17 05:20: PT 15.1 H, INR 1.2 10/09/17 05:20: Sodium 138, Potassium 3.7, Chloride 99, Carbon Dioxide 32.0, Anion Gap 7, BUN 14, Creatinine 0.62, Est GFR (MDRD) Af Amer 119, Est GFR (MDRD) Non-Af 98, BUN/Creatinine Ratio 22.6 H, Glucose 87, Calcium 8.4 L Rhythm: EKG: ECHO: Stress Test: Cardiac Cath: PCI: CT Surgery: Holter monitor: EPS: PPM: CXR: Chest CT Scan: Medical Necessity - Tobacco Use Smoking Status: Never smoker Assessment/Plan 1. Atrial fibrillation: Patient's heart rate appears to be fairly well-controlled with beta-hal therapy. She has been loaded with Coumadin therapy. Her INRs between 2.0 and 3.0. Continue Lovenox until INR is therapeutic. 2. Paroxysmal ventricular tachycardia She reportedly has a history of paroxysmal ventricular tachycardia. She will continue to be monitored. She will continue medical management with her beta-hal therapy. No ventricular tachycardia detected on telemetry last evening. We will hold on antiarrhythmic therapy at this time. She does have an ICD in place. 3. CHF She does appear to have signs and symptoms compatible with underlying CHF. This may be brought out by her underlying pulmonary disease process superimposed upon her cardiovascular disease process. Overall she appears to improve with her diuresis. Her IV diuretics have been changed to oral diuretics. If she begins to retain fluid she may need to be placed back on IV diuretics. 4. Cardiomyopathy The does have an underlying cardiomyopathy. There are concerns whether this is CAD related, valvular related, or another form of a cardiomyopathy. At the present time she will continue medical management. This will include agents such as nitrates as needed, beta-blockers, diuretics, afterload reducing agents, etc. 5. CAD status post RANDLE to the LAD At the time of her surgery she received a RANDLE to the LAD. She does have an indeterminate troponin. It is unclear as or whether this is a primary acute coronary syndrome event versus more likely being related to a type II event from supply demand mismatch secondary to her underlying acute pulmonary disease process superimposed upon her chronic cardiovascular disease process. At the moment would be reasonable to continue her medical management. She can be reassessed as deemed appropriate. No plans for catheterization or stress test at this time 6. Status post aortic valve replacement-bioprosthetic The patient is status post the aforementioned surgery. She has undergone further evaluation with a transthoracic echocardiogram. Her aortic valve apparatus was stable. (Please see official/complete report) 7. ICD The patient does have an underlying ICD in place. It is a biventricular device. It is a [employer] Incepta BAR ATTENDANT-D model # N164 serial #[id number] implanted on 05/20/2012. 8. Hypertension The patient will continue have her blood pressures monitored. She will be reassessed as needed. 9. Hyperlipidemia The patient will continue lipid-lowering therapy as deemed appropriate. 10. Pneumonia She did have a CT scan of the chest. Per the radiology report appears there are still concerns of pneumonia. She will continue evaluation care per internal medicine and pulmonology. Overall, from a cardiovascular standpoint, she is continuing conservative medical management at this time for her multiple cardiovascular conditions. There are no immediate plans for additional cardiovascular diagnostic studies, especially invasive, at this time. Code Visit Inpatient E&M: 48917 [facility] Hosp L2
--- NOTE | 2017-10-09 10:14 | PN.CARD_ITS ---
Subjectve: Patient doing well, no acute distress. Telemetry atrial fibrillation with paced ventricular rhythm. Objective: Vital Signs Temp Pulse Resp BP Pulse Ox 97.3 F L 85 20 H 116/56 L 100 10/09/17 07:25 10/09/17 08:00 10/09/17 07:25 10/09/17 07:25 10/09/17 07:26 Oxygen Flow Rate (L/min) 2 Oxygen Delivery Method Nasal Cannula Weight: 157 lb 10.088 oz Body Mass Index (BMI) 30.7 Intake and Output for Last 24 Hours 10/07/17 10/08/17 10/09/17 23:59 23:59 23:59 Intake Total 1231.1 / 1231.1 855 / 855 186 / 186 Output Total 700 / 700 1325 / 1325 150 / 150 Balance 531.1 / 531.1 -470 / -470 36 / 36 General: Awake, Alert, Oriented x 3 HEENT: PERRL, EOMI, Sclera Non Icteric Neck: Supple, Good ROM, No Lymph Node Enlargement Lungs: Clear to auscultation Cardiovascular: Irregular Rhythm, Normal S1, Normal S2, No Murmurs, No Rubs, No Gallops Vascular: No Carotid Bruits, Normal Femoral Pulses, Normal Radial Pulses, Normal Dorsalis Pedal Pulse, Normal Posterior Tibial Pulses Abdomen: Bowel Sounds Present, Soft, Non Tender, No HSM, No Organomegaly Extremities: No Cyanosis, No Clubbing, No edema Neurological: No Focal Motor or Sensory Deficit 10/08/17 11:00: PT 15.2 H, INR 1.2 10/09/17 05:20: WBC 8.3, RBC 3.00 L, Hgb 8.7 L, Hct 28.0 L, MCV 93.3, MCH 29.0, MCHC 31.1 L, RDW 14.1, RDW Differential 47.9 H, Plt Count 323, MPV 10.2, Immature Gran % (Auto) 0.200, Neut % (Auto) 64.8, Lymph % (Auto) 14.5 L, [place] % (Auto) 9.5, Eos % (Auto) 10.8 H, Baso % (Auto) 0.2, Absolute Neuts (auto) 5.4, Total Counted Not Reportable 10/09/17 05:20: PT 15.1 H, INR 1.2 10/09/17 05:20: Sodium 138, Potassium 3.7, Chloride 99, Carbon Dioxide 32.0, Anion Gap 7, BUN 14, Creatinine 0.62, Est GFR (MDRD) Af Amer 119, Est GFR (MDRD ) Non-Af 98, BUN/Creatinine Ratio 22.6 H, Glucose 87, Calcium 8.4 L Rhythm: EKG: ECHO: Stress Test: Cardiac Cath: PCI: CT Surgery: Holter monitor: EPS: PPM: CXR: Chest CT Scan: Medical Necessity - Tobacco Use Smoking Status: Never smoker Assessment/Plan 1. Atrial fibrillation: Patient's heart rate appears to be fairly well- controlled with beta-hal therapy. She has been loaded with Coumadin therapy. Her INRs between 2.0 and 3.0. Continue Lovenox until INR is therapeutic. 2. Paroxysmal ventricular tachycardia She reportedly has a history of paroxysmal ventricular tachycardia. She will continue to be monitored. She will continue medical management with her beta- hal therapy. No ventricular tachycardia detected on telemetry last evening. We will hold on antiarrhythmic therapy at this time. She does have an ICD in place. 3. CHF She does appear to have signs and symptoms compatible with underlying CHF. This may be brought out by her underlying pulmonary disease process superimposed upon her cardiovascular disease process. Overall she appears to improve with her diuresis. Her IV diuretics have been changed to oral diuretics. If she begins to retain fluid she may need to be placed back on IV diuretics. 4. Cardiomyopathy The does have an underlying cardiomyopathy. There are concerns whether this is CAD related, valvular related, or another form of a cardiomyopathy. At the present time she will continue medical management. This will include agents such as nitrates as needed, beta-blockers, diuretics, afterload reducing agents, etc. 5. CAD status post RANDLE to the LAD At the time of her surgery she received a RANDLE to the LAD. She does have an indeterminate troponin. It is unclear as or whether this is a primary acute coronary syndrome event versus more likely being related to a type II event from supply demand mismatch secondary to her underlying acute pulmonary disease process superimposed upon her chronic cardiovascular disease process. At the moment would be reasonable to continue her medical management. She can be reassessed as deemed appropriate. No plans for catheterization or stress test at this time 6. Status post aortic valve replacement-bioprosthetic The patient is status post the aforementioned surgery. She has undergone further evaluation with a transthoracic echocardiogram. Her aortic valve apparatus was stable. (Please see official/complete report) 7. ICD The patient does have an underlying ICD in place. It is a biventricular device. It is a [employer]-D model # N164 serial #[id number] implanted on 05/20/2012. 8. Hypertension The patient will continue have her blood pressures monitored. She will be reassessed as needed. 9. Hyperlipidemia The patient will continue lipid-lowering therapy as deemed appropriate. 10. Pneumonia She did have a CT scan of the chest. Per the radiology report appears there are still concerns of pneumonia. She will continue evaluation care per internal medicine and pulmonology. Overall, from a cardiovascular standpoint, she is continuing conservative medical management at this time for her multiple cardiovascular conditions. There are no immediate plans for additional cardiovascular diagnostic studies, especially invasive, at this time. Code Visit Inpatient E&M: 27899 [facility] Hosp L2
--- NOTE | 2017-10-09 10:21 | PCM.PN.HOSP ---
Patient Problems: Active and Suspected Problems (Last Updated 06/23/17 @ 17:11 by Too Cote NP-C) multilobar HCAP (Acute) Acute respiratory failure with hypoxia (Acute) CHF (congestive heart failure) (Acute) Subjective: Breathing better. Decreased oxygen requirements. Vitals/I&O's: Vital Signs Temp Pulse Resp BP Pulse Ox 36.3 C L 85 20 H 116/56 L 100 10/09/17 07:25 10/09/17 08:00 10/09/17 07:25 10/09/17 07:25 10/09/17 07:26 Oxygen Flow Rate (L/min) 2 Oxygen Delivery Method Nasal Cannula Weight: 71.5 kg Body Mass Index (BMI) 30.7 Intake and Output for Last 24 Hours 10/07/17 10/08/17 10/09/17 23:59 23:59 23:59 Intake Total 1231.1 / 1231.1 855 / 855 186 / 186 Output Total 700 / 700 1325 / 1325 150 / 150 Balance 531.1 / 531.1 -470 / -470 36 / 36 General: Alert, Cooperative, No apparent distress HEENT: Atraumatic, TM's Clear Neck: No Nodes, Thyroid Normal Size and Texture Lungs: Normal air movement, - - Bilateral crackles Cardiovascular: Regular rate, Regular Rhythm, Normal S1, Normal S2 Abdomen: Bowel Sounds Present, Soft, Non Tender, Non-Distended, No Hepato-splenomegaly Extremities: No edema, No Calf Tenderness Skin: No rashes, No breakdown Psych/Mental Status: Normal Affect, Appropriate Microbiology Past 72 Hours 10/07/17 15:20 Urine Catheter - Yang Urine Culture - Preliminary Culture exhibits no growth. 10/01/17 00:06 Blood Culture (Wb) #2 - Left Hand Blood Culture - Final No growth in 5 days. Laboratory Results 10/08/17 11:00: PT 15.2 H, INR 1.2 10/09/17 05:20: WBC 8.3, RBC 3.00 L, Hgb 8.7 L, Hct 28.0 L, MCV 93.3, MCH 29.0, MCHC 31.1 L, RDW 14.1, RDW Differential 47.9 H, Plt Count 323, MPV 10.2, Immature Gran % (Auto) 0.200, Neut % (Auto) 64.8, Lymph % (Auto) 14.5 L, [place] % (Auto) 9.5, Eos % (Auto) 10.8 H, Baso % (Auto) 0.2, Absolute Neuts (auto) 5.4, Absolute Lymphs (auto) 1.21, Total Counted Not Reportable 10/09/17 05:20: PT 15.1 H, INR 1.2 10/09/17 05:20: Sodium 138, Potassium 3.7, Chloride 99, Carbon Dioxide 32.0, Anion Gap 7, BUN 14, Creatinine 0.62, Estim Creat Clear Calc 37.12, Est GFR (MDRD) Af Amer 119, Est GFR (MDRD) Non-Af 98, BUN/Creatinine Ratio 22.6 H, Glucose 87, Calcium 8.4 L Current Medications Acetaminophen (Tylenol) 650 mg PO Q4H PRN PRN PRN Reason: FEVER Last Admin: 10/09/17 02:56 Dose: 650 mg Acetaminophen (Tylenol) 650 mg RECTAL Q6H PRN PRN PRN Reason: temp>101 / Pain Last Admin: 10/04/17 19:46 Dose: 650 mg Albuterol Sulfate (Ventolin Aerosols) 2.5 mg INHALATION Q2H PRN PRN PRN Reason: SHORTNESS OF BREATH Last Admin: 10/02/17 20:26 Dose: 2.5 mg Amlodipine Besylate (Norvasc) 5 mg PO DAILY [facility] Last Admin: 10/09/17 09:34 Dose: 5 mg Aspirin (Ecotrin) 81 mg PO DAILY [facility] Last Admin: 10/09/17 09:33 Dose: 81 mg Atorvastatin Calcium (Lipitor) 20 mg PO QHS [facility] Last Admin: 10/08/17 21:37 Dose: 20 mg Calamine/Phenol (Calmoseptine Ointment) 1 applic TOPICAL BID [facility] PRN Reason: Protocol Last Admin: 10/09/17 09:35 Dose: 1 applicatio Carvedilol (Coreg) 25 mg PO BID [facility] Last Admin: 10/09/17 09:34 Dose: 25 mg Chlorhexidine Gluconate () 1 each TOPICAL DAILY [facility] Last Admin: 10/09/17 03:22 Dose: 1 each Enoxaparin Sodium (Lovenox) 80 mg 1 mg/kg (80 mg) SC Q12@0600,1800 [facility] Last Admin: 10/09/17 05:27 Dose: 80 mg Famotidine (Pepcid) 20 mg PO BID [facility] Last Admin: 10/09/17 09:34 Dose: 20 mg Furosemide (Lasix) 40 mg PO BID@1000,1800 [facility] Last Admin: 10/09/17 09:33 Dose: 40 mg Guaifenesin (Mucinex) 1,200 mg PO BID [facility] Last Admin: 10/09/17 09:34 Dose: 1,200 mg Piperacillin Sod/Tazobactam Sod (Zosyn) 3.375 gm in 50 mls @ 12.5 mls/hr IV Q8 [facility] Last Admin: 10/09/17 05:27 Dose: 12.5 mls/hr Labetalol HCl (Trandate) 10 mg IV Q4H PRN PRN PRN Reason: HR > 120 Last Admin: 10/02/17 23:06 Dose: 10 mg Lisinopril (Zestril) 40 mg PO DAILY [facility] Last Admin: 10/09/17 09:33 Dose: 40 mg Magnesium Oxide (Mag-Ox 400) 400 mg PO DAILY [facility] Last Admin: 10/09/17 09:33 Dose: 400 mg Nitroglycerin (Nitrostat) 0.4 mg SUBLINGUAL Q5M PRN PRN Reason: Chest Pain Nutritional Formula (Lactose Free) (Ensure Clear) 120 ml PO 4X/DAY [facility] Last Admin: 10/09/17 09:43 Dose: 120 ml Ondansetron HCl (Zofran) 4 mg IV Q8H PRN PRN PRN Reason: NAUSEA Last Admin: 10/08/17 10:52 Dose: 4 mg Senna/Docusate Sodium (Senokot-S, Dilia-Colace) 2 tablet PO BID PRN PRN PRN Reason: Constipation Sodium Chloride () 5 - 30 ml IV UD PRN PRN Reason: SALINE FLUSH Last Admin: 10/09/17 05:27 Dose: 10 ml Tramadol HCl (Ultram) 50 mg PO Q6H PRN PRN PRN Reason: PAIN Last Admin: 10/08/17 21:39 Dose: 50 mg Warfarin Sodium (Coumadin (Pbkc)) 5 mg PO DAILY@1700 [facility] Last Admin: 10/08/17 18:46 Dose: 5 mg Medical Necessity - Tobacco Use Smoking Status: Never smoker Assessment/Plan All Active Problems (Last Updated 06/23/17 @ 17:11 by Too Cote, [employer]-C) Surgical site infection (Resolved) multilobar HCAP (Acute) Acute respiratory failure with hypoxia (Acute) CHF (congestive heart failure) (Acute) Neck swelling (Acute) Accelerated hypertension (Resolved) Chest pain (Resolved) DVT of lower extremity (deep venous thrombosis) (Resolved) Nephrolithiasis (Resolved) 1. Acute hypoxic respiratory failure Multifactorial, due to CHF, pneumonia plus minus acute lung injury Improved today and patient is tolerating being off of BiPAP, at least for now. Appreciate input by critical care medicine CXR improving tolerating nasal cannula at this time. 2. Suspected gram-negative pneumonia/healthcare acquired pneumonia Sputum culture growing out coag negative staph, which I feel is probably contaminant. Continue with pulmonary toilet Continue with Zosyn 3. Heart failure with preserved ejection fraction Ejection fraction of 70% from left heart catheterization from September 24, 2015 Lasix transitioned over to oral. Continue with lisinopril and carvedilol 4. Atrial fibrillation with RVR Currently rate controlled On carvedilol. Continue with carvedilol for now. Early on weight-based Lovenox for anticoagulation at this time. given bioprsthetic AV, start coumadin 5. Non-STEMI Troponins were as high as 0.216 Suspect demand ischemia and given the patient's respiratory failure, pneumonia and heart failure. Troponin on was down to 0.073. Medical management for now. On ASA, coreg, lisinopril, statin 6. DVT prophylaxis with anticoagulation. 7. Fevers resolved ID on consult CT chest showed pneumonia. CT abd/pelvis showed seroma v abscess adjacent to left him incision Cortext to Dr. Parr to review CT A/P if any concern from an orthopaedic perspective. 8. Disposition: eventually to SNF. await recs from ID and ortho. Anticipate discharge in next 24-48h. Code Visit Inpatient E&M: 65303 Subs Hosp L2
--- NOTE | 2017-10-09 10:26 | PN_ITS ---
Patient Problems: Active and Suspected Problems (Last Updated 06/23/17 @ 17:11 by Too Cote NP- C) multilobar HCAP (Acute) Acute respiratory failure with hypoxia (Acute) CHF (congestive heart failure) (Acute) Subjective: Breathing better. Decreased oxygen requirements. Vitals/I&O's: Vital Signs Temp Pulse Resp BP Pulse Ox 36.3 C L 85 20 H 116/56 L 100 10/09/17 07:25 10/09/17 08:00 10/09/17 07:25 10/09/17 07:25 10/09/17 07:26 Oxygen Flow Rate (L/min) 2 Oxygen Delivery Method Nasal Cannula Weight: 71.5 kg Body Mass Index (BMI) 30.7 Intake and Output for Last 24 Hours 10/07/17 10/08/17 10/09/17 23:59 23:59 23:59 Intake Total 1231.1 / 1231.1 855 / 855 186 / 186 Output Total 700 / 700 1325 / 1325 150 / 150 Balance 531.1 / 531.1 -470 / -470 36 / 36 General: Alert, Cooperative, No apparent distress HEENT: Atraumatic, TM's Clear Neck: No Nodes, Thyroid Normal Size and Texture Lungs: Normal air movement, - - Bilateral crackles Cardiovascular: Regular rate, Regular Rhythm, Normal S1, Normal S2 Abdomen: Bowel Sounds Present, Soft, Non Tender, Non-Distended, No Hepato- splenomegaly Extremities: No edema, No Calf Tenderness Skin: No rashes, No breakdown Psych/Mental Status: Normal Affect, Appropriate Microbiology Past 72 Hours 10/07/17 15:20 Urine Catheter - Yang Urine Culture - Preliminary Culture exhibits no growth. 10/01/17 00:06 Blood Culture (Wb) #2 - Left Hand Blood Culture - Final No growth in 5 days. Laboratory Results 10/08/17 11:00: PT 15.2 H, INR 1.2 10/09/17 05:20: WBC 8.3, RBC 3.00 L, Hgb 8.7 L, Hct 28.0 L, MCV 93.3, MCH 29.0, MCHC 31.1 L, RDW 14.1, RDW Differential 47.9 H, Plt Count 323, MPV 10.2, Immature Gran % (Auto) 0.200, Neut % (Auto) 64.8, Lymph % (Auto) 14.5 L, [place] % (Auto) 9.5, Eos % (Auto) 10.8 H, Baso % (Auto) 0.2, Absolute Neuts (auto) 5.4, Absolute Lymphs (auto) 1.21, Total Counted Not Reportable 10/09/17 05:20: PT 15.1 H, INR 1.2 10/09/17 05:20: Sodium 138, Potassium 3.7, Chloride 99, Carbon Dioxide 32.0, Anion Gap 7, BUN 14, Creatinine 0.62, Estim Creat Clear Calc 37.12, Est GFR ( MDRD) Af Amer 119, Est GFR (MDRD) Non-Af 98, BUN/Creatinine Ratio 22.6 H, Glucose 87, Calcium 8.4 L Current Medications Acetaminophen (Tylenol) 650 mg PO Q4H PRN PRN PRN Reason: FEVER Last Admin: 10/09/17 02:56 Dose: 650 mg Acetaminophen (Tylenol) 650 mg RECTAL Q6H PRN PRN PRN Reason: temp>101 / Pain Last Admin: 10/04/17 19:46 Dose: 650 mg Albuterol Sulfate (Ventolin Aerosols) 2.5 mg INHALATION Q2H PRN PRN PRN Reason: SHORTNESS OF BREATH Last Admin: 10/02/17 20:26 Dose: 2.5 mg Amlodipine Besylate (Norvasc) 5 mg PO DAILY [facility] Last Admin: 10/09/17 09:34 Dose: 5 mg Aspirin (Ecotrin) 81 mg PO DAILY [facility] Last Admin: 10/09/17 09:33 Dose: 81 mg Atorvastatin Calcium (Lipitor) 20 mg PO QHS [facility] Last Admin: 10/08/17 21:37 Dose: 20 mg Calamine/Phenol (Calmoseptine Ointment) 1 applic TOPICAL BID [facility] PRN Reason: Protocol Last Admin: 10/09/17 09:35 Dose: 1 applicatio Carvedilol (Coreg) 25 mg PO BID [facility] Last Admin: 10/09/17 09:34 Dose: 25 mg Chlorhexidine Gluconate () 1 each TOPICAL DAILY [facility] Last Admin: 10/09/17 03:22 Dose: 1 each Enoxaparin Sodium (Lovenox) 80 mg 1 mg/kg (80 mg) SC Q12@0600,1800 [facility] Last Admin: 10/09/17 05:27 Dose: 80 mg Famotidine (Pepcid) 20 mg PO BID [facility] Last Admin: 10/09/17 09:34 Dose: 20 mg Furosemide (Lasix) 40 mg PO BID@1000,1800 [facility] Last Admin: 10/09/17 09:33 Dose: 40 mg Guaifenesin (Mucinex) 1,200 mg PO BID [facility] Last Admin: 10/09/17 09:34 Dose: 1,200 mg Piperacillin Sod/Tazobactam Sod (Zosyn) 3.375 gm in 50 mls @ 12.5 mls/hr IV Q8 [facility] Last Admin: 10/09/17 05:27 Dose: 12.5 mls/hr Labetalol HCl (Trandate) 10 mg IV Q4H PRN PRN PRN Reason: HR > 120 Last Admin: 10/02/17 23:06 Dose: 10 mg Lisinopril (Zestril) 40 mg PO DAILY [facility] Last Admin: 10/09/17 09:33 Dose: 40 mg Magnesium Oxide (Mag-Ox 400) 400 mg PO DAILY [facility] Last Admin: 10/09/17 09:33 Dose: 400 mg Nitroglycerin (Nitrostat) 0.4 mg SUBLINGUAL Q5M PRN PRN Reason: Chest Pain Nutritional Formula (Lactose Free) (Ensure Clear) 120 ml PO 4X/DAY [facility] Last Admin: 10/09/17 09:43 Dose: 120 ml Ondansetron HCl (Zofran) 4 mg IV Q8H PRN PRN PRN Reason: NAUSEA Last Admin: 10/08/17 10:52 Dose: 4 mg Senna/Docusate Sodium (Senokot-S, Dilia-Colace) 2 tablet PO BID PRN PRN PRN Reason: Constipation Sodium Chloride () 5 - 30 ml IV UD PRN PRN Reason: SALINE FLUSH Last Admin: 10/09/17 05:27 Dose: 10 ml Tramadol HCl (Ultram) 50 mg PO Q6H PRN PRN PRN Reason: PAIN Last Admin: 10/08/17 21:39 Dose: 50 mg Warfarin Sodium (Coumadin (Pbkc)) 5 mg PO DAILY@1700 [facility] Last Admin: 10/08/17 18:46 Dose: 5 mg Medical Necessity - Tobacco Use Smoking Status: Never smoker Assessment/Plan All Active Problems (Last Updated 06/23/17 @ 17:11 by Too Cote, BARN BOSS-C) Surgical site infection (Resolved) multilobar HCAP (Acute) Acute respiratory failure with hypoxia (Acute) CHF (congestive heart failure) (Acute) Neck swelling (Acute) Accelerated hypertension (Resolved) Chest pain (Resolved) DVT of lower extremity (deep venous thrombosis) (Resolved) Nephrolithiasis (Resolved) 1. Acute hypoxic respiratory failure * Multifactorial, due to CHF, pneumonia plus minus acute lung injury * Improved today and patient is tolerating being off of BiPAP, at least for now. * Appreciate input by critical care medicine * CXR improving * tolerating nasal cannula at this time. 2. Suspected gram-negative pneumonia/healthcare acquired pneumonia * Sputum culture growing out coag negative staph, which I feel is probably contaminant. * Continue with pulmonary toilet * Continue with Zosyn 3. Heart failure with preserved ejection fraction * Ejection fraction of 70% from left heart catheterization from September 24, 2015 * Lasix transitioned over to oral. * Continue with lisinopril and carvedilol 4. Atrial fibrillation with RVR * Currently rate controlled * On carvedilol. * Continue with carvedilol for now. * Early on weight-based Lovenox for anticoagulation at this time. * given bioprsthetic AV, start coumadin 5. Non-STEMI * Troponins were as high as 0.216 * Suspect demand ischemia and given the patient's respiratory failure, pneumonia and heart failure. * Troponin on was down to 0.073. * Medical management for now. * On ASA, coreg, lisinopril, statin 6. DVT prophylaxis with anticoagulation. 7. Fevers * resolved * ID on consult * CT chest showed pneumonia. * CT abd/pelvis showed seroma v abscess adjacent to left him incision * Cortext to Dr. Parr to review CT A/P if any concern from an orthopaedic perspective. 8. Disposition: eventually to SNF. await recs from ID and ortho. Anticipate discharge in next 24-48h. Code Visit Inpatient E&M: 92013 Subs Hosp L2
--- NOTE | 2017-10-09 11:01 | CASEMGMT ---
TRACIE let Keely know patient may be ready over the weekend. Plan: [facility]. Green sheet on chart. [place] SOTO
--- NOTE | 2017-10-09 12:30 | PCM.HP.ID ---
Problem List (1) Surgical site infection Status: Resolved Reason for Consult: fever Consulted by: Dr. Agustin History of Present Illness: The patient is a 82 year old F with recent admission for L hip superficial surg site infection, taken to OR for exploration of underlying KAYCE. Surg cx with bacteroides, sent out on keflex and doxy, and anaerobic coverage was added after discharge. At [facility], hip was doing ok, but still had some mild drainage with wound vac in place, no redness, no fever. Around 09/24, started to develop some SOB and cough. By 09/28, sx were much worse, seen by physician at [facility], cxr done, and concern for pneumonia. Abx changed to ceftriaxone/flagyl, but sx continued to worsen, and she was admitted to [facility] 09/30 with fever to 101.3 and wbc 14. Given dose of vanc, admitted on zosyn, continued to have fever with negative cultures except for small growth of CONS from sputum. Has been in icu, but did not require intubation. Now off NIPPV and no fever last night. Drainage from hip has improved and ortho has been following. She is feeling better. Having some brown sputum now. Daughter at bedside. Full ROS performed and neg except as noted above. 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) Hyperthyroidism (Chronic) Hypokalemia (Chronic) Atherosclerotic heart disease of [place] coronary artery without angina pectoris (Chronic) CABG x1 RANDLE-LAD x/Aortic Valve Replacement Left bundle-branch block (Chronic) Nonrheumatic aortic valve stenosis (Chronic) HTN (hypertension) (Chronic) Other chest pain (Chronic) Presence of aortocoronary bypass graft (Chronic) Dyspnea on exertion (Chronic) Fatigue (Chronic) Chronic pulmonary heart disease (Chronic) CVA (cerebral infarction) (Chronic) Hyperlipidemia (Chronic) Paroxysmal ventricular tachycardia (Chronic) HTN (hypertension) (Chronic) Hypothyroidism associated with surgical procedure (Chronic) had a subtotal thyroidectomy for goiter Hemorrhoids (Chronic) Restless leg syndrome (Chronic) TIA (transient ischemic attack) (Chronic) multiple History of aortic valve replacement with bioprosthetic valve (Chronic) Allergies/Adverse Reactions: Allergies adhesive Allergy (Verified 09/30/17 21:57) Unknown etodolac Allergy (Verified 09/30/17 21:57) Unknown magnesium Allergy (Verified 09/30/17 21:57) Unknown melatonin Allergy (Verified 09/30/17 21:57) Unknown nitroglycerin Allergy (Verified 09/30/17 21:57) Unknown oxycodone HCl [From Percocet] Allergy (Verified 09/30/17 21:57) Unknown phenobarbital Allergy (Verified 09/30/17 21:57) Unknown tolmetin sodium [From Tolectin] Allergy (Verified 09/30/17 21:57) Unknown venlafaxine Allergy (Verified 09/30/17 21:57) Unknown coenzyme Q10 Allergy (Uncoded 09/30/17 21:57) Unknown nitropatch Allergy (Uncoded 09/30/17 21:57) unknown Home Medications: Ambulatory Orders Medication Instructions Recorded Magnesium Oxide [Mag-Ox 400] 400 mg PO DAILY 09/17/15 Nitroglycerin [Nitrostat] 0.4 mg SUBLINGUAL Q5M PRN 09/20/15 coenzyme Q10 200 mg capsule 200 mg PO DAILY 05/05/17 gabapentin 100 mg capsule 200 mg PO BID 05/05/17 melatonin 3 mg tablet 3 mg PO HS PRN 05/07/17 amlodipine 5 mg tablet 5 mg PO DAILY 06/23/17 atorvastatin 40 mg tablet 20 mg PO QHS tab 06/23/17 furosemide 40 mg tablet 40 mg PO DAILY 06/23/17 Carvedilol [Coreg (Beta Gene)] 25 mg PO BID 07/06/17 Cholecalciferol (Vitamin D3) 1,000 unit PO DAILY 07/06/17 [Vitamin D3] Acetaminophen [Tylenol] 1,000 mg PO Q8 14 Days tablet 09/19/17 Aspirin 325 mg PO BIDCM 30 Days tablet 09/19/17 Lisinopril [Zestril] 40 mg PO DAILY tablet 09/19/17 Senna/Docusate Sodium [Senokot-S] 2 tab PO BID #20 tab 09/19/17 traMADol [Ultram] 50 - 100 mg PO Q6H PRN PRN 7 Days 09/19/17 #56 tab Albuterol Aerosols [Ventolin 2.5 mg INHALATION Q4H PRN PRN 09/30/17 Aerosols] Antifungal 1 % TOPICAL BID 09/30/17 Ceftriaxone [Rocephin] 2 gm IV Q24 09/30/17 Diphenhydramine HCl [Diphenhist] 25 mg PO Q4H PRN PRN 09/30/17 Famotidine [Pepcid] 20 mg PO BID 09/30/17 Metronidazole [Flagyl] 500 mg PO Q8 09/30/17 Omeprazole [Prilosec] 20 mg PO DAILY 09/30/17 Potassium Chloride [K-Dur] 20 meq PO DAILY 09/30/17 - Social History SMOKING STATUS:: Former smoker Vital Signs Temp Pulse Resp BP Pulse Ox 97.3 F L 85 20 H 116/56 L 96 10/09/17 07:25 10/09/17 08:00 10/09/17 07:25 10/09/17 07:25 10/09/17 11:44 Oxygen Flow Rate (L/min) 2 Oxygen Delivery Method Nasal Cannula Weight: 71.5 kg Body Mass Index (BMI) 30.7 Microbiology Past 72 Hours 10/07/17 15:20 Urine Culture - Preliminary Urine Catheter - Yang Culture exhibits no growth. Laboratory Tests Past 24 Hrs 10/09/17 10/09/17 10/09/17 05:20 05:20 05:20 WBC 8.3 RBC 3.00 L Hgb 8.7 L Hct 28.0 L MCV 93.3 MCH 29.0 MCHC 31.1 L RDW 14.1 RDW Differential 47.9 H Plt Count 323 MPV 10.2 Immature Gran % (Auto) 0.200 Neut % (Auto) 64.8 Lymph % (Auto) 14.5 L [place] % (Auto) 9.5 Eos % (Auto) 10.8 H Baso % (Auto) 0.2 Absolute Neuts (auto) 5.4 Absolute Lymphs (auto) 1.21 Total Counted Not Reportable PT 15.1 H INR 1.2 Sodium 138 Potassium 3.7 Chloride 99 Carbon Dioxide 32.0 Anion Gap 7 BUN 14 Creatinine 0.62 Estim Creat Clear Calc 37.12 Est GFR (MDRD) Af Amer 119 Est GFR (MDRD) Non-Af 98 BUN/Creatinine Ratio 22.6 H Glucose 87 Calcium 8.4 L - Other Studies Radiology: [] reviewed Other Studies: [] Route of nutrition/ use of supplements: [] Nutritional Intake: [] IV Site: [] Yang Catheter: [] - Physical Exam General: Alert, Cooperative, No apparent distress HEENT: Atraumatic, PERRLA, EOMI Neck: Supple, No Nodes Lungs: Rhonchi Cardiovascular: Irregular Rate, Tachycardic Abdomen: Bowel Sounds Present, Soft, Non Tender, Non-Distended Extremities: Edema - mild BLE Skin: No rashes, Ulcer/ Wound - L hip, no redness IV Site: PICC, without redness Musculoskeletal: No Tenderness to Palpation of Joints or Extremities Neurological: Cranial nerves II-XII grossly intact - Assessment/Plan Antibiotics: [] Assessment/Plan: [] Active and Suspected Problems (Last Updated 06/23/17 @ 17:11 by Too Cote, INDUSTRIAL EDUCATION INSTRUCTOR-C) multilobar HCAP (Acute) Acute respiratory failure with hypoxia (Acute) CHF (congestive heart failure) (Acute) sepsis due to pneumonia - improving. FiO2 at 35%, off NIPPV, wbc now normal, and fever resolved. Cont zosyn. Day 10 of abx. Plan on 14 days total of abx, stop date 10/13/17. Cdiff was neg. UA with no pyuria. CXR showing some improvement. Superficial surgical site infection s/p L total hip replacement 07/21/17 - now s/p debridement 09/[address] Parr with cxs (+) for bacteroides. Abx as above. CT showed small fluid collection near surgical site. If fevers return, would recommend aspiration or surgical debridement. Thank you, will follow. D/w Dr. Agustin.
--- NOTE | 2017-10-09 12:40 | CON.PCM_ITS ---
Problem List (1) Surgical site infection Status: Resolved Reason for Consult: fever Consulted by: Dr. Agustin History of Present Illness: The patient is a 82 year old F with recent admission for L hip superficial surg site infection, taken to OR for exploration of underlying KAYCE. Surg cx with bacteroides, sent out on keflex and doxy, and anaerobic coverage was added after discharge. At [facility], hip was doing ok, but still had some mild drainage with wound vac in place, no redness, no fever. Around 09/24, started to develop some SOB and cough. By 09/28, sx were much worse, seen by physician at [facility], cxr done, and concern for pneumonia. Abx changed to ceftriaxone/flagyl, but sx continued to worsen, and she was admitted to [facility] 09/30 with fever to 101.3 and wbc 14. Given dose of vanc, admitted on zosyn, continued to have fever with negative cultures except for small growth of CONS from sputum. Has been in icu , but did not require intubation. Now off NIPPV and no fever last night. Drainage from hip has improved and ortho has been following. She is feeling better. Having some brown sputum now. Daughter at bedside. Full ROS performed and neg except as noted above. 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) Hyperthyroidism (Chronic) Hypokalemia (Chronic) Atherosclerotic heart disease of [place] coronary artery without angina pectoris (Chronic) CABG x1 RANDLE-LAD x/Aortic Valve Replacement Left bundle-branch block (Chronic) Nonrheumatic aortic valve stenosis (Chronic) HTN (hypertension) (Chronic) Other chest pain (Chronic) Presence of aortocoronary bypass graft (Chronic) Dyspnea on exertion (Chronic) Fatigue (Chronic) Chronic pulmonary heart disease (Chronic) CVA (cerebral infarction) (Chronic) Hyperlipidemia (Chronic) Paroxysmal ventricular tachycardia (Chronic) HTN (hypertension) (Chronic) Hypothyroidism associated with surgical procedure (Chronic) had a subtotal thyroidectomy for goiter Hemorrhoids (Chronic) Restless leg syndrome (Chronic) TIA (transient ischemic attack) (Chronic) multiple History of aortic valve replacement with bioprosthetic valve (Chronic) Allergies/Adverse Reactions: Allergies adhesive Allergy (Verified 09/30/17 21:57) Unknown etodolac Allergy (Verified 09/30/17 21:57) Unknown magnesium Allergy (Verified 09/30/17 21:57) Unknown melatonin Allergy (Verified 09/30/17 21:57) Unknown nitroglycerin Allergy (Verified 09/30/17 21:57) Unknown oxycodone HCl [From Percocet] Allergy (Verified 09/30/17 21:57) Unknown phenobarbital Allergy (Verified 09/30/17 21:57) Unknown tolmetin sodium [From Tolectin] Allergy (Verified 09/30/17 21:57) Unknown venlafaxine Allergy (Verified 09/30/17 21:57) Unknown coenzyme Q10 Allergy (Uncoded 09/30/17 21:57) Unknown nitropatch Allergy (Uncoded 09/30/17 21:57) unknown Home Medications: Ambulatory Orders Medication Instructions Recorded Magnesium Oxide [Mag-Ox 400] 400 mg PO DAILY 09/17/15 Nitroglycerin [Nitrostat] 0.4 mg SUBLINGUAL Q5M PRN 09/20/15 coenzyme Q10 200 mg capsule 200 mg PO DAILY 05/05/17 gabapentin 100 mg capsule 200 mg PO BID 05/05/17 melatonin 3 mg tablet 3 mg PO HS PRN 05/07/17 amlodipine 5 mg tablet 5 mg PO DAILY 06/23/17 atorvastatin 40 mg tablet 20 mg PO QHS tab 06/23/17 furosemide 40 mg tablet 40 mg PO DAILY 06/23/17 Carvedilol [Coreg (Beta Gene)] 25 mg PO BID 07/06/17 Cholecalciferol (Vitamin D3) 1,000 unit PO DAILY 07/06/17 [Vitamin D3] Acetaminophen [Tylenol] 1,000 mg PO Q8 14 Days tablet 09/19/17 Aspirin 325 mg PO BIDCM 30 Days tablet 09/19/17 Lisinopril [Zestril] 40 mg PO DAILY tablet 09/19/17 Senna/Docusate Sodium [Senokot-S] 2 tab PO BID #20 tab 09/19/17 traMADol [Ultram] 50 - 100 mg PO Q6H PRN PRN 7 Days 09/19/17 #56 tab Albuterol Aerosols [Ventolin 2.5 mg INHALATION Q4H PRN PRN 09/30/17 Aerosols] Antifungal 1 % TOPICAL BID 09/30/17 Ceftriaxone [Rocephin] 2 gm IV Q24 09/30/17 Diphenhydramine HCl [Diphenhist] 25 mg PO Q4H PRN PRN 09/30/17 Famotidine [Pepcid] 20 mg PO BID 09/30/17 Metronidazole [Flagyl] 500 mg PO Q8 09/30/17 Omeprazole [Prilosec] 20 mg PO DAILY 09/30/17 Potassium Chloride [K-Dur] 20 meq PO DAILY 09/30/17 - Social History SMOKING STATUS:: Former smoker Vital Signs Temp Pulse Resp BP Pulse Ox 97.3 F L 85 20 H 116/56 L 96 10/09/17 07:25 10/09/17 08:00 10/09/17 07:25 10/09/17 07:25 10/09/17 11:44 Oxygen Flow Rate (L/min) 2 Oxygen Delivery Method Nasal Cannula Weight: 71.5 kg Body Mass Index (BMI) 30.7 Microbiology Past 72 Hours 10/07/17 15:20 Urine Culture - Preliminary Urine Catheter - Yang Culture exhibits no growth. Laboratory Tests Past 24 Hrs 10/09/17 10/09/17 10/09/17 05:20 05:20 05:20 WBC 8.3 RBC 3.00 L Hgb 8.7 L Hct 28.0 L MCV 93.3 MCH 29.0 MCHC 31.1 L RDW 14.1 RDW Differential 47.9 H Plt Count 323 MPV 10.2 Immature Gran % (Auto) 0.200 Neut % (Auto) 64.8 Lymph % (Auto) 14.5 L [place] % (Auto) 9.5 Eos % (Auto) 10.8 H Baso % (Auto) 0.2 Absolute Neuts (auto) 5.4 Absolute Lymphs (auto) 1.21 Total Counted Not Reportable PT 15.1 H INR 1.2 Sodium 138 Potassium 3.7 Chloride 99 Carbon Dioxide 32.0 Anion Gap 7 BUN 14 Creatinine 0.62 Estim Creat Clear Calc 37.12 Est GFR (MDRD) Af Amer 119 Est GFR (MDRD) Non-Af 98 BUN/Creatinine Ratio 22.6 H Glucose 87 Calcium 8.4 L - Other Studies Radiology: [] reviewed Other Studies: [] Route of nutrition/ use of supplements: [] Nutritional Intake: [] IV Site: [] Yang Catheter: [] - Physical Exam General: Alert, Cooperative, No apparent distress HEENT: Atraumatic, PERRLA, EOMI Neck: Supple, No Nodes Lungs: Rhonchi Cardiovascular: Irregular Rate, Tachycardic Abdomen: Bowel Sounds Present, Soft, Non Tender, Non-Distended Extremities: Edema - mild BLE Skin: No rashes, Ulcer/ Wound - L hip, no redness IV Site: PICC, without redness Musculoskeletal: No Tenderness to Palpation of Joints or Extremities Neurological: Cranial nerves II-XII grossly intact - Assessment/Plan Antibiotics: [] Assessment/Plan: [] Active and Suspected Problems (Last Updated 06/23/17 @ 17:11 by Too Cote, ENGINE TESTING SUPERVISOR- C) multilobar HCAP (Acute) Acute respiratory failure with hypoxia (Acute) CHF (congestive heart failure) (Acute) sepsis due to pneumonia - improving. FiO2 at 35%, off NIPPV, wbc now normal, and fever resolved. Cont zosyn. Day 10 of abx. Plan on 14 days total of abx, stop date 10/13/17. Cdiff was neg. UA with no pyuria. CXR showing some improvement. Superficial surgical site infection s/p L total hip replacement 07/21/17 - now s/ p debridement 09/[address] Parr with cxs (+) for bacteroides. Abx as above. CT showed small fluid collection near surgical site. If fevers return, would recommend aspiration or surgical debridement. Thank you, will follow. D/w Dr. Agustin.
[2017-10-09] MEDS: Atorvastatin Calcium 20 MG Tablet PO (22:40)
[2017-10-10] VITALS (17 sets, daily range): BP systolic 103–125; BP diastolic 56–63; PULSE 76–89; RESP 12–28; TEMP 37–37.8; O2SAT 92–100
[2017-10-10 05:20] LABS: International Normalized Ratio 1.3; Prothrombin Time (Protime)PT. 16.5 SECONDS (11.7-14.9)
[2017-10-10 05:25] LABS: Absolute Lymphocyte Count 1.14 X10^3/ul (0.83-4.51); Absolute Neutrophil Count 5.7 X10^3/uL (2.0-7.7); Basophil# 0.02 X10^3/uL; Basophil% 0.2 % (0-1); Eosinophil# 0.88 X10^3/uL; Eosinophils% 10.3 % (0-5); Hematocrit 27.8 % (37-47); Hemoglobin 8.7 g/dl (12.0-15.0); Lymphocyte # 1.14 X10^3/ul (4.0); Lymphocyte % 13.3 % (19-41); Mean Corp Hgb Conc 31.3 g/gl (32-36); Mean Corpuscular Hgb 29.2 pg (27.0-32.0); Mean Corpuscular Volume 93.3 fL (81-99); Mean Platelet Vol. 9.8 fl (6.2-12.0); Monocyte# 0.85 X10^3/uL; Monocyte% 9.9 % (0-10); Neutrophil # 5.67 X10^3/uL (2.7-7.7); Neutrophil % 66.2 % (47-70); Platelet Count 346 K/mm3 (150-450); RBC Distribution Width CV 14.2 % (11.6-14.6); RBC Distribution Width SD 48.3 fl (35.1-43.9); Red Blood Count 2.98 M/mm3 (4.2-5.4); White Blood Count 8.6 K/mm3 (4.4-11.0)
[2017-10-10 05:26] LABS: Differential Indicated SCAN CRITERIA MET; POSITIVE COUNT YES; POSITIVE DIFFERENTIAL NO; POSITIVE MORPHOLOGY NO
[2017-10-10 05:29] LABS: Anion Gap 8 (5-15); BUN 10 mg/dL (7-18); BUN/Creat Ratio 18.9 RATIO (10-20); Calcium,Total 8.3 mg/dL (8.5-10.1); Chloride 100 mmol/L (98-107); Creatinine, Serum 0.53 mg/dL (0.55-1.02); EST Glomerular Filtration Rate 118 mL/min (>60); Est Glom Filt Rate - Afr Amer 143 mL/min (>60); Estimated Creatinine Clearance 37.12 ml/min; Glucose 85 mg/dL (74-106); Potassium 3.8 mmol/L (3.5-5.1); Sodium Level 139 mmol/L (136-145)
[2017-10-10] MEDS: Piperacil/Tazobactam 3.375 GM/50 ML ML IV ×3 (05:36→21:58)
[2017-10-10] MEDS: Enoxaparin 80 MG/0.8 ML Syringe SC ×2 (05:37→17:05)
--- NOTE | 2017-10-10 06:42 | PCM.PN.INT ---
Subjective: The patient was seen and examined at the bedside this morning. Events from the last 24 hours have been reviewed. The patient currently has a low-grade fever, but remains hemodynamically stable. She is maintaining appropriate oxygen saturations on 4 L/min via nasal cannula. The patient denies shortness of breath or cough this morning. Objective: The patient's most recent lab work, culture data and imaging studies have all been personally reviewed. C. difficile was negative. Respiratory viral panel was negative. Strep and urine Legionella antigens were both negative. Blood and urine cultures have been negative. Surface echocardiogram dated July 2016 revealed normal LV size and function with an ejection fraction of 55%. Pulmonary artery systolic pressure was estimated to be 48 mmHg. General: Alert, Cooperative, No apparent distress, - - Exceedingly hard of hearing HEENT: Atraumatic, PERRLA, EOMI Oral: Moist Mucosa, No Gingival or Mucosal Lesions/ Ulcerations Neck: Supple, No Nodes, Trachea Midline Lungs: No rhonchi, No wheeze, No rales, Diminished Cardiovascular: Normal S1, Normal S2, No murmurs, Irregular Rate, No rub noted, No Gallop Abdomen: Bowel Sounds Present, Soft, Non Tender, Non-Distended Extremities: No clubbing, No cyanosis, No edema Skin: No breakdown Musculoskeletal: No Tenderness to Palpation of Joints or Extremities Lymphatic: No Cervical, Supraclavicular, or Inguinal Adenopathy Neurological: Neuro grossly intact Psych/Mental Status: Normal Affect, Appropriate Vital Signs Temp Pulse Resp BP Pulse Ox 99.5 F H 82 27 H 111/62 98 10/10/17 06:00 10/10/17 06:00 10/10/17 06:00 10/10/17 06:00 10/10/17 06:00 Oxygen Flow Rate (L/min) 4 Oxygen Delivery Method Nasal Cannula Weight: 155 lb 13.869 oz Body Mass Index (BMI) 30.7 Intake and Output for Last 24 Hours 10/08/17 10/09/17 10/10/17 23:59 23:59 23:59 Intake Total 855 / 855 749 / 749 213.2 / 213.2 Output Total 1325 / 1325 600 / 600 575 / 575 Balance -470 / -470 149 / 149 -361.8 / -361.8 Labs (Last 48 Hours) 05/10/09/17 10/09/17 11:00 05:20 05:20 WBC 8.3 RBC 3.00 L Hgb 8.7 L Hct 28.0 L MCV 93.3 MCH 29.0 MCHC 31.1 L RDW 14.1 RDW Differential 47.9 H Plt Count 323 MPV 10.2 Immature Gran % (Auto) 0.200 Neut % (Auto) 64.8 Lymph % (Auto) 14.[address] [place] % (Auto) 9.5 Eos % (Auto) 10.8 H Baso % (Auto) 0.2 Absolute Neuts (auto) 5.4 Absolute Lymphs (auto) 1.21 Total Counted Not Reportable Differential Comment PT 15.2 H 15.1 H INR 1.2 1.2 Sodium Potassium Chloride Carbon Dioxide Anion Gap BUN Creatinine Estim Creat Clear Calc Est GFR (MDRD) Af Amer Est GFR (MDRD) Non-Af BUN/Creatinine Ratio Glucose Calcium 10/09/17 10/10/17 10/10/17 05:20 05:00 05:00 WBC 8.6 RBC 2.98 L Hgb 8.7 L Hct 27.8 L MCV 93.3 MCH 29.2 MCHC 31.3 L RDW 14.2 RDW Differential 48.3 H Plt Count 346 MPV 9.8 Immature Gran % (Auto) 0.100 Neut % (Auto) 66.2 Lymph % (Auto) 13.[address] [place] % (Auto) 9.9 Eos % (Auto) 10.3 H Baso % (Auto) 0.2 Absolute Neuts (auto) 5.7 Absolute Lymphs (auto) 1.14 Total Counted Not Reportable Differential Comment PT 16.5 H INR 1.3 Sodium 138 Potassium 3.7 Chloride 99 Carbon Dioxide 32.0 Anion Gap 7 BUN 14 Creatinine 0.62 Estim Creat Clear Calc 37.12 Est GFR (MDRD) Af Amer 119 Est GFR (MDRD) Non-Af 98 BUN/Creatinine Ratio 22.6 H Glucose 87 Calcium 8.4 L 10/10/17 05:00 WBC RBC Hgb Hct MCV MCH MCHC RDW RDW Differential Plt Count MPV Immature Gran % (Auto) Neut % (Auto) Lymph % (Auto) [place] % (Auto) Eos % (Auto) Baso % (Auto) Absolute Neuts (auto) Absolute Lymphs (auto) Total Counted Differential Comment PT INR Sodium 139 Potassium 3.8 Chloride 100 Carbon Dioxide 31.0 Anion Gap 8 BUN 10 Creatinine 0.53 L Estim Creat Clear Calc 37.12 Est GFR (MDRD) Af Amer 143 Est GFR (MDRD) Non-Af 118 BUN/Creatinine Ratio 18.9 Glucose 85 Calcium 8.3 L Microbiology 10/07/17 15:15 Blood Culture (Wb) - Left Hand Blood Culture - Preliminary No growth in 48 hours. 10/07/17 15:00 Blood Culture (Wb) - Right Hand Blood Culture - Preliminary No growth in 48 hours. 10/07/17 15:20 Urine Catheter - Yang Urine Culture - Preliminary Culture exhibits no growth. Clinical Impression(s) from Imaging Studies Chest X-Ray 09/30/17 22:05 IMPRESSION: Multiple bilateral perihilar nodules or nodular-type infiltrates more severe on the right. This probably represents pulmonary edema however cannot exclude inflammatory disease or neoplasm. Clinical correlation recommended Electronically Signed: Zac Chandler MD at 22:48 EDT , Service support , Chest X-Ray 10/01/17 07:10 IMPRESSION: Progressive bilateral airspace disease worse in the right hemithorax. Electronically Signed: Reggie Castillo MD at 9:37 EDT Tel [phone], Service support , Chest X-Ray 10/02/17 03:10 IMPRESSION: No significant change since previous examination. Extensive bilateral infiltrates markedly worse on the right side. Lucency in the left upper chest as described above. Follow-up examination is recommended. Electronically Signed: Art Joseph MD at 3:48 EDT Tel , Service support , Chest X-Ray 10/03/17 08:14 IMPRESSION: Bilateral infiltrates essentially unchanged since prior examination. Electronically Signed: Art Joseph MD at 9:23 EDT Tel , Service support , Chest X-Ray 10/06/17 06:21 IMPRESSION: Persistent bilateral infiltrates worse on the right side. There has been mild improvement as compared to prior study. Further follow-up is recommended. Electronically Signed: Reggie Castillo MD at 8:18 EDT Tel [phone], Service support , Abdomen/Pelvis CT 10/08/17 09:18 IMPRESSION: 1. Slender fluid collection associated with the left hip incision, probably representing seroma. Abscess cannot be entirely excluded. 2. Diffuse induration in the presacral fat of the pelvis, of uncertain significance. 3. Small focus of asymmetric thickening of the wall of the rectosigmoid, of uncertain significance. Consider follow-up colonoscopy. 4. Bilateral lower lobe pneumonia. Minimal left effusion. 5. Large sliding hiatal hernia containing the majority of the stomach. Electronically Signed: Gelacio Munoz, at 13:02 EDT Tel , Service support , Chest CT 10/08/17 09:18 IMPRESSION: Bilateral multilobar pneumonia. Chronic cardiac disease. Large sliding hiatal hernia. Small thyroid nodules. Electronically Signed: Gelacio Munoz, at 13:07 EDT Tel , Service support , Medical Necessity - Tobacco Use Smoking Status: Never smoker Assessment/Plan All Active Problems (Last Updated 06/23/17 @ 17:11 by Too Cote NP-C) Surgical site infection (Resolved) multilobar HCAP (Acute) Acute respiratory failure with hypoxia (Acute) CHF (congestive heart failure) (Acute) Neck swelling (Acute) Accelerated hypertension (Resolved) Chest pain (Resolved) DVT of lower extremity (deep venous thrombosis) (Resolved) Nephrolithiasis (Resolved) RECOMMENDATIONS: 1. Continue antibiotics per ID recommendations 2. Continue intermittent BiPAP and wean as tolerated. Goal to maintain oxygen saturations at or above 90%. 3. Continue Lasix. 4. Rate/rhythm control per cardiology recommendations. 5. Encourage incentive spirometer use and mobilize patient as tolerated. 6. Perform walking oximetry prior to consideration for discharge from the hospital. IMPRESSIONS: 1. Acute hypoxemic respiratory failure, secondary to healthcare associated pneumonia The patient presented with dyspnea and required the initiation of BiPAP support. She has responded favorably from a clinical perspective to the use of BiPAP and broad-spectrum antibiotics in treatment for multifocal pneumonia. Antibiotics will be continued per infectious diseases recommendations. Continue to wean supplemental oxygen to maintain saturations at or above 90%. Encourage incentive spirometer use and mobilize patient as tolerated. Continue Lasix as ordered. Perform walking oximetry study prior to consideration for discharge from the hospital. 2. Atrial fibrillation with RVR/Personal history of coronary artery disease status post CABG/aortic valve disease status post replacement/ICD in situ Continue rate/rhythm control therapy per cardiology recommendations. 3. 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 This appears to have resolved at this time. 4. Advanced age/neuropathy/hypertension/hyperlipidemia/GERD Complicates care, management, recovery and prognosis. The patient is a documented DNR CCA on file. Physical therapy to continue to work with patient. This note was generated with [employer] dictation software. It may contain incorrect words, spelling, and punctuation that were not noted in checking the note before signing. Code Visit Inpatient E&M: 38296 Subs Hosp L2
--- NOTE | 2017-10-10 06:45 | PN_ITS ---
Subjective: The patient was seen and examined at the bedside this morning. Events from the last 24 hours have been reviewed. The patient currently has a low-grade fever, but remains hemodynamically stable. She is maintaining appropriate oxygen saturations on 4 L/min via nasal cannula. The patient denies shortness of breath or cough this morning. Objective: The patient's most recent lab work, culture data and imaging studies have all been personally reviewed. C. difficile was negative. Respiratory viral panel was negative. Strep and urine Legionella antigens were both negative. Blood and urine cultures have been negative. Surface echocardiogram dated July 2016 revealed normal LV size and function with an ejection fraction of 55%. Pulmonary artery systolic pressure was estimated to be 48 mmHg. General: Alert, Cooperative, No apparent distress, - - Exceedingly hard of hearing HEENT: Atraumatic, PERRLA, EOMI Oral: Moist Mucosa, No Gingival or Mucosal Lesions/ Ulcerations Neck: Supple, No Nodes, Trachea Midline Lungs: No rhonchi, No wheeze, No rales, Diminished Cardiovascular: Normal S1, Normal S2, No murmurs, Irregular Rate, No rub noted, No Gallop Abdomen: Bowel Sounds Present, Soft, Non Tender, Non-Distended Extremities: No clubbing, No cyanosis, No edema Skin: No breakdown Musculoskeletal: No Tenderness to Palpation of Joints or Extremities Lymphatic: No Cervical, Supraclavicular, or Inguinal Adenopathy Neurological: Neuro grossly intact Psych/Mental Status: Normal Affect, Appropriate Vital Signs Temp Pulse Resp BP Pulse Ox 99.5 F H 82 27 H 111/62 98 10/10/17 06:00 10/10/17 06:00 10/10/17 06:00 10/10/17 06:00 10/10/17 06:00 Oxygen Flow Rate (L/min) 4 Oxygen Delivery Method Nasal Cannula Weight: 155 lb 13.869 oz Body Mass Index (BMI) 30.7 Intake and Output for Last 24 Hours 10/08/17 10/09/17 10/10/17 23:59 23:59 23:59 Intake Total 855 / 855 749 / 749 213.2 / 213.2 Output Total 1325 / 1325 600 / 600 575 / 575 Balance -470 / -470 149 / 149 -361.8 / -361.8 Labs (Last 48 Hours) 05/10/09/17 10/09/17 11:00 05:20 05:20 WBC 8.3 RBC 3.00 L Hgb 8.7 L Hct 28.0 L MCV 93.3 MCH 29.0 MCHC 31.1 L RDW 14.1 RDW Differential 47.9 H Plt Count 323 MPV 10.2 Immature Gran % (Auto) 0.200 Neut % (Auto) 64.8 Lymph % (Auto) 14.5 L Garza % (Auto) 9.5 Eos % (Auto) 10.8 H Baso % (Auto) 0.2 Absolute Neuts (auto) 5.4 Absolute Lymphs (auto) 1.21 Total Counted Not Reportable Differential Comment PT 15.2 H 15.1 H INR 1.2 1.2 Sodium Potassium Chloride Carbon Dioxide Anion Gap BUN Creatinine Estim Creat Clear Calc Est GFR (MDRD) Af Amer Est GFR (MDRD) Non-Af BUN/Creatinine Ratio Glucose Calcium 10/09/17 10/10/17 10/10/17 05:20 05:00 05:00 WBC 8.6 RBC 2.98 L Hgb 8.7 L Hct 27.8 L MCV 93.3 MCH 29.2 MCHC 31.3 L RDW 14.2 RDW Differential 48.3 H Plt Count 346 MPV 9.8 Immature Gran % (Auto) 0.100 Neut % (Auto) 66.2 Lymph % (Auto) 13.3 L Garza % (Auto) 9.9 Eos % (Auto) 10.3 H Baso % (Auto) 0.2 Absolute Neuts (auto) 5.7 Absolute Lymphs (auto) 1.14 Total Counted Not Reportable Differential Comment PT 16.5 H INR 1.3 Sodium 138 Potassium 3.7 Chloride 99 Carbon Dioxide 32.0 Anion Gap 7 BUN 14 Creatinine 0.62 Estim Creat Clear Calc 37.12 Est GFR (MDRD) Af Amer 119 Est GFR (MDRD) Non-Af 98 BUN/Creatinine Ratio 22.6 H Glucose 87 Calcium 8.4 L 10/10/17 05:00 WBC RBC Hgb Hct MCV MCH MCHC RDW RDW Differential Plt Count MPV Immature Gran % (Auto) Neut % (Auto) Lymph % (Auto) Garza % (Auto) Eos % (Auto) Baso % (Auto) Absolute Neuts (auto) Absolute Lymphs (auto) Total Counted Differential Comment PT INR Sodium 139 Potassium 3.8 Chloride 100 Carbon Dioxide 31.0 Anion Gap 8 BUN 10 Creatinine 0.53 L Estim Creat Clear Calc 37.12 Est GFR (MDRD) Af Amer 143 Est GFR (MDRD) Non-Af 118 BUN/Creatinine Ratio 18.9 Glucose 85 Calcium 8.3 L Microbiology 10/07/17 15:15 Blood Culture (Wb) - Left Hand Blood Culture - Preliminary No growth in 48 hours. 10/07/17 15:00 Blood Culture (Wb) - Right Hand Blood Culture - Preliminary No growth in 48 hours. 10/07/17 15:20 Urine Catheter - Yang Urine Culture - Preliminary Culture exhibits no growth. Clinical Impression(s) from Imaging Studies Chest X-Ray 09/30/17 22:05 IMPRESSION: Multiple bilateral perihilar nodules or nodular-type infiltrates more severe on the right. This probably represents pulmonary edema however cannot exclude inflammatory disease or neoplasm. Clinical correlation recommended Electronically Signed: Zac Chandler MD at 22:48 EDT , Service support , Chest X-Ray 10/01/17 07:10 IMPRESSION: Progressive bilateral airspace disease worse in the right hemithorax. Electronically Signed: Reggie Castillo MD at 9:37 EDT Tel [phone], Service support , Chest X-Ray 10/02/17 03:10 IMPRESSION: No significant change since previous examination. Extensive bilateral infiltrates markedly worse on the right side. Lucency in the left upper chest as described above. Follow-up examination is recommended. Electronically Signed: Art Joseph MD at 3:48 EDT Tel , Service support , Chest X-Ray 10/03/17 08:14 IMPRESSION: Bilateral infiltrates essentially unchanged since prior examination. Electronically Signed: Art Joseph MD at 9:23 EDT Tel , Service support , Chest X-Ray 10/06/17 06:21 IMPRESSION: Persistent bilateral infiltrates worse on the right side. There has been mild improvement as compared to prior study. Further follow-up is recommended. Electronically Signed: Reggie Castillo MD at 8:18 EDT Tel [phone], Service support , Abdomen/Pelvis CT 10/08/17 09:18 IMPRESSION: 1. Slender fluid collection associated with the left hip incision, probably representing seroma. Abscess cannot be entirely excluded. 2. Diffuse induration in the presacral fat of the pelvis, of uncertain significance. 3. Small focus of asymmetric thickening of the wall of the rectosigmoid, of uncertain significance. Consider follow-up colonoscopy. 4. Bilateral lower lobe pneumonia. Minimal left effusion. 5. Large sliding hiatal hernia containing the majority of the stomach. Electronically Signed: Gelacio Munoz, at 13:02 EDT Tel , Service support , Chest CT 10/08/17 09:18 IMPRESSION: Bilateral multilobar pneumonia. Chronic cardiac disease. Large sliding hiatal hernia. Small thyroid nodules. Electronically Signed: Gelacio Munoz, at 13:07 EDT Tel , Service support , Medical Necessity - Tobacco Use Smoking Status: Never smoker Assessment/Plan All Active Problems (Last Updated 06/23/17 @ 17:11 by Too Cote NP-C) Surgical site infection (Resolved) multilobar HCAP (Acute) Acute respiratory failure with hypoxia (Acute) CHF (congestive heart failure) (Acute) Neck swelling (Acute) Accelerated hypertension (Resolved) Chest pain (Resolved) DVT of lower extremity (deep venous thrombosis) (Resolved) Nephrolithiasis (Resolved) RECOMMENDATIONS: 1. Continue antibiotics per ID recommendations 2. Continue intermittent BiPAP and wean as tolerated. Goal to maintain oxygen saturations at or above 90%. 3. Continue Lasix. 4. Rate/rhythm control per cardiology recommendations. 5. Encourage incentive spirometer use and mobilize patient as tolerated. 6. Perform walking oximetry prior to consideration for discharge from the hospital. IMPRESSIONS: 1. Acute hypoxemic respiratory failure, secondary to healthcare associated pneumonia The patient presented with dyspnea and required the initiation of BiPAP support. She has responded favorably from a clinical perspective to the use of BiPAP and broad-spectrum antibiotics in treatment for multifocal pneumonia. Antibiotics will be continued per infectious diseases recommendations. Continue to wean supplemental oxygen to maintain saturations at or above 90%. Encourage incentive spirometer use and mobilize patient as tolerated. Continue Lasix as ordered. Perform walking oximetry study prior to consideration for discharge from the hospital. 2. Atrial fibrillation with RVR/Personal history of coronary artery disease status post CABG/aortic valve disease status post replacement/ICD in situ Continue rate/rhythm control therapy per cardiology recommendations. 3. 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 This appears to have resolved at this time. 4. Advanced age/neuropathy/hypertension/hyperlipidemia/GERD Complicates care, management, recovery and prognosis. The patient is a documented DNR CCA on file. Physical therapy to continue to work with patient. This note was generated with [employer] dictation software. It may contain incorrect words, spelling, and punctuation that were not noted in checking the note before signing. Code Visit Inpatient E&M: 00997 Subs Hosp L2
--- NOTE | 2017-10-10 08:49 | PCM.PN.HOSP ---
Patient Problems: Active and Suspected Problems (Last Updated 06/23/17 @ 17:11 by Too Cote BUSINESS DEVELOPMENT PROFESSIONAL-C) multilobar HCAP (Acute) Acute respiratory failure with hypoxia (Acute) CHF (congestive heart failure) (Acute) Subjective: breathing well. Denies any new complaints. Vitals/I&O's: Vital Signs Temp Pulse Resp BP Pulse Ox 37.5 C H 87 20 H 120/62 98 10/10/17 08:00 10/10/17 08:00 10/10/17 08:00 10/10/17 08:00 10/10/17 08:00 Oxygen Flow Rate (L/min) 4 Oxygen Delivery Method Nasal Cannula Weight: 70.7 kg Body Mass Index (BMI) 30.7 Intake and Output for Last 24 Hours 10/08/17 10/09/17 10/10/17 23:59 23:59 23:59 Intake Total 855 / 855 749 / 749 213.2 / 213.2 Output Total 1325 / 1325 600 / 600 575 / 575 Balance -470 / -470 149 / 149 -361.8 / -361.8 General: Alert, Cooperative HEENT: Atraumatic, PERRLA Oral: Moist Mucosa, No Gingival or Mucosal Lesions/ Ulcerations Neck: No Nodes, Thyroid Normal Size and Texture Lungs: Diminished, - - bilateral crackles Cardiovascular: Regular rate, Regular Rhythm, Normal S1, Normal S2, No murmurs Abdomen: Bowel Sounds Present, Soft, Non Tender, Non-Distended Extremities: No edema, No Calf Tenderness Musculoskeletal: - - left hip wound covered (did not remove). non-tender. Psych/Mental Status: Normal Affect, Appropriate Microbiology Past 72 Hours 10/07/17 15:15 Blood Culture (Wb) - Left Hand Blood Culture - Preliminary No growth in 48 hours. 10/07/17 15:00 Blood Culture (Wb) - Right Hand Blood Culture - Preliminary No growth in 48 hours. 10/07/17 15:20 Urine Catheter - Yang Urine Culture - Preliminary Culture exhibits no growth. Laboratory Results 10/10/17 05:00: PT 16.5 H, INR 1.3 10/10/17 05:00: WBC 8.6, RBC 2.98 L, Hgb 8.7 L, Hct 27.8 L, MCV 93.3, MCH 29.2, MCHC 31.3 L, RDW 14.2, RDW Differential 48.3 H, Plt Count 346, MPV 9.8, Immature Gran % (Auto) 0.100, Neut % (Auto) 66.2, Lymph % (Auto) 13.3 L, [place] % (Auto) 9.9, Eos % (Auto) 10.3 H, Baso % (Auto) 0.2, Absolute Neuts (auto) 5.7, Absolute Lymphs (auto) 1.14, Total Counted Not Reportable, Differential Comment 10/10/17 05:00: Sodium 139, Potassium 3.8, Chloride 100, Carbon Dioxide 31.0, Anion Gap 8, BUN 10, Creatinine 0.53 L, Estim Creat Clear Calc 37.12, Est GFR (MDRD) Af Amer 143, Est GFR (MDRD) Non-Af 118, BUN/Creatinine Ratio 18.9, Glucose 85, Calcium 8.3 L Current Medications Acetaminophen (Tylenol) 650 mg PO Q4H PRN PRN PRN Reason: FEVER Last Admin: 10/09/17 15:11 Dose: 650 mg Acetaminophen (Tylenol) 650 mg RECTAL Q6H PRN PRN PRN Reason: temp>101 / Pain Last Admin: 10/04/17 19:46 Dose: 650 mg Albuterol Sulfate (Ventolin Aerosols) 2.5 mg INHALATION Q2H PRN PRN PRN Reason: SHORTNESS OF BREATH Last Admin: 10/02/17 20:26 Dose: 2.5 mg Amlodipine Besylate (Norvasc) 5 mg PO DAILY [facility] Last Admin: 10/09/17 09:34 Dose: 5 mg Aspirin (Ecotrin) 81 mg PO DAILY [facility] Last Admin: 10/09/17 09:33 Dose: 81 mg Atorvastatin Calcium (Lipitor) 20 mg PO QHS [facility] Last Admin: 10/09/17 22:40 Dose: 20 mg Calamine/Phenol (Calmoseptine Ointment) 1 applic TOPICAL BID [facility] PRN Reason: Protocol Last Admin: 10/09/17 22:39 Dose: 1 applicatio Carvedilol (Coreg) 25 mg PO BID [facility] Last Admin: 10/09/17 22:40 Dose: 25 mg Chlorhexidine Gluconate () 1 each TOPICAL DAILY [facility] Last Admin: 10/09/17 03:22 Dose: 1 each Enoxaparin Sodium (Lovenox) 80 mg 1 mg/kg (80 mg) SC Q12@0600,1800 [facility] Last Admin: 10/10/17 05:37 Dose: 80 mg Famotidine (Pepcid) 20 mg PO BID [facility] Last Admin: 10/09/17 22:39 Dose: 20 mg Furosemide (Lasix) 40 mg PO BID@1000,1800 [facility] Last Admin: 10/09/17 18:26 Dose: 40 mg Guaifenesin (Mucinex) 1,200 mg PO BID [facility] Last Admin: 10/09/17 22:40 Dose: 1,200 mg Piperacillin Sod/Tazobactam Sod (Zosyn) 3.375 gm in 50 mls @ 12.5 mls/hr IV Q8 [facility] Last Admin: 10/10/17 05:36 Dose: 12.5 mls/hr Labetalol HCl (Trandate) 10 mg IV Q4H PRN PRN PRN Reason: HR > 120 Last Admin: 10/02/17 23:06 Dose: 10 mg Lisinopril (Zestril) 40 mg PO DAILY [facility] Last Admin: 10/09/17 09:33 Dose: 40 mg Magnesium Oxide (Mag-Ox 400) 400 mg PO DAILY [facility] Last Admin: 10/09/17 09:33 Dose: 400 mg Nitroglycerin (Nitrostat) 0.4 mg SUBLINGUAL Q5M PRN PRN Reason: Chest Pain Nutritional Formula (Lactose Free) (Ensure Clear) 120 ml PO 4X/DAY [facility] Last Admin: 10/09/17 22:39 Dose: 120 ml Ondansetron HCl (Zofran) 4 mg IV Q8H PRN PRN PRN Reason: NAUSEA Last Admin: 10/08/17 10:52 Dose: 4 mg Senna/Docusate Sodium (Senokot-S, Dilia-Colace) 2 tablet PO BID PRN PRN PRN Reason: Constipation Sodium Chloride () 5 - 30 ml IV UD PRN PRN Reason: SALINE FLUSH Last Admin: 10/09/17 05:27 Dose: 10 ml Tramadol HCl (Ultram) 50 mg PO Q6H PRN PRN PRN Reason: PAIN Last Admin: 10/08/17 21:39 Dose: 50 mg Warfarin Sodium (Coumadin (Pbkc)) 5 mg PO DAILY@1700 [facility] Last Admin: 10/09/17 18:28 Dose: 5 mg Medical Necessity - Tobacco Use Smoking Status: Never smoker Assessment/Plan All Active Problems (Last Updated 06/23/17 @ 17:11 by Too Cote, BUSINESS DEVELOPMENT PROFESSIONAL-C) Surgical site infection (Resolved) multilobar HCAP (Acute) Acute respiratory failure with hypoxia (Acute) CHF (congestive heart failure) (Acute) Neck swelling (Acute) Accelerated hypertension (Resolved) Chest pain (Resolved) DVT of lower extremity (deep venous thrombosis) (Resolved) Nephrolithiasis (Resolved) 1. Acute hypoxic respiratory failure Multifactorial, due to CHF, pneumonia plus minus acute lung injury Improved today and patient is tolerating being off of BiPAP, at least for now. Appreciate input by critical care medicine CXR improving tolerating nasal cannula at this time. 2. Suspected gram-negative pneumonia/healthcare acquired pneumonia Sputum culture growing out coag negative staph, which I feel is probably contaminant. Continue with pulmonary toilet Continue with Zosyn 3. Heart failure with preserved ejection fraction Ejection fraction of 70% from left heart catheterization from September 24, 2015 Lasix transitioned over to oral. Continue with lisinopril and carvedilol 4. Atrial fibrillation with RVR Currently rate controlled On carvedilol. Continue with carvedilol for now. Early on weight-based Lovenox for anticoagulation at this time. given bioprsthetic AV, start coumadin 5. Non-STEMI Troponins were as high as 0.216 Suspect demand ischemia and given the patient's respiratory failure, pneumonia and heart failure. Troponin on was down to 0.073. Medical management for now. On ASA, coreg, lisinopril, statin 6. DVT prophylaxis with anticoagulation. 7. Fevers resolved ID on consult CT chest showed pneumonia. CT abd/pelvis showed seroma v abscess adjacent to left him incision. Ortho feels it is a post-op hematoma. 8. Disposition: eventually to SNF. await recs from ID and ortho. Anticipate discharge in next 24-48h. Code Visit Inpatient E&M: 69674 Subs Hosp L2
--- NOTE | 2017-10-10 08:58 | PCM.PN.CARD ---
Subjectve: Patient doing well from a cardiac standpoint. Telemetry shows atrial fibrillation with paced ventricular response. Patient continues to have low-grade fevers. Her left hip is clean/dry/intact without evidence of tenderness or inflammation. Objective: Vital Signs Temp Pulse Resp BP Pulse Ox 99.5 F H 87 20 H 120/62 98 10/10/17 08:00 10/10/17 08:00 10/10/17 08:00 10/10/17 08:00 10/10/17 08:00 Oxygen Flow Rate (L/min) 4 Oxygen Delivery Method Nasal Cannula Weight: 155 lb 13.869 oz Body Mass Index (BMI) 30.7 Intake and Output for Last 24 Hours 10/08/17 10/09/17 10/10/17 23:59 23:59 23:59 Intake Total 855 / 855 749 / 749 213.2 / 213.2 Output Total 1325 / 1325 600 / 600 575 / 575 Balance -470 / -470 149 / 149 -361.8 / -361.8 General: Awake, Alert, Oriented x 3 HEENT: PERRL, EOMI, Sclera Non Icteric Neck: Supple, Good ROM, No Lymph Node Enlargement Lungs: Clear to auscultation Cardiovascular: Irregular Rhythm, Normal S1, Normal S2, No Murmurs, No Rubs, No Gallops Vascular: No Carotid Bruits, Normal Femoral Pulses, Normal Radial Pulses, Normal Dorsalis Pedal Pulse, Normal Posterior Tibial Pulses Abdomen: Bowel Sounds Present, Soft, Non Tender, No HSM, No Organomegaly Extremities: No Cyanosis, No Clubbing, No edema Neurological: No Focal Motor or Sensory Deficit 10/10/17 05:00: PT 16.5 H, INR 1.3 10/10/17 05:00: WBC 8.6, RBC 2.98 L, Hgb 8.7 L, Hct 27.8 L, MCV 93.3, MCH 29.2, MCHC 31.3 L, RDW 14.2, RDW Differential 48.3 H, Plt Count 346, MPV 9.8, Immature Gran % (Auto) 0.100, Neut % (Auto) 66.2, Lymph % (Auto) 13.3 L, [place] % (Auto) 9.9, Eos % (Auto) 10.3 H, Baso % (Auto) 0.2, Absolute Neuts (auto) 5.7, Total Counted Not Reportable 10/10/17 05:00: Sodium 139, Potassium 3.8, Chloride 100, Carbon Dioxide 31.0, Anion Gap 8, BUN 10, Creatinine 0.53 L, Est GFR (MDRD) Af Amer 143, Est GFR (MDRD) Non-Af 118, BUN/Creatinine Ratio 18.9, Glucose 85, Calcium 8.3 L Rhythm: EKG: ECHO: Stress Test: Cardiac Cath: PCI: CT Surgery: Holter monitor: EPS: PPM: CXR: Chest CT Scan: Medical Necessity - Tobacco Use Smoking Status: Never smoker Assessment/Plan 1. Atrial fibrillation: Patient's heart rate appears to be fairly well-controlled with beta-hal therapy. She has been loaded with Coumadin therapy. Her INRs between 2.0 and 3.0. Continue Lovenox until INR is therapeutic for both atrial fibrillation and DVT prophylaxis. 2. Paroxysmal ventricular tachycardia She reportedly has a history of paroxysmal ventricular tachycardia. She will continue to be monitored. No V. tach noted on telemetry over 24 hours. She will continue medical management with her beta-hal therapy. No ventricular tachycardia detected on telemetry last evening. We will hold on antiarrhythmic therapy at this time. She does have an ICD in place. 3. CHF She does not appear to have signs and symptoms compatible with underlying CHF at this time. This may be brought out by her underlying pulmonary disease process superimposed upon her cardiovascular disease process. Overall she appears to improve with her diuresis. Her IV diuretics have been changed to oral diuretics. If she begins to retain fluid she may need to be placed back on IV diuretics. 4. Cardiomyopathy Patient's EF shows normal LV function, and severe pulmonary hypertension. Patient has stable appearing aortic valvular apparatus. Continue diuretic therapy. No indication for catheterization or RACHEL at this time. 5. CAD status post RANDLE to the LAD At the time of her surgery she received a RANDLE to the LAD. She does have an indeterminate troponin. It is unclear as or whether this is a primary acute coronary syndrome event versus more likely being related to a type II event from supply demand mismatch secondary to her underlying acute pulmonary disease process superimposed upon her chronic cardiovascular disease process. At the moment would be reasonable to continue her medical management. She can be reassessed as deemed appropriate. No plans for catheterization or stress test at this time 6. Status post aortic valve replacement-bioprosthetic The patient is status post the aforementioned surgery. She has undergone further evaluation with a transthoracic echocardiogram. Her aortic valve apparatus was stable. (Please see official/complete report) 7. ICD The patient does have an underlying ICD in place. It is a biventricular device. It is a [employer]IST-D model # N164 serial #[id number] implanted on 05/20/2012. 8. Hypertension The patient will continue have her blood pressures monitored. She will be reassessed as needed. 9. Hyperlipidemia The patient will continue lipid-lowering therapy as deemed appropriate. 10. Pneumonia She did have a CT scan of the chest. Per the radiology report appears there are still concerns of pneumonia. She will continue evaluation care per internal medicine and pulmonology. Overall, from a cardiovascular standpoint, she is continuing conservative medical management at this time for her multiple cardiovascular conditions. There are no immediate plans for additional cardiovascular diagnostic studies, especially invasive, at this time. 11. We will sign off. Please call with any questions. Thank you very much for the opportunity to put dissipate in the cardiac care of the patient. Code Visit Inpatient E&M: [id number] Subs Hosp L2
--- NOTE | 2017-10-10 09:00 | PN_ITS ---
Patient Problems: Active and Suspected Problems (Last Updated 06/23/17 @ 17:11 by Too Cote CLEARING INSPECTOR- C) multilobar HCAP (Acute) Acute respiratory failure with hypoxia (Acute) CHF (congestive heart failure) (Acute) Subjective: breathing well. Denies any new complaints. Vitals/I&O's: Vital Signs Temp Pulse Resp BP Pulse Ox 37.5 C H 87 20 H 120/62 98 10/10/17 08:00 10/10/17 08:00 10/10/17 08:00 10/10/17 08:00 10/10/17 08:00 Oxygen Flow Rate (L/min) 4 Oxygen Delivery Method Nasal Cannula Weight: 70.7 kg Body Mass Index (BMI) 30.7 Intake and Output for Last 24 Hours 10/08/17 10/09/17 10/10/17 23:59 23:59 23:59 Intake Total 855 / 855 749 / 749 213.2 / 213.2 Output Total 1325 / 1325 600 / 600 575 / 575 Balance -470 / -470 149 / 149 -361.8 / -361.8 General: Alert, Cooperative HEENT: Atraumatic, PERRLA Oral: Moist Mucosa, No Gingival or Mucosal Lesions/ Ulcerations Neck: No Nodes, Thyroid Normal Size and Texture Lungs: Diminished, - - bilateral crackles Cardiovascular: Regular rate, Regular Rhythm, Normal S1, Normal S2, No murmurs Abdomen: Bowel Sounds Present, Soft, Non Tender, Non-Distended Extremities: No edema, No Calf Tenderness Musculoskeletal: - - left hip wound covered (did not remove). non-tender. Psych/Mental Status: Normal Affect, Appropriate Microbiology Past 72 Hours 10/07/17 15:15 Blood Culture (Wb) - Left Hand Blood Culture - Preliminary No growth in 48 hours. 10/07/17 15:00 Blood Culture (Wb) - Right Hand Blood Culture - Preliminary No growth in 48 hours. 10/07/17 15:20 Urine Catheter - Yang Urine Culture - Preliminary Culture exhibits no growth. Laboratory Results 10/10/17 05:00: PT 16.5 H, INR 1.3 10/10/17 05:00: WBC 8.6, RBC 2.98 L, Hgb 8.7 L, Hct 27.8 L, MCV 93.3, MCH 29.2, MCHC 31.3 L, RDW 14.2, RDW Differential 48.3 H, Plt Count 346, MPV 9.8, Immature Gran % (Auto) 0.100, Neut % (Auto) 66.2, Lymph % (Auto) 13.3 L, [place] % (Auto) 9.9, Eos % (Auto) 10.3 H, Baso % (Auto) 0.2, Absolute Neuts (auto) 5.7, Absolute Lymphs (auto) 1.14, Total Counted Not Reportable, Differential Comment 10/10/17 05:00: Sodium 139, Potassium 3.8, Chloride 100, Carbon Dioxide 31.0, Anion Gap 8, BUN 10, Creatinine 0.53 L, Estim Creat Clear Calc 37.12, Est GFR ( MDRD) Af Amer 143, Est GFR (MDRD) Non-Af 118, BUN/Creatinine Ratio 18.9, Glucose 85, Calcium 8.3 L Current Medications Acetaminophen (Tylenol) 650 mg PO Q4H PRN PRN PRN Reason: FEVER Last Admin: 10/09/17 15:11 Dose: 650 mg Acetaminophen (Tylenol) 650 mg RECTAL Q6H PRN PRN PRN Reason: temp>101 / Pain Last Admin: 10/04/17 19:46 Dose: 650 mg Albuterol Sulfate (Ventolin Aerosols) 2.5 mg INHALATION Q2H PRN PRN PRN Reason: SHORTNESS OF BREATH Last Admin: 10/02/17 20:26 Dose: 2.5 mg Amlodipine Besylate (Norvasc) 5 mg PO DAILY [facility] Last Admin: 10/09/17 09:34 Dose: 5 mg Aspirin (Ecotrin) 81 mg PO DAILY [facility] Last Admin: 10/09/17 09:33 Dose: 81 mg Atorvastatin Calcium (Lipitor) 20 mg PO QHS [facility] Last Admin: 10/09/17 22:40 Dose: 20 mg Calamine/Phenol (Calmoseptine Ointment) 1 applic TOPICAL BID [facility] PRN Reason: Protocol Last Admin: 10/09/17 22:39 Dose: 1 applicatio Carvedilol (Coreg) 25 mg PO BID [facility] Last Admin: 10/09/17 22:40 Dose: 25 mg Chlorhexidine Gluconate () 1 each TOPICAL DAILY [facility] Last Admin: 10/09/17 03:22 Dose: 1 each Enoxaparin Sodium (Lovenox) 80 mg 1 mg/kg (80 mg) SC Q12@0600,1800 [facility] Last Admin: 10/10/17 05:37 Dose: 80 mg Famotidine (Pepcid) 20 mg PO BID [facility] Last Admin: 10/09/17 22:39 Dose: 20 mg Furosemide (Lasix) 40 mg PO BID@1000,1800 [facility] Last Admin: 10/09/17 18:26 Dose: 40 mg Guaifenesin (Mucinex) 1,200 mg PO BID [facility] Last Admin: 10/09/17 22:40 Dose: 1,200 mg Piperacillin Sod/Tazobactam Sod (Zosyn) 3.375 gm in 50 mls @ 12.5 mls/hr IV Q8 [facility] Last Admin: 10/10/17 05:36 Dose: 12.5 mls/hr Labetalol HCl (Trandate) 10 mg IV Q4H PRN PRN PRN Reason: HR > 120 Last Admin: 10/02/17 23:06 Dose: 10 mg Lisinopril (Zestril) 40 mg PO DAILY [facility] Last Admin: 10/09/17 09:33 Dose: 40 mg Magnesium Oxide (Mag-Ox 400) 400 mg PO DAILY [facility] Last Admin: 10/09/17 09:33 Dose: 400 mg Nitroglycerin (Nitrostat) 0.4 mg SUBLINGUAL Q5M PRN PRN Reason: Chest Pain Nutritional Formula (Lactose Free) (Ensure Clear) 120 ml PO 4X/DAY [facility] Last Admin: 10/09/17 22:39 Dose: 120 ml Ondansetron HCl (Zofran) 4 mg IV Q8H PRN PRN PRN Reason: NAUSEA Last Admin: 10/08/17 10:52 Dose: 4 mg Senna/Docusate Sodium (Senokot-S, Dilia-Colace) 2 tablet PO BID PRN PRN PRN Reason: Constipation Sodium Chloride () 5 - 30 ml IV UD PRN PRN Reason: SALINE FLUSH Last Admin: 10/09/17 05:27 Dose: 10 ml Tramadol HCl (Ultram) 50 mg PO Q6H PRN PRN PRN Reason: PAIN Last Admin: 10/08/17 21:39 Dose: 50 mg Warfarin Sodium (Coumadin (Pbkc)) 5 mg PO DAILY@1700 [facility] Last Admin: 10/09/17 18:28 Dose: 5 mg Medical Necessity - Tobacco Use Smoking Status: Never smoker Assessment/Plan All Active Problems (Last Updated 06/23/17 @ 17:11 by Too Cote, CLEARING INSPECTOR-C) Surgical site infection (Resolved) multilobar HCAP (Acute) Acute respiratory failure with hypoxia (Acute) CHF (congestive heart failure) (Acute) Neck swelling (Acute) Accelerated hypertension (Resolved) Chest pain (Resolved) DVT of lower extremity (deep venous thrombosis) (Resolved) Nephrolithiasis (Resolved) 1. Acute hypoxic respiratory failure * Multifactorial, due to CHF, pneumonia plus minus acute lung injury * Improved today and patient is tolerating being off of BiPAP, at least for now. * Appreciate input by critical care medicine * CXR improving * tolerating nasal cannula at this time. 2. Suspected gram-negative pneumonia/healthcare acquired pneumonia * Sputum culture growing out coag negative staph, which I feel is probably contaminant. * Continue with pulmonary toilet * Continue with Zosyn 3. Heart failure with preserved ejection fraction * Ejection fraction of 70% from left heart catheterization from September 24, 2015 * Lasix transitioned over to oral. * Continue with lisinopril and carvedilol 4. Atrial fibrillation with RVR * Currently rate controlled * On carvedilol. * Continue with carvedilol for now. * Early on weight-based Lovenox for anticoagulation at this time. * given bioprsthetic AV, start coumadin 5. Non-STEMI * Troponins were as high as 0.216 * Suspect demand ischemia and given the patient's respiratory failure, pneumonia and heart failure. * Troponin on was down to 0.073. * Medical management for now. * On ASA, coreg, lisinopril, statin 6. DVT prophylaxis with anticoagulation. 7. Fevers * resolved * ID on consult * CT chest showed pneumonia. * CT abd/pelvis showed seroma v abscess adjacent to left him incision. Ortho feels it is a post-op hematoma. 8. Disposition: eventually to SNF. await recs from ID and ortho. Anticipate discharge in next 24-48h. Code Visit Inpatient E&M: 13684 Subs Hosp L2
--- NOTE | 2017-10-10 09:03 | PN.CARD_ITS ---
Subjectve: Patient doing well from a cardiac standpoint. Telemetry shows atrial fibrillation with paced ventricular response. Patient continues to have low- grade fevers. Her left hip is clean/dry/intact without evidence of tenderness or inflammation. Objective: Vital Signs Temp Pulse Resp BP Pulse Ox 99.5 F H 87 20 H 120/62 98 10/10/17 08:00 10/10/17 08:00 10/10/17 08:00 10/10/17 08:00 10/10/17 08:00 Oxygen Flow Rate (L/min) 4 Oxygen Delivery Method Nasal Cannula Weight: 155 lb 13.869 oz Body Mass Index (BMI) 30.7 Intake and Output for Last 24 Hours 10/08/17 10/09/17 10/10/17 23:59 23:59 23:59 Intake Total 855 / 855 749 / 749 213.2 / 213.2 Output Total 1325 / 1325 600 / 600 575 / 575 Balance -470 / -470 149 / 149 -361.8 / -361.8 General: Awake, Alert, Oriented x 3 HEENT: PERRL, EOMI, Sclera Non Icteric Neck: Supple, Good ROM, No Lymph Node Enlargement Lungs: Clear to auscultation Cardiovascular: Irregular Rhythm, Normal S1, Normal S2, No Murmurs, No Rubs, No Gallops Vascular: No Carotid Bruits, Normal Femoral Pulses, Normal Radial Pulses, Normal Dorsalis Pedal Pulse, Normal Posterior Tibial Pulses Abdomen: Bowel Sounds Present, Soft, Non Tender, No HSM, No Organomegaly Extremities: No Cyanosis, No Clubbing, No edema Neurological: No Focal Motor or Sensory Deficit 10/10/17 05:00: PT 16.5 H, INR 1.3 10/10/17 05:00: WBC 8.6, RBC 2.98 L, Hgb 8.7 L, Hct 27.8 L, MCV 93.3, MCH 29.2, MCHC 31.3 L, RDW 14.2, RDW Differential 48.3 H, Plt Count 346, MPV 9.8, Immature Gran % (Auto) 0.100, Neut % (Auto) 66.2, Lymph % (Auto) 13.3 L, [place] % (Auto) 9.9, Eos % (Auto) 10.3 H, Baso % (Auto) 0.2, Absolute Neuts (auto) 5.7, Total Counted Not Reportable 10/10/17 05:00: Sodium 139, Potassium 3.8, Chloride 100, Carbon Dioxide 31.0, Anion Gap 8, BUN 10, Creatinine 0.53 L, Est GFR (MDRD) Af Amer 143, Est GFR ( MDRD) Non-Af 118, BUN/Creatinine Ratio 18.9, Glucose 85, Calcium 8.3 L Rhythm: EKG: ECHO: Stress Test: Cardiac Cath: PCI: CT Surgery: Holter monitor: EPS: PPM: CXR: Chest CT Scan: Medical Necessity - Tobacco Use Smoking Status: Never smoker Assessment/Plan 1. Atrial fibrillation: Patient's heart rate appears to be fairly well- controlled with beta-hal therapy. She has been loaded with Coumadin therapy. Her INRs between 2.0 and 3.0. Continue Lovenox until INR is therapeutic for both atrial fibrillation and DVT prophylaxis. 2. Paroxysmal ventricular tachycardia She reportedly has a history of paroxysmal ventricular tachycardia. She will continue to be monitored. No V. tach noted on telemetry over 24 hours. She will continue medical management with her beta-hal therapy. No ventricular tachycardia detected on telemetry last evening. We will hold on antiarrhythmic therapy at this time. She does have an ICD in place. 3. CHF She does not appear to have signs and symptoms compatible with underlying CHF at this time. This may be brought out by her underlying pulmonary disease process superimposed upon her cardiovascular disease process. Overall she appears to improve with her diuresis. Her IV diuretics have been changed to oral diuretics. If she begins to retain fluid she may need to be placed back on IV diuretics. 4. Cardiomyopathy Patient's EF shows normal LV function, and severe pulmonary hypertension. Patient has stable appearing aortic valvular apparatus. Continue diuretic therapy. No indication for catheterization or RACHEL at this time. 5. CAD status post RANDLE to the LAD At the time of her surgery she received a RANDLE to the LAD. She does have an indeterminate troponin. It is unclear as or whether this is a primary acute coronary syndrome event versus more likely being related to a type II event from supply demand mismatch secondary to her underlying acute pulmonary disease process superimposed upon her chronic cardiovascular disease process. At the moment would be reasonable to continue her medical management. She can be reassessed as deemed appropriate. No plans for catheterization or stress test at this time 6. Status post aortic valve replacement-bioprosthetic The patient is status post the aforementioned surgery. She has undergone further evaluation with a transthoracic echocardiogram. Her aortic valve apparatus was stable. (Please see official/complete report) 7. ICD The patient does have an underlying ICD in place. It is a biventricular device. It is a [employer] EXTRUSION OPERATOR-D model # N164 serial #[id number] implanted on 05/20/2012. 8. Hypertension The patient will continue have her blood pressures monitored. She will be reassessed as needed. 9. Hyperlipidemia The patient will continue lipid-lowering therapy as deemed appropriate. 10. Pneumonia She did have a CT scan of the chest. Per the radiology report appears there are still concerns of pneumonia. She will continue evaluation care per internal medicine and pulmonology. Overall, from a cardiovascular standpoint, she is continuing conservative medical management at this time for her multiple cardiovascular conditions. There are no immediate plans for additional cardiovascular diagnostic studies, especially invasive, at this time. 11. We will sign off. Please call with any questions. Thank you very much for the opportunity to put dissipate in the cardiac care of the patient. Code Visit Inpatient E&M: 92038 Subs Hosp L2
[2017-10-10] MEDS: Menthol/Lanolin/Calamine/Znox 113 GM Tube 1 APPLIC TOPICAL ×2 (09:48→21:35)
[2017-10-10] MEDS: CHLORHEXIDINE GLUC 2% CLOTH 1 EACH TOWELETTE TOPICAL (09:48)
[2017-10-10] MEDS: amLODIPine 5 MG Tablet PO (09:49)
[2017-10-10] MEDS: Furosemide 40 MG Tablet PO ×2 (09:49→17:05)
[2017-10-10] MEDS: Carvedilol 25 MG Tablet PO ×2 (09:49→21:36)
[2017-10-10] MEDS: guaiFENesin 1,200 MG Tablet 1200 MG PO ×2 (09:49→21:36)
[2017-10-10] MEDS: Aspirin E.C. 81 MG Tablet PO (09:49)
[2017-10-10] MEDS: Magnesium Oxide 400 MG Tablet PO (09:49)
[2017-10-10] MEDS: Lisinopril 40 MG Tablet PO (09:50)
[2017-10-10] MEDS: Famotidine 20 MG Tablet PO ×2 (09:50→21:37)
--- NOTE | 2017-10-10 10:49 | PCM.PN.BLA ---
Progress Note Called to patient's bedside to reexamine left thigh secondary to CT scan obtained yesterday showing some fluid deep to the incision. Likely a seroma wanted to rule out any source of infection as patient does continue to have low-grade fever while on broad-spectrum antibiotics. Incision was examined leg was examined. Clean dry and intact no excessive swelling. Patient has no tenderness palpation around the area fluid pocket is not distinctly palpable. There is no erythema appreciable around the thigh. Patient is doing well from an orthopedic standpoint at this time. I do not feel that the fluid collection is related to recurrent infection most likely postoperative seroma. Will reexamine tomorrow document serial examination. [facility] Office:
[2017-10-10] MEDS: Albuterol 2.5 MG/3 ML VIAL.NEB. INHALATION (18:52)
[2017-10-10] MEDS: Atorvastatin Calcium 20 MG Tablet PO (21:36)
[2017-10-11] VITALS (8 sets, daily range): BP systolic 118–128; BP diastolic 64–66; PULSE 71–88; RESP 12–24; TEMP 36.8–37.1; O2SAT 93–98
[2017-10-11] MEDS: Enoxaparin 80 MG/0.8 ML Syringe SC (05:53)
[2017-10-11] MEDS: Piperacil/Tazobactam 3.375 GM/50 ML ML IV ×2 (05:53→13:02)
[2017-10-11 06:04] LABS: International Normalized Ratio 1.6; Prothrombin Time (Protime)PT. 19.5 SECONDS (11.7-14.9)
--- NOTE | 2017-10-11 08:10 | PCM.PROGNOTE ---
Patient Problems: Active and Suspected Problems (Last Updated 06/23/17 @ 17:11 by Too Cote NP-C) multilobar HCAP (Acute) Acute respiratory failure with hypoxia (Acute) CHF (congestive heart failure) (Acute) Subjective: The patient was seen and examined at the bedside this morning. Events from the last 24 hours have been reviewed. The patient is currently afebrile, hemodynamically stable and maintaining appropriate oxygen saturations. The patient supplemental oxygen was able to be weaned yesterday. She was placed on BiPAP therapy while sleeping overnight. Objective: The patient's most recent lab work, culture data and imaging studies have all been personally reviewed. C. difficile was negative. Respiratory viral panel was negative. Strep and urine Legionella antigens were both negative. Blood and urine cultures have been negative. Surface echocardiogram dated July 2016 revealed normal LV size and function with an ejection fraction of 55%. Pulmonary artery systolic pressure was estimated to be 48 mmHg. - Physical Exam General: Alert, Cooperative, No apparent distress HEENT: Atraumatic, PERRLA, Normocephalic Oral: No Gingival or Mucosal Lesions/ Ulcerations Neck: Supple, No Nodes, Trachea Midline Lungs: No rhonchi, No wheeze, No rales, Diminished Cardiovascular: Normal S1, Normal S2, No murmurs, Irregular Rate Abdomen: Bowel Sounds Present, Soft, Non Tender Extremities: No clubbing, No cyanosis, No edema Skin: - - No significant change from previous. Musculoskeletal: No Tenderness to Palpation of Joints or Extremities Lymphatic: No Cervical, Supraclavicular, or Inguinal Adenopathy Neurological: Neuro grossly intact Psych/Mental Status: Normal Affect, Appropriate Vital Signs Temp Pulse Resp BP Pulse Ox 98.3 F 71 20 H 118/64 96 10/11/17 03:35 10/11/17 07:40 10/11/17 07:40 10/11/17 03:35 10/11/17 07:40 Oxygen Flow Rate (L/min) 3 Oxygen Delivery Method Bi-pap Weight: 154 lb 12.232 oz Body Mass Index (BMI) 30.7 Intake and Output for Last 24 Hours 10/09/17 10/10/17 10/11/17 23:59 23:59 23:59 Intake Total 749 / 749 421.7 / 421.7 170.0 / 170.0 Output Total 600 / 600 950 / 950 550 / 550 Balance 149 / 149 -528.3 / -528.3 -380.0 / -380.0 Microbiology Past 72 Hours 10/07/17 15:20 Urine Culture - Final Urine Catheter - Yang Culture exhibits no growth. 10/07/17 15:15 Blood Culture - Preliminary Blood Culture (Wb) - Left Hand No growth in 48 hours. 10/07/17 15:00 Blood Culture - Preliminary Blood Culture (Wb) - Right Hand No growth in 48 hours. Laboratory Tests Past 24 Hrs 10/11/17 05:22 PT 19.5 H INR 1.6 Labs (Last 48 Hours) 10/10/17 10/10/17 10/10/17 05:00 05:00 05:00 WBC 8.6 RBC 2.98 L Hgb 8.7 L Hct 27.8 L MCV 93.3 MCH 29.2 MCHC 31.3 L RDW 14.2 RDW Differential 48.3 H Plt Count 346 MPV 9.8 Immature Gran % (Auto) 0.100 Neut % (Auto) 66.2 Lymph % (Auto) 13.3 L [place] % (Auto) 9.9 Eos % (Auto) 10.3 H Baso % (Auto) 0.2 Absolute Neuts (auto) 5.7 Absolute Lymphs (auto) 1.14 Total Counted Not Reportable Differential Comment PT 16.5 H INR 1.3 Sodium 139 Potassium 3.8 Chloride 100 Carbon Dioxide 31.0 Anion Gap 8 BUN 10 Creatinine 0.53 L Estim Creat Clear Calc 37.12 Est GFR (MDRD) Af Amer 143 Est GFR (MDRD) Non-Af 118 BUN/Creatinine Ratio 18.9 Glucose 85 Calcium 8.3 L 10/11/17 05:22 WBC RBC Hgb Hct MCV MCH MCHC RDW RDW Differential Plt Count MPV Immature Gran % (Auto) Neut % (Auto) Lymph % (Auto) [place] % (Auto) Eos % (Auto) Baso % (Auto) Absolute Neuts (auto) Absolute Lymphs (auto) Total Counted Differential Comment PT 19.5 H INR 1.6 Sodium Potassium Chloride Carbon Dioxide Anion Gap BUN Creatinine Estim Creat Clear Calc Est GFR (MDRD) Af Amer Est GFR (MDRD) Non-Af BUN/Creatinine Ratio Glucose Calcium Microbiology 10/07/17 15:20 Urine Catheter - Yang Urine Culture - Final Culture exhibits no growth. 10/07/17 15:15 Blood Culture (Wb) - Left Hand Blood Culture - Preliminary No growth in 48 hours. 10/07/17 15:00 Blood Culture (Wb) - Right Hand Blood Culture - Preliminary No growth in 48 hours. Clinical Impression(s) from Imaging Studies Chest X-Ray 09/30/17 22:05 IMPRESSION: Multiple bilateral perihilar nodules or nodular-type infiltrates more severe on the right. This probably represents pulmonary edema however cannot exclude inflammatory disease or neoplasm. Clinical correlation recommended Electronically Signed: Zac Chandler MD at 22:48 EDT , Service support , Chest X-Ray 10/01/17 07:10 IMPRESSION: Progressive bilateral airspace disease worse in the right hemithorax. Electronically Signed: Reggie Castillo MD at 9:37 EDT Tel [phone], Service support , Chest X-Ray 10/02/17 03:10 IMPRESSION: No significant change since previous examination. Extensive bilateral infiltrates markedly worse on the right side. Lucency in the left upper chest as described above. Follow-up examination is recommended. Electronically Signed: Art Joseph MD at 3:48 EDT Tel , Service support , Chest X-Ray 10/03/17 08:14 IMPRESSION: Bilateral infiltrates essentially unchanged since prior examination. Electronically Signed: Art Joseph MD at 9:23 EDT Tel , Service support , Chest X-Ray 10/06/17 06:21 IMPRESSION: Persistent bilateral infiltrates worse on the right side. There has been mild improvement as compared to prior study. Further follow-up is recommended. Electronically Signed: Reggie Castillo MD at 8:18 EDT Tel [phone], Service support , Abdomen/Pelvis CT 10/08/17 09:18 IMPRESSION: 1. Slender fluid collection associated with the left hip incision, probably representing seroma. Abscess cannot be entirely excluded. 2. Diffuse induration in the presacral fat of the pelvis, of uncertain significance. 3. Small focus of asymmetric thickening of the wall of the rectosigmoid, of uncertain significance. Consider follow-up colonoscopy. 4. Bilateral lower lobe pneumonia. Minimal left effusion. 5. Large sliding hiatal hernia containing the majority of the stomach. Electronically Signed: Gelacio Tammy, at 13:02 EDT Tel , Service support , Chest CT 10/08/17 09:18 IMPRESSION: Bilateral multilobar pneumonia. Chronic cardiac disease. Large sliding hiatal hernia. Small thyroid nodules. Electronically Signed: Gelacio Munoz, at 13:07 EDT Tel , Service support , Medical Necessity - Tobacco Use Smoking Status: Never smoker Assessment/Plan All Active Problems (Last Updated 06/23/17 @ 17:11 by Too Cote NP-C) Surgical site infection (Resolved) multilobar HCAP (Acute) Acute respiratory failure with hypoxia (Acute) CHF (congestive heart failure) (Acute) Neck swelling (Acute) Accelerated hypertension (Resolved) Chest pain (Resolved) DVT of lower extremity (deep venous thrombosis) (Resolved) Nephrolithiasis (Resolved) RECOMMENDATIONS: 1. Continue antibiotics per ID recommendations 2. Continue nocturnal BiPAP. Wean supplemental oxygen as tolerated. Goal to maintain oxygen saturations at or above 90%. 3. Continue Lasix. 4. Rate/rhythm control per cardiology recommendations. 5. Encourage incentive spirometer use and mobilize patient as tolerated. 6. Perform walking oximetry prior to consideration for discharge from the hospital. IMPRESSIONS: 1. Acute hypoxemic respiratory failure, secondary to healthcare associated pneumonia The patient presented with dyspnea and required the initiation of BiPAP support. She has responded favorably from a clinical perspective to the use of BiPAP and broad-spectrum antibiotics in treatment for multifocal pneumonia. Antibiotics will be continued per infectious diseases recommendations. Continue to wean supplemental oxygen to maintain saturations at or above 90%. Encourage incentive spirometer use and mobilize patient as tolerated. Continue Lasix as ordered. Perform walking oximetry study prior to consideration for discharge from the hospital. 2. Atrial fibrillation with RVR/Personal history of coronary artery disease status post CABG/aortic valve disease status post replacement/ICD in situ Continue rate/rhythm control therapy per cardiology recommendations. 3. 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 This appears to have resolved at this time. 4. Advanced age/neuropathy/hypertension/hyperlipidemia/GERD Complicates care, management, recovery and prognosis. The patient is a documented DNR CCA on file. Physical therapy to continue to work with patient. This note was generated with [employer] dictation software. It may contain incorrect words, spelling, and punctuation that were not noted in checking the note before signing. Code Visit Inpatient E&M: [id number] Subs Hosp L2
--- NOTE | 2017-10-11 08:14 | PN_ITS ---
Patient Problems: Active and Suspected Problems (Last Updated 06/23/17 @ 17:11 by Too Cote NP- C) multilobar HCAP (Acute) Acute respiratory failure with hypoxia (Acute) CHF (congestive heart failure) (Acute) Subjective: The patient was seen and examined at the bedside this morning. Events from the last 24 hours have been reviewed. The patient is currently afebrile, hemodynamically stable and maintaining appropriate oxygen saturations. The patient supplemental oxygen was able to be weaned yesterday. She was placed on BiPAP therapy while sleeping overnight. Objective: The patient's most recent lab work, culture data and imaging studies have all been personally reviewed. C. difficile was negative. Respiratory viral panel was negative. Strep and urine Legionella antigens were both negative. Blood and urine cultures have been negative. Surface echocardiogram dated July 2016 revealed normal LV size and function with an ejection fraction of 55%. Pulmonary artery systolic pressure was estimated to be 48 mmHg. - Physical Exam General: Alert, Cooperative, No apparent distress HEENT: Atraumatic, PERRLA, Normocephalic Oral: No Gingival or Mucosal Lesions/ Ulcerations Neck: Supple, No Nodes, Trachea Midline Lungs: No rhonchi, No wheeze, No rales, Diminished Cardiovascular: Normal S1, Normal S2, No murmurs, Irregular Rate Abdomen: Bowel Sounds Present, Soft, Non Tender Extremities: No clubbing, No cyanosis, No edema Skin: - - No significant change from previous. Musculoskeletal: No Tenderness to Palpation of Joints or Extremities Lymphatic: No Cervical, Supraclavicular, or Inguinal Adenopathy Neurological: Neuro grossly intact Psych/Mental Status: Normal Affect, Appropriate Vital Signs Temp Pulse Resp BP Pulse Ox 98.3 F 71 20 H 118/64 96 10/11/17 03:35 10/11/17 07:40 10/11/17 07:40 10/11/17 03:35 10/11/17 07:40 Oxygen Flow Rate (L/min) 3 Oxygen Delivery Method Bi-pap Weight: 154 lb 12.232 oz Body Mass Index (BMI) 30.7 Intake and Output for Last 24 Hours 10/09/17 10/10/17 10/11/17 23:59 23:59 23:59 Intake Total 749 / 749 421.7 / 421.7 170.0 / 170.0 Output Total 600 / 600 950 / 950 550 / 550 Balance 149 / 149 -528.3 / -528.3 -380.0 / -380.0 Microbiology Past 72 Hours 10/07/17 15:20 Urine Culture - Final Urine Catheter - Yang Culture exhibits no growth. 10/07/17 15:15 Blood Culture - Preliminary Blood Culture (Wb) - Left Hand No growth in 48 hours. 10/07/17 15:00 Blood Culture - Preliminary Blood Culture (Wb) - Right Hand No growth in 48 hours. Laboratory Tests Past 24 Hrs 10/11/17 05:22 PT 19.5 H INR 1.6 Labs (Last 48 Hours) 10/10/17 10/10/17 10/10/17 05:00 05:00 05:00 WBC 8.6 RBC 2.98 L Hgb 8.7 L Hct 27.8 L MCV 93.3 MCH 29.2 MCHC 31.3 L RDW 14.2 RDW Differential 48.3 H Plt Count 346 MPV 9.8 Immature Gran % (Auto) 0.100 Neut % (Auto) 66.2 Lymph % (Auto) 13.3 L [place] % (Auto) 9.9 Eos % (Auto) 10.3 H Baso % (Auto) 0.2 Absolute Neuts (auto) 5.7 Absolute Lymphs (auto) 1.14 Total Counted Not Reportable Differential Comment PT 16.5 H INR 1.3 Sodium 139 Potassium 3.8 Chloride 100 Carbon Dioxide 31.0 Anion Gap 8 BUN 10 Creatinine 0.53 L Estim Creat Clear Calc 37.12 Est GFR (MDRD) Af Amer 143 Est GFR (MDRD) Non-Af 118 BUN/Creatinine Ratio 18.9 Glucose 85 Calcium 8.3 L 10/11/17 05:22 WBC RBC Hgb Hct MCV MCH MCHC RDW RDW Differential Plt Count MPV Immature Gran % (Auto) Neut % (Auto) Lymph % (Auto) [place] % (Auto) Eos % (Auto) Baso % (Auto) Absolute Neuts (auto) Absolute Lymphs (auto) Total Counted Differential Comment PT 19.5 H INR 1.6 Sodium Potassium Chloride Carbon Dioxide Anion Gap BUN Creatinine Estim Creat Clear Calc Est GFR (MDRD) Af Amer Est GFR (MDRD) Non-Af BUN/Creatinine Ratio Glucose Calcium Microbiology 10/07/17 15:20 Urine Catheter - Yang Urine Culture - Final Culture exhibits no growth. 10/07/17 15:15 Blood Culture (Wb) - Left Hand Blood Culture - Preliminary No growth in 48 hours. 10/07/17 15:00 Blood Culture (Wb) - Right Hand Blood Culture - Preliminary No growth in 48 hours. Clinical Impression(s) from Imaging Studies Chest X-Ray 09/30/17 22:05 IMPRESSION: Multiple bilateral perihilar nodules or nodular-type infiltrates more severe on the right. This probably represents pulmonary edema however cannot exclude inflammatory disease or neoplasm. Clinical correlation recommended Electronically Signed: Zac Chandler MD at 22:48 EDT , Service support , Chest X-Ray 10/01/17 07:10 IMPRESSION: Progressive bilateral airspace disease worse in the right hemithorax. Electronically Signed: Reggie Castillo MD at 9:37 EDT Tel [phone], Service support , Chest X-Ray 10/02/17 03:10 IMPRESSION: No significant change since previous examination. Extensive bilateral infiltrates markedly worse on the right side. Lucency in the left upper chest as described above. Follow-up examination is recommended. Electronically Signed: Art Joseph MD at 3:48 EDT Tel , Service support , Chest X-Ray 10/03/17 08:14 IMPRESSION: Bilateral infiltrates essentially unchanged since prior examination. Electronically Signed: Art Joseph MD at 9:23 EDT Tel , Service support , Chest X-Ray 10/06/17 06:21 IMPRESSION: Persistent bilateral infiltrates worse on the right side. There has been mild improvement as compared to prior study. Further follow-up is recommended. Electronically Signed: Reggie Castillo MD at 8:18 EDT Tel [phone], Service support , Abdomen/Pelvis CT 10/08/17 09:18 IMPRESSION: 1. Slender fluid collection associated with the left hip incision, probably representing seroma. Abscess cannot be entirely excluded. 2. Diffuse induration in the presacral fat of the pelvis, of uncertain significance. 3. Small focus of asymmetric thickening of the wall of the rectosigmoid, of uncertain significance. Consider follow-up colonoscopy. 4. Bilateral lower lobe pneumonia. Minimal left effusion. 5. Large sliding hiatal hernia containing the majority of the stomach. Electronically Signed: Gelacio Tammy, at 13:02 EDT Tel , Service support , Chest CT 10/08/17 09:18 IMPRESSION: Bilateral multilobar pneumonia. Chronic cardiac disease. Large sliding hiatal hernia. Small thyroid nodules. Electronically Signed: Gelacio Munoz, at 13:07 EDT Tel , Service support , Medical Necessity - Tobacco Use Smoking Status: Never smoker Assessment/Plan All Active Problems (Last Updated 06/23/17 @ 17:11 by Too Cote NP-C) Surgical site infection (Resolved) multilobar HCAP (Acute) Acute respiratory failure with hypoxia (Acute) CHF (congestive heart failure) (Acute) Neck swelling (Acute) Accelerated hypertension (Resolved) Chest pain (Resolved) DVT of lower extremity (deep venous thrombosis) (Resolved) Nephrolithiasis (Resolved) RECOMMENDATIONS: 1. Continue antibiotics per ID recommendations 2. Continue nocturnal BiPAP. Wean supplemental oxygen as tolerated. Goal to maintain oxygen saturations at or above 90%. 3. Continue Lasix. 4. Rate/rhythm control per cardiology recommendations. 5. Encourage incentive spirometer use and mobilize patient as tolerated. 6. Perform walking oximetry prior to consideration for discharge from the hospital. IMPRESSIONS: 1. Acute hypoxemic respiratory failure, secondary to healthcare associated pneumonia The patient presented with dyspnea and required the initiation of BiPAP support. She has responded favorably from a clinical perspective to the use of BiPAP and broad-spectrum antibiotics in treatment for multifocal pneumonia. Antibiotics will be continued per infectious diseases recommendations. Continue to wean supplemental oxygen to maintain saturations at or above 90%. Encourage incentive spirometer use and mobilize patient as tolerated. Continue Lasix as ordered. Perform walking oximetry study prior to consideration for discharge from the hospital. 2. Atrial fibrillation with RVR/Personal history of coronary artery disease status post CABG/aortic valve disease status post replacement/ICD in situ Continue rate/rhythm control therapy per cardiology recommendations. 3. 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 This appears to have resolved at this time. 4. Advanced age/neuropathy/hypertension/hyperlipidemia/GERD Complicates care, management, recovery and prognosis. The patient is a documented DNR CCA on file. Physical therapy to continue to work with patient. This note was generated with [employer] dictation software. It may contain incorrect words, spelling, and punctuation that were not noted in checking the note before signing. Code Visit Inpatient E&M: 13953 Subs Hosp L2
--- NOTE | 2017-10-11 09:14 | PCM.PN.CARD ---
Subjectve: Patient doing well this morning, sitting up at the edge of the bed, no further wheezing. Lungs with markedly improved crackles on the right side, no edema. Telemetry showed normal sinus rhythm with paced ventricular response. Blood cultures negative. Sputum culture grew out coag negative staph and patient was switched to Zosyn. Objective: Vital Signs Temp Pulse Resp BP Pulse Ox 98.3 F 71 20 H 118/64 96 10/11/17 03:35 10/11/17 07:40 10/11/17 07:40 10/11/17 03:35 10/11/17 07:40 Oxygen Flow Rate (L/min) 3 Oxygen Delivery Method Bi-pap Weight: 154 lb 12.232 oz Body Mass Index (BMI) 30.7 Intake and Output for Last 24 Hours 10/09/17 10/10/17 10/11/17 23:59 23:59 23:59 Intake Total 749 / 749 421.7 / 421.7 170.0 / 170.0 Output Total 600 / 600 950 / 950 550 / 550 Balance 149 / 149 -528.3 / -528.3 -380.0 / -380.0 General: Awake, Alert, Oriented x 3 HEENT: PERRL, EOMI, Sclera Non Icteric Neck: Supple, Good ROM, No Lymph Node Enlargement Lungs: Clear to auscultation Cardiovascular: Regular Rhythm, Normal S1, Normal S2, No Murmurs, No Rubs, No Gallops Vascular: No Carotid Bruits, Normal Femoral Pulses, Normal Radial Pulses, Normal Dorsalis Pedal Pulse, Normal Posterior Tibial Pulses Abdomen: Bowel Sounds Present, Soft, Non Tender, No HSM, No Organomegaly Extremities: No Cyanosis, No Clubbing, No edema Neurological: No Focal Motor or Sensory Deficit 10/11/17 05:22: PT 19.5 H, INR 1.6 Rhythm: EKG: ECHO: Stress Test: Cardiac Cath: PCI: CT Surgery: Holter monitor: EPS: PPM: CXR: Chest CT Scan: Medical Necessity - Tobacco Use Smoking Status: Never smoker Assessment/Plan 1. Atrial fibrillation: Patient's heart rate appears to be fairly well-controlled with beta-hal therapy. In fact, she appears to be in normal rhythm with paced ventricular response. She has been loaded with Coumadin therapy. Her INRs between 2.0 and 3.0. Continue Lovenox until INR is therapeutic for both atrial fibrillation and DVT prophylaxis. INR today 1.6. 2. Paroxysmal ventricular tachycardia She reportedly has a history of paroxysmal ventricular tachycardia. She will continue to be monitored. No V. tach noted on telemetry over 48 she has normal LV function. Hours. She will continue medical management with her beta-hal therapy. No ventricular tachycardia detected on telemetry last evening. We will hold on antiarrhythmic therapy at this time. She does have an ICD in place. 3. CHF She does not appear to have signs and symptoms compatible with underlying CHF at this time. This may be brought out by her underlying pulmonary disease process superimposed upon her cardiovascular disease process. Overall she appears to improve with her diuresis. Her IV diuretics have been changed to oral diuretics. If she begins to retain fluid she may need to be placed back on IV diuretics. 4. Cardiomyopathy Patient's EF shows normal LV function, and severe pulmonary hypertension. Patient has stable appearing aortic valvular apparatus. Continue diuretic therapy. No indication for catheterization or RACHEL at this time. 5. CAD status post RANDLE to the LAD At the time of her surgery she received a RANDLE to the LAD. She does have an indeterminate troponin. It is unclear as or whether this is a primary acute coronary syndrome event versus more likely being related to a type II event from supply demand mismatch secondary to her underlying acute pulmonary disease process superimposed upon her chronic cardiovascular disease process. At the moment would be reasonable to continue her medical management. She can be reassessed as deemed appropriate. No plans for catheterization or stress test at this time 6. Status post aortic valve replacement-bioprosthetic The patient is status post the aforementioned surgery. She has undergone further evaluation with a transthoracic echocardiogram. Her aortic valve apparatus was stable. (Please see official/complete report) blood cultures are negative. No indication for RACHEL at this time. 7. ICD The patient does have an underlying ICD in place. It is a biventricular device. 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 8. Hypertension The patient will continue have her blood pressures monitored. She will be reassessed as needed. 9. Hyperlipidemia The patient will continue lipid-lowering therapy as deemed appropriate. 10. Pneumonia She did have a CT scan of the chest. Per the radiology report appears there are still concerns of pneumonia. She will continue evaluation care per internal medicine and pulmonology. Overall, from a cardiovascular standpoint, she is continuing conservative medical management at this time for her multiple cardiovascular conditions. There are no immediate plans for additional cardiovascular diagnostic studies, especially invasive, at this time. 11. We will sign off. Please call with any questions. Thank you very much for the opportunity to put dissipate in the cardiac care of the patient.
--- NOTE | 2017-10-11 09:19 | PN.CARD_ITS ---
Subjectve: Patient doing well this morning, sitting up at the edge of the bed, no further wheezing. Lungs with markedly improved crackles on the right side, no edema. Telemetry showed normal sinus rhythm with paced ventricular response. Blood cultures negative. Sputum culture grew out coag negative staph and patient was switched to Zosyn. Objective: Vital Signs Temp Pulse Resp BP Pulse Ox 98.3 F 71 20 H 118/64 96 10/11/17 03:35 10/11/17 07:40 10/11/17 07:40 10/11/17 03:35 10/11/17 07:40 Oxygen Flow Rate (L/min) 3 Oxygen Delivery Method Bi-pap Weight: 154 lb 12.232 oz Body Mass Index (BMI) 30.7 Intake and Output for Last 24 Hours 10/09/17 10/10/17 10/11/17 23:59 23:59 23:59 Intake Total 749 / 749 421.7 / 421.7 170.0 / 170.0 Output Total 600 / 600 950 / 950 550 / 550 Balance 149 / 149 -528.3 / -528.3 -380.0 / -380.0 General: Awake, Alert, Oriented x 3 HEENT: PERRL, EOMI, Sclera Non Icteric Neck: Supple, Good ROM, No Lymph Node Enlargement Lungs: Clear to auscultation Cardiovascular: Regular Rhythm, Normal S1, Normal S2, No Murmurs, No Rubs, No Gallops Vascular: No Carotid Bruits, Normal Femoral Pulses, Normal Radial Pulses, Normal Dorsalis Pedal Pulse, Normal Posterior Tibial Pulses Abdomen: Bowel Sounds Present, Soft, Non Tender, No HSM, No Organomegaly Extremities: No Cyanosis, No Clubbing, No edema Neurological: No Focal Motor or Sensory Deficit 10/11/17 05:22: PT 19.5 H, INR 1.6 Rhythm: EKG: ECHO: Stress Test: Cardiac Cath: PCI: CT Surgery: Holter monitor: EPS: PPM: CXR: Chest CT Scan: Medical Necessity - Tobacco Use Smoking Status: Never smoker Assessment/Plan 1. Atrial fibrillation: Patient's heart rate appears to be fairly well- controlled with beta-hal therapy. In fact, she appears to be in normal rhythm with paced ventricular response. She has been loaded with Coumadin therapy. Her INRs between 2.0 and 3.0. Continue Lovenox until INR is therapeutic for both atrial fibrillation and DVT prophylaxis. INR today 1.6. 2. Paroxysmal ventricular tachycardia She reportedly has a history of paroxysmal ventricular tachycardia. She will continue to be monitored. No V. tach noted on telemetry over 48 she has normal LV function. Hours. She will continue medical management with her beta- hal therapy. No ventricular tachycardia detected on telemetry last evening. We will hold on antiarrhythmic therapy at this time. She does have an ICD in place. 3. CHF She does not appear to have signs and symptoms compatible with underlying CHF at this time. This may be brought out by her underlying pulmonary disease process superimposed upon her cardiovascular disease process. Overall she appears to improve with her diuresis. Her IV diuretics have been changed to oral diuretics. If she begins to retain fluid she may need to be placed back on IV diuretics. 4. Cardiomyopathy Patient's EF shows normal LV function, and severe pulmonary hypertension. Patient has stable appearing aortic valvular apparatus. Continue diuretic therapy. No indication for catheterization or RACHEL at this time. 5. CAD status post RANDLE to the LAD At the time of her surgery she received a RANDLE to the LAD. She does have an indeterminate troponin. It is unclear as or whether this is a primary acute coronary syndrome event versus more likely being related to a type II event from supply demand mismatch secondary to her underlying acute pulmonary disease process superimposed upon her chronic cardiovascular disease process. At the moment would be reasonable to continue her medical management. She can be reassessed as deemed appropriate. No plans for catheterization or stress test at this time 6. Status post aortic valve replacement-bioprosthetic The patient is status post the aforementioned surgery. She has undergone further evaluation with a transthoracic echocardiogram. Her aortic valve apparatus was stable. (Please see official/complete report) blood cultures are negative. No indication for RACHEL at this time. 7. ICD The patient does have an underlying ICD in place. It is a biventricular device. 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 8. Hypertension The patient will continue have her blood pressures monitored. She will be reassessed as needed. 9. Hyperlipidemia The patient will continue lipid-lowering therapy as deemed appropriate. 10. Pneumonia She did have a CT scan of the chest. Per the radiology report appears there are still concerns of pneumonia. She will continue evaluation care per internal medicine and pulmonology. Overall, from a cardiovascular standpoint, she is continuing conservative medical management at this time for her multiple cardiovascular conditions. There are no immediate plans for additional cardiovascular diagnostic studies, especially invasive, at this time. 11. We will sign off. Please call with any questions. Thank you very much for the opportunity to put dissipate in the cardiac care of the patient.
[2017-10-11] MEDS: Carvedilol 25 MG Tablet PO (09:49)
[2017-10-11] MEDS: Aspirin E.C. 81 MG Tablet PO (09:49)
[2017-10-11] MEDS: Menthol/Lanolin/Calamine/Znox 113 GM Tube 1 APPLIC TOPICAL (09:49)
[2017-10-11] MEDS: Famotidine 20 MG Tablet PO (09:50)
[2017-10-11] MEDS: Furosemide 40 MG Tablet PO (09:50)
[2017-10-11] MEDS: Lisinopril 40 MG Tablet PO (09:50)
[2017-10-11] MEDS: guaiFENesin 1,200 MG Tablet 1200 MG PO (09:50)
[2017-10-11] MEDS: amLODIPine 5 MG Tablet PO (09:50)
[2017-10-11] MEDS: Magnesium Oxide 400 MG Tablet PO (09:50)
--- NOTE | 2017-10-11 11:43 | PN_ITS ---
Progress Note Patient is doing well. She continues to have no pain. She did have some drainage on the dressing which was new overnight. She had previously had a dressing which was dry and no new drainage. Incision remains without any erythema. There is a small pinpoint area where I was able to express some serosanguineous fluid presumably from the seroma noted on CT scan. No purulence was noted. At this time I have contacted infectious disease I recommended we monitor the wound for drainage and continue the patient on antibiotics to oral once IVs are complete until 24 hours after patient no longer has drainage. [facility] I would like the patient to follow-up in the office at the end of this week to check the wound. [facility] Office:
--- NOTE | 2017-10-11 13:40 | PCM.PN.HOSP ---
Patient Problems: Active and Suspected Problems (Last Updated 06/23/17 @ 17:11 by Too Cote ASSIGNER-C) multilobar HCAP (Acute) Acute respiratory failure with hypoxia (Acute) CHF (congestive heart failure) (Acute) Subjective: Breathing better. Drainage from left hip started today. Vitals/I&O's: Vital Signs Temp Pulse Resp BP Pulse Ox 37.1 C 87 20 H 128/65 H 93 10/11/17 09:20 10/11/17 11:27 10/11/17 09:20 10/11/17 09:20 10/11/17 09:20 Oxygen Flow Rate (L/min) 3 Oxygen Delivery Method Nasal Cannula Weight: 70.2 kg Body Mass Index (BMI) 30.7 Intake and Output for Last 24 Hours 10/09/17 10/10/17 10/11/17 23:59 23:59 23:59 Intake Total 749 / 749 421.7 / 421.7 410.0 / 410.0 Output Total 600 / 600 950 / 950 550 / 550 Balance 149 / 149 -528.3 / -528.3 -140.0 / -140.0 General: Alert, No apparent distress HEENT: Atraumatic, Normocephalic Neck: No Nodes, Thyroid Normal Size and Texture Lungs: Normal air movement, - - bilateral crackles Cardiovascular: Regular rate, Regular Rhythm, Normal S1, Normal S2, No murmurs Abdomen: Bowel Sounds Present, Soft, Non Tender, Non-Distended, No Hepato-splenomegaly Extremities: No edema, No Calf Tenderness Microbiology Past 72 Hours 10/07/17 15:20 Urine Catheter - Yang Urine Culture - Final Culture exhibits no growth. 10/07/17 15:15 Blood Culture (Wb) - Left Hand Blood Culture - Preliminary No growth in 48 hours. 10/07/17 15:00 Blood Culture (Wb) - Right Hand Blood Culture - Preliminary No growth in 48 hours. Laboratory Results 10/11/17 05:22: PT 19.5 H, INR 1.6 Current Medications Acetaminophen (Tylenol) 650 mg PO Q4H PRN PRN PRN Reason: FEVER Last Admin: 10/09/17 15:11 Dose: 650 mg Acetaminophen (Tylenol) 650 mg RECTAL Q6H PRN PRN PRN Reason: temp>101 / Pain Last Admin: 10/04/17 19:46 Dose: 650 mg Albuterol Sulfate (Ventolin Aerosols) 2.5 mg INHALATION Q2H PRN PRN PRN Reason: SHORTNESS OF BREATH Last Admin: 10/10/17 18:52 Dose: 2.5 mg Amlodipine Besylate (Norvasc) 5 mg PO DAILY [facility] Last Admin: 10/11/17 09:50 Dose: 5 mg Aspirin (Ecotrin) 81 mg PO DAILY [facility] Last Admin: 10/11/17 09:49 Dose: 81 mg Atorvastatin Calcium (Lipitor) 20 mg PO QHS [facility] Last Admin: 10/10/17 21:36 Dose: 20 mg Calamine/Phenol (Calmoseptine Ointment) 1 applic TOPICAL BID [facility] PRN Reason: Protocol Last Admin: 10/11/17 09:49 Dose: 1 applicatio Carvedilol (Coreg) 25 mg PO BID [facility] Last Admin: 10/11/17 09:49 Dose: 25 mg Enoxaparin Sodium (Lovenox) 80 mg 1 mg/kg (80 mg) SC Q12@0600,1800 [facility] Last Admin: 10/11/17 05:53 Dose: 80 mg Famotidine (Pepcid) 20 mg PO BID [facility] Last Admin: 10/11/17 09:50 Dose: 20 mg Furosemide (Lasix) 40 mg PO BID@1000,1800 [facility] Last Admin: 10/11/17 09:50 Dose: 40 mg Guaifenesin (Mucinex) 1,200 mg PO BID [facility] Last Admin: 10/11/17 09:50 Dose: 1,200 mg Piperacillin Sod/Tazobactam Sod (Zosyn) 3.375 gm in 50 mls @ 12.5 mls/hr IV Q8 [facility] Last Admin: 10/11/17 13:02 Dose: 12.5 mls/hr Labetalol HCl (Trandate) 10 mg IV Q4H PRN PRN PRN Reason: HR > 120 Last Admin: 10/02/17 23:06 Dose: 10 mg Lisinopril (Zestril) 40 mg PO DAILY [facility] Last Admin: 10/11/17 09:50 Dose: 40 mg Magnesium Oxide (Mag-Ox 400) 400 mg PO DAILY [facility] Last Admin: 10/11/17 09:50 Dose: 400 mg Nitroglycerin (Nitrostat) 0.4 mg SUBLINGUAL Q5M PRN PRN Reason: Chest Pain Nutritional Formula (Lactose Free) (Ensure Clear) 120 ml PO 4X/DAY [facility] Last Admin: 10/11/17 12:58 Dose: Not Given Ondansetron HCl (Zofran) 4 mg IV Q8H PRN PRN PRN Reason: NAUSEA Last Admin: 10/08/17 10:52 Dose: 4 mg Senna/Docusate Sodium (Senokot-S, Dilia-Colace) 2 tablet PO BID PRN PRN PRN Reason: Constipation Sodium Chloride () 5 - 30 ml IV UD PRN PRN Reason: SALINE FLUSH Last Admin: 10/09/17 05:27 Dose: 10 ml Tramadol HCl (Ultram) 50 mg PO Q6H PRN PRN PRN Reason: PAIN Last Admin: 10/08/17 21:39 Dose: 50 mg Warfarin Sodium (Coumadin (Pbkc)) 5 mg PO DAILY@1700 [facility] Last Admin: 10/10/17 17:05 Dose: 5 mg Medical Necessity - Tobacco Use Smoking Status: Never smoker Assessment/Plan All Active Problems (Last Updated 06/23/17 @ 17:11 by Too Cote, ASSIGNER-C) Surgical site infection (Resolved) multilobar HCAP (Acute) Acute respiratory failure with hypoxia (Acute) CHF (congestive heart failure) (Acute) Neck swelling (Acute) Accelerated hypertension (Resolved) Chest pain (Resolved) DVT of lower extremity (deep venous thrombosis) (Resolved) Nephrolithiasis (Resolved) 1. Acute hypoxic respiratory failure Multifactorial, due to CHF, pneumonia plus minus acute lung injury Improved today and patient is tolerating being off of BiPAP, at least for now. Appreciate input by critical care medicine CXR improving tolerating nasal cannula at this time. 2. Suspected gram-negative pneumonia/healthcare acquired pneumonia Sputum culture growing out coag negative staph, which I feel is probably contaminant. Continue with pulmonary toilet Continue with Zosyn 3. Heart failure with preserved ejection fraction Ejection fraction of 70% from left heart catheterization from September 24, 2015 Lasix transitioned over to oral. Continue with lisinopril and carvedilol 4. Atrial fibrillation with RVR Currently rate controlled On carvedilol. Continue with carvedilol for now. Early on weight-based Lovenox for anticoagulation at this time. given bioprosthetic AV, start coumadin 5. Non-STEMI Troponins were as high as 0.216 Suspect demand ischemia and given the patient's respiratory failure, pneumonia and heart failure. Troponin on was down to 0.073. Medical management for now. On ASA, coreg, lisinopril, statin 6. DVT prophylaxis with anticoagulation. 7. Fevers resolved ID on consult CT chest showed pneumonia. CT abd/pelvis showed seroma v abscess adjacent to left him incision. Ortho feels it is a post-op hematoma. 8. Left hip fluid collection per Dr. Parr, likely seroma v hematoma--not abscess he recommended abx for 24h after it is done draining. So, patient will be on Zosyn through the . Will start Augmentin afterward, if needed. 9. Disposition: to TCU today. I d/w TCU today, and they assured me they can do IV abx through a peripheral line through the 5th.
--- NOTE | 2017-10-11 13:43 | PN_ITS ---
Patient Problems: Active and Suspected Problems (Last Updated 06/23/17 @ 17:11 by Too Cote WATER ATTENDANT- C) multilobar HCAP (Acute) Acute respiratory failure with hypoxia (Acute) CHF (congestive heart failure) (Acute) Subjective: Breathing better. Drainage from left hip started today. Vitals/I&O's: Vital Signs Temp Pulse Resp BP Pulse Ox 37.1 C 87 20 H 128/65 H 93 10/11/17 09:20 10/11/17 11:27 10/11/17 09:20 10/11/17 09:20 10/11/17 09:20 Oxygen Flow Rate (L/min) 3 Oxygen Delivery Method Nasal Cannula Weight: 70.2 kg Body Mass Index (BMI) 30.7 Intake and Output for Last 24 Hours 10/09/17 10/10/17 10/11/17 23:59 23:59 23:59 Intake Total 749 / 749 421.7 / 421.7 410.0 / 410.0 Output Total 600 / 600 950 / 950 550 / 550 Balance 149 / 149 -528.3 / -528.3 -140.0 / -140.0 General: Alert, No apparent distress HEENT: Atraumatic, Normocephalic Neck: No Nodes, Thyroid Normal Size and Texture Lungs: Normal air movement, - - bilateral crackles Cardiovascular: Regular rate, Regular Rhythm, Normal S1, Normal S2, No murmurs Abdomen: Bowel Sounds Present, Soft, Non Tender, Non-Distended, No Hepato- splenomegaly Extremities: No edema, No Calf Tenderness Microbiology Past 72 Hours 10/07/17 15:20 Urine Catheter - Yang Urine Culture - Final Culture exhibits no growth. 10/07/17 15:15 Blood Culture (Wb) - Left Hand Blood Culture - Preliminary No growth in 48 hours. 10/07/17 15:00 Blood Culture (Wb) - Right Hand Blood Culture - Preliminary No growth in 48 hours. Laboratory Results 10/11/17 05:22: PT 19.5 H, INR 1.6 Current Medications Acetaminophen (Tylenol) 650 mg PO Q4H PRN PRN PRN Reason: FEVER Last Admin: 10/09/17 15:11 Dose: 650 mg Acetaminophen (Tylenol) 650 mg RECTAL Q6H PRN PRN PRN Reason: temp>101 / Pain Last Admin: 10/04/17 19:46 Dose: 650 mg Albuterol Sulfate (Ventolin Aerosols) 2.5 mg INHALATION Q2H PRN PRN PRN Reason: SHORTNESS OF BREATH Last Admin: 10/10/17 18:52 Dose: 2.5 mg Amlodipine Besylate (Norvasc) 5 mg PO DAILY [facility] Last Admin: 10/11/17 09:50 Dose: 5 mg Aspirin (Ecotrin) 81 mg PO DAILY [facility] Last Admin: 10/11/17 09:49 Dose: 81 mg Atorvastatin Calcium (Lipitor) 20 mg PO QHS [facility] Last Admin: 10/10/17 21:36 Dose: 20 mg Calamine/Phenol (Calmoseptine Ointment) 1 applic TOPICAL BID [facility] PRN Reason: Protocol Last Admin: 10/11/17 09:49 Dose: 1 applicatio Carvedilol (Coreg) 25 mg PO BID [facility] Last Admin: 10/11/17 09:49 Dose: 25 mg Enoxaparin Sodium (Lovenox) 80 mg 1 mg/kg (80 mg) SC Q12@0600,1800 [facility] Last Admin: 10/11/17 05:53 Dose: 80 mg Famotidine (Pepcid) 20 mg PO BID [facility] Last Admin: 10/11/17 09:50 Dose: 20 mg Furosemide (Lasix) 40 mg PO BID@1000,1800 [facility] Last Admin: 10/11/17 09:50 Dose: 40 mg Guaifenesin (Mucinex) 1,200 mg PO BID [facility] Last Admin: 10/11/17 09:50 Dose: 1,200 mg Piperacillin Sod/Tazobactam Sod (Zosyn) 3.375 gm in 50 mls @ 12.5 mls/hr IV Q8 [facility] Last Admin: 10/11/17 13:02 Dose: 12.5 mls/hr Labetalol HCl (Trandate) 10 mg IV Q4H PRN PRN PRN Reason: HR > 120 Last Admin: 10/02/17 23:06 Dose: 10 mg Lisinopril (Zestril) 40 mg PO DAILY [facility] Last Admin: 10/11/17 09:50 Dose: 40 mg Magnesium Oxide (Mag-Ox 400) 400 mg PO DAILY [facility] Last Admin: 10/11/17 09:50 Dose: 400 mg Nitroglycerin (Nitrostat) 0.4 mg SUBLINGUAL Q5M PRN PRN Reason: Chest Pain Nutritional Formula (Lactose Free) (Ensure Clear) 120 ml PO 4X/DAY [facility] Last Admin: 10/11/17 12:58 Dose: Not Given Ondansetron HCl (Zofran) 4 mg IV Q8H PRN PRN PRN Reason: NAUSEA Last Admin: 10/08/17 10:52 Dose: 4 mg Senna/Docusate Sodium (Senokot-S, Dilia-Colace) 2 tablet PO BID PRN PRN PRN Reason: Constipation Sodium Chloride () 5 - 30 ml IV UD PRN PRN Reason: SALINE FLUSH Last Admin: 10/09/17 05:27 Dose: 10 ml Tramadol HCl (Ultram) 50 mg PO Q6H PRN PRN PRN Reason: PAIN Last Admin: 10/08/17 21:39 Dose: 50 mg Warfarin Sodium (Coumadin (Pbkc)) 5 mg PO DAILY@1700 [facility] Last Admin: 10/10/17 17:05 Dose: 5 mg Medical Necessity - Tobacco Use Smoking Status: Never smoker Assessment/Plan All Active Problems (Last Updated 06/23/17 @ 17:11 by Too Cote, WATER ATTENDANT-C) Surgical site infection (Resolved) multilobar HCAP (Acute) Acute respiratory failure with hypoxia (Acute) CHF (congestive heart failure) (Acute) Neck swelling (Acute) Accelerated hypertension (Resolved) Chest pain (Resolved) DVT of lower extremity (deep venous thrombosis) (Resolved) Nephrolithiasis (Resolved) 1. Acute hypoxic respiratory failure * Multifactorial, due to CHF, pneumonia plus minus acute lung injury * Improved today and patient is tolerating being off of BiPAP, at least for now. * Appreciate input by critical care medicine * CXR improving * tolerating nasal cannula at this time. 2. Suspected gram-negative pneumonia/healthcare acquired pneumonia * Sputum culture growing out coag negative staph, which I feel is probably contaminant. * Continue with pulmonary toilet * Continue with Zosyn 3. Heart failure with preserved ejection fraction * Ejection fraction of 70% from left heart catheterization from September 24, 2015 * Lasix transitioned over to oral. * Continue with lisinopril and carvedilol 4. Atrial fibrillation with RVR * Currently rate controlled * On carvedilol. * Continue with carvedilol for now. * Early on weight-based Lovenox for anticoagulation at this time. * given bioprosthetic AV, start coumadin 5. Non-STEMI * Troponins were as high as 0.216 * Suspect demand ischemia and given the patient's respiratory failure, pneumonia and heart failure. * Troponin on was down to 0.073. * Medical management for now. * On ASA, coreg, lisinopril, statin 6. DVT prophylaxis with anticoagulation. 7. Fevers * resolved * ID on consult * CT chest showed pneumonia. * CT abd/pelvis showed seroma v abscess adjacent to left him incision. Ortho feels it is a post-op hematoma. 8. Left hip fluid collection * per Dr. Parr, likely seroma v hematoma--not abscess * he recommended abx for 24h after it is done draining. * So, patient will be on Zosyn through the . Will start Augmentin afterward, if needed. 9. Disposition: * to TCU today. * I d/w TCU today, and they assured me they can do IV abx through a peripheral line through the .
--- NOTE | 2017-10-11 13:50 | PCM.TXEXTCAR ---
- Diet 10/02/17 16:10 ADA [Diet: Cardiac: Calorie-Controlled] Dietary Modifications:: Mechanical Soft Diet Is pt able to select menu?: Yes How many daily calories?: 1800 calorie - Routine Orders/Code Status O2 Liters per Minute: 3 O2 Frequency: Continuous Routine Lab Work: CBC - Q Thursday, BMP - Q Thursday, INR - Q Thursday and - Wound(s) Left Buttock Wound Type: excoriation Left hip Wound Type: Surgical Incision Right Inner circumference of upper calf Wound Type: Abrasion Right outer circumference of upper calf Wound Type: Abrasion - Therapies Weight Bearing: Full weight bearing Extremity Affected:: Left Lower Physical Therapy: Eval and Treat Occupational Therapy: Eval and Treat - Allergies/Procedures Done in Hospital Allergies/Adverse Reactions: Allergies adhesive Allergy (Verified 09/30/17 21:57) Unknown etodolac Allergy (Verified 09/30/17 21:57) Unknown magnesium Allergy (Verified 09/30/17 21:57) Unknown melatonin Allergy (Verified 09/30/17 21:57) Unknown nitroglycerin Allergy (Verified 09/30/17 21:57) Unknown oxycodone HCl [From Percocet] Allergy (Verified 09/30/17 21:57) Unknown phenobarbital Allergy (Verified 09/30/17 21:57) Unknown tolmetin sodium [From Tolectin] Allergy (Verified 09/30/17 21:57) Unknown venlafaxine Allergy (Verified 09/30/17 21:57) Unknown coenzyme Q10 Allergy (Uncoded 09/30/17 21:57) Unknown nitropatch Allergy (Uncoded 09/30/17 21:57) unknown Procedures: 2-D Echocardiogram - Type of Care/Length of Stay Estimated LOS: Convalescent Care Less Than 30 days Type of Care Needed: Skilled Rehab Potential: Fair Prognosis: Fair - Additional Orders/Day of Discharge Day of Discharge: 10/11/17 - Dietary and Speech Recommendations Dietitian Recommendations/Changes: Suggest liberalize diet to regular - consistency per BATCH FREEZER OPERATOR - d/t decreased oral intake. Encourage consumption of Ensure Enlive w/ medpass. - Follow Up Care Primary Care Physician: Bijan Austin MD [Primary Care Provider] - Within 2 Weeks Please Follow Up With: Salvador Bella MD When: 2 weeks Please Follow Up With: Sukh Parr MD When: Week of 10/12/17
--- NOTE | 2017-10-11 13:58 | PCM.DC.SUM ---
Discharge Date and Diagnosis - Problem List Patient Problems: Active and Suspected Problems (Last Updated 06/23/17 @ 17:11 by BETTIE Batista) multilobar HCAP (Acute) Acute respiratory failure with hypoxia (Acute) CHF (congestive heart failure) (Acute) Date of Admission: 09/30/17 Date of Discharge: 10/11/17 - Primary Discharge Diagnosis Active and Suspected Problems (Last Updated 06/23/17 @ 17:11 by BETTIE Batista) multilobar HCAP (Acute) Acute respiratory failure with hypoxia (Acute) CHF (congestive heart failure) (Acute) - Secondary Discharge Diagnosis Chronic Problems (Last Updated 06/23/17 @ 17:11 by BETTIE Batista) Cardiomyopathy (Chronic) Ischemic cardiomyopathy (Chronic) Paroxysmal atrial fibrillation (Chronic) 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) Hyperthyroidism (Chronic) Hypokalemia (Chronic) Atherosclerotic heart disease of [place] coronary artery without angina pectoris (Chronic) CABG x1 RANDLE-LAD x/Aortic Valve Replacement Left bundle-branch block (Chronic) Nonrheumatic aortic valve stenosis (Chronic) HTN (hypertension) (Chronic) Other chest pain (Chronic) Presence of aortocoronary bypass graft (Chronic) Dyspnea on exertion (Chronic) Fatigue (Chronic) Chronic pulmonary heart disease (Chronic) CVA (cerebral infarction) (Chronic) Hyperlipidemia (Chronic) Paroxysmal ventricular tachycardia (Chronic) HTN (hypertension) (Chronic) Hypothyroidism associated with surgical procedure (Chronic) had a subtotal thyroidectomy for goiter Hemorrhoids (Chronic) Restless leg syndrome (Chronic) TIA (transient ischemic attack) (Chronic) multiple History of aortic valve replacement with bioprosthetic valve (Chronic) Hospital Course and Treatment Imaging Results: Clinical Impression(s) from Imaging Studies Chest X-Ray 09/30/17 22:05 IMPRESSION: Multiple bilateral perihilar nodules or nodular-type infiltrates more severe on the right. This probably represents pulmonary edema however cannot exclude inflammatory disease or neoplasm. Clinical correlation recommended Electronically Signed: Zac Chandler MD at 22:48 EDT , Service support , Chest X-Ray 10/01/17 07:10 IMPRESSION: Progressive bilateral airspace disease worse in the right hemithorax. Electronically Signed: Reggie Castillo MD at 9:37 EDT Tel [phone], Service support , Chest X-Ray 10/02/17 03:10 IMPRESSION: No significant change since previous examination. Extensive bilateral infiltrates markedly worse on the right side. Lucency in the left upper chest as described above. Follow-up examination is recommended. Electronically Signed: Art Joseph MD at 3:48 EDT Tel , Service support , Chest X-Ray 10/03/17 08:14 IMPRESSION: Bilateral infiltrates essentially unchanged since prior examination. Electronically Signed: Art Joseph MD at 9:23 EDT Tel , Service support , Chest X-Ray 10/06/17 06:21 IMPRESSION: Persistent bilateral infiltrates worse on the right side. There has been mild improvement as compared to prior study. Further follow-up is recommended. Electronically Signed: Reggie Castillo MD at 8:18 EDT Tel [phone], Service support , Abdomen/Pelvis CT 10/08/17 09:18 IMPRESSION: 1. Slender fluid collection associated with the left hip incision, probably representing seroma. Abscess cannot be entirely excluded. 2. Diffuse induration in the presacral fat of the pelvis, of uncertain significance. 3. Small focus of asymmetric thickening of the wall of the rectosigmoid, of uncertain significance. Consider follow-up colonoscopy. 4. Bilateral lower lobe pneumonia. Minimal left effusion. 5. Large sliding hiatal hernia containing the majority of the stomach. Electronically Signed: Gelacio Munoz, at 13:02 EDT Tel , Service support , Chest CT 10/08/17 09:18 IMPRESSION: Bilateral multilobar pneumonia. Chronic cardiac disease. Large sliding hiatal hernia. Small thyroid nodules. Electronically Signed: Gelacio Munoz, at 13:07 EDT Tel , Service support , Pulmonology: Deyvi/Rodolfo ID: [id number] Cardiology: Joe/Pat Orthopaedics: Keshav Operations: None Procedures: 2-D Echocardiogram Summary of Care Provided: The patient is a 82 year old F who recently underwent a left hip surgery with surgical site infection presents with shortness of breath. Patient was put in the ICU because she did require BiPAP at one point but steadily improved. See below for further details. 1. Acute hypoxic respiratory failure Multifactorial, due to CHF, pneumonia plus minus acute lung injury Improved today and patient is tolerating being off of BiPAP, at least for now. Appreciate input by critical care medicine CXR improving tolerating nasal cannula at this time. 2. Suspected gram-negative pneumonia/healthcare acquired pneumonia Sputum culture growing out coag negative staph, which I feel is probably contaminant. Continue with pulmonary toilet Continue with Zosyn 3. Heart failure with preserved ejection fraction Ejection fraction of 70% from left heart catheterization from September 24, 2015 Lasix transitioned over to oral. Continue with lisinopril and carvedilol 4. Atrial fibrillation with RVR Currently rate controlled On carvedilol. Continue with carvedilol for now. Early on weight-based Lovenox for anticoagulation at this time. given bioprosthetic AV, start coumadin. Stop lovenox once INR greater than or equal to 2. 5. Non-STEMI Troponins were as high as 0.216 Suspect demand ischemia and given the patient's respiratory failure, pneumonia and heart failure. Troponin on was down to 0.073. Medical management for now. On ASA, coreg, lisinopril, statin 6. DVT prophylaxis with anticoagulation. 7. Fevers resolved ID on consult CT chest showed pneumonia. CT abd/pelvis showed seroma v abscess adjacent to left him incision. Ortho feels it is a post-op hematoma. 8. Left hip fluid collection per Dr. Parr, likely seroma v hematoma--not abscess he recommended abx for 24h after it is done draining. So, patient will be on Zosyn through the . Will start Augmentin afterward, if needed. 9. Disposition: to TCU today. I d/w TCU today, and they assured me they can do IV abx through a peripheral line through the .[] Discharge Diet: Low fat/ Low Cholesterol, 8 Cup Fluid Restriciton, 2000 mg Sodium Diet Discharge Activity: Return to Normal Activity Call your doctor if you observe: Fever of 101 or Higher Home Medications: Medications to take at Discharge Magnesium Oxide [Mag-Ox 400] 400 mg PO DAILY 09/17/15 Nitroglycerin [Nitrostat] 0.4 mg SUBLINGUAL Q5M PRN 09/20/15 coenzyme Q10 200 mg capsule 200 mg PO DAILY 05/05/17 gabapentin 100 mg capsule 200 mg PO BID 05/05/17 melatonin 3 mg tablet 3 mg PO HS PRN 05/07/17 amlodipine 5 mg tablet 5 mg PO DAILY 06/23/17 atorvastatin 40 mg tablet 20 mg PO QHS tab 06/23/17 Carvedilol [Coreg (Beta Gene)] 25 mg PO BID 07/06/17 Cholecalciferol (Vitamin D3) [Vitamin D3] 1,000 unit PO DAILY 07/06/17 Lisinopril [Zestril] 40 mg PO DAILY tablet 09/19/17 Senna/Docusate Sodium [Senokot-S] 2 tab PO BID #20 tab 09/19/17 Albuterol Aerosols [Ventolin Aerosols] 2.5 mg INHALATION Q4H PRN PRN 09/30/17 Famotidine [Pepcid] 20 mg PO BID 09/30/17 Omeprazole [Prilosec] 20 mg PO DAILY 09/30/17 Potassium Chloride [K-Dur] 20 meq PO DAILY 09/30/17 0.9% Saline Lock 5 - 30 ml IV UD PRN syringe 10/11/17 Acetaminophen [Tylenol Suppository] 650 mg RECTAL Q6H PRN PRN suppos. 10/11/17 Acetaminophen [Tylenol Tablet] 650 mg PO Q4H PRN PRN tablet 10/11/17 Amoxicillin/Potassium Clav [Augmentin 875-125 Tablet] 1 each PO BID #1 tablet 10/11/17 Aspirin E.C. [Ecotrin] 81 mg PO DAILY tablet 10/11/17 Enoxaparin [Lovenox] 80 mg SC Q12@0600,1800 syringe 10/11/17 Ensure Clear 120 ml PO 4X/DAY liquid 10/11/17 Furosemide [Lasix] 40 mg PO BID@1000,1800 tablet 10/11/17 Guaifenesin [Mucinex] 1,200 mg PO BID tablet 10/11/17 Piperacil/Tazobactam [Zosyn] 3.375 gm IV Q8 ml 10/11/17 Warfarin [Coumadin] 5 mg PO DAILY@1700 tablet 10/11/17 Following Prescrptions Were Given to Patient: Amoxicillin/Potassium Clav [Augmentin 875-125 Tablet] 1 each PO BID #1 tablet Primary Care Physician: Bijan Austin MD [Primary Care Provider] - Within 2 Weeks Please Follow Up With: Salvador Bella MD When: 2 weeks Please Follow Up With: Sukh Parr MD When: Week of 10/12/17 Disposition: [facility] facility Minutes spent on discharge:: 35 Patient Condition:: Fair Medical Necessity - Tobacco Use Smoking Status: Never smoker Meaningful Use Info Meaningful Use Diagnoses (Choose all that apply): CHF - AMI Aspirin given w/in 24hrs of arrival?: Yes ASA at discharge?: Yes Statins at discharge?: Yes Yusef/ARB at discharge?: Yes Beta Gene at discharge?: Yes Done w/ Acute MA measure.: Yes - CHF YUSEF/ARB ordered at discharge?: Yes Documented LVEF (%): 70 Code Visit Inpatient E&M: 75572 Disch Hosp
--- NOTE | 2017-10-11 14:02 | DS.PCM_ITS ---
Discharge Date and Diagnosis - Problem List Patient Problems: Active and Suspected Problems (Last Updated 06/23/17 @ 17:11 by DAJUAN Batista) multilobar HCAP (Acute) Acute respiratory failure with hypoxia (Acute) CHF (congestive heart failure) (Acute) Date of Admission: 09/30/17 Date of Discharge: 10/11/17 - Primary Discharge Diagnosis Active and Suspected Problems (Last Updated 06/23/17 @ 17:11 by DAJUAN Batista) multilobar HCAP (Acute) Acute respiratory failure with hypoxia (Acute) CHF (congestive heart failure) (Acute) - Secondary Discharge Diagnosis Chronic Problems (Last Updated 06/23/17 @ 17:11 by BETTIE Batista) Cardiomyopathy (Chronic) Ischemic cardiomyopathy (Chronic) Paroxysmal atrial fibrillation (Chronic) 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) Hyperthyroidism (Chronic) Hypokalemia (Chronic) 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) CABG x1 RANDLE-LAD x/Aortic Valve Replacement Left bundle-branch block (Chronic) Nonrheumatic aortic valve stenosis (Chronic) HTN (hypertension) (Chronic) Other chest pain (Chronic) Presence of aortocoronary bypass graft (Chronic) Dyspnea on exertion (Chronic) Fatigue (Chronic) Chronic pulmonary heart disease (Chronic) CVA (cerebral infarction) (Chronic) Hyperlipidemia (Chronic) Paroxysmal ventricular tachycardia (Chronic) HTN (hypertension) (Chronic) Hypothyroidism associated with surgical procedure (Chronic) had a subtotal thyroidectomy for goiter Hemorrhoids (Chronic) Restless leg syndrome (Chronic) TIA (transient ischemic attack) (Chronic) multiple History of aortic valve replacement with bioprosthetic valve (Chronic) Hospital Course and Treatment Imaging Results: Clinical Impression(s) from Imaging Studies Chest X-Ray 09/30/17 22:05 IMPRESSION: Multiple bilateral perihilar nodules or nodular-type infiltrates more severe on the right. This probably represents pulmonary edema however cannot exclude inflammatory disease or neoplasm. Clinical correlation recommended Electronically Signed: Zac Chandler MD at 22:48 EDT , Service support , Chest X-Ray 10/01/17 07:10 IMPRESSION: Progressive bilateral airspace disease worse in the right hemithorax. Electronically Signed: Reggie Casitllo MD at 9:37 EDT Tel [phone], Service support , Chest X-Ray 10/02/17 03:10 IMPRESSION: No significant change since previous examination. Extensive bilateral infiltrates markedly worse on the right side. Lucency in the left upper chest as described above. Follow-up examination is recommended. Electronically Signed: Art Joseph MD at 3:48 EDT Tel , Service support , Chest X-Ray 10/03/17 08:14 IMPRESSION: Bilateral infiltrates essentially unchanged since prior examination. Electronically Signed: Art Joseph MD at 9:23 EDT Tel , Service support , Chest X-Ray 10/06/17 06:21 IMPRESSION: Persistent bilateral infiltrates worse on the right side. There has been mild improvement as compared to prior study. Further follow-up is recommended. Electronically Signed: Reggie Castillo MD at 8:18 EDT Tel [phone], Service support , Abdomen/Pelvis CT 10/08/17 09:18 IMPRESSION: 1. Slender fluid collection associated with the left hip incision, probably representing seroma. Abscess cannot be entirely excluded. 2. Diffuse induration in the presacral fat of the pelvis, of uncertain significance. 3. Small focus of asymmetric thickening of the wall of the rectosigmoid, of uncertain significance. Consider follow-up colonoscopy. 4. Bilateral lower lobe pneumonia. Minimal left effusion. 5. Large sliding hiatal hernia containing the majority of the stomach. Electronically Signed: Gelacio Munoz, at 13:02 EDT Tel , Service support , Chest CT 10/08/17 09:18 IMPRESSION: Bilateral multilobar pneumonia. Chronic cardiac disease. Large sliding hiatal hernia. Small thyroid nodules. Electronically Signed: Gelacio Munoz, at 13:07 EDT Tel , Service support , Pulmonology: Deyvi/Rodolfo ID: [id number] Cardiology: Joe/Pat Orthopaedics: Keshav Operations: None Procedures: 2-D Echocardiogram Summary of Care Provided: The patient is a 82 year old F who recently underwent a left hip surgery with surgical site infection presents with shortness of breath. Patient was put in the ICU because she did require BiPAP at one point but steadily improved. See below for further details. 1. Acute hypoxic respiratory failure * Multifactorial, due to CHF, pneumonia plus minus acute lung injury * Improved today and patient is tolerating being off of BiPAP, at least for now. * Appreciate input by critical care medicine * CXR improving * tolerating nasal cannula at this time. 2. Suspected gram-negative pneumonia/healthcare acquired pneumonia * Sputum culture growing out coag negative staph, which I feel is probably contaminant. * Continue with pulmonary toilet * Continue with Zosyn 3. Heart failure with preserved ejection fraction * Ejection fraction of 70% from left heart catheterization from September 24, 2015 * Lasix transitioned over to oral. * Continue with lisinopril and carvedilol 4. Atrial fibrillation with RVR * Currently rate controlled * On carvedilol. * Continue with carvedilol for now. * Early on weight-based Lovenox for anticoagulation at this time. * given bioprosthetic AV, start coumadin. * Stop lovenox once INR greater than or equal to 2. 5. Non-STEMI * Troponins were as high as 0.216 * Suspect demand ischemia and given the patient's respiratory failure, pneumonia and heart failure. * Troponin on was down to 0.073. * Medical management for now. * On ASA, coreg, lisinopril, statin 6. DVT prophylaxis with anticoagulation. 7. Fevers * resolved * ID on consult * CT chest showed pneumonia. * CT abd/pelvis showed seroma v abscess adjacent to left him incision. Ortho feels it is a post-op hematoma. 8. Left hip fluid collection * per Dr. Parr, likely seroma v hematoma--not abscess * he recommended abx for 24h after it is done draining. * So, patient will be on Zosyn through the 5th. Will start Augmentin afterward, if needed. 9. Disposition: * to TCU today. * I d/w TCU today, and they assured me they can do IV abx through a peripheral line through the .[] Discharge Diet: Low fat/ Low Cholesterol, 8 Cup Fluid Restriciton, 2000 mg Sodium Diet Discharge Activity: Return to Normal Activity Call your doctor if you observe: Fever of 101 or Higher Home Medications: Medications to take at Discharge Magnesium Oxide [Mag-Ox 400] 400 mg PO DAILY 09/17/15 Nitroglycerin [Nitrostat] 0.4 mg SUBLINGUAL Q5M PRN 09/20/15 coenzyme Q10 200 mg capsule 200 mg PO DAILY 05/05/17 gabapentin 100 mg capsule 200 mg PO BID 05/05/17 melatonin 3 mg tablet 3 mg PO HS PRN 05/07/17 amlodipine 5 mg tablet 5 mg PO DAILY 06/23/17 atorvastatin 40 mg tablet 20 mg PO QHS tab 06/23/17 Carvedilol [Coreg (Beta Gene)] 25 mg PO BID 07/06/17 Cholecalciferol (Vitamin D3) [Vitamin D3] 1,000 unit PO DAILY 07/06/17 Lisinopril [Zestril] 40 mg PO DAILY tablet 09/19/17 Senna/Docusate Sodium [Senokot-S] 2 tab PO BID #20 tab 09/19/17 Albuterol Aerosols [Ventolin Aerosols] 2.5 mg INHALATION Q4H PRN PRN 09/30/17 Famotidine [Pepcid] 20 mg PO BID 09/30/17 Omeprazole [Prilosec] 20 mg PO DAILY 09/30/17 Potassium Chloride [K-Dur] 20 meq PO DAILY 09/30/17 0.9% Saline Lock 5 - 30 ml IV UD PRN syringe 10/11/17 Acetaminophen [Tylenol Suppository] 650 mg RECTAL Q6H PRN PRN suppos. 10/11/17 Acetaminophen [Tylenol Tablet] 650 mg PO Q4H PRN PRN tablet 10/11/17 Amoxicillin/Potassium Clav [Augmentin 875-125 Tablet] 1 each PO BID #1 tablet Aspirin E.C. [Ecotrin] 81 mg PO DAILY tablet 10/11/17 Enoxaparin [Lovenox] 80 mg SC Q12@0600,1800 syringe 10/11/17 Ensure Clear 120 ml PO 4X/DAY liquid 10/11/17 Furosemide [Lasix] 40 mg PO BID@1000,1800 tablet 10/11/17 Guaifenesin [Mucinex] 1,200 mg PO BID tablet 10/11/17 Piperacil/Tazobactam [Zosyn] 3.375 gm IV Q8 ml 10/11/17 Warfarin [Coumadin] 5 mg PO DAILY@1700 tablet 10/11/17 Following Prescrptions Were Given to Patient: Amoxicillin/Potassium Clav [Augmentin 875-125 Tablet] 1 each PO BID #1 tablet Primary Care Physician: Bijan Austin MD [Primary Care Provider] - Within 2 Weeks Please Follow Up With: Salvador Bella MD When: 2 weeks Please Follow Up With: Sukh Parr MD When: Week of 10/12/17 Disposition: [facility] facility Minutes spent on discharge:: 35 Patient Condition:: Fair Medical Necessity - Tobacco Use Smoking Status: Never smoker Meaningful Use Info Meaningful Use Diagnoses (Choose all that apply): CHF - AMI Aspirin given w/in 24hrs of arrival?: Yes ASA at discharge?: Yes Statins at discharge?: Yes Yusef/ARB at discharge?: Yes Beta Gene at discharge?: Yes Done w/ Acute IL measure.: Yes - CHF YUSEF/ARB ordered at discharge?: Yes Documented LVEF (%): 70 Code Visit Inpatient E&M: 91795 Disch Hosp
--- NOTE | 2017-10-11 14:30 | NURSING ---
called report to Bev in TCU, pt to go to TCU Bed 4
== END 2017-10-11 14:57 | disposition skilled nursing facility (03) | DRG 871 ==
LOC: ED 10-01 00:10 → ICU 10-01 00:43 → PCU 10-02 12:12 → ICU 10-03 14:28 → PCU 10-10 14:38
PROVIDERS: Internal Medicine; Internal Medicine Cardiovascular Disease; Internal Medicine Critical Care Medicine; Student in an Organized Health Care Education/Training Program; Admitting Provider Internal Medicine; Emergency Provider Emergency Medicine; Family Provider Family Medicine; PCP Family Medicine
DX: A41.9 Sepsis, unspecified organism (principal); J15.6 Pneumonia due to other Gram-negative bacteria; J96.01 Acute respiratory failure with hypoxia; I21.A1 Myocardial infarction type 2; I50.22 Chronic systolic (congestive) heart failure; M96.840 Postprocedural hematoma of a musculoskeletal structure following a musculoskeletal system procedure; Z95.1 Presence of aortocoronary bypass graft; Z96.642 Presence of left artificial hip joint; I25.5 Ischemic cardiomyopathy; E87.6 Hypokalemia; I11.0 Hypertensive heart disease with heart failure; D63.8 Anemia in other chronic diseases classified elsewhere; I48.0 Paroxysmal atrial fibrillation; E89.0 Postprocedural hypothyroidism; I25.10 Atherosclerotic heart disease of native coronary artery without angina pectoris; E78.5 Hyperlipidemia, unspecified; Z79.899 Other long term (current) drug therapy; Z95.3 Presence of xenogenic heart valve; G25.81 Restless legs syndrome; Y95 Nosocomial condition; Z95.810 Presence of automatic (implantable) cardiac defibrillator
CPT/HCPCS: 36415; 36600; 71045; 71260; 74177; 80048; 81001; 81002; 82803; 83605; 83735; 83880; 84484; 85025; 85027; 85610; 87040; 87070; 87086; 87205; 87449; 87493; 87633; 87641; 92507; 92526; 93005; 93306; 93970; 94002; 94003; 94640; 94667; 94668; 97110; 97163; 97165; 97530; 97802; 99285; J7030; J7040; J7050; Q9957; Q9967; A4216; J1940; J2405

== ENCOUNTER 2017-10-11 15:12 | Inpatient (IN) | payer MEDICARE, OTHER, SELFPAY ==
--- NOTE | 2017-10-11 15:12 | DT_ITS ---
This patient was seen during an EMR downtime October 12, 2017 - October 19, 2017. This patient may have a combination of paper and electronic documentation or all paper documentation. All documentation is viewable within the e-chart portion of [facility] for each patient visit.
[2017-10-11 15:18] VITALS: BP 113/55; PULSE 76; RESP 18; TEMP 36.6; O2SAT 96; BMI 27.3; BMI 27.4
--- NOTE | 2017-10-11 15:19 | NURSING ---
pt arrived via bed from acute hospital
[2017-10-11] MEDS: Carvedilol 25 MG Tablet PO (17:51)
[2017-10-11] MEDS: Amox/Clavulanate 875 MG Tablet PO (17:51)
[2017-10-11] MEDS: guaiFENesin 1,200 MG Tablet 1200 MG PO (17:51)
[2017-10-11] MEDS: Furosemide 40 MG Tablet PO (17:51)
[2017-10-11] MEDS: Enoxaparin 80 MG/0.8 ML Syringe SC (17:51)
[2017-10-11] MEDS: Famotidine 20 MG Tablet PO (17:51)
[2017-10-11] MEDS: MELATONIN 3 MG TABLET PO (21:21)
[2017-10-11] MEDS: Gabapentin 100 MG Capsule 200 MG PO (21:21)
[2017-10-11] MEDS: Atorvastatin Calcium 20 MG Tablet PO (21:21)
[2017-10-11] MEDS: Piperacil/Tazobactam 3.375 GM/50 ML ML IV (21:50)
[2017-10-15 17:22] LABS: Hematocrit 28.5 % (37-47); Hemoglobin 8.6 g/dl (12.0-15.0); Mean Corp Hgb Conc 30.2 g/gl (32-36); Mean Corpuscular Hgb 29.4 pg (27.0-32.0); Mean Corpuscular Volume 97.3 fL (81-99); Mean Platelet Vol. 10.4 fl (6.2-12.0); POSITIVE COUNT NO; POSITIVE DIFFERENTIAL NO; POSITIVE MORPHOLOGY NO; Platelet Count 367 K/mm3 (150-450); RBC Distribution Width CV 14.2 % (11.6-14.6); RBC Distribution Width SD 47.7 fl (35.1-43.9); Red Blood Count 2.93 M/mm3 (4.2-5.4); White Blood Count 8.5 K/mm3 (4.4-11.0)
[2017-10-15 17:23] LABS: Absolute Lymphocyte Count 1.33 X10^3/ul (0.83-4.51); Absolute Neutrophil Count 5.3 X10^3/uL (2.0-7.7); Basophil% 0.6 % (0-1); Lymphocyte # 1.33 X10^3/ul (4.0); Lymphocyte % 15.6 % (19-41); Monocyte% 12.9 % (0-10); Neutrophil # 5.26 X10^3/uL (2.7-7.7); Neutrophil % 61.5 % (47-70); Platelet Estimate ADEQUATE (ADEQ)
[2017-10-15 17:49] LABS: International Normalized Ratio 1.8; Prothrombin Time (Protime)PT. 21.2 SECONDS (11.7-14.9)
[2017-10-15 18:01] LABS: International Normalized Ratio 2.1; Prothrombin Time (Protime)PT. 23.7 SECONDS (11.7-14.9)
[2017-10-17 07:27] LABS: BUN 12 mg/dL (7-18); BUN/Creat Ratio 21.4 RATIO (10-20); Creatinine, Serum 0.56 mg/dL (0.55-1.02); EST Glomerular Filtration Rate 111 mL/min (>60); Est Glom Filt Rate - Afr Amer 135 mL/min (>60); Estimated Creatinine Clearance 37.12 ml/min; Glucose 85 mg/dL (74-106)
[2017-10-17 07:28] LABS: Anion Gap 9 (5-15); Calcium,Total 8.5 mg/dL (8.5-10.1); Chloride 103 mmol/L (98-107); Potassium 3.9 mmol/L (3.5-5.1); Sodium Level 140 mmol/L (136-145)
--- NOTE | 2017-10-20 14:55 | MDS.RN ---
Information for the mds was obtained from review of the clinical record-both paper and computer due computer system down during lookback period, interview of resident, staff, and direct observation of resident's care.
[2017-10-21 14:57] LABS: Anion Gap 10 (5-15); BUN 12 mg/dL (7-18); BUN/Creat Ratio 23.5 RATIO (10-20); Calcium,Total 8.6 mg/dL (8.5-10.1); Chloride 102 mmol/L (98-107); Creatinine, Serum 0.51 mg/dL (0.55-1.02); EST Glomerular Filtration Rate 123 mL/min (>60); Est Glom Filt Rate - Afr Amer 149 mL/min (>60); Estimated Creatinine Clearance 37.12 ml/min; Glucose 79 mg/dL (74-106); Potassium 3.2 mmol/L (3.5-5.1); Sodium Level 142 mmol/L (136-145)
--- NOTE | 2017-11-03 08:10 | PCM.DC ---
You will use the following diet at home:: No restrictions, Regular Your food should be the consistency of: Regular Your liquids should be the consistency of: Regular/Thin Weight Bearing Status: Weight bearing as tolerated Call your doctor if you observe: Fever of 101 or Higher, Inability to urinate, Inability to have a bowel movement, Shortness of breath, Chest pain, Uncontrolled pain Allergies/Adverse Reactions: Allergies adhesive Allergy (Verified 09/30/17 21:57) Unknown etodolac Allergy (Verified 09/30/17 21:57) Unknown magnesium Allergy (Verified 09/30/17 21:57) Unknown melatonin Allergy (Verified 09/30/17 21:57) Unknown nitroglycerin Allergy (Verified 09/30/17 21:57) Unknown oxycodone HCl [From Percocet] Allergy (Verified 09/30/17 21:57) Unknown phenobarbital Allergy (Verified 09/30/17 21:57) Unknown tolmetin sodium [From Tolectin] Allergy (Verified 09/30/17 21:57) Unknown venlafaxine Allergy (Verified 09/30/17 21:57) Unknown coenzyme Q10 Allergy (Uncoded 09/30/17 21:57) Unknown nitropatch Allergy (Uncoded 09/30/17 21:57) unknown Medications to take at Discharge Magnesium Oxide [Mag-Ox 400] 400 mg PO DAILY 09/17/15 Nitroglycerin [Nitrostat] 0.4 mg SUBLINGUAL Q5M PRN 09/20/15 coenzyme Q10 200 mg capsule 200 mg PO DAILY 05/05/17 gabapentin 100 mg capsule 200 mg PO BID 05/05/17 melatonin 3 mg tablet 3 mg PO HS PRN 05/07/17 amlodipine 5 mg tablet 5 mg PO DAILY 06/23/17 atorvastatin 40 mg tablet 20 mg PO QHS tab 06/23/17 Carvedilol [Coreg (Beta Gene)] 25 mg PO BID 07/06/17 Cholecalciferol (Vitamin D3) [Vitamin D3] 1,000 unit PO DAILY 07/06/17 Albuterol Aerosols [Ventolin Aerosols] 2.5 mg INHALATION Q4H PRN PRN 09/30/17 Famotidine [Pepcid] 20 mg PO BID 09/30/17 Omeprazole [Prilosec] 20 mg PO DAILY 09/30/17 Potassium Chloride [K-Dur] 20 meq PO DAILY 09/30/17 0.9% Saline Lock 5 - 30 ml IV UD PRN syringe 10/11/17 Acetaminophen [Tylenol Suppository] 650 mg RECTAL Q6H PRN PRN suppos. 10/11/17 Acetaminophen [Tylenol Tablet] 650 mg PO Q4H PRN PRN tablet 10/11/17 Amoxicillin/Potassium Clav [Augmentin 875-125 Tablet] 1 each PO BID 10/11/17 Aspirin E.C. [Ecotrin] 81 mg PO DAILY 10/11/17 Enoxaparin [Lovenox] 80 mg SC Q12@0600,1800 10/11/17 Ensure Clear 120 ml PO 4X/DAY 10/11/17 Furosemide [Lasix] 40 mg PO BID@1000,1800 10/11/17 Guaifenesin [Mucinex] 1,200 mg PO BID 10/11/17 Lisinopril [Zestril] 40 mg PO DAILY 10/11/17 Piperacil/Tazobactam [Zosyn] 3.375 gm IV Q8 10/11/17 Senna/Docusate Sodium [Senokot-S] 2 tablet PO BID 10/11/17 Warfarin [Coumadin] 5 mg PO DAILY@1700 10/11/17 Primary Care Physician: Bijan Austin MD [Primary Care Provider] - Please follow up with your Primary Care Physician in: 1 week. Proposed Discharge Date: 10/15/17
--- NOTE | 2017-11-03 08:14 | DS.PCM_ITS ---
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) Hyperthyroidism (Chronic) Hypokalemia (Chronic) Atherosclerotic heart disease of [place] coronary artery without angina pectoris (Chronic) CABG x1 RANDLE-LAD x/Aortic Valve Replacement Left bundle-branch block (Chronic) Nonrheumatic aortic valve stenosis (Chronic) HTN (hypertension) (Chronic) Other chest pain (Chronic) Presence of aortocoronary bypass graft (Chronic) Dyspnea on exertion (Chronic) Fatigue (Chronic) Chronic pulmonary heart disease (Chronic) CVA (cerebral infarction) (Chronic) Hyperlipidemia (Chronic) Paroxysmal ventricular tachycardia (Chronic) HTN (hypertension) (Chronic) Hypothyroidism associated with surgical procedure (Chronic) had a subtotal thyroidectomy for goiter Hemorrhoids (Chronic) Restless leg syndrome (Chronic) TIA (transient ischemic attack) (Chronic) multiple History of aortic valve replacement with bioprosthetic valve (Chronic) Hospital Course and Treatment Operations: None Procedures: None Summary of Care Provided: The patient is a 82 year old Female with below past medical history hospitalized for healthcare associated pneumonia, recent left total hip replacement per Dr. Parr, admitted to TCU with debility, here for rehabilitation, strengthening, prior to discharge home. Resident discharged to Acute Hospital for change in medical status. Discharge Diet: No Restrictions Discharge Activity: Return to Normal Activity, May Shower, Use Walker Weight Bearing Status: Weight bearing as tolerated Call your doctor if you observe: Fever of 101 or Higher, Inability to urinate, Inability to have a bowel movement, Shortness of breath, Chest pain, Uncontrolled pain Home Medications: Medications to take at Discharge Magnesium Oxide [Mag-Ox 400] 400 mg PO DAILY 09/17/15 Nitroglycerin [Nitrostat] 0.4 mg SUBLINGUAL Q5M PRN 09/20/15 coenzyme Q10 200 mg capsule 200 mg PO DAILY 05/05/17 gabapentin 100 mg capsule 200 mg PO BID 05/05/17 melatonin 3 mg tablet 3 mg PO HS PRN 05/07/17 amlodipine 5 mg tablet 5 mg PO DAILY 06/23/17 atorvastatin 40 mg tablet 20 mg PO QHS tab 06/23/17 Carvedilol [Coreg (Beta Gene)] 25 mg PO BID 07/06/17 Cholecalciferol (Vitamin D3) [Vitamin D3] 1,000 unit PO DAILY 07/06/17 Albuterol Aerosols [Ventolin Aerosols] 2.5 mg INHALATION Q4H PRN PRN 09/30/17 Famotidine [Pepcid] 20 mg PO BID 09/30/17 Omeprazole [Prilosec] 20 mg PO DAILY 09/30/17 Potassium Chloride [K-Dur] 20 meq PO DAILY 09/30/17 0.9% Saline Lock 5 - 30 ml IV UD PRN syringe 10/11/17 Acetaminophen [Tylenol Suppository] 650 mg RECTAL Q6H PRN PRN suppos. 10/11/17 Acetaminophen [Tylenol Tablet] 650 mg PO Q4H PRN PRN tablet 10/11/17 Amoxicillin/Potassium Clav [Augmentin 875-125 Tablet] 1 each PO BID 10/11/17 Aspirin E.C. [Ecotrin] 81 mg PO DAILY 10/11/17 Enoxaparin [Lovenox] 80 mg SC Q12@0600,1800 10/11/17 Ensure Clear 120 ml PO 4X/DAY 10/11/17 Furosemide [Lasix] 40 mg PO BID@1000,1800 10/11/17 Guaifenesin [Mucinex] 1,200 mg PO BID 10/11/17 Lisinopril [Zestril] 40 mg PO DAILY 10/11/17 Piperacil/Tazobactam [Zosyn] 3.375 gm IV Q8 10/11/17 Senna/Docusate Sodium [Senokot-S] 2 tablet PO BID 10/11/17 Warfarin [Coumadin] 5 mg PO DAILY@1700 10/11/17 Primary Care Physician: Bijan Austin MD [Primary Care Provider] - Please follow up with your Primary Care Physician in: 1 week. Disposition: Acute care Hospital Patient Condition:: Guarded Medical Necessity - Tobacco Use Smoking Status: Never smoker Meaningful Use Info Meaningful Use Diagnoses (Choose all that apply): None applicable
== END 2017-10-15 11:35 | disposition short-term general hospital (02) | DRG 947 ==
LOC: TCU 15:17
PROVIDERS: Admitting Provider Family Medicine Geriatric Medicine; Family Provider Family Medicine; PCP Family Medicine; Visit Provider Family Medicine Geriatric Medicine
DX: R53.81 Other malaise (principal); J18.9 Pneumonia, unspecified organism; T84.52XD Infection and inflammatory reaction due to internal left hip prosthesis, subsequent encounter; Y95 Nosocomial condition; I48.0 Paroxysmal atrial fibrillation; I11.0 Hypertensive heart disease with heart failure; I25.10 Atherosclerotic heart disease of native coronary artery without angina pectoris; I50.9 Heart failure, unspecified; E78.5 Hyperlipidemia, unspecified; E87.6 Hypokalemia; K21.9 Gastro-esophageal reflux disease without esophagitis; E03.9 Hypothyroidism, unspecified; Z66 Do not resuscitate; I25.5 Ischemic cardiomyopathy; Z95.810 Presence of automatic (implantable) cardiac defibrillator; Z95.1 Presence of aortocoronary bypass graft; E89.0 Postprocedural hypothyroidism; G25.81 Restless legs syndrome; Z86.73 Personal history of transient ischemic attack (TIA), and cerebral infarction without residual deficits; Z95.2 Presence of prosthetic heart valve
CPT/HCPCS: 80048; 85025; 85610; 94640; 97110; 97112; 97116; 97162; 97166; 97530; 97535; 97802; J7050; A4216; J1940

== ENCOUNTER 2017-10-15 11:37 | Inpatient (IN) | payer MEDICARE, OTHER, SELFPAY ==
--- NOTE | 2017-10-15 11:29 | EKG12_ITS ---
Test Reason : 2ND EKG AFTER Blood Pressure : / mmHG Vent. Rate : 097 BPM Atrial Rate : 097 BPM P-R Int : 000 ms QRS Dur : 116 ms QT Int : 358 ms P-R-T Axes : 000 -16 115 degrees QTc Int : 454 ms Ventricular-paced rhythm Biventricular pacemaker detected Abnormal ECG Confirmed by ISABEL MCQUEEN, GAEL ([id number]), online content editor TERRI MENA ([id number]) on 10/21/2017 5:24:47 PM Referred By: SOTO Confirmed By:GAEL HALL MD
--- NOTE | 2017-10-15 11:29 | EKG12_ITS ---
Test Reason : SOB Blood Pressure : / mmHG Vent. Rate : 125 BPM Atrial Rate : 131 BPM P-R Int : 000 ms QRS Dur : 122 ms QT Int : 290 ms P-R-T Axes : 000 -47 122 degrees QTc Int : 418 ms Ventricular-paced rhythm Abnormal ECG Confirmed by ISABEL MCQUEEN, GAEL ([id number]), editor index TERRI MENA ([id number]) on 10/21/2017 5:24:24 PM Referred By: SOTO/RICHARD Confirmed By:GAEL HALL MD
--- NOTE | 2017-10-15 12:30 | RAD_ITS ---
STUDY: X-RAY CHEST REASON FOR EXAM: Female, 82 years old. Shortness of breath. TECHNIQUE: Single frontal view of the chest. COMPARISON: October 06, 2017 FINDINGS: There is low volume inspiration with a diffuse interstitial pattern, relatively unchanged, right greater than left. There are small pleural effusions unchanged. There is cardiomegaly with sternotomy wires, changes of valve replacement and a dual-lead cardiac pacer, all unaltered from the prior study. Normal mediastinum and kathy. Normal visualized pulmonary arteries. There is marked aortic tortuosity with calcification unchanged. Normal visualized thoracic spine. Normal visualized ribs, clavicles, and shoulders. There is no demonstrated abnormality of the visualized soft tissue structures of the upper abdomen. RAD/Chest 1 View (Portable) IMPRESSION: Stable appearance of the chest with no new or acute pathology. Electronically Signed: Stalin Chandler MD at 11:37 EDT , Service support ,
--- NOTE | 2017-10-15 15:48 | DT_ITS ---
This patient was seen during an EMR downtime October 12, 2017 - October 19, 2017. This patient may have a combination of paper and electronic documentation or all paper documentation. All documentation is viewable within the e-chart portion of [facility] for each patient visit.
--- NOTE | 2017-10-16 09:40 | RAD_ITS ---
STUDY: X-RAY CHEST REASON FOR EXAM: Female, 82 years old. Shortness of breath. TECHNIQUE: Single frontal view of the chest. COMPARISON: October 15, 2017 FINDINGS: There is low volume inspiration with a diffuse interstitial pattern right greater than left, relatively unchanged. There are small pleural effusions unchanged. There is cardiomegaly with sternotomy wires, changes of valve replacement and a dual-lead cardiac pacer, all unaltered from the prior study. Normal mediastinum and kathy. Normal visualized pulmonary arteries. There is marked aortic tortuosity with calcification unchanged. Normal visualized thoracic spine. Normal visualized ribs, clavicles, and shoulders. There is no demonstrated abnormality of the visualized soft tissue structures of the upper abdomen. RAD/Chest 1 View (Portable) IMPRESSION: Stable appearance of the chest with no new or acute pathology. Electronically Signed: Stalin Chandler MD at 13:46 EDT , Service support ,
[2017-10-17 12:36] LABS: Magnesium 2.1 mg/dL (1.6-2.6)
[2017-10-17 13:32] LABS: Bacteria 0 SEEN /hpf (None Seen); Color, Urine Yellow (Yellow); Glucose, Dipstick NEGATIVE (Normal); Ketone-Dipstick Negative (Negative); Mucous, Urine 0 SEEN /hpf (<or=2+); Red Blood Cells-Urine 0 SEEN /hpf (0-5); Urine Bilirubin Dipstick Negative (Negative); Urine Clarity Clear (Clear); White Blood Cells 0 SEEN /hpf (0-5)
[2017-10-17 13:33] LABS: Leukocyte Esterase-Dipstick Negative /ul (Negative); Nitrite-Dipstick Negative (Negative); Occult Blood-Urine Negative /ul (Negative); Protein-Dipstick 30 mg/dl (Negative); Squamous Epithelial Cells - UA 0-5 SEEN /hpf (5-10); Urine Urobilinogen Normal (Normal)
[2017-10-17 14:05] LABS: International Normalized Ratio 2.7; Prothrombin Time (Protime)PT. 28.7 SECONDS (11.7-14.9)
[2017-10-17 14:15] LABS: Anion Gap 10 (5-15); BUN 12 mg/dL (7-18); BUN/Creat Ratio 15.8 RATIO (10-20); Calcium,Total 8.8 mg/dL (8.5-10.1); Chloride 99 mmol/L (98-107); Creatinine, Serum 0.76 mg/dL (0.55-1.02); EST Glomerular Filtration Rate 78 mL/min (>60); Est Glom Filt Rate - Afr Amer 95 mL/min (>60); Glucose 149 mg/dL (74-106); Sodium Level 136 mmol/L (136-145)
[2017-10-18 13:17] LABS: Absolute Lymphocyte Count 0.62 X10^3/ul (0.83-4.51); Absolute Neutrophil Count 14.2 X10^3/uL (2.0-7.7); Basophil# 0.05 X10^3/uL; Basophil% 0.3 % (0-1); Eosinophil# 0.31 X10^3/uL; Eosinophils% 1.9 % (0-5); Hematocrit 32.5 % (37-47); Hemoglobin 10.2 g/dl (12.0-15.0); Lymphocyte # 0.62 X10^3/ul (4.0); Lymphocyte % 3.8 % (19-41); Mean Corp Hgb Conc 31.4 g/gl (32-36); Mean Corpuscular Hgb 29.3 pg (27.0-32.0); Mean Corpuscular Volume 93.4 fL (81-99); Mean Platelet Vol. 10.1 fl (6.2-12.0); Monocyte# 1.29 X10^3/uL; Monocyte% 7.8 % (0-10); Neutrophil # 14.15 X10^3/uL (2.7-7.7); Neutrophil % 85.9 % (47-70); POSITIVE COUNT NO; POSITIVE DIFFERENTIAL NO; POSITIVE MORPHOLOGY NO; Platelet Count 411 K/mm3 (150-450); RBC Distribution Width CV 14.4 % (11.6-14.6); RBC Distribution Width SD 50.3 fl (35.1-43.9); Red Blood Count 3.48 M/mm3 (4.2-5.4); White Blood Count 16.5 K/mm3 (4.4-11.0)
[2017-10-18 13:18] LABS: International Normalized Ratio 2.4; Prothrombin Time (Protime)PT. 26.4 SECONDS (11.7-14.9)
[2017-10-19 17:11] LABS: International Normalized Ratio 3.4; Prothrombin Time (Protime)PT. 34.4 SECONDS (11.7-14.9)
[2017-10-19 17:35] LABS: Allen Test POS; Base Excess 3 mmol/L (-2 to +2); Bicarbonate 26.8 mmol/L (22-26); Blood Gas Specimen Type ART; EPAP 8; FI02 60; IPAP 12; PO2 59 mmHG (75-100); RR 40; SITE R Radial; SO2 92 % (95-99); Time Given 1216; Total Carbon Dioxide 28 mmol/L; pCO2 36.6 mmHg (35-45); pH 7.47 (7.35-7.45)
[2017-10-19 21:06] LABS: Magnesium 2.2 mg/dL (1.6-2.6)
[2017-10-19 22:37] LABS: ALB/GLOB Ratio 0.5 RATIO (0.9-2.4); AST(SGOT) 28 U/L (15-37); Alanine Aminotransfer ALT/SGPT 26 U/L (13-56); Albumin, Serum 2.2 g/dL (3.2-5.0); Alkaline Phosphatase 79 U/L (45-117); Anion Gap 9 (5-15); BUN 11 mg/dL (7-18); Calcium,Total 8.4 mg/dL (8.5-10.1); Chloride 103 mmol/L (98-107); Cholesterol 99 mg/dL (200); Creatinine, Serum 0.61 mg/dL (0.55-1.02); EST Glomerular Filtration Rate 100 mL/min (>60); Est Glom Filt Rate - Afr Amer 121 mL/min (>60); Globulin 4.1 g/dL (2.2-4.2); Glucose 98 mg/dL (74-106); High Density Lipoprotein 39 mg/dL; Potassium 3.5 mmol/L (3.5-5.1); Protein, Total 6.3 g/dL (6.4-8.2); Sodium Level 141 mmol/L (136-145); Thyroid Stim Hormone (TSH) < 0.01 uIU/mL (0.358-3.74); Triglycerides 70 mg/dL; Very Low Density Lipoprotein 14 mg/dL (5-40)
== END 2017-10-16 20:30 | disposition skilled nursing facility (03) | DRG 291 ==
LOC: ED 15:28 → PCU 10-16 08:14
PROVIDERS: Emergency Medicine; Internal Medicine; Admitting Provider Internal Medicine; Emergency Provider Emergency Medicine; Family Provider Family Medicine; PCP Family Medicine; Visit Provider Internal Medicine
DX: I50.33 Acute on chronic diastolic (congestive) heart failure (principal); J96.21 Acute and chronic respiratory failure with hypoxia; I48.91 Unspecified atrial fibrillation; I25.10 Atherosclerotic heart disease of native coronary artery without angina pectoris; I27.20 Pulmonary hypertension, unspecified; I10 Essential (primary) hypertension; Z66 Do not resuscitate; Z95.1 Presence of aortocoronary bypass graft; Z95.0 Presence of cardiac pacemaker
CPT/HCPCS: 36415; 36600; 51702; 71045; 80048; 80053; 80061; 81001; 82803; 83735; 83880; 84443; 84484; 85025; 85610; 93005; 94002; 94003; 94640; 96374; 96375; 96376; 97163; 97166; 99284; J1756; J7030; J7040; A4216; G8978; G8979; G8987; G8988; J1940

== ENCOUNTER 2017-10-16 20:35 | Inpatient (IN) | payer MEDICARE, OTHER, SELFPAY ==
--- NOTE | 2017-10-16 20:35 | DT_ITS ---
This patient was seen during an EMR downtime October 12, 2017 - October 19, 2017. This patient may have a combination of paper and electronic documentation or all paper documentation. All documentation is viewable within the e-chart portion of [facility] for each patient visit.
[2017-10-16 20:45] VITALS: BMI 37.5
[2017-10-16 21:00] VITALS: BMI 37.5
[2017-10-17 10:48] LABS: International Normalized Ratio 2.3; Prothrombin Time (Protime)PT. 25.2 SECONDS (11.7-14.9)
--- NOTE | 2017-10-17 12:11 | RAD_ITS ---
STUDY: X-RAY CHEST REASON FOR EXAM: Female, 82 years old. Shortness of breath. TECHNIQUE: Single AP portable view of the chest. COMPARISON: 10/06/2017. FINDINGS: There again is a dual-chamber left pacemaker in stable position. Patchy bilateral infiltrates are again seen with mild improvement in the right lower lung zone. There again is small right pleural effusion. Sternal cerclage wires are present from a prior sternotomy. There is a prostatic valve in place. Normal mediastinum and kathy. Normal visualized pulmonary arteries. There is atherosclerotic calcification of the aortic arch with tortuosity. The bony structures are unchanged. There is no demonstrated abnormality of the visualized soft tissue structures of the upper abdomen. RAD/Chest 1 View IMPRESSION: Patchy bilateral infiltrates slightly improved in the right lower lung. Otherwise no significant change. Electronically Signed: Art Joseph MD at 12:55 EDT Tel , Service support ,
[2017-10-17 13:45] LABS: Anion Gap 9 (5-15); BUN 10 mg/dL (7-18); BUN/Creat Ratio 16.4 RATIO (10-20); Calcium,Total 8.7 mg/dL (8.5-10.1); Chloride 103 mmol/L (98-107); Creatinine, Serum 0.61 mg/dL (0.55-1.02); EST Glomerular Filtration Rate 100 mL/min (>60); Est Glom Filt Rate - Afr Amer 121 mL/min (>60); Glucose 88 mg/dL (74-106); Potassium 3.9 mmol/L (3.5-5.1); Sodium Level 140 mmol/L (136-145)
[2017-10-19] MEDS: Furosemide 40 MG/4 ML Vial IV ×2 (05:35→18:55)
[2017-10-19] MEDS: Piperacil/Tazobactam 3.375 GM Q8 PREMIX IV ×3 (05:45→21:17)
[2017-10-19] MEDS: Iron Polysaccharide Complex 150 MG CAPSULE PO (06:00)
[2017-10-19] MEDS: Magnesium Oxide 400 MG Tablet PO (06:00)
[2017-10-19] MEDS: Famotidine 20 MG Tablet PO ×2 (06:00→18:47)
[2017-10-19] MEDS: amLODIPine 5 MG Tablet PO (06:00)
[2017-10-19] MEDS: Carvedilol 25 MG Tablet PO ×2 (06:00→18:47)
[2017-10-19] MEDS: Aspirin 81 MG TAB.CHEW PO (06:00)
[2017-10-19 06:31] LABS: Prothrombin Time (Protime)PT. 54.4 SECONDS (11.7-14.9)
[2017-10-19 11:10] VITALS: PULSE 92; RESP 16
[2017-10-19] MEDS: Gabapentin 100 MG Capsule PO ×2 (14:28→14:32)
[2017-10-19 15:05] VITALS: PULSE 90; RESP 16; O2SAT 91
[2017-10-19] MEDS: Ipratropium/Albuterol Sulfate 3 ML AMPUL.NEB INHALATION ×2 (15:05→19:25)
--- NOTE | 2017-10-19 15:18 | CHAPLAIN ---
Type of Pastoral Visit ___ Initial Visit _x__ Follow-up Visit ___ On-call Visit ___ General Patient Visit ___ Spiritual Assessment ___ Family Conference ___ Bereavement ___ Rapid Response ___ Code Blue ___ Other (describe below) Pastoral Care Referral From _x__ Patient ___ Family ___ Nurse ___ Physician ___ Synchronous Motor Assembler ___ Firer Electric Locomotive ___ Other (describe below) Sacrament/Intervention ___ Active listening ___ Anointing ___ Cheondoism ___ Bereavement ___ Communion ___ Yaneth exploration ___ ___ Life review _x__ Prayer ___ Reconciliation ___ Sacrament of Sick _x__ Supportive presence ___ Wedding ___ Other (describe below) Pastoral Comments patient was seen in hospital admission recently; follow up; pt sees some improvement; pt has good yaneth support; pt asks for a prayer
--- NOTE | 2017-10-19 16:21 | NURSING ---
This nurse called to room, Therapy has pt up on bedside comode, Pt oxygen 78 % on 5 liters. This nurse assisted therapy get Pt back to bed. Bi pap applied at this time. Pt oxygen holding at 88-90% on Bi pap, Marietta RN aware
[2017-10-19 19:25] VITALS: PULSE 85; RESP 26
[2017-10-19] MEDS: Atorvastatin Calcium 20 MG Tablet PO (20:42)
[2017-10-19] MEDS: Gabapentin 100 MG Capsule 200 MG PO (20:43)
[2017-10-19 21:14] LABS: BNP,B-Type NATRIURETIC PEPTIDE 194.1 pg/mL (0-100)
[2017-10-19 22:35] VITALS: PULSE 98; RESP 12; RESP 34; O2SAT 95
[2017-10-20] VITALS (7 sets, daily range): BP systolic 122; BP diastolic 73; PULSE 74–99; RESP 12–38; TEMP 37.1; O2SAT 90–97
[2017-10-20] MEDS: Piperacil/Tazobactam 3.375 GM Q8 PREMIX IV (05:10)
[2017-10-20 06:21] LABS: Prothrombin Time (Protime)PT. 53.9 SECONDS (11.7-14.9)
[2017-10-20] MEDS: amLODIPine 5 MG Tablet PO (06:35)
[2017-10-20] MEDS: Carvedilol 25 MG Tablet PO ×2 (06:35→17:31)
[2017-10-20] MEDS: Famotidine 20 MG Tablet PO ×2 (06:35→17:31)
[2017-10-20] MEDS: Iron Polysaccharide Complex 150 MG CAPSULE PO (06:35)
[2017-10-20] MEDS: Aspirin 81 MG TAB.CHEW PO (06:36)
[2017-10-20] MEDS: Magnesium Oxide 400 MG Tablet PO (06:36)
[2017-10-20] MEDS: Furosemide 40 MG Tablet PO ×2 (06:36→17:31)
--- NOTE | 2017-10-20 06:43 | NURSING ---
Dr Bach aware of pt INR. N.O. Vit K and recheck INR in AM. Will continue to monitor and asses.
[2017-10-20] MEDS: Ipratropium/Albuterol Sulfate 3 ML AMPUL.NEB INHALATION ×2 (07:45→14:42)
[2017-10-20] MEDS: Phytonadione (Vit K) 10 MG/ML Ampul SC (08:17)
[2017-10-20 09:50] LABS: Anion Gap 16 (5-15); BUN 14 mg/dL (7-18); BUN/Creat Ratio 20.9 RATIO (10-20); Calcium,Total 8.4 mg/dL (8.5-10.1); Chloride 96 mmol/L (98-107); Creatinine, Serum 0.67 mg/dL (0.55-1.02); EST Glomerular Filtration Rate 90 mL/min (>60); Est Glom Filt Rate - Afr Amer 109 mL/min (>60); Glucose 118 mg/dL (74-106); Potassium 3.3 mmol/L (3.5-5.1); Sodium Level 141 mmol/L (136-145)
[2017-10-20] MEDS: 0.9% Saline Lock 10 ML Syringe IV (10:03)
[2017-10-20] MEDS: Gabapentin 100 MG Capsule PO (11:42)
--- NOTE | 2017-10-20 13:32 | PN.ID_ITS ---
Subjective: Feeling ok, still SOB with walking. No fever. Wound vac in place, no n/v/d. - Physical Exam General: Alert, Cooperative Lungs: Diminished Cardiovascular: Regular rate, Regular Rhythm Abdomen: Soft, Non Tender, Non-Distended Skin: No rashes, Incision - wound vac over L hip Vital Signs Pulse Resp Pulse Ox 82 18 96 10/20/17 07:30 10/20/17 07:30 10/20/17 07:30 Oxygen Flow Rate (L/min) 6 Oxygen Delivery Method Nasal Cannula Weight: 66.55 kg Body Mass Index (BMI) 37.5 Finger Stick Blood Glucose 156 Intake and Output for Last 24 Hours 10/18/17 10/19/17 10/20/17 23:59 23:59 23:59 Intake Total 300 / 300 480 / 480 Balance 300 / 300 480 / 480 Laboratory Tests Past 24 Hrs 10/16/17 10/17/17 10/20/17 05:10 06:40 05:20 PT 53.9 H INR 6.0 H* Sodium 141 Potassium 3.3 L Chloride 96 L Carbon Dioxide 29.0 Anion Gap 16 H BUN 14 Creatinine 0.67 Est GFR (MDRD) Af Amer 109 Est GFR (MDRD) Non-Af 90 BUN/Creatinine Ratio 20.9 H Glucose 118 H Calcium 8.4 L B-Natriuretic Peptide 194.1 H Medical Necessity - Tobacco Use Smoking Status: Smoker, status unknown Route of nutrition/ use of supplements: [] Nutritional Intake: [] IV Site: [] Yang Catheter: [] - Assessment/Plan Antibiotics: [] Assessment/Plan: [] Superficial surgical site infection s/p L total hip replacement 07/21/17 - now s/ p debridement 09/[address] Parr with cxs (+) for bacteroides. CT showed small fluid collection near surgical site. Now with wound vac in place, site looks good. On zosyn. Will change to augmentin for at least 1-2 more weeks. Will follow.
--- NOTE | 2017-10-20 14:15 | NURSING ---
Dr. Mcpherson in to see patient NO to d/c IV zosyn and start augmentin 875mg PO BID. Patient made aware.
[2017-10-20 15:08] LABS: Prothrombin Time (Protime)PT. 40.6 SECONDS (11.7-14.9)
[2017-10-20 15:09] LABS: International Normalized Ratio 4.2
--- NOTE | 2017-10-20 16:06 | NURSING ---
BOTH IV'S PULLED BY THIS NURSE FROM RIGHT LOWER ARM PER CATHERINE DURON. BOTH CATHETERS IN TACT. PT TOLERATED WELL.
[2017-10-20] MEDS: Amox/Clavulanate 875 MG Tablet PO (17:31)
[2017-10-20 17:34] LABS: Absolute Lymphocyte Count 1.31 X10^3/ul (0.83-4.51); Absolute Neutrophil Count 7.6 X10^3/uL (2.0-7.7); Basophil% 0.5 % (0-1); Eosinophils% 7.4 % (0-5); Hematocrit 28.1 % (37-47); Hemoglobin 8.6 g/dl (12.0-15.0); Lymphocyte # 1.31 X10^3/ul (4.0); Lymphocyte % 12.1 % (19-41); Mean Corp Hgb Conc 30.6 g/gl (32-36); Mean Corpuscular Hgb 29.1 pg (27.0-32.0); Mean Corpuscular Volume 94.9 fL (81-99); Mean Platelet Vol. 9.9 fl (6.2-12.0); Monocyte# 1.03 X10^3/uL; Monocyte% 9.5 % (0-10); Neutrophil # 7.63 X10^3/uL (2.7-7.7); Neutrophil % 70.3 % (47-70); POSITIVE COUNT NO; POSITIVE DIFFERENTIAL NO; POSITIVE MORPHOLOGY NO; Platelet Count 300 K/mm3 (150-450); RBC Distribution Width CV 14.4 % (11.6-14.6); RBC Distribution Width SD 47.4 fl (35.1-43.9); Red Blood Count 2.96 M/mm3 (4.2-5.4); White Blood Count 10.8 K/mm3 (4.4-11.0)
[2017-10-20 17:35] LABS: Basophil# 0.05 X10^3/uL
[2017-10-20 20:08] LABS: Prothrombin Time (Protime)PT. 46.9 SECONDS (11.7-14.9)
[2017-10-20] MEDS: Gabapentin 100 MG Capsule 200 MG PO (20:19)
[2017-10-20] MEDS: Atorvastatin Calcium 20 MG Tablet PO (20:19)
[2017-10-21] VITALS (10 sets, daily range): BP systolic 147; BP diastolic 72; PULSE 71–98; RESP 12–39; TEMP 36.7; O2SAT 93–96
[2017-10-21] MEDS: Carvedilol 25 MG Tablet PO ×2 (05:44→17:10)
[2017-10-21] MEDS: Amox/Clavulanate 875 MG Tablet PO ×2 (05:44→17:10)
[2017-10-21] MEDS: Aspirin 81 MG TAB.CHEW PO (05:44)
[2017-10-21] MEDS: Iron Polysaccharide Complex 150 MG CAPSULE PO (05:45)
[2017-10-21] MEDS: Magnesium Oxide 400 MG Tablet PO (05:45)
[2017-10-21] MEDS: Furosemide 40 MG Tablet PO ×2 (05:45→17:10)
[2017-10-21] MEDS: amLODIPine 5 MG Tablet PO (05:46)
[2017-10-21] MEDS: Famotidine 20 MG Tablet PO ×2 (05:46→17:10)
[2017-10-21 06:24] LABS: International Normalized Ratio 1.4; Prothrombin Time (Protime)PT. 16.7 SECONDS (11.7-14.9)
[2017-10-21] MEDS: Ipratropium/Albuterol Sulfate 3 ML AMPUL.NEB INHALATION ×4 (07:05→19:50)
--- NOTE | 2017-10-21 09:11 | CASEMGMT ---
Plan of care meeting held. Resident present as well as resident family. No discharge date has been set at this time. Resident to continue with further care and treatment on the Transitional Care Unit. Resident plans to discharge home alone at time of discharge date. Support given. Will continue to follow. Nay BARBA, BLADDER TRIMMER
--- NOTE | 2017-10-21 10:15 | NURSING ---
Patient wishes to be DNRCCA at this time, discussed the details of a DNRCCA and an information sheet given to patient. Patient's daughter, who is POA, signed for patient.
--- NOTE | 2017-10-21 10:41 | NURSING ---
DAUGHTER TO BRING IN INFO FOR 2 APPOINTMENTS SCHEDULED IN FOR A PACER CHECK. CATHERINE DURON AWARE
[2017-10-21] MEDS: Gabapentin 100 MG Capsule PO (11:40)
--- NOTE | 2017-10-21 14:02 | NURSING ---
PT REFUSING TO PUT BYPAP ON WHILE TAKING A NAP. REPORTED TO CATHERINE DURON
[2017-10-21] MEDS: Gabapentin 100 MG Capsule 200 MG PO (20:12)
[2017-10-21] MEDS: Atorvastatin Calcium 20 MG Tablet PO (20:12)
[2017-10-22 01:38] VITALS: PULSE 75; RESP 12; RESP 18; O2SAT 94
[2017-10-22 04:33] VITALS: PULSE 78; RESP 12; RESP 26; O2SAT 95
[2017-10-22] MEDS: Famotidine 20 MG Tablet PO ×2 (05:20→20:04)
[2017-10-22 06:17] LABS: International Normalized Ratio 1.2; Prothrombin Time (Protime)PT. 15.5 SECONDS (11.7-14.9)
[2017-10-22 06:32] LABS: Anion Gap 6 (5-15); BUN 14 mg/dL (7-18); BUN/Creat Ratio 24.6 RATIO (10-20); Chloride 99 mmol/L (98-107); Creatinine, Serum 0.57 mg/dL (0.55-1.02); EST Glomerular Filtration Rate 109 mL/min (>60); Est Glom Filt Rate - Afr Amer 132 mL/min (>60); Estimated Creatinine Clearance 37.12 ml/min; Glucose 117 mg/dL (74-106); Potassium 4.7 mmol/L (3.5-5.1); Sodium Level 138 mmol/L (136-145)
[2017-10-22 06:40] LABS: Absolute Lymphocyte Count 0.94 X10^3/ul (0.83-4.51); Absolute Neutrophil Count 6.7 X10^3/uL (2.0-7.7); Basophil# 0.04 X10^3/uL; Basophil% 0.4 % (0-1); Eosinophils% 19.6 % (0-5); Hematocrit 30.1 % (37-47); Hemoglobin 8.9 g/dl (12.0-15.0); Lymphocyte # 0.94 X10^3/ul (4.0); Lymphocyte % 8.8 % (19-41); Mean Corp Hgb Conc 29.6 g/gl (32-36); Mean Corpuscular Hgb 27.6 pg (27.0-32.0); Mean Corpuscular Volume 93.2 fL (81-99); Mean Platelet Vol. 10.1 fl (6.2-12.0); Monocyte% 8.4 % (0-10); Neutrophil # 6.74 X10^3/uL (2.7-7.7); Neutrophil % 62.7 % (47-70); Platelet Count 277 K/mm3 (150-450); RBC Distribution Width CV 14.9 % (11.6-14.6); RBC Distribution Width SD 50.5 fl (35.1-43.9); Red Blood Count 3.23 M/mm3 (4.2-5.4); White Blood Count 10.7 K/mm3 (4.4-11.0)
[2017-10-22 06:57] LABS: Differential Indicated SCAN CRITERIA MET; Eosinophil# 2.11 X10^3/uL; POSITIVE COUNT NO; POSITIVE DIFFERENTIAL YES; POSITIVE MORPHOLOGY YES
[2017-10-22 07:13] LABS: Differential Comment SCANNED
--- NOTE | 2017-10-22 08:15 | NURSING ---
Pt complains of not feeling well and having an upset stomach. Pt refusing all of her medications at this time. Will continue to monitor.
[2017-10-22 08:50] VITALS: PULSE 91; RESP 30; O2SAT 97
[2017-10-22] MEDS: Ipratropium/Albuterol Sulfate 3 ML AMPUL.NEB INHALATION ×2 (08:50→13:15)
[2017-10-22 10:00] VITALS: PULSE 68; RESP 20; O2SAT 94
[2017-10-22] MEDS: Gabapentin 100 MG Capsule PO (11:32)
[2017-10-22 12:19] LABS: Pathologist Review Reviewed
[2017-10-22 13:15] VITALS: PULSE 80; RESP 30; O2SAT 96
--- NOTE | 2017-10-22 14:41 | CASEMGMT ---
Brief interview for mental status (BIMS) and resident mood interview (PHQ-9) completed on this day. BIMS score.. PHQ-9 score 10/04.
--- NOTE | 2017-10-22 15:20 | MDS.RN ---
Pain interview for ERYN 10/23/17 completed.
[2017-10-22 15:32] VITALS: BP 125/69; PULSE 104; RESP 24; TEMP 37.3; O2SAT 95
[2017-10-22] MEDS: Ondansetron ODT 4 MG Tablet PO (17:12)
--- NOTE | 2017-10-22 17:17 | NURSING ---
Pt c/o sour stomach and having small amount of clear emesis. Pt afebrile and stating she has no pain, but is feeling worn out and nauseous. PRN zofran given by this nurse Malika ALEXANDER updated. will continue to monitor.
--- NOTE | 2017-10-22 18:06 | NURSING ---
Dr. Bach notified of nausea, pt condition, new orders received.
--- NOTE | 2017-10-22 18:07 | RAD_ITS ---
STUDY: X-RAY CHEST REASON FOR EXAM: Female, 82 years old. Fever TECHNIQUE: Frontal and lateral views of the chest COMPARISON: 10/17/2017 FINDINGS: Again noted are patchy airspace opacities in both lungs. These are slightly worse when compared with the prior exam. There are small bilateral pleural effusions. Again noted is a large hiatal hernia. The heart is normal in size. The patient is status post sternotomy. RAD/Chest PA and Lateral IMPRESSION: Bilateral airspace opacities which are worse when compared with the prior exam. Small bilateral pleural effusions. Electronically Signed: Sukh Arceo, at 19:05 EDT Tel , Service support ,
[2017-10-22 18:33] LABS: Bacteria 0 SEEN /hpf (None Seen); Mucous, Urine 0 SEEN /hpf (<or=2+); Red Blood Cells-Urine 0 SEEN /hpf (0-5); White Blood Cells 0 SEEN /hpf (0-5)
--- NOTE | 2017-10-22 18:40 | RAD_ITS ---
STUDY: X-RAY - ABDOMEN/PELVIS REASON FOR EXAM: Female, 82 years old. Vomiting TECHNIQUE: Two AP supine views of the abdomen and pelvis. COMPARISON: None. FINDINGS: There are multiple dilated loops of small bowel. This may represent an obstruction and further evaluation with CT is recommended. The patient is status post left hip arthroplasty. RAD/Abdomen Single View IMPRESSION: Multiple dilated loops of small bowel which may represent a small bowel obstruction. Further evaluation with CT is recommended. Electronically Signed: Sukh Arceo, at 19:21 EDT Tel , Service support ,
[2017-10-22 19:42] LABS: Color, Urine Yellow (Yellow); Glucose, Dipstick Normal (Normal); Ketone-Dipstick Negative (Negative); Protein-Dipstick Negative (Negative); Urine Bilirubin Dipstick Negative (Negative); Urine Clarity Sl Cldy (Clear)
[2017-10-22 19:43] LABS: Amorphous Sediment 1+ PHOS; Leukocyte Esterase-Dipstick Negative /ul (Negative); Nitrite-Dipstick Negative (Negative); Occult Blood-Urine Negative /ul (Negative); Squamous Epithelial Cells - UA 0-5 SEEN /hpf (5-10); Urine Urobilinogen Normal (Normal)
--- NOTE | 2017-10-22 20:09 | NURSING ---
Dr Bach aware CXR and KUB. N.O. CT with contrast. Pt aware.
[2017-10-23] MEDS: Ondansetron ODT 4 MG Tablet PO (01:51)
[2017-10-23] MEDS: Famotidine 20 MG Tablet PO ×2 (05:23→17:02)
[2017-10-23] MEDS: Amox/Clavulanate 875 MG Tablet PO (05:23)
[2017-10-23 06:01] LABS: International Normalized Ratio 1.2; Prothrombin Time (Protime)PT. 15.6 SECONDS (11.7-14.9)
[2017-10-23 06:40] VITALS: PULSE 67; RESP 16; O2SAT 97
[2017-10-23] MEDS: Ipratropium/Albuterol Sulfate 3 ML AMPUL.NEB INHALATION ×4 (06:40→19:30)
[2017-10-23 09:34] VITALS: PULSE 115; RESP 20; O2SAT 92
[2017-10-23 10:50] VITALS: PULSE 73; RESP 20
[2017-10-23] MEDS: Gabapentin 100 MG Capsule PO (11:27)
[2017-10-23 14:42] VITALS: PULSE 72; RESP 16
[2017-10-23 15:18] VITALS: BP 135/89; PULSE 102; RESP 24; TEMP 36.6; O2SAT 97
[2017-10-23] MEDS: Carvedilol 25 MG Tablet PO (17:01)
[2017-10-23] MEDS: metroNIDAZOLE 500 MG Tablet PO ×2 (17:01→21:32)
[2017-10-23] MEDS: Cefdinir 300 MG Capsule PO (17:02)
[2017-10-23] MEDS: Furosemide 40 MG Tablet PO (17:02)
[2017-10-23 19:30] VITALS: PULSE 861; RESP 16; O2SAT 99
[2017-10-23] MEDS: Atorvastatin Calcium 20 MG Tablet PO (21:31)
[2017-10-23] MEDS: Gabapentin 100 MG Capsule 200 MG PO (21:34)
[2017-10-24] VITALS (7 sets, daily range): BP systolic 96–112; BP diastolic 51–58; PULSE 78–99; RESP 18–31; TEMP 36.5; O2SAT 90–97
[2017-10-24] MEDS: Magnesium Oxide 400 MG Tablet PO (05:31)
[2017-10-24] MEDS: Famotidine 20 MG Tablet PO ×2 (05:31→18:28)
[2017-10-24] MEDS: Cefdinir 300 MG Capsule PO ×2 (05:31→18:29)
[2017-10-24] MEDS: Aspirin 81 MG TAB.CHEW PO (05:31)
[2017-10-24] MEDS: Furosemide 40 MG Tablet PO ×2 (05:31→18:29)
[2017-10-24] MEDS: Iron Polysaccharide Complex 150 MG CAPSULE PO (05:32)
[2017-10-24] MEDS: Carvedilol 25 MG Tablet PO ×2 (05:32→18:31)
[2017-10-24] MEDS: amLODIPine 5 MG Tablet PO (05:33)
[2017-10-24] MEDS: Ipratropium/Albuterol Sulfate 3 ML AMPUL.NEB INHALATION ×4 (07:00→19:50)
[2017-10-24 07:14] LABS: International Normalized Ratio 1.2
[2017-10-24 07:26] LABS: Anion Gap 5 (5-15); BUN 14 mg/dL (7-18); BUN/Creat Ratio 25.6 RATIO (10-20); Calcium,Total 9.1 mg/dL (8.5-10.1); Chloride 101 mmol/L (98-107); Creatinine, Serum 0.55 mg/dL (0.55-1.02); EST Glomerular Filtration Rate 114 mL/min (>60); Est Glom Filt Rate - Afr Amer 138 mL/min (>60); Estimated Creatinine Clearance 37.12 ml/min; Glucose 90 mg/dL (74-106); Potassium 4.9 mmol/L (3.5-5.1); Sodium Level 136 mmol/L (136-145)
[2017-10-24 07:28] LABS: Absolute Lymphocyte Count 1.53 X10^3/ul (0.83-4.51); Absolute Neutrophil Count 3.5 X10^3/uL (2.0-7.7); Basophil# 0.03 X10^3/uL; Basophil% 0.4 % (0-1); Hemoglobin 9.4 g/dl (12.0-15.0); Lymphocyte # 1.53 X10^3/ul (4.0); Mean Corp Hgb Conc 30.3 g/gl (32-36); Mean Corpuscular Hgb 27.8 pg (27.0-32.0); Mean Corpuscular Volume 91.7 fL (81-99); Mean Platelet Vol. 10.1 fl (6.2-12.0); Monocyte# 0.66 X10^3/uL; Monocyte% 9.1 % (0-10); Neutrophil # 3.45 X10^3/uL (2.7-7.7); Neutrophil % 47.4 % (47-70); POSITIVE COUNT NO; POSITIVE DIFFERENTIAL NO; POSITIVE MORPHOLOGY NO; Platelet Count 307 K/mm3 (150-450); RBC Distribution Width CV 14.9 % (11.6-14.6); RBC Distribution Width SD 50.1 fl (35.1-43.9); Red Blood Count 3.38 M/mm3 (4.2-5.4); White Blood Count 7.3 K/mm3 (4.4-11.0)
[2017-10-24] MEDS: metroNIDAZOLE 500 MG Tablet PO ×3 (08:03→18:29)
[2017-10-24] MEDS: Tuberculin,Purif.prot.deriv. 50 TU/ML Vial 5 ML ID (11:15)
[2017-10-24] MEDS: Gabapentin 100 MG Capsule PO (12:04)
[2017-10-24] MEDS: Atorvastatin Calcium 20 MG Tablet PO (20:24)
[2017-10-24] MEDS: Gabapentin 100 MG Capsule 200 MG PO (20:25)
[2017-10-25] MEDS: Magnesium Oxide 400 MG Tablet PO (06:04)
[2017-10-25] MEDS: Aspirin 81 MG TAB.CHEW PO (06:04)
[2017-10-25] MEDS: Famotidine 20 MG Tablet PO ×2 (06:04→17:51)
[2017-10-25] MEDS: Carvedilol 25 MG Tablet PO ×2 (06:04→17:49)
[2017-10-25] MEDS: Cefdinir 300 MG Capsule PO ×2 (06:04→17:50)
[2017-10-25] MEDS: amLODIPine 5 MG Tablet PO (06:05)
[2017-10-25] MEDS: Iron Polysaccharide Complex 150 MG CAPSULE PO (06:05)
[2017-10-25] MEDS: Furosemide 40 MG Tablet PO ×2 (06:05→17:50)
[2017-10-25 06:56] VITALS: PULSE 88; RESP 22; O2SAT 98
[2017-10-25] MEDS: Ipratropium/Albuterol Sulfate 3 ML AMPUL.NEB INHALATION ×3 (06:56→14:57)
[2017-10-25 07:06] LABS: International Normalized Ratio 1.2; Prothrombin Time (Protime)PT. 15.3 SECONDS (11.7-14.9)
[2017-10-25] MEDS: metroNIDAZOLE 500 MG Tablet PO ×3 (07:58→17:49)
[2017-10-25 11:04] VITALS: PULSE 87; RESP 20
[2017-10-25] MEDS: Gabapentin 100 MG Capsule PO (11:52)
[2017-10-25 14:57] VITALS: PULSE 85; RESP 22
[2017-10-25 15:08] VITALS: BP 124/67; PULSE 80; RESP 18; TEMP 36.8; O2SAT 99
[2017-10-25 18:30] VITALS: PULSE 81; RESP 30
[2017-10-25] MEDS: Atorvastatin Calcium 20 MG Tablet PO (20:06)
[2017-10-25] MEDS: Gabapentin 100 MG Capsule 200 MG PO (20:06)
[2017-10-25 20:13] VITALS: PULSE 80; RESP 20; O2SAT 91
[2017-10-26] MEDS: Iron Polysaccharide Complex 150 MG CAPSULE PO (05:54)
[2017-10-26] MEDS: Cefdinir 300 MG Capsule PO ×2 (05:54→17:04)
[2017-10-26] MEDS: Magnesium Oxide 400 MG Tablet PO (05:54)
[2017-10-26] MEDS: Furosemide 40 MG Tablet PO ×2 (05:54→17:04)
[2017-10-26] MEDS: Aspirin 81 MG TAB.CHEW PO (05:54)
[2017-10-26] MEDS: Famotidine 20 MG Tablet PO ×2 (05:55→17:04)
[2017-10-26] MEDS: amLODIPine 5 MG Tablet PO (05:55)
[2017-10-26] MEDS: Carvedilol 25 MG Tablet PO ×2 (05:55→17:04)
[2017-10-26 06:16] LABS: International Normalized Ratio 1.3; Prothrombin Time (Protime)PT. 15.9 SECONDS (11.7-14.9)
[2017-10-26 06:35] VITALS: PULSE 90; RESP 16; O2SAT 95
[2017-10-26] MEDS: Ipratropium/Albuterol Sulfate 3 ML AMPUL.NEB INHALATION ×3 (06:35→14:33)
[2017-10-26] MEDS: metroNIDAZOLE 500 MG Tablet PO ×3 (07:59→17:04)
[2017-10-26 10:30] VITALS: PULSE 88; RESP 16; O2SAT 94
[2017-10-26] MEDS: Gabapentin 100 MG Capsule PO (11:18)
[2017-10-26 14:35] VITALS: PULSE 66; RESP 16; O2SAT 95
[2017-10-26 15:19] VITALS: BP 129/69; PULSE 90; RESP 18; TEMP 36.8; O2SAT 96
--- NOTE | 2017-10-26 16:20 | PN.ID_ITS ---
Subjective: Feeling better, breathing better, no fever, no issues with hip - Physical Exam General: Alert, Cooperative, No apparent distress Lungs: Clear to auscultation, Normal air movement Cardiovascular: Regular rate, Regular Rhythm Abdomen: Soft, Non Tender, Non-Distended Skin: No rashes, Incision - L hip Vital Signs Temp Pulse Resp BP Pulse Ox 98.2 F 90 18 129/69 H 96 10/26/17 15:19 10/26/17 15:19 10/26/17 15:19 10/26/17 15:19 10/26/17 15:19 Oxygen Flow Rate (L/min) 4 Oxygen Delivery Method Nasal Cannula Weight: 65.9 kg Body Mass Index (BMI) 37.5 Finger Stick Blood Glucose 156 Intake and Output for Last 24 Hours 10/24/17 10/25/17 10/26/17 23:59 23:59 23:59 Intake Total 600 / 600 360 / 360 120 / 120 Balance 600 / 600 360 / 360 120 / 120 Microbiology Past 72 Hours 10/22/17 18:20 Urine Culture - Final Urine, Clean Catch Culture exhibits no growth. Laboratory Tests Past 24 Hrs 10/26/17 05:05 PT 15.9 H INR 1.3 Medical Necessity - Tobacco Use Smoking Status: Smoker, status unknown Route of nutrition/ use of supplements: [] Nutritional Intake: [] IV Site: [] Yang Catheter: [] - Assessment/Plan Antibiotics: [] Assessment/Plan: [] Superficial surgical site infection s/p L total hip replacement 07/21/17 - now s/ p debridement 09/[address] Parr with cxs (+) for bacteroides. CT showed small fluid collection near surgical site. Wound vac in place. Had some increased SOB and cxr changes. Now improving on omnicef and flagyl. Will follow.
--- NOTE | 2017-10-26 16:40 | CHAPLAIN ---
Type of Pastoral Visit ___ Initial Visit _x__ Follow-up Visit ___ On-call Visit ___ General Patient Visit ___ Spiritual Assessment ___ Family Conference ___ Bereavement ___ Rapid Response ___ Code Blue ___ Other (describe below) Pastoral Care Referral From _x__ Patient ___ Family ___ Nurse ___ Physician ___ Cardiology Rn ___ Purchasing Expeditor ___ Other (describe below) Sacrament/Intervention _x__ Active listening ___ Anointing ___ Yazidism ___ Bereavement ___ Communion ___ Yaneth exploration ___ ___ Life review _x__ Prayer ___ Reconciliation ___ Sacrament of Sick ___ Supportive presence ___ Wedding ___ Other (describe below) Pastoral Comments patient says that there is improvement and is it also apparent; prayer requested for continual healing
[2017-10-26 19:03] VITALS: O2SAT 94
[2017-10-26] MEDS: Gabapentin 100 MG Capsule 200 MG PO (20:30)
[2017-10-26] MEDS: Atorvastatin Calcium 20 MG Tablet PO (20:30)
[2017-10-26] MEDS: Menthol/Lanolin/Calamine/Znox 113 GM Tube 1 APPLIC TOPICAL (20:30)
[2017-10-27] MEDS: Cefdinir 300 MG Capsule PO ×2 (05:19→17:02)
[2017-10-27] MEDS: Furosemide 40 MG Tablet PO ×2 (05:19→17:02)
[2017-10-27] MEDS: Aspirin 81 MG TAB.CHEW PO (05:19)
[2017-10-27] MEDS: Famotidine 20 MG Tablet PO ×2 (05:19→17:02)
[2017-10-27] MEDS: Carvedilol 25 MG Tablet PO ×2 (05:19→17:02)
[2017-10-27] MEDS: amLODIPine 5 MG Tablet PO (05:19)
[2017-10-27] MEDS: Magnesium Oxide 400 MG Tablet PO (05:19)
[2017-10-27] MEDS: Menthol/Lanolin/Calamine/Znox 113 GM Tube 1 APPLIC TOPICAL ×3 (05:22→20:05)
[2017-10-27] MEDS: Iron Polysaccharide Complex 150 MG CAPSULE PO (05:25)
[2017-10-27 06:02] LABS: International Normalized Ratio 1.3; Prothrombin Time (Protime)PT. 15.7 SECONDS (11.7-14.9)
[2017-10-27 06:43] VITALS: PULSE 99; RESP 16; O2SAT 99
[2017-10-27] MEDS: Ipratropium/Albuterol Sulfate 3 ML AMPUL.NEB INHALATION ×4 (06:43→19:30)
[2017-10-27] MEDS: Ondansetron ODT 4 MG Tablet PO (07:37)
[2017-10-27] MEDS: metroNIDAZOLE 500 MG Tablet PO ×3 (07:38→17:02)
--- NOTE | 2017-10-27 07:42 | NURSING ---
PT HAS NAUSEA THIS MORNING FROM DRINKING ENSURE PER PT STATEMENT. PRN ZOFRAN GIVEN.
[2017-10-27 10:54] VITALS: PULSE 90; RESP 20
[2017-10-27] MEDS: Gabapentin 100 MG Capsule PO (11:32)
[2017-10-27 15:26] VITALS: BP 112/52; PULSE 88; RESP 22; TEMP 37; O2SAT 98
[2017-10-27 15:43] VITALS: PULSE 78; RESP 20
[2017-10-27 20:00] VITALS: BP 133/84; PULSE 80; RESP 20; TEMP 36.4; O2SAT 94
[2017-10-27] MEDS: Gabapentin 100 MG Capsule 200 MG PO (20:07)
[2017-10-27] MEDS: Atorvastatin Calcium 20 MG Tablet PO (20:07)
[2017-10-28] MEDS: Magnesium Oxide 400 MG Tablet PO (05:09)
[2017-10-28] MEDS: Furosemide 40 MG Tablet PO ×2 (05:09→17:49)
[2017-10-28] MEDS: Famotidine 20 MG Tablet PO ×2 (05:09→17:49)
[2017-10-28] MEDS: amLODIPine 5 MG Tablet PO (05:09)
[2017-10-28] MEDS: Cefdinir 300 MG Capsule PO ×2 (05:09→17:49)
[2017-10-28] MEDS: Aspirin 81 MG TAB.CHEW PO (05:09)
[2017-10-28] MEDS: Carvedilol 25 MG Tablet PO ×2 (05:10→17:49)
[2017-10-28] MEDS: Iron Polysaccharide Complex 150 MG CAPSULE PO (05:10)
[2017-10-28] MEDS: Menthol/Lanolin/Calamine/Znox 113 GM Tube 1 APPLIC TOPICAL ×3 (05:11→20:29)
[2017-10-28 06:22] LABS: International Normalized Ratio 1.3; Prothrombin Time (Protime)PT. 16.2 SECONDS (11.7-14.9)
[2017-10-28 06:40] VITALS: PULSE 85; RESP 20; O2SAT 99
[2017-10-28] MEDS: Ipratropium/Albuterol Sulfate 3 ML AMPUL.NEB INHALATION ×4 (06:40→18:49)
[2017-10-28] MEDS: metroNIDAZOLE 500 MG Tablet PO ×3 (08:23→17:49)
[2017-10-28 10:00] VITALS: PULSE 80; RESP 20; O2SAT 96
[2017-10-28 11:08] VITALS: PULSE 96; RESP 20
[2017-10-28] MEDS: Gabapentin 100 MG Capsule PO (11:49)
--- NOTE | 2017-10-28 11:51 | PCM.PN.RX ---
<Cj Novoa D - Last Filed: 10/28/17 11:51> Progress Note - Pharmacy Subjective: TCU Admission Objective: Allergies adhesive Allergy (Verified 09/30/17 21:57) Unknown etodolac Allergy (Verified 09/30/17 21:57) Unknown magnesium Allergy (Verified 09/30/17 21:57) Unknown melatonin Allergy (Verified 09/30/17 21:57) Unknown nitroglycerin Allergy (Verified 09/30/17 21:57) Unknown oxycodone HCl [From Percocet] Allergy (Verified 09/30/17 21:57) Unknown phenobarbital Allergy (Verified 09/30/17 21:57) Unknown tolmetin sodium [From Tolectin] Allergy (Verified 09/30/17 21:57) Unknown venlafaxine Allergy (Verified 09/30/17 21:57) Unknown coenzyme Q10 Allergy (Uncoded 09/30/17 21:57) Unknown nitropatch Allergy (Uncoded 09/30/17 21:57) unknown Current Medications Generic Name Dose Route Start Last Admin Trade Name Freq PRN Reason Stop Dose Admin Albuterol Sulfate 2.5 mg 10/17/17 09:27 Ventolin Aerosols INHALATION Q2H PRN PRN SHORTNESS OF BREATH Albuterol/Ipratropium 3 ml 10/16/17 23:00 10/28/17 11:08 Duoneb INHALATION 3 ml Q4HWA.RT WENDY Administration Amlodipine Besylate 5 mg 10/17/17 06:00 10/28/17 05:09 Norvasc PO 5 mg DAILY [facility] Administration Aspirin 81 mg 10/17/17 06:00 10/28/17 05:09 Aspirin, Baby PO 81 mg DAILY [facility] Administration Atorvastatin Calcium 20 mg 10/16/17 22:00 10/27/17 20:07 Lipitor PO 20 mg QHS WENDY Administration Calamine/Phenol 1 applic 10/26/17 22:00 10/28/17 05:11 Calmoseptine Ointment TOPICAL 1 applicatio TID WENDY Administration Protocol Carvedilol 25 mg 10/17/17 06:00 10/28/17 05:10 Coreg PO 25 mg BID WENDY Administration Cefdinir 300 mg 10/23/17 18:00 10/28/17 05:09 Omnicef [Equiv] PO 300 mg Q12 [facility]ENDY Administration Famotidine 20 mg 10/17/17 06:00 10/28/17 05:09 Pepcid PO 20 mg BID WENDY Administration Furosemide 40 mg 10/20/17 06:00 10/28/17 05:09 Lasix PO 40 mg BID WENDY Administration Gabapentin 100 mg 10/17/17 12:00 10/28/17 11:49 Neurontin PO 100 mg 1200 WENDY Administration Gabapentin 200 mg 10/16/17 22:00 10/27/17 20:07 Neurontin PO 200 mg QHS WENDY Administration Magnesium Oxide 400 mg 10/17/17 06:00 10/28/17 05:09 Mag-Ox 400 PO 400 mg DAILY [facility] Administration Metronidazole 500 mg 10/23/17 12:45 10/28/17 08:23 Flagyl PO 500 mg TIDCM [facility] Administration Nitroglycerin 0.4 mg 10/17/17 09:27 Nitrostat SUBLINGUAL Q5M PRN CARDIAC/CHEST PAIN Nutritional Formula (Lactose Free) 120 ml 10/20/17 06:00 10/28/17 11:45 Ensure Enlive PO Not Given 4X/DAY [facility] Ondansetron HCl 4 mg 10/22/17 09:41 10/27/17 07:37 Zofran Odt PO 4 mg Q6H PRN PRN Administration NAUSEA Polysaccharide Iron Complex 150 mg 10/19/17 06:00 10/28/17 05:10 Ferrex 150 PO 150 mg DAILY [facility] Administration Potassium Chloride 20 meq 10/20/17 22:00 10/28/17 05:10 K-Dur PO 20 meq TID [facility] Administration Senna 2 tablet 10/16/17 23:00 Senokot PO BID PRN PRN Constipation Warfarin Sodium 3 mg 10/27/17 17:00 10/27/17 17:03 Coumadin (Pbkc) PO 3 mg DAILY@1700 [facility] Administration Vital Signs Temp Pulse Resp BP Pulse Ox 97.6 F L 96 20 H 133/84 H 96 10/27/17 20:00 10/28/17 11:08 10/28/17 11:08 10/27/17 20:00 10/28/17 10:00 Oxygen Flow Rate (L/min) 5 Oxygen Delivery Method Nasal Cannula Weight: 64.1 kg Body Mass Index (BMI) 37.5 Finger Stick Blood Glucose 156 Sodium 136 mmol/L (136-145) 10/24/17 06:35 Potassium 4.9 mmol/L (3.5-5.1) 10/24/17 06:35 Chloride 101 mmol/L (98-107) 10/24/17 06:35 Carbon Dioxide 30.0 mmol/L (21.0-32.0) 10/24/17 06:35 Anion Gap 5 (5-15) 10/24/17 06:35 BUN 14 mg/dL (7-18) 10/24/17 06:35 Creatinine 0.55 mg/dL (0.55-1.02) 10/24/17 06:35 Est GFR (MDRD) Af Amer 138 mL/min (>60) 10/24/17 06:35 Est GFR (MDRD) Non-Af 114 mL/min (>60) 10/24/17 06:35 BUN/Creatinine Ratio 25.6 RATIO (10-20) H 10/24/17 06:35 Glucose 90 mg/dL (74-106) 10/24/17 06:35 Assessment/Plan: 1) Cardiac Amlodipine, ASA, atorvastatin, carvedilol, warfarin, prn ntg. Continue to monitor PT/INR and adjust dose as needed for goal INR, BP/HR, lipids, hepatic enzymes, s/s bleeding. * 2) ID Metronidazole, cefdinir. Please clarify if medications should have a stop date. Continue to monitor s/s infection. 3) Fluid Furosemide/KCl. Continue to monitor renal function, electrolytes. 4) Pain Gabapentin twice daily. Continue to monitor daily pain scores. 5) Pulm Duoneb aerosols scheduled, prn albuterol aerosols. Continue to monitor prn medication use, for shortness of breath. 6) Nutrition Ensure, Fe, Mg. Continue to monitor electrolytes. 7) GI Famotidine, ondansetron prn. Continue to monitor prn medication use, for s/s GI distress. Psychotropic Medications: None Unnecessary Medications: None Bowel Regimen: 8) Senna as needed, last BM yesterday. Continue to monitor prn medication use, for constipation/diarrhea. Date of Note:: 10/28/17 - Provider Comments Provider responsibility: Provider responsible to enter orders to implement recommendations <Isreal,Constantino Chi - Last Filed: 10/28/17 16:09> Progress Note - Pharmacy Subjective: [] Objective: Allergies adhesive Allergy (Verified 09/30/17 21:57) Unknown etodolac Allergy (Verified 09/30/17 21:57) Unknown magnesium Allergy (Verified 09/30/17 21:57) Unknown melatonin Allergy (Verified 09/30/17 21:57) Unknown nitroglycerin Allergy (Verified 09/30/17 21:57) Unknown oxycodone HCl [From Percocet] Allergy (Verified 09/30/17 21:57) Unknown phenobarbital Allergy (Verified 09/30/17 21:57) Unknown tolmetin sodium [From Tolectin] Allergy (Verified 09/30/17 21:57) Unknown venlafaxine Allergy (Verified 09/30/17 21:57) Unknown coenzyme Q10 Allergy (Uncoded 09/30/17 21:57) Unknown nitropatch Allergy (Uncoded 09/30/17 21:57) unknown Current Medications Generic Name Dose Route Start Last Admin Trade Name Freq PRN Reason Stop Dose Admin Albuterol Sulfate 2.5 mg 10/17/17 09:27 Ventolin Aerosols INHALATION Q2H PRN PRN SHORTNESS OF BREATH Albuterol/Ipratropium 3 ml 10/16/17 23:00 10/28/17 15:11 Duoneb INHALATION 3 ml Q4HWA.RT WENDY Administration Amlodipine Besylate 5 mg 10/17/17 06:00 10/28/17 05:09 Norvasc PO 5 mg DAILY [facility] Administration Aspirin 81 mg 10/17/17 06:00 10/28/17 05:09 Aspirin, Baby PO 81 mg DAILY [facility] Administration Atorvastatin Calcium 20 mg 10/16/17 22:00 10/27/17 20:07 Lipitor PO 20 mg QHS [facility] Administration Calamine/Phenol 1 applic 10/26/17 22:00 10/28/17 13:32 Calmoseptine Ointment TOPICAL 1 applicatio TID [facility] Administration Protocol Carvedilol 25 mg 10/17/17 06:00 10/28/17 05:10 Coreg PO 25 mg BID [facility] Administration Cefdinir 300 mg 10/23/17 18:00 10/28/17 05:09 Omnicef [Equiv] PO 300 mg Q12 [facility] Administration Famotidine 20 mg 10/17/17 06:00 10/28/17 05:09 Pepcid PO 20 mg BID [facility] Administration Furosemide 40 mg 10/20/17 06:00 06/20/18 05:09 Lasix PO 40 mg BID [facility] Administration Gabapentin 100 mg 10/17/17 12:00 10/28/17 11:49 Neurontin PO 100 mg 1200 [facility] Administration Gabapentin 200 mg 10/16/17 22:00 10/27/17 20:07 Neurontin PO 200 mg QHS [facility] Administration Magnesium Oxide 400 mg 10/17/17 06:00 10/28/17 05:09 Mag-Ox 400 PO 400 mg DAILY [facility] Administration Metronidazole 500 mg 10/23/17 12:45 10/28/17 13:30 Flagyl PO 500 mg TIDCM [facility] Administration Nitroglycerin 0.4 mg 10/17/17 09:27 Nitrostat SUBLINGUAL Q5M PRN CARDIAC/CHEST PAIN Nutritional Formula (Lactose Free) 120 ml 10/20/17 06:00 10/28/17 11:45 Ensure Enlive PO Not Given 4X/DAY [facility] Ondansetron HCl 4 mg 10/22/17 09:41 10/27/17 07:37 Zofran Odt PO 4 mg Q6H PRN PRN Administration NAUSEA Polysaccharide Iron Complex 150 mg 10/19/17 06:00 10/28/17 05:10 Ferrex 150 PO 150 mg DAILY [facility] Administration Potassium Chloride 20 meq 10/20/17 22:00 10/28/17 13:31 K-Dur PO 20 meq TID [facility] Administration Senna 2 tablet 10/16/17 23:00 Senokot PO BID PRN PRN Constipation Warfarin Sodium 3 mg 10/27/17 17:00 10/27/17 17:03 Coumadin (Pbkc) PO 3 mg DAILY@1700 [facility] Administration Vital Signs Temp Pulse Resp BP Pulse Ox 97.9 F 87 20 H 119/63 100 10/28/17 15:08 10/28/17 15:11 10/28/17 15:11 10/28/17 15:08 10/28/17 15:08 Oxygen Flow Rate (L/min) 5 Oxygen Delivery Method Nasal Cannula Weight: 64.1 kg Body Mass Index (BMI) 37.5 Finger Stick Blood Glucose 156 Sodium 136 mmol/L (136-145) 10/24/17 06:35 Potassium 4.9 mmol/L (3.5-5.1) 10/24/17 06:35 Chloride 101 mmol/L (98-107) 10/24/17 06:35 Carbon Dioxide 30.0 mmol/L (21.0-32.0) 10/24/17 06:35 Anion Gap 5 (5-15) 10/24/17 06:35 BUN 14 mg/dL (7-18) 10/24/17 06:35 Creatinine 0.55 mg/dL (0.55-1.02) 10/24/17 06:35 Est GFR (MDRD) Af Amer 138 mL/min (>60) 10/24/17 06:35 Est GFR (MDRD) Non-Af 114 mL/min (>60) 10/24/17 06:35 BUN/Creatinine Ratio 25.6 RATIO (10-20) H 10/24/17 06:35 Glucose 90 mg/dL (74-106) 10/24/17 06:35 Assessment/Plan: Psychotropic Medications: Unnecessary Medications: Bowel Regimen: - Provider Comments Provider responsibility: Provider responsible to enter orders to implement recommendations Provider Comments to Recommendations by Pharmacy: Agree
--- NOTE | 2017-10-28 11:52 | NURSING ---
Dr. Bach aware of INR this AM, NNO
--- NOTE | 2017-10-28 11:57 | PHA.CONS_ITS ---
<Cj Novoa D - Last Filed: 10/28/17 11:51> Progress Note - Pharmacy Subjective: TCU Admission Objective: Allergies adhesive Allergy (Verified 09/30/17 21:57) Unknown etodolac Allergy (Verified 09/30/17 21:57) Unknown magnesium Allergy (Verified 09/30/17 21:57) Unknown melatonin Allergy (Verified 09/30/17 21:57) Unknown nitroglycerin Allergy (Verified 09/30/17 21:57) Unknown oxycodone HCl [From Percocet] Allergy (Verified 09/30/17 21:57) Unknown phenobarbital Allergy (Verified 09/30/17 21:57) Unknown tolmetin sodium [From Tolectin] Allergy (Verified 09/30/17 21:57) Unknown venlafaxine Allergy (Verified 09/30/17 21:57) Unknown coenzyme Q10 Allergy (Uncoded 09/30/17 21:57) Unknown nitropatch Allergy (Uncoded 09/30/17 21:57) unknown Current Medications Generic Name Dose Route Start Last Admin Trade Name Freq PRN Reason Stop Dose Admin Albuterol Sulfate 2.5 mg 10/17/17 09:27 Ventolin Aerosols INHALATION Q2H PRN PRN SHORTNESS OF BREATH Albuterol/Ipratropium 3 ml 10/16/17 23:00 10/28/17 11:08 Duoneb INHALATION 3 ml Q4HWA.RT WENDY Administration Amlodipine Besylate 5 mg 10/17/17 06:00 10/28/17 05:09 Norvasc PO 5 mg DAILY [facility] Administration Aspirin 81 mg 10/17/17 06:00 10/28/17 05:09 Aspirin, Baby PO 81 mg DAILY [facility] Administration Atorvastatin Calcium 20 mg 10/16/17 22:00 10/27/17 20:07 Lipitor PO 20 mg QHS [facility] Administration Calamine/Phenol 1 applic 10/26/17 22:00 10/28/17 05:11 Calmoseptine Ointment TOPICAL 1 applicatio TID [facility] Administration Protocol Carvedilol 25 mg 10/17/17 06:00 10/28/17 05:10 Coreg PO 25 mg BID [facility] Administration Cefdinir 300 mg 10/23/17 18:00 10/28/17 05:09 Omnicef [Equiv] PO 300 mg Q12 [facility] Administration Famotidine 20 mg 10/17/17 06:00 10/28/17 05:09 Pepcid PO 20 mg BID [facility] Administration Furosemide 40 mg 10/20/17 06:00 10/28/17 05:09 Lasix PO 40 mg BID [facility] Administration Gabapentin 100 mg 10/17/17 12:00 10/28/17 11:49 Neurontin PO 100 mg 1200 [facility] Administration Gabapentin 200 mg 10/16/17 22:00 10/27/17 20:07 Neurontin PO 200 mg QHS [facility] Administration Magnesium Oxide 400 mg 10/17/17 06:00 10/28/17 05:09 Mag-Ox 400 PO 400 mg DAILY [facility] Administration Metronidazole 500 mg 10/23/17 12:45 10/28/17 08:23 Flagyl PO 500 mg TIDCM [facility] Administration Nitroglycerin 0.4 mg 10/17/17 09:27 Nitrostat SUBLINGUAL Q5M PRN CARDIAC/CHEST PAIN Nutritional Formula (Lactose Free) 120 ml 10/20/17 06:00 10/28/17 11:45 Ensure Enlive PO Not Given 4X/DAY [facility] Ondansetron HCl 4 mg 10/22/17 09:41 10/27/17 07:37 Zofran Odt PO 4 mg Q6H PRN PRN Administration NAUSEA Polysaccharide Iron Complex 150 mg 10/19/17 06:00 10/28/17 05:10 Ferrex 150 PO 150 mg DAILY [facility] Administration Potassium Chloride 20 meq 10/20/17 22:00 10/28/17 05:10 K-Dur PO 20 meq TID [facility] Administration Senna 2 tablet 10/16/17 23:00 Senokot PO BID PRN PRN Constipation Warfarin Sodium 3 mg 10/27/17 17:00 10/27/17 17:03 Coumadin (Pbkc) PO 3 mg DAILY@1700 [facility] Administration Vital Signs Temp Pulse Resp BP Pulse Ox 97.6 F L 96 20 H 133/84 H 96 10/27/17 20:00 10/28/17 11:08 10/28/17 11:08 10/27/17 20:00 10/28/17 10:00 Oxygen Flow Rate (L/min) 5 Oxygen Delivery Method Nasal Cannula Weight: 64.1 kg Body Mass Index (BMI) 37.5 Finger Stick Blood Glucose 156 Sodium 136 mmol/L (136-145) 10/24/17 06:35 Potassium 4.9 mmol/L (3.5-5.1) 10/24/17 06:35 Chloride 101 mmol/L (98-107) 10/24/17 06:35 Carbon Dioxide 30.0 mmol/L (21.0-32.0) 10/24/17 06:35 Anion Gap 5 (5-15) 10/24/17 06:35 BUN 14 mg/dL (7-18) 10/24/17 06:35 Creatinine 0.55 mg/dL (0.55-1.02) 10/24/17 06:35 Est GFR (MDRD) Af Amer 138 mL/min (>60) 10/24/17 06:35 Est GFR (MDRD) Non-Af 114 mL/min (>60) 10/24/17 06:35 BUN/Creatinine Ratio 25.6 RATIO (10-20) H 10/24/17 06:35 Glucose 90 mg/dL (74-106) 10/24/17 06:35 Assessment/Plan: 1) Cardiac Amlodipine, ASA, atorvastatin, carvedilol, warfarin, prn ntg. Continue to monitor PT/INR and adjust dose as needed for goal INR, BP/HR, lipids, hepatic enzymes, s/s bleeding. * 2) ID Metronidazole, cefdinir. Please clarify if medications should have a stop date. Continue to monitor s/s infection. 3) Fluid Furosemide/KCl. Continue to monitor renal function, electrolytes. 4) Pain Gabapentin twice daily. Continue to monitor daily pain scores. 5) Pulm Duoneb aerosols scheduled, prn albuterol aerosols. Continue to monitor prn medication use, for shortness of breath. 6) Nutrition Ensure, Fe, Mg. Continue to monitor electrolytes. 7) GI Famotidine, ondansetron prn. Continue to monitor prn medication use, for s/s GI distress. Psychotropic Medications: None Unnecessary Medications: None Bowel Regimen: 8) Senna as needed, last BM yesterday. Continue to monitor prn medication use, for constipation/diarrhea. Date of Note:: 10/28/17 - Provider Comments Provider responsibility: Provider responsible to enter orders to implement recommendations <Isreal,Constantino Chi - Last Filed: 10/28/17 16:09> Progress Note - Pharmacy Subjective: [] Objective: Allergies adhesive Allergy (Verified 09/30/17 21:57) Unknown etodolac Allergy (Verified 09/30/17 21:57) Unknown magnesium Allergy (Verified 09/30/17 21:57) Unknown melatonin Allergy (Verified 09/30/17 21:57) Unknown nitroglycerin Allergy (Verified 09/30/17 21:57) Unknown oxycodone HCl [From Percocet] Allergy (Verified 09/30/17 21:57) Unknown phenobarbital Allergy (Verified 09/30/17 21:57) Unknown tolmetin sodium [From Tolectin] Allergy (Verified 09/30/17 21:57) Unknown venlafaxine Allergy (Verified 09/30/17 21:57) Unknown coenzyme Q10 Allergy (Uncoded 09/30/17 21:57) Unknown nitropatch Allergy (Uncoded 09/30/17 21:57) unknown Current Medications Generic Name Dose Route Start Last Admin Trade Name Freq PRN Reason Stop Dose Admin Albuterol Sulfate 2.5 mg 10/17/17 09:27 Ventolin Aerosols INHALATION Q2H PRN PRN SHORTNESS OF BREATH Albuterol/Ipratropium 3 ml 10/16/17 23:00 10/28/17 15:11 Duoneb INHALATION 3 ml Q4HWA.RT WENDY Administration Amlodipine Besylate 5 mg 10/17/17 06:00 10/28/17 05:09 Norvasc PO 5 mg DAILY [facility] Administration Aspirin 81 mg 10/17/17 06:00 10/28/17 05:09 Aspirin, Baby PO 81 mg DAILY [facility] Administration Atorvastatin Calcium 20 mg 10/16/17 22:00 10/27/17 20:07 Lipitor PO 20 mg QHS [facility] Administration Calamine/Phenol 1 applic 10/26/17 22:00 10/28/17 13:32 Calmoseptine Ointment TOPICAL 1 applicatio TID [facility] Administration Protocol Carvedilol 25 mg 10/17/17 06:00 10/28/17 05:10 Coreg PO 25 mg BID [facility] Administration Cefdinir 300 mg 10/23/17 18:00 10/28/17 05:09 Omnicef [Equiv] PO 300 mg Q12 [facility] Administration Famotidine 20 mg 10/17/17 06:00 10/28/17 05:09 Pepcid PO 20 mg BID [facility] Administration Furosemide 40 mg 10/20/17 06:00 06/20/18 05:09 Lasix PO 40 mg BID [facility] Administration Gabapentin 100 mg 10/17/17 12:00 10/28/17 11:49 Neurontin PO 100 mg 1200 [facility] Administration Gabapentin 200 mg 10/16/17 22:00 10/27/17 20:07 Neurontin PO 200 mg QHS [facility] Administration Magnesium Oxide 400 mg 10/17/17 06:00 10/28/17 05:09 Mag-Ox 400 PO 400 mg DAILY [facility] Administration Metronidazole 500 mg 10/23/17 12:45 10/28/17 13:30 Flagyl PO 500 mg TIDCM [facility] Administration Nitroglycerin 0.4 mg 10/17/17 09:27 Nitrostat SUBLINGUAL Q5M PRN CARDIAC/CHEST PAIN Nutritional Formula (Lactose Free) 120 ml 10/20/17 06:00 10/28/17 11:45 Ensure Enlive PO Not Given 4X/DAY [facility] Ondansetron HCl 4 mg 10/22/17 09:41 10/27/17 07:37 Zofran Odt PO 4 mg Q6H PRN PRN Administration NAUSEA Polysaccharide Iron Complex 150 mg 10/19/17 06:00 10/28/17 05:10 Ferrex 150 PO 150 mg DAILY [facility] Administration Potassium Chloride 20 meq 10/20/17 22:00 10/28/17 13:31 K-Dur PO 20 meq TID [facility] Administration Senna 2 tablet 10/16/17 23:00 Senokot PO BID PRN PRN Constipation Warfarin Sodium 3 mg 10/27/17 17:00 10/27/17 17:03 Coumadin (Pbkc) PO 3 mg DAILY@1700 [facility] Administration Vital Signs Temp Pulse Resp BP Pulse Ox 97.9 F 87 20 H 119/63 100 10/28/17 15:08 10/28/17 15:11 10/28/17 15:11 10/28/17 15:08 10/28/17 15:08 Oxygen Flow Rate (L/min) 5 Oxygen Delivery Method Nasal Cannula Weight: 64.1 kg Body Mass Index (BMI) 37.5 Finger Stick Blood Glucose 156 Sodium 136 mmol/L (136-145) 10/24/17 06:35 Potassium 4.9 mmol/L (3.5-5.1) 10/24/17 06:35 Chloride 101 mmol/L (98-107) 10/24/17 06:35 Carbon Dioxide 30.0 mmol/L (21.0-32.0) 10/24/17 06:35 Anion Gap 5 (5-15) 10/24/17 06:35 BUN 14 mg/dL (7-18) 10/24/17 06:35 Creatinine 0.55 mg/dL (0.55-1.02) 10/24/17 06:35 Est GFR (MDRD) Af Amer 138 mL/min (>60) 10/24/17 06:35 Est GFR (MDRD) Non-Af 114 mL/min (>60) 10/24/17 06:35 BUN/Creatinine Ratio 25.6 RATIO (10-20) H 10/24/17 06:35 Glucose 90 mg/dL (74-106) 10/24/17 06:35 Assessment/Plan: Psychotropic Medications: Unnecessary Medications: Bowel Regimen: - Provider Comments Provider responsibility: Provider responsible to enter orders to implement recommendations Provider Comments to Recommendations by Pharmacy: Agree
--- NOTE | 2017-10-28 12:45 | CASEMGMT ---
BIMS and PHQ9 interviews completed on this date for MDS assessment. BIMS PHQ9 11/04 FREDA Pantoja
--- NOTE | 2017-10-28 13:21 | MDS.RN ---
Information for the mds was obtained from review of the clinical record-computer and paper chart due hospital computers down house wide, interview of resident, staff, and direct observation of resident's care.
[2017-10-28 15:08] VITALS: BP 119/63; PULSE 83; RESP 24; TEMP 36.6; O2SAT 100
[2017-10-28 15:11] VITALS: PULSE 87; RESP 20
[2017-10-28] MEDS: Ondansetron ODT 4 MG Tablet PO (17:46)
[2017-10-28 18:49] VITALS: PULSE 88; RESP 19; O2SAT 98
[2017-10-28] MEDS: Gabapentin 100 MG Capsule 200 MG PO (20:30)
[2017-10-28] MEDS: Atorvastatin Calcium 20 MG Tablet PO (20:31)
[2017-10-29] MEDS: Famotidine 20 MG Tablet PO ×2 (05:26→17:16)
[2017-10-29] MEDS: amLODIPine 5 MG Tablet PO (05:26)
[2017-10-29] MEDS: Menthol/Lanolin/Calamine/Znox 113 GM Tube 1 APPLIC TOPICAL ×3 (05:26→20:40)
[2017-10-29] MEDS: Cefdinir 300 MG Capsule PO ×2 (05:27→17:16)
[2017-10-29] MEDS: Aspirin 81 MG TAB.CHEW PO (05:27)
[2017-10-29] MEDS: Carvedilol 25 MG Tablet PO ×2 (05:27→17:16)
[2017-10-29] MEDS: Furosemide 40 MG Tablet PO ×2 (05:27→17:16)
[2017-10-29] MEDS: Magnesium Oxide 400 MG Tablet PO (05:27)
[2017-10-29] MEDS: Iron Polysaccharide Complex 150 MG CAPSULE PO (05:28)
[2017-10-29 06:09] LABS: International Normalized Ratio 1.2; Prothrombin Time (Protime)PT. 15.6 SECONDS (11.7-14.9)
[2017-10-29] MEDS: metroNIDAZOLE 500 MG Tablet PO ×3 (08:26→17:16)
[2017-10-29] MEDS: Ipratropium/Albuterol Sulfate 3 ML AMPUL.NEB INHALATION ×3 (10:20→18:50)
[2017-10-29 11:51] VITALS: PULSE 92; RESP 20; O2SAT 93
[2017-10-29] MEDS: Gabapentin 100 MG Capsule PO (12:12)
[2017-10-29 14:20] VITALS: RESP 19
[2017-10-29 15:37] VITALS: BP 125/57; PULSE 94; RESP 18; TEMP 36.2; O2SAT 98
--- NOTE | 2017-10-29 15:48 | MDS.RN ---
Pain interview for jose g 10/30/17 completed.
[2017-10-29 18:50] VITALS: PULSE 100; RESP 16
[2017-10-29 20:29] VITALS: PULSE 74; RESP 20; O2SAT 98
[2017-10-29] MEDS: Atorvastatin Calcium 20 MG Tablet PO (20:42)
[2017-10-29] MEDS: Gabapentin 100 MG Capsule 200 MG PO (20:42)
[2017-10-30] VITALS (7 sets, daily range): BP systolic 119–133; BP diastolic 69–85; PULSE 70–92; RESP 18–21; TEMP 36.7; O2SAT 96–98
[2017-10-30] MEDS: Aspirin 81 MG TAB.CHEW PO (05:45)
[2017-10-30] MEDS: Menthol/Lanolin/Calamine/Znox 113 GM Tube 1 APPLIC TOPICAL ×3 (05:45→21:41)
[2017-10-30] MEDS: Carvedilol 25 MG Tablet PO ×2 (05:46→17:34)
[2017-10-30] MEDS: Iron Polysaccharide Complex 150 MG CAPSULE PO (05:47)
[2017-10-30] MEDS: Magnesium Oxide 400 MG Tablet PO (05:48)
[2017-10-30] MEDS: Furosemide 40 MG Tablet PO ×2 (05:48→17:35)
[2017-10-30] MEDS: amLODIPine 5 MG Tablet PO (05:48)
[2017-10-30] MEDS: Famotidine 20 MG Tablet PO ×2 (05:49→17:35)
[2017-10-30] MEDS: Cefdinir 300 MG Capsule PO ×2 (05:49→17:35)
[2017-10-30 06:10] LABS: International Normalized Ratio 1.2; Prothrombin Time (Protime)PT. 15.5 SECONDS (11.7-14.9)
[2017-10-30] MEDS: Ipratropium/Albuterol Sulfate 3 ML AMPUL.NEB INHALATION ×4 (06:42→20:14)
[2017-10-30] MEDS: metroNIDAZOLE 500 MG Tablet PO ×3 (08:14→17:34)
[2017-10-30] MEDS: Gabapentin 100 MG Capsule PO (13:13)
--- NOTE | 2017-10-30 17:20 | NURSING ---
Dr. Bach reviewed INR, NNO.
[2017-10-30] MEDS: Gabapentin 100 MG Capsule 200 MG PO (21:44)
[2017-10-30] MEDS: Atorvastatin Calcium 20 MG Tablet PO (21:44)
[2017-10-31] VITALS (8 sets, daily range): BP systolic 115–119; BP diastolic 59–75; PULSE 80–105; RESP 18–20; TEMP 36.8–36.9; O2SAT 94–99
[2017-10-31] MEDS: Aspirin 81 MG TAB.CHEW PO (05:08)
[2017-10-31] MEDS: Carvedilol 25 MG Tablet PO ×2 (05:09→17:53)
[2017-10-31] MEDS: Iron Polysaccharide Complex 150 MG CAPSULE PO (05:09)
[2017-10-31] MEDS: Menthol/Lanolin/Calamine/Znox 113 GM Tube 1 APPLIC TOPICAL ×3 (05:09→20:51)
[2017-10-31] MEDS: Magnesium Oxide 400 MG Tablet PO (05:11)
[2017-10-31] MEDS: Famotidine 20 MG Tablet PO ×2 (05:11→17:53)
[2017-10-31] MEDS: amLODIPine 5 MG Tablet PO (05:11)
[2017-10-31] MEDS: Cefdinir 300 MG Capsule PO ×2 (05:11→17:53)
[2017-10-31] MEDS: Furosemide 40 MG Tablet PO ×2 (05:11→17:53)
[2017-10-31] MEDS: Ipratropium/Albuterol Sulfate 3 ML AMPUL.NEB INHALATION ×4 (06:30→18:40)
[2017-10-31 07:19] LABS: International Normalized Ratio 1.3; Prothrombin Time (Protime)PT. 16.3 SECONDS (11.7-14.9)
[2017-10-31 07:22] LABS: Absolute Lymphocyte Count 1.39 X10^3/ul (0.83-4.51); Absolute Neutrophil Count 4.5 X10^3/uL (2.0-7.7); Basophil# 0.07 X10^3/uL; Basophil% 0.8 % (0-1); Eosinophil# 1.25 X10^3/uL; Eosinophils% 15.2 % (0-5); Hemoglobin 10.3 g/dl (12.0-15.0); Lymphocyte # 1.39 X10^3/ul (4.0); Lymphocyte % 16.8 % (19-41); Mean Corp Hgb Conc 30.3 g/gl (32-36); Mean Corpuscular Hgb 27.9 pg (27.0-32.0); Mean Corpuscular Volume 92.1 fL (81-99); Monocyte# 1.04 X10^3/uL; Monocyte% 12.6 % (0-10); Neutrophil # 4.48 X10^3/uL (2.7-7.7); Neutrophil % 54.4 % (47-70); POSITIVE COUNT NO; POSITIVE DIFFERENTIAL NO; POSITIVE MORPHOLOGY NO; Platelet Count 322 K/mm3 (150-450); RBC Distribution Width SD 53.3 fl (35.1-43.9); Red Blood Count 3.69 M/mm3 (4.2-5.4); White Blood Count 8.3 K/mm3 (4.4-11.0)
[2017-10-31 08:05] LABS: Anion Gap 6 (5-15); BUN 16 mg/dL (7-18); BUN/Creat Ratio 25.5 RATIO (10-20); Chloride 98 mmol/L (98-107); Creatinine, Serum 0.63 mg/dL (0.55-1.02); EST Glomerular Filtration Rate 97 mL/min (>60); Est Glom Filt Rate - Afr Amer 117 mL/min (>60); Estimated Creatinine Clearance 37.12 ml/min; Glucose 103 mg/dL (74-106); Potassium 4.7 mmol/L (3.5-5.1); Sodium Level 138 mmol/L (136-145)
[2017-10-31] MEDS: metroNIDAZOLE 500 MG Tablet PO ×3 (08:34→17:54)
[2017-10-31] MEDS: Gabapentin 100 MG Capsule PO (12:00)
[2017-10-31] MEDS: Warfarin 2.5 MG, Warfarin 2 MG 4.5 MG PO (17:54)
[2017-10-31] MEDS: Atorvastatin Calcium 20 MG Tablet PO (20:50)
[2017-10-31] MEDS: Gabapentin 100 MG Capsule 200 MG PO (20:50)
[2017-11-01] MEDS: Magnesium Oxide 400 MG Tablet PO (06:09)
[2017-11-01] MEDS: Aspirin 81 MG TAB.CHEW PO (06:09)
[2017-11-01] MEDS: Furosemide 40 MG Tablet PO ×2 (06:09→17:23)
[2017-11-01] MEDS: Carvedilol 25 MG Tablet PO ×2 (06:09→17:23)
[2017-11-01] MEDS: Iron Polysaccharide Complex 150 MG CAPSULE PO (06:09)
[2017-11-01] MEDS: Famotidine 20 MG Tablet PO ×2 (06:10→17:23)
[2017-11-01] MEDS: Menthol/Lanolin/Calamine/Znox 113 GM Tube 1 APPLIC TOPICAL ×3 (06:10→21:45)
[2017-11-01] MEDS: amLODIPine 5 MG Tablet PO (06:10)
[2017-11-01] MEDS: Cefdinir 300 MG Capsule PO ×2 (06:10→17:23)
[2017-11-01 06:46] LABS: International Normalized Ratio 1.4; Prothrombin Time (Protime)PT. 16.9 SECONDS (11.7-14.9)
[2017-11-01 07:35] VITALS: PULSE 99; RESP 21; O2SAT 97
[2017-11-01] MEDS: Ipratropium/Albuterol Sulfate 3 ML AMPUL.NEB INHALATION ×4 (07:35→19:50)
[2017-11-01] MEDS: metroNIDAZOLE 500 MG Tablet PO ×3 (08:18→17:23)
--- NOTE | 2017-11-01 08:32 | NURSING ---
This nurse entered Pt room to assisted her off the bedside comode. this nurse noted that Pt was SOB. Pt Oxygen was 84% on 3l via NC. this nurse adjusted Pt oxygen to 5l via NC and after 5 minutes Pt oxygen saturiation improved to 95%. Pt assisted to chair call light within reach and no further complaints. Will continue to monitor. Bev ALEXANDER aware
[2017-11-01 10:08] VITALS: PULSE 85; RESP 20
[2017-11-01] MEDS: Gabapentin 100 MG Capsule PO (11:47)
[2017-11-01 14:39] VITALS: PULSE 88; RESP 23
[2017-11-01 16:00] VITALS: BP 120/65; PULSE 84; RESP 20; TEMP 36.7; O2SAT 95
[2017-11-01 19:50] VITALS: PULSE 87; RESP 20
[2017-11-01] MEDS: Atorvastatin Calcium 20 MG Tablet PO (21:44)
[2017-11-01] MEDS: Gabapentin 100 MG Capsule 200 MG PO (21:45)
[2017-11-01 21:48] VITALS: PULSE 86; O2SAT 96
[2017-11-02 05:21] VITALS: BP 138/71; PULSE 90
[2017-11-02] MEDS: Aspirin 81 MG TAB.CHEW PO (05:22)
[2017-11-02] MEDS: Menthol/Lanolin/Calamine/Znox 113 GM Tube 1 APPLIC TOPICAL ×3 (05:22→20:52)
[2017-11-02] MEDS: Iron Polysaccharide Complex 150 MG CAPSULE PO (05:23)
[2017-11-02] MEDS: Carvedilol 25 MG Tablet PO ×2 (05:23→17:35)
[2017-11-02] MEDS: Magnesium Oxide 400 MG Tablet PO (05:24)
[2017-11-02] MEDS: amLODIPine 5 MG Tablet PO (05:24)
[2017-11-02] MEDS: Furosemide 40 MG Tablet PO ×2 (05:24→17:35)
[2017-11-02] MEDS: Famotidine 20 MG Tablet PO ×2 (05:25→17:35)
[2017-11-02] MEDS: Cefdinir 300 MG Capsule PO ×2 (05:25→17:35)
[2017-11-02 06:18] LABS: International Normalized Ratio 1.5; Prothrombin Time (Protime)PT. 18.5 SECONDS (11.7-14.9)
[2017-11-02 06:46] VITALS: PULSE 88; RESP 18; O2SAT 98
[2017-11-02] MEDS: Ipratropium/Albuterol Sulfate 3 ML AMPUL.NEB INHALATION ×3 (06:46→18:50)
[2017-11-02] MEDS: metroNIDAZOLE 500 MG Tablet PO ×3 (09:15→17:34)
--- NOTE | 2017-11-02 12:19 | NURSING ---
pt had appointment this morning at 1000- has not returned at this time.
[2017-11-02] MEDS: Gabapentin 100 MG Capsule PO (13:35)
--- NOTE | 2017-11-02 14:18 | NURSING ---
Patient returned from appointment with Dr. Parr. Continue with PT/OT, WBAT to left hip. Continue to follow Dr. Mcpherson's recommendations for antibiotic therapy. F/U with weekend receptionist and battery recharger. F/U with Dr. Parr in 6 weeks. Continue with tylenol for pain control.
[2017-11-02 15:31] VITALS: PULSE 93; RESP 18
[2017-11-02 15:37] VITALS: BP 142/78; PULSE 96; RESP 16; TEMP 36.9; O2SAT 98
[2017-11-02 18:50] VITALS: PULSE 101; RESP 20
[2017-11-02] MEDS: Atorvastatin Calcium 20 MG Tablet PO (20:53)
[2017-11-02] MEDS: Gabapentin 100 MG Capsule 200 MG PO (20:53)
[2017-11-02 21:12] VITALS: PULSE 88; RESP 20; O2SAT 94
[2017-11-03] MEDS: Carvedilol 25 MG Tablet PO ×2 (05:08→16:56)
[2017-11-03] MEDS: Aspirin 81 MG TAB.CHEW PO (05:08)
[2017-11-03] MEDS: Menthol/Lanolin/Calamine/Znox 113 GM Tube 1 APPLIC TOPICAL ×3 (05:08→20:09)
[2017-11-03] MEDS: Furosemide 40 MG Tablet PO ×2 (05:09→16:56)
[2017-11-03] MEDS: Iron Polysaccharide Complex 150 MG CAPSULE PO (05:09)
[2017-11-03] MEDS: Famotidine 20 MG Tablet PO ×2 (05:10→16:57)
[2017-11-03] MEDS: amLODIPine 5 MG Tablet PO (05:10)
[2017-11-03] MEDS: Cefdinir 300 MG Capsule PO ×2 (05:10→16:57)
[2017-11-03] MEDS: Magnesium Oxide 400 MG Tablet PO (05:10)
[2017-11-03 06:30] VITALS: PULSE 88; RESP 16; O2SAT 99
[2017-11-03] MEDS: Ipratropium/Albuterol Sulfate 3 ML AMPUL.NEB INHALATION ×3 (06:30→19:22)
[2017-11-03] MEDS: metroNIDAZOLE 500 MG Tablet PO ×3 (09:20→16:56)
[2017-11-03 11:05] VITALS: PULSE 85; RESP 16
[2017-11-03] MEDS: Gabapentin 100 MG Capsule PO (12:22)
[2017-11-03 15:15] VITALS: PULSE 82; RESP 16
[2017-11-03 16:00] VITALS: BP 137/73; PULSE 86; RESP 18; TEMP 36.4; O2SAT 95
--- NOTE | 2017-11-03 16:56 | PN.ID_ITS ---
Subjective: Feeling good, no issues with hip. Breathing better, no fever. - Physical Exam General: Alert, Cooperative, No apparent distress Lungs: Rales Cardiovascular: Regular rate, Regular Rhythm Abdomen: Soft, Non Tender, Non-Distended Skin: No rashes Vital Signs Temp Pulse Resp BP Pulse Ox 97.5 F L 86 18 137/73 H 95 11/03/17 16:00 11/03/17 16:00 11/03/17 16:00 11/03/17 16:00 11/03/17 16:00 Oxygen Flow Rate (L/min) 4 Oxygen Delivery Method Nasal Cannula Weight: 63.219 kg Body Mass Index (BMI) 37.5 Finger Stick Blood Glucose 156 Intake and Output for Last 24 Hours 11/01/17 11/02/17 11/03/17 23:59 23:59 23:59 Intake Total 480 / 480 240 / 240 180 / 180 Balance 480 / 480 240 / 240 180 / 180 Medical Necessity - Tobacco Use Smoking Status: Smoker, status unknown Route of nutrition/ use of supplements: [] Nutritional Intake: [] IV Site: [] Yang Catheter: [] - Assessment/Plan Antibiotics: [] Assessment/Plan: [] Superficial surgical site infection s/p L total hip replacement 07/21/17 - now s/ p debridement 09/[address] Parr with cxs (+) for bacteroides. CT showed small fluid collection near surgical site. Had some increased SOB and cxr changes. Now improving on omnicef and flagyl. Plan on stopping soon. Will follow.
[2017-11-03 19:22] VITALS: PULSE 91; RESP 20
[2017-11-03] MEDS: Gabapentin 100 MG Capsule 200 MG PO (20:10)
[2017-11-03] MEDS: Atorvastatin Calcium 20 MG Tablet PO (20:10)
[2017-11-04] MEDS: Menthol/Lanolin/Calamine/Znox 113 GM Tube 1 APPLIC TOPICAL ×3 (05:30→23:58)
[2017-11-04] MEDS: Aspirin 81 MG TAB.CHEW PO (05:31)
[2017-11-04] MEDS: Carvedilol 25 MG Tablet PO ×2 (05:31→17:49)
[2017-11-04] MEDS: Iron Polysaccharide Complex 150 MG CAPSULE PO (05:31)
[2017-11-04] MEDS: Magnesium Oxide 400 MG Tablet PO (05:32)
[2017-11-04] MEDS: Furosemide 40 MG Tablet PO ×2 (05:32→17:49)
[2017-11-04] MEDS: amLODIPine 5 MG Tablet PO (05:32)
[2017-11-04] MEDS: Famotidine 20 MG Tablet PO ×2 (05:33→17:50)
[2017-11-04] MEDS: Cefdinir 300 MG Capsule PO ×2 (05:33→17:48)
[2017-11-04] MEDS: Ipratropium/Albuterol Sulfate 3 ML AMPUL.NEB INHALATION (06:33)
[2017-11-04 06:34] VITALS: PULSE 74; RESP 18; O2SAT 99
[2017-11-04] MEDS: metroNIDAZOLE 500 MG Tablet PO ×3 (08:23→17:49)
[2017-11-04 10:00] VITALS: PULSE 98; RESP 20; O2SAT 96
[2017-11-04] MEDS: Gabapentin 100 MG Capsule PO (11:30)
[2017-11-04 15:25] VITALS: BP 100/59; PULSE 73; RESP 20; TEMP 36.4; O2SAT 95
[2017-11-04] MEDS: Atorvastatin Calcium 20 MG Tablet PO (21:58)
[2017-11-04] MEDS: Gabapentin 100 MG Capsule 200 MG PO (22:00)
[2017-11-05] MEDS: Famotidine 20 MG Tablet PO ×2 (05:16→17:13)
[2017-11-05] MEDS: Aspirin 81 MG TAB.CHEW PO (05:16)
[2017-11-05] MEDS: Magnesium Oxide 400 MG Tablet PO (05:16)
[2017-11-05] MEDS: Furosemide 40 MG Tablet PO ×2 (05:16→17:13)
[2017-11-05] MEDS: Cefdinir 300 MG Capsule PO ×2 (05:17→17:13)
[2017-11-05] MEDS: amLODIPine 5 MG Tablet PO (05:17)
[2017-11-05] MEDS: Carvedilol 25 MG Tablet PO ×2 (05:17→17:13)
[2017-11-05] MEDS: Iron Polysaccharide Complex 150 MG CAPSULE PO (05:17)
[2017-11-05] MEDS: Menthol/Lanolin/Calamine/Znox 113 GM Tube 1 APPLIC TOPICAL ×3 (05:20→20:36)
[2017-11-05 06:19] LABS: International Normalized Ratio 2.2; Prothrombin Time (Protime)PT. 24.4 SECONDS (11.7-14.9)
[2017-11-05 07:04] VITALS: O2SAT 99
[2017-11-05] MEDS: metroNIDAZOLE 500 MG Tablet PO ×3 (08:24→17:12)
[2017-11-05 10:00] VITALS: PULSE 92; RESP 18; O2SAT 96
[2017-11-05] MEDS: Gabapentin 100 MG Capsule PO (11:02)
--- NOTE | 2017-11-05 15:49 | NURSING ---
pt returned from [facility] appt, no new orders.
[2017-11-05 16:00] VITALS: BP 148/47; PULSE 78; RESP 20; TEMP 36.1; O2SAT 99
[2017-11-05] MEDS: Atorvastatin Calcium 20 MG Tablet PO (20:35)
[2017-11-05] MEDS: Gabapentin 100 MG Capsule 200 MG PO (20:36)
[2017-11-06] MEDS: amLODIPine 5 MG Tablet PO (05:19)
[2017-11-06] MEDS: Cefdinir 300 MG Capsule PO ×2 (05:19→17:51)
[2017-11-06] MEDS: Furosemide 40 MG Tablet PO ×2 (05:19→17:51)
[2017-11-06] MEDS: Iron Polysaccharide Complex 150 MG CAPSULE PO (05:20)
[2017-11-06] MEDS: Carvedilol 25 MG Tablet PO ×2 (05:20→17:51)
[2017-11-06] MEDS: Aspirin 81 MG TAB.CHEW PO (05:20)
[2017-11-06] MEDS: Magnesium Oxide 400 MG Tablet PO (05:20)
[2017-11-06] MEDS: Menthol/Lanolin/Calamine/Znox 113 GM Tube 1 APPLIC TOPICAL ×3 (05:22→20:04)
[2017-11-06] MEDS: Famotidine 20 MG Tablet PO ×2 (05:23→17:51)
[2017-11-06 06:57] VITALS: O2SAT 99
[2017-11-06] MEDS: metroNIDAZOLE 500 MG Tablet PO ×3 (08:46→17:51)
[2017-11-06] MEDS: Gabapentin 100 MG Capsule PO (13:09)
[2017-11-06 15:29] VITALS: BP 114/66; PULSE 78; RESP 20; TEMP 37.1; O2SAT 100
[2017-11-06 19:55] VITALS: RESP 18
[2017-11-06] MEDS: Gabapentin 100 MG Capsule 200 MG PO (20:03)
[2017-11-06] MEDS: Atorvastatin Calcium 20 MG Tablet PO (20:03)
[2017-11-07 05:11] VITALS: BP 119/73; PULSE 84
[2017-11-07] MEDS: amLODIPine 5 MG Tablet PO (05:13)
[2017-11-07] MEDS: Magnesium Oxide 400 MG Tablet PO (05:13)
[2017-11-07] MEDS: Famotidine 20 MG Tablet PO ×2 (05:13→16:08)
[2017-11-07] MEDS: Furosemide 40 MG Tablet PO ×2 (05:13→16:09)
[2017-11-07] MEDS: Cefdinir 300 MG Capsule PO ×2 (05:13→16:08)
[2017-11-07] MEDS: Iron Polysaccharide Complex 150 MG CAPSULE PO (05:13)
[2017-11-07] MEDS: Carvedilol 25 MG Tablet PO ×2 (05:13→16:08)
[2017-11-07] MEDS: Aspirin 81 MG TAB.CHEW PO (05:13)
[2017-11-07] MEDS: Menthol/Lanolin/Calamine/Znox 113 GM Tube 1 APPLIC TOPICAL ×3 (05:14→20:39)
[2017-11-07 08:17] LABS: Absolute Neutrophil Count 3.9 X10^3/uL (2.0-7.7); Basophil# 0.06 X10^3/uL; Basophil% 0.9 % (0-1); Eosinophil# 0.91 X10^3/uL; Eosinophils% 13.9 % (0-5); Hematocrit 35.2 % (37-47); Hemoglobin 10.8 g/dl (12.0-15.0); Lymphocyte % 13.8 % (19-41); Mean Corp Hgb Conc 30.7 g/gl (32-36); Mean Corpuscular Volume 94.4 fL (81-99); Monocyte% 12.3 % (0-10); Neutrophil # 3.85 X10^3/uL (2.7-7.7); Neutrophil % 58.9 % (47-70); Platelet Count 206 K/mm3 (150-450); RBC Distribution Width CV 16.5 % (11.6-14.6); RBC Distribution Width SD 54.6 fl (35.1-43.9); Red Blood Count 3.73 M/mm3 (4.2-5.4); White Blood Count 6.5 K/mm3 (4.4-11.0)
[2017-11-07 08:19] LABS: POSITIVE COUNT NO; POSITIVE DIFFERENTIAL NO; POSITIVE MORPHOLOGY NO
[2017-11-07 08:28] LABS: Anion Gap 7 (5-15); BUN 11 mg/dL (7-18); BUN/Creat Ratio 18.5 RATIO (10-20); Calcium,Total 8.8 mg/dL (8.5-10.1); Chloride 100 mmol/L (98-107); Creatinine, Serum 0.59 mg/dL (0.55-1.02); EST Glomerular Filtration Rate 103 mL/min (>60); Est Glom Filt Rate - Afr Amer 125 mL/min (>60); Estimated Creatinine Clearance 37.12 ml/min; Glucose 110 mg/dL (74-106); Potassium 4.1 mmol/L (3.5-5.1); Sodium Level 139 mmol/L (136-145)
[2017-11-07] MEDS: metroNIDAZOLE 500 MG Tablet PO ×3 (08:33→16:09)
[2017-11-07 11:47] VITALS: O2SAT 99
[2017-11-07] MEDS: Gabapentin 100 MG Capsule PO (12:17)
[2017-11-07 15:10] VITALS: BP 119/65; PULSE 98; RESP 20; TEMP 36.5; O2SAT 98
[2017-11-07] MEDS: Atorvastatin Calcium 20 MG Tablet PO (20:41)
[2017-11-07] MEDS: Gabapentin 100 MG Capsule 200 MG PO (20:42)
[2017-11-07 20:48] VITALS: PULSE 79; RESP 18; O2SAT 99
[2017-11-08] MEDS: Aspirin 81 MG TAB.CHEW PO (05:01)
[2017-11-08] MEDS: Furosemide 40 MG Tablet PO ×2 (05:01→17:53)
[2017-11-08] MEDS: Carvedilol 25 MG Tablet PO ×2 (05:01→17:53)
[2017-11-08] MEDS: Famotidine 20 MG Tablet PO ×2 (05:02→17:53)
[2017-11-08] MEDS: Cefdinir 300 MG Capsule PO ×2 (05:02→17:53)
[2017-11-08] MEDS: Iron Polysaccharide Complex 150 MG CAPSULE PO (05:02)
[2017-11-08] MEDS: amLODIPine 5 MG Tablet PO (05:02)
[2017-11-08] MEDS: Magnesium Oxide 400 MG Tablet PO (05:04)
[2017-11-08] MEDS: Menthol/Lanolin/Calamine/Znox 113 GM Tube 1 APPLIC TOPICAL ×3 (05:05→20:47)
[2017-11-08 07:50] VITALS: O2SAT 99
[2017-11-08] MEDS: metroNIDAZOLE 500 MG Tablet PO ×3 (08:35→17:53)
[2017-11-08 10:00] VITALS: PULSE 92; RESP 18; O2SAT 94
[2017-11-08] MEDS: Gabapentin 100 MG Capsule PO (12:25)
[2017-11-08 16:00] VITALS: BP 153/64; PULSE 62; RESP 20; TEMP 36.1; O2SAT 97
[2017-11-08] MEDS: Gabapentin 100 MG Capsule 200 MG PO (20:46)
[2017-11-08] MEDS: Atorvastatin Calcium 20 MG Tablet PO (20:47)
[2017-11-09] MEDS: Iron Polysaccharide Complex 150 MG CAPSULE PO (05:34)
[2017-11-09] MEDS: Cefdinir 300 MG Capsule PO (05:35)
[2017-11-09] MEDS: Furosemide 40 MG Tablet PO ×2 (05:35→17:17)
[2017-11-09] MEDS: amLODIPine 5 MG Tablet PO (05:35)
[2017-11-09] MEDS: Famotidine 20 MG Tablet PO ×2 (05:35→17:18)
[2017-11-09] MEDS: Aspirin 81 MG TAB.CHEW PO (05:36)
[2017-11-09] MEDS: Carvedilol 25 MG Tablet PO ×2 (05:36→17:18)
[2017-11-09] MEDS: Menthol/Lanolin/Calamine/Znox 113 GM Tube 1 APPLIC TOPICAL ×3 (05:36→20:10)
[2017-11-09] MEDS: Magnesium Oxide 400 MG Tablet PO (05:40)
[2017-11-09 05:57] LABS: International Normalized Ratio 3.4; Prothrombin Time (Protime)PT. 34.7 SECONDS (11.7-14.9)
[2017-11-09] MEDS: metroNIDAZOLE 500 MG Tablet PO (08:04)
--- NOTE | 2017-11-09 11:25 | PN.ID_ITS ---
Subjective: Feeling good, no fever, no trouble breathing, no issues with hip. - Physical Exam General: Alert, Cooperative Lungs: Rales - scattered Cardiovascular: Regular rate, Regular Rhythm Abdomen: Soft, Non Tender, Non-Distended Skin: Incision - L hip well healed, no redness or drainage Vital Signs Temp Pulse Resp BP Pulse Ox 97.0 F L 62 20 H 153/64 H 97 11/08/17 16:00 11/08/17 16:00 11/08/17 16:00 11/08/17 16:00 11/08/17 16:00 Oxygen Flow Rate (L/min) 3 Oxygen Delivery Method Nasal Cannula Weight: 63.219 kg Body Mass Index (BMI) 37.5 Finger Stick Blood Glucose 156 Intake and Output for Last 24 Hours 11/07/17 11/08/17 11/09/17 23:59 23:59 23:59 Intake Total 720 / 720 360 / 360 120 / 120 Output Total 300 / 300 Balance 720 / 720 360 / 360 -180 / -180 Laboratory Tests Past 24 Hrs 11/09/17 05:10 PT 34.7 H INR 3.4 Medical Necessity - Tobacco Use Smoking Status: Smoker, status unknown Route of nutrition/ use of supplements: [] Nutritional Intake: [] IV Site: [] Yang Catheter: [] - Assessment/Plan Antibiotics: [] Assessment/Plan: [] Superficial surgical site infection s/p L total hip replacement 07/21/17 - now s/ p debridement 09/[address] Parr with cxs (+) for bacteroides. CT showed small fluid collection near surgical site. Had some increased SOB and cxr changes. Now improving on omnicef and flagyl. Will stop today. Will follow.
[2017-11-09] MEDS: Gabapentin 100 MG Capsule PO (12:08)
[2017-11-09 16:00] VITALS: BP 98/52; PULSE 86; RESP 18; TEMP 36.2; O2SAT 99
[2017-11-09] MEDS: Atorvastatin Calcium 20 MG Tablet PO (20:12)
[2017-11-09] MEDS: Ondansetron ODT 4 MG Tablet PO (20:12)
[2017-11-09] MEDS: Gabapentin 100 MG Capsule 200 MG PO (20:13)
--- NOTE | 2017-11-09 20:18 | NURSING ---
Pt c/o feeling nauseated, given PRN zofran Odt 4mg per orders. RN aware, continuing to monitor.
--- NOTE | 2017-11-09 20:56 | PCM.TCUNOT ---
Subjective: Resident seen in bed, she has no complaints, no pain, no reports from nursing staff. Vitals/I&O's: Vital Signs Temp Pulse Resp BP Pulse Ox 97.2 F L 86 18 98/52 L 99 11/09/17 16:00 11/09/17 16:00 11/09/17 16:00 11/09/17 16:00 11/09/17 16:00 Oxygen Flow Rate (L/min) 4 Oxygen Delivery Method Nasal Cannula Weight: 63.219 kg Body Mass Index (BMI) 37.5 Finger Stick Blood Glucose 156 Intake and Output for Last 24 Hours 11/07/17 11/08/17 11/09/17 23:59 23:59 23:59 Intake Total 720 / 720 360 / 360 380 / 380 Output Total 300 / 300 Balance 720 / 720 360 / 360 80 / 80 Laboratory Results 11/09/17 05:10: PT 34.7 H, INR 3.4 Past Medical History Past Medical History (Chronic Problems): Chronic Problems (Last Reviewed 11/05/17 @ 15:22 by Salvador Bella MD) Cardiomyopathy (Chronic) Ischemic cardiomyopathy (Chronic) Paroxysmal atrial fibrillation (Chronic) 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) Hyperthyroidism (Chronic) Hypokalemia (Chronic) Atherosclerotic heart disease of [place] coronary artery without angina pectoris (Chronic) CABG x1 RANDLE-LAD x/Aortic Valve Replacement Left bundle-branch block (Chronic) Nonrheumatic aortic valve stenosis (Chronic) HTN (hypertension) (Chronic) Other chest pain (Chronic) Presence of aortocoronary bypass graft (Chronic) Dyspnea on exertion (Chronic) Fatigue (Chronic) Chronic pulmonary heart disease (Chronic) CVA (cerebral infarction) (Chronic) Hyperlipidemia (Chronic) Paroxysmal ventricular tachycardia (Chronic) HTN (hypertension) (Chronic) Hypothyroidism associated with surgical procedure (Chronic) had a subtotal thyroidectomy for goiter Hemorrhoids (Chronic) Restless leg syndrome (Chronic) TIA (transient ischemic attack) (Chronic) multiple History of aortic valve replacement with bioprosthetic valve (Chronic) Medical History: Medical History (Last Reviewed 11/05/17 @ 15:22 by Salvador Bella MD) Ischemic cardiomyopathy (Chronic) I25.5 Paroxysmal atrial fibrillation (Chronic) I48.0 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) Z95.810 Hyperthyroidism (Chronic) E05.90 Hypokalemia (Chronic) E87.6 Atherosclerotic heart disease of [place] coronary artery without angina pectoris (Chronic) I25.10 CABG x1 RANDLE-LAD x/Aortic Valve Replacement Left bundle-branch block (Chronic) I44.7 Nonrheumatic aortic valve stenosis (Chronic) I35.0 HTN (hypertension) (Chronic) I10 Other chest pain (Chronic) R07.89 Dyspnea on exertion (Chronic) R06.09 Fatigue (Chronic) R53.83 Chronic pulmonary heart disease (Chronic) I27.9 CVA (cerebral infarction) (Chronic) I63.9 Hyperlipidemia (Chronic) E78.5 Paroxysmal ventricular tachycardia (Chronic) I47.2 HTN (hypertension) (Chronic) I10 Neck swelling (Acute) R22.1 left supraclavicular fossa and left neck Hypothyroidism associated with surgical procedure (Chronic) E89.0 had a subtotal thyroidectomy for goiter Hemorrhoids (Chronic) K64.9 Restless leg syndrome (Chronic) TIA (transient ischemic attack) (Chronic) multiple History of aortic valve replacement with bioprosthetic valve (Chronic) Z95.4 Allergies adhesive Allergy (Verified 09/30/17 21:57) Unknown etodolac Allergy (Verified 09/30/17 21:57) Unknown magnesium Allergy (Verified 09/30/17 21:57) Unknown melatonin Allergy (Verified 09/30/17 21:57) Unknown nitroglycerin Allergy (Verified 09/30/17 21:57) Unknown oxycodone HCl [From Percocet] Allergy (Verified 09/30/17 21:57) Unknown phenobarbital Allergy (Verified 09/30/17 21:57) Unknown tolmetin sodium [From Tolectin] Allergy (Verified 09/30/17 21:57) Unknown venlafaxine Allergy (Verified 09/30/17 21:57) Unknown coenzyme Q10 Allergy (Uncoded 09/30/17 21:57) Unknown nitropatch Allergy (Uncoded 09/30/17 21:57) unknown Home Medications: Ambulatory Orders Medication Instructions Recorded Magnesium Oxide [Mag-Ox 400] 400 mg PO DAILY 09/17/15 Nitroglycerin [Nitrostat] 0.4 mg SUBLINGUAL Q5M PRN 09/20/15 coenzyme Q10 200 mg capsule 200 mg PO DAILY 05/05/17 gabapentin 100 mg capsule 200 mg PO BID 05/05/17 amlodipine 5 mg tablet 5 mg PO DAILY 06/23/17 atorvastatin 40 mg tablet 20 mg PO QHS tab 06/23/17 Carvedilol [Coreg (Beta Gene)] 25 mg PO BID 07/06/17 Cholecalciferol (Vitamin D3) 1,000 unit PO DAILY 07/06/17 [Vitamin D3] Albuterol Aerosols [Ventolin 2.5 mg INHALATION Q4H PRN PRN 09/30/17 Aerosols] Famotidine [Pepcid] 20 mg PO BID 09/30/17 Omeprazole [Prilosec] 20 mg PO DAILY 09/30/17 Potassium Chloride [K-Dur] 20 meq PO DAILY 09/30/17 0.9% Saline Lock 5 - 30 ml IV UD PRN syringe 10/11/17 Acetaminophen [Tylenol Suppository] 650 mg RECTAL Q6H PRN PRN suppos. 10/11/17 Acetaminophen [Tylenol Tablet] 650 mg PO Q4H PRN PRN tablet 10/11/17 Amoxicillin/Potassium Clav 1 each PO BID 10/11/17 [Augmentin 875-125 Tablet] Aspirin E.C. [Ecotrin] 81 mg PO DAILY 10/11/17 Enoxaparin [Lovenox] 80 mg SC Q12@0600,1800 10/11/17 Ensure Clear 120 ml PO 4X/DAY 10/11/17 Furosemide [Lasix] 40 mg PO BID@1000,1800 10/11/17 Piperacil/Tazobactam [Zosyn] 3.375 gm IV Q8 10/11/17 Warfarin [Coumadin] 5 mg PO DAILY@1700 10/11/17 metronidazole 500 mg tablet 500 mg PO TID 11/05/17 ondansetron HCl 4 mg tablet 4 mg PO TID-QID PRN 11/05/17 Surgical History: Surgical History (Last Reviewed 11/05/17 @ 15:22 by Salvador Bella MD) History of hip replacement (Resolved) Z96.649 Presence of aortocoronary bypass graft (Chronic) Z95.1 H/O aortic valve replacement Z95.2 21 mm Magna Ease Pericardial Valve H/O right and left heart catheterization Onset Date: 09/24/15 Z98.890 History of hysterectomy Z98.890, Z90.710 History of left heart catheterization (LHC) Z98.890 2000, 2006, 2009, 2013. History of total right knee replacement (TKR) Z96.651 Hx of CABG Z95.1 CABG x1 RANDLE-LAD x/Aortic Valve Replacement Hx of cholecystectomy Z98.890, Z90.49 aortaplasty with pericardial patch closure Onset Date: 10/26/15 at Surgical History: appendectomy, cholecystectomy, coronary bypass surgery, hysterectomy - She still has ovaries and fallopian tubes. 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 History: dysfunctional uterine bld Smoking Status: Smoker, status unknown - *Family History Maternal Family History: Family History (Last Reviewed 11/05/17 @ 15:22 by Salvador Bella MD) Father Myocardial infarction, Onset Age: 45 Hypertension Heart disease Mother Myocardial infarction, Onset Age: 64 CAD (coronary artery disease) Hypertension Brother Myocardial infarction, Onset Age: 59 Heart disease CAD (coronary artery disease) CVA (cerebral vascular accident) Hypertension Sister CAD (coronary artery disease) Hypertension Daughter Diabetes HLD (hyperlipidemia) Son Hypertension HLD (hyperlipidemia) CAD (coronary artery disease) History Items: Heart Disease, Hypertension Paternal Family History: Family History (Last Reviewed 11/05/17 @ 15:22 by Salvador Bella MD) Father Myocardial infarction, Onset Age: 45 Hypertension Heart disease Mother Myocardial infarction, Onset Age: 64 CAD (coronary artery disease) Hypertension Brother Myocardial infarction, Onset Age: 59 Heart disease CAD (coronary artery disease) CVA (cerebral vascular accident) Hypertension Sister CAD (coronary artery disease) Hypertension Daughter Diabetes HLD (hyperlipidemia) Son Hypertension HLD (hyperlipidemia) CAD (coronary artery disease) History Items: High Cholesterol, Heart Disease Review of Systems Constitutional: Denies: Chills, Fever, Weight Change HEENT: Denies: Head Aches, Sinus Congestion, Sinus Drainage Cardiovascular: Denies: Chest Pain, Palpitations Respiratory: Denies: Cough, Shortness of breath at rest, Sputum production Gastrointestinal: Denies: Abdominal Pain, Nausea, Vomiting Genitourinary: Denies: Dysuria Musculoskeletal: Denies: Joint Pain, Joint Tenderness Skin: Denies: Rash, Wounds Neurological: Denies: Numbness, Tingling, Focal weakness Psychiatric: Denies: Anxiety, Depression, Homicidal Ideations, Suicidal Ideations Hematologic/ Lymphatic: Denies: Easy Bruising, Easy Bleeding - Physical Exam General: Alert, Oriented x3, Cooperative HEENT: Atraumatic, PERRLA, EOMI, Normocephalic Neck: Supple, No JVD, Negative Carotid Bruits Lungs: Clear to auscultation, Normal air movement Cardiovascular: Regular rate, No murmurs Abdomen: Bowel Sounds Present, Soft, Non Tender Extremities: No edema, Capillary Refill Less than 3 Seconds Skin: No rashes, No breakdown Musculoskeletal: No Tenderness to Palpation of Joints or Extremities Neurological: Cranial nerves II-XII grossly intact Psych/Mental Status: Normal Affect, Appropriate Vital Signs Temp Pulse Resp BP Pulse Ox 97.2 F L 86 18 98/52 L 99 11/09/17 16:00 11/09/17 16:00 11/09/17 16:00 11/09/17 16:00 11/09/17 16:00 Oxygen Flow Rate (L/min) 4 Oxygen Delivery Method Nasal Cannula Weight: 63.219 kg Body Mass Index (BMI) 37.5 Finger Stick Blood Glucose 156 Intake and Output for Last 24 Hours 11/07/17 11/08/17 11/09/17 23:59 23:59 23:59 Intake Total 720 / 720 360 / 360 380 / 380 Output Total 300 / 300 Balance 720 / 720 360 / 360 80 / 80 Laboratory Tests Past 24 Hrs 11/09/17 05:10 PT 34.7 H INR 3.4 Assessment/Plan All Active Problems (Last Reviewed 11/05/17 @ 15:22 by Salvador Bella MD) History of hip replacement (Resolved) Surgical site infection (Resolved) multilobar HCAP (Acute) Acute respiratory failure with hypoxia (Acute) CHF (congestive heart failure) (Acute) Neck swelling (Acute) Accelerated hypertension (Resolved) Chest pain (Resolved) DVT of lower extremity (deep venous thrombosis) (Resolved) Nephrolithiasis (Resolved) 82 year old female with below past medical history hospitalized for acute respiratory failure, admitted to TCU for rehabilitation, strengthening. Debility - PT/OT. Bowel - Senokot 2 tablets BID. Shortness of breath - Albuterol 2.5MG Q2H PRN. Hypertension - Amlodipine 5MG daily, Coreg 25MG BID, Lasix 40MG BID. Coronary Artery Disease - Coreg 25MG BID, Aspirin 81MG daily, NTG 0.4MG Q5M PRN. Hyperlipidemia - Atorvastatin 20MG QHS. GERD - Famotidine 20MG BID. Edema - Lasix 40MG BID. Neuropathic pain - Gabapentin 100MG at noon, 200MG QHS. Iron deficiency anemia - Ferrex 150MG daily. Hypomagnesemia - Mag Oxide 400MG daily. Skin irritation - Calmoseptine TID. Nausea - Zofran 4MG Q6H PRN. Hypokalemia - K-dur 20MEQ TID. Atrial Fibrillation - Coreg 25MG BID, coumadin 4.5MG daily, INR 3.4, coumadin adjusted.
--- NOTE | 2017-11-09 21:02 | PN_ITS ---
Subjective: Resident seen in bed, she has no complaints, no pain, no reports from nursing staff. Vitals/I&O's: Vital Signs Temp Pulse Resp BP Pulse Ox 97.2 F L 86 18 98/52 L 99 11/09/17 16:00 11/09/17 16:00 11/09/17 16:00 11/09/17 16:00 11/09/17 16:00 Oxygen Flow Rate (L/min) 4 Oxygen Delivery Method Nasal Cannula Weight: 63.219 kg Body Mass Index (BMI) 37.5 Finger Stick Blood Glucose 156 Intake and Output for Last 24 Hours 11/07/17 11/08/17 11/09/17 23:59 23:59 23:59 Intake Total 720 / 720 360 / 360 380 / 380 Output Total 300 / 300 Balance 720 / 720 360 / 360 80 / 80 Laboratory Results 11/09/17 05:10: PT 34.7 H, INR 3.4 Past Medical History Past Medical History (Chronic Problems): Chronic Problems (Last Reviewed 11/05/17 @ 15:22 by Salvador Bella MD) Cardiomyopathy (Chronic) Ischemic cardiomyopathy (Chronic) Paroxysmal atrial fibrillation (Chronic) 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) Hyperthyroidism (Chronic) Hypokalemia (Chronic) Atherosclerotic heart disease of [place] coronary artery without angina pectoris (Chronic) CABG x1 RANDLE-LAD x/Aortic Valve Replacement Left bundle-branch block (Chronic) Nonrheumatic aortic valve stenosis (Chronic) HTN (hypertension) (Chronic) Other chest pain (Chronic) Presence of aortocoronary bypass graft (Chronic) Dyspnea on exertion (Chronic) Fatigue (Chronic) Chronic pulmonary heart disease (Chronic) CVA (cerebral infarction) (Chronic) Hyperlipidemia (Chronic) Paroxysmal ventricular tachycardia (Chronic) HTN (hypertension) (Chronic) Hypothyroidism associated with surgical procedure (Chronic) had a subtotal thyroidectomy for goiter Hemorrhoids (Chronic) Restless leg syndrome (Chronic) TIA (transient ischemic attack) (Chronic) multiple History of aortic valve replacement with bioprosthetic valve (Chronic) Medical History: Medical History (Last Reviewed 11/05/17 @ 15:22 by Salvador Bella MD) Ischemic cardiomyopathy (Chronic) I25.5 Paroxysmal atrial fibrillation (Chronic) I48.0 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) Z95.810 Hyperthyroidism (Chronic) E05.90 Hypokalemia (Chronic) E87.6 Atherosclerotic heart disease of [place] coronary artery without angina pectoris (Chronic) I25.10 CABG x1 RANDLE-LAD x/Aortic Valve Replacement Left bundle-branch block (Chronic) I44.7 Nonrheumatic aortic valve stenosis (Chronic) I35.0 HTN (hypertension) (Chronic) I10 Other chest pain (Chronic) R07.89 Dyspnea on exertion (Chronic) R06.09 Fatigue (Chronic) R53.83 Chronic pulmonary heart disease (Chronic) I27.9 CVA (cerebral infarction) (Chronic) I63.9 Hyperlipidemia (Chronic) E78.5 Paroxysmal ventricular tachycardia (Chronic) I47.2 HTN (hypertension) (Chronic) I10 Neck swelling (Acute) R22.1 left supraclavicular fossa and left neck Hypothyroidism associated with surgical procedure (Chronic) E89.0 had a subtotal thyroidectomy for goiter Hemorrhoids (Chronic) K64.9 Restless leg syndrome (Chronic) TIA (transient ischemic attack) (Chronic) multiple History of aortic valve replacement with bioprosthetic valve (Chronic) Z95.4 Allergies adhesive Allergy (Verified 09/30/17 21:57) Unknown etodolac Allergy (Verified 09/30/17 21:57) Unknown magnesium Allergy (Verified 09/30/17 21:57) Unknown melatonin Allergy (Verified 09/30/17 21:57) Unknown nitroglycerin Allergy (Verified 09/30/17 21:57) Unknown oxycodone HCl [From Percocet] Allergy (Verified 09/30/17 21:57) Unknown phenobarbital Allergy (Verified 09/30/17 21:57) Unknown tolmetin sodium [From Tolectin] Allergy (Verified 09/30/17 21:57) Unknown venlafaxine Allergy (Verified 09/30/17 21:57) Unknown coenzyme Q10 Allergy (Uncoded 09/30/17 21:57) Unknown nitropatch Allergy (Uncoded 09/30/17 21:57) unknown Home Medications: Ambulatory Orders Medication Instructions Recorded Magnesium Oxide [Mag-Ox 400] 400 mg PO DAILY 09/17/15 Nitroglycerin [Nitrostat] 0.4 mg SUBLINGUAL Q5M PRN 09/20/15 coenzyme Q10 200 mg capsule 200 mg PO DAILY 05/05/17 gabapentin 100 mg capsule 200 mg PO BID 05/05/17 amlodipine 5 mg tablet 5 mg PO DAILY 06/23/17 atorvastatin 40 mg tablet 20 mg PO QHS tab 06/23/17 Carvedilol [Coreg (Beta [place])] 25 mg PO BID 07/06/17 Cholecalciferol (Vitamin D3) 1,000 unit PO DAILY 07/06/17 [Vitamin D3] Albuterol Aerosols [Ventolin 2.5 mg INHALATION Q4H PRN PRN 09/30/17 Aerosols] Famotidine [Pepcid] 20 mg PO BID 09/30/17 Omeprazole [Prilosec] 20 mg PO DAILY 09/30/17 Potassium Chloride [K-Dur] 20 meq PO DAILY 09/30/17 0.9% Saline Lock 5 - 30 ml IV UD PRN syringe 10/11/17 Acetaminophen [Tylenol Suppository] 650 mg RECTAL Q6H PRN PRN suppos. 10/11/17 Acetaminophen [Tylenol Tablet] 650 mg PO Q4H PRN PRN tablet 10/11/17 Amoxicillin/Potassium Clav 1 each PO BID 10/11/17 [Augmentin 875-125 Tablet] Aspirin E.C. [Ecotrin] 81 mg PO DAILY 10/11/17 Enoxaparin [Lovenox] 80 mg SC Q12@0600,1800 10/11/17 Ensure Clear 120 ml PO 4X/DAY 10/11/17 Furosemide [Lasix] 40 mg PO BID@1000,1800 10/11/17 Piperacil/Tazobactam [Zosyn] 3.375 gm IV Q8 10/11/17 Warfarin [Coumadin] 5 mg PO DAILY@1700 10/11/17 metronidazole 500 mg tablet 500 mg PO TID 11/05/17 ondansetron HCl 4 mg tablet 4 mg PO TID-QID PRN 11/05/17 Surgical History: Surgical History (Last Reviewed 11/05/17 @ 15:22 by Salvador Bella MD) History of hip replacement (Resolved) Z96.649 Presence of aortocoronary bypass graft (Chronic) Z95.1 H/O aortic valve replacement Z95.2 21 mm Magna Ease Pericardial Valve H/O right and left heart catheterization Onset Date: 09/24/15 Z98.890 History of hysterectomy Z98.890, Z90.710 History of left heart catheterization (LHC) Z98.890 2000, 2006, 2009, 2013. History of total right knee replacement (TKR) Z96.651 Hx of CABG Z95.1 CABG x1 RANDLE-LAD x/Aortic Valve Replacement Hx of cholecystectomy Z98.890, Z90.49 aortaplasty with pericardial patch closure Onset Date: 10/26/15 at Surgical History: appendectomy, cholecystectomy, coronary bypass surgery, hysterectomy - She still has ovaries and fallopian tubes. 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 History: dysfunctional uterine bld Smoking Status: Smoker, status unknown - *Family History Maternal Family History: Family History (Last Reviewed 11/05/17 @ 15:22 by Salvador Bella MD) Father Myocardial infarction, Onset Age: 45 Hypertension Heart disease Mother Myocardial infarction, Onset Age: 64 CAD (coronary artery disease) Hypertension Brother Myocardial infarction, Onset Age: 59 Heart disease CAD (coronary artery disease) CVA (cerebral vascular accident) Hypertension Sister CAD (coronary artery disease) Hypertension Daughter Diabetes HLD (hyperlipidemia) Son Hypertension HLD (hyperlipidemia) CAD (coronary artery disease) History Items: Heart Disease, Hypertension Paternal Family History: Family History (Last Reviewed 11/05/17 @ 15:22 by Salvador Bella MD) Father Myocardial infarction, Onset Age: 45 Hypertension Heart disease Mother Myocardial infarction, Onset Age: 64 CAD (coronary artery disease) Hypertension Brother Myocardial infarction, Onset Age: 59 Heart disease CAD (coronary artery disease) CVA (cerebral vascular accident) Hypertension Sister CAD (coronary artery disease) Hypertension Daughter Diabetes HLD (hyperlipidemia) Son Hypertension HLD (hyperlipidemia) CAD (coronary artery disease) History Items: High Cholesterol, Heart Disease Review of Systems Constitutional: Denies: Chills, Fever, Weight Change HEENT: Denies: Head Aches, Sinus Congestion, Sinus Drainage Cardiovascular: Denies: Chest Pain, Palpitations Respiratory: Denies: Cough, Shortness of breath at rest, Sputum production Gastrointestinal: Denies: Abdominal Pain, Nausea, Vomiting Genitourinary: Denies: Dysuria Musculoskeletal: Denies: Joint Pain, Joint Tenderness Skin: Denies: Rash, Wounds Neurological: Denies: Numbness, Tingling, Focal weakness Psychiatric: Denies: Anxiety, Depression, Homicidal Ideations, Suicidal Ideations Hematologic/ Lymphatic: Denies: Easy Bruising, Easy Bleeding - Physical Exam General: Alert, Oriented x3, Cooperative HEENT: Atraumatic, PERRLA, EOMI, Normocephalic Neck: Supple, No JVD, Negative Carotid Bruits Lungs: Clear to auscultation, Normal air movement Cardiovascular: Regular rate, No murmurs Abdomen: Bowel Sounds Present, Soft, Non Tender Extremities: No edema, Capillary Refill Less than 3 Seconds Skin: No rashes, No breakdown Musculoskeletal: No Tenderness to Palpation of Joints or Extremities Neurological: Cranial nerves II-XII grossly intact Psych/Mental Status: Normal Affect, Appropriate Vital Signs Temp Pulse Resp BP Pulse Ox 97.2 F L 86 18 98/52 L 99 11/09/17 16:00 11/09/17 16:00 11/09/17 16:00 11/09/17 16:00 11/09/17 16:00 Oxygen Flow Rate (L/min) 4 Oxygen Delivery Method Nasal Cannula Weight: 63.219 kg Body Mass Index (BMI) 37.5 Finger Stick Blood Glucose 156 Intake and Output for Last 24 Hours 11/07/17 11/08/17 11/09/17 23:59 23:59 23:59 Intake Total 720 / 720 360 / 360 380 / 380 Output Total 300 / 300 Balance 720 / 720 360 / 360 80 / 80 Laboratory Tests Past 24 Hrs 11/09/17 05:10 PT 34.7 H INR 3.4 Assessment/Plan All Active Problems (Last Reviewed 11/05/17 @ 15:22 by Salvador Bella MD) History of hip replacement (Resolved) Surgical site infection (Resolved) multilobar HCAP (Acute) Acute respiratory failure with hypoxia (Acute) CHF (congestive heart failure) (Acute) Neck swelling (Acute) Accelerated hypertension (Resolved) Chest pain (Resolved) DVT of lower extremity (deep venous thrombosis) (Resolved) Nephrolithiasis (Resolved) 82 year old female with below past medical history hospitalized for acute respiratory failure, admitted to TCU for rehabilitation, strengthening. * Debility - PT/OT. * Bowel - Senokot 2 tablets BID. * Shortness of breath - Albuterol 2.5MG Q2H PRN. * Hypertension - Amlodipine 5MG daily, Coreg 25MG BID, Lasix 40MG BID. * Coronary Artery Disease - Coreg 25MG BID, Aspirin 81MG daily, NTG 0.4MG Q5M PRN. * Hyperlipidemia - Atorvastatin 20MG QHS. * GERD - Famotidine 20MG BID. * Edema - Lasix 40MG BID. * Neuropathic pain - Gabapentin 100MG at noon, 200MG QHS. * Iron deficiency anemia - Ferrex 150MG daily. * Hypomagnesemia - Mag Oxide 400MG daily. * Skin irritation - Calmoseptine TID. * Nausea - Zofran 4MG Q6H PRN. * Hypokalemia - K-dur 20MEQ TID. * Atrial Fibrillation - Coreg 25MG BID, coumadin 4.5MG daily, INR 3.4, coumadin adjusted.
[2017-11-10] MEDS: Carvedilol 25 MG Tablet PO ×2 (05:27→17:54)
[2017-11-10] MEDS: Menthol/Lanolin/Calamine/Znox 113 GM Tube 1 APPLIC TOPICAL ×3 (05:27→20:38)
[2017-11-10] MEDS: Aspirin 81 MG TAB.CHEW PO (05:27)
[2017-11-10] MEDS: Iron Polysaccharide Complex 150 MG CAPSULE PO (05:28)
[2017-11-10] MEDS: Famotidine 20 MG Tablet PO ×2 (05:30→17:54)
[2017-11-10] MEDS: Furosemide 40 MG Tablet PO ×2 (05:30→17:54)
[2017-11-10] MEDS: Magnesium Oxide 400 MG Tablet PO (05:30)
[2017-11-10] MEDS: Ondansetron ODT 4 MG Tablet PO (05:30)
[2017-11-10] MEDS: amLODIPine 5 MG Tablet PO (05:30)
--- NOTE | 2017-11-10 05:32 | NURSING ---
Pt c/o feeling 'sick to my stomach' states she did not sleep well though she appeared to rest during night. Given zofran odt 4mg per request, stated it was helpful last night. Repositioned for comfort, continuing to monitor.
[2017-11-10] MEDS: Gabapentin 100 MG Capsule PO (11:52)
[2017-11-10 15:26] VITALS: BP 102/64; PULSE 70; RESP 18; TEMP 36.9; O2SAT 100
--- NOTE | 2017-11-10 17:05 | NURSING ---
Pt has c/o feeling down and depressed. Dr. Bach made aware, NO for lexapro 10mg PO daily.
[2017-11-10] MEDS: Atorvastatin Calcium 20 MG Tablet PO (20:39)
[2017-11-10 20:40] VITALS: PULSE 86
[2017-11-10] MEDS: Gabapentin 100 MG Capsule 200 MG PO (20:40)
[2017-11-11 05:30] VITALS: BP 113/76; PULSE 85
[2017-11-11] MEDS: Aspirin 81 MG TAB.CHEW PO (05:39)
[2017-11-11] MEDS: Carvedilol 25 MG Tablet PO ×2 (05:39→18:25)
[2017-11-11] MEDS: Menthol/Lanolin/Calamine/Znox 113 GM Tube 1 APPLIC TOPICAL ×3 (05:39→20:34)
[2017-11-11] MEDS: Escitalopram Oxalate 10 MG Tablet PO (05:40)
[2017-11-11] MEDS: Iron Polysaccharide Complex 150 MG CAPSULE PO (05:40)
[2017-11-11] MEDS: amLODIPine 5 MG Tablet PO (05:40)
[2017-11-11] MEDS: Furosemide 40 MG Tablet PO ×2 (05:40→18:27)
[2017-11-11] MEDS: Famotidine 20 MG Tablet PO ×2 (05:40→18:27)
[2017-11-11] MEDS: Magnesium Oxide 400 MG Tablet PO (05:40)
[2017-11-11 07:28] VITALS: O2SAT 95
[2017-11-11] MEDS: Gabapentin 100 MG Capsule PO (13:50)
[2017-11-11 15:43] VITALS: BP 121/71; PULSE 84; RESP 18; TEMP 36.8; O2SAT 99
[2017-11-11 20:30] VITALS: O2SAT 98
[2017-11-11] MEDS: Gabapentin 100 MG Capsule 200 MG PO (20:33)
[2017-11-11] MEDS: Atorvastatin Calcium 20 MG Tablet PO (20:33)
[2017-11-12] MEDS: Famotidine 20 MG Tablet PO ×2 (05:23→17:35)
[2017-11-12] MEDS: amLODIPine 5 MG Tablet PO (05:23)
[2017-11-12] MEDS: Magnesium Oxide 400 MG Tablet PO (05:23)
[2017-11-12] MEDS: Escitalopram Oxalate 10 MG Tablet PO (05:23)
[2017-11-12] MEDS: Iron Polysaccharide Complex 150 MG CAPSULE PO (05:24)
[2017-11-12] MEDS: Carvedilol 25 MG Tablet PO ×2 (05:24→17:35)
[2017-11-12] MEDS: Furosemide 40 MG Tablet PO ×2 (05:24→17:35)
[2017-11-12] MEDS: Aspirin 81 MG TAB.CHEW PO (05:24)
[2017-11-12] MEDS: Menthol/Lanolin/Calamine/Znox 113 GM Tube 1 APPLIC TOPICAL ×3 (05:25→20:42)
[2017-11-12 05:59] LABS: Prothrombin Time (Protime)PT. 31.1 SECONDS (11.7-14.9)
[2017-11-12 08:06] VITALS: O2SAT 98
[2017-11-12 10:00] VITALS: PULSE 94; RESP 18; O2SAT 98
[2017-11-12] MEDS: Gabapentin 100 MG Capsule PO (11:35)
--- NOTE | 2017-11-12 11:35 | CASEMGMT ---
Social Work Met with resident and resident family, collaborating on discharge plan and support. After discussion, resident is agreeable to PASSPORT referral. This nursing home social worker also provided resident family with list of private duty aides within the area. Support given. Referral made for PASSPORT services to the [facility]. Will continue to follow. Nay BARBA, ASSEMBLY MACHINE TENDER
[2017-11-12 16:00] VITALS: BP 110/68; PULSE 68; RESP 16; TEMP 36.4; O2SAT 98
[2017-11-12] MEDS: Gabapentin 100 MG Capsule 200 MG PO (20:43)
[2017-11-12] MEDS: Atorvastatin Calcium 20 MG Tablet PO (20:43)
[2017-11-13] MEDS: Ondansetron ODT 4 MG Tablet PO (04:22)
[2017-11-13] MEDS: Carvedilol 25 MG Tablet PO ×2 (04:22→17:14)
[2017-11-13] MEDS: Menthol/Lanolin/Calamine/Znox 113 GM Tube 1 APPLIC TOPICAL ×3 (04:22→20:51)
[2017-11-13] MEDS: Iron Polysaccharide Complex 150 MG CAPSULE PO (04:23)
[2017-11-13] MEDS: Aspirin 81 MG TAB.CHEW PO (04:23)
[2017-11-13] MEDS: Furosemide 40 MG Tablet PO ×2 (04:23→17:14)
[2017-11-13] MEDS: Escitalopram Oxalate 10 MG Tablet PO (04:24)
[2017-11-13] MEDS: Magnesium Oxide 400 MG Tablet PO (04:24)
[2017-11-13] MEDS: Famotidine 20 MG Tablet PO ×2 (04:24→17:14)
[2017-11-13] MEDS: amLODIPine 5 MG Tablet PO (04:24)
[2017-11-13 07:54] VITALS: O2SAT 99
[2017-11-13 10:00] VITALS: PULSE 80; RESP 20; O2SAT 94
--- NOTE | 2017-11-13 11:55 | PN.ID_ITS ---
Subjective: Feeling well, no issues with L hip, no fever, breathing stable - Physical Exam General: Alert, Cooperative, No apparent distress Lungs: Rhonchi Cardiovascular: Regular rate, Regular Rhythm Abdomen: Soft, Non Tender, Non-Distended Skin: No rashes Vital Signs Temp Pulse Resp BP Pulse Ox 97.5 F L 68 16 110/68 99 11/12/17 16:00 11/12/17 16:00 11/12/17 16:00 11/12/17 16:00 11/13/17 07:54 Oxygen Flow Rate (L/min) 3.5 Oxygen Delivery Method Nasal Cannula Weight: 63.219 kg Body Mass Index (BMI) 37.5 Finger Stick Blood Glucose 156 Intake and Output for Last 24 Hours 11/11/17 11/12/17 11/13/17 23:59 23:59 23:59 Intake Total 400 / 400 480 / 480 100 / 100 Balance 400 / 400 480 / 480 100 / 100 Medical Necessity - Tobacco Use Smoking Status: Smoker, status unknown Route of nutrition/ use of supplements: [] Nutritional Intake: [] IV Site: [] Yang Catheter: [] - Assessment/Plan Antibiotics: [] Assessment/Plan: [] Superficial surgical site infection s/p L total hip replacement 07/21/17 - now s/ p debridement 09/[address] Parr with cxs (+) for bacteroides. CT showed small fluid collection near surgical site. Had some increased SOB and cxr changes. Completed recent course of omnicef and flagyl. Doing well off of abx. Will follow as needed, please call with any ?
[2017-11-13] MEDS: Gabapentin 100 MG Capsule PO (12:09)
--- NOTE | 2017-11-13 12:15 | MDS.RN ---
Information for the mds was obtained from review of the clinical record, interview of resident, staff, and direct observation of resident's care.
[2017-11-13 15:26] VITALS: BP 137/63; PULSE 75; RESP 20; TEMP 36.8; O2SAT 99
--- NOTE | 2017-11-13 16:49 | CASEMGMT ---
Social Work: Brief Interview for mental status (BIMS) and PHQ-9 completed this day. BIMS score 15/15 and PHQ-9 score 0/27. SHARLENE Montes De Oca
[2017-11-13] MEDS: Gabapentin 100 MG Capsule 200 MG PO (20:50)
[2017-11-13] MEDS: Atorvastatin Calcium 20 MG Tablet PO (20:51)
[2017-11-14] MEDS: Carvedilol 25 MG Tablet PO ×2 (04:21→17:25)
[2017-11-14] MEDS: Aspirin 81 MG TAB.CHEW PO (04:21)
[2017-11-14] MEDS: Iron Polysaccharide Complex 150 MG CAPSULE PO (04:22)
[2017-11-14] MEDS: Famotidine 20 MG Tablet PO ×2 (04:22→17:28)
[2017-11-14] MEDS: Magnesium Oxide 400 MG Tablet PO (04:22)
[2017-11-14] MEDS: Furosemide 40 MG Tablet PO ×2 (04:22→17:25)
[2017-11-14] MEDS: amLODIPine 5 MG Tablet PO (04:22)
[2017-11-14] MEDS: Escitalopram Oxalate 10 MG Tablet PO (04:22)
[2017-11-14] MEDS: Menthol/Lanolin/Calamine/Znox 113 GM Tube 1 APPLIC TOPICAL ×3 (04:24→21:15)
[2017-11-14 07:09] LABS: Absolute Lymphocyte Count 0.99 X10^3/ul (0.83-4.51); Absolute Neutrophil Count 3.1 X10^3/uL (2.0-7.7); Basophil# 0.03 X10^3/uL; Basophil% 0.6 % (0-1); Eosinophil# 0.55 X10^3/uL; Eosinophils% 10.4 % (0-5); Hematocrit 34.7 % (37-47); Hemoglobin 10.5 g/dl (12.0-15.0); Lymphocyte # 0.99 X10^3/ul (4.0); Lymphocyte % 18.7 % (19-41); Mean Corp Hgb Conc 30.3 g/gl (32-36); Mean Corpuscular Hgb 28.2 pg (27.0-32.0); Mean Corpuscular Volume 93.3 fL (81-99); Monocyte# 0.66 X10^3/uL; Monocyte% 12.5 % (0-10); Neutrophil # 3.06 X10^3/uL (2.7-7.7); Neutrophil % 57.8 % (47-70); Platelet Count 197 K/mm3 (150-450); RBC Distribution Width CV 16.3 % (11.6-14.6); RBC Distribution Width SD 56.3 fl (35.1-43.9); Red Blood Count 3.72 M/mm3 (4.2-5.4); White Blood Count 5.3 K/mm3 (4.4-11.0)
[2017-11-14 07:13] LABS: Anion Gap 8 (5-15); BUN 5 mg/dL (7-18); BUN/Creat Ratio 9.5 RATIO (10-20); Calcium,Total 8.7 mg/dL (8.5-10.1); Chloride 99 mmol/L (98-107); Creatinine, Serum 0.53 mg/dL (0.55-1.02); EST Glomerular Filtration Rate 119 mL/min (>60); Est Glom Filt Rate - Afr Amer 144 mL/min (>60); Estimated Creatinine Clearance 37.12 ml/min; Glucose 82 mg/dL (74-106); Potassium 4.3 mmol/L (3.5-5.1); Sodium Level 138 mmol/L (136-145)
[2017-11-14 07:16] LABS: POSITIVE COUNT NO; POSITIVE DIFFERENTIAL NO; POSITIVE MORPHOLOGY NO
[2017-11-14 07:57] VITALS: O2SAT 98
--- NOTE | 2017-11-14 09:15 | NURSING ---
Dr. Bach reviewed AM labs, NNO
[2017-11-14] MEDS: Gabapentin 100 MG Capsule PO (12:21)
[2017-11-14 15:29] VITALS: BP 107/57; PULSE 70; RESP 18; TEMP 36.4; O2SAT 100
[2017-11-14 20:00] VITALS: PULSE 74; RESP 20; O2SAT 94
[2017-11-14] MEDS: Gabapentin 100 MG Capsule 200 MG PO (21:16)
[2017-11-14] MEDS: Atorvastatin Calcium 20 MG Tablet PO (21:16)
[2017-11-15] MEDS: Menthol/Lanolin/Calamine/Znox 113 GM Tube 1 APPLIC TOPICAL ×3 (06:30→20:53)
[2017-11-15] MEDS: Escitalopram Oxalate 10 MG Tablet PO (06:30)
[2017-11-15] MEDS: amLODIPine 5 MG Tablet PO (06:30)
[2017-11-15] MEDS: Famotidine 20 MG Tablet PO ×2 (06:30→17:35)
[2017-11-15] MEDS: Magnesium Oxide 400 MG Tablet PO (06:31)
[2017-11-15] MEDS: Furosemide 40 MG Tablet PO ×2 (06:31→17:35)
[2017-11-15] MEDS: Aspirin 81 MG TAB.CHEW PO (06:31)
[2017-11-15] MEDS: Carvedilol 25 MG Tablet PO ×2 (06:31→17:35)
[2017-11-15] MEDS: Iron Polysaccharide Complex 150 MG CAPSULE PO (06:31)
[2017-11-15 07:20] VITALS: O2SAT 100
--- NOTE | 2017-11-15 11:44 | NURSING ---
Pt has c/o of feeling fuzzy in her head and a little bit dizzy Pulse 70, Resps 18, oxygen 99% on 3L, BP 105/70. Lungs with fine crackles in bases. Patient has no other complaints. Pt. recently started on Prozac for depression, states her mood is greatly improved. Explained to patient that symptoms may be side effect of medication. Patient states that she would like to continue the medication for a few more days to see if the symptoms improve, since it is helping her mood significantly. Fluids and oral intake encouraged for patient. Will continue to monitor.
[2017-11-15] MEDS: Gabapentin 100 MG Capsule PO (12:33)
[2017-11-15 15:41] VITALS: BP 131/71; PULSE 74; RESP 20; TEMP 36.8; O2SAT 98
[2017-11-15 20:00] VITALS: PULSE 74; RESP 18; O2SAT 95
[2017-11-15] MEDS: Atorvastatin Calcium 20 MG Tablet PO (20:54)
[2017-11-15] MEDS: Gabapentin 100 MG Capsule 200 MG PO (20:54)
[2017-11-16] MEDS: Menthol/Lanolin/Calamine/Znox 113 GM Tube 1 APPLIC TOPICAL ×3 (05:56→22:10)
[2017-11-16] MEDS: Carvedilol 25 MG Tablet PO ×2 (05:56→17:39)
[2017-11-16] MEDS: Aspirin 81 MG TAB.CHEW PO (05:56)
[2017-11-16] MEDS: Escitalopram Oxalate 10 MG Tablet PO (05:57)
[2017-11-16] MEDS: Furosemide 40 MG Tablet PO ×2 (05:57→17:38)
[2017-11-16] MEDS: amLODIPine 5 MG Tablet PO (05:57)
[2017-11-16] MEDS: Famotidine 20 MG Tablet PO ×2 (05:57→17:38)
[2017-11-16] MEDS: Iron Polysaccharide Complex 150 MG CAPSULE PO (05:57)
[2017-11-16] MEDS: Magnesium Oxide 400 MG Tablet PO (05:57)
[2017-11-16 06:21] LABS: International Normalized Ratio 2.7; Prothrombin Time (Protime)PT. 28.9 SECONDS (11.7-14.9)
[2017-11-16 10:00] VITALS: PULSE 70; RESP 18; O2SAT 98
[2017-11-16] MEDS: Gabapentin 100 MG Capsule PO (11:16)
[2017-11-16 15:49] VITALS: BP 109/57; PULSE 73; RESP 18; TEMP 36.2; O2SAT 99
[2017-11-16] MEDS: Atorvastatin Calcium 20 MG Tablet PO (22:12)
[2017-11-16] MEDS: Gabapentin 100 MG Capsule 200 MG PO (22:12)
[2017-11-17] MEDS: Magnesium Oxide 400 MG Tablet PO (05:22)
[2017-11-17] MEDS: Famotidine 20 MG Tablet PO ×2 (05:22→17:43)
[2017-11-17] MEDS: Escitalopram Oxalate 10 MG Tablet PO (05:22)
[2017-11-17] MEDS: Carvedilol 25 MG Tablet PO ×2 (05:22→17:43)
[2017-11-17] MEDS: Aspirin 81 MG TAB.CHEW PO (05:22)
[2017-11-17] MEDS: amLODIPine 5 MG Tablet PO (05:22)
[2017-11-17] MEDS: Furosemide 40 MG Tablet PO ×2 (05:22→17:43)
[2017-11-17] MEDS: Iron Polysaccharide Complex 150 MG CAPSULE PO (05:22)
[2017-11-17] MEDS: Menthol/Lanolin/Calamine/Znox 113 GM Tube 1 APPLIC TOPICAL ×3 (05:34→20:52)
[2017-11-17 06:40] VITALS: O2SAT 98
[2017-11-17] MEDS: Gabapentin 100 MG Capsule PO (11:49)
--- NOTE | 2017-11-17 13:49 | CASEMGMT ---
Social Work Spoke with resident and resident daughter in room. This social media senior associate communicating that discharge date has been set for 11/27/17. Resident and resident daughter are agreeable to recommendation. This social media senior associate communicating that physical and occupational therapy are recommending for resident to continue with services within the home and that resident should have 24hr care at time of discharge. Resident is agreeable to home health services and aware that resident needs 24hr care. Resident daughter voicing that resident will have 24hr care at time of discharge provided by family. Resident reporting to have a walker at home. Resident is new on oxygen. Nursing to complete home oxygen test with oxygen one day prior to resident discharge. If resident qualifies for home oxygen this social media senior associate to set up home oxygen for resident. Support given. Proposed discharge date: 11/27/17 PLAN: Discharge home where resident will have 24hr care and home health services. Will continue to follow. Nay BARBA, UNIVERSITY LECTURER
[2017-11-17 15:13] VITALS: BP 104/61; PULSE 66; RESP 18; TEMP 36.6; O2SAT 100
--- NOTE | 2017-11-17 17:49 | DCINST_ITS ---
You will use the following diet at home:: No restrictions, Regular Your food should be the consistency of: Regular Your liquids should be the consistency of: Regular/Thin Discharge Activity: Return to Normal Activity, May Shower, Use Walker Weight Bearing Status: Weight bearing as tolerated Call your doctor if you observe: Fever of 101 or Higher, Inability to urinate, Inability to have a bowel movement, Shortness of breath, Chest pain, Uncontrolled pain Allergies/Adverse Reactions: Allergies adhesive Allergy (Verified 09/30/17 21:57) Unknown etodolac Allergy (Verified 09/30/17 21:57) Unknown magnesium Allergy (Verified 09/30/17 21:57) Unknown melatonin Allergy (Verified 09/30/17 21:57) Unknown nitroglycerin Allergy (Verified 09/30/17 21:57) Unknown oxycodone HCl [From Percocet] Allergy (Verified 09/30/17 21:57) Unknown phenobarbital Allergy (Verified 09/30/17 21:57) Unknown tolmetin sodium [From Tolectin] Allergy (Verified 09/30/17 21:57) Unknown venlafaxine Allergy (Verified 09/30/17 21:57) Unknown coenzyme Q10 Allergy (Uncoded 09/30/17 21:57) Unknown nitropatch Allergy (Uncoded 09/30/17 21:57) unknown Medications to take at Discharge Magnesium Oxide [Mag-Ox 400] 400 mg PO DAILY 09/17/15 Nitroglycerin [Nitrostat] 0.4 mg SUBLINGUAL Q5M PRN 09/20/15 gabapentin 100 mg capsule 200 mg PO BID 05/05/17 amlodipine 5 mg tablet 5 mg PO DAILY 06/23/17 atorvastatin 40 mg tablet 20 mg PO QHS tab 06/23/17 Carvedilol [Coreg (Beta Gene)] 25 mg PO BID 07/06/17 Cholecalciferol (Vitamin D3) [Vitamin D3] 1,000 unit PO DAILY 07/06/17 Albuterol Aerosols [Ventolin Aerosols] 2.5 mg INHALATION Q4H PRN PRN 09/30/17 Famotidine [Pepcid] 20 mg PO BID 09/30/17 Aspirin E.C. [Ecotrin] 81 mg PO DAILY 10/11/17 Furosemide [Lasix] 40 mg PO BID@1000,1800 10/11/17 Albuterol Aerosols [Ventolin Aerosols] 2.5 mg INHALATION Q2H PRN PRN vial.neb. 11/17/17 Amlodipine [Norvasc] 5 mg PO DAILY tablet 11/17/17 Aspirin [Aspirin, Baby] 81 mg PO DAILY tab.chew 11/17/17 Atorvastatin Calcium [Lipitor] 20 mg PO QHS tablet 11/17/17 Carvedilol [Coreg (Beta Gene)] 25 mg PO BID tablet 11/17/17 Escitalopram Oxalate [Lexapro] 10 mg PO DAILY #30 tab 11/17/17 Famotidine [Pepcid] 20 mg PO BID tablet 11/17/17 Furosemide [Lasix] 40 mg PO BID #30 tab 11/17/17 Gabapentin [Neurontin] 100 mg PO 1200 capsule 11/17/17 Gabapentin [Neurontin] 200 mg PO QHS capsule 11/17/17 Iron Polysaccharide Complex [Ferrex 150] 150 mg PO DAILY #30 cap 11/17/17 Magnesium Oxide [Mag-Ox 400] 400 mg PO DAILY tablet 11/17/17 Menthol/Lanolin/Calamine/Znox [Calmoseptine Ointment] 1 applic TOPICAL TID tube 11/17/17 Nitroglycerin [Nitrostat] 0.4 mg SUBLINGUAL Q5M PRN tablet 11/17/17 Potassium Chloride [K-Dur] 20 meq PO TID #90 tab 11/17/17 Warfarin [Coumadin] 2 mg PO DAILY@1700 #30 tab 11/17/17 Warfarin [Coumadin] 2.5 mg PO DAILY@1700 #30 tab 11/17/17 The following prescriptions were given: Escitalopram Oxalate [Lexapro] 10 mg PO DAILY #30 tab Iron Polysaccharide Complex [Ferrex 150] 150 mg PO DAILY #30 cap Warfarin [Coumadin] 2.5 mg PO DAILY@1700 #30 tab Warfarin [Coumadin] 2 mg PO DAILY@1700 #30 tab Furosemide [Lasix] 40 mg PO BID #30 tab Potassium Chloride [K-Dur] 20 meq PO TID #90 tab Orders to be completed after discharge: Prothrombin Time w/INR Time Frame: 3 Days, Location: Laboratory Primary Care Physician: Bijan Austin MD [Primary Care Provider] - Please follow up with your Primary Care Physician in: 1 week. Test Results: Test results from this visit will be discussed in further detail at your follow- up appointment, if applicable. Please Follow Up With: [facility] When: 11/05/17 Please Follow Up With: Dr Parr When: 2 weeks. Please Follow Up With: Dr Reynolds When: 2 weeks. Please Follow Up With: Dr Parr Please Follow Up With: MARION DANG When: 2 weeks. Proposed Discharge Date: 11/27/17
--- NOTE | 2017-11-17 17:49 | PCM.DC.SUM ---
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) Hyperthyroidism (Chronic) Hypokalemia (Chronic) Atherosclerotic heart disease of [place] coronary artery without angina pectoris (Chronic) CABG x1 RANDLE-LAD x/Aortic Valve Replacement Left bundle-branch block (Chronic) Nonrheumatic aortic valve stenosis (Chronic) HTN (hypertension) (Chronic) Other chest pain (Chronic) Presence of aortocoronary bypass graft (Chronic) Dyspnea on exertion (Chronic) Fatigue (Chronic) Chronic pulmonary heart disease (Chronic) CVA (cerebral infarction) (Chronic) Hyperlipidemia (Chronic) Paroxysmal ventricular tachycardia (Chronic) HTN (hypertension) (Chronic) Hypothyroidism associated with surgical procedure (Chronic) had a subtotal thyroidectomy for goiter Hemorrhoids (Chronic) Restless leg syndrome (Chronic) TIA (transient ischemic attack) (Chronic) multiple History of aortic valve replacement with bioprosthetic valve (Chronic) Hospital Course and Treatment Imaging Results: 10/21/17 14:29 Diet: Regular Diet Is pt able to select menu?: Yes Clinical Impression(s) from Imaging Studies Chest X-Ray 10/22/17 18:07 IMPRESSION: Bilateral airspace opacities which are worse when compared with the prior exam. Small bilateral pleural effusions. Electronically Signed: Sukh Arceo, at 19:05 EDT Tel , Service support , KUB X-Ray 10/22/17 18:40 IMPRESSION: Multiple dilated loops of small bowel which may represent a small bowel obstruction. Further evaluation with CT is recommended. Electronically Signed: Sukh Arceo, at 19:21 EDT Tel , Service support , Labs (Last 48 Hours) 11/16/17 05:05 PT 28.9 H INR 2.7 Operations: None Procedures: None Summary of Care Provided: The patient is a 82 year old Female with below past medical history hospitalized for acute on chronic respiratory failure, admitted to TCU with debility, here for rehabilitation, strengthening, prior to discharge home. Discharge home with 24 hour care, and Home Health Services. Discharge Diet: No Restrictions Discharge Activity: Return to Normal Activity, May Shower, Use Walker Weight Bearing Status: Weight bearing as tolerated Call your doctor if you observe: Fever of 101 or Higher, Inability to urinate, Inability to have a bowel movement, Shortness of breath, Chest pain, Uncontrolled pain Home Medications: Medications to take at Discharge Magnesium Oxide [Mag-Ox 400] 400 mg PO DAILY 09/17/15 Nitroglycerin [Nitrostat] 0.4 mg SUBLINGUAL Q5M PRN 09/20/15 gabapentin 100 mg capsule 200 mg PO BID 05/05/17 amlodipine 5 mg tablet 5 mg PO DAILY 06/23/17 atorvastatin 40 mg tablet 20 mg PO QHS tab 06/23/17 Carvedilol [Coreg (Beta Gene)] 25 mg PO BID 07/06/17 Cholecalciferol (Vitamin D3) [Vitamin D3] 1,000 unit PO DAILY 07/06/17 Albuterol Aerosols [Ventolin Aerosols] 2.5 mg INHALATION Q4H PRN PRN 09/30/17 Famotidine [Pepcid] 20 mg PO BID 09/30/17 Aspirin E.C. [Ecotrin] 81 mg PO DAILY 10/11/17 Furosemide [Lasix] 40 mg PO BID@1000,1800 10/11/17 Albuterol Aerosols [Ventolin Aerosols] 2.5 mg INHALATION Q2H PRN PRN vial.neb. 11/17/17 Amlodipine [Norvasc] 5 mg PO DAILY tablet 11/17/17 Aspirin [Aspirin, Baby] 81 mg PO DAILY tab.chew 11/17/17 Atorvastatin Calcium [Lipitor] 20 mg PO QHS tablet 11/17/17 Carvedilol [Coreg (Beta Gene)] 25 mg PO BID tablet 11/17/17 Escitalopram Oxalate [Lexapro] 10 mg PO DAILY #30 tab 11/17/17 Famotidine [Pepcid] 20 mg PO BID tablet 11/17/17 Furosemide [Lasix] 40 mg PO BID #30 tab 11/17/17 Gabapentin [Neurontin] 100 mg PO 1200 capsule 11/17/17 Gabapentin [Neurontin] 200 mg PO QHS capsule 11/17/17 Iron Polysaccharide Complex [Ferrex 150] 150 mg PO DAILY #30 cap 11/17/17 Magnesium Oxide [Mag-Ox 400] 400 mg PO DAILY tablet 11/17/17 Menthol/Lanolin/Calamine/Znox [Calmoseptine Ointment] 1 applic TOPICAL TID tube 11/17/17 Nitroglycerin [Nitrostat] 0.4 mg SUBLINGUAL Q5M PRN tablet 11/17/17 Potassium Chloride [K-Dur] 20 meq PO TID #90 tab 11/17/17 Warfarin [Coumadin] 2 mg PO DAILY@1700 #30 tab 11/17/17 Warfarin [Coumadin] 2.5 mg PO DAILY@1700 #30 tab 11/17/17 Following Prescrptions Were Given to Patient: Escitalopram Oxalate [Lexapro] 10 mg PO DAILY #30 tab Iron Polysaccharide Complex [Ferrex 150] 150 mg PO DAILY #30 cap Warfarin [Coumadin] 2.5 mg PO DAILY@1700 #30 tab Warfarin [Coumadin] 2 mg PO DAILY@1700 #30 tab Furosemide [Lasix] 40 mg PO BID #30 tab Potassium Chloride [K-Dur] 20 meq PO TID #90 tab Other Amb Orders: Prothrombin Time w/INR Time Frame: 3 Days, Location: Laboratory Primary Care Physician: Bijan Austin MD [Primary Care Provider] - Please follow up with your Primary Care Physician in: 1 week. Please Follow Up With: [facility] When: 11/05/17 Please Follow Up With: Dr Parr When: 2 weeks. Please Follow Up With: Dr Reynolds When: 2 weeks. Please Follow Up With: Dr Parr Please Follow Up With: MARION DANG When: 2 weeks. Disposition: Home with Home Health Minutes spent on discharge:: 35 Patient Condition:: Stable Medical Necessity - Tobacco Use Smoking Status: Smoker, status unknown Meaningful Use Info Meaningful Use Diagnoses (Choose all that apply): None applicable
--- NOTE | 2017-11-17 17:52 | HHNOTE_ITS ---
Home Health Note - Plan Overview of reason of hospitalization: The patient is a 82 year old Female with below past medical history hospitalized for acute on chronic respiratory failure, admitted to TCU with debility, here for rehabilitation, strengthening, prior to discharge home. Discharge home with 24 hour care, and Home Health Services. 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) Hyperthyroidism (Chronic) Hypokalemia (Chronic) Atherosclerotic heart disease of [place] coronary artery without angina pectoris (Chronic) Left bundle-branch block (Chronic) Nonrheumatic aortic valve stenosis (Chronic) HTN (hypertension) (Chronic) Other chest pain (Chronic) Presence of aortocoronary bypass graft (Chronic) Dyspnea on exertion (Chronic) Fatigue (Chronic) Chronic pulmonary heart disease (Chronic) CVA (cerebral infarction) (Chronic) Hyperlipidemia (Chronic) Paroxysmal ventricular tachycardia (Chronic) HTN (hypertension) (Chronic) Neck swelling (Acute) Hypothyroidism associated with surgical procedure (Chronic) Hemorrhoids (Chronic) Restless leg syndrome (Chronic) TIA (transient ischemic attack) (Chronic) History of aortic valve replacement with bioprosthetic valve (Chronic) - Requirements and Reasons Disciplines Needed/Ordered: [facility], Physical Therapy Reason for Disciplines: Gait Training, Stair Training, Fall Prevention, Home Safety/Equipment Instruction, Balance and/or Posture Training, Transfer Training Related To: Limited/Poor Endurance, Shortness of Breath with Activity, Physical Impairments, Unsteady Gait/Balance, Fall Risk Patient is unable to leave the home: Without Aid of Supportive Devices (crutches , cane, wheelchair, walker), Without the assistance of another person - Additional Disciplines Additional Disciplines Needed/Ordered: Occupational Therapy, Home Health Aide
[2017-11-17 20:00] VITALS: PULSE 80; RESP 20; O2SAT 94
[2017-11-17] MEDS: Gabapentin 100 MG Capsule 200 MG PO (20:53)
[2017-11-17] MEDS: Atorvastatin Calcium 20 MG Tablet PO (20:53)
[2017-11-18] MEDS: Aspirin 81 MG TAB.CHEW PO (05:29)
[2017-11-18] MEDS: Ondansetron ODT 4 MG Tablet PO (05:29)
[2017-11-18] MEDS: Iron Polysaccharide Complex 150 MG CAPSULE PO (05:30)
[2017-11-18] MEDS: Carvedilol 25 MG Tablet PO ×2 (05:30→16:51)
[2017-11-18] MEDS: Menthol/Lanolin/Calamine/Znox 113 GM Tube 1 APPLIC TOPICAL ×3 (05:30→20:59)
[2017-11-18] MEDS: Furosemide 40 MG Tablet PO ×2 (05:31→16:51)
[2017-11-18] MEDS: Escitalopram Oxalate 10 MG Tablet PO (05:31)
[2017-11-18] MEDS: amLODIPine 5 MG Tablet PO (05:33)
[2017-11-18] MEDS: Magnesium Oxide 400 MG Tablet PO (05:33)
[2017-11-18] MEDS: Famotidine 20 MG Tablet PO ×2 (05:33→16:51)
[2017-11-18 06:50] VITALS: O2SAT 94
[2017-11-18 10:00] VITALS: PULSE 94; RESP 18; O2SAT 95
[2017-11-18] MEDS: Gabapentin 100 MG Capsule PO (11:44)
[2017-11-18 15:27] VITALS: BP 109/62; PULSE 77; RESP 16; TEMP 36.4; O2SAT 94
[2017-11-18] MEDS: Atorvastatin Calcium 20 MG Tablet PO (20:58)
[2017-11-18] MEDS: Gabapentin 100 MG Capsule 200 MG PO (20:58)
[2017-11-19] MEDS: Furosemide 40 MG Tablet PO ×2 (05:21→17:41)
[2017-11-19] MEDS: Escitalopram Oxalate 10 MG Tablet PO (05:21)
[2017-11-19] MEDS: Carvedilol 25 MG Tablet PO ×2 (05:21→17:42)
[2017-11-19] MEDS: amLODIPine 5 MG Tablet PO (05:21)
[2017-11-19] MEDS: Magnesium Oxide 400 MG Tablet PO (05:21)
[2017-11-19] MEDS: Aspirin 81 MG TAB.CHEW PO (05:21)
[2017-11-19] MEDS: Famotidine 20 MG Tablet PO ×2 (05:21→17:41)
[2017-11-19] MEDS: Iron Polysaccharide Complex 150 MG CAPSULE PO (05:21)
[2017-11-19] MEDS: Menthol/Lanolin/Calamine/Znox 113 GM Tube 1 APPLIC TOPICAL ×3 (05:22→19:55)
[2017-11-19 05:48] LABS: International Normalized Ratio 2.8; Prothrombin Time (Protime)PT. 29.6 SECONDS (11.7-14.9)
[2017-11-19 06:45] VITALS: PULSE 72; O2SAT 96
[2017-11-19] MEDS: Gabapentin 100 MG Capsule PO (12:20)
--- NOTE | 2017-11-19 13:31 | NURSING ---
Dr. Bach reviewed INR today, N.N.O.
[2017-11-19 15:55] VITALS: BP 118/67; PULSE 78; RESP 20; TEMP 36.6; O2SAT 95
[2017-11-19] MEDS: Gabapentin 100 MG Capsule 200 MG PO (19:54)
[2017-11-19] MEDS: Atorvastatin Calcium 20 MG Tablet PO (19:54)
[2017-11-20] MEDS: Magnesium Oxide 400 MG Tablet PO (05:55)
[2017-11-20] MEDS: Carvedilol 25 MG Tablet PO ×2 (05:55→17:55)
[2017-11-20] MEDS: Iron Polysaccharide Complex 150 MG CAPSULE PO (05:55)
[2017-11-20] MEDS: Famotidine 20 MG Tablet PO ×2 (05:55→17:55)
[2017-11-20] MEDS: amLODIPine 5 MG Tablet PO (05:56)
[2017-11-20] MEDS: Furosemide 40 MG Tablet PO ×2 (05:56→17:55)
[2017-11-20] MEDS: Aspirin 81 MG TAB.CHEW PO (05:56)
[2017-11-20] MEDS: Menthol/Lanolin/Calamine/Znox 113 GM Tube 1 APPLIC TOPICAL ×3 (07:33→21:31)
[2017-11-20 08:12] VITALS: O2SAT 99
[2017-11-20 09:40] VITALS: PULSE 72; RESP 18; O2SAT 3
[2017-11-20] MEDS: Gabapentin 100 MG Capsule PO (11:26)
--- NOTE | 2017-11-20 11:32 | NURSING ---
Dr. Bach returned from [facility] with pulmonary medicine, N.N.O.
[2017-11-20 15:21] VITALS: BP 115/64; PULSE 78; RESP 18; TEMP 36.4; O2SAT 95
[2017-11-20] MEDS: Gabapentin 100 MG Capsule 200 MG PO (21:28)
[2017-11-20] MEDS: Atorvastatin Calcium 20 MG Tablet PO (21:28)
[2017-11-21] MEDS: Carvedilol 25 MG Tablet PO ×2 (05:21→17:45)
[2017-11-21] MEDS: Magnesium Oxide 400 MG Tablet PO (05:21)
[2017-11-21] MEDS: Iron Polysaccharide Complex 150 MG CAPSULE PO (05:21)
[2017-11-21] MEDS: Aspirin 81 MG TAB.CHEW PO (05:21)
[2017-11-21] MEDS: Famotidine 20 MG Tablet PO ×2 (05:21→17:45)
[2017-11-21] MEDS: amLODIPine 5 MG Tablet PO (05:21)
[2017-11-21] MEDS: Furosemide 40 MG Tablet PO ×2 (05:21→17:46)
--- NOTE | 2017-11-21 05:25 | NURSING ---
pt states she doesn't want to take lexpro anymore will let Debora RN know she would like for doctor to d/c
[2017-11-21 07:36] VITALS: O2SAT 98
[2017-11-21] MEDS: Menthol/Lanolin/Calamine/Znox 113 GM Tube 1 APPLIC TOPICAL ×3 (07:39→21:38)
[2017-11-21 10:00] VITALS: PULSE 98; RESP 18; O2SAT 98
[2017-11-21] MEDS: Gabapentin 100 MG Capsule PO (11:27)
--- NOTE | 2017-11-21 11:48 | NURSING ---
PT BEEN REFUSING LEXAPRO, STATES MAKING HER FEEL FUNNY. DR AKINS NOTIFIED, NEW ORDER TO D/C
[2017-11-21 15:21] VITALS: BP 113/51; PULSE 70; RESP 18; TEMP 36.4; O2SAT 98
[2017-11-21] MEDS: Gabapentin 100 MG Capsule 200 MG PO (21:37)
[2017-11-21] MEDS: Atorvastatin Calcium 20 MG Tablet PO (21:37)
[2017-11-22] MEDS: Aspirin 81 MG TAB.CHEW PO (05:02)
[2017-11-22] MEDS: Carvedilol 25 MG Tablet PO ×2 (05:02→17:29)
[2017-11-22] MEDS: Magnesium Oxide 400 MG Tablet PO (05:02)
[2017-11-22] MEDS: Iron Polysaccharide Complex 150 MG CAPSULE PO (05:02)
[2017-11-22] MEDS: Famotidine 20 MG Tablet PO ×2 (05:02→17:29)
[2017-11-22] MEDS: amLODIPine 5 MG Tablet PO (05:02)
[2017-11-22] MEDS: Furosemide 40 MG Tablet PO ×2 (05:02→17:29)
[2017-11-22] MEDS: Menthol/Lanolin/Calamine/Znox 113 GM Tube 1 APPLIC TOPICAL ×3 (05:03→21:57)
[2017-11-22 07:38] VITALS: O2SAT 97
[2017-11-22 10:00] VITALS: PULSE 97; RESP 18; O2SAT 96
[2017-11-22] MEDS: Gabapentin 100 MG Capsule PO (11:55)
[2017-11-22 15:46] VITALS: BP 113/52; PULSE 72; RESP 20; TEMP 37.1; O2SAT 99
[2017-11-22] MEDS: Gabapentin 100 MG Capsule 200 MG PO (21:54)
[2017-11-22] MEDS: Atorvastatin Calcium 20 MG Tablet PO (21:55)
[2017-11-23 05:11] VITALS: BP 129/74; PULSE 80; RESP 16; O2SAT 99
[2017-11-23] MEDS: Famotidine 20 MG Tablet PO ×2 (05:13→17:24)
[2017-11-23] MEDS: Carvedilol 25 MG Tablet PO ×2 (05:13→17:24)
[2017-11-23] MEDS: Furosemide 40 MG Tablet PO ×2 (05:13→17:24)
[2017-11-23] MEDS: Senna Tablet 2 TABLET PO (05:13)
[2017-11-23] MEDS: Aspirin 81 MG TAB.CHEW PO (05:13)
[2017-11-23] MEDS: amLODIPine 5 MG Tablet PO (05:13)
[2017-11-23] MEDS: Magnesium Oxide 400 MG Tablet PO (05:13)
[2017-11-23] MEDS: Iron Polysaccharide Complex 150 MG CAPSULE PO (05:14)
[2017-11-23] MEDS: Menthol/Lanolin/Calamine/Znox 113 GM Tube 1 APPLIC TOPICAL ×3 (05:15→21:15)
[2017-11-23 07:39] LABS: Anion Gap 4 (5-15); BUN 8 mg/dL (7-18); Calcium,Total 9.3 mg/dL (8.5-10.1); Chloride 100 mmol/L (98-107); Creatinine, Serum 0.57 mg/dL (0.55-1.02); EST Glomerular Filtration Rate 108 mL/min (>60); Est Glom Filt Rate - Afr Amer 130 mL/min (>60); Estimated Creatinine Clearance 37.12 ml/min; Glucose 85 mg/dL (74-106); Potassium 4.2 mmol/L (3.5-5.1); Sodium Level 138 mmol/L (136-145)
[2017-11-23 07:40] VITALS: O2SAT 100
[2017-11-23 07:45] VITALS: O2SAT 99
[2017-11-23 08:00] LABS: Absolute Lymphocyte Count 1.15 X10^3/ul (0.83-4.51); Absolute Neutrophil Count 3.5 X10^3/uL (2.0-7.7); Basophil# 0.06 X10^3/uL; Basophil% 1.1 % (0-1); Eosinophil# 0.32 X10^3/uL; Eosinophils% 5.8 % (0-5); Hematocrit 35.3 % (37-47); Hemoglobin 10.8 g/dl (12.0-15.0); Lymphocyte # 1.15 X10^3/ul (4.0); Lymphocyte % 20.7 % (19-41); Mean Corp Hgb Conc 30.6 g/gl (32-36); Mean Corpuscular Hgb 28.1 pg (27.0-32.0); Mean Corpuscular Volume 91.9 fL (81-99); Mean Platelet Vol. 11.1 fl (6.2-12.0); Monocyte# 0.54 X10^3/uL; Monocyte% 9.7 % (0-10); Neutrophil # 3.48 X10^3/uL (2.7-7.7); Neutrophil % 62.7 % (47-70); Platelet Count 192 K/mm3 (150-450); RBC Distribution Width CV 16.2 % (11.6-14.6); RBC Distribution Width SD 54.6 fl (35.1-43.9); Red Blood Count 3.84 M/mm3 (4.2-5.4); White Blood Count 5.6 K/mm3 (4.4-11.0)
[2017-11-23 08:04] LABS: POSITIVE COUNT NO; POSITIVE DIFFERENTIAL NO; POSITIVE MORPHOLOGY NO
[2017-11-23 08:07] LABS: International Normalized Ratio 3.3
[2017-11-23 10:00] VITALS: PULSE 97; RESP 20; O2SAT 2
[2017-11-23] MEDS: Gabapentin 100 MG Capsule PO (11:35)
[2017-11-23 15:34] VITALS: BP 145/88; PULSE 78; RESP 18; TEMP 36.3; O2SAT 100
--- NOTE | 2017-11-23 16:00 | CHAPLAIN ---
Type of Pastoral Visit ___ Initial Visit _x__ Follow-up Visit ___ On-call Visit ___ General Patient Visit ___ Spiritual Assessment ___ Family Conference ___ Bereavement ___ Rapid Response ___ Code Blue ___ Other (describe below) Pastoral Care Referral From _x__ Patient ___ Family ___ Nurse ___ Physician ___ Physics Technical Officer ___ Power Plant Engineer ___ Other (describe below) Sacrament/Intervention _x__ Active listening ___ Anointing ___ Denominational ___ Bereavement ___ Communion ___ Yaneth exploration ___ ___ Life review _x__ Prayer ___ Reconciliation ___ Sacrament of Sick ___ Supportive presence ___ Wedding ___ Other (describe below) Pastoral Comments
--- NOTE | 2017-11-23 17:56 | NURSING ---
Dr. Bach reviewed AM labs and INR, decreased Coumadin to 4mg daily, pt updated.
[2017-11-23] MEDS: Gabapentin 100 MG Capsule 200 MG PO (21:16)
[2017-11-23] MEDS: Atorvastatin Calcium 20 MG Tablet PO (21:16)
[2017-11-24] MEDS: Menthol/Lanolin/Calamine/Znox 113 GM Tube 1 APPLIC TOPICAL ×3 (05:52→20:29)
[2017-11-24] MEDS: Iron Polysaccharide Complex 150 MG CAPSULE PO (05:53)
[2017-11-24] MEDS: Carvedilol 25 MG Tablet PO ×2 (05:53→17:46)
[2017-11-24] MEDS: Aspirin 81 MG TAB.CHEW PO (05:53)
[2017-11-24] MEDS: Furosemide 40 MG Tablet PO ×2 (05:54→17:46)
[2017-11-24] MEDS: Magnesium Oxide 400 MG Tablet PO (05:54)
[2017-11-24] MEDS: amLODIPine 5 MG Tablet PO (05:54)
[2017-11-24] MEDS: Famotidine 20 MG Tablet PO ×2 (05:54→17:46)
[2017-11-24 10:20] VITALS: O2SAT 98
--- NOTE | 2017-11-24 10:43 | CASEMGMT ---
Brief interview for mental status (BIMS) and resident mood interview (PHQ-9) completed on this day. BIMS score 1515. PHQ-9 score 08/04
--- NOTE | 2017-11-24 10:58 | CASEMGMT ---
Social Work Speaking with resident and resident family. Confirming discharge planning for 11/27/17. Resident plans to discharge to home where resident family plans to provide 24hr care for resident. Resident also meeting with [facility] [facility] today at 12:30 to look into those options. Resident new on oxygen and will have home oxygen test completed on . Resident requesting for oxygen to be set up through [facility], if resident qualifies for home oxygen. Resident reporting to have all other needed durable medical equipment including a walker. Resident agreeable to recommendation for resident to have home health services for physical and occupational therapy as well as a home health aide and skilled nurse. Resident requesting for home health services to be set up through [facility] ([facility]). Resident daughter plans to provide transportation home for resident at time of discharge. Support given. [facility] This forensic social worker making referral for physical and occupational therapy as well as a home health aide and skilled nurse. Proposed discharge date: 11/27/17 PLAN: Discharge home with 24hr care and home health services. Will continue to follow. Nay BARBA, GUARD [employer]
[2017-11-24] MEDS: Gabapentin 100 MG Capsule PO (11:39)
[2017-11-24 15:17] VITALS: PULSE 71; RESP 18; O2SAT 98
[2017-11-24 16:00] VITALS: BP 114/61; PULSE 78; RESP 18; TEMP 36.7; O2SAT 99
--- NOTE | 2017-11-24 17:47 | NURSING ---
Addendum entered by Phyllis Edwards 11/25/17 08:08: CXR results reviewed by VICTOR M Shell at this time. Original Note: Dr. Bach updated on resp assessment today, crackles in bilat bases and expiratory wheezes throughout, N.O. for CXR, pt updated.
--- NOTE | 2017-11-24 19:25 | RAD_ITS ---
STUDY: X-RAY CHEST REASON FOR EXAM: Female, 82 years old. Shortness of breath. TECHNIQUE: PA and lateral views of the chest. COMPARISON: October 22, 2017. FINDINGS: The lungs are hyperexpanded. There is chronic interstitial changes at both lung bases suggesting fibrosis. There is no new infiltrate or mass. There is clearing of the left upper and right lower lobe infiltrate seen on the prior study. There is no demonstrated pleural abnormality. The heart is normal in size. There are evidence of median sternotomy and cardiac valvuloplasty. There is a stable cardiac pacemaker. Normal mediastinum and kathy. Normal visualized pulmonary arteries. There is atherosclerotic calcification of the aortic arch with tortuosity. There are diffuse degenerative changes of the visualized thoracic spine. Normal visualized ribs, clavicles, and shoulders. There is no demonstrated abnormality of the visualized soft tissue structures of the upper abdomen. RAD/Chest PA and Lateral IMPRESSION: Clearing at the right lung base and left upper lobe when compared to prior study. The remainder of the findings are stable. Electronically Signed: Santiago Guthrie DO at 20:17 EDT Tel [phone], Service support ,
[2017-11-24] MEDS: Atorvastatin Calcium 20 MG Tablet PO (20:30)
[2017-11-24] MEDS: Gabapentin 100 MG Capsule 200 MG PO (20:30)
[2017-11-25] MEDS: Menthol/Lanolin/Calamine/Znox 113 GM Tube 1 APPLIC TOPICAL ×3 (05:25→20:37)
[2017-11-25] MEDS: Carvedilol 25 MG Tablet PO ×2 (05:26→17:55)
[2017-11-25] MEDS: Iron Polysaccharide Complex 150 MG CAPSULE PO (05:26)
[2017-11-25] MEDS: Famotidine 20 MG Tablet PO ×2 (05:26→17:55)
[2017-11-25] MEDS: amLODIPine 5 MG Tablet PO (05:26)
[2017-11-25] MEDS: Aspirin 81 MG TAB.CHEW PO (05:26)
[2017-11-25] MEDS: Furosemide 40 MG Tablet PO ×2 (05:27→17:55)
[2017-11-25] MEDS: Magnesium Oxide 400 MG Tablet PO (05:27)
[2017-11-25] MEDS: Gabapentin 100 MG Capsule PO (12:07)
[2017-11-25 16:00] VITALS: BP 121/63; PULSE 72; RESP 18; TEMP 36.1; O2SAT 100
[2017-11-25] MEDS: Atorvastatin Calcium 20 MG Tablet PO (20:36)
[2017-11-25] MEDS: Gabapentin 100 MG Capsule 200 MG PO (20:36)
[2017-11-25 20:39] VITALS: PULSE 72; RESP 18; O2SAT 99
[2017-11-26] MEDS: Furosemide 40 MG Tablet PO ×2 (05:46→16:37)
[2017-11-26] MEDS: Aspirin 81 MG TAB.CHEW PO (05:46)
[2017-11-26] MEDS: Magnesium Oxide 400 MG Tablet PO (05:46)
[2017-11-26] MEDS: Carvedilol 25 MG Tablet PO ×2 (05:46→16:37)
[2017-11-26] MEDS: Iron Polysaccharide Complex 150 MG CAPSULE PO (05:46)
[2017-11-26] MEDS: amLODIPine 5 MG Tablet PO (05:46)
[2017-11-26] MEDS: Menthol/Lanolin/Calamine/Znox 113 GM Tube 1 APPLIC TOPICAL ×3 (05:48→20:38)
[2017-11-26 06:10] LABS: International Normalized Ratio 2.7; Prothrombin Time (Protime)PT. 28.8 SECONDS (11.7-14.9)
[2017-11-26] MEDS: Famotidine 20 MG Tablet PO ×2 (07:13→16:37)
[2017-11-26 07:42] VITALS: O2SAT 99
[2017-11-26] MEDS: Gabapentin 100 MG Capsule PO (10:44)
--- NOTE | 2017-11-26 10:47 | MDS.RN ---
Information for the mds was obtained from review of the clinical record, interview of resident, staff, and direct observation of resident's care.
--- NOTE | 2017-11-26 10:56 | MDS.RN ---
Pain interview for ERYN 11/27/17 completed.
--- NOTE | 2017-11-26 15:08 | NURSING ---
Oxygen test: Patient's oxygen level 99% on 4L at rest, oxygen level 85% on RA while at rest and 83% on RA during ambulation.
--- NOTE | 2017-11-26 15:22 | CASEMGMT ---
Social Work Nursing completed home oxygen test at this time and pt does qualify for home O2. Referral call placed to [facility] and referral faxed. [facility] to return call to confirm ability to supply pt needs. SW will follow. FREDA Pantoja
[2017-11-26 16:00] VITALS: BP 133/77; PULSE 72; RESP 20; TEMP 37.1; O2SAT 100
[2017-11-26] MEDS: Gabapentin 100 MG Capsule 200 MG PO (20:37)
[2017-11-26] MEDS: Atorvastatin Calcium 20 MG Tablet PO (20:38)
[2017-11-27] MEDS: Famotidine 20 MG Tablet PO (06:21)
[2017-11-27] MEDS: amLODIPine 5 MG Tablet PO (06:21)
[2017-11-27] MEDS: Aspirin 81 MG TAB.CHEW PO (06:21)
[2017-11-27] MEDS: Carvedilol 25 MG Tablet PO (06:21)
[2017-11-27] MEDS: Menthol/Lanolin/Calamine/Znox 113 GM Tube 1 APPLIC TOPICAL (06:21)
[2017-11-27] MEDS: Magnesium Oxide 400 MG Tablet PO (06:21)
[2017-11-27] MEDS: Iron Polysaccharide Complex 150 MG CAPSULE PO (06:22)
[2017-11-27] MEDS: Furosemide 40 MG Tablet PO (06:23)
[2017-11-27 07:15] VITALS: O2SAT 99
[2017-11-27 07:19] VITALS: PULSE 78; O2SAT 95
--- NOTE | 2017-11-27 10:01 | CASEMGMT ---
Social Work Pt requiring home O2. Order and referral information faxed to [facility] per pt choice. Graciela from [facility] called SW and pt has been approved and someone will bring a portable tank to pt room shortly. Pt informed and expresses understanding. Pt states her dgt Teresa will be taking her home. With pt permission phone call to Teresa and informed that O2 tank should arrive within the hour and pt will be ready for d/c after that time. FREDA Pantoja
--- NOTE | 2017-11-27 11:37 | NURSING ---
Discharge instructions reviewed with resident and daughter, patient's oxygen supplies delivered and home health nurse here to visit patient before discharge.
[2017-11-27 12:34] VITALS: BP 124/67; PULSE 67; RESP 20; TEMP 36.9; O2SAT 99
== END 2017-11-27 12:00 | disposition home or self-care (01) | DRG 947 ==
PROVIDERS: Admitting Provider Family Medicine Geriatric Medicine; Family Provider Family Medicine; PCP Family Medicine; Visit Provider Family Medicine Geriatric Medicine
DX: R53.81 Other malaise (principal); I50.33 Acute on chronic diastolic (congestive) heart failure; J18.9 Pneumonia, unspecified organism; J96.21 Acute and chronic respiratory failure with hypoxia; I25.10 Atherosclerotic heart disease of native coronary artery without angina pectoris; K21.9 Gastro-esophageal reflux disease without esophagitis; I11.0 Hypertensive heart disease with heart failure; E87.6 Hypokalemia; E78.5 Hyperlipidemia, unspecified; I48.0 Paroxysmal atrial fibrillation; Z79.899 Other long term (current) drug therapy; Z95.1 Presence of aortocoronary bypass graft; Z87.891 Personal history of nicotine dependence; I25.5 Ischemic cardiomyopathy; Z86.73 Personal history of transient ischemic attack (TIA), and cerebral infarction without residual deficits; Z95.3 Presence of xenogenic heart valve; G25.81 Restless legs syndrome; T81.4XXD Infection following a procedure, subsequent encounter; T84.52XD Infection and inflammatory reaction due to internal left hip prosthesis, subsequent encounter; D50.9 Iron deficiency anemia, unspecified; Z95.810 Presence of automatic (implantable) cardiac defibrillator
CPT/HCPCS: 36415; 71045; 71046; 74018; 80048; 81001; 83880; 85025; 85610; 87086; 94002; 94003; 94640; 94667; 94668; 97110; 97116; 97162; 97166; 97530; 97535; 97802; A4216; J1940

== ENCOUNTER → 2017-10-22 23:01 | Outpatient (CLI) | payer MEDICARE, OTHER, SELFPAY ==
--- NOTE | 2017-10-22 23:07 | CT_ITS ---
STUDY: CT ABDOMEN AND PELVIS WITH CONTRAST REASON FOR EXAM: Female, 82 years old. Obstruction RADIATION DOSAGE (If Supplied By Facility): CTDIvol = ( 16.16 ) mGy, DLP = ( 807.11 ) mGycm TECHNIQUE: Transaxial images were obtained from the dome of the diaphragm to the symphysis pubis with oral contrast. 100 ml of Isovue 300 contrast was administered. Sagittal and coronal images were reconstructed. Individualized dose optimization techniques were used for this CT. COMPARISON: 10/08/2017 FINDINGS: Fibrotic lung changes with evolving acute right basilar alveolitis. Prosthetic aortic valve. Pacemaker leads. Median sternotomy wires. Left-sided diaphragmatic hernia containing stomach and small bowel. Left pleural effusion. Normal liver. There are surgical clips in the gallbladder fossa consistent with a prior cholecystectomy. Normal spleen. Normal pancreas. Normal bilateral adrenal glands. Normal right kidney. Normal left kidney. Normal visualized stomach. Normal small intestine. There are multiple colonic diverticula consistent with diverticulosis. The appendix is not seen. Probable appendectomy. Normal abdominal aorta. Normal inferior vena cava. Normal retroperitoneum. Normal urinary bladder. 17 mm hematoma in the right anterior abdominal wall. There are diffuse degenerative changes of the visualized lumbar spine. Left hip arthroplasty. CT/Abdomen/Pelvis WITH Contrast IMPRESSION: No evidence of urinary or bowel obstruction. Evolving right basilar alveolitis and left pleural effusion. Electronically Signed: Recee Polk MD at 7:35 EDT Tel , Service support ,
== END ==
PROVIDERS: Family Provider Family Medicine; PCP Family Medicine; Visit Provider Family Medicine Geriatric Medicine
DX: J90 Pleural effusion, not elsewhere classified (principal)
CPT/HCPCS: 74177; Q9967

== ENCOUNTER → 2017-12-08 22:36 | Outpatient (CLI) | payer MEDICARE, OTHER, SELFPAY | PROVIDERS: Family Provider Family Medicine; PCP Family Medicine; Visit Provider Nurse Practitioner Acute Care | DX: G47.33 Obstructive sleep apnea (adult) (pediatric) (principal) | CPT/HCPCS: 95810 ==

== ENCOUNTER → 2017-12-18 10:21 | Outpatient (CLI) | payer MEDICARE, OTHER, SELFPAY ==
--- NOTE | 2017-12-18 10:38 | RAD_ITS ---
STUDY: X-RAY CHEST REASON FOR EXAM: Female, 82 years old. CHF TECHNIQUE: Frontal view of the chest COMPARISON: 11/24/2017 FINDINGS: There are stable chronic increased interstitial markings noted throughout the lungs. The lungs are otherwise clear. There are no pleural effusions. There is no pneumothorax. The heart is normal in size. Again noted is a pacemaker. The patient is status post sternotomy. RAD/Chest PA and Lateral IMPRESSION: No acute thoracic pathology. Electronically Signed: Sukh Arceo, at 20:35 EDT Tel , Service support ,
[2017-12-18 12:25] LABS: Absolute Lymphocyte Count 0.58 X10^3/ul (0.83-4.51); Absolute Neutrophil Count 5.2 X10^3/uL (2.0-7.7); Basophil# 0.02 X10^3/uL; Basophil% 0.3 % (0-1); Eosinophil# 0.49 X10^3/uL; Eosinophils% 7.1 % (0-5); Hematocrit 30.8 % (37-47); Hemoglobin 9.2 g/dl (12.0-15.0); Lymphocyte # 0.58 X10^3/ul (4.0); Lymphocyte % 8.4 % (19-41); Mean Corp Hgb Conc 29.9 g/gl (32-36); Mean Corpuscular Hgb 28.1 pg (27.0-32.0); Mean Corpuscular Volume 94.2 fL (81-99); Monocyte# 0.59 X10^3/uL; Monocyte% 8.6 % (0-10); Neutrophil # 5.18 X10^3/uL (2.7-7.7); Neutrophil % 75.5 % (47-70); Platelet Count 276 K/mm3 (150-450); RBC Distribution Width CV 16.7 % (11.6-14.6); RBC Distribution Width SD 58.2 fl (35.1-43.9); Red Blood Count 3.27 M/mm3 (4.2-5.4); White Blood Count 6.9 K/mm3 (4.4-11.0)
[2017-12-18 12:27] LABS: Differential Indicated SCAN CRITERIA MET; POSITIVE COUNT NO; POSITIVE DIFFERENTIAL YES; POSITIVE MORPHOLOGY NO
[2017-12-18 12:42] LABS: Vitamin B12 631 pg/mL (211-911)
[2017-12-18 12:46] LABS: International Normalized Ratio 1.9; Prothrombin Time (Protime)PT. 22.1 SECONDS (11.7-14.9)
[2017-12-18 12:47] LABS: ALB/GLOB Ratio 0.7 RATIO (0.9-2.4); AST(SGOT) 18 U/L (15-37); Alanine Aminotransfer ALT/SGPT 16 U/L (13-56); Albumin, Serum 2.8 g/dL (3.2-5.0); Alkaline Phosphatase 89 U/L (45-117); Anion Gap 9 (5-15); BUN 9 mg/dL (7-18); BUN/Creat Ratio 13.7 RATIO (10-20); Calcium,Total 8.9 mg/dL (8.5-10.1); Chloride 101 mmol/L (98-107); Creatinine, Serum 0.66 mg/dL (0.55-1.02); EST Glomerular Filtration Rate 92 mL/min (>60); Est Glom Filt Rate - Afr Amer 111 mL/min (>60); Ferritin 260 ng/mL (8-252); Glucose 112 mg/dL (74-106); Potassium 4.3 mmol/L (3.5-5.1); Protein, Total 6.8 g/dL (6.4-8.2); Sodium Level 141 mmol/L (136-145)
[2017-12-18 12:55] LABS: BNP,B-Type NATRIURETIC PEPTIDE 269.2 pg/mL (0-100)
[2017-12-18 12:57] LABS: Anisocytosis 1+; Platelet Estimate ADEQUATE (ADEQ)
== END ==
LOC: MFPLAB 10:22 → MTRAD 10:30
PROVIDERS: Family Provider Family Medicine; PCP Family Medicine; Visit Provider Family Medicine
DX: I50.9 Heart failure, unspecified (principal); D64.9 Anemia, unspecified
CPT/HCPCS: 36415; 71046; 80053; 82607; 82728; 82746; 83880; 85025; 85610

== ENCOUNTER 2017-12-26 13:45 | Inpatient (IN) | payer MEDICARE, OTHER, SELFPAY ==
[2017-12-26] VITALS (10 sets, daily range): BP systolic 123–136; BP diastolic 56–80; PULSE 74–93; RESP 18–32; TEMP 36.8–37.2; O2SAT 91–99; BMI 27.2; BMI 26.1
[2017-12-26] MEDS: Ipratropium/Albuterol Sulfate 3 ML AMPUL.NEB INHALATION ×2 (15:21→19:34)
--- NOTE | 2017-12-26 15:28 | ED.DCSUM_ITS ---
- ER Visit Summary Date of Service: 12/26/17 Chief Complaint: Shortness of breath History of Present Illness: The patient is a 82 F presenting with shortness of breath for the past several days. She has had a cough productive of yellow sputum and she feels generally weak. She wears 3-4 L of oxygen continuously at home. She has no urinary symptoms or abdominal pain at this time. She lives alone but has nearly 24 hour care from family members. Physical Examination: Vitals are within normal limits except for a pulse ox of 86% on her home amount of oxygen. No fever. She appears elderly and frail in general. His members are dry. Neck is supple. Heart tones are regular and without murmur. Breath sounds are diminished at both bases. Abdomen is soft and nontender. She has 2+ symmetric lower extremity edema but strong pulses in both feet. No focal or lateralizing neuro findings. Speech is clear. Test Results: CBC reveals slight anemia. BNP slightly elevated. Chest x-ray reveals Progression of pulmonary fibrosis. Superimposed CHF is difficult to exclude since there is new right pleural fluid and mild pulmonary vascular congestion. Emergency Department Course and Treatment: X-ray reveals CHF, possible underlying pneumonia, there is new right pleural effusion. She is hypoxic on her home amount of oxygen. I therefore do feel she meets criteria for admission. I discussed the case with the hospitalist and we elected to administer antibiotics as well. She was admitted to PCU. Treatment Plan: Admit to PCU Disposition: Admit to PCU Impression: Initial encounter, congestive heart failure exacerbation, hypoxia This note was generated with [employer] dictation software. It may contain incorrect words, spelling, and punctuation that were not noted in review of the chart prior to signing ED Disposition - Plan for ED Patient: Disposition: Acute Care Hospital [facility] Chief Complaint: Shortness of Breath
[2017-12-26 15:52] LABS: Absolute Lymphocyte Count 0.81 X10^3/ul (0.83-4.51); Absolute Neutrophil Count 6.4 X10^3/uL (2.0-7.7); Basophil# 0.04 X10^3/uL; Basophil% 0.5 % (0-1); Eosinophil# 0.31 X10^3/uL; Eosinophils% 3.7 % (0-5); Hematocrit 32.5 % (37-47); Hemoglobin 9.7 g/dl (12.0-15.0); Lymphocyte # 0.81 X10^3/ul (4.0); Lymphocyte % 9.7 % (19-41); Mean Corp Hgb Conc 29.8 g/gl (32-36); Mean Corpuscular Volume 93.9 fL (81-99); Mean Platelet Vol. 10.3 fl (6.2-12.0); Monocyte# 0.78 X10^3/uL; Monocyte% 9.4 % (0-10); Neutrophil # 6.37 X10^3/uL (2.7-7.7); Neutrophil % 76.7 % (47-70); Platelet Count 278 K/mm3 (150-450); RBC Distribution Width CV 16.7 % (11.6-14.6); RBC Distribution Width SD 56.7 fl (35.1-43.9); Red Blood Count 3.46 M/mm3 (4.2-5.4); White Blood Count 8.3 K/mm3 (4.4-11.0)
[2017-12-26 15:54] LABS: POSITIVE COUNT NO; POSITIVE DIFFERENTIAL NO; POSITIVE MORPHOLOGY NO
[2017-12-26 16:00] LABS: Anion Gap 5 (5-15); BUN 14 mg/dL (7-18); BUN/Creat Ratio 20.7 RATIO (10-20); Calcium,Total 8.9 mg/dL (8.5-10.1); Chloride 103 mmol/L (98-107); Creatinine, Serum 0.68 mg/dL (0.55-1.02); EST Glomerular Filtration Rate 89 mL/min (>60); Est Glom Filt Rate - Afr Amer 107 mL/min (>60); Estimated Creatinine Clearance 35.49 ml/min; Glucose 117 mg/dL (74-106); Potassium 5.7 mmol/L (3.5-5.1); Sodium Level 137 mmol/L (136-145)
[2017-12-26 16:06] LABS: BNP,B-Type NATRIURETIC PEPTIDE 313.4 pg/mL (0-100)
[2017-12-26 16:34] LABS: International Normalized Ratio 1.6; Prothrombin Time (Protime)PT. 19.5 SECONDS (11.7-14.9)
--- NOTE | 2017-12-26 17:48 | NURSING ---
CALLED [facility] [place] TO SEND PT.
[2017-12-26] MEDS: levoFLOXacin IV 500 MG/100 ML BAG 100 MG IV (17:54)
--- NOTE | 2017-12-26 18:10 | PCM.HP.STD ---
Problem List (1) HCAP (healthcare-associated pneumonia) Status: Acute (2) Paroxysmal atrial fibrillation Status: Chronic (3) Dyspnea on exertion Status: Chronic (4) Hyperlipidemia Status: Chronic Qualifiers: Hyperlipidemia type: pure hypercholesterolemia Qualified Code(s): E78.00 - Pure hypercholesterolemia, unspecified; E78.00 - Pure hypercholesterolemia, unspecified; E78.00 - Pure hypercholesterolemia, unspecified; E78.0 - Pure hypercholesterolemia (5) HTN (hypertension) Status: Chronic Qualifiers: Hypertension type: essential hypertension Qualified Code(s): I10 - Essential (primary) hypertension History of Present Illness Date of Admission: 12/26/17 Chief Complaint: SOB The patient is a 82 year old F with a significant h/o a-fib, ischemic cardiomyopathy with diastolic dysfunction and right sided systolic dysfunction on echo, pulm htn, pulmonary fibrosis and recent pneumonia who presents from home with increasing SOB, weakness, and JIMÉNEZ. Her daughters rotate taking care of her and have noticed a significant decline over the last week. She has not had a fever, but she has had a productive cough. She denies chest pain and has not had any edema, or recent weight gain. CXR in the ER demonstrated worsening effusion with diminished air spaces and vascular congestion and pulmonary fibrosis. Past Medical History Past Medical History (Chronic Problems): Chronic Problems (Last Reviewed 11/20/17 @ 18:03 by Graciela Andrew NP-C) Pulmonary hypertension (Chronic) RVSP 66 mmHg Cardiomyopathy (Chronic) Ischemic cardiomyopathy (Chronic) Paroxysmal atrial fibrillation (Chronic) 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) Hyperthyroidism (Chronic) Hypokalemia (Chronic) Atherosclerotic heart disease of [place] coronary artery without angina pectoris (Chronic) CABG x1 RANDLE-LAD x/Aortic Valve Replacement Left bundle-branch block (Chronic) Nonrheumatic aortic valve stenosis (Chronic) HTN (hypertension) (Chronic) Other chest pain (Chronic) Presence of aortocoronary bypass graft (Chronic) Dyspnea on exertion (Chronic) Fatigue (Chronic) Chronic pulmonary heart disease (Chronic) CVA (cerebral infarction) (Chronic) Hyperlipidemia (Chronic) Paroxysmal ventricular tachycardia (Chronic) HTN (hypertension) (Chronic) Hypothyroidism associated with surgical procedure (Chronic) had a subtotal thyroidectomy for goiter Hemorrhoids (Chronic) Restless leg syndrome (Chronic) TIA (transient ischemic attack) (Chronic) multiple History of aortic valve replacement with bioprosthetic valve (Chronic) Medical History: Medical History (Last Reviewed 11/20/17 @ 18:03 by Graciela Andrew NP-C) Ischemic cardiomyopathy (Chronic) I25.5 Paroxysmal atrial fibrillation (Chronic) I48.0 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) Z95.810 Hyperthyroidism (Chronic) E05.90 Hypokalemia (Chronic) E87.6 Atherosclerotic heart disease of [place] coronary artery without angina pectoris (Chronic) I25.10 CABG x1 RANDLE-LAD x/Aortic Valve Replacement Left bundle-branch block (Chronic) I44.7 Nonrheumatic aortic valve stenosis (Chronic) I35.0 HTN (hypertension) (Chronic) I10 Other chest pain (Chronic) R07.89 Dyspnea on exertion (Chronic) R06.09 Fatigue (Chronic) R53.83 Chronic pulmonary heart disease (Chronic) I27.9 CVA (cerebral infarction) (Chronic) I63.9 Hyperlipidemia (Chronic) E78.5 Paroxysmal ventricular tachycardia (Chronic) I47.2 HTN (hypertension) (Chronic) I10 Neck swelling (Acute) R22.1 left supraclavicular fossa and left neck Hypothyroidism associated with surgical procedure (Chronic) E89.0 had a subtotal thyroidectomy for goiter Hemorrhoids (Chronic) K64.9 Restless leg syndrome (Chronic) TIA (transient ischemic attack) (Chronic) multiple History of aortic valve replacement with bioprosthetic valve (Chronic) Z95.4 Allergies adhesive Allergy (Verified 11/20/17 09:14) Unknown etodolac Allergy (Verified 11/20/17 09:14) Unknown nitroglycerin Allergy (Verified 11/20/17 09:14) Unknown oxycodone HCl [From Percocet] Allergy (Verified 11/20/17 09:14) Unknown phenobarbital Allergy (Verified 11/20/17 09:14) Unknown tolmetin sodium [From Tolectin] Allergy (Verified 11/20/17 09:14) Unknown venlafaxine Allergy (Verified 11/20/17 09:14) Unknown nitropatch Allergy (Uncoded 11/20/17 09:14) unknown Home Medications: Ambulatory Orders Medication Instructions Recorded Magnesium Oxide [Mag-Ox 400] 400 mg PO DAILY 09/17/15 Nitroglycerin [Nitrostat] 0.4 mg SUBLINGUAL Q5M PRN 09/20/15 gabapentin 100 mg capsule 200 mg PO BID 05/05/17 amlodipine 5 mg tablet 5 mg PO DAILY 06/23/17 atorvastatin 40 mg tablet 20 mg PO QHS tab 06/23/17 Carvedilol [Coreg (Beta Gene)] 25 mg PO BID 07/06/17 Cholecalciferol (Vitamin D3) 1,000 unit PO DAILY 07/06/17 [Vitamin D3] Albuterol Aerosols [Ventolin 2.5 mg INHALATION Q4H PRN PRN 09/30/17 Aerosols] Famotidine [Pepcid] 20 mg PO BID 09/30/17 Aspirin E.C. [Ecotrin] 81 mg PO DAILY 10/11/17 Furosemide [Lasix] 40 mg PO BID@1000,1800 10/11/17 Albuterol Aerosols [Ventolin 2.5 mg INHALATION Q2H PRN PRN 11/17/17 Aerosols] vial.neb. Amlodipine [Norvasc] 5 mg PO DAILY tab 11/17/17 Aspirin [Aspirin, Baby] 81 mg PO DAILY tab.chew 11/17/17 Atorvastatin Calcium [Lipitor] 20 mg PO QHS tab 11/17/17 Carvedilol [Coreg (Beta Gene)] 25 mg PO BID tab 11/17/17 Escitalopram Oxalate [Lexapro] 10 mg PO DAILY #30 tab 11/17/17 Famotidine [Pepcid] 20 mg PO BID tab 11/17/17 Furosemide [Lasix] 40 mg PO BID #30 tab 11/17/17 Gabapentin [Neurontin] 100 mg PO 1200 cap 11/17/17 Gabapentin [Neurontin] 200 mg PO QHS cap 11/17/17 Iron Polysaccharide Complex 150 mg PO DAILY #30 cap 11/17/17 [Ferrex 150] Magnesium Oxide [Mag-Ox 400] 400 mg PO DAILY tab 11/17/17 Menthol/Lanolin/Calamine/Znox 1 applic TOPICAL TID tube 11/17/17 [Calmoseptine Ointment] Nitroglycerin [Nitrostat] 0.4 mg SUBLINGUAL Q5M PRN tab 11/17/17 Potassium Chloride [K-Dur] 20 meq PO TID #90 tab 11/17/17 Warfarin [Coumadin] 2 mg PO DAILY@1700 #30 tab 11/17/17 Warfarin [Coumadin] 2.5 mg PO DAILY@1700 #30 tab 11/17/17 Surgical History: Surgical History (Last Reviewed 11/20/17 @ 18:03 by BETTIE Shah) History of hip replacement (Resolved) Z96.649 Presence of aortocoronary bypass graft (Chronic) Z95.1 H/O aortic valve replacement Z95.2 21 mm Magna Ease Pericardial Valve H/O right and left heart catheterization Onset Date: 09/24/15 Z98.890 History of appendectomy Z90.49 History of hysterectomy Z98.890, Z90.710 History of left heart catheterization (LHC) Z98.890 2000, 2006, 2009, 2013. History of total right knee replacement (TKR) Z96.651 Hx of CABG Z95.1 CABG x1 RANDLE-LAD x/Aortic Valve Replacement Hx of cholecystectomy Z98.890, Z90.49 aortaplasty with pericardial patch closure Onset Date: 10/26/15 at Surgical History: appendectomy, cholecystectomy, coronary bypass surgery, hysterectomy - She still has ovaries and fallopian tubes. The hysterectomy was done for dysfunctional uterine bleeding., pacemaker implantation, total hip arthroplasty, - - Bioprosthetic aortic valve replacement with CABG in October 2015 Psychiatric History: No pertinent psych hx [employer] TY[employer]GR[employer]HER History: dysfunctional uterine bld Smoking Status: Never smoker - *Family History Maternal Family History: Family History (Last Reviewed 11/20/17 @ 18:03 by BETTIE Shah) Father Myocardial infarction, Onset Age: 45 Hypertension Heart disease Mother Myocardial infarction, Onset Age: 64 CAD (coronary artery disease) Hypertension Brother Myocardial infarction, Onset Age: 59 Heart disease CAD (coronary artery disease) CVA (cerebral vascular accident) Hypertension Sister CAD (coronary artery disease) Hypertension Daughter Diabetes HLD (hyperlipidemia) Son Hypertension HLD (hyperlipidemia) CAD (coronary artery disease) History Items: Heart Disease, Hypertension Paternal Family History: Family History (Last Reviewed 11/20/17 @ 18:03 by BETTIE Shah) Father Myocardial infarction, Onset Age: 45 Hypertension Heart disease Mother Myocardial infarction, Onset Age: 64 CAD (coronary artery disease) Hypertension Brother Myocardial infarction, Onset Age: 59 Heart disease CAD (coronary artery disease) CVA (cerebral vascular accident) Hypertension Sister CAD (coronary artery disease) Hypertension Daughter Diabetes HLD (hyperlipidemia) Son Hypertension HLD (hyperlipidemia) CAD (coronary artery disease) History Items: High Cholesterol, Heart Disease Review of Systems Constitutional: Reports: Weakness. Denies: Anorexia, Chills, Fever, Weight Change Eyes: Denies: Blurred vision, Double vision HEENT: Denies: Head Aches, Sinus Congestion, Sinus Drainage Cardiovascular: Denies: Chest Pain, Palpitations Respiratory: Reports: Cough, Shortness of Breath, Shortness of breath upon exertion Gastrointestinal: Denies: Abdominal Pain Genitourinary: Denies: Dysuria Skin: Denies: Rash, Wounds VTE Information - Inpt Only VTE Present on Admission: No Patient Problems: Active and Suspected Problems (Last Reviewed 11/20/17 @ 18:03 by Graciela Andrew NP-C) HCAP (healthcare-associated pneumonia) (Acute) - Physical Exam General: Alert, Oriented x3, Cooperative, No apparent distress HEENT: Atraumatic, EOMI, Normocephalic Oral: Dry Mucosa Neck: Supple, No JVD Lungs: Normal air movement, Diminished, Rhonchi Cardiovascular: Regular rate, Regular Rhythm Abdomen: Soft, Non Tender, Non-Distended, No Hepato-splenomegaly Extremities: No edema Skin: No rashes, No breakdown Psych/Mental Status: Normal Affect, Appropriate Vital Signs Temp Pulse Resp BP Pulse Ox 99.0 F 93 24 H 136/80 H 91 12/26/17 14:01 12/26/17 17:48 12/26/17 17:48 12/26/17 17:48 12/26/17 17:48 Oxygen Flow Rate (L/min) 2 Oxygen Delivery Method Nasal Cannula Weight: 148 lb 12.992 oz Body Mass Index (BMI) 27.2 Finger Stick Blood Glucose 156 Laboratory Tests Past 24 Hrs 12/26/17 12/26/17 12/26/17 15:20 15:20 15:20 WBC 8.3 RBC 3.46 L Hgb 9.7 L Hct 32.5 L MCV 93.9 MCH 28.0 MCHC 29.8 L RDW 16.7 H RDW Differential 56.7 H Plt Count 278 MPV 10.3 Immature Gran % (Auto) 0.000 Neut % (Auto) 76.7 H Lymph % (Auto) 9.7 L [place] % (Auto) 9.4 Eos % (Auto) 3.7 Baso % (Auto) 0.5 Absolute Neuts (auto) 6.4 Absolute Lymphs (auto) 0.81 L Total Counted Not Reportable PT INR Sodium 137 Potassium 5.7 H Chloride 103 Carbon Dioxide 29.0 Anion Gap 5 BUN 14 Creatinine 0.68 Estim Creat Clear Calc 35.49 Est GFR (MDRD) Af Amer 107 Est GFR (MDRD) Non-Af 89 BUN/Creatinine Ratio 20.7 H Glucose 117 H Lactic Acid Calcium 8.9 Troponin I 0.021 B-Natriuretic Peptide 313.4 H 12/26/17 12/26/17 15:20 15:20 WBC RBC Hgb Hct MCV MCH MCHC RDW RDW Differential Plt Count MPV Immature Gran % (Auto) Neut % (Auto) Lymph % (Auto) [place] % (Auto) Eos % (Auto) Baso % (Auto) Absolute Neuts (auto) Absolute Lymphs (auto) Total Counted PT 19.5 H INR 1.6 Sodium Potassium Chloride Carbon Dioxide Anion Gap BUN Creatinine Estim Creat Clear Calc Est GFR (MDRD) Af Amer Est GFR (MDRD) Non-Af BUN/Creatinine Ratio Glucose Lactic Acid 2.0 Calcium Troponin I B-Natriuretic Peptide Assessment/Plan All Active Problems (Last Reviewed 11/20/17 @ 18:03 by Graciela Andrew, LAURENCE-C) HCAP (healthcare-associated pneumonia) (Acute) History of hip replacement (Resolved) Surgical site infection (Resolved) multilobar HCAP (Acute) Acute respiratory failure with hypoxia (Acute) CHF (congestive heart failure) (Acute) Neck swelling (Acute) Accelerated hypertension (Resolved) Chest pain (Resolved) DVT of lower extremity (deep venous thrombosis) (Resolved) Nephrolithiasis (Resolved) 1. SOB/Weakness/HCAP and progression of her pulmonary fibrosis/COPD - Difficult to discern the exact etiology of her symptoms - Will start on antibiotics, she received levaquin in the ER, switched to zosyn/cipro - Will do duonebs and consult pulm for recommendations on pulmonary fibrosis - I discussed with the family and the patient about discharge planning and they are agreeable to talk with palliative - Will hold of on IVF at the moment and she is doing well and is not septic - Her pro-BNP was slightly elevated though not really above her baseline - Lactate was 2 on admission and her troponin was negative - c/w with her O2, she is usually on 2-3 L NC at home - CXR in the am 2. Ischemic cardiomyopathy with diastolic CHF/A-fib/CAD s/p CABG and aortic valve repair/HLD - C/w coumadin and watch INR while on abx - Will hold lasix at the moment until her condition declares itself one way or the other - Tele monitoring - c/w coreg, lipitor 3. GERD - c/w pepcid 4. Depression/Anxiety - stable - c/w celexa 5. Hyperkalemia - Will give insulin and glucose to lower - Monitor electrolytes DVT: Lovenox Diet: Cardiac Code: DNR Dispo: PCU Code Visit Inpatient E&M: 13166 Init Hosp L3 Procedures: 19169 Advncd Care Plan 30 Min - discussed advance care planning for 20 minutes
[2017-12-26 19:36] LABS: Reflex Lactate? Y
[2017-12-26] MEDS: Dextrose 50%-Water 25 GM/50 ML DISP.SYRIN IV (20:18)
[2017-12-26] MEDS: 0.9% NaCl Peripheral Flush Adult/Peds IV (20:18)
[2017-12-26] MEDS: Piperacil/Tazobactam 3.375 GM/50 ML ML IV (21:44)
[2017-12-27] VITALS (34 sets, daily range): BP systolic 96–151; BP diastolic 54–79; PULSE 78–122; RESP 16–36; TEMP 36.7–38.2; O2SAT 89–94
[2017-12-27] MEDS: Ipratropium/Albuterol Sulfate 3 ML AMPUL.NEB INHALATION ×5 (01:48→19:06)
[2017-12-27] MEDS: 0.9% NaCl Peripheral Flush Adult/Peds IV ×4 (06:00→22:49)
[2017-12-27] MEDS: Piperacil/Tazobactam 3.375 GM/50 ML ML IV ×3 (06:01→21:19)
[2017-12-27] MEDS: Ciprofloxacin 400 MG/200 ML BAG 200 MG IV ×3 (06:01→21:19)
[2017-12-27 06:33] LABS: Anion Gap 7 (5-15); BUN 13 mg/dL (7-18); BUN/Creat Ratio 23.6 RATIO (10-20); Calcium,Total 8.7 mg/dL (8.5-10.1); Chloride 103 mmol/L (98-107); Creatinine, Serum 0.55 mg/dL (0.55-1.02); EST Glomerular Filtration Rate 112 mL/min (>60); Est Glom Filt Rate - Afr Amer 136 mL/min (>60); Estimated Creatinine Clearance 35.49 ml/min; Glucose 90 mg/dL (74-106); International Normalized Ratio 1.9; Potassium 4.5 mmol/L (3.5-5.1); Sodium Level 137 mmol/L (136-145)
--- NOTE | 2017-12-27 06:45 | PCM.CONS.GEN ---
Reason for Consult Date of Consultation: 12/27/17 Reason for Consultation: Pneumonia versus fibrosis History of Present Illness: The patient is an 82-year-old female, with a history as outlined below, who presented to the emergency department on December 26 with complaints of shortness of breath, along with an intermittently productive cough. The patient was admitted to the hospital September 30 - October 11, during which time she was treated for acute hypoxemic respiratory failure secondary to healthcare associated pneumonia. A CT chest completed during the hospitalization did reveal multilobar pneumonia along with a large sliding hiatal hernia. The patient does follow with Dr. Bella of cardiology and was last seen by him at the end of October 2017. The patient's last surface echocardiogram dated October 06, 2017 revealed normal LV size and function with an ejection fraction of 55%. There was evidence of a mildly dilated RV along with mild global RV systolic dysfunction, biatrial enlargement and a right ventricular systolic pressure estimated to be 66 mmHg. The patient does have a history of coronary artery disease for which she is status post bypass surgery in October 2015, aortic valve disease with aortic valve replacement and is status post biventricular ICD implantation. The patient did complete an overnight polysomnogram at the end of November 2017 which only demonstrated an overall apnea hypotony index of 1.1 events per hour. On presentation to the emergency department, the patient was noted to be afebrile, hemodynamically stable but hypoxic. Laboratory evaluation revealed no evidence of a leukocytosis. Chemistry profile revealed an elevated potassium to 5.7. Serum lactate was normal. Troponin was within normal limits. BNP was elevated to 313. On November 24, the patient had a documented weight in our system of 137 pounds. On arrival to the hospital, she was documented to have a weight of 148 pounds. Plain film chest imaging revealed diffuse bilateral airspace disease, which per the radiology report was concerning for progressive pulmonary fibrosis. However, prior plain film chest x-ray dated December 18 only appeared to demonstrate a mild degree of chronic bilateral interstitial change. There has been a notable change in the patient's chest x-ray over the course of the 8 days. The patient was started on antibiotics and subsequently transferred to the progressive care unit for ongoing management. Past Medical History Past Medical History (Chronic Problems): Chronic Problems (Last Reviewed 11/20/17 @ 18:03 by Graciela Andrew NP-C) Pulmonary hypertension (Chronic) RVSP 66 mmHg Cardiomyopathy (Chronic) Ischemic cardiomyopathy (Chronic) Paroxysmal atrial fibrillation (Chronic) 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) Hyperthyroidism (Chronic) Hypokalemia (Chronic) Atherosclerotic heart disease of [place] coronary artery without angina pectoris (Chronic) CABG x1 RANDLE-LAD x/Aortic Valve Replacement Left bundle-branch block (Chronic) Nonrheumatic aortic valve stenosis (Chronic) HTN (hypertension) (Chronic) Other chest pain (Chronic) Presence of aortocoronary bypass graft (Chronic) Dyspnea on exertion (Chronic) Fatigue (Chronic) Chronic pulmonary heart disease (Chronic) CVA (cerebral infarction) (Chronic) Hyperlipidemia (Chronic) Paroxysmal ventricular tachycardia (Chronic) HTN (hypertension) (Chronic) Hypothyroidism associated with surgical procedure (Chronic) had a subtotal thyroidectomy for goiter Hemorrhoids (Chronic) Restless leg syndrome (Chronic) TIA (transient ischemic attack) (Chronic) multiple History of aortic valve replacement with bioprosthetic valve (Chronic) Medical History: Medical History (Last Reviewed 11/20/17 @ 18:03 by Graciela Andrew, RN LABOR AND DELIVERY-C) Ischemic cardiomyopathy (Chronic) I25.5 Paroxysmal atrial fibrillation (Chronic) I48.0 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) Z95.810 Hyperthyroidism (Chronic) E05.90 Hypokalemia (Chronic) E87.6 Atherosclerotic heart disease of [place] coronary artery without angina pectoris (Chronic) I25.10 CABG x1 RANDLE-LAD x/Aortic Valve Replacement Left bundle-branch block (Chronic) I44.7 Nonrheumatic aortic valve stenosis (Chronic) I35.0 HTN (hypertension) (Chronic) I10 Other chest pain (Chronic) R07.89 Dyspnea on exertion (Chronic) R06.09 Fatigue (Chronic) R53.83 Chronic pulmonary heart disease (Chronic) I27.9 CVA (cerebral infarction) (Chronic) I63.9 Hyperlipidemia (Chronic) E78.5 Paroxysmal ventricular tachycardia (Chronic) I47.2 HTN (hypertension) (Chronic) I10 Neck swelling (Acute) R22.1 left supraclavicular fossa and left neck Hypothyroidism associated with surgical procedure (Chronic) E89.0 had a subtotal thyroidectomy for goiter Hemorrhoids (Chronic) K64.9 Restless leg syndrome (Chronic) TIA (transient ischemic attack) (Chronic) multiple History of aortic valve replacement with bioprosthetic valve (Chronic) Z95.4 Allergies adhesive Allergy (Verified 11/20/17 09:14) Unknown etodolac Allergy (Verified 11/20/17 09:14) Unknown nitroglycerin Allergy (Verified 11/20/17 09:14) Unknown oxycodone HCl [From Percocet] Allergy (Verified 11/20/17 09:14) Unknown phenobarbital Allergy (Verified 11/20/17 09:14) Unknown tolmetin sodium [From Tolectin] Allergy (Verified 11/20/17 09:14) Unknown venlafaxine Allergy (Verified 11/20/17 09:14) Unknown nitropatch Allergy (Uncoded 11/20/17 09:14) unknown Home Medications: Ambulatory Orders Medication Instructions Recorded Magnesium Oxide [Mag-Ox 400] 400 mg PO DAILY 09/17/15 Nitroglycerin [Nitrostat] 0.4 mg SUBLINGUAL Q5M PRN 09/20/15 gabapentin 100 mg capsule 100 mg PO BREAKFAST 05/05/17 amlodipine 5 mg tablet 5 mg PO DAILY 06/23/17 atorvastatin 40 mg tablet 20 mg PO QHS tab 06/23/17 Carvedilol [Coreg (Beta Gene)] 25 mg PO BID 07/06/17 Cholecalciferol (Vitamin D3) 1,000 unit PO DAILY 07/06/17 [Vitamin D3] Albuterol Aerosols [Ventolin 2.5 mg INHALATION Q4H PRN PRN 09/30/17 Aerosols] Famotidine [Pepcid] 20 mg PO BID 09/30/17 Aspirin E.C. [Ecotrin] 81 mg PO DAILY 10/11/17 Furosemide [Lasix] 40 mg PO DAILY PRN 10/11/17 Acetaminophen [Tylenol Extra 500 mg PO BID PRN 12/26/17 Strength] Escitalopram Oxalate [Lexapro] 10 mg PO DAILY 12/26/17 Esomeprazole Magnesium 40 mg PO DAILY 12/26/17 Gabapentin [Neurontin] 100 mg PO LUNCH 12/26/17 Gabapentin [Neurontin] 300 mg PO QHS 12/26/17 Iron Polysaccharide Complex 150 mg PO QODAY 12/26/17 [Ferrex 150] Menthol/Lanolin/Calamine/Znox 1 applic TOPICAL TID 12/26/17 [Calmoseptine Ointment] Potassium Chloride [K-Dur] 20 meq PO BID 12/26/17 Quinapril HCl 40 mg PO QHS 12/26/17 Ubidecarenone [Coenzyme Q-10] 200 mg PO DAILY 12/26/17 Warfarin [Coumadin] 2 mg PO DAILY@1700 12/26/17 Warfarin [Coumadin] 2.5 mg PO DAILY@1700 12/26/17 traMADol [Ultram] 50 mg PO Q6H PRN PRN 12/26/17 Surgical History: Surgical History (Last Reviewed 11/20/17 @ 18:03 by DAJUAN ShahC) History of hip replacement (Resolved) Z96.649 Presence of aortocoronary bypass graft (Chronic) Z95.1 H/O aortic valve replacement Z95.2 21 mm Magna Ease Pericardial Valve H/O right and left heart catheterization Onset Date: 09/24/15 Z98.890 History of appendectomy Z90.49 History of hysterectomy Z98.890, Z90.710 History of left heart catheterization (LHC) Z98.890 2000, 2006, 2009, 2013. History of total right knee replacement (TKR) Z96.651 Hx of CABG Z95.1 CABG x1 RANDLE-LAD x/Aortic Valve Replacement Hx of cholecystectomy Z98.890, Z90.49 aortaplasty with pericardial patch closure Onset Date: 10/26/15 at Surgical History: appendectomy, cholecystectomy, coronary bypass surgery, hysterectomy - She still has ovaries and fallopian tubes. The hysterectomy was done for dysfunctional uterine bleeding., pacemaker implantation, total hip arthroplasty, - - Bioprosthetic aortic valve replacement with CABG in October 2015 Psychiatric History: No pertinent psych hx [employer] History: dysfunctional uterine bld Smoking Status: Never smoker - *Family History Maternal Family History: Family History (Last Reviewed 11/20/17 @ 18:03 by BETTIE Shah) Father Myocardial infarction, Onset Age: 45 Hypertension Heart disease Mother Myocardial infarction, Onset Age: 64 CAD (coronary artery disease) Hypertension Brother Myocardial infarction, Onset Age: 59 Heart disease CAD (coronary artery disease) CVA (cerebral vascular accident) Hypertension Sister CAD (coronary artery disease) Hypertension Daughter Diabetes HLD (hyperlipidemia) Son Hypertension HLD (hyperlipidemia) CAD (coronary artery disease) History Items: Heart Disease, Hypertension Paternal Family History: Family History (Last Reviewed 11/20/17 @ 18:03 by BETTIE Shah) Father Myocardial infarction, Onset Age: 45 Hypertension Heart disease Mother Myocardial infarction, Onset Age: 64 CAD (coronary artery disease) Hypertension Brother Myocardial infarction, Onset Age: 59 Heart disease CAD (coronary artery disease) CVA (cerebral vascular accident) Hypertension Sister CAD (coronary artery disease) Hypertension Daughter Diabetes HLD (hyperlipidemia) Son Hypertension HLD (hyperlipidemia) CAD (coronary artery disease) History Items: High Cholesterol, Heart Disease Review of Systems Constitutional: Reports: Weight Change. Denies: Chills, Fever Eyes: Denies: Blurred vision, Double vision HEENT: Denies: Head Aches, Sinus Congestion, Sinus Drainage Cardiovascular: Denies: Chest Pain, Palpitations Respiratory: Reports: Cough, Shortness of Breath, Sputum production Gastrointestinal: Denies: Abdominal Pain, Nausea, Vomiting Genitourinary: Denies: Dysuria Musculoskeletal: Denies: Joint Pain, Joint Tenderness Skin: Denies: Rash, Wounds Neurological: Denies: Numbness, Tingling, Focal weakness Psychiatric: Denies: Anxiety, Depression, Homicidal Ideations, Suicidal Ideations Hematologic/ Lymphatic: Denies: Easy Bruising, Easy Bleeding Patient Problems: Active and Suspected Problems (Last Reviewed 11/20/17 @ 18:03 by BETTIE Shah) HCAP (healthcare-associated pneumonia) (Acute) Objective: The patient's most recent lab work, culture data and imaging studies have all been personally reviewed. - Physical Exam General: Alert, Cooperative, No apparent distress HEENT: Atraumatic, PERRLA, Normocephalic Oral: No Gingival or Mucosal Lesions/ Ulcerations Neck: Supple, No Nodes, Trachea Midline Lungs: No rhonchi, No wheeze, Diminished, Rales Cardiovascular: Regular rate, Regular Rhythm, Normal S1, Normal S2, No murmurs Abdomen: Bowel Sounds Present, Soft, Non Tender, Non-Distended Extremities: No clubbing, No cyanosis, - - Trace pedal edema Skin: No breakdown Musculoskeletal: No Tenderness to Palpation of Joints or Extremities Lymphatic: No Cervical, Supraclavicular, or Inguinal Adenopathy Neurological: - - No focal neurological deficits. Psych/Mental Status: Normal Affect, Appropriate Vital Signs Temp Pulse Resp BP Pulse Ox 100.1 F H 95 29 H 134/70 H 92 12/27/17 05:47 12/27/17 05:47 12/27/17 05:47 12/27/17 05:47 12/27/17 05:47 Oxygen Flow Rate (L/min) 6 Oxygen Delivery Method Nasal Cannula Intake and Output for Last 24 Hours 12/25/17 12/26/17 12/27/17 23:59 23:59 23:59 Intake Total 299 / 299 210.7 / 210.7 Balance 299 / 299 210.7 / 210.7 Laboratory Tests Past 24 Hrs 12/26/17 12/27/17 12/27/17 20:00 05:05 05:05 WBC Pending RBC Pending Hgb Pending Hct Pending MCV Pending MCH Pending MCHC Pending RDW Pending RDW Differential Pending Plt Count Pending Neut % (Auto) Pending Absolute Neuts (auto) Pending Total Counted Pending PT Pending INR Pending Sodium Potassium Chloride Carbon Dioxide Anion Gap BUN Creatinine Estim Creat Clear Calc Est GFR (MDRD) Af Amer Est GFR (MDRD) Non-Af BUN/Creatinine Ratio Glucose Lactic Acid 1.0 Calcium 12/27/17 05:05 WBC RBC Hgb Hct MCV MCH MCHC RDW RDW Differential Plt Count Neut % (Auto) Absolute Neuts (auto) Total Counted PT INR Sodium 137 Potassium 4.5 Chloride 103 Carbon Dioxide 27.0 Anion Gap 7 BUN 13 Creatinine 0.55 Estim Creat Clear Calc 35.49 Est GFR (MDRD) Af Amer 136 Est GFR (MDRD) Non-Af 112 BUN/Creatinine Ratio 23.6 H Glucose 90 Lactic Acid Calcium 8.7 Clinical Impression(s) from Imaging Studies Chest X-Ray 12/26/17 14:50 IMPRESSION: Progression of pulmonary fibrosis. Superimposed CHF is difficult to exclude since there is new right pleural fluid and mild pulmonary vascular congestion. Electronically Signed: Joe Cosme MD at 15:17 EDT , Service support , Chest X-Ray 12/27/17 04:20 IMPRESSION: No interval change. Pulmonary vascular congestion. Electronically Signed: Foreign Johnson DO at 5:26 EDT , Service support , Assessment/Plan All Active Problems (Last Reviewed 11/20/17 @ 18:03 by Graciela Andrew NP-C) HCAP (healthcare-associated pneumonia) (Acute) History of hip replacement (Resolved) Surgical site infection (Resolved) multilobar HCAP (Acute) Acute respiratory failure with hypoxia (Acute) CHF (congestive heart failure) (Acute) Neck swelling (Acute) Accelerated hypertension (Resolved) Chest pain (Resolved) DVT of lower extremity (deep venous thrombosis) (Resolved) Nephrolithiasis (Resolved) RECOMMENDATIONS: 1. Agree with continuing broad-spectrum antibiotics for now. 2. Check strep and urine Legionella antigens, along with respiratory viral panel. 3. Obtain and send sputum for culture. 4. Administer IV Lasix ?1 today. 5. Wean supplemental oxygen to maintain saturations at or above 90%. IMPRESSIONS: 1. Acute on chronic hypoxic respiratory failure The patient's chest imaging does demonstrate diffuse bilateral airspace disease, which has progressed since her last chest imaging was completed on December 18. While the patient may have a component of chronic underlying fibrosis, the diffuse nature of the patient's radiographic findings in addition with the timeframe with which they developed, makes fulminant pulmonary fibrosis unlikely. Clinical concern would be for underlying infectious etiology versus volume overload. Agree with continuing broad-spectrum antibiotics. Recommend checking strep and urine Legionella antigens, along with respiratory viral panel. Please send sputum for culture. Would also recommend giving a one-time dose of IV Lasix. 2. Heart failure with preserved ejection fraction/ischemic cardiomyopathy status post CABG/history of aortic valve replacement/pulmonary hypertension Start Lovenox given subtherapeutic INR. Agree with giving a one-time dose of IV Lasix and assessing the patient's clinical response. Hold on giving any supplemental IV fluids. 3. Advanced age and deconditioning/hypertension/hyperlipidemia/GERD/depression Complicates care, management, recovery and prognosis. Likely okay to continue home medications as indicated. Evaluation by palliative care is currently pending. CODE STATUS is DNR CCA. This note was generated with [employer] software. It may contain incorrect words, spelling, and punctuation that were not noted in checking the note before signing. Code Visit Inpatient E&M: 42553 Init Hosp L3
[2017-12-27 07:08] LABS: Absolute Lymphocyte Count 0.52 X10^3/ul (0.83-4.51); Absolute Neutrophil Count 7.1 X10^3/uL (2.0-7.7); Basophil# 0.03 X10^3/uL; Basophil% 0.3 % (0-1); Eosinophil# 0.34 X10^3/uL; Eosinophils% 3.8 % (0-5); Hemoglobin 8.8 g/dl (12.0-15.0); Lymphocyte # 0.52 X10^3/ul (4.0); Lymphocyte % 5.8 % (19-41); Mean Corp Hgb Conc 30.3 g/gl (32-36); Mean Corpuscular Hgb 28.5 pg (27.0-32.0); Mean Corpuscular Volume 93.9 fL (81-99); Mean Platelet Vol. 10.6 fl (6.2-12.0); Monocyte# 0.91 X10^3/uL; Monocyte% 10.2 % (0-10); Neutrophil # 7.11 X10^3/uL (2.7-7.7); Neutrophil % 79.7 % (47-70); Platelet Count 239 K/mm3 (150-450); RBC Distribution Width CV 16.2 % (11.6-14.6); RBC Distribution Width SD 53.5 fl (35.1-43.9); Red Blood Count 3.09 M/mm3 (4.2-5.4); White Blood Count 8.9 K/mm3 (4.4-11.0)
[2017-12-27 07:36] LABS: Differential Indicated SCAN CRITERIA MET; POSITIVE COUNT NO; POSITIVE DIFFERENTIAL YES; POSITIVE MORPHOLOGY NO
[2017-12-27 07:43] LABS: Hypochromasia 1+
--- NOTE | 2017-12-27 08:48 | PCM.PN.HOSP ---
Patient Problems: Active and Suspected Problems (Last Reviewed 11/20/17 @ 18:03 by BETTIE Shah) HCAP (healthcare-associated pneumonia) (Acute) Subjective: Does not seem to be improving since yesterday. She states that her breathing is about the same and she is a little tachypnic and had to go up on her oxygen over night Vitals/I&O's: Vital Signs Temp Pulse Resp BP Pulse Ox 99.6 F H 98 28 H 136/76 H 93 12/27/17 08:00 12/27/17 08:00 12/27/17 08:00 12/27/17 08:00 12/27/17 08:00 Oxygen Flow Rate (L/min) 5 Oxygen Delivery Method Nasal Cannula Intake and Output for Last 24 Hours 12/25/17 12/26/17 12/27/17 23:59 23:59 23:59 Intake Total 299 / 299 210.7 / 210.7 Balance 299 / 299 210.7 / 210.7 General: Alert, Oriented x3, Cooperative, No apparent distress HEENT: Atraumatic, EOMI, Normocephalic Oral: Moist Mucosa Neck: Supple, No JVD Lungs: Normal air movement, Rhonchi, Short of Breath, Tachypneic Cardiovascular: Regular rate, Regular Rhythm, Normal S1, Normal S2, No murmurs Abdomen: Soft, Non Tender, Non-Distended, No Hepato-splenomegaly Skin: No rashes, No breakdown Psych/Mental Status: Normal Affect, Appropriate Laboratory Results 12/26/17 20:00: Lactic Acid 1.0 12/27/17 05:05: WBC 8.9, RBC 3.09 L, Hgb 8.8 L, Hct 29.0 L, MCV 93.9, MCH 28.5, MCHC 30.3 L, RDW 16.2 H, RDW Differential 53.5 H, Plt Count 239, MPV 10.6, Immature Gran % (Auto) 0.200, Neut % (Auto) 79.7 H, Lymph % (Auto) 5.8 L, [place] % (Auto) 10.2 H, Eos % (Auto) 3.8, Baso % (Auto) 0.3, Absolute Neuts (auto) 7.1, Absolute Lymphs (auto) 0.52 L, Total Counted Not Reportable, Hypochromasia 1+ 12/27/17 05:05: PT 22.0 H, INR 1.9 12/27/17 05:05: Sodium 137, Potassium 4.5, Chloride 103, Carbon Dioxide 27.0, Anion Gap 7, BUN 13, Creatinine 0.55, Estim Creat Clear Calc 35.49, Est GFR (MDRD) Af Amer 136, Est GFR (MDRD) Non-Af 112, BUN/Creatinine Ratio 23.6 H, Glucose 90, Calcium 8.7 Current Medications Acetaminophen (Tylenol) 650 mg PO Q4H PRN PRN PRN Reason: FEVER Albuterol/Ipratropium (Duoneb) 3 ml INHALATION Q4HWA.RT [facility] Last Admin: 12/27/17 07:03 Dose: 3 ml Enoxaparin Sodium (Lovenox) 40 mg SC DAILY@1000 WENDY Piperacillin Sod/Tazobactam Sod (Zosyn) 3.375 gm in 50 mls @ 12.5 mls/hr IV Q8 [facility] Last Admin: 12/27/17 06:01 Dose: 12.5 mls/hr Ciprofloxacin (Cipro) 400 mg in 200 mls @ 200 mls/hr IV Q8 [facility] Last Admin: 12/27/17 06:01 Dose: 200 mls/hr Magnesium Hydroxide (Milk Of Magnesia) 30 ml PO DAILY PRN PRN Reason: Constipation Ondansetron HCl (Zofran) 4 mg IV Q8H PRN PRN PRN Reason: NAUSEA Sodium Chloride () 5 - 30 ml IV UD PRN PRN Reason: SALINE FLUSH Last Admin: 12/27/17 06:00 Dose: 10 ml Medical Necessity - Tobacco Use Smoking Status: Never smoker Assessment/Plan All Active Problems (Last Reviewed 11/20/17 @ 18:03 by Graciela Andrew NP-C) HCAP (healthcare-associated pneumonia) (Acute) History of hip replacement (Resolved) Surgical site infection (Resolved) multilobar HCAP (Acute) Acute respiratory failure with hypoxia (Acute) CHF (congestive heart failure) (Acute) Neck swelling (Acute) Accelerated hypertension (Resolved) Chest pain (Resolved) DVT of lower extremity (deep venous thrombosis) (Resolved) Nephrolithiasis (Resolved) 1. SOB/Weakness/HCAP/COPD - Difficult to discern the exact etiology of her symptoms - c/w antibiotics, she received levaquin in the ER, switched to zosyn/cipro (12/26) - Will do duonebs and consult pulm for recommendations on pulmonary fibrosis - Will hold of on IVF at the moment and she is doing well and is not septic - Her pro-BNP was slightly elevated though not really above her baseline, however given the persistent crackles, will give a dose of IV lasix today - Lactate was 2 on admission and her troponin was negative - c/w with her O2, she is usually on 2-3 L NC at home - CXR today is more expanded over there are bilaterall fluffy infiltrates vs congestion, legionella and strep Urine ag is pending. - Repeat CXR in the am and if no improvement may also broaden coverage with azithromycin 2. Ischemic cardiomyopathy with diastolic CHF/A-fib/CAD s/p CABG and aortic valve repair/HLD - C/w coumadin and watch INR while on abx - Lasix x1 today - Tele monitoring - c/w coreg, lipitor 3. GERD - c/w pepcid 4. Depression/Anxiety - stable - c/w celexa 5. Hyperkalemia - potassium is normal today - Monitor electrolytes DVT: Lovenox Diet: Cardiac Code: DNR Dispo: PCU Code Visit Inpatient E&M: 63078 Subs Hosp L2
[2017-12-27] MEDS: Enoxaparin 40 MG/0.4 ML Syringe SC (08:49)
[2017-12-27] MEDS: Furosemide 40 MG/4 ML Vial IV ×2 (08:49→16:01)
[2017-12-27] MEDS: Acetaminophen 325 MG Tablet 650 MG PO (11:56)
[2017-12-27] MEDS: Gabapentin 100 MG Capsule PO (11:56)
--- NOTE | 2017-12-27 14:24 | CM.UR ---
Met face to face with patient and 2 daughters. Introduced myself and my role. At this time daughters deny any needs. Explained that case management is available should they think of anything. Verb understanding. Eden Prabhakar RN, [facility].
[2017-12-27] MEDS: Atorvastatin Calcium 20 MG Tablet PO (21:22)
[2017-12-27] MEDS: Carvedilol 25 MG Tablet PO (21:22)
[2017-12-27] MEDS: Gabapentin 100 MG Capsule 200 MG PO (21:29)
[2017-12-27] MEDS: Lisinopril 40 MG Tablet PO (21:30)
[2017-12-27] MEDS: Ondansetron 4 MG/2 ML Vial IV (22:49)
[2017-12-28] VITALS (33 sets, daily range): BP systolic 91–122; BP diastolic 42–91; PULSE 72–108; RESP 16–32; TEMP 37.1–37.8; O2SAT 83–97
[2017-12-28] MEDS: Ciprofloxacin 400 MG/200 ML BAG 200 MG IV (05:13)
[2017-12-28] MEDS: Piperacil/Tazobactam 3.375 GM/50 ML ML IV (05:13)
[2017-12-28 05:36] LABS: Prothrombin Time (Protime)PT. 23.1 SECONDS (11.7-14.9)
[2017-12-28 05:43] LABS: Absolute Lymphocyte Count 0.44 X10^3/ul (0.83-4.51); Absolute Neutrophil Count 5.7 X10^3/uL (2.0-7.7); Basophil# 0.03 X10^3/uL; Basophil% 0.4 % (0-1); Differential Indicated SCAN CRITERIA MET; Eosinophil# 0.26 X10^3/uL; Eosinophils% 3.5 % (0-5); Hematocrit 26.2 % (37-47); Hemoglobin 8.1 g/dl (12.0-15.0); Lymphocyte # 0.44 X10^3/ul (4.0); Mean Corp Hgb Conc 30.9 g/gl (32-36); Mean Corpuscular Hgb 28.5 pg (27.0-32.0); Mean Corpuscular Volume 92.3 fL (81-99); Mean Platelet Vol. 10.3 fl (6.2-12.0); Monocyte# 0.89 X10^3/uL; Monocyte% 12.1 % (0-10); Neutrophil # 5.71 X10^3/uL (2.7-7.7); Neutrophil % 77.9 % (47-70); POSITIVE COUNT NO; POSITIVE DIFFERENTIAL YES; POSITIVE MORPHOLOGY NO; Platelet Count 205 K/mm3 (150-450); RBC Distribution Width SD 51.8 fl (35.1-43.9); Red Blood Count 2.84 M/mm3 (4.2-5.4); White Blood Count 7.3 K/mm3 (4.4-11.0)
[2017-12-28 06:09] LABS: Anion Gap 11 (5-15); BUN 10 mg/dL (7-18); BUN/Creat Ratio 17.8 RATIO (10-20); Calcium,Total 8.2 mg/dL (8.5-10.1); Chloride 97 mmol/L (98-107); Creatinine, Serum 0.56 mg/dL (0.55-1.02); EST Glomerular Filtration Rate 110 mL/min (>60); Est Glom Filt Rate - Afr Amer 133 mL/min (>60); Estimated Creatinine Clearance 35.49 ml/min; Glucose 99 mg/dL (74-106); Magnesium 1.6 mg/dL (1.6-2.6); Potassium 2.7 mmol/L (3.5-5.1); Sodium Level 138 mmol/L (136-145)
--- NOTE | 2017-12-28 06:17 | NURSING ---
Critical potassium result of 2.7 called to Kala Castellanos RN
[2017-12-28] MEDS: Ipratropium/Albuterol Sulfate 3 ML AMPUL.NEB INHALATION ×4 (06:48→19:03)
[2017-12-28 07:04] LABS: Differential Comment SCANNED
--- NOTE | 2017-12-28 07:48 | CPS ---
pt increased to 3.5 lpm. saturation 88-89% on 3.5lpm
[2017-12-28] MEDS: Ondansetron 4 MG/2 ML Vial IV (07:59)
--- NOTE | 2017-12-28 09:15 | PCM.PN.HOSP ---
Patient Problems: Active and Suspected Problems (Last Reviewed 11/20/17 @ 18:03 by BETTIE Shah) HCAP (healthcare-associated pneumonia) (Acute) Subjective: Has nausea and PVC overnight. Continues with nausea this am and states she has not had a BM in a few days. Nursing has been able to decrease her oxygen use to her home amount Objective: General: Alert, Oriented x3, Cooperative, No apparent distress HEENT: Atraumatic, EOMI, Normocephalic Oral: Moist Mucosa Neck: Supple, No JVD Lungs: Normal air movement, Rhonchi, Short of Breath, Tachypneic Cardiovascular: Regular rate, irregular Rhythm, Normal S1, Normal S2, No murmurs Abdomen: Soft, Non Tender, Non-Distended, No Hepato-splenomegaly Skin: No rashes, No breakdown Psych/Mental Status: Normal Affect, Appropriate Vitals/I&O's: Vital Signs Temp Pulse Resp BP Pulse Ox 99.2 F H 87 25 H 92/68 90 12/28/17 08:00 12/28/17 08:00 12/28/17 08:00 12/28/17 08:00 12/28/17 08:00 Oxygen Flow Rate (L/min) 3.5 Oxygen Delivery Method Nasal Cannula Weight: 141 lb 1.533 oz Intake and Output for Last 24 Hours 12/26/17 12/27/17 12/28/17 23:59 23:59 23:59 Intake Total 299 / 299 2082.1 / 2082.1 237.8 / 237.8 Output Total 3040 / 3040 200 / 200 Balance 299 / 299 -957.9 / -957.9 37.8 / 37.8 Microbiology Past 72 Hours 12/27/17 07:55 Mucosa - Nose Respiratory Panel (PCR) - Final 12/27/17 12:00 Urine Catheter - Catheter Streptococcus pneumoniae Antigen (M - Final 12/27/17 12:00 Urine Catheter - Catheter Legionella Antigen - Final Laboratory Results 12/28/17 05:00: WBC 7.3, RBC 2.84 L, Hgb 8.1 L, Hct 26.2 L, MCV 92.3, MCH 28.5, MCHC 30.9 L, RDW 16.0 H, RDW Differential 51.8 H, Plt Count 205, MPV 10.3, Immature Gran % (Auto) 0.100, Neut % (Auto) 77.9 H, Lymph % (Auto) 6.0 L, [place] % (Auto) 12.1 H, Eos % (Auto) 3.5, Baso % (Auto) 0.4, Absolute Neuts (auto) 5.7, Absolute Lymphs (auto) 0.44 L, Total Counted Not Reportable, Differential Comment SCANNED 12/28/17 05:00: PT 23.1 H, INR 2.0 12/28/17 05:00: Sodium 138, Potassium 2.7 L*, Chloride 97 L, Carbon Dioxide 30.0, Anion Gap 11, BUN 10, Creatinine 0.56, Estim Creat Clear Calc 35.49, Est GFR (MDRD) Af Amer 133, Est GFR (MDRD) Non-Af 110, BUN/Creatinine Ratio 17.8, Glucose 99, Calcium 8.2 L, Magnesium 1.6 Current Medications Acetaminophen (Tylenol) 650 mg PO Q4H PRN PRN PRN Reason: FEVER Last Admin: 12/27/17 11:56 Dose: 650 mg Albuterol/Ipratropium (Duoneb) 3 ml INHALATION Q4HWA.RT [facility] Last Admin: 12/28/17 06:48 Dose: 3 ml Amlodipine Besylate (Norvasc) 5 mg PO DAILY [facility] Aspirin (Ecotrin) 81 mg PO DAILY@0800 [facility] Atorvastatin Calcium (Lipitor) 20 mg PO QHS [facility] Last Admin: 12/27/17 21:22 Dose: 20 mg Carvedilol (Coreg) 25 mg PO BID [facility] Last Admin: 12/27/17 21:22 Dose: 25 mg Cholecalciferol (Vitamin D) [facility] Docusate Sodium (Colace) 100 mg PO BID [facility] Escitalopram Oxalate (Lexapro) 10 mg PO DAILY [facility] Famotidine (Pepcid) 20 mg PO DAILY [facility] Furosemide (Lasix) 40 mg IV DAILY [facility] Gabapentin (Neurontin) 100 mg PO LUNCH [facility] Last Admin: 12/27/17 11:56 Dose: 100 mg Gabapentin (Neurontin) 100 mg PO BREAKFAST [facility] Gabapentin (Neurontin) 200 mg PO QHS [facility] Last Admin: 12/27/17 21:29 Dose: 200 mg Piperacillin Sod/Tazobactam Sod (Zosyn) 3.375 gm in 50 mls @ 12.5 mls/hr IV Q8 [facility] Last Admin: 12/28/17 05:13 Dose: 12.5 mls/hr Ciprofloxacin (Cipro) 400 mg in 200 mls @ 200 mls/hr IV Q8 [facility] Last Admin: 12/28/17 05:13 Dose: 200 mls/hr Magnesium Sulfate 2 gm/ Sodium (Chloride) 104 mls @ 52 mls/hr IV X1 ONE Stop: 12/28/17 09:44 Lisinopril (Zestril) 40 mg PO QHS [facility] Last Admin: 12/27/17 21:30 Dose: 40 mg Magnesium Hydroxide (Milk Of Magnesia) 30 ml PO DAILY PRN PRN Reason: Constipation Magnesium Oxide (Mag-Ox 400) [facility] Nitroglycerin (Nitrostat) 0.4 mg SUBLINGUAL Q5M PRN PRN Reason: Chest Pain Ondansetron HCl (Zofran) 4 mg IV Q8H PRN PRN PRN Reason: NAUSEA Last Admin: 12/28/17 07:59 Dose: 4 mg Pantoprazole Sodium (Protonix) 40 mg PO DAILY [facility] Polyethylene Glycol (Miralax) 17 gm PO DAILY [facility] Polysaccharide Iron Complex (Ferrex 150) 150 mg PO QODAY [facility] Sodium Chloride () 5 - 30 ml IV UD PRN PRN Reason: SALINE FLUSH Last Admin: 12/27/17 22:49 Dose: 20 ml Tramadol HCl (Ultram) 50 mg PO Q6H PRN PRN PRN Reason: PAIN Warfarin Sodium (Coumadin (Pbkc)) 2.5 mg PO DAILY@1700 [facility] Last Admin: 12/27/17 16:01 Dose: 2.5 mg Medical Necessity - Tobacco Use Smoking Status: Never smoker Assessment/Plan All Active Problems (Last Reviewed 11/20/17 @ 18:03 by Graciela Andrew, LAURENCE-C) HCAP (healthcare-associated pneumonia) (Acute) History of hip replacement (Resolved) Surgical site infection (Resolved) multilobar HCAP (Acute) Acute respiratory failure with hypoxia (Acute) CHF (congestive heart failure) (Acute) Neck swelling (Acute) Accelerated hypertension (Resolved) Chest pain (Resolved) DVT of lower extremity (deep venous thrombosis) (Resolved) Nephrolithiasis (Resolved) 1. SOB/Weakness/HCAP/COPD - Difficult to discern the exact etiology of her symptoms - c/w antibiotics, she received levaquin in the ER, switched to zosyn/cipro (12/26) - strep and legionella antigen are negative - Will do paola stein - Will hold of on IVF at the moment and she is doing well and is not septic - Her pro-BNP was slightly elevated though not really above her baseline, however given the persistent crackles, will give a daily IV lasix - Lactate was 2 on admission and her troponin was negative - c/w with her O2, she is usually on 2-3 L NC at home - CXR pending 2. Ischemic cardiomyopathy with diastolic CHF/A-fib/CAD s/p CABG and aortic valve repair/HLD - C/w coumadin and watch INR while on abx - Lasix daily - Tele monitoring - c/w coreg, lipitor 3. GERD/Nausea - c/w pepcid - Will start a bowel regimen with colace and miralax to facilitate her BM 4. Depression/Anxiety - stable - c/w celexa 5. Hyperkalemia - potassium is normal today - Monitor electrolytes DVT: Lovenox Diet: Cardiac Code: DNR Dispo: PCU Code Visit Inpatient E&M: 84335 Subs Hosp L2
--- NOTE | 2017-12-28 09:19 | PN_ITS ---
Patient Problems: Active and Suspected Problems (Last Reviewed 11/20/17 @ 18:03 by BETTIE Shah) HCAP (healthcare-associated pneumonia) (Acute) Subjective: Has nausea and PVC overnight. Continues with nausea this am and states she has not had a BM in a few days. Nursing has been able to decrease her oxygen use to her home amount Objective: General: Alert, Oriented x3, Cooperative, No apparent distress HEENT: Atraumatic, EOMI, Normocephalic Oral: Moist Mucosa Neck: Supple, No JVD Lungs: Normal air movement, Rhonchi, Short of Breath, Tachypneic Cardiovascular: Regular rate, irregular Rhythm, Normal S1, Normal S2, No murmurs Abdomen: Soft, Non Tender, Non-Distended, No Hepato-splenomegaly Skin: No rashes, No breakdown Psych/Mental Status: Normal Affect, Appropriate Vitals/I&O's: Vital Signs Temp Pulse Resp BP Pulse Ox 99.2 F H 87 25 H 92/68 90 12/28/17 08:00 12/28/17 08:00 12/28/17 08:00 12/28/17 08:00 12/28/17 08:00 Oxygen Flow Rate (L/min) 3.5 Oxygen Delivery Method Nasal Cannula Weight: 141 lb 1.533 oz Intake and Output for Last 24 Hours 12/26/17 12/27/17 12/28/17 23:59 23:59 23:59 Intake Total 299 / 299 2082.1 / 2082.1 237.8 / 237.8 Output Total 3040 / 3040 200 / 200 Balance 299 / 299 -957.9 / -957.9 37.8 / 37.8 Microbiology Past 72 Hours 12/27/17 07:55 Mucosa - Nose Respiratory Panel (PCR) - Final 12/27/17 12:00 Urine Catheter - Catheter Streptococcus pneumoniae Antigen ( M - Final 12/27/17 12:00 Urine Catheter - Catheter Legionella Antigen - Final Laboratory Results 12/28/17 05:00: WBC 7.3, RBC 2.84 L, Hgb 8.1 L, Hct 26.2 L, MCV 92.3, MCH 28.5, MCHC 30.9 L, RDW 16.0 H, RDW Differential 51.8 H, Plt Count 205, MPV 10.3, Immature Gran % (Auto) 0.100, Neut % (Auto) 77.9 H, Lymph % (Auto) 6.0 L, [place] % (Auto) 12.1 H, Eos % (Auto) 3.5, Baso % (Auto) 0.4, Absolute Neuts (auto) 5.7 , Absolute Lymphs (auto) 0.44 L, Total Counted Not Reportable, Differential Comment SCANNED 12/28/17 05:00: PT 23.1 H, INR 2.0 12/28/17 05:00: Sodium 138, Potassium 2.7 L*, Chloride 97 L, Carbon Dioxide 30.0 , Anion Gap 11, BUN 10, Creatinine 0.56, Estim Creat Clear Calc 35.49, Est GFR ( MDRD) Af Amer 133, Est GFR (MDRD) Non-Af 110, BUN/Creatinine Ratio 17.8, Glucose 99, Calcium 8.2 L, Magnesium 1.6 Current Medications Acetaminophen (Tylenol) 650 mg PO Q4H PRN PRN PRN Reason: FEVER Last Admin: 12/27/17 11:56 Dose: 650 mg Albuterol/Ipratropium (Duoneb) 3 ml INHALATION Q4HWA.RT [facility] Last Admin: 12/28/17 06:48 Dose: 3 ml Amlodipine Besylate (Norvasc) 5 mg PO DAILY [facility] Aspirin (Ecotrin) 81 mg PO DAILY@0800 [facility] Atorvastatin Calcium (Lipitor) 20 mg PO QHS [facility] Last Admin: 12/27/17 21:22 Dose: 20 mg Carvedilol (Coreg) 25 mg PO BID [facility] Last Admin: 12/27/17 21:22 Dose: 25 mg Cholecalciferol ([facility]itamin [facility]) [facility] Docusate Sodium (Colace) 100 mg PO BID [facility] Escitalopram Oxalate (Lexapro) 10 mg PO DAILY [facility] Famotidine (Pepcid) 20 mg PO DAILY [facility] Furosemide (Lasix) 40 mg IV DAILY [facility] Gabapentin (Neurontin) 100 mg PO LUNCH [facility] Last Admin: 12/27/17 11:56 Dose: 100 mg Gabapentin (Neurontin) 100 mg PO BREAKFAST [facility] Gabapentin (Neurontin) 200 mg PO QHS [facility] Last Admin: 12/27/17 21:29 Dose: 200 mg Piperacillin Sod/Tazobactam Sod (Zosyn) 3.375 gm in 50 mls @ 12.5 mls/hr IV Q8 [facility] Last Admin: 12/28/17 05:13 Dose: 12.5 mls/hr Ciprofloxacin (Cipro) 400 mg in 200 mls @ 200 mls/hr IV Q8 [facility] Last Admin: 12/28/17 05:13 Dose: 200 mls/hr Magnesium Sulfate 2 gm/ Sodium (Chloride) 104 mls @ 52 mls/hr IV X1 ONE Stop: 12/28/17 09:44 Lisinopril (Zestril) 40 mg PO QHS [facility] Last Admin: 12/27/17 21:30 Dose: 40 mg Magnesium Hydroxide (Milk Of Magnesia) 30 ml PO DAILY PRN PRN Reason: Constipation Magnesium Oxide (Mag-Ox 400) [facility] Nitroglycerin (Nitrostat) 0.4 mg SUBLINGUAL Q5M PRN PRN Reason: Chest Pain Ondansetron HCl (Zofran) 4 mg IV Q8H PRN PRN PRN Reason: NAUSEA Last Admin: 12/28/17 07:59 Dose: 4 mg Pantoprazole Sodium (Protonix) 40 mg PO DAILY [facility] Polyethylene Glycol (Miralax) 17 gm PO DAILY [facility] Polysaccharide Iron Complex (Ferrex 150) 150 mg PO QODAY [facility] Sodium Chloride () 5 - 30 ml IV UD PRN PRN Reason: SALINE FLUSH Last Admin: 12/27/17 22:49 Dose: 20 ml Tramadol HCl (Ultram) 50 mg PO Q6H PRN PRN PRN Reason: PAIN Warfarin Sodium (Coumadin (Pbkc)) 2.5 mg PO DAILY@1700 [facility] Last Admin: 12/27/17 16:01 Dose: 2.5 mg Medical Necessity - Tobacco Use Smoking Status: Never smoker Assessment/Plan All Active Problems (Last Reviewed 11/20/17 @ 18:03 by Graciela Andrew, LAURENCE-C) HCAP (healthcare-associated pneumonia) (Acute) History of hip replacement (Resolved) Surgical site infection (Resolved) multilobar HCAP (Acute) Acute respiratory failure with hypoxia (Acute) CHF (congestive heart failure) (Acute) Neck swelling (Acute) Accelerated hypertension (Resolved) Chest pain (Resolved) DVT of lower extremity (deep venous thrombosis) (Resolved) Nephrolithiasis (Resolved) 1. SOB/Weakness/HCAP/COPD - Difficult to discern the exact etiology of her symptoms - c/w antibiotics, she received levaquin in the ER, switched to zosyn/cipro () - strep and legionella antigen are negative - Will do paola stein - Will hold of on IVF at the moment and she is doing well and is not septic - Her pro-BNP was slightly elevated though not really above her baseline, however given the persistent crackles, will give a daily IV lasix - Lactate was 2 on admission and her troponin was negative - c/w with her O2, she is usually on 2-3 L NC at home - CXR pending 2. Ischemic cardiomyopathy with diastolic CHF/A-fib/CAD s/p CABG and aortic valve repair/HLD - C/w coumadin and watch INR while on abx - Lasix daily - Tele monitoring - c/w coreg, lipitor 3. GERD/Nausea - c/w pepcid - Will start a bowel regimen with colace and miralax to facilitate her BM 4. Depression/Anxiety - stable - c/w celexa 5. Hyperkalemia - potassium is normal today - Monitor electrolytes DVT: Lovenox Diet: Cardiac Code: DNR Dispo: PCU Code Visit Inpatient E&M: 34209 Subs Hosp L2
[2017-12-28] MEDS: Furosemide 40 MG/4 ML Vial IV (09:35)
[2017-12-28] MEDS: Polyethylene Glycol 3350 17 GM PACKET PO (09:35)
--- NOTE | 2017-12-28 09:40 | CASEMGMT ---
According to [facility], pt is current with them for RN, PT/OT. Resumption of care order placed at this time. CM to follow for any further discharge planning/needs. SStaten RN CM
--- NOTE | 2017-12-28 10:15 | CASEMGMT ---
Addendum entered by Indy Ruiz 12/28/17 11:49: Received a voice mail from Dayana at Palliative care and they have a meeting with family at today. Indy SOTO Original Note: TRACIE called Palliative Care with referral as well as faxed over information. Indy BOTELLO MSW
[2017-12-28 10:34] LABS: Phosphorus 3.8 mg/dL (2.5-4.9)
--- NOTE | 2017-12-28 11:58 | PN_ITS ---
Patient Problems: Active and Suspected Problems (Last Reviewed 11/20/17 @ 18:03 by BETTIE Shah) HCAP (healthcare-associated pneumonia) (Acute) Subjective: Patient feels subjectively improved compared to yesterday. Oxygenation is slightly improved compared to yesterday. Patient denies any productive cough. Patient has had some nausea, but reports she has not had a BM in a few days. Patient did have a KUB and chest x-ray just prior to my evaluation. Objective: Chest x-ray was personally reviewed and shows interstitial fibrotic changes. KUB shows retained stool. - Physical Exam General: Alert, Oriented x3, Cooperative HEENT: Atraumatic, PERRLA, EOMI, Normocephalic, - - No scleral icterus or injection noted. Oral: Moist Mucosa, No Gingival or Mucosal Lesions/ Ulcerations Neck: Supple, No JVD, No Nodes, Trachea Midline Lungs: No rhonchi, No wheeze, Diminished, Rales - Bilateral, - - Symmetric expansion. No dullness to percussion. Cardiovascular: Normal S1, Normal S2, Irregular Rate, Murmur - Grade 2 out of 6 systolic ejection murmur at the right sternal border, No rub noted, No Gallop Abdomen: Bowel Sounds Present, Soft, Non-Distended, Tender - Mild to left lower quadrant with the palpation Extremities: No clubbing, No cyanosis, No edema Skin: No rashes, No breakdown Musculoskeletal: No Tenderness to Palpation of Joints or Extremities Lymphatic: No Cervical, Supraclavicular, or Inguinal Adenopathy Neurological: Cranial nerves II-XII grossly intact, Neuro grossly intact Psych/Mental Status: Normal Affect, Appropriate Vital Signs Temp Pulse Resp BP Pulse Ox 37.6 C H 72 23 H 117/59 L 93 12/28/17 11:00 12/28/17 11:11 12/28/17 11:11 12/28/17 11:00 12/28/17 11:00 Oxygen Flow Rate (L/min) 3.5 Oxygen Delivery Method Nasal Cannula Weight: 64 kg Intake and Output for Last 24 Hours 12/26/17 12/27/17 12/28/17 23:59 23:59 23:59 Intake Total 299 / 299 2082.1 / 2082.1 891.8 / 891.8 Output Total 3040 / 3040 700 / 700 Balance 299 / 299 -957.9 / -957.9 191.8 / 191.8 Microbiology Past 72 Hours 12/27/17 07:55 Respiratory Panel (PCR) - Final Mucosa - Nose 12/27/17 12:00 Streptococcus pneumoniae Antigen (M - Final Urine Catheter - Catheter 12/27/17 12:00 Legionella Antigen - Final Urine Catheter - Catheter Laboratory Tests Past 24 Hrs 12/28/17 12/28/17 12/28/17 05:00 05:00 05:00 WBC 7.3 RBC 2.84 L Hgb 8.1 L Hct 26.2 L MCV 92.3 MCH 28.5 MCHC 30.9 L RDW 16.0 H RDW Differential 51.8 H Plt Count 205 MPV 10.3 Immature Gran % (Auto) 0.100 Neut % (Auto) 77.9 H Lymph % (Auto) 6.[address] [place] % (Auto) 12.1 H Eos % (Auto) 3.5 Baso % (Auto) 0.4 Absolute Neuts (auto) 5.7 Absolute Lymphs (auto) 0.44 L Total Counted Not Reportable Differential Comment SCANNED PT 23.1 H INR 2.0 Sodium 138 Potassium 2.7 L* Chloride 97 L Carbon Dioxide 30.0 Anion Gap 11 BUN 10 Creatinine 0.56 Estim Creat Clear Calc 35.49 Est GFR (MDRD) Af Amer 133 Est GFR (MDRD) Non-Af 110 BUN/Creatinine Ratio 17.8 Glucose 99 Calcium 8.2 L Phosphorus Magnesium 1.6 12/28/17 05:00 WBC RBC Hgb Hct MCV MCH MCHC RDW RDW Differential Plt Count MPV Immature Gran % (Auto) Neut % (Auto) Lymph % (Auto) [place] % (Auto) Eos % (Auto) Baso % (Auto) Absolute Neuts (auto) Absolute Lymphs (auto) Total Counted Differential Comment PT INR Sodium Potassium Chloride Carbon Dioxide Anion Gap BUN Creatinine Estim Creat Clear Calc Est GFR (MDRD) Af Amer Est GFR (MDRD) Non-Af BUN/Creatinine Ratio Glucose Calcium Phosphorus 3.8 Magnesium Medical Necessity - Tobacco Use Smoking Status: Never smoker Assessment/Plan All Active Problems (Last Reviewed 11/20/17 @ 18:03 by Graciela Andrew NP-C) HCAP (healthcare-associated pneumonia) (Acute) History of hip replacement (Resolved) Surgical site infection (Resolved) multilobar HCAP (Acute) Acute respiratory failure with hypoxia (Acute) CHF (congestive heart failure) (Acute) Neck swelling (Acute) Accelerated hypertension (Resolved) Chest pain (Resolved) DVT of lower extremity (deep venous thrombosis) (Resolved) Nephrolithiasis (Resolved) RECOMMENDATIONS: 1. Agree with continuing broad-spectrum antibiotics until culture negative 2. Increase activity as tolerated 3. Obtain and send sputum for culture. 4. Consider bowel regimen 5. Wean supplemental oxygen to maintain saturations at or above 90%. IMPRESSIONS: 1. Acute on chronic hypoxic respiratory failure Patient with extensive infiltrative process at the end of September. Current imaging shows possible fibrotic changes following acute infection. Patient did receive Lasix yesterday with some improvement. Viral panel, Legionella and strep have all been negative. Would continue with broad-spectrum antibiotics until cultures are negative. Possibly obtain a repeat CT scan in the future if patient is not improving. 2. Heart failure with preserved ejection fraction/ischemic cardiomyopathy status post CABG/history of aortic valve replacement/pulmonary hypertension Start Lovenox given subtherapeutic INR. Significant hypokalemia likely secondary to IV Lasix dosing yesterday. Supplementation has been ordered. 3. Advanced age and deconditioning/hypertension/hyperlipidemia/GERD/ depression Complicates care, management, recovery and prognosis. Likely okay to continue home medications as indicated. Evaluation by palliative care is currently pending. CODE STATUS is DNR [facility]. This note was generated with [employer] dictation software. It may contain incorrect words, spelling, and punctuation that were not noted in checking the note before signing. Code Visit Inpatient E&M: [id number] [facility] L3
[2017-12-28 12:49] LABS: Anion Gap 8 (5-15); BUN 10 mg/dL (7-18); Calcium,Total 8.4 mg/dL (8.5-10.1); Chloride 95 mmol/L (98-107); Creatinine, Serum 0.62 mg/dL (0.55-1.02); EST Glomerular Filtration Rate 97 mL/min (>60); Est Glom Filt Rate - Afr Amer 118 mL/min (>60); Estimated Creatinine Clearance 35.49 ml/min; Glucose 105 mg/dL (74-106); Potassium 3.1 mmol/L (3.5-5.1); Sodium Level 135 mmol/L (136-145)
--- NOTE | 2017-12-28 14:34 | CASEMGMT ---
Per Juhi at [facility], pt agrees to Palliative Care at this time. SStandrew ALEXANDER CM
[2017-12-28 21:15] LABS: Anion Gap 5 (5-15); BUN 9 mg/dL (7-18); BUN/Creat Ratio 15.5 RATIO (10-20); Calcium,Total 8.2 mg/dL (8.5-10.1); Chloride 98 mmol/L (98-107); Creatinine, Serum 0.58 mg/dL (0.55-1.02); EST Glomerular Filtration Rate 106 mL/min (>60); Est Glom Filt Rate - Afr Amer 128 mL/min (>60); Estimated Creatinine Clearance 35.49 ml/min; Glucose 99 mg/dL (74-106); Magnesium 2.1 mg/dL (1.6-2.6); Potassium 3.5 mmol/L (3.5-5.1); Sodium Level 135 mmol/L (136-145)
[2017-12-28] MEDS: 0.9% NaCl Peripheral Flush Adult/Peds IV (21:37)
[2017-12-28] MEDS: Carvedilol 25 MG Tablet PO (21:37)
[2017-12-28] MEDS: Lisinopril 40 MG Tablet PO (21:37)
[2017-12-28] MEDS: Atorvastatin Calcium 20 MG Tablet PO (21:38)
[2017-12-28] MEDS: Gabapentin 100 MG Capsule 200 MG PO (21:38)
[2017-12-28] MEDS: Docusate Sodium 100 MG Capsule PO (21:38)
[2017-12-29 03:00] VITALS: PULSE 88
[2017-12-29 04:46] VITALS: BP 97/59; PULSE 84; RESP 20; TEMP 36.9; O2SAT 96
[2017-12-29 06:28] LABS: International Normalized Ratio 1.6; Prothrombin Time (Protime)PT. 19.1 SECONDS (11.7-14.9)
[2017-12-29 06:39] LABS: Anion Gap 11 (5-15); BUN 11 mg/dL (7-18); BUN/Creat Ratio 21.3 RATIO (10-20); Calcium,Total 8.4 mg/dL (8.5-10.1); Chloride 99 mmol/L (98-107); Creatinine, Serum 0.52 mg/dL (0.55-1.02); EST Glomerular Filtration Rate 121 mL/min (>60); Est Glom Filt Rate - Afr Amer 147 mL/min (>60); Estimated Creatinine Clearance 35.49 ml/min; Glucose 77 mg/dL (74-106); Magnesium 2.2 mg/dL (1.6-2.6); Potassium 3.6 mmol/L (3.5-5.1); Sodium Level 138 mmol/L (136-145)
[2017-12-29 07:01] VITALS: PULSE 95; RESP 16; O2SAT 91
[2017-12-29] MEDS: Ipratropium/Albuterol Sulfate 3 ML AMPUL.NEB INHALATION (07:01)
[2017-12-29 07:05] VITALS: PULSE 93
[2017-12-29] MEDS: Acetaminophen 325 MG Tablet 650 MG PO (07:20)
[2017-12-29] MEDS: Gabapentin 100 MG Capsule PO ×2 (07:21→12:50)
[2017-12-29] MEDS: Aspirin E.C. 81 MG Tablet PO (07:21)
[2017-12-29] MEDS: Magnesium Oxide 400 MG Tablet PO (07:21)
--- NOTE | 2017-12-29 07:46 | PCM.PROGNOTE ---
Patient Problems: Active and Suspected Problems (Last Reviewed 11/20/17 @ 18:03 by BETTIE Shah) HCAP (healthcare-associated pneumonia) (Acute) Subjective: Patient did well overnight. Patient reports subjective improvement in dyspnea compared to yesterday. Patient denies any chest pain. Patient has had intermittent cough with no production reported. Patient is on her baseline 3.5 L nasal cannula oxygen. No bleeding has been reported. - Physical Exam General: Alert, Oriented x3, Cooperative, No apparent distress, - - Appears stated age. Speaking in full sentences. HEENT: Atraumatic, PERRLA, EOMI, Normocephalic, - - No scleral icterus or injection noted. No epistaxis noted. Oral: Moist Mucosa, No Gingival or Mucosal Lesions/ Ulcerations Neck: Supple, No Nodes, Trachea Midline Lungs: No rhonchi, No wheeze, Diminished, Rales, - - Symmetric expansion. No dullness to percussion. Cardiovascular: Normal S1, Normal S2, Irregular Rate, Murmur - Grade 3 out of 6 systolic ejection murmur at the left lower sternal border, No rub noted, No Gallop Abdomen: Bowel Sounds Present, Soft, Non Tender, Non-Distended Extremities: No clubbing, No cyanosis, No edema, Capillary Refill Less than 3 Seconds Skin: No rashes, No breakdown Musculoskeletal: No Tenderness to Palpation of Joints or Extremities Lymphatic: No Cervical, Supraclavicular, or Inguinal Adenopathy Neurological: Cranial nerves II-XII grossly intact, Neuro grossly intact, Motor Exam 5/5 strength throughout Psych/Mental Status: Alert and oriented to time, place, person, mood and affect Vital Signs Temp Pulse Resp BP Pulse Ox 36.9 C 93 20 H 97/59 L 96 12/29/17 04:46 12/29/17 07:05 12/29/17 04:46 12/29/17 04:46 12/29/17 04:46 Oxygen Flow Rate (L/min) 3.5 Oxygen Delivery Method Nasal Cannula Weight: 65.3 kg Intake and Output for Last 24 Hours 12/27/17 12/28/17 12/29/17 23:59 23:59 23:59 Intake Total 2082.1 / 2082.1 2237.8 / 2237.8 Output Total 3040 / 3040 1200 / 1200 100 / 100 Balance -957.9 / -957.9 1037.8 / 1037.8 -100 / -100 Microbiology Past 72 Hours 12/27/17 07:55 Respiratory Panel (PCR) - Final Mucosa - Nose 12/27/17 12:00 Streptococcus pneumoniae Antigen (M - Final Urine Catheter - Catheter 12/27/17 12:00 Legionella Antigen - Final Urine Catheter - Catheter Laboratory Tests Past 24 Hrs 12/28/17 12/28/17 12/28/17 05:00 12:00 20:31 PT INR Sodium 135 L 135 L Potassium 3.1 L 3.5 Chloride 95 L 98 Carbon Dioxide 32.0 32.0 Anion Gap 8 5 BUN 10 9 Creatinine 0.62 0.58 Estim Creat Clear Calc 35.49 35.49 Est GFR (MDRD) Af Amer 118 128 Est GFR (MDRD) Non-Af 97 106 BUN/Creatinine Ratio 16.0 15.5 Glucose 105 99 Calcium 8.4 L 8.2 L Phosphorus 3.8 Magnesium 2.1 12/29/17 12/29/17 05:15 05:15 PT 19.1 H INR 1.6 Sodium 138 Potassium 3.6 Chloride 99 Carbon Dioxide 28.0 Anion Gap 11 BUN 11 Creatinine 0.52 L Estim Creat Clear Calc 35.49 Est GFR (MDRD) Af Amer 147 Est GFR (MDRD) Non-Af 121 BUN/Creatinine Ratio 21.3 H Glucose 77 Calcium 8.4 L Phosphorus Magnesium 2.2 Medical Necessity - Tobacco Use Smoking Status: Never smoker Assessment/Plan All Active Problems (Last Reviewed 11/20/17 @ 18:03 by Graciela Andrew, LAURENCE-C) HCAP (healthcare-associated pneumonia) (Acute) History of hip replacement (Resolved) Surgical site infection (Resolved) multilobar HCAP (Acute) Acute respiratory failure with hypoxia (Acute) CHF (congestive heart failure) (Acute) Neck swelling (Acute) Accelerated hypertension (Resolved) Chest pain (Resolved) DVT of lower extremity (deep venous thrombosis) (Resolved) Nephrolithiasis (Resolved) RECOMMENDATIONS: 1. Agree with continuing broad-spectrum antibiotics until culture negative 2. Increase activity as tolerated 3. Continue with anticoagulation 4. Consider bowel regimen 5. Wean supplemental oxygen to maintain saturations at or above 90%. IMPRESSIONS: 1. Acute on chronic hypoxic respiratory failure Patient with extensive infiltrative process at the end of September. Current imaging shows possible fibrotic changes following acute infection. Patient did receive Lasix previously with some improvement. Viral panel, Legionella and strep have all been negative. Would continue with broad-spectrum antibiotics until cultures are negative. Possibly obtain a repeat CT scan in the future if patient is not improving. 2. Heart failure with preserved ejection fraction/ischemic cardiomyopathy status post CABG/history of aortic valve replacement/pulmonary hypertension Start Lovenox given subtherapeutic INR. Continue to monitor electrolytes with replacement as indicated 3. Advanced age and deconditioning/hypertension/hyperlipidemia/GERD/depression Complicates care, management, recovery and prognosis. Likely okay to continue home medications as indicated. Evaluation by palliative care is currently pending. CODE STATUS is DNR CCA. This note was generated with [employer] dictation software. It may contain incorrect words, spelling, and punctuation that were not noted in checking the note before signing. Code Visit Inpatient E&M: 22318 Subs Hosp L2
[2017-12-29] MEDS: Docusate Sodium 100 MG Capsule PO (09:17)
[2017-12-29] MEDS: Furosemide 40 MG/4 ML Vial IV (09:18)
[2017-12-29] MEDS: Escitalopram Oxalate 10 MG Tablet PO (09:18)
[2017-12-29] MEDS: Carvedilol 25 MG Tablet PO (09:18)
[2017-12-29] MEDS: Famotidine 20 MG Tablet PO (09:19)
[2017-12-29] MEDS: Polyethylene Glycol 3350 17 GM PACKET PO (09:19)
[2017-12-29] MEDS: amLODIPine 5 MG Tablet PO (09:19)
[2017-12-29] MEDS: Pantoprazole Sodium 40 MG Tablet PO (09:20)
[2017-12-29] MEDS: Enoxaparin 40 MG/0.4 ML Syringe SC (09:22)
--- NOTE | 2017-12-29 10:29 | CASEMGMT ---
TRACIE spoke with patient's twin sister, Savannah per her request. She just returned from [place]. She asked about Palliative Care as patient and her daughters were not sure what it is. SW explained Palliative Care to her and asked if she would like Palliative Care to come back and answer questions. She did not think that is necessary. She also expressed that patient's daughters are the ones providing most of the care at home and they all have health problems. She said she is uneasy about patient going home at d/c. TRACIE told her SW will look at her PT/OT notes from today and talk with patient about how she feels. She thanked TRACIE for listening. Indy BOTELLO MSW
[2017-12-29 10:46] VITALS: BP 100/59; PULSE 89; RESP 20; TEMP 36.9; O2SAT 97
[2017-12-29 11:02] VITALS: PULSE 98
--- NOTE | 2017-12-29 12:33 | PCM.PN.HOSP ---
Patient Problems: Active and Suspected Problems (Last Reviewed 11/20/17 @ 18:03 by BETTIE Shah) HCAP (healthcare-associated pneumonia) (Acute) Subjective: Feels a littler better than yesterday. She feels weak and family is concerned that they may not be able to take her home this debilitated. Objective: General: Alert, Oriented x3, Cooperative, No apparent distress HEENT: Atraumatic, EOMI, Normocephalic Oral: Moist Mucosa Neck: Supple, No JVD Lungs: Normal air movement, Rhonchi at the bases stable, Short of Breath Cardiovascular: Regular rate, irregular Rhythm, Normal S1, Normal S2, No murmurs Abdomen: Soft, Non Tender, Non-Distended, No Hepato-splenomegaly Skin: No rashes, No breakdown Psych/Mental Status: Normal Affect, Appropriate Vitals/I&O's: Vital Signs Temp Pulse Resp BP Pulse Ox 98.4 F 98 20 H 100/59 L 97 12/29/17 10:46 12/29/17 11:02 12/29/17 10:46 12/29/17 10:46 12/29/17 10:46 Oxygen Flow Rate (L/min) 3.5 Oxygen Delivery Method Venturi Mask Weight: 143 lb 15.39 oz Intake and Output for Last 24 Hours 12/27/17 12/28/17 12/29/17 23:59 23:59 23:59 Intake Total 2082.1 / 2082.1 2237.8 / 2237.8 240 / 240 Output Total 3040 / 3040 1200 / 1200 100 / 100 Balance -957.9 / -957.9 1037.8 / 1037.8 140 / 140 Microbiology Past 72 Hours 12/27/17 07:55 Mucosa - Nose Respiratory Panel (PCR) - Final 12/27/17 12:00 Urine Catheter - Catheter Streptococcus pneumoniae Antigen (M - Final 12/27/17 12:00 Urine Catheter - Catheter Legionella Antigen - Final Laboratory Results 12/28/17 12:00: Sodium 135 L, Potassium 3.1 L, Chloride 95 L, Carbon Dioxide 32.0, Anion Gap 8, BUN 10, Creatinine 0.62, Estim Creat Clear Calc 35.49, Est GFR (MDRD) Af Amer 118, Est GFR (MDRD) Non-Af 97, BUN/Creatinine Ratio 16.0, Glucose 105, Calcium 8.4 L 12/28/17 20:31: Sodium 135 L, Potassium 3.5, Chloride 98, Carbon Dioxide 32.0, Anion Gap 5, BUN 9, Creatinine 0.58, Estim Creat Clear Calc 35.49, Est GFR (MDRD) Af Amer 128, Est GFR (MDRD) Non-Af 106, BUN/Creatinine Ratio 15.5, Glucose 99, Calcium 8.2 L, Magnesium 2.1 12/29/17 05:15: PT 19.1 H, INR 1.6 12/29/17 05:15: Sodium 138, Potassium 3.6, Chloride 99, Carbon Dioxide 28.0, Anion Gap 11, BUN 11, Creatinine 0.52 L, Estim Creat Clear Calc 35.49, Est GFR (MDRD) Af Amer 147, Est GFR (MDRD) Non-Af 121, BUN/Creatinine Ratio 21.3 H, Glucose 77, Calcium 8.4 L, Magnesium 2.2 Current Medications Acetaminophen (Tylenol) 650 mg PO Q4H PRN PRN PRN Reason: FEVER Last Admin: 12/29/17 07:20 Dose: 650 mg Albuterol/Ipratropium (Duoneb) 3 ml INHALATION Q4HWA.RT [facility] Last Admin: 12/29/17 10:53 Dose: Not Given Amlodipine Besylate (Norvasc) 5 mg PO DAILY [facility] Last Admin: 12/29/17 09:19 Dose: 5 mg Aspirin (Ecotrin) 81 mg PO DAILY@0800 [facility] Last Admin: 12/29/17 07:21 Dose: 81 mg Atorvastatin Calcium (Lipitor) 20 mg PO QHS [facility] Last Admin: 12/28/17 21:38 Dose: 20 mg Carvedilol (Coreg) 25 mg PO BID [facility] Last Admin: 12/29/17 09:18 Dose: 25 mg Cholecalcifer[facility] ([facility]itamin [facility]) [facility] Admin: 12/29/17 07:21 Dose: 1,000 unit Docusate Sodium (Colace) 100 mg PO BID [facility] Last Admin: 12/29/17 09:17 Dose: 100 mg Enoxaparin Sodium (Lovenox) 40 mg SC DAILY [facility] Last Admin: 12/29/17 09:22 Dose: 40 mg Escitalopram Oxalate (Lexapro) 10 mg PO DAILY [facility] Last Admin: 12/29/17 09:18 Dose: 10 mg Famotidine (Pepcid) 20 mg PO DAILY [facility] Last Admin: 12/29/17 09:19 Dose: 20 mg Furosemide (Lasix) 40 mg IV DAILY [facility] Last Admin: 12/29/17 09:18 Dose: 40 mg Gabapentin (Neurontin) 100 mg PO LUNCH [facility] Last Admin: 12/28/17 11:26 Dose: Not Given Gabapentin (Neurontin) 100 mg PO BREAKFAST [facility] Last Admin: 12/29/17 07:21 Dose: 100 mg Gabapentin (Neurontin) 200 mg PO QHS [facility] Last Admin: 12/28/17 21:38 Dose: 200 mg Cefepime HCl 2 gm/ Sodium (Chloride) 100 mls @ 200 mls/hr IV Q12 [facility] Last Admin: 12/29/17 09:18 Dose: 200 mls/hr Lisinopril (Zestril) 40 mg PO QHS [facility] Last Admin: 12/28/17 21:37 Dose: 40 mg Magnesium Hydroxide (Milk Of Magnesia) 30 ml PO DAILY PRN PRN Reason: Constipation Magnesium Oxide ([facility]-Ox 400) [facility] Admin: 12/29/17 07:21 Dose: 400 mg Nitroglycerin (Nitrostat) 0.4 mg SUBLINGUAL Q5M PRN PRN Reason: Chest Pain Ondansetron HCl (Zofran) 4 mg IV Q8H PRN PRN PRN Reason: NAUSEA Last Admin: 12/28/17 07:59 Dose: 4 mg Pantoprazole Sodium (Protonix) 40 mg PO DAILY [facility] Last Admin: 12/29/17 09:20 Dose: 40 mg Polyethylene Glycol (Miralax) 17 gm PO DAILY [facility] Last Admin: 12/29/17 09:19 Dose: 17 gm Polysaccharide Iron Complex (Ferrex 150) 150 mg PO QODAY [facility] Last Admin: 12/28/17 09:34 Dose: Not Given Sodium Chloride () 5 - 30 ml IV UD PRN PRN Reason: SALINE FLUSH Last Admin: 12/28/17 21:37 Dose: 10 ml Tramadol HCl (Ultram) 50 mg PO Q6H PRN PRN PRN Reason: PAIN Warfarin Sodium (Coumadin (Pbkc)) 2.5 mg PO DAILY@1700 [facility] Last Admin: 12/28/17 16:48 Dose: 2.5 mg Medical Necessity - Tobacco Use Smoking Status: Never smoker Assessment/Plan All Active Problems (Last Reviewed 11/20/17 @ 18:03 by Graciela Andrew NP-C) HCAP (healthcare-associated pneumonia) (Acute) History of hip replacement (Resolved) Surgical site infection (Resolved) multilobar HCAP (Acute) Acute respiratory failure with hypoxia (Acute) CHF (congestive heart failure) (Acute) Neck swelling (Acute) Accelerated hypertension (Resolved) Chest pain (Resolved) DVT of lower extremity (deep venous thrombosis) (Resolved) Nephrolithiasis (Resolved) 1. SOB/Weakness/HCAP/COPD - Difficult to discern the exact etiology of her symptoms - c/w antibiotics, she received levaquin in the ER, switched to zosyn/cipro (12/26), no on cefepime only which she can continue with a stop date of 01/03 - strep and legionella antigen are negative - Will do sarita, appreciate pulm recs, may add an inhaled steroid - Her pro-BNP was slightly elevated though not really above her baseline, however given the persistent crackles, will give a daily IV lasix - Lactate was 2 on admission and her troponin was negative - c/w with her O2, she is usually on 2-3 L NC at home - Will likely need SNF placement, discussed advanced care planning about SNF placement vs palliative care at home for 20 min 2. ischemic cardiomyopathy with acute on chronic diastolic CHF/A-fib/CAD s/p CABG and aortic valve repair/HLD - C/w coumadin and watch INR while on abx - Lasix daily - Tele monitoring - c/w coreg, lipitor 3. GERD/Nausea - c/w pepcid - c/w bowel regimen with colace and miralax to facilitate her BM 4. Depression/Anxiety - stable - c/w celexa 5. Hyperkalemia - potassium is normal today - Monitor electrolytes DVT: Lovenox Diet: Cardiac Code: DNR Dispo: SNF for PT then home with palliative care Code Visit Inpatient E&M: 49432 Subs Hosp L2 Procedures: 85366 Advncd Care Plan 30 Min
--- NOTE | 2017-12-29 12:58 | CASEMGMT ---
Social Work: SW notified that patient is interested in short term chcf placement for strengthening. Met with patient and sister Savannah. Patient states that she has been at [facility] PCU in the past and would like to return there is able. Patient giving this SW permission to call daughter Teresa to update. TC to daughter Teresa. Teresa aware that patient is requesting TCU at D/C. Teresa states that family agrees with this plan. TC to Jeanine on the referral line. Jeanine to call this SW back to verify if a bed is available for patient. SW to follow to assist as needed with D/C planning. PLAN:Patient to be discharged to TCU for skilled care once accepted and when patient is medically ready. SHARLENE Montes De Oca
--- NOTE | 2017-12-29 14:44 | CHAPLAIN ---
Type of Pastoral Visit _x__ Initial Visit ___ Follow-up Visit ___ On-call Visit ___ General Patient Visit ___ Spiritual Assessment ___ Family Conference ___ Bereavement ___ Rapid Response ___ Code Blue ___ Other (describe below) Pastoral Care Referral From _x__ Patient ___ Family ___ Nurse ___ Physician ___ Sand Worker ___ Link Trainer Teacher ___ Other (describe below) Sacrament/Intervention _x__ Active listening ___ Anointing ___ Judaism ___ Bereavement ___ Communion _x__ Yaneth exploration ___ ___ Life review _x__ Prayer ___ Reconciliation ___ Sacrament of Sick ___ Supportive presence ___ Wedding ___ Other (describe below) Pastoral Comments
--- NOTE | 2017-12-29 14:59 | PCM.TXEXTCAR ---
- Diet Cardiac/Carb Control - Routine Orders/Code Status Routine Lab Work: INR Code Status: DNRCC-A - Wound(s) Coccyx Wound Type: Pressure Injury - Therapies Physical Therapy: Eval and Treat Occupational Therapy: Eval and Treat - Problem/Diagnosis (1) HCAP (healthcare-associated pneumonia) Status: Acute Current Visit: Yes (2) Paroxysmal atrial fibrillation Status: Chronic Current Visit: No (3) Dyspnea on exertion Status: Chronic Current Visit: No (4) Hyperlipidemia Status: Chronic Current Visit: No (5) HTN (hypertension) Status: Chronic Current Visit: No - Allergies/Procedures Done in Hospital Allergies/Adverse Reactions: Allergies adhesive Allergy (Verified 11/20/17 09:14) Unknown etodolac Allergy (Verified 11/20/17 09:14) Unknown nitroglycerin Allergy (Verified 11/20/17 09:14) Unknown oxycodone HCl [From Percocet] Allergy (Verified 11/20/17 09:14) Unknown phenobarbital Allergy (Verified 11/20/17 09:14) Unknown tolmetin sodium [From Tolectin] Allergy (Verified 11/20/17 09:14) Unknown venlafaxine Allergy (Verified 11/20/17 09:14) Unknown nitropatch Allergy (Uncoded 11/20/17 09:14) unknown - Type of Care/Length of Stay Estimated LOS: Convalescent Care Less Than 30 days Type of Care Needed: Skilled Rehab Potential: Fair Prognosis: Fair - Additional Orders/Day of Discharge Day of Discharge: 12/29/17 - Dietary and Speech Recommendations Dietitian Recommendations/Changes: Rec liberalize diet to regular, low sodium d/t poor intake. Will provide Ensure Enlive w/ meals for additional calories/protein if consumed. - Follow Up Care Primary Care Physician: Bijan Austin MD [Primary Care Provider] - Please follow up with your Primary Care Physician in: in 3-5 days Please Follow Up With: Bijan Austin MD
--- NOTE | 2017-12-29 15:00 | CASEMGMT ---
TRACIE spoke with Jeanine regarding TCU. They will have a bed for patient and can take her today. TRACIE notified physician. He called patient's daughter and left her a voice mail letting her know about patient going to TCU today. Per insulation cupola charger patient's daughter called in and said it is okay for patient to go to TCU today. TRACIE notified physician. Plan: [facility] TCU under skilled level of care. Indy BOTELLO MSW
--- NOTE | 2017-12-29 15:03 | PCM.DC.SUM ---
Discharge Date and Diagnosis - Problem List Patient Problems: Active and Suspected Problems (Last Reviewed 11/20/17 @ 18:03 by BETTIE Shah) HCAP (healthcare-associated pneumonia) (Acute) Date of Admission: 12/26/17 Date of Discharge: 12/29/17 - Primary Discharge Diagnosis Active and Suspected Problems (Last Reviewed 11/20/17 @ 18:03 by BETTIE Shah) HCAP (healthcare-associated pneumonia) (Acute) - Secondary Discharge Diagnosis Chronic Problems (Last Reviewed 11/20/17 @ 18:03 by BETTIE Shah) Pulmonary hypertension (Chronic) RVSP 66 mmHg Cardiomyopathy (Chronic) Ischemic cardiomyopathy (Chronic) Paroxysmal atrial fibrillation (Chronic) 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) Hyperthyroidism (Chronic) Hypokalemia (Chronic) Atherosclerotic heart disease of [place] coronary artery without angina pectoris (Chronic) CABG x1 RANDLE-LAD x/Aortic Valve Replacement Left bundle-branch block (Chronic) Nonrheumatic aortic valve stenosis (Chronic) HTN (hypertension) (Chronic) Other chest pain (Chronic) Presence of aortocoronary bypass graft (Chronic) Dyspnea on exertion (Chronic) Fatigue (Chronic) Chronic pulmonary heart disease (Chronic) CVA (cerebral infarction) (Chronic) Hyperlipidemia (Chronic) Paroxysmal ventricular tachycardia (Chronic) HTN (hypertension) (Chronic) Hypothyroidism associated with surgical procedure (Chronic) had a subtotal thyroidectomy for goiter Hemorrhoids (Chronic) Restless leg syndrome (Chronic) TIA (transient ischemic attack) (Chronic) multiple History of aortic valve replacement with bioprosthetic valve (Chronic) Hospital Course and Treatment Imaging Results: CXR: FINDINGS: Left-sided pacemaker. The lungs are expanded. Stable pulmonary vascular congestion. There is no demonstrated pleural abnormality. Normal size heart. Patient status post sternotomy. Normal mediastinum and kathy. Normal visualized pulmonary arteries. Normal visualized aortic arch and descending thoracic aorta. Normal visualized thoracic spine. Normal visualized ribs, clavicles, and shoulders. There is no demonstrated abnormality of the visualized soft tissue structures of the upper abdomen. Consults: Pulmonology Operations: None Procedures: None Summary of Care Provided: HPI: The patient is a 82 year old F with a significant h/o a-fib, ischemic cardiomyopathy with diastolic dysfunction and right sided systolic dysfunction on echo, pulm htn, pulmonary fibrosis and recent pneumonia who presents from home with increasing SOB, weakness, and JIMÉNEZ. Her daughters rotate taking care of her and have noticed a significant decline over the last week. She has not had a fever, but she has had a productive cough. She denies chest pain and has not had any edema, or recent weight gain. CXR in the ER demonstrated worsening effusion with diminished air spaces and vascular congestion and pulmonary fibrosis. Hospital Course: 1. SOB/Weakness/HCAP/COPD - On presentation it was felt that her symptoms were d/t pneumonia and she was started on cipro/zosyn for hospital acquired pneumonia and ultimately transitioned to cefepime with a stop date on 01/03. As her symptoms did not improve significantly she was also started on diuretics which did ultimately decrease her increased oxygen requirement from 3L NC to 6L NC back to her baseline of 3L NC. She was continued and discharged on duonebs as well as inhaled budesonide in the hopes that the previous lung scarring seen on CT would be treated. 2. ischemic cardiomyopathy with acute on chronic diastolic CHF/A-fib/CAD s/p CABG and aortic valve repair/HLD - initially since her pro-BNP was not significantly elevated it was thought her condition was d/t pneumonia, however when her O2 requirements increase, she was started on diuretics which did help her respiratory status. Her last echo was in September 2017 and demonstrated diastolic heart failure with a normal EF therefore she does not require the standard therapy for heart failure. C/w her coreg, lasix, and lipitor. She will need daily INR to monitor her coumadin which is 4.5 mg daily. 3. Episode of Nausea - She was given zofran which did help slightly but she was started on a bowel regimen of miralax and colace which should be continued as this caused her to have a small BM which relieved some of her discomfort. 4. Advanced care planning - I have had multiple extensive conversations with the family about care at home. They understand the difficulty of taking her home in the condition she is currently in. They also understand that they may need to decide on hospice in the near future which they seem ok with if necessary. Otherwise they have discussed palliative care which is available after discharge from SNF. Discharge Diet: No Restrictions Discharge Activity: No Restrictions Home Medications: Medications to take at Discharge Magnesium Oxide [Mag-Ox 400] 400 mg PO DAILY 05/09/16 Nitroglycerin [Nitrostat] 0.4 mg SUBLINGUAL Q5M PRN 09/20/15 gabapentin 100 mg capsule 100 mg PO BREAKFAST 05/05/17 amlodipine 5 mg tablet 5 mg PO DAILY 06/23/17 atorvastatin 40 mg tablet 20 mg PO QHS tab 06/23/17 Carvedilol [Coreg (Beta Gene)] 25 mg PO BID 07/06/17 Cholecalciferol (Vitamin D3) [Vitamin D3] 1,000 unit PO DAILY 07/06/17 Famotidine [Pepcid] 20 mg PO BID 09/30/17 Aspirin E.C. [Ecotrin] 81 mg PO DAILY 10/11/17 Furosemide [Lasix] 40 mg PO DAILY PRN 10/11/17 Acetaminophen [Tylenol] 500 mg PO BID PRN 12/26/17 Escitalopram Oxalate [Lexapro] 10 mg PO DAILY 12/26/17 Esomeprazole Magnesium 40 mg PO DAILY 12/26/17 Gabapentin [Neurontin] 100 mg PO LUNCH 12/26/17 Gabapentin [Neurontin] 300 mg PO QHS 12/26/17 Iron Polysaccharide Complex [Ferrex 150] 150 mg PO QODAY 12/26/17 Menthol/Lanolin/Calamine/Znox [Calmoseptine Ointment] 1 applic TOPICAL TID 12/26/17 Potassium Chloride [K-Dur] 20 meq PO BID 12/26/17 Quinapril HCl 40 mg PO QHS 12/26/17 Ubidecarenone [Coenzyme Q-10] 200 mg PO DAILY 12/26/17 Warfarin [Coumadin] 2 mg PO DAILY@1700 12/26/17 Warfarin [Coumadin] 2.5 mg PO DAILY@1700 12/26/17 traMADol [Ultram] 50 mg PO Q6H PRN PRN 12/26/17 Budesonide Aerosol [Pulmicort Respules] 0.5 mg INHALATION Q12H.RT ampul.neb. 12/29/17 Cefepime HCl [Maxipime] 2 gm IV Q12 vial 12/29/17 Docusate Sodium [Colace] 100 mg PO BID capsule 12/29/17 Ipratropium/Albuterol Sulfate [Duoneb] 3 ml INHALATION Q4HWA.RT ampul.neb 12/29/17 Polyethylene Glycol 3350 [Miralax] 17 gm PO DAILY packet 12/29/17 Primary Care Physician: Bijan Austin MD [Primary Care Provider] - Please follow up with your Primary Care Physician in: in 3-5 days Please Follow Up With: Bijan Austin MD Minutes spent on discharge:: 35 Patient Condition:: Fair Medical Necessity - Tobacco Use Smoking Status: Never smoker Meaningful Use Info Meaningful Use Diagnoses (Choose all that apply): None applicable Code Visit Inpatient E&M: 96776 Disch Hosp
--- NOTE | 2017-12-29 15:46 | NURSING ---
Message left for Noemy patient to be moved to room 8 on TCU unit.
== END 2017-12-29 18:00 | disposition skilled nursing facility (03) | DRG 193 ==
LOC: ED 15:07 → PCU 18:11
PROVIDERS: Family Medicine; Internal Medicine; Admitting Provider Family Medicine; Emergency Provider Emergency Medicine; Family Provider Family Medicine; PCP Family Medicine; Visit Provider Family Medicine
DX: J18.9 Pneumonia, unspecified organism (principal); I50.33 Acute on chronic diastolic (congestive) heart failure; J96.21 Acute and chronic respiratory failure with hypoxia; J44.0 Chronic obstructive pulmonary disease with (acute) lower respiratory infection; Z99.81 Dependence on supplemental oxygen; I25.5 Ischemic cardiomyopathy; Z95.1 Presence of aortocoronary bypass graft; I25.10 Atherosclerotic heart disease of native coronary artery without angina pectoris; K21.9 Gastro-esophageal reflux disease without esophagitis; E87.5 Hyperkalemia; Y95 Nosocomial condition; I27.20 Pulmonary hypertension, unspecified; I48.0 Paroxysmal atrial fibrillation; Z95.810 Presence of automatic (implantable) cardiac defibrillator; G25.81 Restless legs syndrome; Z95.3 Presence of xenogenic heart valve; E89.0 Postprocedural hypothyroidism; E78.5 Hyperlipidemia, unspecified; I11.0 Hypertensive heart disease with heart failure; Z66 Do not resuscitate
CPT/HCPCS: 36415; 71046; 74018; 80048; 83605; 83735; 83880; 84100; 84484; 85025; 85610; 87040; 87449; 87633; 93005; 94640; 94760; 94762; 97110; 97162; 97166; 97535; 97802; 99285; J7040; A4216; J0744; J1940; J2405

== ENCOUNTER 2017-12-29 18:23 | Inpatient (IN) | payer MEDICARE, OTHER, SELFPAY ==
[2017-12-29 19:29] VITALS: BP 95/54; PULSE 76; RESP 18; TEMP 36.4; O2SAT 93
[2017-12-29 19:45] VITALS: BMI 25.7
--- NOTE | 2017-12-29 19:47 | NURSING ---
Discussed code status with patient, patient wishes to be DNRCC-A. Purple bracelet applied.
[2017-12-29 19:57] VITALS: BMI 25.7
--- NOTE | 2017-12-29 22:02 | PCM.HP.STD ---
Problem List (1) Shortness of breath Status: Acute (2) Healthcare associated bacterial pneumonia Status: Acute (3) Pulmonary fibrosis Status: Chronic (4) Coronary artery disease Status: Chronic (5) Hypothyroidism Status: Chronic (6) TIA (transient ischemic attack) Status: Chronic (7) Pulmonary hypertension Status: Chronic Comment: RVSP 66 mmHg (8) Cardiomyopathy Status: Chronic Qualifiers: (9) Paroxysmal atrial fibrillation Status: Chronic (10) HTN (hypertension) Status: Chronic Qualifiers: (11) Restless leg syndrome Status: Chronic History of Present Illness Date of Admission: 12/29/17 Chief Complaint: Here for rehabilitation, strengthening, prior to discharge home with family. The patient is a 82 year old Female with below past medical history presented to [facility] Emergency Department 12/26/2017 with shortness of breath. 12/26/2017 EKG ventricular paced rhythm, Biventricular pacemaker detected. Shortness of breath x several days. Productive cough of yellow sputum, generalized weakness. Home oxygen 3 to 4 Liters. Pulsox 86%. CBC slight anemia, BNP elevated. Chest X-ray progressive pulmonary fibrosis, new right pleural effusion, mild pulmonary congestion. IV Levaquin given for Healthcare associated pneumonia. 12/26/2017 Admit to Hospital. Jamila Singleton for Healthcare associated pneumonia. Reynaldo, consult Pulmonary medicine. Hold Lasix. 12/27/2017 Dr. Carnes recommended continuing broad spectrum antibiotics. Check urinary antigens for s. pneumo, legionella, check respiratory panel for viral infections. Sputum culture. Lasix IV x 1 dose. Continue Cefepime thru 01/02/2018 for healthcare associated pneumonia. IV Lasix for crackles on lung exam. Hyperkalemia resolved. 12/29/2017 Admit to TCU with debility, here for rehabilitation, strengthening, prior to discharge home alone with family. Past Medical History Past Medical History (Chronic Problems): Chronic Problems (Last Reviewed 11/20/17 @ 18:03 by BETTIE Shah) Pulmonary fibrosis (Chronic) Coronary artery disease (Chronic) Hypothyroidism (Chronic) TIA (transient ischemic attack) (Chronic) Pulmonary hypertension (Chronic) RVSP 66 mmHg Cardiomyopathy (Chronic) Ischemic cardiomyopathy (Chronic) Paroxysmal atrial fibrillation (Chronic) 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) Hyperthyroidism (Chronic) Hypokalemia (Chronic) Atherosclerotic heart disease of [place] coronary artery without angina pectoris (Chronic) CABG x1 RANDLE-LAD x/Aortic Valve Replacement Left bundle-branch block (Chronic) Nonrheumatic aortic valve stenosis (Chronic) HTN (hypertension) (Chronic) Other chest pain (Chronic) Presence of aortocoronary bypass graft (Chronic) Dyspnea on exertion (Chronic) Fatigue (Chronic) Chronic pulmonary heart disease (Chronic) CVA (cerebral infarction) (Chronic) Hyperlipidemia (Chronic) Paroxysmal ventricular tachycardia (Chronic) HTN (hypertension) (Chronic) Hypothyroidism associated with surgical procedure (Chronic) had a subtotal thyroidectomy for goiter Hemorrhoids (Chronic) Restless leg syndrome (Chronic) TIA (transient ischemic attack) (Chronic) multiple History of aortic valve replacement with bioprosthetic valve (Chronic) Medical History: Medical History (Last Reviewed 11/20/17 @ 18:03 by Graciela Andrew MICROSCOPIST-C) Ischemic cardiomyopathy (Chronic) I25.5 Paroxysmal atrial fibrillation (Chronic) I48.0 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) Z95.810 Hyperthyroidism (Chronic) E05.90 Hypokalemia (Chronic) E87.6 Atherosclerotic heart disease of [place] coronary artery without angina pectoris (Chronic) I25.10 CABG x1 RANDLE-LAD x/Aortic Valve Replacement Left bundle-branch block (Chronic) I44.7 Nonrheumatic aortic valve stenosis (Chronic) I35.0 HTN (hypertension) (Chronic) I10 Other chest pain (Chronic) R07.89 Dyspnea on exertion (Chronic) R06.09 Fatigue (Chronic) R53.83 Chronic pulmonary heart disease (Chronic) I27.9 CVA (cerebral infarction) (Chronic) I63.9 Hyperlipidemia (Chronic) E78.5 Paroxysmal ventricular tachycardia (Chronic) I47.2 HTN (hypertension) (Chronic) I10 Neck swelling (Acute) R22.1 left supraclavicular fossa and left neck Hypothyroidism associated with surgical procedure (Chronic) E89.0 had a subtotal thyroidectomy for goiter Hemorrhoids (Chronic) K64.9 Restless leg syndrome (Chronic) TIA (transient ischemic attack) (Chronic) multiple History of aortic valve replacement with bioprosthetic valve (Chronic) Z95.4 Allergies adhesive Allergy (Verified 12/29/17 20:09) Other Blisters etodolac Allergy (Verified 11/20/17 09:14) Unknown oxycodone HCl [From Percocet] Allergy (Verified 12/29/17 20:09) Hives phenobarbital Allergy (Verified 11/20/17 09:14) Unknown tolmetin sodium [From Tolectin] Allergy (Verified 11/20/17 09:14) Unknown venlafaxine Allergy (Verified 11/20/17 09:14) Unknown nitroglycerin Adverse Reaction (Verified 12/29/17 20:52) Other Headach nitropatch Allergy (Uncoded 11/20/17 09:14) unknown Home Medications: Ambulatory Orders Medication Instructions Recorded Magnesium Oxide [Mag-Ox 400] 400 mg PO DAILY@0800 09/17/15 Nitroglycerin [Nitrostat] 0.4 mg SUBLINGUAL Q5M PRN 09/20/15 gabapentin 100 mg capsule 100 mg PO BREAKFAST 05/05/17 amlodipine 5 mg tablet 5 mg PO DAILY 06/23/17 atorvastatin 40 mg tablet 20 mg PO QHS tab 06/23/17 Carvedilol [Coreg (Beta Gene)] 25 mg PO BID 07/06/17 Cholecalciferol (Vitamin D3) 1,000 unit PO DAILY@0807/06/17 [Vitamin D3] Famotidine [Pepcid] 20 mg PO BID 09/30/17 Aspirin E.C. [Ecotrin] 81 mg PO DAILY@0810/11/17 Furosemide [Lasix] 40 mg PO DAILY PRN 10/11/17 Acetaminophen [Tylenol] 500 mg PO BID PRN 12/26/17 Escitalopram Oxalate [Lexapro] 10 mg PO DAILY 12/26/17 Esomeprazole Magnesium 40 mg PO DAILY 12/26/17 Gabapentin [Neurontin] 100 mg PO LUNCH 12/26/17 Gabapentin [Neurontin] 300 mg PO QHS 12/26/17 Iron Polysaccharide Complex 150 mg PO QODAY@0812/26/17 [Ferrex 150] Menthol/Lanolin/Calamine/Znox 1 applic TOPICAL 0600,2200 12/26/17 [Calmoseptine Ointment] Potassium Chloride [K-Dur] 20 meq PO BIDCM 12/26/17 Quinapril HCl 40 mg PO QHS 12/26/17 Ubidecarenone [Coenzyme Q-10] 200 mg PO DAILY 12/26/17 Warfarin [Coumadin] 2 mg PO DAILY@1700 12/26/17 Warfarin [Coumadin] 2.5 mg PO DAILY@1700 12/26/17 traMADol [Ultram] 50 mg PO Q6H PRN PRN 12/26/17 Budesonide Aerosol [Pulmicort 0.5 mg INHALATION Q12H.RT 12/29/17 Respules] Cefepime HCl [Maxipime] 2 gm IV Q12 12/29/17 Docusate Sodium [Colace] 100 mg PO BID 12/29/17 Ipratropium/Albuterol Sulfate 3 ml INHALATION Q4HWA.RT 12/29/17 [Duoneb] Polyethylene Glycol 3350 [Miralax] 17 gm PO DAILY 12/29/17 Surgical History: Surgical History (Last Reviewed 11/20/17 @ 18:03 by Graciela Andrew NP-Manjinder) History of hip replacement (Resolved) Z96.649 Presence of aortocoronary bypass graft (Chronic) Z95.1 H/O aortic valve replacement Z95.2 21 mm Magna Ease Pericardial Valve H/O right and left heart catheterization Onset Date: 09/24/15 Z98.890 History of appendectomy Z90.49 History of hysterectomy Z98.890, Z90.710 History of left heart catheterization (LHC) Z98.890 2000, 2006, 2009, 2013. History of total right knee replacement (TKR) Z96.651 Hx of CABG Z95.1 CABG x1 RANDLE-LAD x/Aortic Valve Replacement Hx of cholecystectomy Z98.890, Z90.49 aortaplasty with pericardial patch closure Onset Date: 10/26/15 at Surgical History: appendectomy, cholecystectomy, coronary bypass surgery, hysterectomy - She still has ovaries and fallopian tubes. 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 Smoking Status: Never smoker Tobacco Use: Non-smoker Alcohol: None Drugs: None - *Family History Maternal Family History: Family History (Last Reviewed 11/20/17 @ 18:03 by DAJUAN ShahC) Father Myocardial infarction, Onset Age: 45 Hypertension Heart disease Mother Myocardial infarction, Onset Age: 64 CAD (coronary artery disease) Hypertension Brother Myocardial infarction, Onset Age: 59 Heart disease CAD (coronary artery disease) CVA (cerebral vascular accident) Hypertension Sister CAD (coronary artery disease) Hypertension Daughter Diabetes HLD (hyperlipidemia) Son Hypertension HLD (hyperlipidemia) CAD (coronary artery disease) History Items: Heart Disease, Hypertension Paternal Family History: Family History (Last Reviewed 11/20/17 @ 18:03 by Graciela Andrew MICROSCOPIST-C) Father Myocardial infarction, Onset Age: 45 Hypertension Heart disease Mother Myocardial infarction, Onset Age: 64 CAD (coronary artery disease) Hypertension Brother Myocardial infarction, Onset Age: 59 Heart disease CAD (coronary artery disease) CVA (cerebral vascular accident) Hypertension Sister CAD (coronary artery disease) Hypertension Daughter Diabetes HLD (hyperlipidemia) Son Hypertension HLD (hyperlipidemia) CAD (coronary artery disease) History Items: High Cholesterol, Heart Disease Review of Systems Constitutional: Denies: Chills, Fever, Weight Change HEENT: Denies: Head Aches, Sinus Congestion, Sinus Drainage Cardiovascular: Denies: Chest Pain, Palpitations Respiratory: Denies: Cough, Shortness of breath at rest, Sputum production Gastrointestinal: Denies: Abdominal Pain, Nausea, Vomiting Genitourinary: Denies: Dysuria Musculoskeletal: Denies: Joint Pain, Joint Tenderness Skin: Denies: Rash, Wounds Neurological: Denies: Numbness, Tingling, Focal weakness Psychiatric: Denies: Anxiety, Depression, Homicidal Ideations, Suicidal Ideations Hematologic/ Lymphatic: Denies: Easy Bruising, Easy Bleeding VTE Information - Inpt Only VTE Present on Admission: No VTE Mechan Device Prophylaxis: Knee High PENNY Hose VTE Pharm Prophylaxis ordered?: Yes Patient Problems: Active and Suspected Problems (Last Reviewed 11/20/17 @ 18:03 by Graciela Andrew, MICROSCOPIST-C) Shortness of breath (Acute) Healthcare associated bacterial pneumonia (Acute) - Physical Exam General: Alert, Oriented x3, Cooperative HEENT: Atraumatic, PERRLA, EOMI, Normocephalic Neck: Supple, No JVD, Negative Carotid Bruits Lungs: Normal air movement, Wheezes, - - crackles. Cardiovascular: Regular rate, No murmurs Abdomen: Bowel Sounds Present, Soft, Non Tender Extremities: No edema, Capillary Refill Less than 3 Seconds Skin: No rashes, No breakdown Musculoskeletal: No Tenderness to Palpation of Joints or Extremities Neurological: Cranial nerves II-XII grossly intact Psych/Mental Status: Normal Affect, Appropriate Vital Signs Temp Pulse Resp BP Pulse Ox 97.5 F L 76 18 95/54 L 93 12/29/17 19:29 12/29/17 19:29 12/29/17 19:29 12/29/17 19:29 12/29/17 19:29 Oxygen Flow Rate (L/min) 4 Oxygen Delivery Method Nasal Cannula Weight: 63.701 kg Body Mass Index (BMI) 25.7 Finger Stick Blood Glucose 156 Assessment/Plan All Active Problems (Last Reviewed 11/20/17 @ 18:03 by Graciela Andrew, LAURENCE-C) HCAP (healthcare-associated pneumonia) (Acute) Shortness of breath (Acute) Healthcare associated bacterial pneumonia (Acute) History of hip replacement (Resolved) Surgical site infection (Resolved) multilobar HCAP (Acute) Acute respiratory failure with hypoxia (Acute) CHF (congestive heart failure) (Acute) Neck swelling (Acute) Accelerated hypertension (Resolved) Chest pain (Resolved) DVT of lower extremity (deep venous thrombosis) (Resolved) Nephrolithiasis (Resolved) 82 year old female with below past medical history hospitalized for shortness of breath secondary to healthcare associated pneumonia, complicated by acute on chronic diastolic heart failure, pulmonary fibrosis, admitted to TCU with debility, here for rehabilitation, strengthening, prior to discharge home with family. Debility - PT/OT. Pain - Tylenol 1000MG Q8H PRN mild pain, Tramadol 50MG Q6H PRN moderate pain. Bowel - Miralax 17GM daily, Senna/colace 1 tablet BID, Dulcolax 10MG daily PRN. Pneumonia vaccination - Administer Prevnar 13 and/or Pneumovax 23 as necessary. DVT prophylaxis - Not necessary, on Warfarin. Hypertension - Coreg 25MG BID, Lisinopril 40MG QHS, Amlodipine 5MG daily. Coronary Artery Disease - Coreg 25MG BID, Lisinopril 40MG QHS, Aspirin 81MG daily, NTG 0.4MG SL Q5M PRN. Hyperlipidemia - Atorvastatin 20MG QHS. Pulmonary fibrosis - Pulmicort 0.5MG Q12H, Duoneb 3ML [id number]. Healthcare associated pneumonia - Cefepime 2GM IV Q12H thru 01/02/2018. Vitamin D deficiency - D3 1000IU daily. Depression - Lexapro 10MG daily. Acute on chronic diastolic heart failure - Coreg 25MG BID, Lisinopril 40MG QHS, Lasix 40MG daily. Neuropathic pain - Gabapentin 100MG QAM, 100MG QNOON, 300MG QHS. Iron deficiency anemia - Ferrex 150MG daily. Hypomagnesemia - Magnesium Oxide 400MG daily. Skin irritation - Calmoseptine BID coccyx. GERD - Pantoprazole 40MG daily. Hypokalemia - K-Dur 20MEQ BID. Atrial Fibrillation - Coreg 25MG BID, warfarin 4.5MG daily, follow INR.
[2017-12-29] MEDS: Carvedilol 25 MG Tablet PO (22:04)
[2017-12-29] MEDS: Lisinopril 40 MG Tablet PO (22:05)
[2017-12-29] MEDS: Atorvastatin Calcium 20 MG Tablet PO (22:05)
[2017-12-29] MEDS: Gabapentin 300 MG Capsule PO (22:05)
[2017-12-29] MEDS: Menthol/Lanolin/Calamine/Znox 113 GM Tube 1 APPLIC TOPICAL (22:06)
[2017-12-29] MEDS: 0.9% NaCl Peripheral Flush Adult/Peds IV (22:08)
[2017-12-29] MEDS: 0.9% NaCl IVPB Med Flush (250 mL) 15 ML IV (22:08)
[2017-12-29] MEDS: Cefepime HCl 2 GM in 0.9% NS 100 ML Minibag Q12 IV (22:55)
[2017-12-30] MEDS: Furosemide 40 MG Tablet PO (05:20)
[2017-12-30] MEDS: Senna/Docusate Sodium 1 Tablet PO ×2 (05:20→17:36)
[2017-12-30] MEDS: Pantoprazole Sodium 40 MG Tablet PO (05:20)
[2017-12-30] MEDS: amLODIPine 5 MG Tablet PO (05:20)
[2017-12-30] MEDS: Polyethylene Glycol 3350 17 GM PACKET PO (05:21)
[2017-12-30] MEDS: Menthol/Lanolin/Calamine/Znox 113 GM Tube 1 APPLIC TOPICAL ×2 (05:21→20:34)
[2017-12-30] MEDS: Carvedilol 25 MG Tablet PO ×2 (05:21→17:36)
[2017-12-30] MEDS: Escitalopram Oxalate 10 MG Tablet PO (05:21)
[2017-12-30 05:37] LABS: Absolute Lymphocyte Count 0.78 X10^3/ul (0.83-4.51); Absolute Neutrophil Count 3.6 X10^3/uL (2.0-7.7); Basophil# 0.05 X10^3/uL; Basophil% 0.9 % (0-1); Eosinophil# 0.67 X10^3/uL; Eosinophils% 11.6 % (0-5); Hematocrit 26.8 % (37-47); Hemoglobin 8.2 g/dl (12.0-15.0); Lymphocyte # 0.78 X10^3/ul (4.0); Lymphocyte % 13.5 % (19-41); Mean Corp Hgb Conc 30.6 g/gl (32-36); Mean Corpuscular Hgb 28.6 pg (27.0-32.0); Mean Corpuscular Volume 93.4 fL (81-99); Mean Platelet Vol. 10.3 fl (6.2-12.0); Monocyte# 0.64 X10^3/uL; Monocyte% 11.1 % (0-10); Neutrophil # 3.63 X10^3/uL (2.7-7.7); Neutrophil % 62.7 % (47-70); Platelet Count 210 K/mm3 (150-450); RBC Distribution Width SD 52.4 fl (35.1-43.9); Red Blood Count 2.87 M/mm3 (4.2-5.4); White Blood Count 5.8 K/mm3 (4.4-11.0)
[2017-12-30 05:40] LABS: POSITIVE COUNT NO; POSITIVE DIFFERENTIAL NO; POSITIVE MORPHOLOGY NO
[2017-12-30 05:44] LABS: Anion Gap 9 (5-15); BUN 14 mg/dL (7-18); BUN/Creat Ratio 33.1 RATIO (10-20); Calcium,Total 8.3 mg/dL (8.5-10.1); Chloride 102 mmol/L (98-107); Creatinine, Serum 0.42 mg/dL (0.55-1.02); EST Glomerular Filtration Rate 153 mL/min (>60); Est Glom Filt Rate - Afr Amer 185 mL/min (>60); Estimated Creatinine Clearance 35.49 ml/min; Glucose 84 mg/dL (74-106); Potassium 3.3 mmol/L (3.5-5.1); Sodium Level 141 mmol/L (136-145)
[2017-12-30 06:13] LABS: International Normalized Ratio 1.9; Prothrombin Time (Protime)PT. 21.7 SECONDS (11.7-14.9)
[2017-12-30 06:58] VITALS: PULSE 72; RESP 18; O2SAT 93
[2017-12-30] MEDS: Ipratropium/Albuterol Sulfate 3 ML AMPUL.NEB INHALATION ×2 (07:00→11:24)
[2017-12-30] MEDS: Budesonide Respules 0.5 MG/2 ML AMPUL.NEB. INHALATION (07:01)
[2017-12-30] MEDS: 0.9% NaCl Peripheral Flush Adult/Peds IV ×2 (09:17→21:14)
[2017-12-30] MEDS: Cefepime HCl 2 GM in 0.9% NS 100 ML Minibag Q12 IV ×2 (09:17→21:11)
[2017-12-30] MEDS: Gabapentin 100 MG Capsule PO ×2 (09:21→12:02)
[2017-12-30] MEDS: Magnesium Oxide 400 MG Tablet PO (09:21)
[2017-12-30] MEDS: Iron Polysaccharide Complex 150 MG CAPSULE PO (09:21)
[2017-12-30] MEDS: Aspirin E.C. 81 MG Tablet PO (09:21)
[2017-12-30] MEDS: Tuberculin,Purif.prot.deriv. 50 TU/ML Vial 5 ML ID (09:50)
--- NOTE | 2017-12-30 11:02 | NURSING ---
Per therapy, pt becoming dizzy with therapy, assessed, HR reg, LS diminished, o2 on at 4lplease see vitals intervention, pt denies sob, nausea, n/t, states she feels dizzy and has slight headache. Therapy will do exercises in bed, CATHERINE Pablo notified.
[2017-12-30 11:04] VITALS: BP 116/63; PULSE 82; RESP 18; O2SAT 97
[2017-12-30 11:24] VITALS: PULSE 74; RESP 19
[2017-12-30 15:47] VITALS: BP 146/53; PULSE 83; RESP 20; TEMP 36; O2SAT 100
[2017-12-30] MEDS: Warfarin 2.5 MG, Warfarin 2 MG 4.5 MG PO (17:35)
[2017-12-30] MEDS: Lisinopril 40 MG Tablet PO (20:33)
[2017-12-30] MEDS: Atorvastatin Calcium 20 MG Tablet PO (20:33)
[2017-12-30] MEDS: Gabapentin 300 MG Capsule PO (20:33)
[2017-12-30] MEDS: 0.9% NaCl IVPB Med Flush (250 mL) 15 ML IV (21:11)
[2017-12-31] MEDS: Furosemide 40 MG Tablet PO (06:21)
[2017-12-31] MEDS: Senna/Docusate Sodium 1 Tablet PO (06:21)
[2017-12-31] MEDS: Escitalopram Oxalate 10 MG Tablet PO (06:22)
[2017-12-31] MEDS: Pantoprazole Sodium 40 MG Tablet PO (06:22)
[2017-12-31] MEDS: amLODIPine 5 MG Tablet PO (06:22)
[2017-12-31] MEDS: Carvedilol 25 MG Tablet PO ×2 (06:22→16:52)
[2017-12-31] MEDS: Menthol/Lanolin/Calamine/Znox 113 GM Tube 1 APPLIC TOPICAL ×2 (06:23→22:46)
[2017-12-31] MEDS: Polyethylene Glycol 3350 17 GM PACKET PO (06:24)
[2017-12-31] MEDS: Aspirin E.C. 81 MG Tablet PO (09:30)
[2017-12-31] MEDS: Magnesium Oxide 400 MG Tablet PO (09:30)
[2017-12-31] MEDS: Gabapentin 100 MG Capsule PO ×2 (09:31→12:02)
[2017-12-31] MEDS: 0.9% NaCl Peripheral Flush Adult/Peds IV ×2 (10:50→22:46)
[2017-12-31] MEDS: Cefepime HCl 2 GM in 0.9% NS 100 ML Minibag Q12 IV ×2 (10:50→22:42)
[2017-12-31] MEDS: Ipratropium/Albuterol Sulfate 3 ML AMPUL.NEB INHALATION (10:52)
[2017-12-31 10:53] VITALS: PULSE 80; RESP 19
[2017-12-31] MEDS: Budesonide Respules 0.5 MG/2 ML AMPUL.NEB. INHALATION (10:53)
[2017-12-31 10:59] VITALS: O2SAT 98
[2017-12-31 15:33] VITALS: BP 106/60; PULSE 75; RESP 22; TEMP 36.4; O2SAT 96
[2017-12-31] MEDS: Warfarin 2.5 MG, Warfarin 2 MG 4.5 MG PO (16:52)
[2017-12-31] MEDS: 0.9% NaCl IVPB Med Flush (250 mL) 15 ML IV (22:41)
[2017-12-31] MEDS: Gabapentin 300 MG Capsule PO (22:47)
[2017-12-31] MEDS: Lisinopril 40 MG Tablet PO (22:47)
[2017-12-31] MEDS: Atorvastatin Calcium 20 MG Tablet PO (22:47)
[2018-01-01] MEDS: Escitalopram Oxalate 10 MG Tablet PO (05:45)
[2018-01-01] MEDS: Carvedilol 25 MG Tablet PO ×2 (05:45→16:59)
[2018-01-01] MEDS: amLODIPine 5 MG Tablet PO (05:45)
[2018-01-01] MEDS: Pantoprazole Sodium 40 MG Tablet PO (05:45)
[2018-01-01] MEDS: Furosemide 40 MG Tablet PO (05:45)
[2018-01-01] MEDS: Menthol/Lanolin/Calamine/Znox 113 GM Tube 1 APPLIC TOPICAL ×2 (05:47→22:06)
[2018-01-01 06:49] LABS: Anion Gap 8 (5-15); BUN 17 mg/dL (7-18); BUN/Creat Ratio 31.8 RATIO (10-20); Calcium,Total 8.8 mg/dL (8.5-10.1); Chloride 108 mmol/L (98-107); Creatinine, Serum 0.53 mg/dL (0.55-1.02); EST Glomerular Filtration Rate 117 mL/min (>60); Est Glom Filt Rate - Afr Amer 141 mL/min (>60); Estimated Creatinine Clearance 35.49 ml/min; Glucose 78 mg/dL (74-106); Potassium 5.4 mmol/L (3.5-5.1); Sodium Level 143 mmol/L (136-145)
[2018-01-01] MEDS: Iron Polysaccharide Complex 150 MG CAPSULE PO (08:00)
[2018-01-01] MEDS: Gabapentin 100 MG Capsule PO ×2 (08:00→10:58)
[2018-01-01] MEDS: Aspirin E.C. 81 MG Tablet PO (08:00)
[2018-01-01] MEDS: Magnesium Oxide 400 MG Tablet PO (08:00)
[2018-01-01] MEDS: 0.9% NaCl Peripheral Flush Adult/Peds IV ×2 (10:42→21:55)
[2018-01-01] MEDS: Cefepime HCl 2 GM in 0.9% NS 100 ML Minibag Q12 IV ×2 (10:46→21:56)
[2018-01-01] MEDS: Sodium Polystyrene Sulfonate 15 GM/60 ML UDC 30 GM PO (10:51)
--- NOTE | 2018-01-01 13:34 | NURSING ---
was asked to see patient for redness to sacrum. therapy was getting patient back into bed. there is some blanchable redness noted to the sacrum. no open areas noted. there appears to be a healed sheared area to the left inner buttock. not currently open. applied calmoseptine. will continue to monitor.
--- NOTE | 2018-01-01 14:09 | CHAPLAIN ---
Type of Pastoral Visit ___ Initial Visit _x__ Follow-up Visit ___ On-call Visit ___ General Patient Visit ___ Spiritual Assessment ___ Family Conference ___ Bereavement ___ Rapid Response ___ Code Blue ___ Other (describe below) Pastoral Care Referral From _x__ Patient ___ Family ___ Nurse ___ Physician ___ Court Assistant ___ Commercial Loan Administrator ___ Other (describe below) Sacrament/Intervention ___ Active listening ___ Anointing ___ Scientology ___ Bereavement ___ Communion ___ Yaneth exploration ___ ___ Life review _x__ Prayer ___ Reconciliation ___ Sacrament of Sick _x__ Supportive presence ___ Wedding ___ Other (describe below) Pastoral Comments
[2018-01-01] MEDS: traMADol 50 MG Tablet PO (15:30)
[2018-01-01 16:00] VITALS: BP 123/55; PULSE 73; RESP 20; TEMP 35.7; O2SAT 96
[2018-01-01] MEDS: Warfarin 2.5 MG, Warfarin 2 MG 4.5 MG PO (16:58)
[2018-01-01] MEDS: 0.9% NaCl IVPB Med Flush (250 mL) 15 ML IV (21:55)
[2018-01-01] MEDS: Lisinopril 40 MG Tablet PO (22:02)
[2018-01-01] MEDS: Gabapentin 300 MG Capsule PO (22:02)
[2018-01-01] MEDS: Atorvastatin Calcium 20 MG Tablet PO (22:03)
[2018-01-02] MEDS: amLODIPine 5 MG Tablet PO (06:28)
[2018-01-02] MEDS: Carvedilol 25 MG Tablet PO ×2 (06:28→18:14)
[2018-01-02] MEDS: Furosemide 40 MG Tablet PO (06:28)
[2018-01-02] MEDS: Pantoprazole Sodium 40 MG Tablet PO (06:28)
[2018-01-02] MEDS: Escitalopram Oxalate 10 MG Tablet PO (06:28)
[2018-01-02] MEDS: Menthol/Lanolin/Calamine/Znox 113 GM Tube 1 APPLIC TOPICAL ×2 (06:30→21:28)
[2018-01-02 07:14] LABS: Anion Gap 7 (5-15); BUN 14 mg/dL (7-18); BUN/Creat Ratio 27.3 RATIO (10-20); Calcium,Total 8.6 mg/dL (8.5-10.1); Chloride 103 mmol/L (98-107); Creatinine, Serum 0.51 mg/dL (0.55-1.02); EST Glomerular Filtration Rate 123 mL/min (>60); Est Glom Filt Rate - Afr Amer 148 mL/min (>60); Estimated Creatinine Clearance 35.49 ml/min; Glucose 80 mg/dL (74-106); Potassium 3.8 mmol/L (3.5-5.1); Sodium Level 142 mmol/L (136-145)
[2018-01-02] MEDS: Aspirin E.C. 81 MG Tablet PO (08:44)
[2018-01-02] MEDS: Gabapentin 100 MG Capsule PO ×2 (08:44→10:48)
[2018-01-02] MEDS: Magnesium Oxide 400 MG Tablet PO (08:44)
[2018-01-02] MEDS: Cefepime HCl 2 GM in 0.9% NS 100 ML Minibag Q12 IV ×2 (10:38→21:27)
[2018-01-02 11:47] VITALS: O2SAT 98
[2018-01-02 15:12] VITALS: BP 115/62; PULSE 86; RESP 20; TEMP 35.9; O2SAT 97
[2018-01-02] MEDS: Warfarin 2.5 MG, Warfarin 2 MG 4.5 MG PO (18:12)
[2018-01-02] MEDS: 0.9% NaCl Peripheral Flush Adult/Peds IV (21:26)
[2018-01-02] MEDS: Gabapentin 300 MG Capsule PO (21:29)
[2018-01-02] MEDS: Lisinopril 40 MG Tablet PO (21:29)
[2018-01-02] MEDS: Atorvastatin Calcium 20 MG Tablet PO (21:29)
[2018-01-03] MEDS: Menthol/Lanolin/Calamine/Znox 113 GM Tube 1 APPLIC TOPICAL ×2 (05:22→20:14)
[2018-01-03] MEDS: amLODIPine 5 MG Tablet PO (05:22)
[2018-01-03] MEDS: Furosemide 40 MG Tablet PO (05:22)
[2018-01-03] MEDS: Escitalopram Oxalate 10 MG Tablet PO (05:22)
[2018-01-03] MEDS: Carvedilol 25 MG Tablet PO ×2 (05:22→17:35)
[2018-01-03] MEDS: Pantoprazole Sodium 40 MG Tablet PO (05:22)
[2018-01-03 06:11] LABS: Anion Gap 9 (5-15); BUN 12 mg/dL (7-18); BUN/Creat Ratio 25.3 RATIO (10-20); Calcium,Total 8.7 mg/dL (8.5-10.1); Chloride 100 mmol/L (98-107); Creatinine, Serum 0.48 mg/dL (0.55-1.02); EST Glomerular Filtration Rate 134 mL/min (>60); Est Glom Filt Rate - Afr Amer 162 mL/min (>60); Estimated Creatinine Clearance 35.49 ml/min; Glucose 84 mg/dL (74-106); Potassium 3.3 mmol/L (3.5-5.1); Sodium Level 143 mmol/L (136-145)
[2018-01-03] MEDS: Magnesium Oxide 400 MG Tablet PO (08:12)
[2018-01-03] MEDS: Iron Polysaccharide Complex 150 MG CAPSULE PO (08:12)
[2018-01-03] MEDS: Aspirin E.C. 81 MG Tablet PO (08:12)
[2018-01-03] MEDS: Gabapentin 100 MG Capsule PO ×2 (08:12→11:39)
[2018-01-03 15:10] VITALS: BP 106/53; PULSE 69; RESP 20; TEMP 36.4; O2SAT 95
[2018-01-03] MEDS: Warfarin 2.5 MG, Warfarin 2 MG 4.5 MG PO (17:34)
[2018-01-03] MEDS: Gabapentin 300 MG Capsule PO (20:14)
[2018-01-03] MEDS: Lisinopril 40 MG Tablet PO (20:14)
[2018-01-03] MEDS: Atorvastatin Calcium 20 MG Tablet PO (20:14)
[2018-01-04] MEDS: Senna/Docusate Sodium 1 Tablet PO (04:55)
[2018-01-04] MEDS: Escitalopram Oxalate 10 MG Tablet PO (04:56)
[2018-01-04] MEDS: Menthol/Lanolin/Calamine/Znox 113 GM Tube 1 APPLIC TOPICAL ×2 (04:56→20:57)
[2018-01-04] MEDS: Carvedilol 25 MG Tablet PO ×2 (04:56→17:15)
[2018-01-04] MEDS: Furosemide 40 MG Tablet PO (04:56)
[2018-01-04] MEDS: amLODIPine 5 MG Tablet PO (04:56)
[2018-01-04] MEDS: Pantoprazole Sodium 40 MG Tablet PO (04:56)
[2018-01-04 06:08] LABS: International Normalized Ratio 1.8; Prothrombin Time (Protime)PT. 20.7 SECONDS (11.7-14.9)
[2018-01-04] MEDS: Aspirin E.C. 81 MG Tablet PO (07:34)
[2018-01-04] MEDS: Magnesium Oxide 400 MG Tablet PO (07:34)
[2018-01-04] MEDS: Gabapentin 100 MG Capsule PO ×2 (07:34→11:47)
[2018-01-04 08:06] VITALS: O2SAT 97
--- NOTE | 2018-01-04 11:51 | CASEMGMT ---
Brief interview for mental status (BIMS) and resident mood interview (PHQ-9) completed on this day. BIMS score 15. PHQ-9 score 06/06
[2018-01-04] MEDS: Acetaminophen 500 MG Tablet 1000 MG PO (15:13)
[2018-01-04 15:14] VITALS: BP 112/51; PULSE 76; RESP 18; TEMP 36.3; O2SAT 99
[2018-01-04] MEDS: Gabapentin 300 MG Capsule PO (20:55)
[2018-01-04] MEDS: Lisinopril 40 MG Tablet PO (20:55)
[2018-01-04] MEDS: Atorvastatin Calcium 20 MG Tablet PO (20:56)
[2018-01-05] MEDS: amLODIPine 5 MG Tablet PO (05:30)
[2018-01-05] MEDS: Carvedilol 25 MG Tablet PO ×2 (05:30→17:28)
[2018-01-05] MEDS: Escitalopram Oxalate 10 MG Tablet PO (05:30)
[2018-01-05] MEDS: Furosemide 40 MG Tablet PO (05:30)
[2018-01-05] MEDS: Pantoprazole Sodium 40 MG Tablet PO (05:30)
[2018-01-05] MEDS: Menthol/Lanolin/Calamine/Znox 113 GM Tube 1 APPLIC TOPICAL ×2 (05:32→20:56)
[2018-01-05 06:05] LABS: Anion Gap 8 (5-15); BUN 12 mg/dL (7-18); BUN/Creat Ratio 21.2 RATIO (10-20); Calcium,Total 9.1 mg/dL (8.5-10.1); Chloride 98 mmol/L (98-107); Creatinine, Serum 0.57 mg/dL (0.55-1.02); EST Glomerular Filtration Rate 109 mL/min (>60); Est Glom Filt Rate - Afr Amer 132 mL/min (>60); Glucose 76 mg/dL (74-106); Potassium 3.5 mmol/L (3.5-5.1); Sodium Level 143 mmol/L (136-145)
[2018-01-05 07:09] VITALS: O2SAT 100
[2018-01-05] MEDS: Iron Polysaccharide Complex 150 MG CAPSULE PO (09:00)
[2018-01-05] MEDS: Aspirin E.C. 81 MG Tablet PO (09:00)
[2018-01-05] MEDS: Magnesium Oxide 400 MG Tablet PO (09:00)
[2018-01-05] MEDS: Gabapentin 100 MG Capsule PO ×2 (09:00→12:08)
--- NOTE | 2018-01-05 12:12 | PCM.CONS.P ---
History of Present Illness Date of Consult: 01/05/18 Reason for Consult: palliative consult symptom mgmt Requesting physician: Dr. Bach hospitalists Primary care physician: Bijan Austin - History of Present Illness The patient is a 83 year old F seen in consultation in the TCU. Original consult request obtained while pt in [facility] for acute care. Met with pt and her dtrs in her room in TCU. Hx of recurring pneumonia episodes recently. In and out of [facility] and TCU as well. Had total hi replacement in 07/26 and had apparent post op infection. Did some time in [facility] for skilled care. Has been living alone with her dtrs staying with her for 24 hour care. Has multiple comorbidities including Pulm fibrosis, pulm htn,cardiomypathy, CAD, atrial fib, CHF, etc. Apparent resp failure with last admit. Now in TCU for therapies and strengthening and had atb tx. Placed on rtc O2 some time ago and has home aerosols as well. Now with ? increasing O2 requirement. SaO2 86 % RA. Discussed with staff here and pt responding to therapies. Has significant JIMÉNEZ and some at rest. Some difficulty maintaining K+ levels. Has multiple meds and is up with assist and walker and w/c. Has significant anemia as well. Has been under Pulmonology care. Denies pain, dysphagia, n/v,etc. Has biventricular pacer and is on therapeutic coumadin. REPorts being up with walker at home. Appetite is returning here. REports she has lost 18 pounds over the past 2-3 months. Denies bowel or bladder difficulty. Feels aerosols have helped. Denies edema at present. C/o fatigue and weakness and now with mimimal cough and no sputum. No c/p. Has significant debility. Describes neuropathy type pain to her legs and feet and neurontin has helped her. Has used prn tylenol very little for pain. No hx of bleeding or other problems. Sitting in recliner today at my visit. Desires to go home and have care per her dtrs and home health. REports noted. 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) Hyperthyroidism (Chronic) Hypokalemia (Chronic) Atherosclerotic heart disease of [place] coronary artery without angina pectoris (Chronic) CABG x1 RANDLE-LAD x/Aortic Valve Replacement Left bundle-branch block (Chronic) Nonrheumatic aortic valve stenosis (Chronic) HTN (hypertension) (Chronic) Other chest pain (Chronic) Presence of aortocoronary bypass graft (Chronic) Dyspnea on exertion (Chronic) Fatigue (Chronic) Chronic pulmonary heart disease (Chronic) CVA (cerebral infarction) (Chronic) Hyperlipidemia (Chronic) Paroxysmal ventricular tachycardia (Chronic) HTN (hypertension) (Chronic) Hypothyroidism associated with surgical procedure (Chronic) had a subtotal thyroidectomy for goiter Hemorrhoids (Chronic) Restless leg syndrome (Chronic) TIA (transient ischemic attack) (Chronic) multiple History of aortic valve replacement with bioprosthetic valve (Chronic) Surgical History: appendectomy, cholecystectomy, coronary bypass surgery, hysterectomy - She still has ovaries and fallopian tubes. The hysterectomy was done for dysfunctional uterine bleeding., pacemaker implantation, total hip arthroplasty, - - Bioprosthetic aortic valve replacement with CABG in October 2015 Psychiatric History: Anxiety, Depression Home Medications: Ambulatory Orders Medication Instructions Recorded Magnesium Oxide [Mag-Ox 400] 400 mg PO DAILY@0800 09/17/15 Nitroglycerin [Nitrostat] 0.4 mg SUBLINGUAL Q5M PRN 09/20/15 gabapentin 100 mg capsule 100 mg PO BREAKFAST 05/05/17 amlodipine 5 mg tablet 5 mg PO DAILY 06/23/17 atorvastatin 40 mg tablet 20 mg PO QHS tab 06/23/17 Carvedilol [Coreg (Beta Gene)] 25 mg PO BID 07/06/17 Cholecalciferol (Vitamin D3) 1,000 unit PO DAILY@0807/06/17 [Vitamin D3] Famotidine [Pepcid] 20 mg PO BID 09/30/17 Aspirin E.C. [Ecotrin] 81 mg PO DAILY@0800 10/11/17 Furosemide [Lasix] 40 mg PO DAILY PRN 10/11/17 Acetaminophen [Tylenol] 500 mg PO BID PRN 12/26/17 Escitalopram Oxalate [Lexapro] 10 mg PO DAILY 12/26/17 Esomeprazole Magnesium 40 mg PO DAILY 12/26/17 Gabapentin [Neurontin] 100 mg PO LUNCH 12/26/17 Gabapentin [Neurontin] 300 mg PO QHS 12/26/17 Iron Polysaccharide Complex 150 mg PO QODAY@0800 12/26/17 [Ferrex 150] Menthol/Lanolin/Calamine/Znox 1 applic TOPICAL 0600,2200 12/26/17 [Calmoseptine Ointment] Potassium Chloride [K-Dur] 20 meq PO BIDCM 12/26/17 Quinapril HCl 40 mg PO QHS 12/26/17 Ubidecarenone [Coenzyme Q-10] 200 mg PO DAILY 12/26/17 Warfarin [Coumadin] 2 mg PO DAILY@1700 12/26/17 Warfarin [Coumadin] 2.5 mg PO DAILY@17012/26/17 traMADol [Ultram] 50 mg PO Q6H PRN PRN 12/26/17 Budesonide Aerosol [Pulmicort 0.5 mg INHALATION Q12H.RT 12/29/17 Respules] Cefepime HCl [Maxipime] 2 gm IV Q12 12/29/17 Docusate Sodium [Colace] 100 mg PO BID 12/29/17 Ipratropium/Albuterol Sulfate 3 ml INHALATION Q4HWA.RT 12/29/17 [Duoneb] Polyethylene Glycol 3350 [Miralax] 17 gm PO DAILY 12/29/17 Allergies adhesive Allergy (Verified 12/29/17 20:09) Other Blisters etodolac Allergy (Verified 11/20/17 09:14) Unknown oxycodone HCl [From Percocet] Allergy (Verified 12/29/17 20:09) Hives phenobarbital Allergy (Verified 11/20/17 09:14) Unknown tolmetin sodium [From Tolectin] Allergy (Verified 11/20/17 09:14) Unknown venlafaxine Allergy (Verified 11/20/17 09:14) Unknown nitroglycerin Adverse Reaction (Verified 12/29/17 20:52) Other Headach nitropatch Allergy (Uncoded 11/20/17 09:14) unknown Maternal Family History: Family History (Last Reviewed 11/20/17 @ 18:03 by BETTIE Shah) Father Myocardial infarction, Onset Age: 45 Hypertension Heart disease Mother Myocardial infarction, Onset Age: 64 CAD (coronary artery disease) Hypertension Brother Myocardial infarction, Onset Age: 59 Heart disease CAD (coronary artery disease) CVA (cerebral vascular accident) Hypertension Sister CAD (coronary artery disease) Hypertension Daughter Diabetes HLD (hyperlipidemia) Son Hypertension HLD (hyperlipidemia) CAD (coronary artery disease) History Items: Heart Disease, Hypertension Paternal Family History: Family History (Last Reviewed 11/20/17 @ 18:03 by Graciela Andrew, LAURENCE-C) Father Myocardial infarction, Onset Age: 45 Hypertension Heart disease Mother Myocardial infarction, Onset Age: 64 CAD (coronary artery disease) Hypertension Brother Myocardial infarction, Onset Age: 59 Heart disease CAD (coronary artery disease) CVA (cerebral vascular accident) Hypertension Sister CAD (coronary artery disease) Hypertension Daughter Diabetes HLD (hyperlipidemia) Son Hypertension HLD (hyperlipidemia) CAD (coronary artery disease) History Items: High Cholesterol, Heart Disease - Social History Lives: Alone - 24 hour care per family members., - - Smoking Status: Never smoker Tobacco Use: Non-smoker Alcohol: None Drugs: None - Spiritual Assessment 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 Tries to be active there as able. Code Status: DNRCC-A Advanced Care Planning: Pt with living will an dtr is DPOAHC. All of her girls are involved with her care. Desires comfort care and wants to avoid hospitalization. Hospice info given and is open to it when needed. Goals of Care: As above Wants to return home with home health and therapies. Desires to be comfortable. Agreeeable to palliative care and f/u. Declines intubation, feeding tubes or the like. Review of Systems Constitutional: Reports: Anorexia, Malaise, Weakness, Weight Change, Fatigue Eyes: Reports: - - [place]. Denies: Blurred vision, Double vision, Drainage HEENT: Reports: Difficulty Hearing, Hard of Hearing, Nasal Congestion. Denies: Difficulty Swallowing, Dysphasia, Nasal bleeding Cardiovascular: Reports: Palpitations, Paroxysmal Noc. Dyspnea, - - hx as above with cardiomyopathy and pacer, CHF, atrial fib, etc... Denies: Chest Pain, Chest Pressure, Chest Tightness Respiratory: Reports: Cough, Shortness of Breath, Shortness of breath at rest, Shortness of breath upon exertion, Sputum production Gastrointestinal: Denies: Abdominal Pain, Constipation, Diarrhea, Hematemesis, Hematochezia, Nausea, Vomiting Genitourinary: Denies: Dysuria, Frequency, Incontinence Gynecological: Denies: Breast symptoms, Vaginal discharge Musculoskeletal: Reports: Foot Pain, Leg Pain, - - neuropathy to LE'S. Denies: Arm Pain Skin: Denies: Dryness, Jaundice, Pruritis Neurological: Denies: Balance problems, Slurred speech, Confusion, Difficulty swallowing, Tremor, Seizures Psychiatric: Reports: Anxiety. Denies: Depression, Homicidal Ideations Endocrine: Denies: Polydipsia, Polyuria Hematologic/ Lymphatic: Reports: Anemia, Easy Bruising. Denies: Adenopathy Physical Exam Palliative Performance Scale %: 50 General: Alert, Oriented x3, Cooperative, - - THIN FRAIL SOB o2 ON HEENT: Atraumatic, PERRLA, EOMI, - - RESIGHINI Oral: Moist Mucosa Neck: Supple, No Nodes, Trachea Midline, JVD, Bilateral Lungs: Diminished, Rales, Short of Breath Cardiovascular: Irregular Rate, Murmur, - - pacer Abdomen: Bowel Sounds Present, Soft, Non Tender, Non-Distended Extremities: No clubbing, No cyanosis, No edema, Diminished Peripheral Pulses, - - neuropathy to legs Skin: No rashes, No breakdown, - - pale Musculoskeletal: Arthritic Changes, Cachexia, Muscle Wasting, - - frail Lymphatic: No Cervical, Supraclavicular, or Inguinal Adenopathy Neurological: Cranial nerves II-XII grossly intact, Motor Exam 5/5 strength throughout, - - sensory changes to legs neuropathy Psych/Mental Status: Normal Affect, Appropriate Objective: Vital Signs Temp Pulse Resp BP Pulse Ox 97.3 F L 76 18 112/51 L 100 01/04/18 15:14 01/04/18 15:14 01/04/18 15:14 01/04/18 15:14 01/05/18 07:09 Oxygen Flow Rate (L/min) 3 Oxygen Delivery Method Nasal Cannula Weight: 143 lb 2 oz Body Mass Index (BMI) 25.7 Finger Stick Blood Glucose 156 Intake and Output for Last 24 Hours 01/03/18 01/04/18 01/05/18 23:59 23:59 23:59 Intake Total 300 / 300 560 / 560 120 / 120 Balance 300 / 300 560 / 560 120 / 120 Laboratory Tests Past 24 Hrs 01/05/18 05:20 Sodium 143 Potassium 3.5 Chloride 98 Carbon Dioxide 37.0 H Anion Gap 8 BUN 12 Creatinine 0.57 Estim Creat Clear Calc 34.90 Est GFR (MDRD) Af Amer 132 Est GFR (MDRD) Non-Af 109 BUN/Creatinine Ratio 21.2 H Glucose 76 Calcium 9.1 Assessment/Plan All Active Problems (Last Reviewed 11/20/17 @ 18:03 by Graciela Andrew, SET UP AND LAY OUT INSPECTOR-C) HCAP (healthcare-associated pneumonia) (Acute) Shortness of breath (Acute) Healthcare associated bacterial pneumonia (Acute) History of hip replacement (Resolved) Surgical site infection (Resolved) multilobar HCAP (Acute) Acute respiratory failure with hypoxia (Acute) CHF (congestive heart failure) (Acute) Neck swelling (Acute) Accelerated hypertension (Resolved) Chest pain (Resolved) DVT of lower extremity (deep venous thrombosis) (Resolved) Nephrolithiasis (Resolved) Pt is 83 y/o female today with hx as outlined above in HPI. Recurring pneumonia and CHF with extensive comorbidities and Pulm fibrosis, pulm Htn, CHF, CAD, cardiomyopathy. In TCU for rehab and strengthening. O2 dependent and on prn aerosols. Meds and reports noted. Met with pt and her dtrs x 3. Staff reports pt responding to therapies with some improvement in strength and conditioning but slowly. She is frail and fatigued, weak. Goal is to return to her apt and have dtrs help her with 24 hour care. Resume home health, etc.. Concern for multiple admits and comorbidities. hx of wt loss and but appetite is picking up here. Now O2 dependent and does not want intubation or aggressvie care. Would like to avoid hospitalization, etc.. Feel prognosis is guarded at best at this time. Likely poor overall with underlying conditions, wt loss, O2 dependence and recurring pneumonia. Suggest pulm and cardiology f/u. Would schedule rtc O2 and aerosols. MEds reviewed and concern for poly pharmacy. Anticipate therapies and care here until end of next week. Advance care planning discussion with them. Would be appropriate for hospice if further decline noted or recurrring symptoms. Agree with neurontin for neuropathy pain and prn tylenol and ultram. Up with walker and activity as able. Monitor labs, anemia and wt. They are agreeable to palliative f/u at home upon dc and will monitor progress, symptom mgmt and conversion to hospice care as needed and indicated and likley in the near future. Support and education given today. They are pretty realistic about her conditions and prognosis. Will f/u. thanks.
--- NOTE | 2018-01-05 13:04 | CASEMGMT ---
Social Work Dr. Melo to see resident per Palliative Care Consult that was made prior to resident admission to the Transitional Care Unit. Dr. Melo meeting with resident and resident family. Resident agreeable to Palliative Care Services. Dr. Melo reporting to have spoken with resident in regards to hospice services and that resident and resident family are not ready for this yet. Resident to continue with further care and treatment on the Transitional Care Unit. Will continue to follow. Nay BARBA, CREMATORIUM OPERATOR
--- NOTE | 2018-01-05 15:24 | PCM.PN.RX ---
<Cj Novoa D - Last Filed: 01/05/18 15:24> Progress Note - Pharmacy Subjective: TCU Admission Objective: Allergies adhesive Allergy (Verified 12/29/17 20:09) Other Blisters etodolac Allergy (Verified 11/20/17 09:14) Unknown oxycodone HCl [From Percocet] Allergy (Verified 12/29/17 20:09) Hives phenobarbital Allergy (Verified 11/20/17 09:14) Unknown tolmetin sodium [From Tolectin] Allergy (Verified 11/20/17 09:14) Unknown venlafaxine Allergy (Verified 11/20/17 09:14) Unknown nitroglycerin Adverse Reaction (Verified 12/29/17 20:52) Other Headach nitropatch Allergy (Uncoded 11/20/17 09:14) unknown Current Medications Generic Name Dose Route Start Last Admin Trade Name Freq PRN Reason Stop Dose Admin Acetaminophen 1,000 mg 12/29/17 22:26 01/04/18 15:13 Tylenol PO 1,000 mg Q8H PRN PRN Administration MILD PAIN (1-3/10) Albuterol/Ipratropium 3 ml 01/05/18 12:15 Duoneb INHALATION Q6HWA.RT WENDY Albuterol/Ipratropium 3 ml 01/05/18 12:15 Duoneb INHALATION Q4H PRN PRN sob/wheezing Amlodipine Besylate 5 mg 12/30/17 06:00 01/05/18 05:30 Norvasc PO 5 mg DAILY WENDY Administration Aspirin 81 mg 12/30/17 08:00 01/05/18 09:00 Ecotrin PO 81 mg DAILY@0800 WENDY Administration Atorvastatin Calcium 20 mg 12/29/17 22:00 01/04/18 20:56 Lipitor PO 20 mg QHS [facility]Y Administration Bisacodyl 10 mg 12/29/17 22:25 Dulcolax PO DAILY PRN Constipation Budesonide 0.5 mg 01/03/18 11:03 Pulmicort Aerosol INHALATION Q12H.RT PRN sob/wheezing Calamine/Phenol 1 applic 12/29/17 22:00 01/05/18 05:32 Calmoseptine Ointment TOPICAL 1 applicatio 0600,2200 WENDY Administration Protocol Carvedilol 25 mg 12/29/17 22:00 01/05/18 05:30 Coreg PO 25 mg BID [facility] Administration Cholecalciferol 1,000 unit 12/30/17 08:00 01/05/18 09:00 Vitamin D PO 1,000 unit DAILY@0800 [facility] Administration Emollient Ointment 1 applic 12/30/17 06:00 01/05/18 05:31 Eucerin Intensive Repair TOPICAL 1 applicatio 0600,2200 [facility] Administration Protocol Escitalopram Oxalate 10 mg 12/30/17 06:00 01/05/18 05:30 Lexapro PO 10 mg DAILY [facility] Administration Furosemide 40 mg 12/30/17 06:00 01/05/18 05:30 Lasix PO 40 mg DAILY [facility] Administration Gabapentin 100 mg 12/30/17 12:00 01/05/18 12:08 Neurontin PO 100 mg LUNCH [facility] Administration Gabapentin 300 mg 12/29/17 22:00 01/04/18 20:55 Neurontin PO 300 mg QHS [facility] Administration Gabapentin 100 mg 12/30/17 08:00 01/05/18 09:00 Neurontin PO 100 mg BREAKFAST [facility] Administration Sodium Chloride 250 mls @ 15 mls/hr 12/29/17 21:52 01/01/18 21:55 IV 15 mls/hr .[id number] PRN Administration SALINE FLUSH Lisinopril 40 mg 12/29/17 22:00 01/04/18 20:55 Zestril PO 40 mg QHS [facility] Administration Magnesium Oxide 400 mg 12/30/17 08:00 01/05/18 09:00 Mag-Ox 400 PO 400 mg DAILY@0800 [facility] Administration Nitroglycerin 0.4 mg 12/29/17 19:31 Nitrostat SUBLINGUAL Q5M PRN Chest Pain Pantoprazole Sodium 40 mg 12/30/17 06:00 01/05/18 05:30 Protonix PO 40 mg DAILY [facility] Administration Polyethylene Glycol 17 gm 12/30/17 06:00 01/05/18 05:30 Miralax PO Not Given DAILY [facility] Polysaccharide Iron Complex 150 mg 12/30/17 08:00 01/05/18 09:00 Ferrex 150 PO 150 mg QODAY@0800 [facility] Administration Potassium Chloride 20 meq 01/04/18 08:00 01/05/18 09:00 K-Dur PO 20 meq DAILYCM [facility] Administration Senna/Docusate Sodium 1 tablet 12/30/17 06:00 01/05/18 05:30 Senokot-S, Dilia-Colace PO Not Given BID [facility] Sodium Chloride 5 - 30 ml 12/29/17 21:52 01/02/18 21:26 IV 20 ml UD PRN Administration SALINE FLUSH Tramadol HCl 50 mg 12/29/17 22:26 01/01/18 15:30 Ultram PO 50 mg Q6H PRN PRN Administration MODERATE PAIN (4-5/10) Tuberculin PPD 5 tu 01/06/18 10:00 Tubersol, Aplisol, Ppd ID 01/06/18 10:01 X1 ONE Warfarin Sodium 5 mg 01/04/18 17:00 01/04/18 17:13 Coumadin (Pbkc) PO 5 mg DAILY@1700 [facility] Administration Problem List (Last Reviewed 11/20/17 @ 18:03 by Graciela Andrew, CONTRACT ATTORNEY-C) Shortness of breath (Acute) Healthcare associated bacterial pneumonia (Acute) Pulmonary fibrosis (Chronic) Coronary artery disease (Chronic) Hypothyroidism (Chronic) TIA (transient ischemic attack) (Chronic) Vital Signs Temp Pulse Resp BP Pulse Ox 97.3 F L 76 18 112/51 L 100 01/04/18 15:14 01/04/18 15:14 01/04/18 15:14 01/04/18 15:14 01/05/18 07:09 Oxygen Flow Rate (L/min) 3 Oxygen Delivery Method Nasal Cannula Weight: 64.92 kg Body Mass Index (BMI) 25.7 Finger Stick Blood Glucose 156 Sodium 143 mmol/L (136-145) 01/05/18 05:20 Potassium 3.5 mmol/L (3.5-5.1) 01/05/18 05:20 Chloride 98 mmol/L (98-107) 01/05/18 05:20 Carbon Dioxide 37.0 mmol/L (21.0-32.0) H 01/05/18 05:20 Anion Gap 8 (5-15) 01/05/18 05:20 BUN 12 mg/dL (7-18) 01/05/18 05:20 Creatinine 0.57 mg/dL (0.55-1.02) 01/05/18 05:20 Est GFR (MDRD) Af Amer 132 mL/min (>60) 01/05/18 05:20 Est GFR (MDRD) Non-Af 109 mL/min (>60) 01/05/18 05:20 BUN/Creatinine Ratio 21.2 RATIO (10-20) H 01/05/18 05:20 Glucose 76 mg/dL (74-106) 01/05/18 05:20 Assessment/Plan: 1) Pain APAP for mild pain, gabapentin, tramadol for moderate pain. Continue to monitor daily pain scores, prn medication use. 2) Pulm Duoneb scheduled and prn, budesonide. Continue to monitor prn medication use, for shortness of breath. 3) CAD/HTN/CHF/AFib ASA, atorvastatin, carvedilol, amlodipine, prn ntg, furosemide/KCl, warfarin. Continue to monitor lipids, BP/HR, renal function, electrolytes, PT/INR, s/s bleeding, prn medication use, s/s chest pain. 4) GI Pantoprazole daily. Continue to monitor s/s GI distress. 5) Nutrition D, Fe, MgOx. Continue to monitor electrolytes. Psychotropic Medications: 6) Depression Escitalopram daily. Continue to monitor for s/s depression. Unnecessary Medications: None Bowel Regimen: 7) Senna/s, PEG, prn bisacodyl. Continue to monitor prn medication use, for constipation/diarrhea. Date of Note:: 01/05/18 - Provider Comments Provider responsibility: Provider responsible to enter orders to implement recommendations <Constantino Bach Chi - Last Filed: 01/05/18 17:45> Progress Note - Pharmacy Subjective: [] Objective: Allergies adhesive Allergy (Verified 12/29/17 20:09) Other Blisters etodolac Allergy (Verified 11/20/17 09:14) Unknown oxycodone HCl [From Percocet] Allergy (Verified 12/29/17 20:09) Hives phenobarbital Allergy (Verified 11/20/17 09:14) Unknown tolmetin sodium [From Tolectin] Allergy (Verified 11/20/17 09:14) Unknown venlafaxine Allergy (Verified 11/20/17 09:14) Unknown nitroglycerin Adverse Reaction (Verified 12/29/17 20:52) Other Headach nitropatch Allergy (Uncoded 11/20/17 09:14) unknown Current Medications Generic Name Dose Route Start Last Admin Trade Name Freq PRN Reason Stop Dose Admin Acetaminophen 1,000 mg 12/29/17 22:26 01/04/18 15:13 Tylenol PO 1,000 mg Q8H PRN PRN Administration MILD PAIN (1-3/10) Albuterol/Ipratropium 3 ml 01/05/18 12:15 Duoneb INHALATION Q6HWA.RT WENDY Albuterol/Ipratropium 3 ml 01/05/18 12:15 Duoneb INHALATION Q4H PRN PRN sob/wheezing Amlodipine Besylate 5 mg 12/30/17 06:00 01/05/18 05:30 Norvasc PO 5 mg DAILY [facility] Administration Aspirin 81 mg 12/30/17 08:00 01/05/18 09:00 Ecotrin PO 81 mg DAILY@0800 [facility] Administration Atorvastatin Calcium 20 mg 12/29/17 22:00 01/04/18 20:56 Lipitor PO 20 mg QHS [facility] Administration Bisacodyl 10 mg 12/29/17 22:25 Dulcolax PO DAILY PRN Constipation Budesonide 0.5 mg 01/03/18 11:03 Pulmicort Aerosol INHALATION Q12H.RT PRN sob/wheezing Calamine/Phenol 1 applic 12/29/17 22:00 01/05/18 05:32 Calmoseptine Ointment TOPICAL 1 applicatio 599,0 [facility] Administration Protocol Carvedilol 25 mg 12/29/17 22:00 01/05/18 17:28 Coreg PO 25 mg BID [facility] Administration Cholecalciferol 1,000 unit 12/30/17 08:00 01/05/18 09:00 Vitamin D PO 1,000 unit DAILY@0800 [facility] Administration Emollient Ointment 1 applic 12/30/17 06:00 01/05/18 05:31 Eucerin Intensive Repair TOPICAL 1 applicatio 599,2200 [facility] Administration Protocol Escitalopram Oxalate 10 mg 12/30/17 06:00 01/05/18 05:30 Lexapro PO 10 mg DAILY [facility] Administration Furosemide 40 mg 12/30/17 06:00 01/05/18 05:30 Lasix PO 40 mg DAILY [facility] Administration Gabapentin 100 mg 12/30/17 12:00 01/05/18 12:08 Neurontin PO 100 mg LUNCH [facility] Administration Gabapentin 300 mg 12/29/17 22:00 01/04/18 20:55 Neurontin PO 300 mg QHS [facility] Administration Gabapentin 100 mg 12/30/17 08:00 01/05/18 09:00 Neurontin PO 100 mg BREAKFAST [facility] Administration Sodium Chloride 250 mls @ 15 mls/hr 12/29/17 21:52 01/01/18 21:55 IV 15 mls/hr .[id number] PRN Administration SALINE FLUSH Lisinopril 40 mg 12/29/17 22:00 01/04/18 20:55 Zestril PO 40 mg QHS [facility] Administration Magnesium Oxide 400 mg 12/30/17 08:00 01/05/18 09:00 Mag-Ox 400 PO 400 mg DAILY@0800 [facility] Administration Nitroglycerin 0.4 mg 12/29/17 19:31 Nitrostat SUBLINGUAL Q5M PRN Chest Pain Pantoprazole Sodium 40 mg 12/30/17 06:00 01/05/18 05:30 Protonix PO 40 mg DAILY [facility] Administration Polyethylene Glycol 17 gm 12/30/17 06:00 01/05/18 05:30 Miralax PO Not Given DAILY [facility] Polysaccharide Iron Complex 150 mg 12/30/17 08:00 01/05/18 09:00 Ferrex 150 PO 150 mg QODAY@0800 [facility] Administration Potassium Chloride 20 meq 01/04/18 08:00 01/05/18 09:00 K-Dur PO 20 meq DAILYCM [facility] Administration Senna/Docusate Sodium 1 tablet 12/30/17 06:00 01/05/18 17:25 Senokot-S, Dilia-Colace PO Not Given BID [facility] Sodium Chloride 5 - 30 ml 12/29/17 21:52 01/02/18 21:26 IV 20 ml UD PRN Administration SALINE FLUSH Tramadol HCl 50 mg 12/29/17 22:26 01/01/18 15:30 Ultram PO 50 mg Q6H PRN PRN Administration MODERATE PAIN (4-5/10) Tuberculin PPD 5 tu 01/06/18 10:00 Tubersol, Aplisol, Ppd ID 01/06/18 10:01 X1 ONE Warfarin Sodium 5 mg 01/04/18 17:00 01/05/18 17:28 Coumadin (Pbkc) PO 5 mg DAILY@1700 [facility] Administration Problem List (Last Reviewed 11/20/17 @ 18:03 by BETTIE Shah) Shortness of breath (Acute) Healthcare associated bacterial pneumonia (Acute) Pulmonary fibrosis (Chronic) Coronary artery disease (Chronic) Hypothyroidism (Chronic) TIA (transient ischemic attack) (Chronic) Vital Signs Temp Pulse Resp BP Pulse Ox 97.2 F L 70 18 102/58 L 98 01/05/18 15:40 01/05/18 17:28 01/05/18 15:40 01/05/18 17:28 01/05/18 15:40 Oxygen Flow Rate (L/min) 4 Oxygen Delivery Method Nasal Cannula Weight: 64.92 kg Body Mass Index (BMI) 25.7 Finger Stick Blood Glucose 156 Sodium 143 mmol/L (136-145) 01/05/18 05:20 Potassium 3.5 mmol/L (3.5-5.1) 01/05/18 05:20 Chloride 98 mmol/L (98-107) 01/05/18 05:20 Carbon Dioxide 37.0 mmol/L (21.0-32.0) H 01/05/18 05:20 Anion Gap 8 (5-15) 01/05/18 05:20 BUN 12 mg/dL (7-18) 01/05/18 05:20 Creatinine 0.57 mg/dL (0.55-1.02) 01/05/18 05:20 Est GFR (MDRD) Af Amer 132 mL/min (>60) 01/05/18 05:20 Est GFR (MDRD) Non-Af 109 mL/min (>60) 01/05/18 05:20 BUN/Creatinine Ratio 21.2 RATIO (10-20) H 01/05/18 05:20 Glucose 76 mg/dL (74-106) 01/05/18 05:20 Assessment/Plan: Psychotropic Medications: Unnecessary Medications: Bowel Regimen: - Provider Comments Provider responsibility: Provider responsible to enter orders to implement recommendations Provider Comments to Recommendations by Pharmacy: Agree
--- NOTE | 2018-01-05 15:30 | PHA.CONS_ITS ---
<Cj Novoa D - Last Filed: 01/05/18 15:24> Progress Note - Pharmacy Subjective: TCU Admission Objective: Allergies adhesive Allergy (Verified 12/29/17 20:09) Other Blisters etodolac Allergy (Verified 11/20/17 09:14) Unknown oxycodone HCl [From Percocet] Allergy (Verified 12/29/17 20:09) Hives phenobarbital Allergy (Verified 11/20/17 09:14) Unknown tolmetin sodium [From Tolectin] Allergy (Verified 11/20/17 09:14) Unknown venlafaxine Allergy (Verified 11/20/17 09:14) Unknown nitroglycerin Adverse Reaction (Verified 12/29/17 20:52) Other Headach nitropatch Allergy (Uncoded 11/20/17 09:14) unknown Current Medications Generic Name Dose Route Start Last Admin Trade Name Freq PRN Reason Stop Dose Admin Acetaminophen 1,000 mg 12/29/17 22:26 01/04/18 15:13 Tylenol PO 1,000 mg Q8H PRN PRN Administration MILD PAIN (1-3/10) Albuterol/Ipratropium 3 ml 01/05/18 12:15 Duoneb INHALATION Q6HWA.RT WENDY Albuterol/Ipratropium 3 ml 01/05/18 12:15 Duoneb INHALATION Q4H PRN PRN sob/wheezing Amlodipine Besylate 5 mg 12/30/17 06:00 01/05/18 05:30 Norvasc PO 5 mg DAILY [facility] Administration Aspirin 81 mg 12/30/17 08:00 01/05/18 09:00 Ecotrin PO 81 mg DAILY@0800 [facility] Administration Atorvastatin Calcium 20 mg 12/29/17 22:00 01/04/18 20:56 Lipitor PO 20 mg QHS [facility] Administration Bisacodyl 10 mg 12/29/17 22:25 Dulcolax PO DAILY PRN Constipation Budesonide 0.5 mg 01/03/18 11:03 Pulmicort Aerosol INHALATION Q12H.RT PRN sob/wheezing Calamine/Phenol 1 applic 12/29/17 22:00 01/05/18 05:32 Calmoseptine Ointment TOPICAL 1 applicatio 0600,2200 [facility] Administration Protocol Carvedilol 25 mg 12/29/17 22:00 01/05/18 05:30 Coreg PO 25 mg BID [facility] Administration Cholecalciferol 1,000 unit 12/30/17 08:00 01/05/18 09:00 Vitamin D PO 1,000 unit DAILY@0800 [facility] Administration Emollient Ointment 1 applic 12/30/17 06:00 01/05/18 05:31 Eucerin Intensive Repair TOPICAL 1 applicatio 0600,2200 [facility] Administration Protocol Escitalopram Oxalate 10 mg 12/30/17 06:00 01/05/18 05:30 Lexapro PO 10 mg DAILY [facility] Administration Furosemide 40 mg 12/30/17 06:00 01/05/18 05:30 Lasix PO 40 mg DAILY [facility] Administration Gabapentin 100 mg 12/30/17 12:00 01/05/18 12:08 Neurontin PO 100 mg LUNCH [facility] Administration Gabapentin 300 mg 12/29/17 22:00 01/04/18 20:55 Neurontin PO 300 mg QHS [facility] Administration Gabapentin 100 mg 12/30/17 08:00 01/05/18 09:00 Neurontin PO 100 mg BREAKFAST [facility] Administration Sodium Chloride 250 mls @ 15 mls/hr 12/29/17 21:52 01/01/18 21:55 IV 15 mls/hr .[id number] PRN Administration SALINE FLUSH Lisinopril 40 mg 12/29/17 22:00 01/04/18 20:55 Zestril PO 40 mg QHS [facility] Administration Magnesium Oxide 400 mg 12/30/17 08:00 01/05/18 09:00 Mag-Ox 400 PO 400 mg DAILY@0800 [facility] Administration Nitroglycerin 0.4 mg 12/29/17 19:31 Nitrostat SUBLINGUAL Q5M PRN Chest Pain Pantoprazole Sodium 40 mg 12/30/17 06:00 01/05/18 05:30 Protonix PO 40 mg DAILY [facility] Administration Polyethylene Glycol 17 gm 12/30/17 06:00 01/05/18 05:30 Miralax PO Not Given DAILY [facility] Polysaccharide Iron Complex 150 mg 12/30/17 08:00 01/05/18 09:00 Ferrex 150 PO 150 mg QODAY@0800 [facility] Administration Potassium Chloride 20 meq 01/04/18 08:00 01/05/18 09:00 K-Dur PO 20 meq DAILYCM [facility] Administration Senna/Docusate Sodium 1 tablet 12/30/17 06:00 01/05/18 05:30 Senokot-S, Dilia-Colace PO Not Given BID [facility] Sodium Chloride 5 - 30 ml 12/29/17 21:52 01/02/18 21:26 IV 20 ml UD PRN Administration SALINE FLUSH Tramadol HCl 50 mg 12/29/17 22:26 01/01/18 15:30 Ultram PO 50 mg Q6H PRN PRN Administration MODERATE PAIN (4-5/10) Tuberculin PPD 5 tu 01/06/18 10:00 Tubersol, Aplisol, Ppd ID 01/06/18 10:01 X1 ONE Warfarin Sodium 5 mg 01/04/18 17:00 01/04/18 17:13 Coumadin (Pbkc) PO 5 mg DAILY@1700 [facility] Administration Problem List (Last Reviewed 11/20/17 @ 18:03 by Graciela Andrew, SIDE PULLER-C) Shortness of breath (Acute) Healthcare associated bacterial pneumonia (Acute) Pulmonary fibrosis (Chronic) Coronary artery disease (Chronic) Hypothyroidism (Chronic) TIA (transient ischemic attack) (Chronic) Vital Signs Temp Pulse Resp BP Pulse Ox 97.3 F L 76 18 112/51 L 100 01/04/18 15:14 01/04/18 15:14 01/04/18 15:14 01/04/18 15:14 01/05/18 07:09 Oxygen Flow Rate (L/min) 3 Oxygen Delivery Method Nasal Cannula Weight: 64.92 kg Body Mass Index (BMI) 25.7 Finger Stick Blood Glucose 156 Sodium 143 mmol/L (136-145) 01/05/18 05:20 Potassium 3.5 mmol/L (3.5-5.1) 01/05/18 05:20 Chloride 98 mmol/L (98-107) 01/05/18 05:20 Carbon Dioxide 37.0 mmol/L (21.0-32.0) H 01/05/18 05:20 Anion Gap 8 (5-15) 01/05/18 05:20 BUN 12 mg/dL (7-18) 01/05/18 05:20 Creatinine 0.57 mg/dL (0.55-1.02) 01/05/18 05:20 Est GFR (MDRD) Af Amer 132 mL/min (>60) 01/05/18 05:20 Est GFR (MDRD) Non-Af 109 mL/min (>60) 01/05/18 05:20 BUN/Creatinine Ratio 21.2 RATIO (10-20) H 01/05/18 05:20 Glucose 76 mg/dL (74-106) 01/05/18 05:20 Assessment/Plan: 1) Pain APAP for mild pain, gabapentin, tramadol for moderate pain. Continue to monitor daily pain scores, prn medication use. 2) Pulm Duoneb scheduled and prn, budesonide. Continue to monitor prn medication use , for shortness of breath. 3) CAD/HTN/CHF/AFib ASA, atorvastatin, carvedilol, amlodipine, prn ntg, furosemide/KCl, warfarin. Continue to monitor lipids, BP/HR, renal function, electrolytes, PT/ INR, s/s bleeding, prn medication use, s/s chest pain. 4) GI Pantoprazole daily. Continue to monitor s/s GI distress. 5) Nutrition D, Fe, MgOx. Continue to monitor electrolytes. Psychotropic Medications: 6) Depression Escitalopram daily. Continue to monitor for s/s depression. Unnecessary Medications: None Bowel Regimen: 7) Senna/s, PEG, prn bisacodyl. Continue to monitor prn medication use, for constipation/diarrhea. Date of Note:: 01/05/18 - Provider Comments Provider responsibility: Provider responsible to enter orders to implement recommendations <Constantino Bach Chi - Last Filed: 01/05/18 17:45> Progress Note - Pharmacy Subjective: [] Objective: Allergies adhesive Allergy (Verified 12/29/17 20:09) Other Blisters etodolac Allergy (Verified 11/20/17 09:14) Unknown oxycodone HCl [From Percocet] Allergy (Verified 12/29/17 20:09) Hives phenobarbital Allergy (Verified 11/20/17 09:14) Unknown tolmetin sodium [From Tolectin] Allergy (Verified 11/20/17 09:14) Unknown venlafaxine Allergy (Verified 11/20/17 09:14) Unknown nitroglycerin Adverse Reaction (Verified 12/29/17 20:52) Other Headach nitropatch Allergy (Uncoded 11/20/17 09:14) unknown Current Medications Generic Name Dose Route Start Last Admin Trade Name Freq PRN Reason Stop Dose Admin Acetaminophen 1,000 mg 12/29/17 22:26 01/04/18 15:13 Tylenol PO 1,000 mg Q8H PRN PRN Administration MILD PAIN (1-3/10) Albuterol/Ipratropium 3 ml 01/05/18 12:15 Duoneb INHALATION Q6HWA.RT WEDNY Albuterol/Ipratropium 3 ml 01/05/18 12:15 Duoneb INHALATION Q4H PRN PRN sob/wheezing Amlodipine Besylate 5 mg 12/30/17 06:00 01/05/18 05:30 Norvasc PO 5 mg DAILY [facility] Administration Aspirin 81 mg 12/30/17 08:00 01/05/18 09:00 Ecotrin PO 81 mg DAILY@0800 [facility] Administration Atorvastatin Calcium 20 mg 12/29/17 22:00 01/04/18 20:56 Lipitor PO 20 mg QHS [facility] Administration Bisacodyl 10 mg 12/29/17 22:25 Dulcolax PO DAILY PRN Constipation Budesonide 0.5 mg 01/03/18 11:03 Pulmicort Aerosol INHALATION Q12H.RT PRN sob/wheezing Calamine/Phenol 1 applic 12/29/17 22:00 01/05/18 05:32 Calmoseptine Ointment TOPICAL 1 applicatio 599,0 [facility] Administration Protocol Carvedilol 25 mg 12/29/17 22:00 01/05/18 17:28 Coreg PO 25 mg BID [facility] Administration Cholecalciferol 1,000 unit 12/30/17 08:00 01/05/18 09:00 Vitamin D PO 1,000 unit DAILY@0800 [facility] Administration Emollient Ointment 1 applic 12/30/17 06:00 01/05/18 05:31 Eucerin Intensive Repair TOPICAL 1 applicatio 599,2200 [facility] Administration Protocol Escitalopram Oxalate 10 mg 12/30/17 06:00 01/05/18 05:30 Lexapro PO 10 mg DAILY [facility] Administration Furosemide 40 mg 12/30/17 06:00 01/05/18 05:30 Lasix PO 40 mg DAILY [facility] Administration Gabapentin 100 mg 12/30/17 12:00 01/05/18 12:08 Neurontin PO 100 mg LUNCH [facility] Administration Gabapentin 300 mg 12/29/17 22:00 01/04/18 20:55 Neurontin PO 300 mg QHS [facility] Administration Gabapentin 100 mg 12/30/17 08:00 01/05/18 09:00 Neurontin PO 100 mg BREAKFAST [facility] Administration Sodium Chloride 250 mls @ 15 mls/hr 12/29/17 21:52 01/01/18 21:55 IV 15 mls/hr .[id number] PRN Administration SALINE FLUSH Lisinopril 40 mg 12/29/17 22:00 01/04/18 20:55 Zestril PO 40 mg QHS [facility] Administration Magnesium Oxide 400 mg 12/30/17 08:00 01/05/18 09:00 Mag-Ox 400 PO 400 mg DAILY@0800 [facility] Administration Nitroglycerin 0.4 mg 12/29/17 19:31 Nitrostat SUBLINGUAL Q5M PRN Chest Pain Pantoprazole Sodium 40 mg 12/30/17 06:00 01/05/18 05:30 Protonix PO 40 mg DAILY [facility] Administration Polyethylene Glycol 17 gm 12/30/17 06:00 01/05/18 05:30 Miralax PO Not Given DAILY [facility] Polysaccharide Iron Complex 150 mg 12/30/17 08:00 01/05/18 09:00 Ferrex 150 PO 150 mg QODAY@0800 [facility] Administration Potassium Chloride 20 meq 01/04/18 08:00 01/05/18 09:00 K-Dur PO 20 meq DAILYCM [facility] Administration Senna/Docusate Sodium 1 tablet 12/30/17 06:00 01/05/18 17:25 Senokot-S, Dilia-Colace PO Not Given BID [facility] Sodium Chloride 5 - 30 ml 12/29/17 21:52 01/02/18 21:26 IV 20 ml UD PRN Administration SALINE FLUSH Tramadol HCl 50 mg 12/29/17 22:26 01/01/18 15:30 Ultram PO 50 mg Q6H PRN PRN Administration MODERATE PAIN (4-5/10) Tuberculin PPD 5 tu 01/06/18 10:00 Tubersol, Aplisol, Ppd ID 01/06/18 10:01 X1 ONE Warfarin Sodium 5 mg 01/04/18 17:00 01/05/18 17:28 Coumadin (Pbkc) PO 5 mg DAILY@1700 [facility] Administration Problem List (Last Reviewed 11/20/17 @ 18:03 by BETTIE Shah) Shortness of breath (Acute) Healthcare associated bacterial pneumonia (Acute) Pulmonary fibrosis (Chronic) Coronary artery disease (Chronic) Hypothyroidism (Chronic) TIA (transient ischemic attack) (Chronic) Vital Signs Temp Pulse Resp BP Pulse Ox 97.2 F L 70 18 102/58 L 98 01/05/18 15:40 01/05/18 17:28 01/05/18 15:40 01/05/18 17:28 01/05/18 15:40 Oxygen Flow Rate (L/min) 4 Oxygen Delivery Method Nasal Cannula Weight: 64.92 kg Body Mass Index (BMI) 25.7 Finger Stick Blood Glucose 156 Sodium 143 mmol/L (136-145) 01/05/18 05:20 Potassium 3.5 mmol/L (3.5-5.1) 01/05/18 05:20 Chloride 98 mmol/L (98-107) 01/05/18 05:20 Carbon Dioxide 37.0 mmol/L (21.0-32.0) H 01/05/18 05:20 Anion Gap 8 (5-15) 01/05/18 05:20 BUN 12 mg/dL (7-18) 01/05/18 05:20 Creatinine 0.57 mg/dL (0.55-1.02) 01/05/18 05:20 Est GFR (MDRD) Af Amer 132 mL/min (>60) 01/05/18 05:20 Est GFR (MDRD) Non-Af 109 mL/min (>60) 01/05/18 05:20 BUN/Creatinine Ratio 21.2 RATIO (10-20) H 01/05/18 05:20 Glucose 76 mg/dL (74-106) 01/05/18 05:20 Assessment/Plan: Psychotropic Medications: Unnecessary Medications: Bowel Regimen: - Provider Comments Provider responsibility: Provider responsible to enter orders to implement recommendations Provider Comments to Recommendations by Pharmacy: Agree
[2018-01-05 15:40] VITALS: BP 93/54; PULSE 65; RESP 18; TEMP 36.2; O2SAT 98
[2018-01-05 17:28] VITALS: BP 102/58; PULSE 70
[2018-01-05] MEDS: Gabapentin 300 MG Capsule PO (20:55)
[2018-01-05] MEDS: Atorvastatin Calcium 20 MG Tablet PO (20:55)
[2018-01-05] MEDS: Lisinopril 40 MG Tablet PO (20:55)
[2018-01-06] MEDS: Carvedilol 25 MG Tablet PO ×2 (05:39→17:33)
[2018-01-06] MEDS: amLODIPine 5 MG Tablet PO (05:40)
[2018-01-06] MEDS: Escitalopram Oxalate 10 MG Tablet PO (05:40)
[2018-01-06] MEDS: Menthol/Lanolin/Calamine/Znox 113 GM Tube 1 APPLIC TOPICAL ×2 (05:40→21:15)
[2018-01-06] MEDS: Pantoprazole Sodium 40 MG Tablet PO (05:40)
[2018-01-06] MEDS: Furosemide 40 MG Tablet PO (05:40)
[2018-01-06 06:03] LABS: Absolute Neutrophil Count 11.4 X10^3/uL (2.0-7.7); Basophil# 0.02 X10^3/uL; Basophil% 0.2 % (0-1); Eosinophil# 0.43 X10^3/uL; Eosinophils% 3.3 % (0-5); Hematocrit 30.6 % (37-47); Mean Corp Hgb Conc 29.4 g/gl (32-36); Mean Corpuscular Hgb 27.5 pg (27.0-32.0); Mean Corpuscular Volume 93.6 fL (81-99); Mean Platelet Vol. 10.9 fl (6.2-12.0); Monocyte# 0.92 X10^3/uL; Neutrophil # 11.38 X10^3/uL (2.7-7.7); Neutrophil % 86.4 % (47-70); Platelet Count 205 K/mm3 (150-450); RBC Distribution Width CV 16.3 % (11.6-14.6); RBC Distribution Width SD 56.8 fl (35.1-43.9); Red Blood Count 3.27 M/mm3 (4.2-5.4); White Blood Count 13.2 K/mm3 (4.4-11.0)
[2018-01-06 06:04] LABS: POSITIVE COUNT NO; POSITIVE DIFFERENTIAL YES; POSITIVE MORPHOLOGY NO
[2018-01-06 06:05] LABS: Differential Indicated SCAN CRITERIA MET
[2018-01-06 06:13] LABS: Anion Gap 7 (5-15); BUN 19 mg/dL (7-18); BUN/Creat Ratio 25.4 RATIO (10-20); Calcium,Total 9.2 mg/dL (8.5-10.1); Chloride 100 mmol/L (98-107); Creatinine, Serum 0.75 mg/dL (0.55-1.02); EST Glomerular Filtration Rate 79 mL/min (>60); Est Glom Filt Rate - Afr Amer 96 mL/min (>60); Glucose 121 mg/dL (74-106); Potassium 4.3 mmol/L (3.5-5.1); Sodium Level 143 mmol/L (136-145)
[2018-01-06 07:18] VITALS: PULSE 80; RESP 16; O2SAT 99
[2018-01-06] MEDS: Ipratropium/Albuterol Sulfate 3 ML AMPUL.NEB INHALATION ×3 (07:18→18:55)
--- NOTE | 2018-01-06 09:02 | CASEMGMT ---
Plan of care meeting held. Resident present as well as resident family. Resident Medicare benefit is exhausted on 01/14/18 with a discharge or resident to begin self pay on 01/15/18. Resident and resident family choosing to discharge to home on 01/15/18. Team is recommending for resident to have 24hr care within the home at time of discharge. Resident family voicing that resident will have 24hr care in the home at time of discharge. Physical and Occupational therapy recommending for resident to continue with services within the home. Resident and resident family aware agreeable to recommendation and requesting for a home health aide and nurse to be set up at [facility]. Resident and resident family requesting for home health services to be set up through [facility] ([facility]). Resident reporting to have walker, nebulizer and oxygen already set up within the home and to have no durable medical equipment needs at this time. Support given. Proposed discharge date: 01/15/18 PLAN: Discharge to home with daughters (24hr care) and home health services. Resident to also have Palliative care within the home. Nay BARBA, SENIOR IT SPECIALIST
[2018-01-06] MEDS: Aspirin E.C. 81 MG Tablet PO (09:27)
[2018-01-06] MEDS: Gabapentin 100 MG Capsule PO ×2 (09:27→12:16)
[2018-01-06] MEDS: Magnesium Oxide 400 MG Tablet PO (09:27)
--- NOTE | 2018-01-06 11:35 | MDS.RN ---
Information for the mds was obtained from review of the clinical record, interview of resident, staff, and direct observation of resident's care.
[2018-01-06] MEDS: Tuberculin,Purif.prot.deriv. 50 TU/ML Vial 5 ML ID (12:14)
[2018-01-06] MEDS: Acetaminophen 500 MG Tablet 1000 MG PO (15:40)
[2018-01-06 15:54] VITALS: BP 133/76; PULSE 66; RESP 20; TEMP 38.8; O2SAT 98
[2018-01-06 16:09] VITALS: PULSE 78; RESP 20
--- NOTE | 2018-01-06 16:14 | NURSING ---
Addendum entered by Bev Alfonso 01/06/18 18:39: chest xray results called to dr bach, new order to check urine and changed meds to IV rocephin & zithromax x7 days. Original Note: pt with temp 102.5, skin warm/hot to touch. Lungs w/crackles T/O, Dr Bach notified. New order for CXR, sputum, zpak and cefdinir 300 bid x10 days
[2018-01-06 18:33] LABS: Mucous, Urine 0 SEEN /hpf (<or=2+); Red Blood Cells-Urine 0 SEEN /hpf (0-5); Squamous Epithelial Cells - UA 0 SEEN /hpf (5-10); White Blood Cells 0 SEEN /hpf (0-5)
[2018-01-06 18:50] LABS: Color, Urine Yellow (Yellow); Glucose, Dipstick Normal (Normal); Ketone-Dipstick 5 mg/dl (Negative); Leukocyte Esterase-Dipstick 25 /ul (Negative); Nitrite-Dipstick Negative (Negative); Occult Blood-Urine Negative /ul (Negative); Protein-Dipstick 30 mg/dl (Negative); Specific Gravity, Urine 1.015 (1.002-1.030); Urine Bilirubin Dipstick Negative (Negative); Urine Clarity Clear (Clear); Urine Urobilinogen Normal (Normal)
[2018-01-06] MEDS: 0.9% NaCl IVPB Med Flush (250 mL) 15 ML IV (18:50)
[2018-01-06] MEDS: 0.9% NaCl Peripheral Flush Adult/Peds IV (18:51)
[2018-01-06 18:55] VITALS: PULSE 87; RESP 18; O2SAT 99
[2018-01-06] MEDS: Budesonide Respules 0.5 MG/2 ML AMPUL.NEB. INHALATION (18:55)
[2018-01-06 19:05] LABS: Bacteria 1+ /hpf (None Seen)
--- NOTE | 2018-01-06 20:07 | NURSING ---
Dr Bach notified of UA results. N.O. for 1L NS @ 60cc/hr.
--- NOTE | 2018-01-06 20:53 | DCINST_ITS ---
- Discharge Diagnoses Current Active Problems: Current Active and Chronic Problems (Last Reviewed 11/20/17 @ 18:03 by BETTIE Shah) Shortness of breath (Acute) Healthcare associated bacterial pneumonia (Acute) Pulmonary fibrosis (Chronic) Coronary artery disease (Chronic) Hypothyroidism (Chronic) TIA (transient ischemic attack) (Chronic) You will use the following diet at home:: No restrictions, Regular Your food should be the consistency of: Regular Your liquids should be the consistency of: Regular/Thin Discharge Activity: Return to Normal Activity, May Shower, Use Walker Weight Bearing Status: Weight bearing as tolerated Call your doctor if you observe: Fever of 101 or Higher, Inability to urinate, Inability to have a bowel movement, Shortness of breath, Chest pain, Uncontrolled pain Allergies/Adverse Reactions: Allergies adhesive Allergy (Verified 12/29/17 20:09) Other Blisters etodolac Allergy (Verified 11/20/17 09:14) Unknown oxycodone HCl [From Percocet] Allergy (Verified 12/29/17 20:09) Hives phenobarbital Allergy (Verified 11/20/17 09:14) Unknown tolmetin sodium [From Tolectin] Allergy (Verified 11/20/17 09:14) Unknown venlafaxine Allergy (Verified 11/20/17 09:14) Unknown nitroglycerin Adverse Reaction (Verified 12/29/17 20:52) Other Headach nitropatch Allergy (Uncoded 11/20/17 09:14) unknown Medications to take at Discharge Magnesium Oxide [Mag-Ox 400] 400 mg PO DAILY@0809/17/15 Nitroglycerin [Nitrostat] 0.4 mg SUBLINGUAL Q5M PRN 09/20/15 gabapentin 100 mg capsule 100 mg PO BREAKFAST 05/05/17 amlodipine 5 mg tablet 5 mg PO DAILY 06/23/17 atorvastatin 40 mg tablet 20 mg PO QHS tab 06/23/17 Carvedilol [Coreg (Beta Gene)] 25 mg PO BID 07/06/17 Cholecalciferol (Vitamin D3) [Vitamin D3] 1,000 unit PO DAILY@0807/06/17 Aspirin E.C. [Ecotrin] 81 mg PO DAILY@0810/11/17 Furosemide [Lasix] 40 mg PO DAILY PRN 10/11/17 Escitalopram Oxalate [Lexapro] 10 mg PO DAILY 12/26/17 Esomeprazole Magnesium 40 mg PO DAILY 12/26/17 Gabapentin [Neurontin] 100 mg PO LUNCH 12/26/17 Gabapentin [Neurontin] 300 mg PO QHS 12/26/17 Iron Polysaccharide Complex [Ferrex 150] 150 mg PO QODAY@0800 12/26/17 Menthol/Lanolin/Calamine/Znox [Calmoseptine Ointment] 1 applic TOPICAL 0600, 2200 12/26/17 Quinapril HCl 40 mg PO QHS 12/26/17 Ipratropium/Albuterol Sulfate [Duoneb] 3 ml INHALATION Q4HWA.RT 12/29/17 Acetaminophen [Tylenol] 1,000 mg PO Q8H PRN PRN tablet 01/06/18 Budesonide Aerosol [Pulmicort Respules] 0.5 mg INHALATION Q12H.RT #60 ampul.neb. 01/06/18 Potassium Chloride [K-Dur] 20 meq PO DAILYCM tablet 01/06/18 Warfarin [Coumadin] 5 mg PO DAILY@1700 tablet 01/06/18 The following prescriptions were given: Budesonide Aerosol [Pulmicort Respules] 0.5 mg INHALATION Q12H.RT #60 ampul.neb. Orders to be completed after discharge: Prothrombin Time w/INR Time Frame: 1 Day, Location: Laboratory Primary Care Physician: Biajn Austin MD [Primary Care Provider] - Please follow up with your Primary Care Physician in: 1 week. Test Results: Test results from this visit will be discussed in further detail at your follow- up appointment, if applicable. Proposed Discharge Date: 01/15/18
--- NOTE | 2018-01-06 20:53 | PCM.DC.SUM ---
Discharge Date and Diagnosis - Problem List Patient Problems: Active and Suspected Problems (Last Reviewed 11/20/17 @ 18:03 by BETTIE Shah) Shortness of breath (Acute) Healthcare associated bacterial pneumonia (Acute) Date of Admission: 01/05/18 Date of Discharge: 01/15/18 - Primary Discharge Diagnosis Active and Suspected Problems (Last Reviewed 11/20/17 @ 18:03 by BETTIE Shah) Shortness of breath (Acute) Healthcare associated bacterial pneumonia (Acute) - Secondary Discharge Diagnosis Chronic Problems (Last Reviewed 11/20/17 @ 18:03 by BETTIE Shah) Pulmonary fibrosis (Chronic) Coronary artery disease (Chronic) Hypothyroidism (Chronic) TIA (transient ischemic attack) (Chronic) Pulmonary hypertension (Chronic) RVSP 66 mmHg Cardiomyopathy (Chronic) Ischemic cardiomyopathy (Chronic) Paroxysmal atrial fibrillation (Chronic) 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) Hyperthyroidism (Chronic) Hypokalemia (Chronic) Atherosclerotic heart disease of [place] coronary artery without angina pectoris (Chronic) CABG x1 RANDLE-LAD x/Aortic Valve Replacement Left bundle-branch block (Chronic) Nonrheumatic aortic valve stenosis (Chronic) HTN (hypertension) (Chronic) Other chest pain (Chronic) Presence of aortocoronary bypass graft (Chronic) Dyspnea on exertion (Chronic) Fatigue (Chronic) Chronic pulmonary heart disease (Chronic) CVA (cerebral infarction) (Chronic) Hyperlipidemia (Chronic) Paroxysmal ventricular tachycardia (Chronic) HTN (hypertension) (Chronic) Hypothyroidism associated with surgical procedure (Chronic) had a subtotal thyroidectomy for goiter Hemorrhoids (Chronic) Restless leg syndrome (Chronic) TIA (transient ischemic attack) (Chronic) multiple History of aortic valve replacement with bioprosthetic valve (Chronic) Hospital Course and Treatment Imaging Results: 01/06/18 16:40 Chest PA and Lateral [RAD] Stat Consultations 12/29/17 23:12 Consult: Onc/Wound/fishing accessories maker Routine Comment: Comments:: Coccyx: Moisture vs pressure Operations: None Procedures: None Summary of Care Provided: The patient is a 83 year old Female with below past medical history hospitalized for shortness of breath secondary to healthcare associated pneumonia, complicated by acute on chronic diastolic heart failure, pulmonary fibrosis, admitted to TCU with debility, here for rehabilitation, strengthening, prior to discharge home with family. Discharge to home with daughters (24 hour care), and Home Health Services. Resident will also have palliative care within the home. Discharge Diet: No Restrictions Discharge Activity: Return to Normal Activity, May Shower, Use Walker Weight Bearing Status: Weight bearing as tolerated Call your doctor if you observe: Fever of 101 or Higher, Inability to urinate, Inability to have a bowel movement, Shortness of breath, Chest pain, Uncontrolled pain Home Medications: Medications to take at Discharge Magnesium Oxide [Mag-Ox 400] 400 mg PO DAILY@0800 09/17/15 Nitroglycerin [Nitrostat] 0.4 mg SUBLINGUAL Q5M PRN 09/20/15 gabapentin 100 mg capsule 100 mg PO BREAKFAST 05/05/17 amlodipine 5 mg tablet 5 mg PO DAILY 06/23/17 atorvastatin 40 mg tablet 20 mg PO QHS tab 06/23/17 Carvedilol [Coreg (Beta Gene)] 25 mg PO BID 07/06/17 Cholecalciferol (Vitamin D3) [Vitamin D3] 1,000 unit PO DAILY@0800 07/06/17 Aspirin E.C. [Ecotrin] 81 mg PO DAILY@0810/11/17 Furosemide [Lasix] 40 mg PO DAILY PRN 10/11/17 Escitalopram Oxalate [Lexapro] 10 mg PO DAILY 12/26/17 Esomeprazole Magnesium 40 mg PO DAILY 12/26/17 Gabapentin [Neurontin] 100 mg PO LUNCH 12/26/17 Gabapentin [Neurontin] 300 mg PO QHS 12/26/17 Iron Polysaccharide Complex [Ferrex 150] 150 mg PO QODAY@0800 12/26/17 Menthol/Lanolin/Calamine/Znox [Calmoseptine Ointment] 1 applic TOPICAL 0600,2200 12/26/17 Quinapril HCl 40 mg PO QHS 12/26/17 Ipratropium/Albuterol Sulfate [Duoneb] 3 ml INHALATION Q4HWA.RT 12/29/17 Acetaminophen [Tylenol] 1,000 mg PO Q8H PRN PRN tablet 01/06/18 Budesonide Aerosol [Pulmicort Respules] 0.5 mg INHALATION Q12H.RT #60 ampul.neb. 01/06/18 Potassium Chloride [K-Dur] 20 meq PO DAILYCM tablet 01/06/18 Warfarin [Coumadin] 5 mg PO DAILY@1700 tablet 01/06/18 Following Prescrptions Were Given to Patient: Budesonide Aerosol [Pulmicort Respules] 0.5 mg INHALATION Q12H.RT #60 ampul.neb. Other Amb Orders: Prothrombin Time w/INR Time Frame: 1 Day, Location: Laboratory Primary Care Physician: Bijan Austin MD [Primary Care Provider] - Please follow up with your Primary Care Physician in: 1 week. Disposition: Home with Home Health Minutes spent on discharge:: 35 Patient Condition:: Poor Medical Necessity - Tobacco Use Smoking Status: Never smoker Tobacco Use: Non-smoker Meaningful Use Info Meaningful Use Diagnoses (Choose all that apply): None applicable
--- NOTE | 2018-01-06 20:55 | PCM.PN.HH ---
Home Health Note - Plan Overview of reason of hospitalization: The patient is a 83 year old Female with below past medical history hospitalized for shortness of breath secondary to healthcare associated pneumonia, complicated by acute on chronic diastolic heart failure, pulmonary fibrosis, admitted to TCU with debility, here for rehabilitation, strengthening, prior to discharge home with family. Discharge to home with daughters (24 hour care), and Home Health Services. Resident will also have palliative care within the home. Problems: Patient was seen for (Last Reviewed 11/20/17 @ 18:03 by Graciela Andrew NP-C) Shortness of breath (Acute) Healthcare associated bacterial pneumonia (Acute) Pulmonary fibrosis (Chronic) Coronary artery disease (Chronic) Hypothyroidism (Chronic) TIA (transient ischemic attack) (Chronic) Complete List of Medical Problems (Last Reviewed 11/20/17 @ 18:03 by Graciela Andrew NP-C) HCAP (healthcare-associated pneumonia) (Acute) Shortness of breath (Acute) Healthcare associated bacterial pneumonia (Acute) Pulmonary fibrosis (Chronic) Coronary artery disease (Chronic) Hypothyroidism (Chronic) TIA (transient ischemic attack) (Chronic) Pulmonary hypertension (Chronic) multilobar HCAP (Acute) Acute respiratory failure with hypoxia (Acute) CHF (congestive heart failure) (Acute) Cardiomyopathy (Chronic) Ischemic cardiomyopathy (Chronic) Paroxysmal atrial fibrillation (Chronic) 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) Hyperthyroidism (Chronic) Hypokalemia (Chronic) Atherosclerotic heart disease of [place] coronary artery without angina pectoris (Chronic) Left bundle-branch block (Chronic) Nonrheumatic aortic valve stenosis (Chronic) HTN (hypertension) (Chronic) Other chest pain (Chronic) Presence of aortocoronary bypass graft (Chronic) Dyspnea on exertion (Chronic) Fatigue (Chronic) Chronic pulmonary heart disease (Chronic) CVA (cerebral infarction) (Chronic) Hyperlipidemia (Chronic) Paroxysmal ventricular tachycardia (Chronic) HTN (hypertension) (Chronic) Neck swelling (Acute) Hypothyroidism associated with surgical procedure (Chronic) Hemorrhoids (Chronic) Restless leg syndrome (Chronic) TIA (transient ischemic attack) (Chronic) History of aortic valve replacement with bioprosthetic valve (Chronic) - Requirements and Reasons Disciplines Needed/Ordered: Retirement, Physical Therapy Reason for Disciplines: Disease Specific Monitoring/education, Medication Management/Knowledge Deficit, Gait Training, Stair Training, Fall Prevention, Home Safety/Equipment Instruction, Balance and/or Posture Training, Transfer Training Related To: Limited/Poor Endurance, Shortness of Breath with Activity, Physical Impairments, Unsteady Gait/Balance, Fall Risk Patient is unable to leave the home: Without Aid of Supportive Devices (crutches, cane, wheelchair, walker), Without the assistance of another person - Additional Disciplines Additional Disciplines Needed/Ordered: Occupational Therapy, Home Health Aide
[2018-01-06] MEDS: Ceftriaxone 1 GM/50 ML BAG IV (21:15)
[2018-01-06] MEDS: Atorvastatin Calcium 20 MG Tablet PO (21:17)
[2018-01-06] MEDS: Gabapentin 300 MG Capsule PO (21:17)
[2018-01-06] MEDS: Lisinopril 40 MG Tablet PO (21:17)
[2018-01-06] MEDS: 0.9% Normal Saline 1,000 ML 60 ML IV (22:16)
[2018-01-07] MEDS: Furosemide 40 MG Tablet PO (05:53)
[2018-01-07] MEDS: amLODIPine 5 MG Tablet PO (05:53)
[2018-01-07] MEDS: Pantoprazole Sodium 40 MG Tablet PO (05:53)
[2018-01-07] MEDS: Carvedilol 25 MG Tablet PO ×2 (05:53→17:14)
[2018-01-07] MEDS: Escitalopram Oxalate 10 MG Tablet PO (05:53)
[2018-01-07] MEDS: Menthol/Lanolin/Calamine/Znox 113 GM Tube 1 APPLIC TOPICAL ×2 (05:55→21:32)
[2018-01-07 06:00] LABS: International Normalized Ratio 1.9; Prothrombin Time (Protime)PT. 21.8 SECONDS (11.7-14.9)
--- NOTE | 2018-01-07 07:54 | NURSING ---
Addendum entered by Bev Alfonso 01/07/18 07:55: TCU community integration specialist notified, as well as RN child care supervisor. Original Note: Therapy yelled out for help in pts room, staff entered and pt sitting on floor next to bed @ 0715. Therapist reported that pt legs slid out and pt unable to stand up during transfer to B[facility]. Noted that pt was incont of stool during transfer from floor to back to bed with assist of 3 staff members. Vitals stable. oxygen in place at 4 liters. With pt laying in bed on back, noted internal rotation of lt leg. scar noted to left hip from a prior surgery. pt c/o pain to lt hip. Dr Bach updated, new order for xray. Teresa daughter notified of incident. VIDEO PRODUCTION ENGINEER taking pt to xray at this time.
[2018-01-07] MEDS: Aspirin E.C. 81 MG Tablet PO (08:31)
[2018-01-07] MEDS: Magnesium Oxide 400 MG Tablet PO (08:31)
[2018-01-07] MEDS: Gabapentin 100 MG Capsule PO ×2 (08:31→11:48)
[2018-01-07] MEDS: Iron Polysaccharide Complex 150 MG CAPSULE PO (08:31)
[2018-01-07] MEDS: 0.9% NaCl Peripheral Flush Adult/Peds IV ×2 (10:08→17:12)
[2018-01-07 10:36] VITALS: TEMP 39.4
[2018-01-07] MEDS: Acetaminophen 500 MG Tablet 1000 MG PO ×2 (10:51→19:01)
--- NOTE | 2018-01-07 11:12 | NURSING ---
Addendum entered by Bev Alfonso 01/07/18 14:26: pt with small emesis after eating some vegetable soup. Temp 99.5 orally. Family updated on all orders. Blood cultures pending. Pt resting in bed, call light in reach. Pt no void this AM, bladder scanned for 169cc Original Note: Dr Bach updated on temp of 102.9 this am, pt with chills this AM. New order for blood cultures & changed IV ATB to maxipime IV. Tylenol given. Will continue to monitor temp. daughter here and aware of above.
[2018-01-07 11:47] VITALS: TEMP 38.1
[2018-01-07 14:00] VITALS: TEMP 37.5
[2018-01-07 15:26] VITALS: BP 92/49; PULSE 86; RESP 20; TEMP 36.7; O2SAT 99
[2018-01-07] MEDS: 0.9% NaCl IVPB Med Flush (250 mL) 15 ML IV (17:12)
[2018-01-07] MEDS: Lisinopril 40 MG Tablet PO (21:29)
[2018-01-07] MEDS: Atorvastatin Calcium 20 MG Tablet PO (21:29)
[2018-01-07] MEDS: Gabapentin 300 MG Capsule PO (21:29)
[2018-01-07 21:33] VITALS: TEMP 36.8
[2018-01-07 21:57] VITALS: BP 86/40; PULSE 92; O2SAT 100
--- NOTE | 2018-01-07 22:10 | NURSING ---
Patient very lethargic and very pale. Patient able arouse and answer questions appropratiely but then falls back asleep. Per report patient has ran a temperature off an on. Currently patient very clammy but temperature is 98.3. BP 86/40 P 92 and irregular, o2 100 on [address] Bach notified of this. New orders given to send patient to ER to be admitted. Report called and given to Indy in the ER. Daughter Teresa notified of patient being sent down to ER.
== END 2018-01-08 03:02 | disposition short-term general hospital (02) | DRG 947 ==
PROVIDERS: Admitting Provider Family Medicine Geriatric Medicine; Family Provider Family Medicine; PCP Family Medicine; Visit Provider Family Medicine Geriatric Medicine
DX: R53.81 Other malaise (principal); I50.33 Acute on chronic diastolic (congestive) heart failure; J18.9 Pneumonia, unspecified organism; I11.0 Hypertensive heart disease with heart failure; I48.0 Paroxysmal atrial fibrillation; G25.81 Restless legs syndrome; J84.10 Pulmonary fibrosis, unspecified; I25.10 Atherosclerotic heart disease of native coronary artery without angina pectoris; Z86.73 Personal history of transient ischemic attack (TIA), and cerebral infarction without residual deficits; I27.20 Pulmonary hypertension, unspecified; Y95 Nosocomial condition; Z95.2 Presence of prosthetic heart valve; Z95.1 Presence of aortocoronary bypass graft; Z95.810 Presence of automatic (implantable) cardiac defibrillator; E78.5 Hyperlipidemia, unspecified; I25.2 Old myocardial infarction; K21.9 Gastro-esophageal reflux disease without esophagitis; E87.6 Hypokalemia; D50.9 Iron deficiency anemia, unspecified; E55.9 Vitamin D deficiency, unspecified; F32.9 Major depressive disorder, single episode, unspecified
CPT/HCPCS: 36415; 71046; 73502; 80048; 81001; 85025; 85610; 87040; 90732; 94640; 97110; 97116; 97162; 97165; 97530; 97535; 97802; G0009; J7030; J7050; A4216

== ENCOUNTER 2018-01-07 22:12 | Inpatient (IN) | payer MEDICARE, OTHER, SELFPAY ==
[2018-01-07 22:13] VITALS: BP 151/98; PULSE 79; RESP 14; TEMP 36.8; O2SAT 100; BMI 27.7
--- NOTE | 2018-01-07 22:46 | ED.VISSUMM ---
- ER Visit Summary Date of Service: 01/07/18 Chief Complaint: Low blood pressure, fall, fever History of Present Illness: The patient is a 83 F sent from TCU, for low blood pressure. Patient states she had a mechanical fall this morning while getting on the commode. She skidded down onto her hip. No head injury. Pain in left hip. Previous arthroplasty in his hip. Reported fever. Patient states she has been there for 3 weeks status post pneumonia. She wears chronic oxygen denies cough. Ambulates with a walker. Decreased urine output. No vomiting. States she has loose stools. Denies any blood in the stools. Family later came stating she does have history of anemia. Records know she is on warfarin history of DVT atrial fibrillation. No further complaints. Physical Examination: General: Alert and oriented ?3, no acute distress HEENT: Normocephalic, atraumatic. Moist mucosa membranes. Pale conjunctiva Neck: supple, nontender. Cardiovascular: Regular rate and rhythm, 3 out of 6 systolic murmurs Respiratory: Normal breath sounds, symmetric, no distress Abdomen: Soft, nontender, nondistended Rectal: No hemorrhoids, brown stool, guaiac negative Extremities: Left lower extremity: Tender palpation left lateral hip, previous incision. No deformities. Negative logroll. Neuro: no focal neurological deficits. Test Results: EKG paced rhythm rate of 82, no acute changes. White count 8.1. Hemoglobin 7. Creatinine 1.26. Potassium 3.2. Liver enzymes normal. INR 2.1. UA leukocytes 25. Troponin 0 0.051. Lactic acid 1.2. Chest x-ray chronic changes. Left hip x-ray per radiology possible loosening of prosthesis versus fracture Emergency Department Course and Treatment: Patient blood pressure was 75/50 my evaluation was given a liter of fluids workup initially with sepsis protocol. Labs stable except for hemoglobin 7. Rectal examination performed guaiac negative. Creatinine 1.26 up from previous. Likely prerenal she is given continue fluids. Chest x-ray notes chronic changes. UA only 25 leukocytes. Blood and urine cultures pending lactic acid 1.2. Troponin slightly elevated 0.051. No chest pains. She is fully anticoagulated on warfarin with INR 2.1. Give additional liter of fluids due to blood pressure. Spoke with hospitalist for admission for persistent hypotension. No antibiotics at this time. With her questionable fracture, did speak with covering orthopedist, Dr. Garcia, states patient to be admitted and her surgeon Dr. Otoole can be consulted to evaluate in the morning for plan of care. She is admitted to Dr. Bentley under hospitalist service. Treatment Plan: [] Disposition: Admission Impression: 1. Hypotension 2. Anemia 3. SALLY 4. Left hip pain with possible fracture This note was generated with [employer] dictation software. It may contain incorrect words, spelling, and punctuation that were not noted in review of the chart prior to signing ED Disposition - Plan for ED Patient: Disposition: Acute Care Hospital [facility] Chief Complaint: General Illness Diagnosis: Hypotension, Anemia, Acute kidney injury, Left hip pain possible fracture Referrals: Bijan Austin MD [Primary Care Provider] -
[2018-01-07 23:02] VITALS: BP 75/39; PULSE 85; RESP 14; O2SAT 97; O2SAT 98
[2018-01-07] MEDS: Acetaminophen 325 MG Tablet 650 MG PO (23:24)
[2018-01-07] MEDS: 0.9% Normal Saline 1,000 ML 999 ML IV (23:24)
[2018-01-07 23:34] LABS: Absolute Lymphocyte Count 0.91 X10^3/ul (0.83-4.51); Absolute Neutrophil Count 6.2 X10^3/uL (2.0-7.7); Basophil# 0.02 X10^3/uL; Basophil% 0.2 % (0-1); Eosinophil# 0.18 X10^3/uL; Eosinophils% 2.2 % (0-5); Hematocrit 22.9 % (37-47); Lymphocyte # 0.91 X10^3/ul (4.0); Lymphocyte % 11.3 % (19-41); Mean Corp Hgb Conc 30.6 g/gl (32-36); Mean Corpuscular Hgb 28.5 pg (27.0-32.0); Mean Corpuscular Volume 93.1 fL (81-99); Mean Platelet Vol. 11.2 fl (6.2-12.0); Monocyte# 0.74 X10^3/uL; Monocyte% 9.2 % (0-10); Neutrophil # 6.21 X10^3/uL (2.7-7.7); Neutrophil % 76.9 % (47-70); Platelet Count 152 K/mm3 (150-450); RBC Distribution Width CV 16.3 % (11.6-14.6); RBC Distribution Width SD 52.8 fl (35.1-43.9); Red Blood Count 2.46 M/mm3 (4.2-5.4); White Blood Count 8.1 K/mm3 (4.4-11.0)
[2018-01-07 23:36] LABS: Differential Indicated SCAN CRITERIA MET; POSITIVE COUNT NO; POSITIVE DIFFERENTIAL NO; POSITIVE MORPHOLOGY YES
[2018-01-07 23:39] LABS: Bacteria 0 SEEN /hpf (None Seen); Mucous, Urine 0 SEEN /hpf (<or=2+); Squamous Epithelial Cells - UA 0 SEEN /hpf (5-10)
[2018-01-07 23:41] LABS: Color, Urine Yellow (Yellow); Glucose, Dipstick Normal (Normal); Ketone-Dipstick 15 mg/dl (Negative); Leukocyte Esterase-Dipstick 25 /ul (Negative); Nitrite-Dipstick Negative (Negative); Occult Blood-Urine Negative /ul (Negative); Protein-Dipstick 30 mg/dl (Negative); Urine Clarity Sl. Cloudy (Clear); Urine Urobilinogen Normal (Normal)
[2018-01-07 23:42] LABS: Urine Bilirubin Dipstick 1 mg/dL (Negative)
[2018-01-07 23:44] LABS: International Normalized Ratio 2.1; Prothrombin Time (Protime)PT. 23.9 SECONDS (11.7-14.9)
[2018-01-07 23:45] LABS: Partial Thromboplast Time 40.1 Seconds (24.1-36.2)
[2018-01-07 23:48] LABS: Red Blood Cells-Urine 0-5 SEEN /hpf (0-5); White Blood Cells 0-5 SEEN /hpf (0-5)
[2018-01-07 23:52] LABS: Lactic Acid 1.2 mmol/L (0.4-2.0)
[2018-01-07 23:54] LABS: ALB/GLOB Ratio 0.6 RATIO (0.9-2.4); AST(SGOT) 19 U/L (15-37); Alanine Aminotransfer ALT/SGPT 17 U/L (13-56); Alkaline Phosphatase 55 U/L (45-117); Anion Gap 9 (5-15); BUN 34 mg/dL (7-18); Calcium,Total 8.4 mg/dL (8.5-10.1); Chloride 101 mmol/L (98-107); Creatinine, Serum 1.26 mg/dL (0.55-1.02); EST Glomerular Filtration Rate 43 mL/min (>60); Est Glom Filt Rate - Afr Amer 52 mL/min (>60); Estimated Creatinine Clearance 28.97 ml/min; Globulin 3.3 g/dL (2.2-4.2); Glucose 98 mg/dL (74-106); Potassium 3.2 mmol/L (3.5-5.1); Protein, Total 5.3 g/dL (6.4-8.2); Sodium Level 138 mmol/L (136-145)
[2018-01-08] VITALS (42 sets, daily range): BP systolic 70–119; BP diastolic 33–69; PULSE 72–98; RESP 16–36; TEMP 36–36.7; O2SAT 92–100; BMI 27.3; BMI 27.4
--- NOTE | 2018-01-08 01:01 | PCM.HP.STD ---
Problem List (1) Pulmonary fibrosis Status: Chronic (2) Coronary artery disease Status: Chronic Qualifiers: Coronary Disease-Associated Artery/Lesion type: unspecified vessel or lesion type [place] vs. transplanted heart: unspecified whether [place] or transplanted heart Associated angina: angina presence unspecified Qualified Code(s): I25.10 - Atherosclerotic heart disease of [place] coronary artery without angina pectoris (3) Hypothyroidism Status: Chronic Qualifiers: Hypothyroidism type: unspecified Qualified Code(s): E03.9 - Hypothyroidism, unspecified (4) TIA (transient ischemic attack) Status: Chronic (5) Obstructive sleep apnea Status: Suspected (6) Pulmonary hypertension Status: Chronic Comment: RVSP 66 mmHg (7) History of hip replacement Status: Resolved Qualifiers: Laterality: left Qualified Code(s): Z96.642 - Presence of left artificial hip joint (8) CHF (congestive heart failure) Status: Chronic Qualifiers: Heart failure type: combined systolic and diastolic Heart failure chronicity: chronic Qualified Code(s): I50.42 - Chronic combined systolic (congestive) and diastolic (congestive) heart failure (9) Cardiomyopathy Status: Chronic Qualifiers: (10) Paroxysmal atrial fibrillation Status: Chronic (11) Biventricular ICD (implantable cardioverter-defibrillator) in place Status: Chronic (12) Hyperthyroidism Status: Chronic (13) HTN (hypertension) Status: Chronic Qualifiers: Hypertension type: essential hypertension Qualified Code(s): I10 - Essential (primary) hypertension (14) Presence of aortocoronary bypass graft Status: Chronic (15) CVA (cerebral infarction) Status: Chronic Qualifiers: Cerebral infarction mechanism: unspecified mechanism Qualified Code(s): I63.9 - Cerebral infarction, unspecified (16) Restless leg syndrome Status: Chronic (17) History of aortic valve replacement with bioprosthetic valve Status: Chronic History of Present Illness Date of Admission: 01/08/18 Chief Complaint: Fall, L hip pain, Low BP. 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, CAD s/p CABG, Valvular Heart Disease s/p AVR, Chronic Systolic CHF/Ischemic Cardiomyopathy s/p AICD, HTN, HLD, Hyperthyroidism s/p subtotal thyroidectomy for goiter, Hx CVA/TIA, Dementia Unclear Type without behavioral disturbance history, PAF, history of 07/21/17 L THR with infectious complications and eventual revision, recent 12/26/17 admission w/ worsened dyspnea treated for HCPAO pneumonia complicated by underlying COPD and Pulmonary fibrosis progression discharged on 12/29/17 with continued regimen of cefepime and treatment of acute on chronic diastolic CHF exacerbation who now presents to the [facility] ED on 01/08/18 [facility] with onset of increased fatigue, lethargy, low BP and ? fever with fall while attempting to use the restroom w/ onset increased L hip pain. In the ED work-up included T 98.1, heart rate 85, BP initially 75/39--> 2/69, respiratory rate 14, 97% on 4 L nasal cannula, BC with WBC 8.1, hemoglobin 7 (Hgb 9 01/06/18), platelet 152 without market shift, PT 23.9, INR 2.1, PTT 40.1, CMP with potassium 3.2, BUN/creatinine 34/1.26 (Baseline Cr 0.5-0.7, 01/06/18 Cr 0.75), troponin 0 0.051, day unremarkable, plain film left hip secondary to recent fall with possible fracture of the proximal left femur adjacent to the prosthesis versus loosening the prosthesis, osteoporosis, chest x-ray with pacemaker leads evident, lungs expanded with chronic fibrotic changes possibly superimposed with interstitial infiltrates in the left lung with no demonstrated pleural abnormality, cardiomegaly. Past Medical History Past Medical History (Chronic Problems): Chronic Problems (Last Reviewed 11/20/17 @ 18:03 by Graciela Andrew, PHARMACY INTAKE COORDINATOR-C) Pulmonary fibrosis (Chronic) Coronary artery disease (Chronic) Hypothyroidism (Chronic) TIA (transient ischemic attack) (Chronic) Pulmonary hypertension (Chronic) RVSP 66 mmHg CHF (congestive heart failure) (Chronic) Cardiomyopathy (Chronic) Ischemic cardiomyopathy (Chronic) Paroxysmal atrial fibrillation (Chronic) 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) Hyperthyroidism (Chronic) Hypokalemia (Chronic) Atherosclerotic heart disease of [place] coronary artery without angina pectoris (Chronic) CABG x1 RANDLE-LAD x/Aortic Valve Replacement Left bundle-branch block (Chronic) Nonrheumatic aortic valve stenosis (Chronic) HTN (hypertension) (Chronic) Other chest pain (Chronic) Presence of aortocoronary bypass graft (Chronic) Dyspnea on exertion (Chronic) Fatigue (Chronic) Chronic pulmonary heart disease (Chronic) CVA (cerebral infarction) (Chronic) Hyperlipidemia (Chronic) Paroxysmal ventricular tachycardia (Chronic) HTN (hypertension) (Chronic) Hypothyroidism associated with surgical procedure (Chronic) had a subtotal thyroidectomy for goiter Hemorrhoids (Chronic) Restless leg syndrome (Chronic) TIA (transient ischemic attack) (Chronic) multiple History of aortic valve replacement with bioprosthetic valve (Chronic) Medical History: Medical History (Last Reviewed 11/20/17 @ 18:03 by Graciela Andrew NP-C) Ischemic cardiomyopathy (Chronic) I25.5 Paroxysmal atrial fibrillation (Chronic) I48.0 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) Z95.810 Hyperthyroidism (Chronic) E05.90 Hypokalemia (Chronic) E87.6 Atherosclerotic heart disease of [place] coronary artery without angina pectoris (Chronic) I25.10 CABG x1 RANDLE-LAD x/Aortic Valve Replacement Left bundle-branch block (Chronic) I44.7 Nonrheumatic aortic valve stenosis (Chronic) I35.0 HTN (hypertension) (Chronic) I10 Other chest pain (Chronic) R07.89 Dyspnea on exertion (Chronic) R06.09 Fatigue (Chronic) R53.83 Chronic pulmonary heart disease (Chronic) I27.9 CVA (cerebral infarction) (Chronic) I63.9 Hyperlipidemia (Chronic) E78.5 Paroxysmal ventricular tachycardia (Chronic) I47.2 HTN (hypertension) (Chronic) I10 Neck swelling (Acute) R22.1 left supraclavicular fossa and left neck Hypothyroidism associated with surgical procedure (Chronic) E89.0 had a subtotal thyroidectomy for goiter Hemorrhoids (Chronic) K64.9 Restless leg syndrome (Chronic) TIA (transient ischemic attack) (Chronic) multiple History of aortic valve replacement with bioprosthetic valve (Chronic) Z95.4 Allergies adhesive Allergy (Verified 01/07/18 22:19) Other Blisters etodolac Allergy (Verified 01/07/18 22:19) Unknown oxycodone HCl [From Percocet] Allergy (Verified 01/07/18 22:19) Hives phenobarbital Allergy (Verified 01/07/18 22:19) Unknown tolmetin sodium [From Tolectin] Allergy (Verified 01/07/18 22:19) Unknown venlafaxine Allergy (Verified 01/07/18 22:19) Unknown nitroglycerin Adverse Reaction (Verified 01/07/18 22:19) Other Headach nitropatch Allergy (Uncoded 11/20/17 09:14) unknown Home Medications: Ambulatory Orders Medication Instructions Recorded Magnesium Oxide [Mag-Ox 400] 400 mg PO DAILY@0800 09/17/15 Nitroglycerin [Nitrostat] 0.4 mg SUBLINGUAL Q5M PRN 09/20/15 gabapentin 100 mg capsule 100 mg PO BREAKFAST 05/05/17 amlodipine 5 mg tablet 5 mg PO DAILY 06/23/17 atorvastatin 40 mg tablet 20 mg PO QHS tab 06/23/17 Cholecalciferol (Vitamin D3) 1,000 unit PO DAILY@0800 07/06/17 [Vitamin D3] Aspirin E.C. [Ecotrin] 81 mg PO DAILY@0800 10/11/17 Furosemide [Lasix] 40 mg PO DAILY 10/11/17 Escitalopram Oxalate [Lexapro] 10 mg PO DAILY 12/26/17 Esomeprazole Magnesium 40 mg PO DAILY 12/26/17 Gabapentin [Neurontin] 100 mg PO LUNCH 12/26/17 Gabapentin [Neurontin] 300 mg PO QHS 12/26/17 Iron Polysaccharide Complex 150 mg PO QODAY@0800 12/26/17 [Ferrex 150] Menthol/Lanolin/Calamine/Znox 1 applic TOPICAL 0600,2200 12/26/17 [Calmoseptine Ointment] Ipratropium/Albuterol Sulfate 3 ml INHALATION Q4HWA.RT 12/29/17 [Duoneb] Acetaminophen [Tylenol] 1,000 mg PO Q8H PRN PRN tablet 01/06/18 Budesonide Aerosol [Pulmicort 0.5 mg INHALATION Q12H.RT #60 01/06/18 Respules] ampul.neb. Potassium Chloride [K-Dur] 20 meq PO DAILYCM tablet 01/06/18 Warfarin [Coumadin] 5 mg PO DAILY@1700 tablet 01/06/18 Azithromycin [Zithromax] 250 mg PO DAILY 01/08/18 Carvedilol 25 mg PO DAILY 01/08/18 Cefepime HCl [Maxipime] 2 gm IV Q12 01/08/18 Lisinopril [Zestril] 40 mg PO DAILY 08/31/18 Pantoprazole Sodium [Protonix] 40 mg PO DAILY 01/08/18 Polyethylene Glycol 3350 [Miralax] 17 gm PO DAILY 01/08/18 Tramadol HCl [Ultram] 50 mg PO Q6H PRN PRN 01/08/18 Surgical History: Surgical History (Last Reviewed 11/20/17 @ 18:03 by BETTIE Shah) History of hip replacement (Resolved) Z96.649 Presence of aortocoronary bypass graft (Chronic) Z95.1 H/O aortic valve replacement Z95.2 21 mm Magna Ease Pericardial Valve H/O right and left heart catheterization Onset Date: 09/24/15 Z98.890 History of appendectomy Z90.49 History of hysterectomy Z98.890, Z90.710 History of left heart catheterization (LHC) Z98.890 2000, 2006, 2009, 2013. History of total right knee replacement (TKR) Z96.651 Hx of CABG Z95.1 CABG x1 RANDLE-LAD x/Aortic Valve Replacement Hx of cholecystectomy Z98.890, Z90.49 aortaplasty with pericardial patch closure Onset Date: 10/26/15 at Surgical History: appendectomy, cholecystectomy, coronary bypass surgery, hysterectomy - She still has ovaries and fallopian tubes. The hysterectomy was done for dysfunctional uterine bleeding., pacemaker implantation, total hip arthroplasty, - - Bioprosthetic aortic valve replacement with CABG in October 2015 Psychiatric History: Anxiety, Depression PERSONNEL MONITOR History: No pertinent PERSONNEL MONITOR history Lives: [facility] Smoking Status: Never smoker Tobacco Use: Non-smoker Alcohol: None Drugs: None - *Family History Maternal Family History: Family History (Last Reviewed 11/20/17 @ 18:03 by BETTIE Shah) Father Myocardial infarction, Onset Age: 45 Hypertension Heart disease Mother Myocardial infarction, Onset Age: 64 CAD (coronary artery disease) Hypertension Brother Myocardial infarction, Onset Age: 59 Heart disease CAD (coronary artery disease) CVA (cerebral vascular accident) Hypertension Sister CAD (coronary artery disease) Hypertension Daughter Diabetes HLD (hyperlipidemia) Son Hypertension HLD (hyperlipidemia) CAD (coronary artery disease) History Items: Heart Disease, Hypertension Paternal Family History: Family History (Last Reviewed 11/20/17 @ 18:03 by BETTIE Shah) Father Myocardial infarction, Onset Age: 45 Hypertension Heart disease Mother Myocardial infarction, Onset Age: 64 CAD (coronary artery disease) Hypertension Brother Myocardial infarction, Onset Age: 59 Heart disease CAD (coronary artery disease) CVA (cerebral vascular accident) Hypertension Sister CAD (coronary artery disease) Hypertension Daughter Diabetes HLD (hyperlipidemia) Son Hypertension HLD (hyperlipidemia) CAD (coronary artery disease) History Items: High Cholesterol, Heart Disease Review of Systems Constitutional: Reports: Malaise, Weakness, Fatigue. Denies: Chills, Fever, Weight Change HEENT: Denies: Head Aches, Sinus Congestion, Sinus Drainage Cardiovascular: Denies: Chest Pain, Palpitations Respiratory: Reports: Shortness of breath upon exertion. Denies: Cough, Shortness of Breath, Shortness of breath at rest, Sputum production Gastrointestinal: Denies: Abdominal Pain, Nausea, Vomiting Genitourinary: Denies: Dysuria Musculoskeletal: Reports: Joint stiffness, Joint swelling, Joint Tenderness, Leg Pain. Denies: Joint Pain Skin: Denies: Rash, Wounds Neurological: Denies: Numbness, Tingling, Focal weakness Psychiatric: Denies: Anxiety, Depression, Homicidal Ideations, Suicidal Ideations Hematologic/ Lymphatic: Reports: Anemia, Easy Bruising, Easy Bleeding VTE Information - Inpt Only VTE Present on Admission: No VTE Mechan Device Prophylaxis: SCD's VTE Pharm Prophylaxis ordered?: No Reason prophylaxis not ordered:: Treatment Not Indicated Patient Problems: Active and Suspected Problems (Last Reviewed 11/20/17 @ 18:03 by Graciela Andrew NP-C) Shortness of breath (Acute) Healthcare associated bacterial pneumonia (Acute) Subjective: Laying flat in the ED bed, notes ongoing L hip pain. Objective: Physical Examination: General: awake, alert, oriented to self, place, recent events, hard of hearing, cooperative, laying in the ED bed, notes ongoing L hip pain. Skin: normal color, turgor, no icterus, cyanosis. HEENT: AT/NC, EOMI, PERRLA, dry MM, no carotid bruits or JVD noted. Lungs: Diminished BS BL, > bases, moderate effort, no rales, ronchi or wheezing. Heart: Regular rate and rhythm (paced); no gallop, rub audible, SM. Abdomen: soft, NTTP, ND, normal BS, no HSM. Extremities: no cyanosis, clubbing, s/p fall w/ severe L hip pain, distal pulses intact. Neurological: patient awake, alert, oriented as noted; cognitive function baseline intact, dementia baseline but similar to prior evaluations; pupils equally reactive to light and accomodation; cranial nerves II-XII grossly normal, moving all extremities except limited LLE s/p recent fall w/ acute L hip pain, strength accordingly severely globally decreased. Psychiatric: affect appears normal, no acute evidence of depressive or anxiety feelings. - Physical Exam Vital Signs Temp Pulse Resp BP Pulse Ox 98.1 F 88 23 H 92/69 98 01/08/18 00:22 01/08/18 00:22 01/08/18 00:22 01/08/18 00:22 01/08/18 00:22 Oxygen Flow Rate (L/min) 4 Oxygen Delivery Method Nasal Cannula Weight: 156 lb 8.451 oz Body Mass Index (BMI) 27.7 Finger Stick Blood Glucose 156 Microbiology Past 72 Hours 01/08/18 00:15 Stool Occult Blood (BETTY) - Final Stool Laboratory Tests Past 24 Hrs 01/07/18 01/07/18 01/07/18 23:10 23:10 23:10 WBC 8.1 RBC 2.46 L Hgb 7.0 L Hct 22.9 L MCV 93.1 MCH 28.5 MCHC 30.6 L RDW 16.3 H RDW Differential 52.8 H Plt Count 152 MPV 11.2 Immature Gran % (Auto) 0.200 Neut % (Auto) 76.9 H Lymph % (Auto) 11.3 L [place] % (Auto) 9.2 Eos % (Auto) 2.2 Baso % (Auto) 0.2 Absolute Neuts (auto) 6.2 Absolute Lymphs (auto) 0.91 Total Counted Not Reportable PT 23.9 H INR 2.1 APTT 40.1 H Sodium 138 Potassium 3.2 L Chloride 101 Carbon Dioxide 28.0 Anion Gap 9 BUN 34 H Creatinine 1.26 H Estim Creat Clear Calc 28.97 Est GFR (MDRD) Af Amer 52 L Est GFR (MDRD) Non-Af 43 L BUN/Creatinine Ratio 27.0 H Glucose 98 Lactic Acid Calcium 8.4 L Total Bilirubin 0.40 AST 19 ALT 17 Alkaline Phosphatase 55 Troponin I Total Protein 5.3 L Albumin 2.0 L Globulin 3.3 Albumin/Globulin Ratio 0.6 L Urine Color Urine Clarity Urine pH Ur Specific [place] Urine Protein Urine Glucose (UA) Urine Ketones Urine Occult Blood Urine Nitrite Urine Bilirubin Urine Urobilinogen Ur Leukocyte Esterase Urine RBC Urine WBC Ur Squamous Epith Cells Urine Bacteria Urine Mucus 01/07/18 01/07/18 01/07/18 23:10 23:10 23:30 WBC RBC Hgb Hct MCV MCH MCHC RDW RDW Differential Plt Count MPV Immature Gran % (Auto) Neut % (Auto) Lymph % (Auto) [place] % (Auto) Eos % (Auto) Baso % (Auto) Absolute Neuts (auto) Absolute Lymphs (auto) Total Counted PT INR APTT Sodium Potassium Chloride Carbon Dioxide Anion Gap BUN Creatinine Estim Creat Clear Calc Est GFR (MDRD) Af Amer Est GFR (MDRD) Non-Af BUN/Creatinine Ratio Glucose Lactic Acid 1.2 Calcium Total Bilirubin AST ALT Alkaline Phosphatase Troponin I 0.051 H Total Protein Albumin Globulin Albumin/Globulin Ratio Urine Color Yellow Urine Clarity Sl. Cloudy Urine pH 5.0 Ur Specific [place] 1.020 Urine Protein 30 H Urine Glucose (UA) Normal Urine Ketones 15 H Urine Occult Blood Negative Urine Nitrite Negative Urine Bilirubin 1 H Urine Urobilinogen Normal Ur Leukocyte Esterase 25 H Urine RBC 0-5 SEEN Urine WBC 0-5 SEEN Ur Squamous Epith Cells 0 SEEN Urine Bacteria 0 SEEN Urine Mucus 0 SEEN Assessment/Plan All Active Problems (Last Reviewed 11/20/17 @ 18:03 by Graciela Andrew, PHARMACY INTAKE COORDINATOR-C) HCAP (healthcare-associated pneumonia) (Acute) Shortness of breath (Acute) Healthcare associated bacterial pneumonia (Acute) History of hip replacement (Resolved) Surgical site infection (Resolved) multilobar HCAP (Acute) Acute respiratory failure with hypoxia (Acute) Neck swelling (Acute) Accelerated hypertension (Resolved) Chest pain (Resolved) DVT of lower extremity (deep venous thrombosis) (Resolved) Nephrolithiasis (Resolved) 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, CAD s/p CABG, Valvular Heart Disease s/p AVR, Chronic Systolic CHF/Ischemic Cardiomyopathy s/p AICD, HTN, HLD, Hyperthyroidism s/p subtotal thyroidectomy for goiter, Hx CVA/TIA, Dementia Unclear Type without behavioral disturbance history, PAF, history of 07/21/17 L THR with infectious complications and eventual revision, recent 12/26/17 admission w/ worsened dyspnea treated for HCAP pneumonia complicated by underlying COPD and Pulmonary fibrosis progression discharged on 12/29/17 with continued regimen of cefepime and treatment of acute on chronic diastolic CHF exacerbation who now presents to the [facility] ED on 01/08/18 from [facility] with onset of increased fatigue, lethargy, low BP and fever with fall while attempting to use the restroom w/ onset increased L hip pain. (1) General debility, L hip pain s/p mechanical fall w/ ? proximal left femur fracture: Plain film left hip secondary to recent fall with possible fracture of the proximal left femur adjacent to the prosthesis versus loosening the prosthesis, osteoporosis. Orthopedic surgery consulted from ED. Recent interventions to this extremity over the last several months. ED read feels likely not fracture but patient with worsened more severe L hip pain and unable to walk. Will admit to MS, continue gentle IVFs, stone placement, monitor I/Os, frequent positioning, fall precautions pending Dr. Parr follow-up evaluation per Dr. Garcia report. Possibly will need further imaging, but per Dr. Garcia recommendation defer to Orthopedic surgery (Dr. Parr) following his evaluation. Pain, anti-emetic regimen. PT/OT following operative intervention. CM consulted for discharge planning. (2) Acute kidney injury: Secondary to suspected decreased intake, dehydration. Admission BUN/Cr 34/1.26, prior baseline creatinine noted to be 0.5-0.7. Will hydrate, hold nephrotoxic medications and repeat chemistry in AM. If no improvement would plan FeNa and renal US assessment. (3) Hypotension, Suspected Hypovolemic, Dehydration: Will continue to gently hydrate, monitor respiratory status given history of CHF with concern of overload. (4) Acute on Chronic Normocytic Anemia: Admission Hgb 7, previously 9 day prior, baseline 8-9 range, guiac negative, will hydrate as noted, repeat CBC in AM. Holding coumadin, admission INR 2.1. (5) Chronic COPD/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: Will maintain on home oxygen supplementation, continue ATC duonebs, PRN albuterol, HOB, IS parameters. (6) CAD: s/p CABG, maintain on asa, statin, BB. (7) Valvular Heart Disease: s/p AVR, bioprosthetic. (8) Chronic Systolic and ? Diastolic CHF/Ischemic Cardiomyopathy: CXR appears w/ chronic changes, s/p AICD/pacemaker, maintain on asa, statin, BB, temporarily holding lasix and ACEI. (9) Hypertension: BP low as noted, holding regimen. (10) Hyperlipidemia: Continue home statin regimen. (11) Hyperthyroidism: s/p subtotal thyroidectomy for goiter. (12) Hx CVA/TIA: Maintain on asa, statin, holding BP regimen. (13) Dementia Unclear Type without behavioral disturbance history: Frequent orientation, fall precautions. (14) PAF: s/p pacemaker, hold BP regimen, currently anticoagulated with hold as noted, therapeutic INR, will trend, guiac negative but Hgb decreased 9-->7, unclear if associated w/ her dehydration, will hydrate and repeat AM CBC. (15) DVT Prophylaxis: SCDs, INR therapeutic as noted on coumadin which will be held given #1, pending Orthopedic evaluation. (16) CODE status: Patient confirmed living will and HCPOA in place ([facility]). Discussed CODE status at length including difference between FULL code, DNR-CCA and DNR-CC status. Following discussions about the differences in these status, confirmed DNR-CCA, no intubation status in addition to no aggressive interventions including pressor therapy. Advanced Care Planning Face to Face Time: 18 minutes. Code Visit Inpatient E&M: 00954 Init Hosp L3 Procedures: 52262 Advncd Care Plan 30 Min
--- NOTE | 2018-01-08 01:05 | HP.PCM_ITS ---
Problem List (1) Pulmonary fibrosis Status: Chronic (2) Coronary artery disease Status: Chronic Qualifiers: Coronary Disease-Associated Artery/Lesion type: unspecified vessel or lesion type [place] vs. transplanted heart: unspecified whether [place] or transplanted heart Associated angina: angina presence unspecified Qualified Code(s): I25.10 - Atherosclerotic heart disease of absent[place] coronary artery without angina pectoris (3) Hypothyroidism Status: Chronic Qualifiers: Hypothyroidism type: unspecified Qualified Code(s): E03.9 - Hypothyroidism , unspecified (4) TIA (transient ischemic attack) Status: Chronic (5) Obstructive sleep apnea Status: Suspected (6) Pulmonary hypertension Status: Chronic Comment: RVSP 66 mmHg (7) History of hip replacement Status: Resolved Qualifiers: Laterality: left Qualified Code(s): Z96.642 - Presence of left artificial hip joint (8) CHF (congestive heart failure) Status: Chronic Qualifiers: Heart failure type: combined systolic and diastolic Heart failure chronicity: chronic Qualified Code(s): I50.42 - Chronic combined systolic ( congestive) and diastolic (congestive) heart failure (9) Cardiomyopathy Status: Chronic Qualifiers: (10) Paroxysmal atrial fibrillation Status: Chronic (11) Biventricular ICD (implantable cardioverter-defibrillator) in place Status: Chronic (12) Hyperthyroidism Status: Chronic (13) HTN (hypertension) Status: Chronic Qualifiers: Hypertension type: essential hypertension Qualified Code(s): I10 - Essential (primary) hypertension (14) Presence of aortocoronary bypass graft Status: Chronic (15) CVA (cerebral infarction) Status: Chronic Qualifiers: Cerebral infarction mechanism: unspecified mechanism Qualified Code(s): I63.9 - Cerebral infarction, unspecified (16) Restless leg syndrome Status: Chronic (17) History of aortic valve replacement with bioprosthetic valve Status: Chronic History of Present Illness Date of Admission: 01/08/18 Chief Complaint: Fall, L hip pain, Low BP. 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, CAD s/p CABG, Valvular Heart Disease s/p AVR, Chronic Systolic CHF/Ischemic Cardiomyopathy s/p AICD, HTN, HLD, Hyperthyroidism s/p subtotal thyroidectomy for goiter, Hx CVA/TIA, Dementia Unclear Type without behavioral disturbance history, PAF, history of 07/21/17 L THR with infectious complications and eventual revision, recent 12/26/17 admission w/ worsened dyspnea treated for HCPAO pneumonia complicated by underlying COPD and Pulmonary fibrosis progression discharged on 12/29/17 with continued regimen of cefepime and treatment of acute on chronic diastolic CHF exacerbation who now presents to the [facility] ED on 01/08/18 from [facility] with onset of increased fatigue, lethargy, low BP and ? fever with fall while attempting to use the restroom w/ onset increased L hip pain. In the ED work-up included T 98.1, heart rate 85, BP initially 75/39--> 2/69, respiratory rate 14, 97% on 4 L nasal cannula, BC with WBC 8.1, hemoglobin 7 (Hgb 9 01/06/18), platelet 152 without market shift, PT 23.9, INR 2.1, PTT 40.1, CMP with potassium 3.2, BUN/ creatinine 34/1.26 (Baseline Cr 0.5-0.7, 01/06/18 Cr 0.75), troponin 0 0.051, day unremarkable, plain film left hip secondary to recent fall with possible fracture of the proximal left femur adjacent to the prosthesis versus loosening the prosthesis, osteoporosis, chest x-ray with pacemaker leads evident, lungs expanded with chronic fibrotic changes possibly superimposed with interstitial infiltrates in the left lung with no demonstrated pleural abnormality, cardiomegaly. Past Medical History Past Medical History (Chronic Problems): Chronic Problems (Last Reviewed 11/20/17 @ 18:03 by Graciela Andrew, LAURENCE-C) Pulmonary fibrosis (Chronic) Coronary artery disease (Chronic) Hypothyroidism (Chronic) TIA (transient ischemic attack) (Chronic) Pulmonary hypertension (Chronic) RVSP 66 mmHg CHF (congestive heart failure) (Chronic) Cardiomyopathy (Chronic) Ischemic cardiomyopathy (Chronic) Paroxysmal atrial fibrillation (Chronic) 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) Hyperthyroidism (Chronic) Hypokalemia (Chronic) Atherosclerotic heart disease of absent[place] coronary artery without angina pectoris (Chronic) CABG x1 RANDLE-LAD x/Aortic Valve Replacement Left bundle-branch block (Chronic) Nonrheumatic aortic valve stenosis (Chronic) HTN (hypertension) (Chronic) Other chest pain (Chronic) Presence of aortocoronary bypass graft (Chronic) Dyspnea on exertion (Chronic) Fatigue (Chronic) Chronic pulmonary heart disease (Chronic) CVA (cerebral infarction) (Chronic) Hyperlipidemia (Chronic) Paroxysmal ventricular tachycardia (Chronic) HTN (hypertension) (Chronic) Hypothyroidism associated with surgical procedure (Chronic) had a subtotal thyroidectomy for goiter Hemorrhoids (Chronic) Restless leg syndrome (Chronic) TIA (transient ischemic attack) (Chronic) multiple History of aortic valve replacement with bioprosthetic valve (Chronic) Medical History: Medical History (Last Reviewed 11/20/17 @ 18:03 by Graciela Andrew NP-C) Ischemic cardiomyopathy (Chronic) I25.5 Paroxysmal atrial fibrillation (Chronic) I48.0 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) Z95.810 Hyperthyroidism (Chronic) E05.90 Hypokalemia (Chronic) E87.6 Atherosclerotic heart disease of [place] coronary artery without angina pectoris (Chronic) I25.10 CABG x1 RANDLE-LAD x/Aortic Valve Replacement Left bundle-branch block (Chronic) I44.7 Nonrheumatic aortic valve stenosis (Chronic) I35.0 HTN (hypertension) (Chronic) I10 Other chest pain (Chronic) R07.89 Dyspnea on exertion (Chronic) R06.09 Fatigue (Chronic) R53.83 Chronic pulmonary heart disease (Chronic) I27.9 CVA (cerebral infarction) (Chronic) I63.9 Hyperlipidemia (Chronic) E78.5 Paroxysmal ventricular tachycardia (Chronic) I47.2 HTN (hypertension) (Chronic) I10 Neck swelling (Acute) R22.1 left supraclavicular fossa and left neck Hypothyroidism associated with surgical procedure (Chronic) E89.0 had a subtotal thyroidectomy for goiter Hemorrhoids (Chronic) K64.9 Restless leg syndrome (Chronic) TIA (transient ischemic attack) (Chronic) multiple History of aortic valve replacement with bioprosthetic valve (Chronic) Z95.4 Allergies adhesive Allergy (Verified 01/07/18 22:19) Other Blisters etodolac Allergy (Verified 01/07/18 22:19) Unknown oxycodone HCl [From Percocet] Allergy (Verified 01/07/18 22:19) Hives phenobarbital Allergy (Verified 01/07/18 22:19) Unknown tolmetin sodium [From Tolectin] Allergy (Verified 01/07/18 22:19) Unknown venlafaxine Allergy (Verified 01/07/18 22:19) Unknown nitroglycerin Adverse Reaction (Verified 01/07/18 22:19) Other Headach nitropatch Allergy (Uncoded 11/20/17 09:14) unknown Home Medications: Ambulatory Orders Medication Instructions Recorded Magnesium Oxide [Mag-Ox 400] 400 mg PO DAILY@0800 09/17/15 Nitroglycerin [Nitrostat] 0.4 mg SUBLINGUAL Q5M PRN 09/20/15 gabapentin 100 mg capsule 100 mg PO BREAKFAST 05/05/17 amlodipine 5 mg tablet 5 mg PO DAILY 06/23/17 atorvastatin 40 mg tablet 20 mg PO QHS tab 06/23/17 Cholecalciferol (Vitamin D3) 1,000 unit PO DAILY@0800 07/06/17 [Vitamin D3] Aspirin E.C. [Ecotrin] 81 mg PO DAILY@0800 10/11/17 Furosemide [Lasix] 40 mg PO DAILY 10/11/17 Escitalopram Oxalate [Lexapro] 10 mg PO DAILY 12/26/17 Esomeprazole Magnesium 40 mg PO DAILY 12/26/17 Gabapentin [Neurontin] 100 mg PO LUNCH 12/26/17 Gabapentin [Neurontin] 300 mg PO QHS 12/26/17 Iron Polysaccharide Complex 150 mg PO QODAY@0800 12/26/17 [Ferrex 150] Menthol/Lanolin/Calamine/Znox 1 applic TOPICAL 0600,2200 12/26/17 [Calmoseptine Ointment] Ipratropium/Albuterol Sulfate 3 ml INHALATION Q4HWA.RT 12/29/17 [Duoneb] Acetaminophen [Tylenol] 1,000 mg PO Q8H PRN PRN tablet 01/06/18 Budesonide Aerosol [Pulmicort 0.5 mg INHALATION Q12H.RT #60 01/06/18 Respules] ampul.neb. Potassium Chloride [K-Dur] 20 meq PO DAILYCM tablet 01/06/18 Warfarin [Coumadin] 5 mg PO DAILY@1700 tablet 01/06/18 Azithromycin [Zithromax] 250 mg PO DAILY 01/08/18 Carvedilol 25 mg PO DAILY 01/08/18 Cefepime HCl [Maxipime] 2 gm IV Q12 01/08/18 Lisinopril [Zestril] 40 mg PO DAILY 08/31/18 Pantoprazole Sodium [Protonix] 40 mg PO DAILY 01/08/18 Polyethylene Glycol 3350 [Miralax] 17 gm PO DAILY 01/08/18 Tramadol HCl [Ultram] 50 mg PO Q6H PRN PRN 01/08/18 Surgical History: Surgical History (Last Reviewed 11/20/17 @ 18:03 by BETTIE Shah) History of hip replacement (Resolved) Z96.649 Presence of aortocoronary bypass graft (Chronic) Z95.1 H/O aortic valve replacement Z95.2 21 mm Magna Ease Pericardial Valve H/O right and left heart catheterization Onset Date: 09/24/15 Z98.890 History of appendectomy Z90.49 History of hysterectomy Z98.890, Z90.710 History of left heart catheterization (LHC) Z98.890 2000, 2006, 2009, 2013. History of total right knee replacement (TKR) Z96.651 Hx of CABG Z95.1 CABG x1 RANDLE-LAD x/Aortic Valve Replacement Hx of cholecystectomy Z98.890, Z90.49 aortaplasty with pericardial patch closure Onset Date: 10/26/15 at Surgical History: appendectomy, cholecystectomy, coronary bypass surgery, hysterectomy - She still has ovaries and fallopian tubes. The hysterectomy was done for dysfunctional uterine bleeding., pacemaker implantation, total hip arthroplasty, - - Bioprosthetic aortic valve replacement with CABG in October 2015 Psychiatric History: Anxiety, Depression STORE MGR History: No pertinent STORE MGR history Lives: [facility] Smoking Status: Never smoker Tobacco Use: Non-smoker Alcohol: None Drugs: None - *Family History Maternal Family History: Family History (Last Reviewed 11/20/17 @ 18:03 by BETTIE Shah) Father Myocardial infarction, Onset Age: 45 Hypertension Heart disease Mother Myocardial infarction, Onset Age: 64 CAD (coronary artery disease) Hypertension Brother Myocardial infarction, Onset Age: 59 Heart disease CAD (coronary artery disease) CVA (cerebral vascular accident) Hypertension Sister CAD (coronary artery disease) Hypertension Daughter Diabetes HLD (hyperlipidemia) Son Hypertension HLD (hyperlipidemia) CAD (coronary artery disease) History Items: Heart Disease, Hypertension Paternal Family History: Family History (Last Reviewed 11/20/17 @ 18:03 by BETTIE Shah) Father Myocardial infarction, Onset Age: 45 Hypertension Heart disease Mother Myocardial infarction, Onset Age: 64 CAD (coronary artery disease) Hypertension Brother Myocardial infarction, Onset Age: 59 Heart disease CAD (coronary artery disease) CVA (cerebral vascular accident) Hypertension Sister CAD (coronary artery disease) Hypertension Daughter Diabetes HLD (hyperlipidemia) Son Hypertension HLD (hyperlipidemia) CAD (coronary artery disease) History Items: High Cholesterol, Heart Disease Review of Systems Constitutional: Reports: Malaise, Weakness, Fatigue. Denies: Chills, Fever, Weight Change HEENT: Denies: Head Aches, Sinus Congestion, Sinus Drainage Cardiovascular: Denies: Chest Pain, Palpitations Respiratory: Reports: Shortness of breath upon exertion. Denies: Cough, Shortness of Breath, Shortness of breath at rest, Sputum production Gastrointestinal: Denies: Abdominal Pain, Nausea, Vomiting Genitourinary: Denies: Dysuria Musculoskeletal: Reports: Joint stiffness, Joint swelling, Joint Tenderness, Leg Pain. Denies: Joint Pain Skin: Denies: Rash, Wounds Neurological: Denies: Numbness, Tingling, Focal weakness Psychiatric: Denies: Anxiety, Depression, Homicidal Ideations, Suicidal Ideations Hematologic/ Lymphatic: Reports: Anemia, Easy Bruising, Easy Bleeding VTE Information - Inpt Only VTE Present on Admission: No VTE Mechan Device Prophylaxis: SCD's VTE Pharm Prophylaxis ordered?: No Reason prophylaxis not ordered:: Treatment Not Indicated Patient Problems: Active and Suspected Problems (Last Reviewed 11/20/17 @ 18:03 by Graciela Andrew NP-C) Shortness of breath (Acute) Healthcare associated bacterial pneumonia (Acute) Subjective: Laying flat in the ED bed, notes ongoing L hip pain. Objective: Physical Examination: General: awake, alert, oriented to self, place, recent events, hard of hearing, cooperative, laying in the ED bed, notes ongoing L hip pain. Skin: normal color, turgor, no icterus, cyanosis. HEENT: AT/NC, EOMI, PERRLA, dry MM, no carotid bruits or JVD noted. Lungs: Diminished BS BL, > bases, moderate effort, no rales, ronchi or wheezing. Heart: Regular rate and rhythm (paced); no gallop, rub audible, SM. Abdomen: soft, NTTP, ND, normal BS, no HSM. Extremities: no cyanosis, clubbing, s/p fall w/ severe L hip pain, distal pulses intact. Neurological: patient awake, alert, oriented as noted; cognitive function baseline intact, dementia baseline but similar to prior evaluations; pupils equally reactive to light and accomodation; cranial nerves II-XII grossly normal , moving all extremities except limited LLE s/p recent fall w/ acute L hip pain , strength accordingly severely globally decreased. Psychiatric: affect appears normal, no acute evidence of depressive or anxiety feelings. - Physical Exam Vital Signs Temp Pulse Resp BP Pulse Ox 98.1 F 88 23 H 92/69 98 01/08/18 00:22 01/08/18 00:22 01/08/18 00:22 01/08/18 00:22 01/08/18 00:22 Oxygen Flow Rate (L/min) 4 Oxygen Delivery Method Nasal Cannula Weight: 156 lb 8.451 oz Body Mass Index (BMI) 27.7 Finger Stick Blood Glucose 156 Microbiology Past 72 Hours 01/08/18 00:15 Stool Occult Blood (BETTY) - Final Stool Laboratory Tests Past 24 Hrs 01/07/18 01/07/18 01/07/18 23:10 23:10 23:10 WBC 8.1 RBC 2.46 L Hgb 7.0 L Hct 22.9 L MCV 93.1 MCH 28.5 MCHC 30.6 L RDW 16.3 H RDW Differential 52.8 H Plt Count 152 MPV 11.2 Immature Gran % (Auto) 0.200 Neut % (Auto) 76.9 H Lymph % (Auto) 11.3 L Payne % (Auto) 9.2 Eos % (Auto) 2.2 Baso % (Auto) 0.2 Absolute Neuts (auto) 6.2 Absolute Lymphs (auto) 0.91 Total Counted Not Reportable PT 23.9 H INR 2.1 APTT 40.1 H Sodium 138 Potassium 3.2 L Chloride 101 Carbon Dioxide 28.0 Anion Gap 9 BUN 34 H Creatinine 1.26 H Estim Creat Clear Calc 28.97 Est GFR (MDRD) Af Amer 52 L Est GFR (MDRD) Non-Af 43 L BUN/Creatinine Ratio 27.0 H Glucose 98 Lactic Acid Calcium 8.4 L Total Bilirubin 0.40 AST 19 ALT 17 Alkaline Phosphatase 55 Troponin I Total Protein 5.3 L Albumin 2.0 L Globulin 3.3 Albumin/Globulin Ratio 0.6 L Urine Color Urine Clarity Urine pH Ur Specific [place] Urine Protein Urine Glucose (UA) Urine Ketones Urine Occult Blood Urine Nitrite Urine Bilirubin Urine Urobilinogen Ur Leukocyte Esterase Urine RBC Urine WBC Ur Squamous Epith Cells Urine Bacteria Urine Mucus 01/07/18 01/07/18 01/07/18 23:10 23:10 23:30 WBC RBC Hgb Hct MCV MCH MCHC RDW RDW Differential Plt Count MPV Immature Gran % (Auto) Neut % (Auto) Lymph % (Auto) Payne % (Auto) Eos % (Auto) Baso % (Auto) Absolute Neuts (auto) Absolute Lymphs (auto) Total Counted PT INR APTT Sodium Potassium Chloride Carbon Dioxide Anion Gap BUN Creatinine Estim Creat Clear Calc Est GFR (MDRD) Af Amer Est GFR (MDRD) Non-Af BUN/Creatinine Ratio Glucose Lactic Acid 1.2 Calcium Total Bilirubin AST ALT Alkaline Phosphatase Troponin I 0.051 H Total Protein Albumin Globulin Albumin/Globulin Ratio Urine Color Yellow Urine Clarity Sl. Cloudy Urine pH 5.0 Ur Specific [place] 1.020 Urine Protein 30 H Urine Glucose (UA) Normal Urine Ketones 15 H Urine Occult Blood Negative Urine Nitrite Negative Urine Bilirubin 1 H Urine Urobilinogen Normal Ur Leukocyte Esterase 25 H Urine RBC 0-5 SEEN Urine WBC 0-5 SEEN Ur Squamous Epith Cells 0 SEEN Urine Bacteria 0 SEEN Urine Mucus 0 SEEN Assessment/Plan All Active Problems (Last Reviewed 11/20/17 @ 18:03 by Graciela Andrew, CONSUMER SCIENCE TEACHER-C) HCAP (healthcare-associated pneumonia) (Acute) Shortness of breath (Acute) Healthcare associated bacterial pneumonia (Acute) History of hip replacement (Resolved) Surgical site infection (Resolved) multilobar HCAP (Acute) Acute respiratory failure with hypoxia (Acute) Neck swelling (Acute) Accelerated hypertension (Resolved) Chest pain (Resolved) DVT of lower extremity (deep venous thrombosis) (Resolved) Nephrolithiasis (Resolved) 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, CAD s/p CABG, Valvular Heart Disease s/p AVR, Chronic Systolic CHF/Ischemic Cardiomyopathy s/p AICD, HTN, HLD, Hyperthyroidism s/p subtotal thyroidectomy for goiter, Hx CVA/TIA, Dementia Unclear Type without behavioral disturbance history, PAF, history of 07/21/17 L THR with infectious complications and eventual revision, recent 12/26/17 admission w/ worsened dyspnea treated for HCAP pneumonia complicated by underlying COPD and Pulmonary fibrosis progression discharged on 12/29/17 with continued regimen of cefepime and treatment of acute on chronic diastolic CHF exacerbation who now presents to the [facility] ED on 01/08/18 from [facility] with onset of increased fatigue, lethargy, low BP and fever with fall while attempting to use the restroom w/ onset increased L hip pain. (1) General debility, L hip pain s/p mechanical fall w/ ? proximal left femur fracture: Plain film left hip secondary to recent fall with possible fracture of the proximal left femur adjacent to the prosthesis versus loosening the prosthesis, osteoporosis. Orthopedic surgery consulted from ED. Recent interventions to this extremity over the last several months. ED read feels likely not fracture but patient with worsened more severe L hip pain and unable to walk. Will admit to MS, continue gentle IVFs, stone placement, monitor I/Os, frequent positioning, fall precautions pending Dr. Parr follow-up evaluation per Dr. Garcia report. Possibly will need further imaging, but per Dr. Garcia recommendation defer to Orthopedic surgery (Dr. Parr) following his evaluation. Pain, anti-emetic regimen. PT/OT following operative intervention. CM consulted for discharge planning. (2) Acute kidney injury: Secondary to suspected decreased intake, dehydration. Admission BUN/Cr 34/1.26, prior baseline creatinine noted to be 0.5-0.7. Will hydrate, hold nephrotoxic medications and repeat chemistry in AM. If no improvement would plan FeNa and renal US assessment. (3) Hypotension, Suspected Hypovolemic, Dehydration: Will continue to gently hydrate, monitor respiratory status given history of CHF with concern of overload. (4) Acute on Chronic Normocytic Anemia: Admission Hgb 7, previously 9 day prior , baseline 8-9 range, guiac negative, will hydrate as noted, repeat CBC in AM. Holding coumadin, admission INR 2.1. (5) Chronic COPD/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: Will maintain on home oxygen supplementation, continue ATC duonebs, PRN albuterol, HOB, IS parameters. (6) CAD: s/p CABG, maintain on asa, statin, BB. (7) Valvular Heart Disease: s/p AVR, bioprosthetic. (8) Chronic Systolic and ? Diastolic CHF/Ischemic Cardiomyopathy: CXR appears w / chronic changes, s/p AICD/pacemaker, maintain on asa, statin, BB, temporarily holding lasix and ACEI. (9) Hypertension: BP low as noted, holding regimen. (10) Hyperlipidemia: Continue home statin regimen. (11) Hyperthyroidism: s/p subtotal thyroidectomy for goiter. (12) Hx CVA/TIA: Maintain on asa, statin, holding BP regimen. (13) Dementia Unclear Type without behavioral disturbance history: Frequent orientation, fall precautions. (14) PAF: s/p pacemaker, hold BP regimen, currently anticoagulated with hold as noted, therapeutic INR, will trend, guiac negative but Hgb decreased 9-->7, unclear if associated w/ her dehydration, will hydrate and repeat AM CBC. (15) DVT Prophylaxis: SCDs, INR therapeutic as noted on coumadin which will be held given #1, pending Orthopedic evaluation. (16) CODE status: Patient confirmed living will and HCPOA in place (Bharati Pierre). Discussed CODE status at length including difference between FULL code, DNR-CCA and DNR-CC status. Following discussions about the differences in these status, confirmed DNR-CCA, no intubation status in addition to no aggressive interventions including pressor therapy. Advanced Care Planning Face to Face Time: 18 minutes. Code Visit Inpatient E&M: 77549 Init Hosp L3 Procedures: 48870 Advncd Care Plan 30 Min
[2018-01-08] MEDS: 0.9% Normal Saline 1,000 ML 999 ML IV ×2 (01:09→06:58)
--- NOTE | 2018-01-08 01:49 | NURSING ---
Called ED gas fitter apprentice, Erica at this time to confirm Pt okay to come to PCU.
[2018-01-08 03:12] LABS: Magnesium 1.3 mg/dL (1.6-2.6)
[2018-01-08 03:41] LABS: Anion Gap 11 (5-15); BUN 33 mg/dL (7-18); BUN/Creat Ratio 29.7 RATIO (10-20); Calcium,Total 7.8 mg/dL (8.5-10.1); Chloride 104 mmol/L (98-107); Creatinine, Serum 1.11 mg/dL (0.55-1.02); EST Glomerular Filtration Rate 50 mL/min (>60); Est Glom Filt Rate - Afr Amer 61 mL/min (>60); Estimated Creatinine Clearance 31.44 ml/min; Glucose 93 mg/dL (74-106); Sodium Level 142 mmol/L (136-145)
[2018-01-08] MEDS: 0.9% Normal Saline 1,000 ML 100 ML IV (05:12)
[2018-01-08 05:50] LABS: Absolute Lymphocyte Count 0.83 X10^3/ul (0.83-4.51); Absolute Neutrophil Count 5.3 X10^3/uL (2.0-7.7); Basophil# 0.02 X10^3/uL; Basophil% 0.3 % (0-1); Eosinophil# 0.37 X10^3/uL; Eosinophils% 5.1 % (0-5); Hematocrit 23.6 % (37-47); Hemoglobin 7.2 g/dl (12.0-15.0); Lymphocyte # 0.83 X10^3/ul (4.0); Lymphocyte % 11.5 % (19-41); Mean Corp Hgb Conc 30.5 g/gl (32-36); Mean Corpuscular Hgb 28.6 pg (27.0-32.0); Mean Corpuscular Volume 93.7 fL (81-99); Mean Platelet Vol. 11.7 fl (6.2-12.0); Monocyte# 0.65 X10^3/uL; Neutrophil # 5.31 X10^3/uL (2.7-7.7); Neutrophil % 73.5 % (47-70); Platelet Count 133 K/mm3 (150-450); RBC Distribution Width CV 16.1 % (11.6-14.6); RBC Distribution Width SD 52.1 fl (35.1-43.9); Red Blood Count 2.52 M/mm3 (4.2-5.4); White Blood Count 7.2 K/mm3 (4.4-11.0)
[2018-01-08 05:51] LABS: Differential Indicated SCAN CRITERIA MET; POSITIVE COUNT NO; POSITIVE DIFFERENTIAL NO; POSITIVE MORPHOLOGY YES
[2018-01-08] MEDS: Ipratropium/Albuterol Sulfate 3 ML AMPUL.NEB INHALATION ×4 (07:11→18:51)
--- NOTE | 2018-01-08 07:29 | PCM.CON.CC ---
Reason for Consult Date of Consultation: 01/08/18 Reason for Consultation: Distributive shock History of Present Illness: The patient is an 83-year-old female, with a history as outlined below, who presented to the emergency department from the TCU with hypotension. She also reportedly sustained a mechanical fall prior to being transferred to the ED. The patient is a DNR CCA without plans for intubation. She was evaluated by palliative care while in the TCU on January 05. The patient was just recently admitted to the hospital December 26 and treated for acute on chronic hypoxic respiratory failure due to presumptive healthcare associated pneumonia. The patient has significant comorbidities and has been admitted to the hospital multiple times in the last several months for a multitude of issues. The patient does follow with Dr. Bella of cardiology and was last seen by him at the end of October 2017. The patient's last surface echocardiogram dated October 06, 2017 revealed normal LV size and function with an ejection fraction of 55%. There was evidence of a mildly dilated RV along with mild global RV systolic dysfunction, biatrial enlargement and a right ventricular systolic pressure estimated to be 66 mmHg. The patient does have a history of coronary artery disease for which she is status post bypass surgery in October 2015, aortic valve disease with aortic valve replacement and is status post biventricular ICD implantation. The patient did complete an overnight polysomnogram at the end of November 2017 which only demonstrated an overall apnea hypotony index of 1.1 events per hour. On presentation to the emergency department, the patient was noted to be afebrile with a blood pressure of 151/98. Laboratory evaluation revealed no evidence of a leukocytosis. However, she did have a notable drop in her hemoglobin from 9.0 g/dL on January 06 to 7.0 g/dL on presentation. INR was noted to be 2.1. Chemistry profile was notable for acute kidney injury with a creatinine of 1.26 along with hypokalemia with a potassium of 3.2. Troponin was elevated to 0.051. Plain film x-ray of the hip and pelvis revealed a possible fracture of the proximal left femur adjacent to the prosthesis versus loosening of the prosthesis. Past Medical History Past Medical History (Chronic Problems): Chronic Problems (Last Reviewed 11/20/17 @ 18:03 by BETTIE Shah) Pulmonary fibrosis (Chronic) Coronary artery disease (Chronic) Hypothyroidism (Chronic) TIA (transient ischemic attack) (Chronic) Pulmonary hypertension (Chronic) RVSP 66 mmHg CHF (congestive heart failure) (Chronic) Cardiomyopathy (Chronic) Ischemic cardiomyopathy (Chronic) Paroxysmal atrial fibrillation (Chronic) 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) Hyperthyroidism (Chronic) Hypokalemia (Chronic) Atherosclerotic heart disease of [place] coronary artery without angina pectoris (Chronic) CABG x1 RANDLE-LAD x/Aortic Valve Replacement Left bundle-branch block (Chronic) Nonrheumatic aortic valve stenosis (Chronic) HTN (hypertension) (Chronic) Other chest pain (Chronic) Presence of aortocoronary bypass graft (Chronic) Dyspnea on exertion (Chronic) Fatigue (Chronic) Chronic pulmonary heart disease (Chronic) CVA (cerebral infarction) (Chronic) Hyperlipidemia (Chronic) Paroxysmal ventricular tachycardia (Chronic) HTN (hypertension) (Chronic) Hypothyroidism associated with surgical procedure (Chronic) had a subtotal thyroidectomy for goiter Hemorrhoids (Chronic) Restless leg syndrome (Chronic) TIA (transient ischemic attack) (Chronic) multiple History of aortic valve replacement with bioprosthetic valve (Chronic) Medical History: Medical History (Last Reviewed 11/20/17 @ 18:03 by Graciela Andrew, PHYSICAL THERAPIST-C) Ischemic cardiomyopathy (Chronic) I25.5 Paroxysmal atrial fibrillation (Chronic) I48.0 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) Z95.810 Hyperthyroidism (Chronic) E05.90 Hypokalemia (Chronic) E87.6 Atherosclerotic heart disease of [place] coronary artery without angina pectoris (Chronic) I25.10 CABG x1 RANDLE-LAD x/Aortic Valve Replacement Left bundle-branch block (Chronic) I44.7 Nonrheumatic aortic valve stenosis (Chronic) I35.0 HTN (hypertension) (Chronic) I10 Other chest pain (Chronic) R07.89 Dyspnea on exertion (Chronic) R06.09 Fatigue (Chronic) R53.83 Chronic pulmonary heart disease (Chronic) I27.9 CVA (cerebral infarction) (Chronic) I63.9 Hyperlipidemia (Chronic) E78.5 Paroxysmal ventricular tachycardia (Chronic) I47.2 HTN (hypertension) (Chronic) I10 Neck swelling (Acute) R22.1 left supraclavicular fossa and left neck Hypothyroidism associated with surgical procedure (Chronic) E89.0 had a subtotal thyroidectomy for goiter Hemorrhoids (Chronic) K64.9 Restless leg syndrome (Chronic) TIA (transient ischemic attack) (Chronic) multiple History of aortic valve replacement with bioprosthetic valve (Chronic) Z95.4 Allergies adhesive Allergy (Verified 01/07/18 22:19) Other Blisters etodolac Allergy (Verified 01/07/18 22:19) Unknown oxycodone HCl [From Percocet] Allergy (Verified 01/07/18 22:19) Hives phenobarbital Allergy (Verified 01/07/18 22:19) Unknown tolmetin sodium [From Tolectin] Allergy (Verified 01/07/18 22:19) Unknown venlafaxine Allergy (Verified 01/07/18 22:19) Unknown nitroglycerin Adverse Reaction (Verified 01/07/18 22:19) Other Headach nitropatch Allergy (Uncoded 11/20/17 09:14) unknown Home Medications: Ambulatory Orders Medication Instructions Recorded Magnesium Oxide [Mag-Ox 400] 400 mg PO DAILY@0800 09/17/15 Nitroglycerin [Nitrostat] 0.4 mg SUBLINGUAL Q5M PRN 09/20/15 gabapentin 100 mg capsule 100 mg PO BREAKFAST 05/05/17 amlodipine 5 mg tablet 5 mg PO DAILY 06/23/17 atorvastatin 40 mg tablet 20 mg PO QHS tab 06/23/17 Cholecalciferol (Vitamin D3) 1,000 unit PO DAILY@0807/06/17 [Vitamin D3] Aspirin E.C. [Ecotrin] 81 mg PO DAILY@0800 10/11/17 Furosemide [Lasix] 40 mg PO DAILY 10/11/17 Escitalopram Oxalate [Lexapro] 10 mg PO DAILY 12/26/17 Esomeprazole Magnesium 40 mg PO DAILY 12/26/17 Gabapentin [Neurontin] 100 mg PO LUNCH 12/26/17 Gabapentin [Neurontin] 300 mg PO QHS 12/26/17 Iron Polysaccharide Complex 150 mg PO QODAY@0800 12/26/17 [Ferrex 150] Menthol/Lanolin/Calamine/Znox 1 applic TOPICAL 0600,0 12/26/17 [Calmoseptine Ointment] Ipratropium/Albuterol Sulfate 3 ml INHALATION Q4HWA.RT 12/29/17 [Duoneb] Acetaminophen [Tylenol] 1,000 mg PO Q8H PRN PRN tablet 01/06/18 Budesonide Aerosol [Pulmicort 0.5 mg INHALATION Q12H.RT #60 01/06/18 Respules] ampul.neb. Potassium Chloride [K-Dur] 20 meq PO DAILYCM tablet 01/06/18 Carvedilol 25 mg PO DAILY 01/08/18 Lisinopril [Zestril] 40 mg PO DAILY 01/08/18 Pantoprazole Sodium [Protonix] 40 mg PO DAILY 01/08/18 Polyethylene Glycol 3350 [Miralax] 17 gm PO DAILY 01/08/18 Tramadol HCl [Ultram] 50 mg PO Q6H PRN PRN 01/08/18 Surgical History: Surgical History (Last Reviewed 11/20/17 @ 18:03 by BETTIE Shah) History of hip replacement (Resolved) Z96.649 Presence of aortocoronary bypass graft (Chronic) Z95.1 H/O aortic valve replacement Z95.2 21 mm Magna Ease Pericardial Valve H/O right and left heart catheterization Onset Date: 09/24/15 Z98.890 History of appendectomy Z90.49 History of hysterectomy Z98.890, Z90.710 History of left heart catheterization (LHC) Z98.890 2000, 2006, 2009, 2013. History of total right knee replacement (TKR) Z96.651 Hx of CABG Z95.1 CABG x1 RANDLE-LAD x/Aortic Valve Replacement Hx of cholecystectomy Z98.890, Z90.49 aortaplasty with pericardial patch closure Onset Date: 10/26/15 at Surgical History: appendectomy, cholecystectomy, coronary bypass surgery, hysterectomy - She still has ovaries and fallopian tubes. The hysterectomy was done for dysfunctional uterine bleeding., pacemaker implantation, total hip arthroplasty, - - Bioprosthetic aortic valve replacement with CABG in October 2015 Psychiatric History: Anxiety, Depression FNP History: No pertinent FNP history Lives: Long-Term Smoking Status: Never smoker Tobacco Use: Non-smoker Alcohol: None Drugs: None - *Family History Maternal Family History: Family History (Last Reviewed 11/20/17 @ 18:03 by BETTIE Shah) Father Myocardial infarction, Onset Age: 45 Hypertension Heart disease Mother Myocardial infarction, Onset Age: 64 CAD (coronary artery disease) Hypertension Brother Myocardial infarction, Onset Age: 59 Heart disease CAD (coronary artery disease) CVA (cerebral vascular accident) Hypertension Sister CAD (coronary artery disease) Hypertension Daughter Diabetes HLD (hyperlipidemia) Son Hypertension HLD (hyperlipidemia) CAD (coronary artery disease) History Items: Heart Disease, Hypertension Paternal Family History: Family History (Last Reviewed 11/20/17 @ 18:03 by DAJUAN ShahC) Father Myocardial infarction, Onset Age: 45 Hypertension Heart disease Mother Myocardial infarction, Onset Age: 64 CAD (coronary artery disease) Hypertension Brother Myocardial infarction, Onset Age: 59 Heart disease CAD (coronary artery disease) CVA (cerebral vascular accident) Hypertension Sister CAD (coronary artery disease) Hypertension Daughter Diabetes HLD (hyperlipidemia) Son Hypertension HLD (hyperlipidemia) CAD (coronary artery disease) History Items: High Cholesterol, Heart Disease Review of Systems Constitutional: Reports: Weakness. Denies: Chills, Fever Eyes: Denies: Blurred vision, Double vision HEENT: Reports: Difficulty Hearing Cardiovascular: Denies: Chest Pain, Palpitations Respiratory: Denies: Cough, Shortness of Breath Gastrointestinal: Denies: Abdominal Pain, Nausea, Vomiting Genitourinary: Denies: Dysuria Musculoskeletal: Reports: Joint Pain Skin: Denies: Rash, Wounds Neurological: Reports: Balance problems Psychiatric: Denies: Anxiety, Depression, Homicidal Ideations, Suicidal Ideations Hematologic/ Lymphatic: Reports: Anemia Objective: The patient's most recent lab work, culture data and imaging studies have all been personally reviewed. Stool for occult blood was negative. Blood and urine cultures are pending. - Physical Exam General: Alert, Cooperative, No apparent distress HEENT: Atraumatic, PERRLA, Normocephalic Oral: Dry Mucosa Neck: Supple, No Nodes, Trachea Midline Lungs: No rhonchi, No wheeze, No rales, Diminished Cardiovascular: Regular rate, Regular Rhythm, Normal S1, Normal S2, No murmurs Abdomen: Bowel Sounds Present, Soft, Non Tender, Non-Distended Extremities: No clubbing, No cyanosis, No edema Skin: No breakdown Musculoskeletal: No Tenderness to Palpation of Joints or Extremities Lymphatic: No Cervical, Supraclavicular, or Inguinal Adenopathy Neurological: Neuro grossly intact Psych/Mental Status: Normal Affect, Appropriate Vital Signs Temp Pulse Resp BP Pulse Ox 97.7 F L 81 17 82/43 L 100 01/08/18 04:00 01/08/18 07:00 01/08/18 07:00 01/08/18 07:00 01/08/18 07:00 Oxygen Flow Rate (L/min) 2 Oxygen Delivery Method Nasal Cannula Weight: 149 lb 14.629 oz Body Mass Index (BMI) 27.3 Intake and Output for Last 24 Hours 01/06/18 01/07/18 01/08/18 23:59 23:59 23:59 Intake Total 601 / 601 Output Total 250 / 250 Balance 351 / 351 Laboratory Tests Past 24 Hrs 01/08/18 01/08/18 01/08/18 02:33 02:33 02:33 WBC RBC Hgb Hct MCV MCH MCHC RDW RDW Differential Plt Count MPV Immature Gran % (Auto) Neut % (Auto) Lymph % (Auto) [place] % (Auto) Eos % (Auto) Baso % (Auto) Absolute Neuts (auto) Absolute Lymphs (auto) Total Counted PT INR Sodium 142 Potassium 3.0 L Chloride 104 Carbon Dioxide 27.0 Anion Gap 11 BUN 33 H Creatinine 1.11 H Estim Creat Clear Calc 31.44 Est GFR (MDRD) Af Amer 61 Est GFR (MDRD) Non-Af 50 L BUN/Creatinine Ratio 29.7 H Glucose 93 Calcium 7.8 L Magnesium 1.3 L Troponin I 0.046 H Blood Type Antibody Screen Crossmatch 01/08/18 01/08/18 01/08/18 05:20 05:20 05:20 WBC 7.2 RBC 2.52 L Hgb 7.2 L Hct 23.6 L MCV 93.7 MCH 28.6 MCHC 30.5 L RDW 16.1 H RDW Differential 52.1 H Plt Count 133 L MPV 11.7 Immature Gran % (Auto) 0.600 Neut % (Auto) 73.5 H Lymph % (Auto) 11.5 L [place] % (Auto) 9.0 Eos % (Auto) 5.1 H Baso % (Auto) 0.3 Absolute Neuts (auto) 5.3 Absolute Lymphs (auto) 0.83 Total Counted Not Reportable PT Cancelled INR Cancelled Sodium Potassium Chloride Carbon Dioxide Anion Gap BUN Creatinine Estim Creat Clear Calc Est GFR (MDRD) Af Amer Est GFR (MDRD) Non-Af BUN/Creatinine Ratio Glucose Calcium Magnesium Troponin I Blood Type O POSITIVE Antibody Screen NEGATIVE Crossmatch 01/08/18 01/08/18 05:20 05:20 WBC RBC Hgb Hct MCV MCH MCHC RDW RDW Differential Plt Count MPV Immature Gran % (Auto) Neut % (Auto) Lymph % (Auto) [place] % (Auto) Eos % (Auto) Baso % (Auto) Absolute Neuts (auto) Absolute Lymphs (auto) Total Counted PT INR Sodium Potassium Chloride Carbon Dioxide Anion Gap BUN Creatinine Estim Creat Clear Calc Est GFR (MDRD) Af Amer Est GFR (MDRD) Non-Af BUN/Creatinine Ratio Glucose Calcium Magnesium Troponin I 0.046 H Blood Type Antibody Screen Crossmatch See Detail Clinical Impression(s) from Imaging Studies Hip/Pelvis X-Ray 01/07/18 22:44 IMPRESSION: 1. Possible fracture of the proximal left femur adjacent to the prosthesis versus loosening of the prosthesis. 2. Osteoporosis. Electronically Signed: Vikki Garcia MD at 0:44 EDT , Service support , Chest X-Ray 01/07/18 23:50 IMPRESSION: Pacemaker leads are in proper position. Lungs are expanded. There are chronic fibrotic changes with possible superimposed interstitial infiltrates in the LEFT lung. There is no demonstrated pleural abnormality. Heart is enlarged. There has been open heart surgery. Electronically Signed: Bryan Reynolds MD at 1:01 EDT , Service support , Assessment/Plan RECOMMENDATIONS: 1. Proceed with blood transfusion in order to maintain a hemoglobin at or above 7 g/dL. 2. Cautious use of fluids given underlying cardiac dysfunction and valvular heart disease. 3. Discontinue morphine immediately given renal insufficiency and age. 4. Change Protonix to IV formulation and dose twice daily. 5. Await evaluation by orthopedic surgery to determine aggressiveness of treatment. IMPRESSIONS: 1. Hypotension Potentially related to anemia versus hypovolemia. Patient is currently receiving transfusion of packed red blood cells. She has also been volume resuscitated. She is currently afebrile without evidence of a leukocytosis. Will continue current supportive measures and if the patient becomes hemodynamically unstable, Levophed will be initiated to maintain stability. 2. Acute on chronic anemia Unclear etiology. Regardless, the patient has been transfused 2 units packed red blood cells. Plan to recheck H&H posttransfusion. Recommend continuing PPI therapy. 3. Mechanical fall with possible fracture of the proximal left femur The patient is unlikely to be a surgical candidate. Orthopedic surgery is going to see the patient today day. 4. Chronic hypoxemic respiratory failure/unspecified interstitial lung disease The patient is currently maintaining appropriate oxygen saturations on 2 L/min. Her chest imaging looks to be mostly chronic in nature without acute concern for new infectious process. Continue as needed bronchodilators. 5. Coronary artery disease status post CABG/valvular heart disease status post aortic valve replacement/RV systolic dysfunction and pulmonary hypertension Continue outpatient cardiac medication regimen. 6. Acute kidney injury Likely prerenal in etiology. Anticipate improvement with volume expansion and stabilization of hemodynamics. 7. Advanced age and generalized deconditioning/hypertension/hyperlipidemia/hypothyroidism Complicates care, management, recovery and prognosis. Continue to hold antihypertensives and diuretics, given hemodynamic instability. 8. CODE STATUS The patient is currently DNR CCA without plans for intubation, pending evaluation by orthopedic surgery this afternoon. This note was generated with [employer] dictation software. It may contain incorrect words, spelling, and punctuation that were not noted in checking the note before signing. Code Visit Inpatient E&M: 20198 Init Hosp L3
--- NOTE | 2018-01-08 07:45 | NURSING ---
Pt received to ICU 6 from PCU.
--- NOTE | 2018-01-08 09:58 | CASEMGMT ---
RN CM Note. Per Interdisciplinary rounds. Pt in ICU, Daughters and sister available for ICU rounds. Awaiting ortho consult, plan is for lab monitoring, blood products, pain management. Pt is from TCU, SW consult for dc planning. Wandy CRAFTN RN ACM
--- NOTE | 2018-01-08 10:28 | CASEMGMT ---
Addendum entered by Crystal Casas 01/08/18 10:37: Also, as per TRACIE Tee in TCU, pt did agree to palliative services on 01/05/18. SHARLENE Perez, BRITTANY Original Note: SW participated in ICU rounds this morning. Pt's three daughters and pt's twin sister are present. As per physician, pt waiting to see the orthopedic doctor for input regarding possible surgery. SW spoke w/family after rounds, in regard to plan after hospitalization. Pt is here from TCU, and family is aware that pt has 8 Medicare days left, so pt would need to leave TCU after 8 days. SW spoke w/them about pt going to TCU for the 8 days, or just going to a facility where she would stay manager terminal. Family states understanding. They are not certain yet what they will do, would like the bed in TCU possibly, but will decide for certain and let this SW know. Family states they still have the SNF list from the last admission. SW will continue to follow, did let Keely in TCU know to keep the bed for pt in TCU for now. SHARLENE Perez, BRITTANY
--- NOTE | 2018-01-08 11:33 | PCM.PN.HOSP ---
Patient Problems: Active and Suspected Problems (Last Reviewed 11/20/17 @ 18:03 by BETTIE Shah) Hypotension (Acute) Anemia (Acute) Acute kidney injury (Acute) Subjective: Patient seen and examined. She was admitted from the TCU overnight after she sustained a fall while going to the bathroom. Was found to be hypotensive. Patient was recently admitted in the hospital about a week ago and managed for acute on chronic hypoxic respiratory failure due to health associated pneumonia. On admission in the ED, was noted that hemoglobin had dropped from 9 g per DL on December 2096 grams per DL today. INR was 2.1. Chemistry showed AK I with creatinine of 1.26 and hypokalemia and a potassium of 3.2. Troponin was mildly elevated at 0.01. Plain x-ray of the hip and pelvis also revealed a possible fracture of the proximal left femur adjacent to the prosthesis versus loosening of the prosthesis. Patient was initially admitted to PCU and then transferred to ICU on account of worsening anemia and hypotension. She has been receiving IV fluid boluses. Patient denies any fever or chills, any cough or chest pain, any shortness of breath, abdominal pain, any diarrhea vomiting. She does admit to pain in her right hip which he states about 9/10. 12 point review of systems otherwise negative. Labs and vitals reviewed. Vitals/I&O's: Vital Signs Temp Pulse Resp BP Pulse Ox 97.5 F L 83 32 H 82/64 L 96 01/08/18 11:03 01/08/18 11:03 01/08/18 11:03 01/08/18 11:03 01/08/18 11:03 Oxygen Flow Rate (L/min) 2 Oxygen Delivery Method Nasal Cannula Weight: 149 lb 14.629 oz Body Mass Index (BMI) 27.3 Intake and Output for Last 24 Hours 01/06/18 01/07/18 01/08/18 23:59 23:59 23:59 Intake Total 601 / 601 Output Total 250 / 250 Balance 351 / 351 General: Alert, Oriented x3, Cooperative, No apparent distress HEENT: Atraumatic, PERRLA, EOMI, Normocephalic, - - pale mucosa Neck: Supple, No JVD, Negative Carotid Bruits Lungs: Clear to auscultation, Normal air movement, No rhonchi, No wheeze, No rales Cardiovascular: Regular rate, Regular Rhythm, Normal S1, Normal S2, No murmurs Abdomen: Bowel Sounds Present, Soft, Non Tender, Non-Distended, No Hepato-splenomegaly Extremities: No clubbing, No cyanosis, No edema, Capillary Refill Less than 3 Seconds Skin: No rashes, No breakdown Musculoskeletal: No Tenderness to Palpation of Joints or Extremities Neurological: Cranial nerves II-XII grossly intact Psych/Mental Status: Normal Affect, Alert and oriented to time, place, person, mood and affect Laboratory Results 01/08/18 02:33: Magnesium 1.3 L 01/08/18 02:33: Sodium 142, Potassium 3.0 L, Chloride 104, Carbon Dioxide 27.0, Anion Gap 11, BUN 33 H, Creatinine 1.11 H, Estim Creat Clear Calc 31.44, Est GFR (MDRD) Af Amer 61, Est GFR (MDRD) Non-Af 50 L, BUN/Creatinine Ratio 29.7 H, Glucose 93, Calcium 7.8 L 01/08/18 02:33: Troponin I 0.046 H 01/08/18 05:20: Blood Type O POSITIVE, Antibody Screen NEGATIVE 01/08/18 05:20: WBC 7.2, RBC 2.52 L, Hgb 7.2 L, Hct 23.6 L, MCV 93.7, MCH 28.6, MCHC 30.5 L, RDW 16.1 H, RDW Differential 52.1 H, Plt Count 133 L, MPV 11.7, Immature Gran % (Auto) 0.600, Neut % (Auto) 73.5 H, Lymph % (Auto) 11.5 L, [place] % (Auto) 9.0, Eos % (Auto) 5.1 H, Baso % (Auto) 0.3, Absolute Neuts (auto) 5.3, Absolute Lymphs (auto) 0.83, Total Counted Not Reportable 01/08/18 05:20: PT Cancelled, INR Cancelled 01/08/18 05:20: Troponin I 0.046 H 01/08/18 05:20: Crossmatch See Detail Current Medications Acetaminophen (Tylenol) 650 mg PO Q6H PRN PRN PRN Reason: Mild Pain (scale 0-3)/T>100.7 Al Hydroxide/Mg Hydroxide (Mylanta Ii) 30 ml PO Q6H PRN PRN PRN Reason: Gastric burning Albuterol Sulfate (Ventolin Aerosols) 2.5 mg INHALATION Q2H PRN PRN PRN Reason: dyspnea, wheezing Albuterol/Ipratropium (Duoneb) 3 ml INHALATION Q4HWA.RT [facility] Last Admin: 01/08/18 07:11 Dose: 3 ml Atorvastatin Calcium (Lipitor) 20 mg PO QHS [facility] Calamine/Phenol (Calmoseptine Ointment) 1 applic TOPICAL BID WENDY PRN Reason: Protocol Cholecalciferol (Vitamin D) 1,000 unit PO DAILY@0800 [facility] Escitalopram Oxalate (Lexapro) 10 mg PO DAILY [facility] Gabapentin (Neurontin) 100 mg PO LUNCH WENDY Gabapentin (Neurontin) 300 mg PO QHS [facility] Gabapentin (Neurontin) 100 mg PO BREAKFAST [facility] Potassium Chloride (Kcl 10meq/100ml) 10 meq in 100 mls @ 100 mls/hr IV BOLUS Q1H [facility] Stop: 01/08/18 13:59 Magnesium Hydroxide (Milk Of Magnesia) 30 ml PO DAILY PRN PRN Reason: Constipation Magnesium Oxide (Mag-Ox 400) 400 mg PO DAILY@0800 [facility] Ondansetron HCl (Zofran) 4 mg IV Q8H PRN PRN PRN Reason: NAUSEA Pantoprazole Sodium (Protonix) 40 mg PO DAILY [facility] Polyethylene Glycol (Miralax) 17 gm PO DAILY [facility] Polysaccharide Iron Complex (Ferrex 150) 150 mg PO QODAY@0800 [facility] Potassium Chloride (K-Dur) 20 meq PO DAILYCM [facility] Promethazine HCl (Phenergan) 12.5 mg IV Q6H PRN PRN PRN Reason: NAUSEA/VOMITING Sodium Chloride () 5 - 30 ml IV UD PRN PRN Reason: SALINE FLUSH Tramadol HCl (Ultram) 50 mg PO Q6H PRN PRN PRN Reason: MODERATE PAIN (4-5/10) Medical Necessity - Tobacco Use Smoking Status: Never smoker Tobacco Use: Non-smoker Assessment/Plan All Active Problems (Last Reviewed 11/20/17 @ 18:03 by Graciela Andrew NP-C) HCAP (healthcare-associated pneumonia) (Acute) Shortness of breath (Acute) Healthcare associated bacterial pneumonia (Acute) Hypotension (Acute) Anemia (Acute) Acute kidney injury (Acute) History of hip replacement (Resolved) Surgical site infection (Resolved) multilobar HCAP (Acute) Acute respiratory failure with hypoxia (Acute) Neck swelling (Acute) Accelerated hypertension (Resolved) Chest pain (Resolved) DVT of lower extremity (deep venous thrombosis) (Resolved) Nephrolithiasis (Resolved) 1. Left hip pain after mechanical fall fell in TCU yesterday and was found to be hypotensive plain films of left hip read as possible fracture of left femur adjacent to prosthesis vs loosening of prosthesis. reviewed by Dr Parr today: he doesnt think it is a frature of hte left femur patient unable to weight bear PT/OT on board Dr Parr advocated comfort mearsures in light of patient's advanced age and numerous comorbidities. to have conservative management 2. Severe acute on chronic anemia Hb dropped to 7 from 9. baseline is 8-9/ stool for occult blood was negative. coumadin on hold. to be transfused 2 units of PRBCs 3. SALLY likely prerenal due to dehydration being hydrated with IVF will monitor and trend Cr 4. Hypovolemic hypotension: transferred to ICU from PCU o/a of hypotension. being resuscitated with IVF. possibility of pressures discussed with family. They want comfort measures only now. 5. Chronic hypoxic respiratory failure due to COPD and pulmonary fibrosis on home oxygen. to maintain saturation >92%. breathing treatments prn 6. CAD s/p CABG on aspirin, statin and beta hal 7. Hypertension: BP meds on hold o/a of hypotension 8. Paroxysmal Afib s/p pacemaker: Beta hal and anticoagulation on hold as stated above. Will monitor per telemetry. 9. Other chronic medical issues history of CVA: on statin. BP meds on hold dementia: stable. Fall precautions Hyperthyroidism s/p subtotal thyroidectomy: stable chronic systolic and diastolic heart failure: ICD and pacemaker in place. lasix and ACEI as well as beta hal on hold o/a of hypotension. will monitor Code status: DNRCCA do not intubate This note was generated with [employer] dictation software. It may contain incorrect words, spelling, and punctuation that were not noted in checking the note before signing. Code Visit Inpatient E&M: 47970 Disch Hosp
--- NOTE | 2018-01-08 12:16 | PCM.PN.BLA ---
Progress Note X-rays have been reviewed and I spoke with the DURABLE POWER OF PURCHASING SPECIALIST. Based on radiographic examination I do believe patient does have a greater trochanteric fracture and subsidence of the stem consistent with loosening of the stem. I spoke with the family patient was not complaining of pain in the hip until after her recent fall. She remains in the ICU with tentative control of her blood pressure receiving blood products. Her wishes are for DNR CCA and does not wish to proceed with any further surgery. After a thorough discussion with her family DURABLE POWER OF PURCHASING SPECIALIST at this time we are going to proceed with comfort measures and nonoperative treatment which I think is in the patient's best interest considering she was relegated to the ICU after her most recent infection and treatment of the left hip. Family understands and is going to proceed with comfort care measures. At this time patient can be nonweightbearing on the left lower extremity for concerns of fracture propagation and further failure of the femur. She can however do transfers to wheelchair bedside commode or even chair in the room. [facility] Office:
--- NOTE | 2018-01-08 12:19 | PN_ITS ---
Progress Note X-rays have been reviewed and I spoke with the DURABLE POWER OF WAITER/WAITRESS DINING CAR. Based on radiographic examination I do believe patient does have a greater trochanteric fracture and subsidence of the stem consistent with loosening of the stem. I spoke with the family patient was not complaining of pain in the hip until after her recent fall. She remains in the ICU with tentative control of her blood pressure receiving blood products. Her wishes are for DNR CCA and does not wish to proceed with any further surgery. After a thorough discussion with her family DURABLE POWER OF WAITER/WAITRESS DINING [employer] at this time we are going to proceed with comfort measures and nonoperative treatment which I think is in the patient 's best interest considering she was relegated to the ICU after her most recent infection and treatment of the left hip. Family understands and is going to proceed with comfort care measures. At this time patient can be nonweightbearing on the left lower extremity for concerns of fracture propagation and further failure of the femur. She can however do transfers to wheelchair bedside commode or even chair in the room. [facility] Office:
--- NOTE | 2018-01-08 14:41 | CASEMGMT ---
Pt is not going to have surgery. Dr. Carnes spoke w/family, they would like referral made to hospice. SW called [facility], spoke w/Dayana, faxed initial information. Dayana will be here in about 40 minutes to speak w/the family. SW let the family know (3 daughters and twin sister) know that Dayana from Hospice will be here in 40 minutes, will review all options with family. Family states understanding. SW remains available for any additional needs. SHARLENE Perez, TEXTILE TECHNICAL OFFICER
--- NOTE | 2018-01-08 17:10 | PCM.TXEXTCAR ---
- Diet 01/08/18 11:31 NPO [Diet: Nothing Per Oral] Is pt able to select menu?: Yes - Routine Orders/Code Status Enema Type: Fleetz Enema Frequency: Daily PRN Suppository Type: Dulcolax 10mg Suppository Frequency: Daily PRN O2 Frequency: PRN Keep PO Greater than or Equal to (%): 92 - Allergies/Procedures Done in Hospital Allergies/Adverse Reactions: Allergies adhesive Allergy (Verified 01/07/18 22:19) Other Blisters etodolac Allergy (Verified 01/07/18 22:19) Unknown oxycodone HCl [From Percocet] Allergy (Verified 01/07/18 22:19) Hives phenobarbital Allergy (Verified 01/07/18 22:19) Unknown tolmetin sodium [From Tolectin] Allergy (Verified 01/07/18 22:19) Unknown venlafaxine Allergy (Verified 01/07/18 22:19) Unknown nitroglycerin Adverse Reaction (Verified 01/07/18 22:19) Other Headach nitropatch Allergy (Uncoded 11/20/17 09:14) unknown Procedures: None - Type of Care/Length of Stay Estimated LOS: Convalescent Care Less Than 30 days Type of Care Needed: Inpt Hospice Facility Rehab Potential: Poor Prognosis: Poor - Additional Orders/Day of Discharge H&P will serve as current which was dated: 01/08/18 Day of Discharge: 01/08/18 - Dietary and Speech Recommendations Dietitian Recommendations/Changes: Rec consider diet change to cardiac/low cholesterol, low sodium. Will provide strawberre ensure enlive with meals for additional calories and protein if consumed. - Follow Up Care Primary Care Physician: Bijan Austin MD [Primary Care Provider] - Please follow up with your Primary Care Physician in: 1-2 weeks
[2018-01-08] MEDS: HYDROmorphone 0.5 MG/0.5 ML SYRINGE IV (20:31)
[2018-01-08] MEDS: 0.9% NaCl Peripheral Flush Adult/Peds IV (20:44)
--- NOTE | 2018-01-08 20:45 | NURSING ---
Transferred to hospice via ambulance. Dilaudid 0.5mg IV x1 given prior to transport for comfort. Report given to transport team.
--- NOTE | 2018-01-09 07:12 | PCM.DC.SUM ---
Discharge Date and Diagnosis Date of Admission: 01/08/18 Date of Discharge: 01/09/18 - Secondary Discharge Diagnosis Chronic Problems (Last Reviewed 11/20/17 @ 18:03 by Graciela Andrew NP-C) Pulmonary fibrosis (Chronic) Coronary artery disease (Chronic) Hypothyroidism (Chronic) TIA (transient ischemic attack) (Chronic) Pulmonary hypertension (Chronic) RVSP 66 mmHg CHF (congestive heart failure) (Chronic) Cardiomyopathy (Chronic) Ischemic cardiomyopathy (Chronic) Paroxysmal atrial fibrillation (Chronic) 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) Hyperthyroidism (Chronic) Hypokalemia (Chronic) Atherosclerotic heart disease of [place] coronary artery without angina pectoris (Chronic) CABG x1 RANDLE-LAD x/Aortic Valve Replacement Left bundle-branch block (Chronic) Nonrheumatic aortic valve stenosis (Chronic) HTN (hypertension) (Chronic) Other chest pain (Chronic) Presence of aortocoronary bypass graft (Chronic) Dyspnea on exertion (Chronic) Fatigue (Chronic) Chronic pulmonary heart disease (Chronic) CVA (cerebral infarction) (Chronic) Hyperlipidemia (Chronic) Paroxysmal ventricular tachycardia (Chronic) HTN (hypertension) (Chronic) Hypothyroidism associated with surgical procedure (Chronic) had a subtotal thyroidectomy for goiter Hemorrhoids (Chronic) Restless leg syndrome (Chronic) TIA (transient ischemic attack) (Chronic) multiple History of aortic valve replacement with bioprosthetic valve (Chronic) Hospital Course and Treatment Imaging Results: Laboratory Tests 01/07/18 01/07/18 01/07/18 23:10 23:10 23:10 WBC 8.1 RBC 2.46 L Hgb 7.0 L Hct 22.9 L MCV 93.1 MCH 28.5 MCHC 30.6 L RDW 16.3 H RDW Differential 52.8 H Plt Count 152 MPV 11.2 Immature Gran % (Auto) 0.200 Neut % (Auto) 76.9 H Lymph % (Auto) 11.3 L [place] % (Auto) 9.2 Eos % (Auto) 2.2 Baso % (Auto) 0.2 Absolute Neuts (auto) 6.2 Absolute Lymphs (auto) 0.91 Total Counted Not Reportable PT 23.9 H INR 2.1 APTT 40.1 H Sodium 138 Potassium 3.2 L Chloride 101 Carbon Dioxide 28.0 Anion Gap 9 BUN 34 H Creatinine 1.26 H Estim Creat Clear Calc 28.97 Est GFR (MDRD) Af Amer 52 L Est GFR (MDRD) Non-Af 43 L BUN/Creatinine Ratio 27.0 H Glucose 98 Lactic Acid Calcium 8.4 L Magnesium Total Bilirubin 0.40 AST 19 ALT 17 Alkaline Phosphatase 55 Troponin I Total Protein 5.3 L Albumin 2.0 L Globulin 3.3 Albumin/Globulin Ratio 0.6 L Urine Color Urine Clarity Urine pH Ur Specific [place] Urine Protein Urine Glucose (UA) Urine Ketones Urine Occult Blood Urine Nitrite Urine Bilirubin Urine Urobilinogen Ur Leukocyte Esterase Urine RBC Urine WBC Ur Squamous Epith Cells Urine Bacteria Urine Mucus Blood Type Antibody Screen Crossmatch 01/07/18 01/07/18 01/07/18 23:10 23:10 23:30 WBC RBC Hgb Hct MCV MCH MCHC RDW RDW Differential Plt Count MPV Immature Gran % (Auto) Neut % (Auto) Lymph % (Auto) [place] % (Auto) Eos % (Auto) Baso % (Auto) Absolute Neuts (auto) Absolute Lymphs (auto) Total Counted PT INR APTT Sodium Potassium Chloride Carbon Dioxide Anion Gap BUN Creatinine Estim Creat Clear Calc Est GFR (MDRD) Af Amer Est GFR (MDRD) Non-Af BUN/Creatinine Ratio Glucose Lactic Acid 1.2 Calcium Magnesium Total Bilirubin AST ALT Alkaline Phosphatase Troponin I 0.051 H Total Protein Albumin Globulin Albumin/Globulin Ratio Urine Color Yellow Urine Clarity Sl. Cloudy Urine pH 5.0 Ur Specific [place] 1.020 Urine Protein 30 H Urine Glucose (UA) Normal Urine Ketones 15 H Urine Occult Blood Negative Urine Nitrite Negative Urine Bilirubin 1 H Urine Urobilinogen Normal Ur Leukocyte Esterase 25 H Urine RBC 0-5 SEEN Urine WBC 0-5 SEEN Ur Squamous Epith Cells 0 SEEN Urine Bacteria 0 SEEN Urine Mucus 0 SEEN Blood Type Antibody Screen Crossmatch 01/08/18 01/08/18 01/08/18 02:33 02:33 02:33 WBC RBC Hgb Hct MCV MCH MCHC RDW RDW Differential Plt Count MPV Immature Gran % (Auto) Neut % (Auto) Lymph % (Auto) [place] % (Auto) Eos % (Auto) Baso % (Auto) Absolute Neuts (auto) Absolute Lymphs (auto) Total Counted PT INR APTT Sodium 142 Potassium 3.0 L Chloride 104 Carbon Dioxide 27.0 Anion Gap 11 BUN 33 H Creatinine 1.11 H Estim Creat Clear Calc 31.44 Est GFR (MDRD) Af Amer 61 Est GFR (MDRD) Non-Af 50 L BUN/Creatinine Ratio 29.7 H Glucose 93 Lactic Acid Calcium 7.8 L Magnesium 1.3 L Total Bilirubin AST ALT Alkaline Phosphatase Troponin I 0.046 H Total Protein Albumin Globulin Albumin/Globulin Ratio Urine Color Urine Clarity Urine pH Ur Specific [place] Urine Protein Urine Glucose (UA) Urine Ketones Urine Occult Blood Urine Nitrite Urine Bilirubin Urine Urobilinogen Ur Leukocyte Esterase Urine RBC Urine WBC Ur Squamous Epith Cells Urine Bacteria Urine Mucus Blood Type Antibody Screen Crossmatch 01/08/18 01/08/18 01/08/18 05:20 05:20 05:20 WBC 7.2 RBC 2.52 L Hgb 7.2 L Hct 23.6 L MCV 93.7 MCH 28.6 MCHC 30.5 L RDW 16.1 H RDW Differential 52.1 H Plt Count 133 L MPV 11.7 Immature Gran % (Auto) 0.600 Neut % (Auto) 73.5 H Lymph % (Auto) 11.5 L [place] % (Auto) 9.0 Eos % (Auto) 5.1 H Baso % (Auto) 0.3 Absolute Neuts (auto) 5.3 Absolute Lymphs (auto) 0.83 Total Counted Not Reportable PT Cancelled INR Cancelled APTT Sodium Potassium Chloride Carbon Dioxide Anion Gap BUN Creatinine Estim Creat Clear Calc Est GFR (MDRD) Af Amer Est GFR (MDRD) Non-Af BUN/Creatinine Ratio Glucose Lactic Acid Calcium Magnesium Total Bilirubin AST ALT Alkaline Phosphatase Troponin I Total Protein Albumin Globulin Albumin/Globulin Ratio Urine Color Urine Clarity Urine pH Ur Specific [place] Urine Protein Urine Glucose (UA) Urine Ketones Urine Occult Blood Urine Nitrite Urine Bilirubin Urine Urobilinogen Ur Leukocyte Esterase Urine RBC Urine WBC Ur Squamous Epith Cells Urine Bacteria Urine Mucus Blood Type O POSITIVE Antibody Screen NEGATIVE Crossmatch 01/08/18 01/08/18 05:20 05:20 WBC RBC Hgb Hct MCV MCH MCHC RDW RDW Differential Plt Count MPV Immature Gran % (Auto) Neut % (Auto) Lymph % (Auto) [place] % (Auto) Eos % (Auto) Baso % (Auto) Absolute Neuts (auto) Absolute Lymphs (auto) Total Counted PT INR APTT Sodium Potassium Chloride Carbon Dioxide Anion Gap BUN Creatinine Estim Creat Clear Calc Est GFR (MDRD) Af Amer Est GFR (MDRD) Non-Af BUN/Creatinine Ratio Glucose Lactic Acid Calcium Magnesium Total Bilirubin AST ALT Alkaline Phosphatase Troponin I 0.046 H Total Protein Albumin Globulin Albumin/Globulin Ratio Urine Color Urine Clarity Urine pH Ur Specific [place] Urine Protein Urine Glucose (UA) Urine Ketones Urine Occult Blood Urine Nitrite Urine Bilirubin Urine Urobilinogen Ur Leukocyte Esterase Urine RBC Urine WBC Ur Squamous Epith Cells Urine Bacteria Urine Mucus Blood Type Antibody Screen Crossmatch See Detail Diagnostic Data Hip/Pelvis X-Ray 01/07/18 22:44 IMPRESSION: 1. Possible fracture of the proximal left femur adjacent to the prosthesis versus loosening of the prosthesis. 2. Osteoporosis. Electronically Signed: Vikki Garcia MD at 0:44 EDT , Service support , Chest X-Ray 01/07/18 23:50 IMPRESSION: Pacemaker leads are in proper position. Lungs are expanded. There are chronic fibrotic changes with possible superimposed interstitial infiltrates in the LEFT lung. There is no demonstrated pleural abnormality. Heart is enlarged. There has been open heart surgery. Electronically Signed: Bryan Reynolds MD at 1:01 EDT , Service support , orthopedic surgery- Dr Parr Punch Molder- Dr Carnes Operations: None Procedures: None Summary of Care Provided: The patient is a 83 year old F with an extensive past medical history of chronic hypoxic respiratory failure due to chronic COPD and pulmonary fibrosis, CAD status post CABG, aortic valve disease status post replacement, heart failure with reduced ejection fraction and ischemic cardiomyopathy status post ICD placement, hypertension, hyperlipidemia, paroxysmal A. fib and hypothyroidism status post subtotal thyroidectomy as well as history of CVA. She also had a history of left total hip replacement in July 2017 with infectious complications and subsequent revision. Patient was admitted via the ED on 01/08/2018 from TCU with complaint of sudden onset increased lethargy, and low blood pressure. She fell while attempting to use the bathroom and started having severe left hip pain. She was therefore brought to the ED. Patient had recently been admitted in [facility] on 12/26/2017 with worsening dyspnea and was managed for health associated pneumonia. She was discharged to the TCU on 12/29/2017. On admission, x-ray of the left hip showed possible fracture of the proximal left femur adjacent to the prosthesis versus loosening of the prosthesis. Chest x-ray showed pacemaker with chronic changes and interstitial infiltrates in the left lung with no demonstrated pleural abnormality or cardiomegaly. Patient was admitted and managed for general debility status post mechanical fall with possible proximal left femoral fracture, hypertension suspected to be hypovolemic due to dehydration and acute kidney injury due to dehydration. Patient was started on IV fluids and started on pain medication. Patient's labs show that her hemoglobin was around 7.2 and on repeat it showed the same. Patient still remained hypotensive despite IV fluid administration patient was transferred up to the ICU for possible start of vasopressors. Patient was evaluated by orthopedic surgery who thought that there was an acute fracture of the right greater trochanter with loosening of the stem; however, orthopedics recommended conservative management in light of patient's frail status and extensive comorbidities. Hospice was consulted at request of family and patient was discharged to inpatient hospice facility on 01/09/2018. [] Discharge Diet: 2000 mg Sodium Diet Weight Bearing Status: Weight bearing as tolerated Home Medications: Medications to take at Discharge Magnesium Oxide [Mag-Ox 400] 400 mg PO DAILY@0800 09/17/15 Nitroglycerin [Nitrostat] 0.4 mg SUBLINGUAL Q5M PRN 09/20/15 gabapentin 100 mg capsule 100 mg PO BREAKFAST 05/05/17 amlodipine 5 mg tablet 5 mg PO DAILY 06/23/17 atorvastatin 40 mg tablet 20 mg PO QHS tab 06/23/17 Cholecalciferol (Vitamin D3) [Vitamin D3] 1,000 unit PO DAILY@0807/06/17 Aspirin E.C. [Ecotrin] 81 mg PO DAILY@0800 10/11/17 Furosemide [Lasix] 40 mg PO DAILY 10/11/17 Escitalopram Oxalate [Lexapro] 10 mg PO DAILY 12/26/17 Esomeprazole Magnesium 40 mg PO DAILY 12/26/17 Gabapentin [Neurontin] 100 mg PO LUNCH 12/26/17 Gabapentin [Neurontin] 300 mg PO QHS 12/26/17 Iron Polysaccharide Complex [Ferrex 150] 150 mg PO QODAY@0800 12/26/17 Menthol/Lanolin/Calamine/Znox [Calmoseptine Ointment] 1 applic TOPICAL 0600,2200 12/26/17 Ipratropium/Albuterol Sulfate [Duoneb] 3 ml INHALATION Q4HWA.RT 12/29/17 Acetaminophen [Tylenol] 1,000 mg PO Q8H PRN PRN tablet 01/06/18 Budesonide Aerosol [Pulmicort Respules] 0.5 mg INHALATION Q12H.RT #60 ampul.neb. 01/06/18 Potassium Chloride [K-Dur] 20 meq PO DAILYCM tablet 01/06/18 Carvedilol 25 mg PO DAILY 01/08/18 Lisinopril [Zestril] 40 mg PO DAILY 01/08/18 Pantoprazole Sodium [Protonix] 40 mg PO DAILY 01/08/18 Polyethylene Glycol 3350 [Miralax] 17 gm PO DAILY 01/08/18 Tramadol HCl [Ultram] 50 mg PO Q6H PRN PRN 01/08/18 Primary Care Physician: Bijan Austin MD [Primary Care Provider] - Please follow up with your Primary Care Physician in: 1-2 weeks Disposition: Hospice Medical Facility Minutes spent on discharge:: 35 Patient Condition:: Poor Medical Necessity - Tobacco Use Smoking Status: Never smoker Tobacco Use: Non-smoker Meaningful Use Info Meaningful Use Diagnoses (Choose all that apply): None applicable Code Visit Inpatient E&M: 91863 Disch Hosp
== END 2018-01-08 20:45 | disposition hospice, inpatient (51) | DRG 536 ==
LOC: ED 01-08 01:52 → PCU 01-08 02:15 → ICU 01-12 07:54
PROVIDERS: Admitting Provider Family Medicine; Emergency Provider Emergency Medicine; Family Provider Family Medicine; PCP Family Medicine; Visit Provider Student in an Organized Health Care Education/Training Program
DX: S72.112A Displaced fracture of greater trochanter of left femur, initial encounter for closed fracture (principal); N17.9 Acute kidney failure, unspecified; J96.11 Chronic respiratory failure with hypoxia; M97.02XA Periprosthetic fracture around internal prosthetic left hip joint, initial encounter; T84.031A Mechanical loosening of internal left hip prosthetic joint, initial encounter; I50.22 Chronic systolic (congestive) heart failure; Z99.81 Dependence on supplemental oxygen; Z95.1 Presence of aortocoronary bypass graft; I25.10 Atherosclerotic heart disease of native coronary artery without angina pectoris; E78.5 Hyperlipidemia, unspecified; Z86.73 Personal history of transient ischemic attack (TIA), and cerebral infarction without residual deficits; J84.10 Pulmonary fibrosis, unspecified; I25.5 Ischemic cardiomyopathy; I27.20 Pulmonary hypertension, unspecified; E87.6 Hypokalemia; I11.0 Hypertensive heart disease with heart failure; Z95.3 Presence of xenogenic heart valve; I44.7 Left bundle-branch block, unspecified; I35.0 Nonrheumatic aortic (valve) stenosis; G25.81 Restless legs syndrome; Z95.810 Presence of automatic (implantable) cardiac defibrillator; J44.9 Chronic obstructive pulmonary disease, unspecified; Z96.642 Presence of left artificial hip joint; E86.0 Dehydration; W19.XXXA Unspecified fall, initial encounter; I48.0 Paroxysmal atrial fibrillation; Z66 Do not resuscitate; F03.90 Unspecified dementia, unspecified severity, without behavioral disturbance, psychotic disturbance, mood disturbance, and anxiety; D64.9 Anemia, unspecified
CPT/HCPCS: 36415; 71045; 71046; 73502; 80048; 80053; 81001; 82274; 83605; 83735; 84484; 85025; 85610; 85730; 86850; 86900; 86920; 87040; 87077; 87086; 87186; 93005; 93306; 94640; 97802; 99283; J7030; J7040; P9016; P9612; A4216